=== PATIENT | male | born 1945 | race Caucasian/White ===

== ENCOUNTER 2016-10-04 06:44 | Inpatient (IN) | payer OTHER ==
[2016-10-04] VITALS (29 sets, daily range): BP systolic 68–180; BP diastolic 43–86; PULSE 50–75; TEMP 36.5–36.8; O2SAT 90–96; Ht 165.1 cm; Wt 63.2 kg
[~2016-10-04] VITALS: Ht 165.1 cm; Wt 63.2 kg
[~2016-10-04 06:44] MED LIST: ASPI-232 PO; CMD5 PO; FSM70 PO; ISOS120T5 PO; LSN20 PO; LVNIS80 SQ; METO1TAB69 PO; MULT-506 PO; NITR0.4S UT; NRV/10 PO; NXM/40 PO; ROSU40TA PO; VTMD PO
[2016-10-04] MEDS ORDERED: WARF5TAB7 PO ×2 (07:08)
[2016-10-04] MEDS ORDERED: PRED10TA PO (07:08)
[2016-10-04] MEDS ORDERED: TIZA4CAP PO (07:08)
[2016-10-04] MEDS ORDERED: ONDANSETRON INJ 2 MG/ML 2 ML VIAL IV STA (07:13)
[2016-10-04] MEDS ORDERED: MoRPHine SULFATE 4 MG/ML 1 ML CARP\\VIAL IV STA ×2 (07:13→07:58)
[2016-10-04] MEDS ORDERED: SODIUM CHLORIDE 0.9% 1000ML 1,000 ML IV STA (07:13)
[2016-10-04 07:26] LABS: COMPLETE YES; HEMATOCRIT 44.9 % (42-52); IG% 0.8 %; LYMPH ABS # 0.66 K/uL (1.2-3.4); MEAN CELL VOLUME 89.3 fL (80-100); MEAN CORPUSCULAR HEMOGLOBIN 32.2 pg (25-34); MEAN CORPUSCULAR HGB CONC 36.1 g/dl (32-36); MEAN PLATELET VOLUME 10.6 fL (7.4-10.4); MONO % 7.3 %; NEUT % 78.9 %; PLATELET COUNT 200 K/uL (130-400); RED BLOOD COUNT 5.03 M/uL (4.7-6.1); WHITE BLOOD COUNT 5.07 K/uL (4.8-10.8)
[2016-10-04 07:34] LABS: ALT/SGPT 23 U/L (12-78); AST/SGOT 12 U/L (15-37); BLOOD UREA NITROGEN 12 mg/dl (7-18); BUN/CREATININE RATIO 11.1 (10-20); CALCIUM 9.5 mg/dl (8.5-10.1); CARBON DIOXIDE 26 mmol/L (21-32); CHLORIDE 104 mmol/L (98-107); GLUCOSE 121 mg/dl (70-99); MAGNESIUM 2.4 mg/dl (1.8-2.4); SODIUM 140 mmol/L (136-145)
[2016-10-04 07:36] LABS: URINE APPEARANCE CLEAR (CLEAR); URINE BILIRUBIN NEG (NEG); URINE COLOR YELLOW; URINE NITRITE NEG (NEG); URINE PH 7.5 (4.5-7.5); URINE SPECIFIC GRAVITY 1.004 (1.000-1.030); UROBILINOGEN NEG (NEG); ZZUR CULT IF INDIC CLEAN CATCH NO
[2016-10-04 07:37] LABS: ALB/GLOB RATIO 1.3 (0.9-2); ALKALINE PHOSPHATASE 61 U/L (45-117); C-REACTIVE PROTEIN < 0.29 mg/dl (0-0.29); CKMB/CK RATIO 1.5 (0-3.0)
[2016-10-04 07:38] LABS: MANUAL MICROSCOPIC REQUIRED? NO; REVIEW REQ? NO
--- NOTE | 2016-10-04 07:38 | DIAGNOSTIC IMAGING REPORT ---
CHEST ONE VIEW PORTABLE CLINICAL HISTORY: Headache. COMPARISON STUDY: Chest radiograph December 23, [address] December 25, 2015. FINDINGS: Lung volumes are normal. Linear left basilar opacity is suggestive of atelectasis. Cardiomediastinal silhouette is stable. There is no evidence of pulmonary edema. No consolidation is identified. The appearance of the chest is unchanged. Note is made of old right-sided rib fractures. IMPRESSION: No acute cardiopulmonary findings. Electronically signed by: Trip Mckeon M.D. 10/04/2016 7:36 AM Dictated Date/Time: 10/04/2016 7:35 AM
[2016-10-04 07:41] LABS: PARTIAL THROMBOPLASTIN RATIO 1.7; PROTHROMBIN TIME (PATIENT) 62.2 SECONDS (9.0-12.0)
--- NOTE | 2016-10-04 07:48 | DIAGNOSTIC IMAGING REPORT ---
CT OF THE HEAD WITHOUT CONTRAST CLINICAL HISTORY: Headache. Anticoagulation. COMPARISON STUDY: Head CT February 28, 2012. CT DOSE: 537.48 mGy.cm TECHNIQUE: Helical axial images of the head were obtained without IV contrast. Automated exposure control was utilized for the study. FINDINGS: No acute intracranial hemorrhage, midline shift or mass effect is present. Ventricular system is unremarkable. Basilar cisterns are patent. There are no extra-axial collections. Garcia-white differentiation is maintained. There are no findings to suggest acute dural sinus thrombosis or acute territorial infarct. Extensive calcification of the left supraclinoid ICA is again noted. There is no calvarial fracture. Visualized portions of the sinuses and the mastoid air cells are clear. IMPRESSION: No acute intracranial findings. Electronically signed by: Trip Mckeon M.D. 10/04/2016 7:47 AM Dictated Date/Time: 10/04/2016 7:44 AM
[2016-10-04 07:53] LABS: INR 5.4 (0.9-1.1)
[2016-10-04] MEDS ORDERED: MECLIZINE HCL 25 MG TAB PO STA (08:07)
[2016-10-04 08:19] LABS: LYME DISEASE AB IGG NEG (NEG)
[2016-10-04 08:20] LABS: LYME DISEASE AB IGM NEG (NEG)
--- NOTE | 2016-10-04 09:39 | DIAGNOSTIC IMAGING REPORT ---
MRI OF THE BRAIN WITHOUT CONTRAST CLINICAL HISTORY: Headache. Dizziness. COMPARISON STUDY: Head CT February 28, 2012 and October 04, 2016. TECHNIQUE: Utilizing a 1.5 Farnaz magnet and dedicated coil, multiplanar, multiecho imaging of the brain was performed without IV contrast. FINDINGS: There are no areas of restricted diffusion. No acute intracranial hemorrhage, midline shift or mass effect is present. Ventricular system is unremarkable. Basilar cisterns are patent. There are no extra-axial collections. There is a small old infarct within the right occipital lobe. There is an old infarct within the inferior aspect of the left cerebellar hemisphere. No intracranial masses identified on this unenhanced exam. There is a suspected small old infarct within the left frontoparietal region. Calvarial signal is maintained. Orbits and sinuses are unremarkable. There is no fluid within the mastoid air cells. IMPRESSION: 1. No acute intracranial findings. 2. 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 Electronically signed by: Trip Mckeon M.D. 10/04/2016 9:38 AM Dictated Date/Time: 10/04/2016 9:35 AM
--- NOTE | 2016-10-04 09:56 | DIAGNOSTIC IMAGING REPORT ---
MRA OF THE NECK WITH AND WITHOUT CONTRAST CLINICAL HISTORY: Neck pain. Headache. COMPARISON STUDY: None. TECHNIQUE: Unenhanced and contrast-enhanced MRA of the neck was performed. Injection of 20 mL of Magnevist IV was uneventful. NASCET criteria were utilized to estimate the degree of carotid stenosis. FINDINGS: There is no significant stenosis within the bilateral common carotid and internal carotid arteries. There is mild irregularity within the proximal bilateral internal carotid arteries due to atherosclerosis. There is severe stenosis at the origin of the left external carotid artery and moderate stenosis at the origin the right external carotid artery. There is a diminutive right vertebral artery with dominant left vertebral artery. There is suspected moderate stenosis at the origin of the left vertebral artery. IMPRESSION: 1. No significant stenosis within the bilateral common carotid and internal carotid arteries. 2. Stenosis of the bilateral extracranial carotid artery origins, left greater than right. 3. Suspected mild to moderate stenosis at the origin the right subclavian artery. 4. Diminutive right vertebral artery with dominant left vertebral artery. Mild to moderate stenosis at the origin of the left vertebral artery. Electronically signed by: Trip Mckeon M.D. 10/04/2016 9:55 AM Dictated Date/Time: 10/04/2016 9:51 AM
[2016-10-04] MEDS ORDERED: HYDROmorphone INJ 0.5 MG/0.5 ML SYR IV STA (10:07)
[2016-10-04] MEDS ORDERED: NITROGLYCERIN 0.4 MG SL PER TAB CHARGE UT PRN (11:30)
[2016-10-04] MEDS ORDERED: ONDANSETRON INJ 2 MG/ML 2 ML VIAL IV PRN (11:30)
[2016-10-04] MEDS ORDERED: ACETAMINOPHEN 325 MG TAB PO PRN (11:30)
[2016-10-04] MEDS ORDERED: DIAZEPAM 5MG TAB PO ONE (12:00)
[2016-10-04] MEDS ORDERED: DIAZEPAM 5MG TAB PO SCH (12:00)
[2016-10-04] MEDS ORDERED: METOPROLOL SUCC 50MG EXT REL TAB PO ONE (13:30)
[2016-10-04] MEDS ORDERED: AMLODIPINE BESYLATE 5 MG TAB PO ONE (13:30)
[2016-10-04] MEDS ORDERED: METHYLPREDNISOLONE IV 125 MG in SYRINGE 0 ML IV ONE (13:30)
[2016-10-04] MEDS ORDERED: ISOSORBIDE MONONITRATE 60 MG TABCR PO ONE (13:30)
[2016-10-04] MEDS ORDERED: LISINOPRIL 20 MG TAB PO ONE (13:30)
--- NOTE | 2016-10-04 14:09 | Neurology Consultation ---
Neurology Consultation Date of Consultation: Oct 04, 2016. 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 He states several days ago he was [place] was getting out of the car to open the gate and had some head pressure and felt his muscles were weak. He was started on muscle relaxant and steroids taper for neck pain which he thinks is his neck. Then he had an episode of head pressure and dizziness at home. The pressure felt so bad that he thought his head was going to explode and felt off balance. EMS was called and was brought to the ED for further evaluation. He states he no longer smokes but had a history of 1/2 ppd for many years and no further EtOH use after his last episode in July. He was a 3-4 beer per day history. Past Medical/Surgical History Medical Problems: (1) Precordial chest pain Status: Acute (2) Sigmoid diverticulitis Status: Acute Social History Smoking Status: Former smoker Housing Status: lives with family Allergies Coded Allergies: No Known Allergies (Verified , 07/25/16) Current Inpatient Medications Current Inpatient Medications Medications (Trade) Dose Ordered Sig/Eliud Route Start Time Stop Time Status Last Admin Dose Admin Acetaminophen (Tylenol Tab) 650 mg Q4H PRN PO 10/04/16 11:30 11/03/16 11:29 Ondansetron HCl (Zofran Inj) 4 mg Q6H PRN IV 10/04/16 11:30 11/03/16 11:29 Miscellaneous Information (Order Awaiting Action) 1 ea QS N/A 10/04/16 16:00 11/03/16 15:59 Aspirin (Ecotrin Tab) 81 mg DAILY PO 10/05/16 09:00 11/04/16 08:59 Miscellaneous Information (Order Awaiting Action) 1 ea QS N/A 10/04/16 16:00 11/03/16 15:59 Isosorbide Mononitrate (Imdur Ext Rel Tab) 120 mg QAM PO 10/05/16 09:00 11/04/16 08:59 Lisinopril (Zestril Tab) 20 mg BID PO 10/04/16 21:00 11/03/16 20:59 Metoprolol Succinate (Toprol Xl Tab) 100 mg DAILY PO 10/05/16 09:00 11/04/16 08:59 Multivitamins (Multivitamin Tab) 1 tab DAILY PO 10/05/16 09:00 11/04/16 08:59 Nitroglycerin (Nitrostat Tab) 0.4 mg PRN PRN UT 10/04/16 11:30 11/03/16 11:29 Rosuvastatin Calcium (Crestor Tab) 20 mg DAILY PO 10/05/16 09:00 11/04/16 08:59 Amlodipine Besylate (Norvasc Tab) 10 mg QAM PO 10/05/16 09:00 11/04/16 08:59 Pantoprazole Sodium (Protonix Tab) 40 mg QAM PO 10/05/16 09:00 11/04/16 08:59 Tizanidine HCl (Zanaflex Tab) 2 mg Q6H PRN PO 10/04/16 11:30 11/03/16 11:29 Physical Exam Vital Signs (Past 24 Hrs): Date Time Temp Pulse Resp B/P Pulse Ox O2 Delivery O2 Flow Rate FiO2 10/04/16 12:46 36.5 63 20 180/86 10/04/16 12:17 63 20 162/83 98 Room Air 10/04/16 10:27 69 20 148/79 98 Room Air 10/04/16 09:20 64 18 151/86 98 Room Air 10/04/16 08:20 66 16 173/82 96 Room Air 10/04/16 07:30 59 18 163/93 97 Room Air 10/04/16 06:52 97 Room Air 10/04/16 06:47 36.4 64 18 190/87 96 Room Air Physical Exam: Constitutional: appearance nourished, healthy and normal Ears, Nose, Mouth and Throat: mucous membranes somewhat dry Cardiovascular: normal S-1 and S-2 and regular rate and rhythm Respiratory: clear to auscultation (CTA) and no rales, rhonchi or wheeze Musculoskeletal: no peripheral edema and good distal pulses Skin: no stigmata of neurocutaneous disease noted and normal and intact Eyes: extraocular muscles intact (EOMI) and pupils equal, round and reactive to light (PERRL) NEUROLOGIC EXAMINATION: Mental status: Alert and interactive Oriented to full date and location Oriented to person Speech fluent with no evidence of aphasia Cranial Nerves smile eye brow raise symmetric, tongue midline Reflexes: Deep tendon reflexes were symmetrical and graded 2/5. Plantar responses were flexor. Sensory: vibration and GT proprioception in tact, cool touch bilaterally decreased to quintero Coordination: finger to no without bi pass or tremor Gait/Stance: sitting up in bed. nursing walk with slight lean to left Motor: Negative for pronator drift of out stretched arms with eyes closed. 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 Laboratory Results Past 24 Hours: 10/04/16 06:26 Red Blood Count 5.03, Mean Corpuscular Volume 89.3, Mean Corpuscular Hemoglobin 32.2, Mean Corpuscular Hemoglobin Concent 36.1, Mean Platelet Volume 10.6, Neutrophils (%) (Auto) 78.9, Lymphocytes (%) (Auto) 13.0, Monocytes (%) (Auto) 7.3, Eosinophils (%) (Auto) 0.0, Basophils (%) (Auto) 0.0, Neutrophils # (Auto) 4.00, Lymphocytes # (Auto) 0.66, Monocytes # (Auto) 0.37, Eosinophils # (Auto) 0.00, Basophils # (Auto) 0.00 10/04/16 06:26 Test 10/04/16 06:26 10/04/16 06:50 10/04/16 07:29 White Blood Count 5.07 K/uL (4.8-10.8) Red Blood Count 5.03 M/uL (4.7-6.1) Hemoglobin 16.2 g/dL (14.0-18.0) Hematocrit 44.9 % (42-52) Mean Corpuscular Volume 89.3 fL (80-100) Mean Corpuscular Hemoglobin 32.2 pg (25-34) Mean Corpuscular Hemoglobin Concent 36.1 g/dl (32-36) Platelet Count 200 K/uL (130-400) Mean Platelet Volume 10.6 fL (7.4-10.4) Neutrophils (%) (Auto) 78.9 % Lymphocytes (%) (Auto) 13.0 % Monocytes (%) (Auto) 7.3 % Eosinophils (%) (Auto) 0.0 % Basophils (%) (Auto) 0.0 % Neutrophils # (Auto) 4.00 K/uL (1.4-6.5) Lymphocytes # (Auto) 0.66 K/uL (1.2-3.4) Monocytes # (Auto) 0.37 K/uL (0.11-0.59) Eosinophils # (Auto) 0.00 K/uL (0-0.5) Basophils # (Auto) 0.00 K/uL (0-0.2) RDW Standard Deviation 39.1 fL (36.4-46.3) RDW Coefficient of Variation 12.2 % (11.5-14.5) Immature Granulocyte % (Auto) 0.8 % Immature Granulocyte # (Auto) 0.04 K/uL (0.00-0.02) Erythrocyte Sedimentation Rate 12 mm/hr (0-14) Prothrombin Time 62.2 SECONDS (9.0-12.0) Prothromb Time International Ratio 5.4 (0.9-1.1) Activated Partial Thromboplast Time 43.7 SECONDS (21.0-31.0) Partial Thromboplastin Ratio 1.7 Anion Gap 10.0 mmol/L (3-11) Est Creatinine Clear Calc Drug Dose 52.8 ml/min Estimated GFR () 77.3 Estimated GFR (Non- 66.7 BUN/Creatinine Ratio 11.1 (10-20) Calcium Level 9.5 mg/dl (8.5-10.1) Magnesium Level 2.4 mg/dl (1.8-2.4) Total Bilirubin 0.6 mg/dl (0.2-1) Aspartate Amino Transf (AST/SGOT) 12 U/L (15-37) Alanine Aminotransferase (ALT/SGPT) 23 U/L (12-78) Alkaline Phosphatase 61 U/L (45-117) Total Creatine Kinase 55 U/L (39-308) Creatine Kinase MB 0.8 ng/ml (0.5-3.6) Creatine Kinase MB Ratio 1.5 (0-3.0) C-Reactive Protein < 0.29 mg/dl (0-0.29) Total Protein 8.7 gm/dl (6.4-8.2) Albumin 4.9 gm/dl (3.4-5.0) Globulin 3.8 gm/dl (2.5-4.0) Albumin/Globulin Ratio 1.3 (0.9-2) Lipase 152 U/L (73-393) Lyme Disease IgG Antibody NEG (NEG) Lyme Disease IgM Antibody NEG (NEG) Urine Color YELLOW Urine Appearance CLEAR (CLEAR) Urine pH 7.5 (4.5-7.5) Urine Specific [place] 1.004 (1.000-1.030) Urine Protein NEG (NEG) Urine Glucose (UA) NEG (NEG) Urine Ketones NEG (NEG) Urine Occult Blood NEG (NEG) Urine Nitrite NEG (NEG) Urine Bilirubin NEG (NEG) Urine Urobilinogen NEG (NEG) Urine Leukocyte Esterase NEG (NEG) Bedside Troponin I 0.010 ng/ml (0-0.045) Imaging MRI brain- No acute intracranial findings. 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 MRA neck with and without- . No significant stenosis within the bilateral common carotid and internal carotid arteries. Stenosis of the bilateral extracranial carotid artery origins, left greater than right. Impression 71 year old male s/p dizziness and head pressure Plan 1. MRI with no evidence of new stroke 2. light head may be medication related. would stop any non essential narcotics , muscle relaxants 3. blood pressure control 4. INR -hold coumadin 5. MRA no evidence of occlusion 6. PT/OT for further assessment of dizziness with [place] to r/o vertigo 7. MRV to r/o venous thrombus but doubt due to hyper therapeutic INR I have seen and discussed above patient with Dr Miguel Ángel Han, neurology I have seen this man examined him discussed hishistory with his and with Jailene YI andhave reviewed his labs an imaging. New onset headache in a man without a prior history and some accompanying pulsatile tinnitus type sensations with exposure to new medications of zanaflex and steroids pror to onset of symptoms Imaging negative for new issues and do not show a hindbrain malformation MRV unlkely to show mcuh with high inr but history suggests need to exclude venous sinus clot and would recommend stopping steroids and zanaflex to see what transpires in terms of symptoms will follow with you tomorrow Miguel Ángel Han MD
--- NOTE | 2016-10-04 14:10 | History and Physical ---
History & Physical Date & Time of Service: Oct 04, 2016 at 11:36 Chief Complaint: Headache Primary Care Physician: Mario Mosquera MD History of Present Illness Source: patient, clinic records, hospital records This is a 71 year old male with PMH of left renal and splenic infarcts, severe arthrosclerotic plaque in aortic arch and descending aorta, on Coumadin, CAD, diastolic CHF, chart history of PAF, HTN, dyslipidemia, carotid artery disease, who presents to the ED with headache. Patient was hospitalized in 07/2016 and discovered to have left renal and splenic infarcts with URSULA showing severe atherosclerotic plaque in aortic arch and descending aorta. At that time he was continued on aspirin, Plavix was stopped, and Coumadin was initiated. He underwent Zio monitoring in August 2016 which showed 15 runs of SVT. Patient states he was recently feeling at baseline and hunting every day. Then 4 days ago he developed neck pain L >R, with radiation to both shoulders, then developed diffuse "pressure" headache. He initially thought he pulled a muscle. He lifts a 100 lb bag of corn every day but that is usual for him. He was seen by Dr. Fischer in clinic on 10/01, had x-ray of c-spine showing mild degenerative changes, L shoulder x-ray- unremarkable, and was started on prednisone taper and tizanidine for cervical sprain/ muscle spasm. Patient states pain improved around his shoulders but continued with constant MADRIGAL for past 4 days and neck pain which is worse with movement. He also reports feeling his heart beating in his ears x 4 days. Then this morning while sitting watching TV, he developed worsening head and neck pain rated 8/10 which felt like his "head was going to blow up". Then upon standing he felt dizzy and was staggering. 911 was called and he was brought to ER by ambulance. He was given Dilaudid and morphine in ER with improvement of pain to 5/10. He reports generalized weakness. Denies syncope, fall or head trauma,vertigo, vision change, photophobia, focal weakness or numbness, speech difficulty, fever, chills, sweats, URI symptoms, cough, chest pain, SOB, abdominal pain, N/V, change in bowel or bladder movements, calf pain, edema, abnormal bleeding. Denies prior hx of TIA or CVA. As per RN, when ambulating in ER patient was leaning to the right and stumbling. Past Medical/Surgical History Medical Problems: (1) CAD (coronary artery disease) Permanent Comment: 2009 - NSTEMI 2012 - anterolateral STEMI, s/p POBA to LAD diagonal artery occlusion Status: Chronic (2) Carotid stenosis Status: Chronic (3) Diastolic CHF Permanent Comment: echo 12/2015 - EF 60-65%, grade II diastolic dysfunction Status: Chronic (4) Dyslipidemia Status: Chronic (5) GERD (gastroesophageal reflux disease) Status: Chronic (6) HTN (hypertension) Status: Chronic (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 Status: Chronic (8) Osteoporosis Status: Chronic (9) 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 Status: Chronic Surgical Problems: (1) History of total right hip replacement Status: Chronic Family History Diabetes mellitus FATHER Hypertension MOTHER Stroke MOTHER Social History Smoking Status: Former Smoker (quit in 2005, prior 1/2 ppd for approximately 55 years) Alcohol Use: none (none since July 2016) Drug Use: none Marital Status: Housing status: lives with significant other Immunizations History of Influenza Vaccine: Yes Influenza Vaccine Date: Jun 18, 2016 History of Tetanus Vaccine?: Yes Tetanus Immunization Date: Nov 16, 2013 History of Pneumococcal: Yes Pneumococcal Date: Nov 08, 2015 Multi-Drug Resistant Organisms History of MDRO: No Allergies Coded Allergies: No Known Allergies (Verified , 07/25/16) Home Medications Scheduled Alendronate Sodium (Alendronate Sodium), 70 MG PO 1XWK Amlodipine Besylate (Amlodipine Besylate), 10 MG PO DAILY Aspirin (Aspir-81), 81 MG PO DAILY Ergocalciferol (Vitamin D), 50,000 UNITS PO 1XWK Esomeprazole Magnesium (Nexium), 40 MG PO DAILY Isosorbide Mononitrate Ext Rel (Imdur Ext Rel), 120 MG PO QAM Lisinopril (Lisinopril), 20 MG PO BID Metoprolol Succ (Toprol Xl) (Toprol-Xl ), 100 MG PO DAILY Multivitamin (Multivitamin), 1 TABLET PO DAILY Nitroglycerin (Nitrostat), 0.4 MG UT PRN Prednisone Tab (Prednisone), 10 MG PO UD Rosuvastatin Calcium (Crestor), 20 MG PO DAILY Warfarin Sod (Jantoven), 5 MG PO WK Warfarin Sod (Jantoven), 2.5 MG PO 6XWK Scheduled PRN Tizanidine (Zanaflex), 2 MG PO Q6 PRN for Muscle Spasms Review of Systems Ten point review of systems performed with pertinent positives and negatives noted in HPI. Physical Exam Vital Signs Date Time Temp Pulse Resp B/P Pulse Ox O2 Delivery O2 Flow Rate FiO2 10/04/16 10:27 69 20 148/79 98 Room Air 10/04/16 09:20 64 18 151/86 98 Room Air 10/04/16 08:20 66 16 173/82 96 Room Air 10/04/16 07:30 59 18 163/93 97 Room Air 10/04/16 06:52 97 Room Air 10/04/16 06:47 36.4 64 18 190/87 96 Room Air General Appearance: WD/WN, no apparent distress Head: normocephalic, atraumatic Eyes: normal inspection, PERRL, EOMI ENT: hearing grossly normal, pharynx normal Neck: supple, trachea midline Respiratory/Chest: lungs clear, normal breath sounds, no respiratory distress, no accessory muscle use Cardiovascular: regular rate, rhythm, no murmur Abdomen/GI: normal bowel sounds, non tender, soft Extremities/Musculoskelatal: normal inspection, no calf tenderness, normal capillary refill, no pedal edema, + pertinent finding (L>R cervical paraspinal muscle tenderness. 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, no motor/sensory deficits, alert, normal mood/affect, oriented x 3, + pertinent finding (finger to nose intact bilaterally) Skin: normal color, warm/dry Diagnostics Laboratory Results Results Past 24 Hours Test 10/04/16 06:26 10/04/16 06:50 10/04/16 07:29 Range/Units White Blood Count 5.07 4.8-10.8 K/uL Red Blood Count 5.03 4.7-6.1 M/uL Hemoglobin 16.2 14.0-18.0 g/dL Hematocrit 44.9 42-52 % Mean Corpuscular Volume 89.3 80-100 fL Mean Corpuscular Hemoglobin 32.2 25-34 pg Mean Corpuscular Hemoglobin Concent 36.1 32-36 g/dl Platelet Count 200 130-400 K/uL Mean Platelet Volume 10.6 7.4-10.4 fL Neutrophils (%) (Auto) 78.9 % Lymphocytes (%) (Auto) 13.0 % Monocytes (%) (Auto) 7.3 % Eosinophils (%) (Auto) 0.0 % Basophils (%) (Auto) 0.0 % Neutrophils # (Auto) 4.00 1.4-6.5 K/uL Lymphocytes # (Auto) 0.66 1.2-3.4 K/uL Monocytes # (Auto) 0.37 0.11-0.59 K/uL Eosinophils # (Auto) 0.00 0-0.5 K/uL Basophils # (Auto) 0.00 0-0.2 K/uL RDW Standard Deviation 39.1 36.4-46.3 fL RDW Coefficient of Variation 12.2 11.5-14.5 % Immature Granulocyte % (Auto) 0.8 % Immature Granulocyte # (Auto) 0.04 0.00-0.02 K/uL Erythrocyte Sedimentation Rate 12 0-14 mm/hr Prothrombin Time 62.2 9.0-12.0 SECONDS Prothromb Time International Ratio 5.4 0.9-1.1 Activated Partial Thromboplast Time 43.7 21.0-31.0 SECONDS Partial Thromboplastin Ratio 1.7 Sodium Level 140 136-145 mmol/L Potassium Level 4.0 3.5-5.1 mmol/L Chloride Level 104 98-107 mmol/L Carbon Dioxide Level 26 21-32 mmol/L Anion Gap 10.0 3-11 mmol/L Blood Urea Nitrogen 12 7-18 mg/dl Creatinine 1.10 0.60-1.40 mg/dl Est Creatinine Clear Calc Drug Dose 52.8 ml/min Estimated GFR () 77.3 Estimated GFR (Non- 66.7 BUN/Creatinine Ratio 11.1 10-20 Random Glucose 121 70-99 mg/dl Calcium Level 9.5 8.5-10.1 mg/dl Magnesium Level 2.4 1.8-2.4 mg/dl Total Bilirubin 0.6 0.2-1 mg/dl Aspartate Amino Transf (AST/SGOT) 12 15-37 U/L Alanine Aminotransferase (ALT/SGPT) 23 12-78 U/L Alkaline Phosphatase 61 45-117 U/L Total Creatine Kinase 55 39-308 U/L Creatine Kinase MB 0.8 0.5-3.6 ng/ml Creatine Kinase MB Ratio 1.5 0-3.0 C-Reactive Protein < 0.29 0-0.29 mg/dl Total Protein 8.7 6.4-8.2 gm/dl Albumin 4.9 3.4-5.0 gm/dl Globulin 3.8 2.5-4.0 gm/dl Albumin/Globulin Ratio 1.3 0.9-2 Lipase 152 73-393 U/L Lyme Disease IgG Antibody NEG NEG Lyme Disease IgM Antibody NEG NEG Urine Color YELLOW Urine Appearance CLEAR CLEAR Urine pH 7.5 4.5-7.5 Urine Specific [place] 1.004 1.000-1.030 Urine Protein NEG NEG Urine Glucose (UA) NEG NEG Urine Ketones NEG NEG Urine Occult Blood NEG NEG Urine Nitrite NEG NEG Urine Bilirubin NEG NEG Urine Urobilinogen NEG NEG Urine Leukocyte Esterase NEG NEG Bedside Troponin I 0.010 0-0.045 ng/ml Diagnostic Radiology CT OF THE HEAD WITHOUT CONTRAST CLINICAL HISTORY: Headache. Anticoagulation. COMPARISON STUDY: Head CT February 28, 2012. CT DOSE: 537.48 mGy.cm TECHNIQUE: Helical axial images of the head were obtained without IV contrast. Automated exposure control was utilized for the study. FINDINGS: No acute intracranial hemorrhage, midline shift or mass effect is present. Ventricular system is unremarkable. Basilar cisterns are patent. There are no extra-axial collections. Garcia-white differentiation is maintained. There are no findings to suggest acute dural sinus thrombosis or acute territorial infarct. Extensive calcification of the left supraclinoid ICA is again noted. There is no calvarial fracture. Visualized portions of the sinuses and the mastoid air cells are clear. IMPRESSION: No acute intracranial findings. CHEST ONE VIEW PORTABLE CLINICAL HISTORY: Headache. COMPARISON STUDY: Chest radiograph December 23, [address] December 25, 2015. FINDINGS: Lung volumes are normal. Linear left basilar opacity is suggestive of atelectasis. Cardiomediastinal silhouette is stable. There is no evidence of pulmonary edema. No consolidation is identified. The appearance of the chest is unchanged. Note is made of old right-sided rib fractures. IMPRESSION: No acute cardiopulmonary findings. MRA OF THE NECK WITH AND WITHOUT CONTRAST CLINICAL HISTORY: Neck pain. Headache. COMPARISON STUDY: None. TECHNIQUE: Unenhanced and contrast-enhanced MRA of the neck was performed. Injection of 20 mL of Magnevist IV was uneventful. NASCET criteria were utilized to estimate the degree of carotid stenosis. FINDINGS: There is no significant stenosis within the bilateral common carotid and internal carotid arteries. There is mild irregularity within the proximal bilateral internal carotid arteries due to atherosclerosis. There is severe stenosis at the origin of the left external carotid artery and moderate stenosis at the origin the right external carotid artery. There is a diminutive right vertebral artery with dominant left vertebral artery. There is suspected moderate stenosis at the origin of the left vertebral artery. IMPRESSION: 1. No significant stenosis within the bilateral common carotid and internal carotid arteries. 2. Stenosis of the bilateral extracranial carotid artery origins, left greater than right. 3. Suspected mild to moderate stenosis at the origin the right subclavian artery. 4. Diminutive right vertebral artery with dominant left vertebral artery. Mild to moderate stenosis at the origin of the left vertebral artery. MRI OF THE BRAIN WITHOUT CONTRAST CLINICAL HISTORY: Headache. Dizziness. COMPARISON STUDY: Head CT February 28, 2012 and October 04, 2016. TECHNIQUE: Utilizing a 1.5 Farnaz magnet and dedicated coil, multiplanar, multiecho imaging of the brain was performed without IV contrast. FINDINGS: There are no areas of restricted diffusion. No acute intracranial hemorrhage, midline shift or mass effect is present. Ventricular system is unremarkable. Basilar cisterns are patent. There are no extra-axial collections. There is a small old infarct within the right occipital lobe. There is an old infarct within the inferior aspect of the left cerebellar hemisphere. No intracranial masses identified on this unenhanced exam. There is a suspected small old infarct within the left frontoparietal region. Calvarial signal is maintained. Orbits and sinuses are unremarkable. There is no fluid within the mastoid air cells. IMPRESSION: 1. No acute intracranial findings. 2. 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 EKG NSR, 60 bpm, no ST or T wave abnormalities Impression Assessment and Plan HEADACHE Likely tension headache related to cervical paraspinal muscle spasms Treated with Dilaudid 0.5 mg IV and morphine total of 8 mg IV in ER Outpatient C-spine x-ray showed mild degenerative change; outpatient L shoulder x-ray unremarkable CT head- no acute findings MRI brain- no acute findings; + 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 Will try Valium and methylprednisolone x 1 dose Consult neurology; appreciate recommendations Will hold tizanidine as per neurology- may contribute to dizziness DIZZINESS/ BALANCE DIFFICULTY MRI brain- no acute findings, + 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 MRA neck- "1. No significant stenosis within the bilateral common carotid and internal carotid arteries. 2. Stenosis of the bilateral extracranial carotid artery origins, left greater than right. 3. Suspected mild to moderate stenosis at the origin the right subclavian artery. 4. Diminutive right vertebral artery with dominant left vertebral artery. Mild to moderate stenosis at the origin of the left vertebral artery." Has chart history of PAF; currently in sinus rhythm; Zio monitor Aug 2016 showed mostly sinus with 1st degree AV block with runs of SVT, possibly atrial tachycardia with variable block Continue aspirin and statin (not able to tolerate higher dose due to myalgias as per prior cardiology note) Hold Coumadin for supratherapeutic INR PT/ OT evaluations Consult neurology; appreciate recommendations Will hold tizanidine as per neurology- may be contributing to dizziness HISTORY OF LEFT RENAL AND SPLENIC INFARCT Noted in CT July 2016 URSULA in Jul 2016 showed severe atherosclerotic plaque Saw hematology and rheumatology as outpatient - per rheum note 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 Ejection Fraction = 60-65%. There is mild concentric left ventricular hypertrophy. Grade I diastolic dysfunction, (abnormal relaxation pattern). No significant valvular disease. DVT PROPHYLAXIS SCD's Hold Coumadin due to supratherapeutic INR CODE STATUS Full code per my discussion with the patient DISPOSITION Admitted to telemetry Patient seen in collaboration with Dr. Chaney. Please see her addendum. I have seen, examined and discussed this patient with Ami Delcid and I agree with the above note. 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 Vitals notable for elevated BP on presentation. PE: General- awake; alert; NAD Eyes- EOMI; no scleral icterus Neck- no stridor; trachea midline; no rigidity Lungs- CTA bilaterally anteriorly Heart- RRR; no m/r/g Abdomen- soft; NTND; nBS Extremities- no c/c/e; no deformity Neuro- no gross focal deficits; strength 5/5 bilateral UE and LE Skin- no appreciable rash or bruising Labs, imaging, EKG reviewed. Headache- Neurology consulted. MRI negative for acute stroke. MRV pending. Improved. Avoid narcotics and muscle relaxants as may be contributing to dizziness. HTN- Now hypotensive after receiving home medications plus narcotics. Responds to fluid boluses. Hold home medications for now. Supra-therapeutic INR- Hold warfarin. Agree with remainder of plan as outlined above. . VTE Prophylaxis VTE Risk Assessment Done? Y/N: Yes Risk Level: Moderate
[2016-10-04] MEDS ORDERED: NURSING VERBAL MED ORDER ONE ×2 (17:30→19:00)
[2016-10-04] MEDS ORDERED: SODIUM CHLORIDE 0.9% 1000ML 250 ML IV SCH ×2 (17:45→19:00)
[2016-10-05] VITALS (7 sets, daily range): BP systolic 115–155; BP diastolic 56–73; PULSE 56–81; TEMP 36.4–36.9; O2SAT 93–96
[2016-10-05 05:27] LABS: MEAN CELL VOLUME 90.5 fL (80-100); MEAN CORPUSCULAR HEMOGLOBIN 31.8 pg (25-34); MEAN CORPUSCULAR HGB CONC 35.1 g/dl (32-36); MEAN PLATELET VOLUME 10.2 fL (7.4-10.4); PLATELET COUNT 207 K/uL (130-400); RED BLOOD COUNT 4.53 M/uL (4.7-6.1); WHITE BLOOD COUNT 6.22 K/uL (4.8-10.8)
[2016-10-05 05:33] LABS: INR 3.5 (0.9-1.1); PROTHROMBIN TIME (PATIENT) 38.9 SECONDS (9.0-12.0)
[2016-10-05 06:01] LABS: BUN/CREATININE RATIO 22.7 (10-20); CALCIUM 8.3 mg/dl (8.5-10.1); CREATININE 1.2 mg/dl (0.60-1.40); MAGNESIUM 2.4 mg/dl (1.8-2.4); POTASSIUM 4.3 mmol/L (3.5-5.1)
[2016-10-05] MEDS ORDERED: ALENDRONATE SODIUM 70 MG TAB PO SCH (07:00)
[2016-10-05] MEDS ORDERED: METOPROLOL SUCC 50MG EXT REL TAB PO SCH (09:00)
[2016-10-05] MEDS ORDERED: AMLODIPINE BESYLATE 5 MG TAB PO SCH (09:00)
[2016-10-05] MEDS ORDERED: ERGOCALCIFEROL 50,000 INTER.UNIT CAP PO SCH (09:00)
[2016-10-05] MEDS ORDERED: ISOSORBIDE MONONITRATE 60 MG TABCR PO SCH (09:00)
[2016-10-05] MEDS: ROSUVASTATIN CALCIUM 20 MG TAB PO SCH (09:57)
[2016-10-05] MEDS: ASPIRIN 81 MG ECTAB PO SCH (09:57)
[2016-10-05] MEDS: PANTOprazole SOD 40 MG TAB PO SCH (09:58)
[2016-10-05] MEDS: MULTIVITAMIN TAB PO SCH (09:58)
--- NOTE | 2016-10-05 12:09 | DIAGNOSTIC IMAGING REPORT ---
MRV HEAD WITHOUT CONTRAST CLINICAL HISTORY: Headaches. Evaluate for dural sinus thrombosis. COMPARISON STUDY: Head CT and MRI the brain October 04, 2016. TECHNIQUE: Utilizing a 1.5 Farnaz magnet and [id number] technique, unenhanced MRV of the intracranial circulation was obtained. FINDINGS: The superior sagittal sinus, straight sinus, transverse sinuses and sigmoid sinuses are patent. The left transverse sinus is somewhat diminutive, likely on a congenital basis. A few small apparent filling defects within the sinuses likely reflect arachnoid granulations. No dural sinus thrombus is identified on this examination. IMPRESSION: No evidence of dural sinus thrombosis. Electronically signed by: Trip Mckeon M.D. 10/05/2016 12:08 PM Dictated Date/Time: 10/05/2016 12:04 PM
--- NOTE | 2016-10-05 12:59 | Neurology Progress Notes ---
Neurology Progress Note Date of Service Oct 05, 2016. Quentin Morales is a 71 year old with a PMH of left renal and splenic infarcts, severe arthrosclerotic plaque in aortic arch and descending aorta, on Coumadin, CAD, diastolic CHF, chart history of PAF, HTN, dyslipidemia, carotid artery disease. He states several days ago he was [place] his [place] was getting out of the car to open the gate and had some head pressure and felt his muscles were weak. He was started on muscle relaxant and steroids taper for neck pain which he thinks is his neck. Then he had an episode of head pressure and dizziness at home. The pressure felt so bad that he thought his head was going to explode and felt off balance. EMS was called and was brought to the ED for further evaluation. He states he no longer smokes but had a history of 1/2 ppd for many years and no further EtOH use after his last episode in July. He was a 3-4 beer per day history. He and his are in the room this am. He states his headache is bad again. denies one side weakness numbness tingling, SOB, CP, abdominal pain, N, V. Objective Date Time Temp Pulse Resp B/P Pulse Ox O2 Delivery O2 Flow Rate FiO2 10/05/16 10:00 81 20 124/70 95 Room Air 10/05/16 08:00 Room Air 10/05/16 08:00 36.6 70 20 134/70 94 Room Air 10/05/16 04:00 36.5 57 18 115/65 93 Room Air 10/05/16 04:00 Room Air 10/04/16 23:59 Room Air 10/04/16 23:59 36.6 50 12 97/49 94 Room Air 10/04/16 20:00 36.5 53 14 80/48 93 Room Air 10/04/16 20:00 Room Air 10/04/16 18:46 55 16 82/43 94 10/04/16 18:30 53 16 92/48 94 10/04/16 17:59 55 19 85/45 91 10/04/16 17:48 54 19 91/47 91 10/04/16 17:30 56 20 89/50 92 10/04/16 17:30 55 15 93 10/04/16 17:28 56 14 89/50 92 10/04/16 17:15 57 15 93 10/04/16 17:13 53 14 77/45 94 10/04/16 17:01 56 17 87/50 10/04/16 17:00 53 14 93 10/04/16 16:59 55 16 68/49 10/04/16 16:45 56 16 90 10/04/16 16:30 60 15 90 10/04/16 16:15 57 16 93 10/04/16 16:00 55 17 94 10/04/16 15:58 56 18 135/77 94 10/04/16 15:53 93 Room Air 10/04/16 15:45 56 13 91 10/04/16 15:30 63 20 109/74 94 10/04/16 15:30 55 12 94 10/04/16 15:28 55 22 109/74 91 10/04/16 15:15 54 14 92 10/04/16 15:00 56 11 92 10/04/16 14:30 61 13 92 10/04/16 14:28 63 20 132/80 94 10/04/16 14:00 96 10/04/16 14:00 72 20 93 10/04/16 13:59 36.8 75 15 131/70 91 Room Air 10/04/16 12:46 36.5 63 20 180/86 Last 24 Hours Test 10/05/16 05:10 White Blood Count 6.22 K/uL Red Blood Count 4.53 M/uL Hemoglobin 14.4 g/dL Hematocrit 41.0 % Mean Corpuscular Volume 90.5 fL Mean Corpuscular Hemoglobin 31.8 pg Mean Corpuscular Hemoglobin Concent 35.1 g/dl RDW Standard Deviation 40.8 fL RDW Coefficient of Variation 12.3 % Platelet Count 207 K/uL Mean Platelet Volume 10.2 fL Prothrombin Time 38.9 SECONDS Prothromb Time International Ratio 3.5 Sodium Level 140 mmol/L Potassium Level 4.3 mmol/L Chloride Level 104 mmol/L Carbon Dioxide Level 27 mmol/L Anion Gap 9.0 mmol/L Blood Urea Nitrogen 27 mg/dl Creatinine 1.20 mg/dl Est Creatinine Clear Calc Drug Dose 48.4 ml/min Estimated GFR () 69.6 Estimated GFR (Non- 60.1 BUN/Creatinine Ratio 22.7 Random Glucose 168 mg/dl Calcium Level 8.3 mg/dl Magnesium Level 2.4 mg/dl Imaging: MRV head- FINDINGS: The superior sagittal sinus, straight sinus, transverse sinuses and sigmoid sinuses are patent. The left transverse sinus is somewhat diminutive, likely on a congenital basis. A few small apparent filling defects within the sinuses likely reflect arachnoid granulations. No dural sinus thrombus is identified on this examination. Exam: Physical Exam: Constitutional: , appearance nourished, healthy and normal Ears, Nose, Mouth and Throat: mucous membranes moist, no injection and skin normal, eyes normal Cardiovascular: normal S-1 and S-2 and regular rate and rhythm Respiratory: clear to auscultation (CTA) and no rales, rhonchi or wheeze Musculoskeletal: no peripheral edema and good distal pulses Skin: no stigmata of neurocutaneous disease noted and normal and intact Eyes: extraocular muscles intact (EOMI) and pupils equal, round and reactive to light (PERRL) NEUROLOGIC EXAMINATION: Mental status: Alert and interactive Oriented to full date and location Oriented to person Speech fluent with no evidence of aphasia Cranial Nerves smile, eye brow raise symmetric, tongue midline Reflexes: Deep tendon reflexes were brisk Plantar responses were flexor. Sensory: decreased sensation mid quintero to toes to cool, vibration intact, GT proprioception intact Coordination: Romberg positive for eye closed Gait/Stance: Posture normal. Gait steady small steps, squaring of turn Motor: Negative for pronator drift of out stretched arms with eyes closed. 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 triceps, deltoids bilaterally 5/5, hip flex plantar flex ext 5 /5 bilaterally Current Inpatient Medications Medications (Trade) Dose Ordered Sig/Eliud Route Start Time Stop Time Status Last Admin Dose Admin Acetaminophen (Tylenol Tab) 650 mg Q4H PRN PO 10/04/16 11:30 11/03/16 11:29 Ondansetron HCl (Zofran Inj) 4 mg Q6H PRN IV 10/04/16 11:30 11/03/16 11:29 Aspirin (Ecotrin Tab) 81 mg DAILY PO 10/05/16 09:00 11/04/16 08:59 10/05/16 09:57 81 MG Isosorbide Mononitrate (Imdur Ext Rel Tab) 120 mg QAM PO 10/05/16 09:00 11/04/16 08:59 Future hold Lisinopril (Zestril Tab) 20 mg BID PO 10/04/16 21:00 11/03/16 20:59 Future hold Metoprolol Succinate (Toprol Xl Tab) 100 mg DAILY PO 10/05/16 09:00 11/04/16 08:59 Future Hold Multivitamins (Multivitamin Tab) 1 tab DAILY PO 10/05/16 09:00 11/04/16 08:59 10/05/16 09:58 1 TAB Nitroglycerin (Nitrostat Tab) 0.4 mg PRN PRN UT 10/04/16 11:30 11/03/16 11:29 Rosuvastatin Calcium (Crestor Tab) 20 mg DAILY PO 10/05/16 09:00 11/04/16 08:59 10/05/16 09:57 20 MG Amlodipine Besylate (Norvasc Tab) 10 mg QAM PO 10/05/16 09:00 11/04/16 08:59 Future Hold Pantoprazole Sodium (Protonix Tab) 40 mg QAM PO 10/05/16 09:00 11/04/16 08:59 10/05/16 09:58 40 MG Alendronate Sodium (Fosamax Tab) 70 mg Fr@0700 PO 10/05/16 07:00 11/04/16 06:59 Ergocalciferol (Vitamin D Cap) 50,000 interunit Fr@0900 PO 10/05/16 09:00 11/04/16 08:59 10/05/16 09:59 50,000 INTERUNIT Impression 71 year old male s/p dizziness and head pressure Plan 1. MRI with no evidence of new stroke 2. light headedness may be medication related. would stop any non essential narcotics, muscle relaxants 3. blood pressure control yesterday meds held for low BP, this am restarted 4. INR -hold Coumadin restart when appropriate 5. MRA no evidence of occlusion 6. PT/OT for discharge needs 7. MRV to r/o venous thrombus but doubt due to hyper therapeutic INR, some congenital abnormalities but no thrombus 8. if blood pressure remain labile would order TTE and order cardiology consult I have seen and discussed above patient with Dr Miguel Ángel Han, neurology Better headache much less rare pulsatile sensations and mrv is normal ( not surprised ) cause of syndrome not clear but suspect steroids and perhaps zanaflex ( even though both agents are often used to treat headaches ) BP fluctuating and inr is still falling I will check him tomorrow but for now neurology has no further recommendations Above reviewd with Jailene Han MD
--- NOTE | 2016-10-05 18:15 | Progress Note ---
Medicine Progress Note Date & Time of Visit: Oct 05, 2016 at 18:05. Subjective Patient seen and examined. Head pressure significantly better today. Denies any dizziness or lightheadedness. Objective Last 8 Hrs Date Time Temp Pulse Resp B/P Pulse Ox O2 Delivery O2 Flow Rate FiO2 10/05/16 16:00 Room Air 10/05/16 16:00 36.9 56 15 119/68 96 Room Air 10/05/16 12:00 66 16 155/73 94 Room Air Physical Exam: General-awake; alert; NAD Eyes-EOMI; no scleral icterus Neck-no stridor; trachea midline Lungs-CTA bilaterally; no wheezes/crackles Heart-RRR Abdomen-soft; NTND; nBS Extremities-no c/c/e; no deformity Neuro-no gross focal deficits Laboratory Results: Last 24 Hours Test 10/05/16 05:10 White Blood Count 6.22 K/uL Red Blood Count 4.53 M/uL Hemoglobin 14.4 g/dL Hematocrit 41.0 % Mean Corpuscular Volume 90.5 fL Mean Corpuscular Hemoglobin 31.8 pg Mean Corpuscular Hemoglobin Concent 35.1 g/dl RDW Standard Deviation 40.8 fL RDW Coefficient of Variation 12.3 % Platelet Count 207 K/uL Mean Platelet Volume 10.2 fL Prothrombin Time 38.9 SECONDS Prothromb Time International Ratio 3.5 Sodium Level 140 mmol/L Potassium Level 4.3 mmol/L Chloride Level 104 mmol/L Carbon Dioxide Level 27 mmol/L Anion Gap 9.0 mmol/L Blood Urea Nitrogen 27 mg/dl Creatinine 1.20 mg/dl Est Creatinine Clear Calc Drug Dose 48.4 ml/min Estimated GFR () 69.6 Estimated GFR (Non- 60.1 BUN/Creatinine Ratio 22.7 Random Glucose 168 mg/dl Calcium Level 8.3 mg/dl Magnesium Level 2.4 mg/dl Assessment & Plan HEADACHE Possible tension headache related to cervical paraspinal muscle spasms Received Dilaudid and morphine in ER Outpatient C-spine x-ray showed mild degenerative change; outpatient L shoulder x-ray unremarkable CT head- no acute findings MRI brain- no acute findings; + 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 MRV negative for thrombus Consulted neurology Will hold tizanidine as per neurology- may contribute to dizziness 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 Noted in CT July 2016 URSULA in Jul 2016 showed severe atherosclerotic plaque Saw hematology and rheumatology as outpatient - per rheum note 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 Ejection Fraction = 60-65%. There is mild concentric left ventricular hypertrophy. Grade I diastolic dysfunction, (abnormal relaxation pattern). No significant valvular disease. DVT PROPHYLAXIS SCD's Hold Coumadin due to supratherapeutic INR CODE STATUS Full code Consultants: Neurology Procedures: CT head No acute intracranial findings. MRA neck 1. No significant stenosis within the bilateral common carotid and internal carotid arteries. 2. Stenosis of the bilateral extracranial carotid artery origins, left greater than right. 3. Suspected mild to moderate stenosis at the origin the right subclavian artery. 4. Diminutive right vertebral artery with dominant left vertebral artery. Mild to moderate stenosis at the origin of the left vertebral artery. MRI brain 1. No acute intracranial findings. 2. 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 MRV head No evidence of dural sinus thrombosis. Current Inpatient Medications: Current Inpatient Medications Medications (Trade) Dose Ordered Sig/Eliud Route Start Time Stop Time Status Last Admin Dose Admin Acetaminophen (Tylenol Tab) 650 mg Q4H PRN PO 10/04/16 11:30 11/03/16 11:29 Ondansetron HCl (Zofran Inj) 4 mg Q6H PRN IV 10/04/16 11:30 11/03/16 11:29 Aspirin (Ecotrin Tab) 81 mg DAILY PO 10/05/16 09:00 11/04/16 08:59 10/05/16 09:57 81 MG Isosorbide Mononitrate (Imdur Ext Rel Tab) 120 mg QAM PO 10/05/16 09:00 11/04/16 08:59 Future hold Lisinopril (Zestril Tab) 20 mg BID PO 10/04/16 21:00 11/03/16 20:59 Future hold Metoprolol Succinate (Toprol Xl Tab) 100 mg DAILY PO 10/05/16 09:00 11/04/16 08:59 Future Hold Multivitamins (Multivitamin Tab) 1 tab DAILY PO 10/05/16 09:00 11/04/16 08:59 10/05/16 09:58 1 TAB Nitroglycerin (Nitrostat Tab) 0.4 mg PRN PRN UT 10/04/16 11:30 11/03/16 11:29 Rosuvastatin Calcium (Crestor Tab) 20 mg DAILY PO 10/05/16 09:00 11/04/16 08:59 10/05/16 09:57 20 MG Amlodipine Besylate (Norvasc Tab) 10 mg QAM PO 10/05/16 09:00 11/04/16 08:59 Future Hold Pantoprazole Sodium (Protonix Tab) 40 mg QAM PO 10/05/16 09:00 11/04/16 08:59 10/05/16 09:58 40 MG Alendronate Sodium (Fosamax Tab) 70 mg Fr@0700 PO 10/05/16 07:00 11/04/16 06:59 Ergocalciferol (Vitamin D Cap) 50,000 interunit Fr@0900 PO 10/05/16 09:00 11/04/16 08:59 10/05/16 09:59 50,000 INTERUNIT
[2016-10-05] MEDS: LISINOPRIL 20 MG TAB PO SCH (20:35)
[2016-10-06 00:01] VITALS: O2SAT 95
[2016-10-06 03:09] VITALS: BP 136/69; PULSE 58; TEMP 36.5; O2SAT 94
[2016-10-06 04:00] VITALS: O2SAT 94
[2016-10-06 06:58] LABS: HEMATOCRIT 40.2 % (42-52); MEAN CELL VOLUME 89.9 fL (80-100); MEAN CORPUSCULAR HEMOGLOBIN 32.2 pg (25-34); MEAN CORPUSCULAR HGB CONC 35.8 g/dl (32-36); MEAN PLATELET VOLUME 10.3 fL (7.4-10.4); PLATELET COUNT 169 K/uL (130-400); RED BLOOD COUNT 4.47 M/uL (4.7-6.1); WHITE BLOOD COUNT 5.01 K/uL (4.8-10.8)
[2016-10-06 07:13] LABS: INR 2.4 (0.9-1.1); PROTHROMBIN TIME (PATIENT) 27.1 SECONDS (9.0-12.0)
[2016-10-06 07:37] LABS: BUN/CREATININE RATIO 23.5 (10-20); CALCIUM 8.3 mg/dl (8.5-10.1); CREATININE 1.1 mg/dl (0.60-1.40); POTASSIUM 3.6 mmol/L (3.5-5.1)
[2016-10-06] MEDS: PANTOprazole SOD 40 MG TAB PO SCH (08:01)
[2016-10-06] MEDS: MULTIVITAMIN TAB PO SCH (08:01)
[2016-10-06] MEDS: ASPIRIN 81 MG ECTAB PO SCH (08:02)
[2016-10-06] MEDS: ROSUVASTATIN CALCIUM 20 MG TAB PO SCH (08:02)
[2016-10-06] MEDS: LISINOPRIL 20 MG TAB PO SCH (08:02)
[2016-10-06 08:03] VITALS: BP 132/69; PULSE 54; TEMP 36.7; O2SAT 95
--- NOTE | 2016-10-06 12:12 | Discharge Instructions ---
Discharge Instructions Admission Reason for Admission: Headache Discharge Discharge Diagnosis / Problem: Headache Discharge Goals Goal(s): Decrease discomfort Activity Recommendations Activity Limitations: resume your previous activity . Instructions / Follow-Up Instructions / Follow-Up Please follow up with Family Medicine Dr. Mosquera on October 10 at 12: 50pm. Please follow up with Cardiology Noel Knapp on October 17 at 1:15pm. You will be contacted regarding anticoagulation clinic follow up. Please take your medications as previously prescribed. Current Hospital Diet Patient's current hospital diet: AHA Diet (Heart Healthy) Discharge Diet Recommended Diet: AHA Diet (Heart Healthy) Pending Studies Studies pending at discharge: no Medical Emergencies . Who to Call and When: Medical Emergencies: If at any time you feel your situation is an emergency, please call 911 immediately. . Non-Emergent Contact Non-Emergency issues call your: Primary Care Provider, Set Up / Operator . . "Provider Documentation" section prepared by Maria Elena Choi. VTE Core Measure Inpt VTE Proph given/why not?: Warfarin (Coumadin)
[2016-10-06 12:27] VITALS: BP 110/62; PULSE 77; TEMP 36.4; O2SAT 93
--- NOTE | 2016-10-06 12:28 | PROGRESS NOTE ---
DATE: 10/06/2016 Andrew has been moved out of the unit. He is now in room 239 and probably will be discharged as he is completely free of headaches. He is walking without assistance. He feels he is back to his baseline and his INR is now finally in the therapeutic range. At this point, we do not have an explanation for his headache syndrome other than the fact that he was put on medications which he had not seen before, i.e. prednisone and Zanaflex. Of the 2 I would more suspect the prednisone for being responsible, but again we are not even sure if medications were involved. He has not had any evidence for a subarachnoid hemorrhage despite his elevated INR. There is no venous sinus thrombosis. There is no evidence for new CVA or significant arterial lesions. At this point, then I think he can be discharged to follow up with his primary care physician and if headaches return then neurology can get re-involved in this case, but for now I do not think we need to see him on a regular basis. MTDSena
[2016-10-06 12:29] VITALS: BP 110/62; PULSE 77; TEMP 36.4; O2SAT 93
--- NOTE | 2016-10-06 15:52 | Discharge Summary ---
Discharge Summary Admission Date: Oct 04, 2016 at 11:23 Discharge Date: Oct 06, 2016 Discharge Disposition: Home Principal Diagnosis: Headache Procedures: CT head No acute intracranial findings. MRA neck 1. No significant stenosis within the bilateral common carotid and internal carotid arteries. 2. Stenosis of the bilateral extracranial carotid artery origins, left greater than right. 3. Suspected mild to moderate stenosis at the origin the right subclavian artery. 4. Diminutive right vertebral artery with dominant left vertebral artery. Mild to moderate stenosis at the origin of the left vertebral artery. MRI brain 1. No acute intracranial findings. 2. 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 MRV head No evidence of dural sinus thrombosis. Consultations: Neurology Medication Reconciliation Continued Medications: Alendronate Sodium (Alendronate Sodium) 70 Mg Tab 70 MG PO 1XWK, #4 TAKE 70 MG ONCE A WEEK Amlodipine Besylate (Amlodipine Besylate) 10 Mg Tab 10 MG PO DAILY Aspirin (Aspir-81) 81 Mg Tab 81 MG PO DAILY, TAB 3 Refills Ergocalciferol (Vitamin D) 50,000 Interunit Cap 05636 UNITS PO 1XWK, #12 TAKE 35927 UNITS OF VITAMIN D ONCE A WEEK FOR 12 WEEKS Esomeprazole Magnesium (Nexium) 40 Mg Capcr 40 MG PO DAILY, 0 Refills Isosorbide Mononitrate Ext Rel (Imdur Ext Rel) 120 Mg Ertab 120 MG PO QAM, 0 Refills Lisinopril (Lisinopril) 20 Mg Tab 20 MG PO BID, #90 Metoprolol Succ (Toprol Xl) (Toprol-Xl ) 100 Mg Tabcr 100 MG PO DAILY, 0 Refills Multivitamin (Multivitamin) Tab 1 TABLET PO DAILY, 0 Refills Nitroglycerin (Nitrostat) 0.4 Mg Sub 0.4 MG UT PRN, SUB NEEDED FOR CHEST PAIN : ONE TABLET UNDER THE TONGUE EVERY 5 MINUTES UP TO 3 DOSES. Rosuvastatin Calcium (Crestor) 40 Mg Tab 20 MG PO DAILY Warfarin Sod (Jantoven) 5 Mg Tab 5 MG PO WK, TAB TUESDAYS Warfarin Sod (Jantoven) 5 Mg Tab 2.5 MG PO 6XWK, TAB SATURDAY,SATURDAY,SATURDAY,SATURDAY,SATURDAY,SATURDAY Discontinued Medications: Prednisone Tab (Prednisone) 10 Mg Tab 10 MG PO UD, TAB TAPERED DOSE. 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 Patient was hospitalized in 07/2016 and discovered to have left renal and splenic infarcts with URSULA showing severe atherosclerotic plaque in aortic arch and descending aorta. At that time he was continued on aspirin, Plavix was stopped, and Coumadin was initiated. He underwent Zio monitoring in August 2016 which showed 15 runs of SVT. Patient states he was recently feeling at baseline and hunting every day. Then 4 days ago he developed neck pain L >R, with radiation to both shoulders, then developed diffuse "pressure" headache. He initially thought he pulled a muscle. He lifts a 100 lb bag of corn every day but that is usual for him. He was seen by Dr. Fischer in clinic on 10/01, had x-ray of c-spine showing mild degenerative changes, L shoulder x-ray- unremarkable, and was started on prednisone taper and tizanidine for cervical sprain/ muscle spasm. Patient states pain improved around his shoulders but continued with constant MADRIGAL for past 4 days and neck pain which is worse with movement. He also reports feeling his heart beating in his ears x 4 days. Then this morning while sitting watching TV, he developed worsening head and neck pain rated 8/10 which felt like his "head was going to blow up". Then upon standing he felt dizzy and was staggering. 911 was called and he was brought to ER by ambulance. He was given Dilaudid and morphine in ER with improvement of pain to 5/10. He reports generalized weakness. Denies syncope, fall or head trauma,vertigo, vision change, photophobia, focal weakness or numbness, speech difficulty, fever, chills, sweats, URI symptoms, cough, chest pain, SOB, abdominal pain, N/V, change in bowel or bladder movements, calf pain, edema, abnormal bleeding. Denies prior hx of TIA or CVA. As per RN, when ambulating in ER patient was leaning to the right and stumbling. Physical Exam (per Admitting): General Appearance: WD/WN, no apparent distress Head: normocephalic, atraumatic Eyes: normal inspection, PERRL, EOMI ENT: hearing grossly normal, pharynx normal Neck: supple, trachea midline Respiratory/Chest: lungs clear, normal breath sounds, no respiratory distress, no accessory muscle use Cardiovascular: regular rate, rhythm, no murmur Abdomen/GI: normal bowel sounds, non tender, soft Extremities/Musculoskelatal: normal inspection, no calf tenderness, normal capillary refill, no pedal edema, + pertinent finding (L>R cervical paraspinal muscle tenderness. 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 This may have been related to proceeding neck pain, or perhaps related to new medications (ie- tizanidine and/or prednisone); it remains unclear. Patient received Dilaudid and morphine in the ED without improvement. CT head was negative. MRI brain showed 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. MRV was negative for thrombus. Neurology was consulted. Tizanidine and prednisone were discontinued. Patient's headache resolved. PT evaluated patient and felt that he was at his baseline and could safely return home from their perspective. Patient's hospital course was notable for labile blood pressures. This was felt to be likely 2/2 IV pain medications that patient had received in the ED in combination with patient's home antihypertensives. Blood pressures normalized. Hospital course was also notable for elevated INR (5.4 on admission). Coumadin was held and INR normalized at the time of discharge (2.4). Patient was instructed to resume his home medication regimen upon discharge. Patient deemed stable for discharge with Family Medicine follow up. PE on discharge: General- awake; alert; NAD Eyes- EOMI; no scleral icterus Neck- no stridor; trachea midline Lungs- CTA bilaterally; no wheezes/crackles Heart- RRR; no m/r/g Abdomen- soft; NTND; nBS Back- no gross abnormalities Extremities- no c/c/e; no deformity Neuro- no gross focal deficits Skin- no appreciable rash or bruise . Total time spent on discharge = This includes examination of the patient, discharge planning, medication reconciliation, and communication with other providers. Discharge Instructions Discharge Instructions Admission Reason for Admission: Headache Discharge Discharge Diagnosis / Problem: Headache Discharge Goals Goal(s): Decrease discomfort Activity Recommendations Activity Limitations: resume your previous activity . Instructions / Follow-Up Instructions / Follow-Up Please follow up with Family Medicine Dr. Mosquera on October 10 at 12: 50pm. Please follow up with Cardiology Noel Knapp on October 17 at 1:15pm. You will be contacted regarding anticoagulation clinic follow up. Please take your medications as previously prescribed. Current Hospital Diet Patient's current hospital diet: AHA Diet (Heart Healthy) Discharge Diet Recommended Diet: AHA Diet (Heart Healthy) Pending Studies Studies pending at discharge: no Medical Emergencies . Who to Call and When: Medical Emergencies: If at any time you feel your situation is an emergency, please call 911 immediately. . Non-Emergent Contact Non-Emergency issues call your: Primary Care Provider, Knife Glazer . . "Provider Documentation" section prepared by Maria Elena Choi. VTE Core Measure Inpt VTE Proph given/why not?: Warfarin (Coumadin) Additional Copies To Mario Mosquera MD
[2016-10-06] MEDS ORDERED: FRCT/ PO (18:10)
--- NOTE | 2016-10-10 17:20 | EMERGENCY ROOM VISIT NOTE ---
History First contact with patient: 06:52 Chief Complaint: HEADACHE Stated Complaint: HEADACHE History of Present Illness The patient is a 71 year old male who presents to the Emergency Department via EMS for evaluation of a headache. He reports that he has had a waxing and waning headache for the past 2-3 days. He reports intensification of the headache with pulsating to the bilateral moravian area today. He is tried over- the-counter medications without relief of symptoms. The patient is currently taking Coumadin secondary to kidney and splenic infarcts in the past. The patient denies any blurry or double vision. He reports no slurred speech, facial droop, unilateral weakness/numbness, chest pain, palpitations, shortness of breath. The patient does report some mild dizziness and unsteadiness on his feet. He rates his current discomfort as an 8/10. Patient denies any recent illness, fevers, chills, nausea, vomiting, abdominal pain, or extremity weakness. Review of Systems A complete 10-point Review of Systems was discussed with the patient, with pertinent positives and negatives listed in the History of Present Illness. All remaining Review of Systems questions can be considered negative unless otherwise specified. 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 Surgical Problems: (1) History of total right hip replacement Family History Diabetes mellitus FATHER Hypertension MOTHER Stroke MOTHER Social History Smoking Status: Former Smoker (quit in 2005, prior 1/2 ppd for approximately 55 years) Alcohol Use: occasionally Drug Use: none Marital Status: Housing Status: lives with family Current/Historical Medications Scheduled Acetamin/Butalbital/Caffeine (Fioricet), 1 TAB PO Q4 Alendronate Sodium (Alendronate Sodium), 70 MG PO 1XWK Amlodipine Besylate (Amlodipine Besylate), 10 MG PO DAILY Aspirin (Aspir-81), 81 MG PO DAILY Ergocalciferol (Vitamin D), 50,000 UNITS PO 1XWK Esomeprazole Magnesium (Nexium), 40 MG PO DAILY Isosorbide Mononitrate Ext Rel (Imdur Ext Rel), 120 MG PO QAM Lisinopril (Lisinopril), 20 MG PO BID Metoprolol Succ (Toprol Xl) (Toprol-Xl ), 100 MG PO DAILY Multivitamin (Multivitamin), 1 TABLET PO DAILY Nitroglycerin (Nitrostat), 0.4 MG UT PRN Rosuvastatin Calcium (Crestor), 20 MG PO DAILY Warfarin Sod (Jantoven), 5 MG PO WK Warfarin Sod (Jantoven), 2.5 MG PO 6XWK Allergies Coded Allergies: No Known Allergies (Verified , 10/06/16) Physical Exam Vital Signs Date Time Temp Pulse Resp B/P Pulse Ox O2 Delivery O2 Flow Rate FiO2 10/04/16 10:27 69 20 148/79 98 Room Air 10/04/16 09:20 64 18 151/86 98 Room Air 10/04/16 08:20 66 16 173/82 96 Room Air 10/04/16 07:30 59 18 163/93 97 Room Air 10/04/16 06:52 97 Room Air 10/04/16 06:47 36.4 64 18 190/87 96 Room Air Pain Rating (0-10): 8 Physical Exam VITAL SIGNS - Vital signs and nursing notes were reviewed. GENERAL - 71-year-old male appearing his stated age who is in no acute distress. Communicates well with provider and answers questions appropriately. HEAD - Normocephalic, Atraumatic. No Izquierdo's Sign or Raccoon's Eyes. No depressed skull fractures palpable. EYES - PERRL with EOMI bilaterally. Sclera anicteric. Palpebral conjunctiva pink and moist with no injection noted. EARS - No deformities of external structures noted on gross examination bilaterally. No pain elicited with palpation of the tragus bilaterally. External auditory canals without discharge or otorrhea. Tympanic membranes pearly garcia without retraction or bulging. NOSE - Midline and without cyanosis. No epistaxis or purulent drainage noted. Septum midline without deviation or septal hematoma noted. MOUTH/OROPHARYNX - Without perioral cyanosis. Buccal mucosa pink and moist and without leukoplakia. Tongue midline with equal elevation of palate bilaterally. No tonsillar hypertrophy, erythema, or exudates noted. NECK - Neck with FROM. Supple to palpation. No lymphadenopathy noted. No nuchal rigidity. LUNGS - Chest wall symmetric without accessory muscle use, intercostals retractions, or central cyanosis. Normal vesicular breath sounds CTA B/L. No wheezes, rales, or rhonchi appreciated. CARDIAC - RRR with S1/S2. No murmur, rubs, or gallops appreciated. ABDOMEN - Abdominal contour flat and without pulsations or visible masses. BS normoactive all four quadrants. No tenderness, palpable masses, hepatosplenomegaly, or ascites noted. EXTREMITIES - No pretibial edema present. +3/5 radial and dorsalis pedis pulses palpated throughout. FROM with no tremors, fasciculations, or clonus noted on PROM throughout. +5/5 strength noted in UE/LE bilaterally. NEUROLOGIC - Cranial nerves II through XII grossly intact. Sensory intact to light touch throughout. Patellar reflexes +2/4. Patient able to perform rapid alternating movements appropriately. Negative Pronator Drift. PSYCH - A&Ox3 and cooperates fully with examiner. Pt is very pleasant and interacts well with examiner. Medical Decision & Procedures ER Provider Diagnostic Interpretation: Radiological imaging and reports were reviewed by myself. Radiologist's Interpretation as follows: CT OF THE HEAD WITHOUT CONTRAST CLINICAL HISTORY: Headache. Anticoagulation. COMPARISON STUDY: Head CT February 28, 2012. CT DOSE: 537.48 mGy.cm TECHNIQUE: Helical axial images of the head were obtained without IV contrast. Automated exposure control was utilized for the study. FINDINGS: No acute intracranial hemorrhage, midline shift or mass effect is present. Ventricular system is unremarkable. Basilar cisterns are patent. There are no extra-axial collections. Garcia-white differentiation is maintained. There are no findings to suggest acute dural sinus thrombosis or acute territorial infarct. Extensive calcification of the left supraclinoid ICA is again noted. There is no calvarial fracture. Visualized portions of the sinuses and the mastoid air cells are clear. IMPRESSION: No acute intracranial findings. CHEST ONE VIEW PORTABLE CLINICAL HISTORY: Headache. COMPARISON STUDY: Chest radiograph December 23, [address] December 25, 2015. FINDINGS: Lung volumes are normal. Linear left basilar opacity is suggestive of atelectasis. Cardiomediastinal silhouette is stable. There is no evidence of pulmonary edema. No consolidation is identified. The appearance of the chest is unchanged. Note is made of old right-sided rib fractures. IMPRESSION: No acute cardiopulmonary findings. MRA OF THE NECK WITH AND WITHOUT CONTRAST CLINICAL HISTORY: Neck pain. Headache. COMPARISON STUDY: None. TECHNIQUE: Unenhanced and contrast-enhanced MRA of the neck was performed. Injection of 20 mL of Magnevist IV was uneventful. NASCET criteria were utilized to estimate the degree of carotid stenosis. FINDINGS: There is no significant stenosis within the bilateral common carotid and internal carotid arteries. There is mild irregularity within the proximal bilateral internal carotid arteries due to atherosclerosis. There is severe stenosis at the origin of the left external carotid artery and moderate stenosis at the origin the right external carotid artery. There is a diminutive right vertebral artery with dominant left vertebral artery. There is suspected moderate stenosis at the origin of the left vertebral artery. IMPRESSION: 1. No significant stenosis within the bilateral common carotid and internal carotid arteries. 2. Stenosis of the bilateral extracranial carotid artery origins, left greater than right. 3. Suspected mild to moderate stenosis at the origin the right subclavian artery. 4. Diminutive right vertebral artery with dominant left vertebral artery. Mild to moderate stenosis at the origin of the left vertebral artery. MRI OF THE BRAIN WITHOUT CONTRAST CLINICAL HISTORY: Headache. Dizziness. COMPARISON STUDY: Head CT February 28, 2012 and October 04, 2016. TECHNIQUE: Utilizing a 1.5 Farnaz magnet and dedicated coil, multiplanar, multiecho imaging of the brain was performed without IV contrast. FINDINGS: There are no areas of restricted diffusion. No acute intracranial hemorrhage, midline shift or mass effect is present. Ventricular system is unremarkable. Basilar cisterns are patent. There are no extra-axial collections. There is a small old infarct within the right occipital lobe. There is an old infarct within the inferior aspect of the left cerebellar hemisphere. No intracranial masses identified on this unenhanced exam. There is a suspected small old infarct within the left frontoparietal region. Calvarial signal is maintained. Orbits and sinuses are unremarkable. There is no fluid within the mastoid air cells. IMPRESSION: 1. No acute intracranial findings. 2. 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 Laboratory Results Test 10/04/16 06:26 10/04/16 06:50 10/04/16 07:29 Immature Granulocyte % (Auto) 0.8 % White Blood Count 5.07 K/uL (4.8-10.8) Red Blood Count 5.03 M/uL (4.7-6.1) Hemoglobin 16.2 g/dL (14.0-18.0) Hematocrit 44.9 % (42-52) Mean Corpuscular Volume 89.3 fL (80-100) Mean Corpuscular Hemoglobin 32.2 pg (25-34) Mean Corpuscular Hemoglobin Concent 36.1 g/dl (32-36) Platelet Count 200 K/uL (130-400) Mean Platelet Volume 10.6 fL (7.4-10.4) Neutrophils (%) (Auto) 78.9 % Lymphocytes (%) (Auto) 13.0 % Monocytes (%) (Auto) 7.3 % Eosinophils (%) (Auto) 0.0 % Basophils (%) (Auto) 0.0 % Neutrophils # (Auto) 4.00 K/uL (1.4-6.5) Lymphocytes # (Auto) 0.66 K/uL (1.2-3.4) Monocytes # (Auto) 0.37 K/uL (0.11-0.59) Eosinophils # (Auto) 0.00 K/uL (0-0.5) Basophils # (Auto) 0.00 K/uL (0-0.2) Immature Granulocyte # (Auto) 0.04 K/uL (0.00-0.02) Erythrocyte Sedimentation Rate 12 mm/hr (0-14) Activated Partial Thromboplast Time 43.7 SECONDS (21.0-31.0) Partial Thromboplastin Ratio 1.7 Total Bilirubin 0.6 mg/dl (0.2-1) Aspartate Amino Transf (AST/SGOT) 12 U/L (15-37) Alanine Aminotransferase (ALT/SGPT) 23 U/L (12-78) Alkaline Phosphatase 61 U/L (45-117) Total Creatine Kinase 55 U/L (39-308) Creatine Kinase MB 0.8 ng/ml (0.5-3.6) Creatine Kinase MB Ratio 1.5 (0-3.0) C-Reactive Protein < 0.29 mg/dl (0-0.29) Total Protein 8.7 gm/dl (6.4-8.2) Albumin 4.9 gm/dl (3.4-5.0) Globulin 3.8 gm/dl (2.5-4.0) Albumin/Globulin Ratio 1.3 (0.9-2) Lipase 152 U/L (73-393) Lyme Disease IgG Antibody NEG (NEG) Lyme Disease IgM Antibody NEG (NEG) Urine Color YELLOW Urine Appearance CLEAR (CLEAR) Urine pH 7.5 (4.5-7.5) Urine Specific [place] 1.004 (1.000-1.030) Urine Protein NEG (NEG) Urine Glucose (UA) NEG (NEG) Urine Ketones NEG (NEG) Urine Occult Blood NEG (NEG) Urine Nitrite NEG (NEG) Urine Bilirubin NEG (NEG) Urine Urobilinogen NEG (NEG) Urine Leukocyte Esterase NEG (NEG) Bedside Troponin I 0.010 ng/ml (0-0.045) Medications Administered Medications (Trade) Dose Ordered Sig/Eliud Route Start Time Stop Time Status Last Admin Dose Admin Sodium Chloride (Nss 1000ml) 1,000 ml @ 100 mls/hr Q10H STAT IV 10/04/16 07:13 10/04/16 13:14 DC 10/04/16 07:54 100 MLS/HR Ondansetron HCl (Zofran Inj) 4 mg NOW STAT IV 10/04/16 07:13 10/04/16 07:17 DC 10/04/16 07:27 4 MG Morphine Sulfate (MoRPHine SULFATE INJ) 4 mg NOW STAT IV 10/04/16 07:13 10/04/16 07:17 DC 10/04/16 07:27 4 MG Morphine Sulfate (MoRPHine SULFATE INJ) 4 mg NOW STAT IV 10/04/16 07:58 10/04/16 07:59 DC 10/04/16 08:05 4 MG Meclizine HCl (Antivert Tab) 25 mg NOW STAT PO 10/04/16 08:07 10/04/16 08:08 DC 10/04/16 08:20 25 MG Hydromorphone HCl (Dilaudid Inj) 0.5 mg NOW STAT IV 10/04/16 10:07 10/04/16 10:08 DC 10/04/16 10:29 0.5 MG Procedure Patient was placed on the biology teacher and monitored throughout the entire extent of their stay. In addition, the patient's pulse oximetry was monitored throughout the entire stay. Any abnormalities or aberrancies were addressed appropriately. ECG Indication: weakness Rate (beats per minute): 60 Rhythm: normal sinus Findings: nonspecific-ST abn, no acute ischemic change, no ectopy Change: no significant change (from 07/27/2016.) ED Course Patient was seen and evaluated by myself. Labs were drawn, saline lock in place. CT the head and chest x-ray were obtained. EKG was obtained. Patient was hydrated with normal saline at a rate of 100 mL per hour. The patient was treated with 4 mg Zofran and [address] the head and chest are unremarkable. EKG chemistries no acute findings. Patient was treated with an additional 4 mg morphine for pain. Case was reviewed with my attending physician who agrees the diagnostic approach and treatment plan. The patient was treated with 25 mg meclizine orally. MRI and MRA were obtained of the head and neck. Laboratory results demonstrate no acute leukocytosis, worrisome anemia, or bandemia. The patient denies any significant electrolyte abnormalities. ESR and CRP are not elevated. INR was significantly elevated at 5.4. Troponin is negative. Lyme titer was negative. Imaging studies above. Laboratory results and imaging studies were reviewed with the patient who acknowledges understanding. The patient was treated with an additional 0.5 mg Dilaudid for pain. Patient was admitted to the [facility] service for continued management. Patient admitted in stable condition. Medical Decision Given the patient's presentation and stated complaints, I did elect to perform the above-mentioned workup. The patient presents today with an intense headache with associated nausea and dizziness. Patient's pain was adequately controlled the emergency department. Initial CT was negative. Regardless, the patient's symptoms have been ongoing despite management and emergency setting. I did perform MRI and MRA as he does have pain in his neck and head. MRI concerning for old RIGHT occipital and LEFT cerebellar infarcts. Given the patient's balance issues, I question of this certainly could be new findings. Regardless, the patient warrants admission for further evaluation and management. The patient was admitted in stable condition. In the evaluation and treatment of this patient, the following differential diagnoses were considered: Migraine Headache, Intracranial Hemorrhage, Subdural Hematoma, Subarachnoid Hemorrhage, Cerebral Aneurysm, Temporal/Giant Cell Arteritis, Tension Headache, Meningitis, Encephalitis, or Hydrocephalus. Impression Primary Impression: Headache Additional Impression: Dizziness Departure Information Dispostion Admitted as an inpatient Condition FAIR Referrals Mario Mosquera MD (PCP) Forms HOME CARE DOCUMENTATION FORM, IMPORTANT VISIT INFORMATION Patient Instructions My [facility] Problem Qualifiers Primary Impression: Headache Headache type: unspecified Headache chronicity pattern: acute headache Intractability: intractable Qualified Codes: R51 - Headache
[2016-10-12] MEDS ORDERED: ULT50X PO (18:40)
[2016-10-12] MEDS ORDERED: FLX5 PO (18:40)
== END 2016-10-06 20:15 | disposition home or self-care (01) | DRG 103 ==
LOC: ENRESERVTM → ENRESERVDT → EDBD 06:44 → C.EDB 06:45 → C.MSICU 11:23 → C.2T 10-05 17:53
PROVIDERS: ADMIT Internal Medicine; ATTEND Internal Medicine
DX: G44.209 Tension-type headache, unspecified, not intractable (principal); I50.32 Chronic diastolic (congestive) heart failure; M79.1 Myalgia; I65.23 Occlusion and stenosis of bilateral carotid arteries; I48.0 Paroxysmal atrial fibrillation; I25.10 Atherosclerotic heart disease of native coronary artery without angina pectoris; E78.5 Hyperlipidemia, unspecified; M19.90 Unspecified osteoarthritis, unspecified site; K21.9 Gastro-esophageal reflux disease without esophagitis; I70.0 Atherosclerosis of aorta; M81.0 Age-related osteoporosis without current pathological fracture; I11.0 Hypertensive heart disease with heart failure; Z79.01 Long term (current) use of anticoagulants; Z79.82 Long term (current) use of aspirin; Z87.891 Personal history of nicotine dependence; Z79.52 Long term (current) use of systemic steroids; Z79.899 Other long term (current) drug therapy; Z87.448 Personal history of other diseases of urinary system; Z86.718 Personal history of other venous thrombosis and embolism

== ENCOUNTER 2016-10-06 15:31 | Emergency (ER) | payer OTHER ==
[~2016-10-06] VITALS: Ht 165.1 cm; Wt 62.0 kg
[~2016-10-06 15:31] MED LIST changes: -CMD5 PO; -LVNIS80 SQ; +PRED10TA PO; +TIZA4CAP PO; +WARF5TAB7 PO
[2016-10-06 15:35] VITALS: TEMP 36.3; Ht 165.1 cm; Wt 62.0 kg
[2016-10-06] MEDS ORDERED: BUTALBITAL/ACETAMIN/CAFFEINE TAB PO STA (16:23)
--- NOTE | 2016-10-06 16:47 | DIAGNOSTIC IMAGING REPORT ---
CHEST ONE VIEW PORTABLE CLINICAL HISTORY: Altered mental status and weakness COMPARISON STUDY: 10/04/2016 FINDINGS: The cardiac and mediastinal contours are normal. There is no evidence of focal pulmonary consolidation. There is no evidence of failure. No pleural effusions are visualized.[ There are stable old right-sided rib fractures. There is stable linear atelectasis/scarring at the left lung base. IMPRESSION: No active disease in the chest. Electronically signed by: Nacho Sandoval M.D. 10/06/2016 4:45 PM Dictated Date/Time: 10/06/2016 4:45 PM
[2016-10-06 16:58] LABS: BASO % 0.1 %; BASO ABS # 0.01 K/uL (0-0.2); COMPLETE YES; EOS % 2.8 %; HEMATOCRIT 42.9 % (42-52); IG% 0.4 %; LYMPH ABS # 1.23 K/uL (1.2-3.4); MEAN CELL VOLUME 89.7 fL (80-100); MEAN CORPUSCULAR HEMOGLOBIN 31.6 pg (25-34); MEAN CORPUSCULAR HGB CONC 35.2 g/dl (32-36); MONO % 8.1 %; NEUT % 70.6 %; PLATELET COUNT 204 K/uL (130-400); RED BLOOD COUNT 4.78 M/uL (4.7-6.1); WHITE BLOOD COUNT 6.82 K/uL (4.8-10.8)
[2016-10-06 16:59] VITALS: O2SAT 98
[2016-10-06] MEDS ORDERED: OPTIRAY 320 IV PRN (17:00)
[2016-10-06 17:15] LABS: BLOOD UREA NITROGEN 27 mg/dl (7-18); BUN/CREATININE RATIO 20.5 (10-20); CALCIUM 8.4 mg/dl (8.5-10.1); CARBON DIOXIDE 26 mmol/L (21-32); CHLORIDE 105 mmol/L (98-107); GLUCOSE 166 mg/dl (70-99); MAGNESIUM 2.4 mg/dl (1.8-2.4); POTASSIUM 3.5 mmol/L (3.5-5.1); SODIUM 142 mmol/L (136-145)
[2016-10-06 17:20] LABS: CKMB/CK RATIO 1.1 (0-3.0)
--- NOTE | 2016-10-06 17:51 | DIAGNOSTIC IMAGING REPORT ---
CT HEAD WITHOUT CONTRAST (CT) CLINICAL HISTORY: Altered mental status, weakness. COMPARISON STUDY: CT scan dated 10/04/2016 TECHNIQUE: Axial CT of the brain is performed from the vertex to the skull base. IV contrast was not administered for this examination. CT DOSE: 537.48 mGy.cm FINDINGS: No intra or extra-axial mass lesions are visualized. There is no CT evidence of acute cortical infarction. There is no evidence of midline shift. There is no acute hemorrhage. No calvarial fractures are visualized. There are minimal white matter hypodensities likely on a small vessel basis. There is old right occipital lobe infarct. There is no evidence of pathologic ventricular dilatation. There is no evidence of acute sinusitis IMPRESSION: No acute intracranial findings Electronically signed by: Nacho Sandoval M.D. 10/06/2016 5:50 PM Dictated Date/Time: 10/06/2016 5:48 PM
--- NOTE | 2016-10-06 17:59 | DIAGNOSTIC IMAGING REPORT ---
CT ABD/PELVIS IV CONTRAST ONLY CLINICAL HISTORY: Adrenal mass COMPARISON STUDY: 07/25/2016 TECHNIQUE: Following the IV administration of 90 mL of Optiray-320, CT scan of the abdomen and pelvis was performed from the lung bases to the proximal femurs. Images are reviewed in the axial, sagittal, and coronal planes. IV contrast was administered without complication. CT DOSE: 276.62 mGy.cm FINDINGS: Lower chest: There are bibasal atelectatic changes. Liver: There is hepatic steatosis. No focal masses are visualized. Gallbladder: Unremarkable. Spleen: There is a tiny lower pole splenic infarct Pancreas: Unremarkable. Adrenal glands: Unremarkable. Kidneys: There is interval decrease in the size of a wedge-shaped mid to upper pole left renal hypodensity. This is most consistent with an evolving renal infarct. There is a lower pole left renal cortical scar. There is a stable 3.5 cm right renal cyst. Bowel: There are no transition zones indicate bowel obstruction. There is diverticulosis. There are no acute peridiverticular inflammatory changes. There are no findings to indicate acute appendicitis. Peritoneum: There is no intraperitoneal free air or abdominal ascites. Vasculature: The abdominal aorta is normal in course and caliber. Adenopathy: None. Pelvic viscera: There is mild bladder distention. No bladder calculi are visualized. There is mild prostamegaly. Skeletal structures: There are postsurgical changes involving the right hip. IMPRESSION: 1. Normal evolutionary changes of left renal and splenic infarcts 2. Stable right renal cyst 3. No evidence of bowel obstruction. No evidence of free air 4. No evidence of acute appendicitis. No evidence of acute diverticulitis. 5. No evidence of and adrenal mass as was clinically queried Electronically signed by: Nacho Sandoval M.D. 10/06/2016 5:57 PM Dictated Date/Time: 10/06/2016 5:50 PM
[2016-10-06 18:02] VITALS: BP 117/66; PULSE 72
[2016-10-06] MEDS ORDERED: FRCT/ PO (18:10)
--- NOTE | 2016-10-06 18:11 | EMERGENCY ROOM VISIT NOTE ---
History Report prepared by Isaias: Chelly Sexton Under the Supervision of: Dr. Jordan Varela D.O. First contact with patient: 16:11 Chief Complaint: HEAD PAIN Stated Complaint: EARS BANGING, HEAD PRESSURE History of Present Illness The patient is a 71 year old male who presents to the Emergency Room with complaints of a persistent headache that started 2 hours ago. He describes the headache as pressure and states that it is gradually worsening like it did 2 days ago. However, the pain is not as severe as it was two days ago. The patient was just discharged from the hospital about 3 hours ago. He was admitted to the hospital for the same symptoms. He received a CT head, MRA neck , MRI brain, and MRV head while he was in the hospital. They also consulted Neurology. The patient's states that the patient felt well when he was discharged. When he got home, he took a shower then ate some ice cream. After eating the ice cream, he sat down in his recliner. While he was sitting in his recliner, he started to experience pain in his back, between his shoulder blades , that radiated up into his head. The patient's states that his face got erythematous. He states that he can feel his heartbeat in his head and he can hear it in his ears. The patient's adds that when he got out of the car to come into the ED he had trouble ambulating because he didn't have any balance. However, the patient was still able to ambulate with help. He denies diaphoresis and nausea. His states that he was also shaking and that his blood pressure tends to increase with the symptoms. The patient states that the highest his blood pressure got while he was in the hospital was 107 and the lowest was in the 40s. His states that they attributed the low blood pressure to giving the patient all of his medications at one time. The patient denies experiencing any similar problems in the past with the exception of his most recent admission. The patient is on Coumadin. Source of History: patient, spouse/significant other () Onset: two hours ago Position: head Quality: pressure Timing: other (persistent) Associated Symptoms: + back pain, + neck pain, No diaphoresis, No nausea Note: erythematous face, can feel his heartbeat in his head, can hear heartbeat in his ears, trouble ambulating due to lack of balance Review of Systems See HPI for pertinent positives & negatives. A total of 10 systems reviewed and were otherwise negative. 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 Surgical Problems: (1) History of total right hip replacement Family History Diabetes mellitus FATHER Hypertension MOTHER Stroke MOTHER Social History Smoking Status: Former Smoker Alcohol Use: occasionally Drug Use: none Marital Status: Housing Status: lives with family Current/Historical Medications Scheduled Acetamin/Butalbital/Caffeine (Fioricet), 1 TAB PO Q4 Alendronate Sodium (Alendronate Sodium), 70 MG PO 1XWK Amlodipine Besylate (Amlodipine Besylate), 10 MG PO DAILY Aspirin (Aspir-81), 81 MG PO DAILY Ergocalciferol (Vitamin D), 50,000 UNITS PO 1XWK Esomeprazole Magnesium (Nexium), 40 MG PO DAILY Isosorbide Mononitrate Ext Rel (Imdur Ext Rel), 120 MG PO QAM Lisinopril (Lisinopril), 20 MG PO BID Metoprolol Succ (Toprol Xl) (Toprol-Xl ), 100 MG PO DAILY Multivitamin (Multivitamin), 1 TABLET PO DAILY Nitroglycerin (Nitrostat), 0.4 MG UT PRN Rosuvastatin Calcium (Crestor), 20 MG PO DAILY Warfarin Sod (Jantoven), 5 MG PO WK Warfarin Sod (Jantoven), 2.5 MG PO 6XWK Allergies Coded Allergies: No Known Allergies (Verified , 10/06/16) Physical Exam Vital Signs Date Time Temp Pulse Resp B/P Pulse Ox O2 Delivery O2 Flow Rate FiO2 10/06/16 18:02 72 117/66 Room Air 10/06/16 16:59 83 18 107/68 98 Room Air 10/06/16 16:08 82 10/06/16 15:35 36.3 103 20 184/82 95 Room Air Physical Exam VITAL SIGNS: were reviewed as above. GENERAL:Non-toxic in appearance. SKIN: Warm dry and pink. HEAD: Normocephalic and atraumatic. OROPHARYNX: Is clear and moist NECK: Supple without lymphadenopathy or meningismus. LUNGS: clear. HEART: Regular rate and rhythm. ABDOMEN: Soft and nontender. EXTREMITIES: Warm and well perfused. NEUROLOGICALLY: Awake alert and oriented without focal deficit. Cranial nerves 2 -12 are intact. There is no pronator drift. Cerebellar testing is within normal limits. There is no nystagmus. There is no facial droop. Speech is clear. Vision is grossly normal. MUSCULOSKELETAL: Good muscle tone. No evidence of trauma. Medical Decision & Procedures ER Provider Diagnostic Interpretation: X ray results and stated below per my interpretation and radiologist interpretation. Other radiology results and stated below per my review and radiologist interpretation: CHEST ONE VIEW PORTABLE CLINICAL HISTORY: Altered mental status and weakness COMPARISON STUDY: 10/04/2016 FINDINGS: The cardiac and mediastinal contours are normal. There is no evidence of focal pulmonary consolidation. There is no evidence of failure. No pleural effusions are visualized.[ There are stable old right-sided rib fractures. There is stable linear atelectasis/scarring at the left lung base. IMPRESSION: No active disease in the chest. Electronically signed by: Nacho Sandoval M.D. 10/06/2016 4:45 PM Dictated Date/Time: 10/06/2016 4:[address] HEAD WITHOUT CONTRAST (CT) CLINICAL HISTORY: Altered mental status, weakness. COMPARISON STUDY: CT scan dated 10/04/2016 TECHNIQUE: Axial CT of the brain is performed from the vertex to the skull base. IV contrast was not administered for this examination. CT DOSE: 537.48 mGy.cm FINDINGS: No intra or extra-axial mass lesions are visualized. There is no CT evidence of acute cortical infarction. There is no evidence of midline shift. There is no acute hemorrhage. No calvarial fractures are visualized. There are minimal white matter hypodensities likely on a small vessel basis. There is old right occipital lobe infarct. There is no evidence of pathologic ventricular dilatation. There is no evidence of acute sinusitis IMPRESSION: No acute intracranial findings Electronically signed by: Nacho Sandoval M.D. 10/06/2016 5:50 PM Dictated Date/Time: 10/06/2016 5:[address] ABD/PELVIS IV CONTRAST ONLY CLINICAL HISTORY: Adrenal mass COMPARISON STUDY: 07/25/2016 TECHNIQUE: Following the IV administration of 90 mL of Optiray-320, CT scan of the abdomen and pelvis was performed from the lung bases to the proximal femurs. Images are reviewed in the axial, sagittal, and coronal planes. IV contrast was administered without complication. CT DOSE: 276.62 mGy.cm FINDINGS: Lower chest: There are bibasal atelectatic changes. Liver: There is hepatic steatosis. No focal masses are visualized. Gallbladder: Unremarkable. Spleen: There is a tiny lower pole splenic infarct Pancreas: Unremarkable. Adrenal glands: Unremarkable. Kidneys: There is interval decrease in the size of a wedge-shaped mid to upper pole left renal hypodensity. This is most consistent with an evolving renal infarct. There is a lower pole left renal cortical scar. There is a stable 3.5 cm right renal cyst. Bowel: There are no transition zones indicate bowel obstruction. There is diverticulosis. There are no acute peridiverticular inflammatory changes. There are no findings to indicate acute appendicitis. Peritoneum: There is no intraperitoneal free air or abdominal ascites. Vasculature: The abdominal aorta is normal in course and caliber. Adenopathy: None. Pelvic viscera: There is mild bladder distention. No bladder calculi are visualized. There is mild prostamegaly. Skeletal structures: There are postsurgical changes involving the right hip. IMPRESSION: 1. Normal evolutionary changes of left renal and splenic infarcts 2. Stable right renal cyst 3. No evidence of bowel obstruction. No evidence of free air 4. No evidence of acute appendicitis. No evidence of acute diverticulitis. 5. No evidence of and adrenal mass as was clinically queried Electronically signed by: Nacho Sandoval M.D. 10/06/2016 5:57 PM Dictated Date/Time: 10/06/2016 5:50 PM Laboratory Results 10/06/16 16:50 Red Blood Count 4.78, Mean Corpuscular Volume 89.7, Mean Corpuscular Hemoglobin 31.6, Mean Corpuscular Hemoglobin Concent 35.2, Mean Platelet Volume 10.0, Neutrophils (%) (Auto) 70.6, Lymphocytes (%) (Auto) 18.0, Monocytes (%) (Auto) 8.1, Eosinophils (%) (Auto) 2.8, Basophils (%) (Auto) 0.1, Neutrophils # (Auto) 4.81, Lymphocytes # (Auto) 1.23, Monocytes # (Auto) 0.55, Eosinophils # (Auto) 0.19, Basophils # (Auto) 0.01 10/06/16 16:50 Test 10/06/16 16:50 White Blood Count 6.82 K/uL (4.8-10.8) Red Blood Count 4.78 M/uL (4.7-6.1) Hemoglobin 15.1 g/dL (14.0-18.0) Hematocrit 42.9 % (42-52) Mean Corpuscular Volume 89.7 fL (80-100) Mean Corpuscular Hemoglobin 31.6 pg (25-34) Mean Corpuscular Hemoglobin Concent 35.2 g/dl (32-36) Platelet Count 204 K/uL (130-400) Mean Platelet Volume 10.0 fL (7.4-10.4) Neutrophils (%) (Auto) 70.6 % Lymphocytes (%) (Auto) 18.0 % Monocytes (%) (Auto) 8.1 % Eosinophils (%) (Auto) 2.8 % Basophils (%) (Auto) 0.1 % Neutrophils # (Auto) 4.81 K/uL (1.4-6.5) Lymphocytes # (Auto) 1.23 K/uL (1.2-3.4) Monocytes # (Auto) 0.55 K/uL (0.11-0.59) Eosinophils # (Auto) 0.19 K/uL (0-0.5) Basophils # (Auto) 0.01 K/uL (0-0.2) RDW Standard Deviation 39.8 fL (36.4-46.3) RDW Coefficient of Variation 12.3 % (11.5-14.5) Immature Granulocyte % (Auto) 0.4 % Immature Granulocyte # (Auto) 0.03 K/uL (0.00-0.02) Anion Gap 11.0 mmol/L (3-11) Est Creatinine Clear Calc Drug Dose 44.7 ml/min Estimated GFR () 63.2 Estimated GFR (Non- 54.5 BUN/Creatinine Ratio 20.5 (10-20) Calcium Level 8.4 mg/dl (8.5-10.1) Magnesium Level 2.4 mg/dl (1.8-2.4) Total Creatine Kinase 45 U/L (39-308) Creatine Kinase MB 0.5 ng/ml (0.5-3.6) Creatine Kinase MB Ratio 1.1 (0-3.0) Troponin I < 0.015 ng/ml (0-0.045) Laboratory results as stated above per my review. Medications Administered Medications (Trade) Dose Ordered Sig/Eliud Route Start Time Stop Time Status Last Admin Dose Admin Acetaminophen/ Butalbital/ Caffeine (Fioricet Tab) 1 tab NOW STAT PO 10/06/16 16:23 10/06/16 16:27 DC 10/06/16 16:55 1 TAB ECG Indication: back/shoulder pain Rate (beats per minute): 83 Rhythm: normal sinus Findings: no acute ischemic change, no ectopy ED Course 1618: Previous medical records were reviewed. The patient was evaluated in room B3. A complete history and physical examination was performed. 162: Ordered Fioricet Tab 1 tab PO 1805: On reevaluation, the patient is doing well. I discussed the results and findings with the patient. He verbalized agreement of the treatment plan. He was discharged home. Medical Decision Differential includes: Acute intracranial bleed, trauma, meningitis, encephalitis, increased intracranial pressure, mass or mass effect, facial or dental infection, temporal arteritis, CVA, TIA, acute hypertensive emergency, sinusitis, carbon monoxide exposure, pheochromocytoma. This is a 71-year-old male who presents to the ED with a chief complaint of a headache. The patient initially states that his complaint is that he hears his heart beating in his ears. He also reports some pain in the back of his head that radiates up into the head. The patient also at times, according to the , turns red. The patient's symptoms have been evaluated over the past couple of days in the hospital. He has had multiple studies including MRIs, CAT scan, blood work as well as neurological evaluation. The exact cause was not determined. The patient's initial blood pressure was 184/82. When I saw him, it was 124/71. He has a normal neurological exam. He does not appear to be in any distress. He states that his symptoms are milder than when he came into the hospital last . A twelve-lead EKG shows a normal sinus rhythm at a rate of 83. CBC is normal. Chemistry panel reveals a BUN of 27 and glucose 166. Troponin was negative. CT scan of head did not show acute process. A chest x-ray was negative for acute disease. CT scan of the pelvis did not show adrenal mass or other acute abnormality. The patient's blood pressure prior to disposition was 107/68. He was treated with Fioricet. He states this helped more than the morphine did when he was admitted. He is felt to be stable for discharge. He was given a prescription for Fioricet. Impression Primary Impression: Headache Additional Impression: HTN (hypertension) Scribe Attestation The scribe's documentation has been prepared under my direction and personally reviewed by me in its entirety. I confirm that the note above accurately reflects all work, treatment, procedures, and medical decision making performed by me. Departure Information Dispostion Home / Self-Care Prescriptions Acetamin/Butalbital/Caffeine (FIORICET) 1 Ea Tab 1 TAB PO Q4 for Headache, #30 TAB Prov: Jordan Varela D.O. 10/06/16 Referrals Mario Mosquera MD (PCP) Forms HOME CARE DOCUMENTATION FORM, IMPORTANT VISIT INFORMATION, WORK / SCHOOL INSTRUCTIONS Patient Instructions My [facility] [employer] Additional Instructions Fioricet as prescribed/as needed. Sent to [facility] on [address] Follow-up with your doctors next week as scheduled. Return for significant worsening or new concerns. Problem Qualifiers
[2016-10-12] MEDS ORDERED: FLX5 PO (18:40)
[2016-10-12] MEDS ORDERED: ULT50X PO (18:40)
== END 2016-10-06 18:28 | disposition home or self-care (01) ==
LOC: C.EDB 15:32
DX: R51 Headache (principal); I11.0 Hypertensive heart disease with heart failure; I50.32 Chronic diastolic (congestive) heart failure; I25.10 Atherosclerotic heart disease of native coronary artery without angina pectoris; E78.5 Hyperlipidemia, unspecified; K21.9 Gastro-esophageal reflux disease without esophagitis; I70.0 Atherosclerosis of aorta; M81.0 Age-related osteoporosis without current pathological fracture; Z79.899 Other long term (current) drug therapy; Z79.01 Long term (current) use of anticoagulants; Z79.82 Long term (current) use of aspirin; Z87.891 Personal history of nicotine dependence; Z82.49 Family history of ischemic heart disease and other diseases of the circulatory system; Z83.3 Family history of diabetes mellitus; Z82.3 Family history of stroke

== ENCOUNTER 2016-10-10 08:46 | Observation (INO) | payer OTHER ==
[~2016-10-10] VITALS: Ht 177.8 cm; Wt 64.1 kg
[~2016-10-10 08:46] MED LIST changes: +FRCT/ PO; -PRED10TA PO; -TIZA4CAP PO
[2016-10-10 09:29] LABS: BASO % 0.2 %; BASO ABS # 0.01 K/uL (0-0.2); COMPLETE YES; EOS % 4.4 %; IG% 0.4 %; LYMPH ABS # 1.04 K/uL (1.2-3.4); MEAN CELL VOLUME 88.4 fL (80-100); MEAN CORPUSCULAR HEMOGLOBIN 31.5 pg (25-34); MEAN CORPUSCULAR HGB CONC 35.7 g/dl (32-36); MEAN PLATELET VOLUME 10.5 fL (7.4-10.4); MONO % 8.4 %; NEUT % 66.6 %; PLATELET COUNT 191 K/uL (130-400); RED BLOOD COUNT 4.98 M/uL (4.7-6.1); WHITE BLOOD COUNT 5.21 K/uL (4.8-10.8)
[2016-10-10 09:36] LABS: BUN/CREATININE RATIO 9.3 (10-20); CALCIUM 9.5 mg/dl (8.5-10.1); POTASSIUM 3.8 mmol/L (3.5-5.1)
[2016-10-10 09:39] LABS: ALB/GLOB RATIO 1.2 (0.9-2)
[2016-10-10 10:36] LABS: PROTHROMBIN TIME (PATIENT) 53.5 SECONDS (9.0-12.0)
[2016-10-10 10:37] LABS: INR 4.7 (0.9-1.1)
--- NOTE | 2016-10-10 11:08 | DIAGNOSTIC IMAGING REPORT ---
HEAD CT NONCONTRAST CT DOSE: 537.48 mGy.cm HISTORY: Mental status change headache TECHNIQUE: Multiaxial CT images of the head were performed without the use of intravenous contrast. Comparison: 10/06/2016 Findings: The paranasal sinuses and mastoid air cells are clear. Chronic small vessel change with mild age-related change. No acute intracranial abnormality. No midline shift. No interval change from the prior exam. Impression: Chronic and age-related change. No acute process. Electronically signed by: Noel Youngblood M.D. 10/10/2016 11:07 AM Dictated Date/Time: 10/10/2016 11:05 AM
[2016-10-10 12:11] VITALS: O2SAT 95; Ht 177.8 cm; Wt 64.1 kg
[2016-10-10] MEDS ORDERED: NITROGLYCERIN 0.4 MG SL PER TAB CHARGE SL PRN (13:00)
[2016-10-10] MEDS ORDERED: KETOROLAC TROMETHAMINE 15 MG/ML VIAL IV. PRN ×3 (13:00→19:00)
[2016-10-10] MEDS ORDERED: BUTALBITAL/ACETAMIN/CAFFEINE TAB PO PRN (13:00)
[2016-10-10] MEDS ORDERED: ACETAMINOPHEN 325 MG TAB PO PRN (13:00)
[2016-10-10] MEDS ORDERED: ONDANSETRON INJ 2 MG/ML 2 ML VIAL IV PRN (13:00)
[2016-10-10] MEDS ORDERED: KETOROLAC TROMETHAMINE 30 MG/ML VIAL IV STA (13:19)
[2016-10-10] MEDS ORDERED: LIDODERM (LIDOCAINE) PATCH 5% TD ONE (13:19)
[2016-10-10] MEDS ORDERED: TRAMADOL HCL 50 MG TAB PO PRN (13:30)
[2016-10-10] MEDS ORDERED: IV FLUIDS COMPLETED PRN (13:30)
--- NOTE | 2016-10-10 13:30 | History and Physical ---
History & Physical Date & Time of Service: Oct 10, 2016 at 13:06 Chief Complaint: Unable To Ambulate Primary Care Physician: Mario Mosquera MD History of Present Illness Source: patient, family, clinic records, hospital records Patient seen and examined. 71 year old male with PMHx CAD, PAF, HTN, HLD, h/o left renal/splenic infarcts and severe arthrosclerotic plaque to aortic arch and descending aorta on coumadin presents to the ED complaining of headache and ambulatory dysfunction prior to arrival. Patient reports that when he woke up this morning he felt in his usual health, he reports he was sitting in his recliner when he developed BL shoulder pain with radiation to the neck and into the head. The pain in his shoulder feels like he pulled a muscle. His head pain feels like pressure "like my head is going to explode." He has associated pounding in the BL ears. He reports the headache is 6-7/10 in intensity. His family was going to bring him to the ED but he was having generalized weakness and difficulty ambulating. He fell to his knees and was unable to get up without help. He was also tremulous. Patient was admitted to this hospital from 10/04-10/06 with similar symptoms. He had a MRA neck, CT MRI and MRV head/brain which were negative for acute causes. He had been on prednisone and Zanaflex for the shoulder pain which were thought to be the cause and these were discontinued. The patient went home on 10/06 and returned to the ER within hours with the same symptoms. CT head was again negative at this time and he was given Fioricet and discharged home. He reports that Fioricet is helping some. Today the only symptom different than previous is the generalized tremor. Before last week patient reports he has never had headaches like this before. He denies history of seizures and migraines. He denies fevers, chills, photophobia, phonophobia, tinnitus, vision changes, syncope, head trauma, unilateral weakness, facial droop, slurred speech, chest pain, SOB, palpitations , nausea, vomiting, diarrhea, dysuria, calf pain and edema. Patient reports the headache is starting to get a little better without medical intervention. In the ED VS are stable, CT head is again negative for acute processes, CBC, PRP are unremarkable, INR is 4.7. He will be observed for further workup and treatment. Past Medical/Surgical History Medical Problems: (1) CAD (coronary artery disease) Permanent Comment: 2010 - NSTEMI 2012 - anterolateral STEMI, s/p POBA to LAD diagonal artery occlusion Status: Chronic (2) Carotid stenosis Status: Chronic (3) Diastolic CHF Permanent Comment: echo 12/2015 - EF 60-65%, grade II diastolic dysfunction Status: Chronic (4) Dyslipidemia Status: Chronic (5) GERD (gastroesophageal reflux disease) Status: Chronic (6) HTN (hypertension) Status: Chronic (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 Status: Chronic (8) Osteoporosis Status: Chronic (9) 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 Status: Chronic Surgical Problems: (1) History of total right hip replacement Status: Chronic Family History Diabetes mellitus FATHER Hypertension MOTHER Stroke MOTHER Social History Smoking Status: Former Smoker Alcohol Use: none Drug Use: none Marital Status: Housing status: lives with significant other Immunizations History of Influenza Vaccine: Yes Influenza Vaccine Date: Jun 18, 2016 History of Tetanus Vaccine?: Yes Tetanus Immunization Date: Nov 16, 2013 History of Pneumococcal: Yes Pneumococcal Date: Nov 08, 2015 Multi-Drug Resistant Organisms History of MDRO: No Allergies Coded Allergies: No Known Allergies (Verified , 10/06/16) Home Medications Scheduled Alendronate Sodium (Alendronate Sodium), 70 MG PO 1XWK Amlodipine Besylate (Amlodipine Besylate), 10 MG PO DAILY Aspirin (Aspir-81), 81 MG PO DAILY Cyclobenzaprine HCl (Cyclobenzaprine HCl), 5 MG PO BID Ergocalciferol (Vitamin D), 50,000 UNITS PO 1XWK Esomeprazole Magnesium (Nexium), 40 MG PO DAILY Isosorbide Mononitrate Ext Rel (Imdur Ext Rel), 120 MG PO QAM Lisinopril (Lisinopril), 20 MG PO BID Metoprolol Succ (Toprol Xl) (Toprol-Xl ), 100 MG PO DAILY Multivitamin (Multivitamin), 1 TABLET PO DAILY Nitroglycerin (Nitrostat), 0.4 MG UT PRN Rosuvastatin Calcium (Crestor), 20 MG PO DAILY Warfarin Sod (Jantoven), 5 MG PO WK Warfarin Sod (Jantoven), 2.5 MG PO 6XWK Scheduled PRN Tramadol HCl (Tramadol HCl), 50 MG PO Q6H PRN for Pain Review of Systems See above for pertinent positives & negatives. A total of 10 systems reviewed and were otherwise negative. Physical Exam Vital Signs Date Time Temp Pulse Resp B/P Pulse Ox O2 Delivery O2 Flow Rate FiO2 10/10/16 13:04 64 10/10/16 12:11 95 Room Air 10/10/16 12:07 64 18 134/82 95 10/10/16 10:22 68 18 138/83 96 Room Air 10/10/16 09:07 71 10/10/16 08:58 96 Room Air 10/10/16 08:54 36.6 67 20 169/96 94 Room Air General Appearance: + pertinent finding (WD/WN 71 year old male lying in bed in NAD with at bedside ) Head: normocephalic, atraumatic Eyes: PERRL, EOMI, sclerae normal ENT: hearing grossly normal, pharynx normal Neck: supple, no JVD, trachea midline Respiratory/Chest: chest non-tender, lungs clear, normal breath sounds, no respiratory distress, no accessory muscle use Cardiovascular: regular rate, rhythm, no edema, no gallop, no JVD, no murmur, normal peripheral pulses Abdomen/GI: normal bowel sounds, non tender, soft Back: normal inspection, no muscle spasm Extremities/Musculoskelatal: no calf tenderness, normal capillary refill, no pedal edema, + pertinent finding (Shoulders/neck nontender to palpation, no muscule spasms, no bruising/rashes/edema ) Neurologic/Psych: grease man II-XII nml as tested, no motor/sensory deficits, alert, normal mood/affect, oriented x 3, + pertinent finding (Finger to nose intact, pronator drift negative, no focal deficits noted ) Skin: normal color, warm/dry, no rash Lymphatic: no adenopathy Diagnostics Laboratory Results Results Past 24 Hours Test 10/10/16 09:00 10/10/16 09:01 10/10/16 12:59 Range/Units White Blood Count 5.21 4.8-10.8 K/uL Red Blood Count 4.98 4.7-6.1 M/uL Hemoglobin 15.7 14.0-18.0 g/dL Hematocrit 44.0 42-52 % Mean Corpuscular Volume 88.4 80-100 fL Mean Corpuscular Hemoglobin 31.5 25-34 pg Mean Corpuscular Hemoglobin Concent 35.7 32-36 g/dl Platelet Count 191 130-400 K/uL Mean Platelet Volume 10.5 7.4-10.4 fL Neutrophils (%) (Auto) 66.6 % Lymphocytes (%) (Auto) 20.0 % Monocytes (%) (Auto) 8.4 % Eosinophils (%) (Auto) 4.4 % Basophils (%) (Auto) 0.2 % Neutrophils # (Auto) 3.47 1.4-6.5 K/uL Lymphocytes # (Auto) 1.04 1.2-3.4 K/uL Monocytes # (Auto) 0.44 0.11-0.59 K/uL Eosinophils # (Auto) 0.23 0-0.5 K/uL Basophils # (Auto) 0.01 0-0.2 K/uL RDW Standard Deviation 39.2 36.4-46.3 fL RDW Coefficient of Variation 12.3 11.5-14.5 % Immature Granulocyte % (Auto) 0.4 % Immature Granulocyte # (Auto) 0.02 0.00-0.02 K/uL Prothrombin Time 53.5 9.0-12.0 SECONDS Prothromb Time International Ratio 4.7 0.9-1.1 Sodium Level 144 136-145 mmol/L Potassium Level 3.8 3.5-5.1 mmol/L Chloride Level 111 98-107 mmol/L Carbon Dioxide Level 20 21-32 mmol/L Anion Gap 13.0 3-11 mmol/L Blood Urea Nitrogen 9 7-18 mg/dl Creatinine 1.00 0.60-1.40 mg/dl Est Creatinine Clear Calc Drug Dose 63.5 ml/min Estimated GFR () 86.8 Estimated GFR (Non- 74.9 BUN/Creatinine Ratio 9.3 10-20 Random Glucose 107 70-99 mg/dl Calcium Level 9.5 8.5-10.1 mg/dl Total Bilirubin 0.6 0.2-1 mg/dl Aspartate Amino Transf (AST/SGOT) 16 15-37 U/L Alanine Aminotransferase (ALT/SGPT) 21 12-78 U/L Alkaline Phosphatase 55 45-117 U/L Total Protein 7.7 6.4-8.2 gm/dl Albumin 4.2 3.4-5.0 gm/dl Globulin 3.5 2.5-4.0 gm/dl Albumin/Globulin Ratio 1.2 0.9-2 Bedside Glucose 101 70-99 mg/dl Diagnostic Radiology CT HEAD Per radiologist read: Impression: Chronic and age-related change. No acute process. EKG NSR 65 BPM, QTc 401 Impression Assessment and Plan 71 year old male presents to the ED complaining of severe headache starting in shoulders. Was admitted last week and seen by neurology. MRA neck, MRI, MRV and CT head negative for acute processes INTRACTABLE HEADACHE -Observation in tele -? causes consider pheochromocytoma, rotator cuff pathology, musculoskeletal issues and other causes -CT head negative today -Check MRI left shouldered -24 hour Metanephrine urine -check TSH, CRP, ESR -Stop Fioricet - ? if this is causing tremor -Toradol prn pain -Lidoderm patch -warm compress -neurology and pain management consults pending for further input. LEFT SHOULDER PAIN -? rotator cuff injury -? source of patients symptoms -MRI shoulder pending -may need ortho consult depending on findings GENERALIZED WEAKNESS/TREMOR/AMBULATORY DYSFUNCTION -stop Fioricet -? possible side effect -PT/OT eval HISTORY OF LEFT RENAL AND SPLENIC INFARCT -INR 4.7 -hold Coumadin for now -follow INR CAD -Stable, denies chest pain -EKG nonischemic -Continue ASA, statin, BB, Imdur, ACEI -monitor in tele HTN -stable -continue Norvasc, BB, Lisinopril Imdur -monitor in tele CHRONIC DIASTOLIC CHF -appears euvolemic -history of preserved EF, grade 1 diastolic dysfunction H/O PAROXYSMAL AFIB -in NSR -continue BB -Coumadin on hold - INR 4.7 DVT PROPHYLAXIS: INR 4.7 resume Coumadin when INR therapeutic CODE STATUS:FULL CODE DISPO: observation pending further workup Patient seen in collaboration with Dr. Foss Advanced Directives Existing Living Will: Yes Existing Power of Entry Specialist: Yes VTE Prophylaxis VTE Risk Assessment Done? Y/N: Yes Risk Level: Moderate
--- NOTE | 2016-10-10 13:31 | Progress Note ---
Progress Note ATTENDING ADDENDUM care coordinated with NORAH Jordan please refer to her notes for full details, I agree with her notes patient seen and examined, records reviewed by myself as well on exam, patient seen resting in bed, somewhat weak, but alert states pain starts from the left shoulder moves to the neck and right shoulder, associated with generalized headache no blurred vision, dizziness, other focal neuro deficits no other symptoms VS noted and reviewed oriented x 3, not in distress, speaks in sentences with no effort nor accessory muscle use normal rate, regular rhythm, no murmurs clear breath sounds bilaterally non distended, soft, nontender Left shoulder: no swelling, has mild warmth and mild tenderness on the scapular region, poor ROM due to pain Posterior Neck: no swelling, good ROM Right Shoulder: essentially normal no bipedal edema, erythema, warmth no gross neuro deficits INR 4.7 CT head: no acute process ASSESSMENT/PLAN> LEFT SHOULDER PAIN RADIATING TO NECK AND HEAD R/O ROTATOR CUFF TEAR symptoms preceded with lifting heavy sack of corn check MRI left shoulder d/c Fioricet, start Toradol and Tramadol, Lidoderm patch, Warm compress will re-consult neurology get Pain Management opinion PT, OT CHRONIC COUMADIN USE FOR AORTIC PLAQUES - INR 4.7 hold coumadin check INR daily other diagnoses and plan of care as per NORAH Jordan's notes Bakari Foss MD
[2016-10-10] MEDS ORDERED: KETOROLAC TROMETHAMINE 15 MG/ML VIAL IV. STA (13:32)
[2016-10-10] MEDS: SODIUM CHLORIDE 0.9% 1000ML 1,000 ML IV SCH (14:16)
[2016-10-10 14:24] VITALS: BP 154/80; PULSE 61; TEMP 36.5; O2SAT 95
[2016-10-10 15:00] VITALS: BP 121/64; PULSE 61; TEMP 36.7; O2SAT 94
--- NOTE | 2016-10-10 15:02 | EMERGENCY ROOM VISIT NOTE ---
History Report prepared by Isaias: Leon Lozano Under the Supervision of: Dr. Jordan Varela D.O. First contact with patient: 10:03 Chief Complaint: OTHER COMPLAINT Stated Complaint: UNABLE TO AMBULATE History of Present Illness The patient is a 71 year old male who presents to the Emergency Room with complaints of persistent bilateral shoulder pain since 44 this morning. The pain is also felt in his neck. The pain is described as a pounding sensation, and is rated 7/10 in severity. The patient experiences the same pain intermittently, which became uncontrollable this morning. He also intermittently experiences pounding ear pain. The patient was sitting down this morning when the pain came on suddenly. The patient could not ambulate earlier secondary to pain. He also experienced tremors of his arms, which is not typical for him. The patient hasn't had the pain like this since the last time he was in the ED. The patient had all of his medications this morning prior to the onset of his pain. He is no longer on Prednisone or muscle relaxers. Source of History: patient Onset: 644 this morning Position: shoulder (bilateral) Symptom Intensity: 7/10 Quality: other (pounding) Timing: other (persistent) Associated Symptoms: + neck pain Review of Systems See HPI for pertinent positives & negatives. A total of 10 systems reviewed and were otherwise negative. 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 Surgical Problems: (1) History of total right hip replacement Family History Diabetes mellitus FATHER Hypertension MOTHER Stroke MOTHER Social History Smoking Status: Former Smoker Alcohol Use: occasionally Drug Use: none Marital Status: Housing Status: lives with family Current/Historical Medications Scheduled Acetamin/Butalbital/Caffeine (Fioricet), 1 TAB PO Q4 Alendronate Sodium (Alendronate Sodium), 70 MG PO 1XWK Amlodipine Besylate (Amlodipine Besylate), 10 MG PO DAILY Aspirin (Aspir-81), 81 MG PO DAILY Ergocalciferol (Vitamin D), 50,000 UNITS PO 1XWK Esomeprazole Magnesium (Nexium), 40 MG PO DAILY Isosorbide Mononitrate Ext Rel (Imdur Ext Rel), 120 MG PO QAM Lisinopril (Lisinopril), 20 MG PO BID Metoprolol Succ (Toprol Xl) (Toprol-Xl ), 100 MG PO DAILY Multivitamin (Multivitamin), 1 TABLET PO DAILY Nitroglycerin (Nitrostat), 0.4 MG UT PRN Rosuvastatin Calcium (Crestor), 20 MG PO DAILY Warfarin Sod (Jantoven), 5 MG PO WK Warfarin Sod (Jantoven), 2.5 MG PO 6XWK Allergies Coded Allergies: No Known Allergies (Verified , 10/06/16) Physical Exam Vital Signs Date Time Temp Pulse Resp B/P Pulse Ox O2 Delivery O2 Flow Rate FiO2 10/10/16 12:11 95 Room Air 10/10/16 12:07 64 18 134/82 95 10/10/16 10:22 68 18 138/83 96 Room Air 10/10/16 09:07 71 10/10/16 08:58 96 Room Air 10/10/16 08:54 36.6 67 20 169/96 94 Room Air Physical Exam VITAL SIGNS: were reviewed as above. GENERAL:Non-toxic in appearance. SKIN: Warm dry and pink. HEAD: Normocephalic and atraumatic. OROPHARYNX: Is clear and moist NECK: Supple without lymphadenopathy or meningismus. LUNGS: clear. HEART: Regular rate and rhythm. ABDOMEN: Soft and nontender. EXTREMITIES: Warm and well perfused. NEUROLOGICALLY: Awake alert and oriented without focal deficit. Cranial nerves 2 -12 are intact. There is no pronator drift. Cerebellar testing is within normal limits. There is no nystagmus. There is no facial droop. Speech is clear. Vision is grossly normal. MUSCULOSKELETAL: Good muscle tone. No evidence of trauma. Medical Decision & Procedures ER Provider Diagnostic Interpretation: CT results as stated below per my review and radiologist interpretation: HEAD CT NONCONTRAST CT DOSE: 537.48 mGy.cm HISTORY: Mental status change headache TECHNIQUE: Multiaxial CT images of the head were performed without the use of intravenous contrast. Comparison: 10/06/2016 Findings: The paranasal sinuses and mastoid air cells are clear. Chronic small vessel change with mild age-related change. No acute intracranial abnormality. No midline shift. No interval change from the prior exam. Impression: Chronic and age-related change. No acute process. Electronically signed by: Noel Youngblood M.D. 10/10/2016 11:07 AM Dictated Date/Time: 10/10/2016 11:05 AM Laboratory Results 10/10/16 09:00 Red Blood Count 4.98, Mean Corpuscular Volume 88.4, Mean Corpuscular Hemoglobin 31.5, Mean Corpuscular Hemoglobin Concent 35.7, Mean Platelet Volume 10.5, Neutrophils (%) (Auto) 66.6, Lymphocytes (%) (Auto) 20.0, Monocytes (%) (Auto) 8.4, Eosinophils (%) (Auto) 4.4, Basophils (%) (Auto) 0.2, Neutrophils # (Auto) 3.47, Lymphocytes # (Auto) 1.04, Monocytes # (Auto) 0.44, Eosinophils # (Auto) 0.23, Basophils # (Auto) 0.01 10/10/16 09:00 Test 10/10/16 09:00 10/10/16 09:01 White Blood Count 5.21 K/uL (4.8-10.8) Red Blood Count 4.98 M/uL (4.7-6.1) Hemoglobin 15.7 g/dL (14.0-18.0) Hematocrit 44.0 % (42-52) Mean Corpuscular Volume 88.4 fL (80-100) Mean Corpuscular Hemoglobin 31.5 pg (25-34) Mean Corpuscular Hemoglobin Concent 35.7 g/dl (32-36) Platelet Count 191 K/uL (130-400) Mean Platelet Volume 10.5 fL (7.4-10.4) Neutrophils (%) (Auto) 66.6 % Lymphocytes (%) (Auto) 20.0 % Monocytes (%) (Auto) 8.4 % Eosinophils (%) (Auto) 4.4 % Basophils (%) (Auto) 0.2 % Neutrophils # (Auto) 3.47 K/uL (1.4-6.5) Lymphocytes # (Auto) 1.04 K/uL (1.2-3.4) Monocytes # (Auto) 0.44 K/uL (0.11-0.59) Eosinophils # (Auto) 0.23 K/uL (0-0.5) Basophils # (Auto) 0.01 K/uL (0-0.2) RDW Standard Deviation 39.2 fL (36.4-46.3) RDW Coefficient of Variation 12.3 % (11.5-14.5) Immature Granulocyte % (Auto) 0.4 % Immature Granulocyte # (Auto) 0.02 K/uL (0.00-0.02) Erythrocyte Sedimentation Rate 7 mm/hr (0-14) Prothrombin Time 53.5 SECONDS (9.0-12.0) Prothromb Time International Ratio 4.7 (0.9-1.1) Anion Gap 13.0 mmol/L (3-11) Est Creatinine Clear Calc Drug Dose 63.5 ml/min Estimated GFR () 86.8 Estimated GFR (Non- 74.9 BUN/Creatinine Ratio 9.3 (10-20) Calcium Level 9.5 mg/dl (8.5-10.1) Total Bilirubin 0.6 mg/dl (0.2-1) Aspartate Amino Transf (AST/SGOT) 16 U/L (15-37) Alanine Aminotransferase (ALT/SGPT) 21 U/L (12-78) Alkaline Phosphatase 55 U/L (45-117) C-Reactive Protein < 0.29 mg/dl (0-0.29) Total Protein 7.7 gm/dl (6.4-8.2) Albumin 4.2 gm/dl (3.4-5.0) Globulin 3.5 gm/dl (2.5-4.0) Albumin/Globulin Ratio 1.2 (0.9-2) Thyroid Stimulating Hormone (TSH) 2.110 uIu/ml (0.300-4.500) Bedside Glucose 101 mg/dl (70-99) Laboratory results as stated above per my review. ECG Indication: back/shoulder pain Rate (beats per minute): 65 Rhythm: normal sinus Findings: no acute ischemic change, no ectopy ED Course 1000: Previous medical records were reviewed. The patient was evaluated in room A10. A complete history and physical examination was performed. 1155: Reassessed the patient. Discussed everything with him and the . He verbalized understanding and agreement. 1159: Discussed the case with Dr. Foss, [facility]. The patient will be evaluated. Medical Decision Differential includes: Acute intracranial bleed, trauma, meningitis, encephalitis, increased intracranial pressure, mass or mass effect, facial or dental infection, temporal arteritis, CVA, TIA, acute hypertensive emergency, sinusitis, carbon monoxide exposure. This is a 71-year-old male who presents to the ED with a chief complaint of generalized weakness, headache as well as pulsatile your pain. The patient was admitted to the hospital in October 04 and evaluated by neurology. He had multiple studies at that time. He was seen by myself on October 06 and returned again today October 10 for the same symptoms. He has had multiple testing including MRIs of the brain and neck and CAT scans of the head as well as CAT scan of the abdomen. Multiple blood work did not show a cause for the patient's symptoms. The patient's physical exam and vital signs were unremarkable. Neuro exam was normal. EKG showed normal sinus rhythm. CT scan of his brain today was negative for acute disease. CBC is normal. INR is 4.7. Complete metabolic panel was unremarkable. Because the patient's ongoing symptoms and no clear cause, he will be evaluated by the hospitalist for observation. Consults Time Called: 1150 [facility]ing [facility] Return[facility] Call: [phone]: [facility] the [facility] The patient will be evaluated. Impression Primary Impression: Persistent headaches Additional Impression: Weakness Scribe Attestation The scribe's documentation has been prepared under my direction and personally reviewed by me in its entirety. I confirm that the note above accurately reflects all work, treatment, procedures, and medical decision making performed by me. Departure Information Dispostion Being Evaluated By Hospitalist Referrals Mario Mosquera MD (PCP) Patient Instructions My [facility] Problem Qualifiers
--- NOTE | 2016-10-10 15:48 | Neurology Consultation ---
Neurology Consultation Date of Consultation: Oct 10, 2016. Attending Physician: Antwon Wang MD Primary Care Physician: Mario Mosquera MD Reason for Consultation: gait dysfunction and headache History of Present Illness Source: patient, spouse Andrew is a 71 year old with a PMH of left renal and splenic infarcts, severe arthrosclerotic plaque in aortic arch and descending aorta, on Coumadin, CAD, diastolic CHF, chart history of PAF, HTN, dyslipidemia, carotid artery disease. Was seen at [facility] after he had an episode of severe [place] getting out of the car to open the gate and had some head pressure and felt his muscles were weak. He was taken to [facility] and evaluated on October 06 discharged on the and then has returned twice for head pain. He was discharged on Fioricet. He went home and took a shower feed the dogs and sat down in his recliner and the pain started in his neck and then went up to his head and he could hear his heart beat in his ears and then he felt like his head was going to explode. His is beside and states his arms and legs were shaking but there was no LOC, biting tongue or loss of bowel or bladder. He was brought back to the ED by EMS because he couldn't ambulate because of the pain. denies CP, SOB, abdominal pain, weakness, numbness tingling, +neck and headache with grinding in his neck with movement. Past Medical/Surgical History Medical Problems: (1) Persistent headaches Status: Acute (2) Precordial chest pain Status: Acute (3) Sigmoid diverticulitis Status: Acute (4) Weakness Status: Acute Social History Smoking Status: Former smoker Alcohol Use: none Drug Use: none Marital Status: Housing Status: lives with family Allergies Coded Allergies: No Known Allergies (Verified , 10/06/16) Current Inpatient Medications Current Inpatient Medications Medications (Trade) Dose Ordered Sig/Eliud Route Start Time Stop Time Status Last Admin Dose Admin Acetaminophen (Tylenol Tab) 650 mg Q4H PRN PO 10/10/16 13:00 11/09/16 12:59 Ondansetron HCl (Zofran Inj) 4 mg Q6H PRN IV 10/10/16 13:00 11/09/16 12:59 Nitroglycerin 0.4 mg 0.4 mg UD PRN SL 10/10/16 13:00 11/09/16 12:59 Sodium Chloride (Nss 1000ml) 1,000 ml @ 80 mls/hr [id number] IV 10/10/16 13:00 11/09/16 12:59 10/10/16 14:16 80 MLS/HR Aspirin (Ecotrin Tab) 81 mg DAILY PO 10/11/16 09:00 11/10/16 08:59 Isosorbide Mononitrate (Imdur Ext Rel Tab) 120 mg QAM PO 10/11/16 09:00 11/10/16 08:59 Lisinopril (Zestril Tab) 20 mg BID PO 10/10/16 21:00 11/09/16 20:59 Metoprolol Succinate (Toprol Xl Tab) 100 mg DAILY PO 10/11/16 09:00 11/10/16 08:59 Multivitamins (Multivitamin Tab) 1 tab DAILY PO 10/11/16 09:00 11/10/16 08:59 Rosuvastatin Calcium (Crestor Tab) 20 mg DAILY PO 10/11/16 09:00 11/10/16 08:59 Amlodipine Besylate (Norvasc Tab) 10 mg DAILY PO 10/11/16 09:00 11/10/16 08:59 Pantoprazole Sodium (Protonix Tab) 40 mg DAILY PO 10/11/16 09:00 11/10/16 08:59 Miscellaneous (Iv Fluids Completed) 1 ea PRN PRN N/A 10/10/16 13:30 10/10/17 13:29 Lidocaine (Lidoderm Patch 5%) 1 patch QAM TD 10/11/16 09:00 11/10/16 08:59 Miscellaneous (Remove Lidoderm Patch) 1 ea DAILY@21 N/A 10/10/16 21:00 11/09/16 20:59 Tramadol HCl (Ultram Tab) 50 mg Q6H PRN PO 10/10/16 13:30 11/09/16 13:29 Ketorolac Tromethamine (Toradol Inj) 15 mg Q6H PRN IV. 10/10/16 19:00 10/15/16 18:59 Physical Exam Vital Signs (Past 24 Hrs): Date Time Temp Pulse Resp B/P Pulse Ox O2 Delivery O2 Flow Rate FiO2 10/10/16 15:00 36.7 61 17 121/64 94 Room Air 10/10/16 14:24 36.5 61 17 154/80 95 Room Air 10/10/16 13:07 64 18 158/89 95 10/10/16 13:04 64 10/10/16 12:11 95 Room Air 10/10/16 12:07 64 18 134/82 95 10/10/16 10:22 68 18 138/83 96 Room Air 10/10/16 09:07 71 10/10/16 08:58 96 Room Air 10/10/16 08:54 36.6 67 20 169/96 94 Room Air Physical Exam: Constitutional: appearance nourished, healthy and normal Ears, Nose, Mouth and Throat: mucous membranes moist, no injection and skin normal, eyes normal Cardiovascular: normal S-1 and S-2 and regular rate and rhythm Respiratory: clear to auscultation (CTA) and no rales, rhonchi or wheeze Musculoskeletal: no peripheral edema Skin: no stigmata of neurocutaneous disease noted and normal and intact Eyes: extraocular muscles intact (EOMI) and pupils equal, round and reactive to light (PERRL), miotic NEUROLOGIC EXAMINATION: Mental status: Alert and interactive Oriented to full date and location Oriented to person Speech fluent with no evidence of aphasia Cranial Nerves smile symmetric, eye brow raise symmetric, tongue midline Reflexes: Deep tendon reflexes were symmetrical and graded 2/5. Plantar responses were flexor. Sensory: no sensory deficits with light touch Coordination: finger to nose with no bi pass or tremor Gait/Stance: sitting in bed. Motor: Negative for pronator drift of out stretched arms with eyes closed. Strength: Normal - biceps triceps hand patient services assistant bilaterally 5/5, hip flex plantar flex ext 5/ 5 bilaterally Laboratory Results Past 24 Hours: 10/10/16 09:00 Red Blood Count 4.98, Mean Corpuscular Volume 88.4, Mean Corpuscular Hemoglobin 31.5, Mean Corpuscular Hemoglobin Concent 35.7, Mean Platelet Volume 10.5, Neutrophils (%) (Auto) 66.6, Lymphocytes (%) (Auto) 20.0, Monocytes (%) (Auto) 8.4, Eosinophils (%) (Auto) 4.4, Basophils (%) (Auto) 0.2, Neutrophils # (Auto) 3.47, Lymphocytes # (Auto) 1.04, Monocytes # (Auto) 0.44, Eosinophils # (Auto) 0.23, Basophils # (Auto) 0.01 10/10/16 09:00 Test 10/10/16 09:00 10/10/16 09:01 White Blood Count 5.21 K/uL (4.8-10.8) Red Blood Count 4.98 M/uL (4.7-6.1) Hemoglobin 15.7 g/dL (14.0-18.0) Hematocrit 44.0 % (42-52) Mean Corpuscular Volume 88.4 fL (80-100) Mean Corpuscular Hemoglobin 31.5 pg (25-34) Mean Corpuscular Hemoglobin Concent 35.7 g/dl (32-36) Platelet Count 191 K/uL (130-400) Mean Platelet Volume 10.5 fL (7.4-10.4) Neutrophils (%) (Auto) 66.6 % Lymphocytes (%) (Auto) 20.0 % Monocytes (%) (Auto) 8.4 % Eosinophils (%) (Auto) 4.4 % Basophils (%) (Auto) 0.2 % Neutrophils # (Auto) 3.47 K/uL (1.4-6.5) Lymphocytes # (Auto) 1.04 K/uL (1.2-3.4) Monocytes # (Auto) 0.44 K/uL (0.11-0.59) Eosinophils # (Auto) 0.23 K/uL (0-0.5) Basophils # (Auto) 0.01 K/uL (0-0.2) RDW Standard Deviation 39.2 fL (36.4-46.3) RDW Coefficient of Variation 12.3 % (11.5-14.5) Immature Granulocyte % (Auto) 0.4 % Immature Granulocyte # (Auto) 0.02 K/uL (0.00-0.02) Erythrocyte Sedimentation Rate 7 mm/hr (0-14) Prothrombin Time 53.5 SECONDS (9.0-12.0) Prothromb Time International Ratio 4.7 (0.9-1.1) Anion Gap 13.0 mmol/L (3-11) Est Creatinine Clear Calc Drug Dose 63.5 ml/min Estimated GFR () 86.8 Estimated GFR (Non- 74.9 BUN/Creatinine Ratio 9.3 (10-20) Calcium Level 9.5 mg/dl (8.5-10.1) Total Bilirubin 0.6 mg/dl (0.2-1) Aspartate Amino Transf (AST/SGOT) 16 U/L (15-37) Alanine Aminotransferase (ALT/SGPT) 21 U/L (12-78) Alkaline Phosphatase 55 U/L (45-117) C-Reactive Protein < 0.29 mg/dl (0-0.29) Total Protein 7.7 gm/dl (6.4-8.2) Albumin 4.2 gm/dl (3.4-5.0) Globulin 3.5 gm/dl (2.5-4.0) Albumin/Globulin Ratio 1.2 (0.9-2) Thyroid Stimulating Hormone (TSH) 2.110 uIu/ml (0.300-4.500) Bedside Glucose 101 mg/dl (70-99) Imaging CT head-Findings: The paranasal sinuses and mastoid air cells are clear. Chronic small vessel change with mild age-related change. No acute intracranial abnormality. No midline shift. No interval change from the prior exam. Impression 71 year old with neck pain, headache Plan 1. currently MRI of left shoulder pending 2. PT/OT for discharge needs 3. coumadin on hold - 4.7 supra therapeutic as previous admission 4. blood pressure control 5. TTE- from admission in July- * Left ventricular systolic function is normal. * Ejection Fraction = 60-65%. * No thrombus is detected in the left atrial appendage. * The interatrial septum is intact with no evidence for an atrial septal defect. * Severe atherosclerotic plaque(s) in the aortic arch. * Severe atherosclerotic plaque(s) in the descending aorta. 6. would not use fiorcet for headaches 7. further recommendations to follow I have seen and discussed above patient with Dr Jailene Jaramillo, neurology Pt seen briefly as he was going to MRI. He is awake alert and in no distress .hx reviewed. REc check esr, will see pt tomorr, RAMONA Jaramillo MD
--- NOTE | 2016-10-10 18:38 | DIAGNOSTIC IMAGING REPORT ---
MRI LEFT SHOULDER NO CONTRAST CLINICAL HISTORY: Severe left shoulder pain. Possible rotator cuff tear. COMPARISON STUDY: No previous studies for comparison. FINDINGS: The patient was imaged in the sagittal coronal and axial planes. The bicipital tendon appears intact. There is no subluxation. There is an area of marrow edema involving the subchondral portion of the humeral head measuring 18 mm. While nonspecific, a bone infarct is favored. There is minor supraspinatus tendinopathy. There is no evidence of a full-thickness rotator cuff tear. There is a tiny partial thickness articular surface tear. There is no tendinous retraction. IMPRESSION: 1. Tiny articular surface partial thickness rotator cuff tear. No evidence of tendinous retraction 2. 18 mm focus of subchondral marrow edema involving the humeral head. Although the appearance is nonspecific, a bone infarct is favored. Electronically signed by: Nacho Sandoval M.D. 10/10/2016 6:36 PM Dictated Date/Time: 10/10/2016 6:30 PM
[2016-10-10 20:00] VITALS: BP 124/80; PULSE 60; TEMP 37; O2SAT 94
[2016-10-10] MEDS: LISINOPRIL 20 MG TAB PO SCH (20:54)
[2016-10-10 23:16] VITALS: BP 132/66; PULSE 54; TEMP 36.9; O2SAT 95
[2016-10-11] VITALS (12 sets, daily range): BP systolic 113–145; BP diastolic 50–74; PULSE 51–57; TEMP 36.4–36.9; O2SAT 93–97
[2016-10-11 06:05] LABS: HEMATOCRIT 39.5 % (42-52); MEAN CELL VOLUME 91.2 fL (80-100); MEAN CORPUSCULAR HEMOGLOBIN 31.2 pg (25-34); MEAN CORPUSCULAR HGB CONC 34.2 g/dl (32-36); MEAN PLATELET VOLUME 10.3 fL (7.4-10.4); PLATELET COUNT 151 K/uL (130-400); RED BLOOD COUNT 4.33 M/uL (4.7-6.1); WHITE BLOOD COUNT 3.78 K/uL (4.8-10.8)
[2016-10-11 06:11] LABS: INR 3.1 (0.9-1.1); PROTHROMBIN TIME (PATIENT) 34.7 SECONDS (9.0-12.0)
[2016-10-11 06:40] LABS: CALCIUM 8.4 mg/dl (8.5-10.1); CREATININE 0.99 mg/dl (0.60-1.40); MAGNESIUM 2.2 mg/dl (1.8-2.4)
[2016-10-11] MEDS: SODIUM CHLORIDE 0.9% 1000ML 1,000 ML IV SCH ×2 (08:20→20:35)
[2016-10-11] MEDS: MULTIVITAMIN TAB PO SCH (08:21)
[2016-10-11] MEDS: LISINOPRIL 20 MG TAB PO SCH ×2 (08:21→21:03)
[2016-10-11] MEDS: ROSUVASTATIN CALCIUM 20 MG TAB PO SCH (08:21)
[2016-10-11] MEDS: AMLODIPINE BESYLATE 5 MG TAB PO SCH (08:22)
[2016-10-11] MEDS: ASPIRIN 81 MG ECTAB PO SCH (08:22)
[2016-10-11] MEDS: ISOSORBIDE MONONITRATE 60 MG TABCR PO SCH (08:22)
[2016-10-11] MEDS: PANTOprazole SOD 40 MG TAB PO SCH (08:23)
[2016-10-11] MEDS: METOPROLOL SUCC 50MG EXT REL TAB PO SCH (08:24)
[2016-10-11] MEDS: CYCLOBENZAPRINE HCL 5 MG TAB PO SCH ×2 (10:03→21:03)
[2016-10-11] MEDS: LIDODERM (LIDOCAINE) PATCH 5% TD SCH (10:03)
--- NOTE | 2016-10-11 10:07 | Pain Management Consultation ---
Pain Management Consultation Date of Consultation Oct 11, 2016. Reason for Consultation Intractable headaches History Mr. Reardon is a 71 year old white male that has been admitted to the Emergency Department for headaches. Patient states that the headaches are located in the bilateral occipital region and radiate frontally. Patient does report left shoulder/trapezius pain that will cause pain and worsening headache. He has previously been taking Fioricet for headaches which was previously effective. It is no longer effective and potentially causing a fine tremor so it was discontinued. Patient states that his pain may have been caused by lifting a heavy sac of corn or from hiking up mountains one day. He does report left shoulder pain. He does not have any migraine features such at photophobia, phonophobia, aura, nausea, or vomiting. He describes his head being blown up such as a grenade. Patient states that his pain is resolving and his current pain is 0.5/10. Patient denies any axial cervical pain, cervical radiculopathy , arm weakness, dizziness, constitutional complaints. Case discussed with Dr. 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 (9) Carotid stenosis (10) Dyslipidemia (11) History of total right hip replacement Social / Work History Smoking Status: Former smoker Smokeless Tobacco Use: No Alcohol Use: none Drug Use: none Marital Status: Housing Status: lives with significant other Occupation: retired Allergies Coded Allergies: No Known Allergies (Verified , 10/06/16) Medications Current Inpatient Medications Medications (Trade) Dose Ordered Sig/Eliud Route Start Time Stop Time Status Last Admin Dose Admin Acetaminophen (Tylenol Tab) 650 mg Q4H PRN PO 10/10/16 13:00 11/09/16 12:59 Ondansetron HCl (Zofran Inj) 4 mg Q6H PRN IV 10/10/16 13:00 11/09/16 12:59 Nitroglycerin 0.4 mg 0.4 mg UD PRN SL 10/10/16 13:00 11/09/16 12:59 Sodium Chloride (Nss 1000ml) 1,000 ml @ 80 mls/hr [id number] IV 10/10/16 13:00 11/09/16 12:59 10/11/16 08:20 80 MLS/HR Aspirin (Ecotrin Tab) 81 mg DAILY PO 10/11/16 09:00 11/10/16 08:59 10/11/16 08:22 81 MG Isosorbide Mononitrate (Imdur Ext Rel Tab) 120 mg QAM PO 10/11/16 09:00 11/10/16 08:59 10/11/16 08:22 120 MG Lisinopril (Zestril Tab) 20 mg BID PO 10/10/16 21:00 11/09/16 20:59 10/11/16 08:21 20 MG Metoprolol Succinate (Toprol Xl Tab) 100 mg DAILY PO 10/11/16 09:00 11/10/16 08:59 10/11/16 08:24 100 MG Multivitamins (Multivitamin Tab) 1 tab DAILY PO 10/11/16 09:00 11/10/16 08:59 10/11/16 08:21 1 TAB Rosuvastatin Calcium (Crestor Tab) 20 mg DAILY PO 10/11/16 09:00 11/10/16 08:59 10/11/16 08:21 20 MG Amlodipine Besylate (Norvasc Tab) 10 mg DAILY PO 10/11/16 09:00 11/10/16 08:59 10/11/16 08:22 10 MG Pantoprazole Sodium (Protonix Tab) 40 mg DAILY PO 10/11/16 09:00 11/10/16 08:59 10/11/16 08:23 40 MG Miscellaneous (Iv Fluids Completed) 1 ea PRN PRN N/A 10/10/16 13:30 10/10/17 13:29 Lidocaine (Lidoderm Patch 5%) 1 patch QAM TD 10/11/16 09:00 11/10/16 08:59 Miscellaneous (Remove Lidoderm Patch) 1 ea DAILY@21 N/A 10/10/16 21:00 11/09/16 20:59 10/10/16 21:00 1 EA Tramadol HCl (Ultram Tab) 50 mg Q6H PRN PO 10/10/16 13:30 11/09/16 13:29 Ketorolac Tromethamine (Toradol Inj) 15 mg Q6H PRN IV. 10/10/16 19:00 10/15/16 18:59 Cyclobenzaprine HCl (Flexeril Tab) 5 mg BID PO 10/11/16 09:45 11/10/16 09:44 Review of Systems Denies any constitutional, cardiac, pulmonary, neurological, GI, , extremity, endocrine, neuro, ENT, dermatological, or musculoskeletal complaints other than stated in HPI Physical Exam Height & Weight: Height 5 feet, 10.00 inches. Weight 63.500 (Kilograms) 139 (Pounds) Last Vital Signs Documentation Date Time Temp Pulse Resp B/P Pulse Ox O2 Delivery O2 Flow Rate FiO2 10/11/16 08:02 36.9 54 16 138/74 95 Room Air Exam: GENERAL: Mr. Reardon is a 71 y/o white male that appears his stated age. Speech and cognition is intact. Mood and affect is appropriate. Sitting quietly in the hospital bed, in no acute distress. HEAD: Normocephalic; atraumatic. There is no tenderness of the bilateral greater occipital, lesser occipital, auriculotemporal, supraorbital, supratrochlear nerves. EYES: Pupils are round, equal, and reactive to light; EOM intact. ENT: No external ear discharge or lesions. No rhinorrhea or epistaxis. No mucosal lesions. NECK: Full ROM; there is no midline or facet joint tenderness. There is a moderate muscle spasm of the left trapezius musculature without myoneural trigger points noted. CHEST: Regular chest respiration and excursion. EXTREMITIES: Using all extremities appropriately. NEURO: CN II-XII grossly intact with no focal deficits noted. AAO x 3. SKIN: No lesions, erythema, or rashes noted. Laboratory / Imaging Results Laboratory Results (Last CBC): 10/11/16 05:35 Imaging: Head CT 10/10/16: Chronic and age-related change. No acute process. Left Shoulder MRI 10/10/16: 1. Tiny articular surface partial thickness rotator cuff tear. No evidence of tendinous retraction 2. 18 mm focus of subchondral marrow edema involving the humeral head. Although the appearance is nonspecific, a bone infarct is favored. Assessment 1. Intractable headache 2. Likely left humeral head infarct 3. Myofascial pain Recommendations 1. Patient is not tender along the nerve along the scalp so he is not a candidate for nerve block injections. 2. Patient's headaches are likely caused by myofascial spasm of the left trapezius musculature. According to left shoulder MRI, a humeral head infarct is favored as the underlying cause of the left shoulder pain. 3. Will initiate the patient on Flexeril 5mg PO BID and I have urged the patient to apply heating pads, limit heavy lifting, and message. Patient is understanding. 4. Patient's pain has seemed to have resolved and he is anxious to be discharged to home. [employer] Voice Recognition This chart was completed in part utilizing [employer] Voice Recognition Software. Random word insertions, pronoun errors, and incomplete sentences are an occasional consequence of this system due to software limitations and ambient noise. Any questions or concerns about the content, text or information contained within the body of this dictation should be directly addressed to the provider for clarification.
[2016-10-11] MEDS ORDERED: ETHYL CHLORIDE AER SPR 100 ML CAN EXT SCH (10:15)
[2016-10-11] MEDS ORDERED: METHYLPREDNISOLONE ACETATE 80 MG/ML VIAL IA SCH (10:15)
[2016-10-11] MEDS ORDERED: BUPIVACAINE/EPINEPHRINE 0.5% MPF 1:200,000 30 ML VIAL INFIL SCH (10:15)
--- NOTE | 2016-10-11 12:38 | DIAGNOSTIC IMAGING REPORT ---
LEFT SHOULDER MIN 2 VIEWS ROUTINE CLINICAL HISTORY: Shoulder Pain pain COMPARISON: None. DISCUSSION: The bones and joint spaces appear intact. There is no evidence of fracture, dislocation or bony disease. There is no evidence for soft tissue swelling. IMPRESSION: Negative study. Electronically signed by: Noel Youngblood M.D. 10/11/2016 12:37 PM Dictated Date/Time: 10/11/2016 12:36 PM
--- NOTE | 2016-10-11 15:39 | ORTHOPEDIC CONSULTATION ---
DATE OF CONSULTATION: 10/11/2016 DATE OF CONSULTATION: 10/11/2016. CHIEF COMPLAINT: Headaches and left shoulder pain. HISTORY OF PRESENT ILLNESS: The patient is well known to me. 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 In any case he has had 3 admissions in last few days for recurrent and severe headaches. This is accompanied by pain in neck, trapezium and left shoulder. He has had an extensive workup including an MRI of the shoulder showed evidence of bony infarct or avascular necrosis similar to what he had with his hip. His rotator cuff appears benign. The patient complains of neck pain. He complains that he can hear grinding when he turns his head. PHYSICAL EXAMINATION: Reveals decreased range of motion of the left shoulder. Obvious irritability on extremes of range of motion. Neuro circulatory examination appears to be intact. X-RAYS: X-rays of the shoulder show evidence of avascular necrosis. MRI as above. IMPRESSION: I believe there may be a multifactorial source for this discomfort. At a minimum orthopedically he is developing some adhesive capsulitis of his left shoulder. I am not sure whether the avascular lesion really has anything to do with his current pain. He also may have a component of cervical degenerative disc disease and this could be contributing to his severe headaches. IMPRESSION: Left neck and shoulder pain of possible multifactorial etiology. PLAN: Will order a C-spine x-ray as a screen. If significantly involved consider an MRI. In addition, we will give him a subacromial injection in his left shoulder and institute physical therapy for adhesive capsulitis. If significance cervical pathology exists we will obtain spine consultation. Thank you for the consult.
--- NOTE | 2016-10-11 16:38 | DIAGNOSTIC IMAGING REPORT ---
CERVICAL SPINE 5 VIEWS CLINICAL HISTORY: Neck pain radiating to the shoulder. FINDINGS: AP, lateral, bilateral oblique, and odontoid views of the cervical spine are obtained. No prior studies are available for comparison at the time of dictation. The skeletal structures are osteopenic. There is no radiographic evidence of fracture or subluxation. Vertebral body height and alignment are maintained throughout the cervical spine. The spinolaminar line is preserved. The odontoid process and lateral masses appear intact on the open-mouth view. Small anterior osteophytes are seen from C4 through C7. The intervertebral disc spaces appear well-maintained. Bilateral neural foraminal stenosis is suggested on the oblique views at C4-C5 through C6-C7. The prevertebral soft tissues are normal as visualized. Imaged apical lung parenchyma appears clear. There is atherosclerotic calcification of the thoracic aorta and carotid bulbs. IMPRESSION: 1. No acute bony abnormalities seen involving the cervical spine. 2. Osteopenia and mild cervical spondylosis as detailed above. Dictated: 10/11/2016 3:53 PM Transcribed: 10/11/2016 4:37 PM [email or web address] Electronically signed by: Rebel Gonzales M.D. 10/12/2016 7:27 AM Dictated Date/Time: 10/11/2016 3:53 PM
--- NOTE | 2016-10-11 18:41 | Progress Note ---
Internal Med Progress Note Date of Service: Oct 11, 2016. Provider Documentation: SUBJECTIVE: has pain in the left shoulder. has neck pain and headache on and off afebrile no chest pain or sob OBJECTIVE: Vital Signs-as noted below Exam: General-alert and oriented ENT-normal hearing Neck-no neck masses Lungs-cta b/l no wheezing no crackles Heart-s1 and s2 heard regular rate and rhythm no murmurs Abdomen-soft bowel sounds present non tender no distension Extremities-no erythema no edema Neuro-alert and awake moves extremities Lab data as noted below. ASSESSMENT & PLAN: 71 year old male presents to the ED complaining of severe headache starting in shoulders. Was admitted last week and seen by neurology. MRA neck, MRI, MRV and CT head negative for acute processes INTRACTABLE HEADACHE Ct head negative appreciate neurology and pain management inputs seems better today LEFT SHOULDER PAIN MRI shows possible left humerus infarct appreciate ortho inputs. GENERALIZED WEAKNESS/TREMOR/AMBULATORY DYSFUNCTION stable now PT/OT eval HISTORY OF LEFT RENAL AND SPLENIC INFARCT INR on presentation 4.7 Holding Coumadin now INR 3.1 today CAD stable on ASA, statin, BB, Imdur, ACEI monitor in tele HTN stable on Norvasc, BB, Lisinopril Imdur monitor in tele CHRONIC DIASTOLIC CHF appears euvolemic stable H/O PAROXYSMAL AFIB in NSR on bb inr 3.1 DVT PROPHYLAXIS: INR therapeutic CODE STATUS:FULL CODE DISPO: to be determined Vital Signs: Date Time Temp Pulse Resp B/P Pulse Ox O2 Delivery O2 Flow Rate FiO2 10/11/16 16:00 97 Room Air 10/11/16 15:29 36.9 53 16 118/63 94 Room Air 10/11/16 11:47 95 Room Air 10/11/16 11:43 36.7 51 20 113/52 95 10/11/16 10:40 54 94 10/11/16 08:02 36.9 54 16 138/74 95 Room Air 10/11/16 08:00 96 Room Air 10/11/16 04:00 94 Room Air 10/11/16 03:51 36.4 55 16 145/67 94 Room Air 10/11/16 00:00 95 Room Air 10/10/16 23:16 36.9 54 18 132/66 95 Room Air 10/10/16 20:00 37.0 60 20 94 Room Air 10/10/16 20:00 94 Room Air 10/10/16 20:00 37.0 60 20 124/80 94 Room Air Lab Results: Results Past 24 Hours Test 10/11/16 05:25 10/11/16 05:35 Range/Units Sodium Level 145 136-145 mmol/L Potassium Level 4.0 3.5-5.1 mmol/L Chloride Level 110 98-107 mmol/L Carbon Dioxide Level 25 21-32 mmol/L Anion Gap 10.0 3-11 mmol/L Blood Urea Nitrogen 15 7-18 mg/dl Creatinine 0.99 0.60-1.40 mg/dl Est Creatinine Clear Calc Drug Dose 60.6 ml/min Estimated GFR () 87.8 Estimated GFR (Non- 75.8 BUN/Creatinine Ratio 15.0 10-20 Random Glucose 109 70-99 mg/dl Calcium Level 8.4 8.5-10.1 mg/dl Magnesium Level 2.2 1.8-2.4 mg/dl White Blood Count 3.78 4.8-10.8 K/uL Red Blood Count 4.33 4.7-6.1 M/uL Hemoglobin 13.5 14.0-18.0 g/dL Hematocrit 39.5 42-52 % Mean Corpuscular Volume 91.2 80-100 fL Mean Corpuscular Hemoglobin 31.2 25-34 pg Mean Corpuscular Hemoglobin Concent 34.2 32-36 g/dl RDW Standard Deviation 41.9 36.4-46.3 fL RDW Coefficient of Variation 12.5 11.5-14.5 % Platelet Count 151 130-400 K/uL Mean Platelet Volume 10.3 7.4-10.4 fL Prothrombin Time 34.7 9.0-12.0 SECONDS Prothromb Time International Ratio 3.1 0.9-1.1
--- NOTE | 2016-10-11 19:29 | Neurology Progress Notes ---
Neurology Progress Note Date of Service Oct 11, 2016. Quentin Morales is a 71 year old with a PMH of left renal and splenic infarcts, severe arthrosclerotic plaque in aortic arch and descending aorta, on Coumadin, CAD, diastolic CHF, chart history of PAF, HTN, dyslipidemia, carotid artery disease. Was seen at [facility] after he had an episode of severe headache and [place] getting out of the car to open the gate and had some head pressure and felt his muscles were weak. He was taken to [facility] and evaluated on October 06 discharged on the and then has returned twice for head pain. He was discharged on Fioricet. He went home and took a shower feed the dogs and sat down in his recliner and the pain started in his neck and then went up to his head and he could hear his heart beat in his ears and then he felt like his head was going to explode. His is beside and states his arms and legs were shaking but there was no LOC, biting tongue or loss of bowel or bladder. He was brought back to the ED by EMS because he couldn't ambulate because of the pain. Today he is being seen in the radiology department. He is currently waiting to have a xray of his shoulder. He states he does not currently have a headache and he is feeling much better today. denies CP, SOB, abdominal pain, N, V, one sided weakness, vision changes, Objective Date Time Temp Pulse Resp B/P Pulse Ox O2 Delivery O2 Flow Rate FiO2 10/11/16 19:08 36.6 57 16 114/50 93 Room Air 10/11/16 16:00 97 Room Air 10/11/16 15:29 36.9 53 16 118/63 94 Room Air 10/11/16 11:47 95 Room Air 10/11/16 11:43 36.7 51 20 113/52 95 10/11/16 10:40 54 94 10/11/16 08:02 36.9 54 16 138/74 95 Room Air 10/11/16 08:00 96 Room Air 10/11/16 04:00 94 Room Air 10/11/16 03:51 36.4 55 16 145/67 94 Room Air 10/11/16 00:00 95 Room Air 10/10/16 23:16 36.9 54 18 132/66 95 Room Air 10/10/16 20:00 37.0 60 20 94 Room Air 10/10/16 20:00 94 Room Air 10/10/16 20:00 37.0 60 20 124/80 94 Room Air Last 24 Hours Test 10/11/16 05:25 10/11/16 05:35 Sodium Level 145 mmol/L Potassium Level 4.0 mmol/L Chloride Level 110 mmol/L Carbon Dioxide Level 25 mmol/L Anion Gap 10.0 mmol/L Blood Urea Nitrogen 15 mg/dl Creatinine 0.99 mg/dl Est Creatinine Clear Calc Drug Dose 60.6 ml/min Estimated GFR () 87.8 Estimated GFR (Non- 75.8 BUN/Creatinine Ratio 15.0 Random Glucose 109 mg/dl Calcium Level 8.4 mg/dl Magnesium Level 2.2 mg/dl White Blood Count 3.78 K/uL Red Blood Count 4.33 M/uL Hemoglobin 13.5 g/dL Hematocrit 39.5 % Mean Corpuscular Volume 91.2 fL Mean Corpuscular Hemoglobin 31.2 pg Mean Corpuscular Hemoglobin Concent 34.2 g/dl RDW Standard Deviation 41.9 fL RDW Coefficient of Variation 12.5 % Platelet Count 151 K/uL Mean Platelet Volume 10.3 fL Prothrombin Time 34.7 SECONDS Prothromb Time International Ratio 3.1 Imaging: MRI shoulder- Tiny articular surface partial thickness rotator cuff tear. No evidence of tendinous retraction2. 18 mm focus of subchondral marrow edema involving the humeral head. Although the appearance is nonspecific, a bone infarct is favored. x ray right shoulderDISCUSSION: The bones and joint spaces appear intact. There is no evidence of fracture, dislocation or bony disease. There is no evidence for soft tissue swelling. xray c spine- No acute bony abnormalities seen involving the cervical spine. Osteopenia and mild cervical spondylosis as detailed above. Exam: Physical Exam: Constitutional appearance nourished, healthy and normal Ears, Nose, Mouth and Throat: mucous membranes moist, no injection and skin normal, eyes normal Cardiovascular: normal S-1 and S-2 and regular rate and rhythm Respiratory: clear to auscultation (CTA) and no rales, rhonchi or wheeze Musculoskeletal: no peripheral edema Skin: no stigmata of neurocutaneous disease noted and normal and intact Eyes: extraocular muscles intact (EOMI) and pupils equal, round and reactive to light (PERRL) NEUROLOGIC EXAMINATION: Mental status: Alert and interactive Oriented to full date and location Oriented to person Speech fluent with no evidence of aphasia Cranial Nerves smile eye brow raise symmetric, tongue midline Coordination: finger to nose without bipass or tremor Gait/Stance: sitting in wheelchair Strength: bicep triceps hand project management director 5/5 bilaterally hip flex 5/5 bilaterally Current Inpatient Medications Medications (Trade) Dose Ordered Sig/Eliud Route Start Time Stop Time Status Last Admin Dose Admin Acetaminophen (Tylenol Tab) 650 mg Q4H PRN PO 10/10/16 13:00 11/09/16 12:59 Ondansetron HCl (Zofran Inj) 4 mg Q6H PRN IV 10/10/16 13:00 11/09/16 12:59 Nitroglycerin 0.4 mg 0.4 mg UD PRN SL 10/10/16 13:00 11/09/16 12:59 Sodium Chloride (Nss 1000ml) 1,000 ml @ 80 mls/hr [id number] IV 10/10/16 13:00 11/09/16 12:59 10/11/16 08:20 80 MLS/HR Aspirin (Ecotrin Tab) 81 mg DAILY PO 10/11/16 09:00 11/10/16 08:59 10/11/16 08:22 81 MG Isosorbide Mononitrate (Imdur Ext Rel Tab) 120 mg QAM PO 10/11/16 09:00 11/10/16 08:59 10/11/16 08:22 120 MG Lisinopril (Zestril Tab) 20 mg BID PO 10/10/16 21:00 11/09/16 20:59 10/11/16 08:21 20 MG Metoprolol Succinate (Toprol Xl Tab) 100 mg DAILY PO 10/11/16 09:00 11/10/16 08:59 10/11/16 08:24 100 MG Multivitamins (Multivitamin Tab) 1 tab DAILY PO 10/11/16 09:00 11/10/16 08:59 10/11/16 08:21 1 TAB Rosuvastatin Calcium (Crestor Tab) 20 mg DAILY PO 10/11/16 09:00 11/10/16 08:59 10/11/16 08:21 20 MG Amlodipine Besylate (Norvasc Tab) 10 mg DAILY PO 10/11/16 09:00 11/10/16 08:59 10/11/16 08:22 10 MG Pantoprazole Sodium (Protonix Tab) 40 mg DAILY PO 10/11/16 09:00 11/10/16 08:59 10/11/16 08:23 40 MG Miscellaneous (Iv Fluids Completed) 1 ea PRN PRN N/A 10/10/16 13:30 10/10/17 13:29 Lidocaine (Lidoderm Patch 5%) 1 patch QAM TD 10/11/16 09:00 11/10/16 08:59 10/11/16 10:03 1 PATCH Miscellaneous (Remove Lidoderm Patch) 1 ea DAILY@21 N/A 10/10/16 21:00 11/09/16 20:59 10/10/16 21:00 1 EA Tramadol HCl (Ultram Tab) 50 mg Q6H PRN PO 10/10/16 13:30 11/09/16 13:29 Ketorolac Tromethamine (Toradol Inj) 15 mg Q6H PRN IV. 10/10/16 19:00 10/15/16 18:59 Cyclobenzaprine HCl (Flexeril Tab) 5 mg BID PO 10/11/16 09:45 11/10/16 09:44 10/11/16 10:03 5 MG Methylprednisolone Acetate (Depo-Medrol IM) 80 mg TODAY@1015 IA 10/11/16 10:15 10/11/16 23:59 Bupivacaine HCl/ Epinephrine Bitart (Sensorcaine/ Epinephrine 0.5% Mpf 1:200,000) 50 ml TODAY@1015 INFIL 10/11/16 10:15 10/11/16 23:59 Ethyl Chloride (Ethyl Chloride Aerosol) 1 ml TODAY@1015 EXT 10/11/16 10:15 10/11/16 23:59 Impression 71 year old with neck pain, headache Plan 1. currently MRI of left shoulder with possible a vascular necrosis 2. PT/OT for discharge needs 3. coumadin on hold - 4.7 supra therapeutic as previous admission 4. blood pressure control 5. TTE- from admission in July- * Left ventricular systolic function is normal. * Ejection Fraction = 60-65%. * No thrombus is detected in the left atrial appendage. * The interatrial septum is intact with no evidence for an atrial septal defect. * Severe atherosclerotic plaque(s) in the aortic arch. * Severe atherosclerotic plaque(s) in the descending aorta. 6. would not use fiorcet for headaches 7. orthopedics - subacromial injection in his left shoulder and institute physical therapy for adhesive capsulitis. planned 8. pain mgt -flexeril and heat recommended I have seen and discussed above patient with Dr Jailene Jaramillo, neurology Pt seen and examined. Headaches have been nonexertional but explosive. pt needs MRA heads, will follow with you, RAMONA Jaramillo MD
--- NOTE | 2016-10-11 23:02 | DIAGNOSTIC IMAGING REPORT ---
Brain MRA HISTORY: hx explosive headaches evaluate [place] TECHNIQUE: 3-D [id number] MRA of the brain was performed without contrast. COMPARISON STUDY: Head CT 10/10/2016. FINDINGS: Markedly hypoplastic distal right vertebral artery. The distal left vertebral artery and basilar artery are widely patent. There is also a markedly hypoplastic right P1 segment. The right MICA PATCHER is fed primarily through the right posterior communicating artery. No significant stenosis or occlusion within the bilateral keeper helper. The right intracranial internal carotid artery is patent. There is mild narrowing within the supraclinoid segment of the distal left ICA. No significant stenosis within the bilateral ACAs or MCAs. IMPRESSION: 1. Mild narrowing within the supraclinoid segment of the distal left ICA. 2. Hypoplastic distal right vertebral artery and a hypoplastic right P1 segment. 3. No evidence for occlusion within the [place]. Electronically signed by: Kenrick Ponce M.D. 10/11/2016 11:00 PM Dictated Date/Time: 10/11/2016 10:54 PM
--- NOTE | 2016-10-11 23:09 | DIAGNOSTIC IMAGING REPORT ---
CERVICAL SPINE MRI HISTORY: severe neck pain TECHNIQUE: Multiplanar multisequence MRI of the cervical spine was performed without the use of contrast. COMPARISON STUDY: Cervical spine radiograph 10/11/2016. FINDINGS: Mild exaggeration of the normal lordotic curvature. Alignment is intact. No fractures. Disc spaces are relatively preserved for age. Prevertebral soft tissues and the C1-C2 interval are intact. The cervical spinal cord demonstrates a normal signal intensity. C2-C3: No significant central canal or neural foraminal narrowing. C3-C4: Small broad-based posterior disc bulge without significant central canal or neural foraminal narrowing. C4-C5: Tiny broad-based posterior disc bulge without significant central canal or neural foraminal narrowing. C5-C6: Small broad-based posterior disc osteophyte complex without significant central canal narrowing. There is mild bilateral neural foraminal narrowing. C6-C7: Tiny broad-based posterior disc bulge without significant central canal narrowing. There is mild bilateral neural foraminal narrowing. C7-T1: No significant central canal or neural foraminal narrowing. IMPRESSION: 1. Mild degenerative changes within the cervical spine as described above. 2. No fracture or subluxation. Electronically signed by: Kenrick Ponce M.D. 10/11/2016 11:08 PM Dictated Date/Time: 10/11/2016 11:01 PM
[2016-10-12] VITALS: BP 133/65; PULSE 51; TEMP 36.5; O2SAT 98
[2016-10-12 04:00] VITALS: BP 149/72; PULSE 57; TEMP 36.6; O2SAT 97
[2016-10-12 07:25] VITALS: BP 152/74; PULSE 54; TEMP 36.5; O2SAT 92
[2016-10-12 09:13] LABS: INR 1.8 (0.9-1.1); PROTHROMBIN TIME (PATIENT) 20.1 SECONDS (9.0-12.0)
[2016-10-12] MEDS: LIDODERM (LIDOCAINE) PATCH 5% TD SCH (09:18)
[2016-10-12] MEDS: ROSUVASTATIN CALCIUM 20 MG TAB PO SCH (09:18)
[2016-10-12] MEDS: PANTOprazole SOD 40 MG TAB PO SCH (09:18)
[2016-10-12] MEDS: MULTIVITAMIN TAB PO SCH (09:18)
[2016-10-12] MEDS: ASPIRIN 81 MG ECTAB PO SCH (09:19)
[2016-10-12] MEDS: ISOSORBIDE MONONITRATE 60 MG TABCR PO SCH (09:19)
[2016-10-12] MEDS: AMLODIPINE BESYLATE 5 MG TAB PO SCH (09:19)
[2016-10-12] MEDS: METOPROLOL SUCC 50MG EXT REL TAB PO SCH (09:20)
[2016-10-12] MEDS: LISINOPRIL 20 MG TAB PO SCH (09:20)
[2016-10-12] MEDS: CYCLOBENZAPRINE HCL 5 MG TAB PO SCH (09:20)
[2016-10-12 12:08] VITALS: BP 125/65; PULSE 56; TEMP 36.6; O2SAT 94
[2016-10-12 14:56] VITALS: BP 116/63; PULSE 58; TEMP 36.6; O2SAT 94
[2016-10-12] MEDS: SODIUM CHLORIDE 0.9% 1000ML 1,000 ML IV SCH (15:00)
--- NOTE | 2016-10-12 15:14 | Neurology Progress Notes ---
Neurology Progress Note Date of Service Oct 12, 2016. Quentin Morales is a 71 year old with a PMH of left renal and splenic infarcts, severe arthrosclerotic plaque in aortic arch and descending aorta, on Coumadin, CAD, diastolic CHF, chart history of PAF, HTN, dyslipidemia, carotid artery disease. Was seen at [facility] after he had an episode of severe headache and [place] pain [place] was getting out of the car to open the gate and had some head pressure and felt his muscles were weak. He was taken to [facility] and evaluated on October 06 discharged on the and then has returned twice for head pain. He was discharged on Fioricet. He went home and took a shower feed the dogs and sat down in his recliner and the pain started in his neck and then went up to his head and he could hear his heart beat in his ears and then he felt like his head was going to explode. His is beside and states his arms and legs were shaking but there was no LOC, biting tongue or loss of bowel or bladder. He was brought back to the ED by EMS because he couldn't ambulate because of the pain. Today he states he is waiting for the injection from orthopedics and then he was told he could go home. denies CP, SOB, abdominal pain, weakness, numbness tingling, N, V, headache, neck pain Objective Date Time Temp Pulse Resp B/P Pulse Ox O2 Delivery O2 Flow Rate FiO2 10/12/16 14:56 36.6 58 18 116/63 94 Room Air 10/12/16 12:08 36.6 56 18 125/65 94 Room Air 10/12/16 12:00 Room Air 10/12/16 08:00 Room Air 10/12/16 07:25 36.5 54 16 152/74 92 Room Air 10/12/16 04:00 36.6 57 20 149/72 97 Room Air 10/12/16 04:00 97 Room Air 10/12/16 00:00 36.5 51 20 133/65 98 Room Air 10/12/16 00:00 98 Room Air 10/11/16 20:00 93 Room Air 10/11/16 19:08 36.6 57 16 114/50 93 Room Air 10/11/16 16:00 97 Room Air 10/11/16 15:29 36.9 53 16 118/63 94 Room Air Last 24 Hours Test 10/12/16 02:30 10/12/16 08:22 Prothrombin Time 20.1 SECONDS Prothromb Time International Ratio 1.8 Imaging: MRA brain- Mild narrowing within the supraclinoid segment of the distal left ICA. Hypoplastic distal right vertebral artery and a hypoplastic right P1 segment. No evidence for occlusion within the [place]. Exam: Physical Exam: Constitutional: appearance nourished, healthy and normal Ears, Nose, Mouth and Throat: mucous membranes moist, no injection and skin normal, eyes normal Cardiovascular: normal S-1 and S-2 and regular rate and rhythm Respiratory: clear to auscultation (CTA) and no rales, rhonchi or wheeze Musculoskeletal: no peripheral edema and good distal pulses Skin: no stigmata of neurocutaneous disease noted and normal and intact Eyes: extraocular muscles intact (EOMI) and pupils equal, round and reactive to light (PERRL) NEUROLOGIC EXAMINATION: Mental status: Alert and interactive Oriented to full date and location Oriented to person Speech fluent with no evidence of aphasia Cranial Nerves smile eye brow raise symmetric, tongue midline Reflexes: Deep tendon reflexes were symmetrical and graded 2/5. Plantar responses were flexor. Sensory: no sensory deficits Coordination: finger to nose with no bi pass no tremor Gait/Stance: sitting in bed Strength: biceps triceps hand marketing executive, hip flex plantar flex ext Current Inpatient Medications Medications (Trade) Dose Ordered Sig/Eilud Route Start Time Stop Time Status Last Admin Dose Admin Acetaminophen (Tylenol Tab) 650 mg Q4H PRN PO 10/10/16 13:00 11/09/16 12:59 Ondansetron HCl (Zofran Inj) 4 mg Q6H PRN IV 10/10/16 13:00 11/09/16 12:59 Nitroglycerin 0.4 mg 0.4 mg UD PRN SL 10/10/16 13:00 11/09/16 12:59 Sodium Chloride (Nss 1000ml) 1,000 ml @ 80 mls/hr [id number] IV 10/10/16 13:00 11/09/16 12:59 10/11/16 20:35 80 MLS/HR Aspirin (Ecotrin Tab) 81 mg DAILY PO 10/11/16 09:00 11/10/16 08:59 10/12/16 09:19 81 MG Isosorbide Mononitrate (Imdur Ext Rel Tab) 120 mg QAM PO 10/11/16 09:00 11/10/16 08:59 10/12/16 09:19 120 MG Lisinopril (Zestril Tab) 20 mg BID PO 10/10/16 21:00 11/09/16 20:59 10/12/16 09:20 20 MG Metoprolol Succinate (Toprol Xl Tab) 100 mg DAILY PO 10/11/16 09:00 11/10/16 08:59 10/12/16 09:20 100 MG Multivitamins (Multivitamin Tab) 1 tab DAILY PO 10/11/16 09:00 11/10/16 08:59 10/12/16 09:18 1 TAB Rosuvastatin Calcium (Crestor Tab) 20 mg DAILY PO 10/11/16 09:00 11/10/16 08:59 10/12/16 09:18 20 MG Amlodipine Besylate (Norvasc Tab) 10 mg DAILY PO 10/11/16 09:00 11/10/16 08:59 10/12/16 09:19 10 MG Pantoprazole Sodium (Protonix Tab) 40 mg DAILY PO 10/11/16 09:00 11/10/16 08:59 10/12/16 09:18 40 MG Miscellaneous (Iv Fluids Completed) 1 ea PRN PRN N/A 10/10/16 13:30 10/10/17 13:29 Lidocaine (Lidoderm Patch 5%) 1 patch QAM TD 10/11/16 09:00 11/10/16 08:59 10/12/16 09:18 1 PATCH Miscellaneous (Remove Lidoderm Patch) 1 ea DAILY@21 N/A 10/10/16 21:00 11/09/16 20:59 10/11/16 21:03 1 EA Tramadol HCl (Ultram Tab) 50 mg Q6H PRN PO 10/10/16 13:30 11/09/16 13:29 Ketorolac Tromethamine (Toradol Inj) 15 mg Q6H PRN IV. 10/10/16 19:00 10/15/16 18:59 Cyclobenzaprine HCl (Flexeril Tab) 5 mg BID PO 10/11/16 09:45 11/10/16 09:44 10/12/16 09:20 5 MG Impression 71 year old with neck pain, headache Plan 1. currently MRI of left shoulder with possible a vascular necrosis 2. PT/OT for discharge needs 3. coumadin on hold - 4.7 supra therapeutic as previous admission 4. blood pressure control 5. TTE- from admission in July- * Left ventricular systolic function is normal. * Ejection Fraction = 60-65%. * No thrombus is detected in the left atrial appendage. * The interatrial septum is intact with no evidence for an atrial septal defect. * Severe atherosclerotic plaque(s) in the aortic arch. * Severe atherosclerotic plaque(s) in the descending aorta. 6. would not use fiorcet for headaches 7. orthopedics - subacromial injection in his left shoulder and institute physical therapy for adhesive capsulitis. planned 8. pain mgt -flexeril and heat recommended 9. ok from neurology perspective to discharge 10. MRA with no abnormalities I have seen and discussed above patient with Dr Miguel Ángel Han, neurology Pateint known to me from prior hospitalization but the headache story now is different and he state that the pian begins in the left shoulder and radiates up into his bioccipital region and then into his head mra of intracranial vessels normal, mrv last time normal and mri normal without chiari malformation bleed etc and exam is nonfocal :Patient to be discharged today after injection and Neurology can see xochitl Han MD
[2016-10-12] MEDS ORDERED: FLX5 PO (18:40)
[2016-10-12] MEDS ORDERED: ULT50X PO (18:40)
--- NOTE | 2016-10-12 18:42 | Discharge Instructions ---
Discharge Instructions Admission Reason for Admission: Headache Discharge Discharge Diagnosis / Problem: headache. left shoulder pain Discharge Goals Goal(s): Decrease discomfort, Improve function Activity Recommendations Activity Limitations: resume your previous activity . Instructions / Follow-Up Instructions / Follow-Up FOLLOWUP WITH FAMILY DOCTOR Mario Bolton ON oct 17 at 11:30am followup with orthopedics or pain management for left shoulder steroid shot FOLLOWUP WITH COUMADIN CLINIC IN 2-3 DAYS FOR COUMADIN DOSING Current Hospital Diet Patient's current hospital diet: AHA Diet (Heart Healthy) Discharge Diet Recommended Diet: AHA Diet (Heart Healthy) Pending Studies Studies pending at discharge: no Medical Emergencies . Who to Call and When: Medical Emergencies: If at any time you feel your situation is an emergency, please call 911 immediately. . Non-Emergent Contact Non-Emergency issues call your: Primary Care Provider . . "Provider Documentation" section prepared by Antwon Wang. VTE Core Measure Inpt VTE Proph given/why not?: SCD's
[2016-10-12 18:56] VITALS: BP 116/63; PULSE 58; TEMP 36.6; O2SAT 94
--- NOTE | 2016-10-12 19:37 | Progress Note ---
Internal Med Progress Note Date of Service: Oct 12, 2016. Provider Documentation: SUBJECTIVE: pain is better afebrile want to go home OBJECTIVE: Vital Signs-as noted below Exam: General-alert and oriented ENT-normal hearing Neck-no neck masses Lungs-cta b/l no wheezing no crackles Heart-s1 and s2 heard regular rate and rhythm no murmurs Abdomen-soft bowel sounds present non tender no distension Extremities-no erythema no edema Neuro-alert and awake moves extremities Lab data as noted below. ASSESSMENT & PLAN: 71 year old male presents to the ED complaining of severe headache starting in shoulders. Was admitted last week and seen by neurology. MRA neck, MRI, MRV and CT head negative for acute processes INTRACTABLE HEADACHE Ct head negative MRA head negative appreciate neurology and pain management inputs better today want to go home LEFT SHOULDER PAIN MRI shows possible left humerus infarct adhesive capsulitis as per ortho and plan for steroid shot but patient went home and will f/u as out patient may need out patient PT GENERALIZED WEAKNESS/TREMOR/AMBULATORY DYSFUNCTION stable now PT/OT eval HISTORY OF LEFT RENAL AND SPLENIC INFARCT INR on presentation 4.7 Holding Coumadin now INR 1.8 today discharged on home Coumadin close f/u with Coumadin clinic CAD stable on ASA, statin, BB, Imdur, ACEI monitor in tele HTN stable on Norvasc, BB, Lisinopril Imdur monitor in tele CHRONIC DIASTOLIC CHF appears euvolemic stable H/O PAROXYSMAL AFIB in NSR on bb on Coumadin Discharged home Vital Signs: Date Time Temp Pulse Resp B/P Pulse Ox O2 Delivery O2 Flow Rate FiO2 10/12/16 18:56 36.6 58 18 94 Room Air 10/12/16 16:00 Room Air 10/12/16 14:56 36.6 58 18 116/63 94 Room Air 10/12/16 12:08 36.6 56 18 125/65 94 Room Air 10/12/16 12:00 Room Air 10/12/16 08:00 Room Air 10/12/16 07:25 36.5 54 16 152/74 92 Room Air 10/12/16 04:00 36.6 57 20 149/72 97 Room Air 10/12/16 04:00 97 Room Air 10/12/16 00:00 36.5 51 20 133/65 98 Room Air 10/12/16 00:00 98 Room Air 10/11/16 20:00 93 Room Air Lab Results: Results Past 24 Hours Test 10/12/16 02:30 10/12/16 08:22 Range/Units Prothrombin Time 20.1 9.0-12.0 SECONDS Prothromb Time International Ratio 1.8 0.9-1.1
--- NOTE | 2016-10-12 20:24 | Discharge Summary ---
Discharge Summary Admission Date: Oct 10, 2016 at 12:52 Discharge Date: Oct 12, 2016 Discharge Disposition: Home Principal Diagnosis: HEADACHE LEFT SHOULDER PAIN Secondary Diagnoses/Problems: 1) CAD (coronary artery disease) Permanent Comment: 2009 - NSTEMI 2011 - anterolateral STEMI, s/p POBA to LAD diagonal artery occlusion Status: Chronic (2) Carotid stenosis Status: Chronic (3) Diastolic CHF Permanent Comment: echo 12/2015 - EF 60-65%, grade II diastolic dysfunction Status: Chronic (4) Dyslipidemia Status: Chronic (5) GERD (gastroesophageal reflux disease) Status: Chronic (6) HTN (hypertension) Status: Chronic (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 Status: Chronic (8) Osteoporosis Status: Chronic (9) 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 No acute process. UPPER EXTREMITY MRI: 1. Tiny articular surface partial thickness rotator cuff tear. No evidence of tendinous retraction 2. 18 mm focus of subchondral marrow edema involving the humeral head. Although the appearance is nonspecific, a bone infarct is favored. LEFT SHOULDER XRAY: Negative study CERVICAL SPINE MRI: 1. Mild degenerative changes within the cervical spine as described above. 2. No fracture or subluxation. HEAD MRA: 1. Mild narrowing within the supraclinoid segment of the distal left ICA. 2. Hypoplastic distal right vertebral artery and a hypoplastic right P1 segment. 3. No evidence for occlusion within the [place]. Consultations: NEUROLOGY PAIN MANAGEMENT ORTHOPEDICS Medication Reconciliation New Medications: Cyclobenzaprine HCl (Cyclobenzaprine HCl) 5 Mg Tab 5 MG PO BID, #60 TAB Tramadol HCl (Tramadol HCl) 50 Mg Tab 50 MG PO Q6H PRN for Pain, #30 TAB Continued Medications: Alendronate Sodium (Alendronate Sodium) 70 Mg Tab 70 MG PO 1XWK, #4 TAKE 70 MG ONCE A WEEK Amlodipine Besylate (Amlodipine Besylate) 10 Mg Tab 10 MG PO DAILY Aspirin (Aspir-81) 81 Mg Tab 81 MG PO DAILY, TAB 3 Refills Ergocalciferol (Vitamin D) 50,000 Interunit Cap 15743 UNITS PO 1XWK, #12 TAKE 62557 UNITS OF VITAMIN D ONCE A WEEK FOR 12 WEEKS Esomeprazole Magnesium (Nexium) 40 Mg Capcr 40 MG PO DAILY, 0 Refills Isosorbide Mononitrate Ext Rel (Imdur Ext Rel) 120 Mg Ertab 120 MG PO QAM, 0 Refills Lisinopril (Lisinopril) 20 Mg Tab 20 MG PO BID, #90 Metoprolol Succ (Toprol Xl) (Toprol-Xl ) 100 Mg Tabcr 100 MG PO DAILY, 0 Refills Multivitamin (Multivitamin) Tab 1 TABLET PO DAILY, 0 Refills Nitroglycerin (Nitrostat) 0.4 Mg Sub 0.4 MG UT PRN, SUB NEEDED FOR CHEST PAIN : ONE TABLET UNDER THE TONGUE EVERY 5 MINUTES UP TO 3 DOSES. Rosuvastatin Calcium (Crestor) 40 Mg Tab 20 MG PO DAILY Warfarin Sod (Jantoven) 5 Mg Tab 5 MG PO WK, TAB TUESDAYS Warfarin Sod (Jantoven) 5 Mg Tab 2.5 MG PO 6XWK, TAB SATURDAY,SATURDAY,SATURDAY,SATURDAY,SATURDAY,SATURDAY Discontinued Medications: Acetamin/Butalbital/Caffeine (Fioricet) 1 Ea Tab 1 TAB PO Q4 for Headache, #30 TAB Admission Information HPI (per Admitting provider): Patient seen and examined. 71 year old male with PMHx CAD, PAF, HTN, HLD, h/o left renal/splenic infarcts and severe arthrosclerotic plaque to aortic arch and descending aorta on coumadin presents to the ED complaining of headache and ambulatory dysfunction prior to arrival. Patient reports that when he woke up this morning he felt in his usual health, he reports he was sitting in his recliner when he developed BL shoulder pain with radiation to the neck and into the head. The pain in his shoulder feels like he pulled a muscle. His head pain feels like pressure "like my head is going to explode." He has associated pounding in the BL ears. He reports the headache is 6-7/10 in intensity. His family was going to bring him to the ED but he was having generalized weakness and difficulty ambulating. He fell to his knees and was unable to get up without help. He was also tremulous. Patient was admitted to this hospital from 10/04-10/06 with similar symptoms. He had a MRA neck, CT MRI and MRV head/brain which were negative for acute causes. He had been on prednisone and Zanaflex for the shoulder pain which were thought to be the cause and these were discontinued. The patient went home on 10/06 and returned to the ER within hours with the same symptoms. CT head was again negative at this time and he was given Fioricet and discharged home. He reports that Fioricet is helping some. Today the only symptom different than previous is the generalized tremor. Before last week patient reports he has never had headaches like this before. He denies history of seizures and migraines. He denies fevers, chills, photophobia, phonophobia, tinnitus, vision changes, syncope, head trauma, unilateral weakness, facial droop, slurred speech, chest pain, SOB, palpitations , nausea, vomiting, diarrhea, dysuria, calf pain and edema. Patient reports the headache is starting to get a little better without medical intervention. In the ED VS are stable, CT head is again negative for acute processes, CBC, PRP are unremarkable, INR is 4.7. He will be observed for further workup and treatment. Physical Exam (per Admitting): General Appearance: + pertinent finding (WD/WN 71 year old male lying in bed in NAD with at bedside ) Head: normocephalic, atraumatic Eyes: PERRL, EOMI, sclerae normal ENT: hearing grossly normal, pharynx normal Neck: supple, no JVD, trachea midline Respiratory/Chest: chest non-tender, lungs clear, normal breath sounds, no respiratory distress, no accessory muscle use Cardiovascular: regular rate, rhythm, no edema, no gallop, no JVD, no murmur , normal peripheral pulses Abdomen/GI: normal bowel sounds, non tender, soft Back: normal inspection, no muscle spasm Extremities/Musculoskelatal: no calf tenderness, normal capillary refill, no pedal edema, + pertinent finding (Shoulders/neck nontender to palpation, no muscule spasms, no bruising/rashes/edema ) Neurologic/Psych: mlt II-XII nml as tested, no motor/sensory deficits, alert , normal mood/affect, oriented x 3, + pertinent finding (Finger to nose intact, pronator drift negative, no focal deficits noted ) Skin: normal color, warm/dry, no rash Lymphatic: no adenopathy Physical Exam (per Admitting): General Appearance: + pertinent finding (WD/WN 71 year old male lying in bed in NAD with at bedside ) Head: normocephalic, atraumatic Eyes: PERRL, EOMI, sclerae normal ENT: hearing grossly normal, pharynx normal Neck: supple, no JVD, trachea midline Respiratory/Chest: chest non-tender, lungs clear, normal breath sounds, no respiratory distress, no accessory muscle use Cardiovascular: regular rate, rhythm, no edema, no gallop, no JVD, no murmur, normal peripheral pulses Abdomen/GI: normal bowel sounds, non tender, soft Back: normal inspection, no muscle spasm Extremities/Musculoskelatal: no calf tenderness, normal capillary refill, no pedal edema, + pertinent finding (Shoulders/neck nontender to palpation, no muscule spasms, no bruising/rashes/edema ) Neurologic/Psych: mlt II-XII nml as tested, no motor/sensory deficits, alert, normal mood/affect, oriented x 3, + pertinent finding (Finger to nose intact, pronator drift negative, no focal deficits noted ) Skin: normal color, warm/dry, no rash Lymphatic: no adenopathy Hospital Course 71 year old male presents to the ED complaining of severe headache starting in shoulders. Was admitted last week and seen by neurology. MRA neck, MRI, MRV and CT head negative for acute processes INTRACTABLE HEADACHE Ct head negative MRA head negative appreciate neurology and pain management inputs better today want to go home LEFT SHOULDER PAIN MRI shows possible left humerus infarct adhesive capsulitis as per ortho and plan for steroid shot but patient went home and will f/u as out patient may need out patient PT GENERALIZED WEAKNESS/TREMOR/AMBULATORY DYSFUNCTION stable now PT/OT eval HISTORY OF LEFT RENAL AND SPLENIC INFARCT INR on presentation 4.7 Holding Coumadin now INR 1.8 today discharged on home Coumadin close f/u with Coumadin clinic CAD stable on ASA, statin, BB, Imdur, ACEI monitor in tele HTN stable on Norvasc, BB, Lisinopril Imdur monitor in tele CHRONIC DIASTOLIC CHF appears euvolemic stable H/O PAROXYSMAL AFIB in NSR on bb on Coumadin Discharged home Total time spent on discharge = 35MINUTES This includes examination of the patient, discharge planning, medication reconciliation, and communication with other providers. Discharge Instructions Discharge Instructions Admission Reason for Admission: Headache Discharge Discharge Diagnosis / Problem: headache. left shoulder pain Discharge Goals Goal(s): Decrease discomfort, Improve function Activity Recommendations Activity Limitations: resume your previous activity . Instructions / Follow-Up Instructions / Follow-Up FOLLOWUP WITH FAMILY DOCTOR Mario Bolton ON oct 17 at 11:30am followup with orthopedics or pain management for left shoulder steroid shot FOLLOWUP WITH COUMADIN CLINIC IN 2-3 DAYS FOR COUMADIN DOSING Current Hospital Diet Patient's current hospital diet: AHA Diet (Heart Healthy) Discharge Diet Recommended Diet: AHA Diet (Heart Healthy) Pending Studies Studies pending at discharge: no Medical Emergencies . Who to Call and When: Medical Emergencies: If at any time you feel your situation is an emergency, please call 911 immediately. . Non-Emergent Contact Non-Emergency issues call your: Primary Care Provider . . "Provider Documentation" section prepared by Antwon Wang. VTE Core Measure Inpt VTE Proph given/why not?: SCD's
[2016-10-17 09:29] LABS: METANEPHRINE 278 mcg/24 h (90-315); NORMETANEPHRINE UR 425 mcg/24 h (122-676); TOTAL METANEPHRINE 703 mcg/24 h (224-832)
--- NOTE | 2016-10-17 11:50 | EDITING REQUIRED CODING QUERY ---
SUPPORTING DIAGNOSIS NEEDED A supporting diagnosis is required for the test/procedure performed on this patient in order for us to be reimbursed by the patient's insurance. Please provide a supporting diagnosis for the following test/procedure listed below next to the test name along with your signature. *If there is no additional diagnosis for this patient that would support the following test/procedure please document that below next to the test/procedure. Test(s)/Procedure(s) that require a supporting diagnosis: * MRA HEAD, NECK DIAGNOSIS: sudden onset severe headache * DOS: 10/11/16 Provider Signature: Date: Thank you Heike Hou Health Information Management For questions please call [phone]
== END 2016-10-12 19:22 | disposition home or self-care (01) ==
LOC: ENRESERVTM → ENRESERVDT → EDBD 08:46 → C.EDA 08:49 → C.2T 12:52
PROVIDERS: ADMIT Internal Medicine; ATTEND Internal Medicine
DX: R51 Headache (principal); E78.5 Hyperlipidemia, unspecified; I25.10 Atherosclerotic heart disease of native coronary artery without angina pectoris; I48.0 Paroxysmal atrial fibrillation; I10 Essential (primary) hypertension; Z79.01 Long term (current) use of anticoagulants; R26.9 Unspecified abnormalities of gait and mobility; M25.511 Pain in right shoulder; M25.512 Pain in left shoulder; I50.30 Unspecified diastolic (congestive) heart failure; K21.9 Gastro-esophageal reflux disease without esophagitis; M81.0 Age-related osteoporosis without current pathological fracture; R25.1 Tremor, unspecified; Z87.891 Personal history of nicotine dependence; I25.2 Old myocardial infarction; I65.29 Occlusion and stenosis of unspecified carotid artery

== ENCOUNTER 2016-12-10 19:00 | Emergency (ER) | payer OTHER ==
[~2016-12-10] VITALS: Ht 165.1 cm; Wt 67.0 kg
[~2016-12-10 19:00] MED LIST changes: +FLX5 PO; -FRCT/ PO; +METO100T44 PO; -METO1TAB69 PO; +ULT50X PO
[2016-12-10 19:47] VITALS: TEMP 36.5; Ht 165.1 cm; Wt 67.0 kg
--- NOTE | 2016-12-10 20:37 | EMERGENCY ROOM VISIT NOTE ---
ED Visit Note First contact with patient: 20:36 I have seen and examined this patient with Jeramie Roca and generally agree with the treatment plan as discussed. 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 Status: Chronic Surgical Problems: (1) History of total right hip replacement Status: Chronic Current/Historical Medications Scheduled Alendronate Sodium (Alendronate Sodium), 70 MG PO 1XWK Amlodipine Besylate (Amlodipine Besylate), 10 MG PO DAILY Aspirin (Aspir-81), 81 MG PO DAILY Cyclobenzaprine HCl (Cyclobenzaprine HCl), 5 MG PO BID Ergocalciferol (Vitamin D), 50,000 UNITS PO 1XWK Esomeprazole Magnesium (Nexium), 40 MG PO DAILY Isosorbide Mononitrate Ext Rel (Imdur Ext Rel), 120 MG PO QAM Lisinopril (Lisinopril), 20 MG PO BID Metoprolol Succ (Toprol Xl) (Toprol-Xl ), 100 MG PO DAILY Multivitamin (Multivitamin), 1 TABLET PO DAILY Nitroglycerin (Nitrostat), 0.4 MG UT PRN Rosuvastatin Calcium (Crestor), 20 MG PO DAILY Warfarin Sod (Jantoven), 5 MG PO WK Warfarin Sod (Jantoven), 2.5 MG PO 6XWK Scheduled PRN Tramadol HCl (Tramadol HCl), 50 MG PO Q6H PRN for Pain Allergies Coded Allergies: No Known Allergies (Verified , 10/06/16) Vital Signs Date Time Temp Pulse Resp B/P Pulse Ox O2 Delivery O2 Flow Rate FiO2 12/10/16 19:47 36.5 63 20 105/74 96 Room Air Departure Information Referrals Mario Mosquera MD (PCP) Patient Instructions My [facility]
[2016-12-10] MEDS ORDERED: FLAVONOID PO (21:11)
--- NOTE | 2016-12-10 21:20 | EMERGENCY ROOM VISIT NOTE ---
History First contact with patient: 19:57 Chief Complaint: FINGER PAIN Stated Complaint: RING SWOLLEN ON RING FINGER, R HAND History of Present Illness The patient is a 71 year old male who presents to the Emergency Room via private vehicle with complaints of "Ring swollen ring finger, right hand". The patient states that on he was operating a wrench, and he struck the battery terminal nearby causing an electrical current to travel through the ring on his right finger and into the wrench. He states that the wrench and the ring on his right fourth digit began to super heat. He states that he is developed swelling in the area and cannot remove his ring. He notes minimal pain that he rates as a 4/10. He notes now the distal finger is becoming swollen and he has pain radiating into the hand. He denies any fevers, chills, numbness or tinging when. His tetanus is up-to-date. Review of Systems A complete 6-point Review of Systems was discussed with the patient, with pertinent positives and negatives listed in the History of Present Illness. All remaining Review of Systems questions can be considered negative unless otherwise specified. 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 Surgical Problems: (1) History of total right hip replacement Family History Diabetes mellitus FATHER Hypertension MOTHER Stroke MOTHER Social History Smoking Status: Former Smoker Alcohol Use: occasionally Drug Use: none Marital Status: Housing Status: lives with family Occupation Status: retired Current/Historical Medications Scheduled Alendronate Sodium (Alendronate Sodium), 70 MG PO 1XWK Amlodipine Besylate (Amlodipine Besylate), 10 MG PO DAILY Aspirin (Aspir-81), 81 MG PO DAILY Cyclobenzaprine HCl (Cyclobenzaprine HCl), 5 MG PO BID Ergocalciferol (Vitamin D), 50,000 UNITS PO 1XWK Esomeprazole Magnesium (Nexium), 40 MG PO DAILY Isosorbide Mononitrate Ext Rel (Imdur Ext Rel), 120 MG PO QAM Lisinopril (Lisinopril), 20 MG PO BID Metoprolol Succ (Toprol Xl) (Toprol-Xl ), 100 MG PO DAILY Multivitamin (Multivitamin), 1 TABLET PO DAILY Nitroglycerin (Nitrostat), 0.4 MG UT PRN Rosuvastatin Calcium (Crestor), 20 MG PO DAILY Warfarin Sod (Jantoven), 2.5 MG PO DAILY [Flavonoid], 3 TABS PO DAILY Allergies Coded Allergies: No Known Allergies (Verified , 12/10/16) Physical Exam Vital Signs Date Time Temp Pulse Resp B/P Pulse Ox O2 Delivery O2 Flow Rate FiO2 12/10/16 21:26 62 18 117/64 94 12/10/16 19:47 36.5 63 20 105/74 96 Room Air Physical Exam VITAL SIGNS - Vital signs and nursing notes were reviewed. Patient is afebrile , blood pressure 105/74, non-tachycardic and is saturating well on room air 96%. GENERAL -71-year-old male appearing his stated age who is in no acute distress. Communicates well with provider and answers questions appropriately. SKIN - there is evidence of edematous finger, distal to the ring on the right fourth digit. There is also a crusted brown/yellow area where the skin meets the ring. There is no lymphangitic streaking or evidence of proximal involvement. No tenderness in the hand. Good capillary refill. HEAD - NC/AT. EXTREMITIES - there is full range of motion of the right hand and digits. He is neurovascularly intact in the right upper extremity. Medical Decision & Procedures Medical Decision Patient was seen and evaluated as above. After obtaining a thorough history and physical examination it was discussed with the patient that the ring would have to be removed from his finger. The only way to remove the ring appears to be through cutting the ring. Patient acknowledged this and provided consent. A ring cutter was then used to remove the ring. Patient tolerated this well. The ring was then retracted using hemostats. He tolerated this well. The underlying region does reveal a second degree burn of the finger. The area was thoroughly cleansed, and dressed with a bacitracin and Telfa dressing. It was secured in place with Coban. My attending recommended that I have the patient follow-up with the wound care center. I do believe this is reasonable secondary to the patient's injury. I do not believe that a burn center consult is necessary at this time. There is no evidence of infection or need for oral antibiotics. Patient's pain diminished after removing the ring. He was given the ring after it was removed. He was educated upon management of today's findings, the assistant case manager are setting up an appointment for him at the wound care center and I filled out the appropriate paperwork, he had questions prior to discharge, and was discharged home in good condition. There was no bony tenderness or evidence of need for x-ray. In the evaluation treatment of this patient the following differential diagnoses were entertained: Burn, sialitis, among others. Impression Primary Impression: Burn of finger Departure Information Dispostion Home / Self-Care Condition GOOD Referrals Mario Mosquera MD (PCP) Patient Instructions My [facility] Additional Instructions You have been treated in the Emergency Department today for a burn on your finger. You should use an antibiotic Ointment. This is an antibiotic ointment that will help to prevent the development of an infection at the site of your burn. After you have cleaned the burn site with soap and water and dried the area thoroughly, you should apply a layer of the ointment to the site of the burn with clean gauze or a clean tongue depressor. You should apply a dressing over the site of the burn to keep it clean from contamination. Look for signs of infection of the wound including: increased pain, swelling, foul discharge, streaking, or increased temperature. If any of these are noticed you should return to the Emergency Department for further assessment and treatment. For pain control, you can use the following lica-pcr-sbinknx medicines (if >12 yo): - Regular strength (325mg/tab) Tylenol (acetaminophen) 2 tabs every 4-6 hours as needed. Do not exceed 12 tablets in a 24 hour period. Avoid taking more than 4 grams (4000 mg) of Tylenol per day. This includes any other sources of acetaminophen you may take on a regular basis. - Regular strength (200 mg/tab) Advil (ibuprofen) 1-2 tabs every 4-6 hours as needed. Do not exceed a dose of 3200 mg per day. Please follow-up with the wound care center. You are to receive a call near future regarding scheduling. If not, please return in 48 hours emergency Department for recheck of your wound. Please call [phone] which is the emergency Department number if you experience any difficulties. Return to the emergency department if your symptoms worsen despite treatment course outlined above. Please return to emergency department with any new/concerning symptoms.
[2016-12-10 21:26] VITALS: BP 117/64; PULSE 62; O2SAT 94
== END 2016-12-10 21:28 | disposition home or self-care (01) ==
LOC: C.EDB 19:02 → C.EDD 21:28
DX: T23.221A Burn of second degree of single right finger (nail) except thumb, initial encounter (principal); W86.8XXA Exposure to other electric current, initial encounter; I25.10 Atherosclerotic heart disease of native coronary artery without angina pectoris; I65.29 Occlusion and stenosis of unspecified carotid artery; I50.32 Chronic diastolic (congestive) heart failure; E78.5 Hyperlipidemia, unspecified; K21.9 Gastro-esophageal reflux disease without esophagitis; I10 Essential (primary) hypertension; N28.0 Ischemia and infarction of kidney; D73.5 Infarction of spleen; M81.0 Age-related osteoporosis without current pathological fracture; I70.0 Atherosclerosis of aorta; Z96.641 Presence of right artificial hip joint; Z79.82 Long term (current) use of aspirin; Z79.01 Long term (current) use of anticoagulants; Z87.891 Personal history of nicotine dependence; Z83.3 Family history of diabetes mellitus; Z82.49 Family history of ischemic heart disease and other diseases of the circulatory system; Z82.3 Family history of stroke

== ENCOUNTER 2016-12-15 17:56 | Inpatient (IN) | payer OTHER ==
[~2016-12-15] VITALS: Ht 177.8 cm; Wt 64.5 kg
[~2016-12-15 17:56] MED LIST changes: +FLAVONOID PO; -ULT50X PO
[2016-12-15] MEDS ORDERED: SODIUM CHLORIDE 0.9% 1000ML 1,000 ML IV STA ×2 (18:07→19:12)
--- NOTE | 2016-12-15 18:12 | EMERGENCY ROOM VISIT NOTE ---
History Report prepared by Isaias: Ty Larsen Under the Supervision of: Dr. Harsh Dennis M.D. First contact with patient: 18:00 Chief Complaint: ALTERED MENTAL STATUS Stated Complaint: AMS History of Present Illness The patient is a 71 year old male who presents to the Emergency Room with complaints of altered mental status that began [employer]. This HPI is given per the patient's secondary to the patient's altered mental status. Per the , the patient was running errands today after he drank two beers at the [employer]. He stated that he had a very mild head injury when he was stepping out of his car. After this, he sat down on his recliner for a couple of minutes. He then walked into the living room and seemed very perplexed and confused. He does not have a history of liver problems. He also denies any fevers. His blood sugar [employer] was 173. He is having a tremble in his right hand. He is currently on Coumadin. Source of History: family Onset: [employer] Position: other (global) Symptom Intensity: moderate Quality: other (AMS) Timing: constant Associated Symptoms: No fevers Note: He is experiencing a tremble in his right hand. Review of Systems See HPI for pertinent positives & negatives. A total of 10 systems reviewed and were otherwise negative. 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 Surgical Problems: (1) History of total right hip replacement Family History Diabetes mellitus FATHER Hypertension MOTHER Stroke MOTHER Social History Smoking Status: Former Smoker Alcohol Use: occasionally Drug Use: none Marital Status: Housing Status: lives with family Occupation Status: retired Current/Historical Medications Scheduled Alendronate Sodium (Alendronate Sodium), 70 MG PO 1XWK Amlodipine Besylate (Amlodipine Besylate), 10 MG PO DAILY Aspirin (Aspir-81), 81 MG PO DAILY Cyclobenzaprine Hcl (Flexeril), 5 MG PO BID Ergocalciferol (Vitamin D), 50,000 UNITS PO 1XWK Esomeprazole Magnesium (Nexium), 40 MG PO DAILY Isosorbide Mononitrate Ext Rel (Imdur Ext Rel), 120 MG PO QAM Lisinopril (Lisinopril), 20 MG PO BID Metoprolol Succ (Toprol Xl) (Toprol-Xl ), 100 MG PO DAILY Multivitamin (Multivitamin), 1 TABLET PO DAILY Nitroglycerin (Nitrostat), 0.4 MG UT PRN Rosuvastatin Calcium (Crestor), 20 MG PO DAILY Warfarin Sod (Jantoven), 2.5 MG PO DAILY [Flavonoid], 3 TABS PO DAILY Allergies Coded Allergies: No Known Allergies (Verified , 12/10/16) Physical Exam Vital Signs Date Time Temp Pulse Resp B/P Pulse Ox O2 Delivery O2 Flow Rate FiO2 12/15/16 19:04 72 18 144/79 93 Room Air 12/15/16 18:23 81 12/15/16 18:11 36.7 73 18 151/76 95 Room Air Physical Exam GENERAL: Patient is well appearing and in no acute distress. HEENT: No acute trauma, normocephalic atraumatic, mucous membranes moist, no nasal congestion, no scleral icterus. NECK: No stridor, no adenopathy, no meningismus, trachea is midline. LUNGS: No dyspnea. Clear to auscultation and equal bilaterally. No wheeze, no rhonchi. HEART: Regular rate and rhythm. No murmurs, rubs, gallops appreciated. ABDOMEN: Soft, nontender, bowel sounds positive, no masses appreciated, no peritonitis. BACK: No midline tenderness, no CVA tenderness EXTREMITIES: Normal motion all extremities, no cyanosis, no edema. NEUROLOGIC: Confused, nonverbal, moves to commands, no acute motor or sensory deficits, no focal weakness, cranial nerves grossly intact. SKIN: No rash, no jaundice, no diaphoresis. Medical Decision & Procedures ER Provider Diagnostic Interpretation: Radiology results are stated below per my review and radiologist interpretation: CT HEAD WITHOUT CONTRAST (CT) CLINICAL HISTORY: Acute change in mental status COMPARISON STUDY: 10/10/2016 TECHNIQUE: Axial CT of the brain is performed from the vertex to the skull base. IV contrast was not administered for this examination. CT DOSE: 601.98 mGy.cm FINDINGS: No intra or extra-axial mass lesions are visualized. There is no CT evidence of acute cortical infarction. There is no evidence of midline shift. There is no acute hemorrhage. No calvarial fractures are visualized. There are minimal white matter hypodensities likely on a small vessel basis. 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 There is no evidence of acute sinusitis. There are left supraclinoid carotid calcifications. IMPRESSION: No acute intracranial findings Electronically signed by: Nacho Sandoval M.D. 12/15/2016 6:47 PM Dictated Date/Time: 12/15/2016 6:45 PM CHEST ONE VIEW PORTABLE CLINICAL HISTORY: Acute change in mental status COMPARISON STUDY: 09/28/2016 FINDINGS: The heart is borderline enlarged. There is no failure. There is no focal pulmonary consolidation. There are no pleural effusions. There is a stable area of linear atelectasis/scarring at the left lung base[ IMPRESSION: No active disease in the chest. Electronically signed by: Nacho Sandoval M.D. 12/15/2016 6:56 PM Dictated Date/Time: 12/15/2016 6:55 PM Laboratory Results 12/15/16 18:30 Red Blood Count 4.88, Mean Corpuscular Volume 89.1, Mean Corpuscular Hemoglobin 32.2, Mean Corpuscular Hemoglobin Concent 36.1, Mean Platelet Volume 9.8, Neutrophils (%) (Auto) 62.9, Lymphocytes (%) (Auto) 24.5, Monocytes (%) (Auto) 8.6, Eosinophils (%) (Auto) 3.6, Basophils (%) (Auto) 0.2, Neutrophils # (Auto) 2.62, Lymphocytes # (Auto) 1.02, Monocytes # (Auto) 0.36, Eosinophils # (Auto) 0.15, Basophils # (Auto) 0.01 12/15/16 18:30 Test 12/15/16 00:00 12/15/16 18:30 12/15/16 19:03 12/15/16 19:10 Urine Color YELLOW Urine Appearance CLEAR (CLEAR) Urine pH 5.5 (4.5-7.5) Urine Specific [place] 1.003 (1.000-1.030) Urine Protein NEG (NEG) Urine Glucose (UA) NEG (NEG) Urine Ketones NEG (NEG) Urine Occult Blood NEG (NEG) Urine Nitrite NEG (NEG) Urine Bilirubin NEG (NEG) Urine Urobilinogen NEG (NEG) Urine Leukocyte Esterase NEG (NEG) Urine WBC (Auto) 0 /hpf (0-5) Urine RBC (Auto) 0-4 /hpf (0-4) Urine Hyaline Casts (Auto) 0 /lpf (0-5) Urine Epithelial Cells (Auto) 0-5 /lpf (0-5) Urine Bacteria (Auto) NEG (NEG) Urine Opiates Screen NEG (NEG) Urine Methadone, Qualitative NEG (NEG) Urine Barbiturates NEG (NEG) Urine Phencyclidine (PCP) Level NEG (NEG) Ur Amphetamine/Methamphetamine NEG (NEG) MDMA (Ecstasy) Screen NEG (NEG) Urine Benzodiazepines Screen NEG (NEG) Urine Cocaine Metabolite NEG (NEG) Urine Marijuana (THC) NEG (NEG) White Blood Count 4.17 K/uL (4.8-10.8) Red Blood Count 4.88 M/uL (4.7-6.1) Hemoglobin 15.7 g/dL (14.0-18.0) Hematocrit 43.5 % (42-52) Mean Corpuscular Volume 89.1 fL (80-100) Mean Corpuscular Hemoglobin 32.2 pg (25-34) Mean Corpuscular Hemoglobin Concent 36.1 g/dl (32-36) Platelet Count 218 K/uL (130-400) Mean Platelet Volume 9.8 fL (7.4-10.4) Neutrophils (%) (Auto) 62.9 % Lymphocytes (%) (Auto) 24.5 % Monocytes (%) (Auto) 8.6 % Eosinophils (%) (Auto) 3.6 % Basophils (%) (Auto) 0.2 % Neutrophils # (Auto) 2.62 K/uL (1.4-6.5) Lymphocytes # (Auto) 1.02 K/uL (1.2-3.4) Monocytes # (Auto) 0.36 K/uL (0.11-0.59) Eosinophils # (Auto) 0.15 K/uL (0-0.5) Basophils # (Auto) 0.01 K/uL (0-0.2) RDW Standard Deviation 43.6 fL (36.4-46.3) RDW Coefficient of Variation 13.4 % (11.5-14.5) Immature Granulocyte % (Auto) 0.2 % Immature Granulocyte # (Auto) 0.01 K/uL (0.00-0.02) Prothrombin Time 44.4 SECONDS (9.0-12.0) Prothromb Time International Ratio 3.9 (0.9-1.1) Activated Partial Thromboplast Time 48.3 SECONDS (21.0-31.0) Partial Thromboplastin Ratio 1.9 D-Dimer < 190 ug/L FEU (0-500) Anion Gap 11.0 mmol/L (3-11) Est Creatinine Clear Calc Drug Dose 73.5 ml/min Estimated GFR () 98.5 Estimated GFR (Non- 85.0 BUN/Creatinine Ratio 7.2 (10-20) Calcium Level 9.2 mg/dl (8.5-10.1) Total Bilirubin 0.4 mg/dl (0.2-1) Direct Bilirubin 0.2 mg/dl (0-0.2) Aspartate Amino Transf (AST/SGOT) 23 U/L (15-37) Alanine Aminotransferase (ALT/SGPT) 27 U/L (12-78) Alkaline Phosphatase 78 U/L (45-117) Ammonia 29.0 umol/L (11-32) Troponin I < 0.015 ng/ml (0-0.045) Total Protein 8.1 gm/dl (6.4-8.2) Albumin 4.4 gm/dl (3.4-5.0) Ethyl Alcohol mg/dL 114.0 mg/dl (0-3) Bedside Lactic Acid Venous 2.18 mmol/L (0.90-1.70) Laboratory results as reviewed by me. Medications Administered Medications (Trade) Dose Ordered Sig/Eliud Route Start Time Stop Time Status Last Admin Dose Admin Sodium Chloride 1,000 ml @ 75 mls/hr [id number] STAT IV 12/15/16 18:07 12/15/16 21:31 DC 12/15/16 18:07 75 MLS/HR Sodium Chloride (Nss 1000ml) 1,000 ml @ 999 mls/hr Q1H1M STAT IV 12/15/16 19:12 12/15/16 20:12 DC 12/15/16 19:20 999 MLS/HR Fentanyl Citrate (Fentanyl Inj) 25 mcg NOW STAT IV 12/15/16 19:27 12/15/16 19:28 DC 12/15/16 19:35 25 MCG ECG Indication: altered mental status Rate (beats per minute): 72 Rhythm: normal sinus Findings: no acute ischemic change, no ectopy ED Course 1800: The patient was evaluated in room C7. A complete history and physical exam was performed. 1806: Ordered Sodium Chloride 1000 ml @ 75 mls/hr IV 1852: I reassessed the patient at this time. His condition has not changed. 1911: Ordered Sodium Chloride 1000 ml @ 999 mls/hr IV 1925: The patient began to respond at this time. He is complaining of a left sided headache. Per his , the patient has been experiencing this pain since September. No one can figure out why this is occurring. 1926: Ordered Fentanyl Citrate 25 mcg IV 1944: Upon reevaluation, the patient is resting. Discussed results and treatment plan with the patient. He verbalized understanding and agreement with the treatment plan. The patient will be evaluated by Dr. Isai Antoine Hospitalist, for further management. Medical Decision Differential: Toxicological, Infectious, Stroke, SAH, Trauma, Electrolyte Abnormality, Hypoglycemia, Alcohol Intoxication, Drug Intoxication, Cardiac Abnormality, Sepsis, Meningitis/Encephalitis, Trauma, Excited Delirium, Serotonin Syndrome, Psychiatric, amongst other pathologies entertained. 71 yr old male arrives via EMS for AMS. Drinking etoh and returned home normal though after some time was altered, confused and not acting self. On initial exam he is clearly confused though protecting airway and without infectious findings. CT head negative. WBC normal. Ammonia negative. UA and CXR clear. Labs unremarkable otherwise. He after some time awoke and returning to normal. Complaining of left headache which apparently was quite severe last few months resulting in several ED evaluations with unknown etiology. Stable though given this episode will need to come in for further evaluation and treatment. Consults Time Called: 1939 Consulting Physician: Dr. Isai Antoine Hospitalist Returned Call: 1944 They will be evaluating the patient for further management. Impression Primary Impression: Altered mental status Additional Impressions: Confusion Headache Scribe Attestation The scribe's documentation has been prepared under my direction and personally reviewed by me in its entirety. I confirm that the note above accurately reflects all work, treatment, procedures, and medical decision making performed by me. Departure Information Dispostion Being Evaluated By Hospitalist Mario Balbuena MD (PCP) Patient Instructions My [facility] Problem Qualifiers Primary Impression: Altered mental status Altered mental status type: transient alteration of awareness Qualified Codes : R40.4 - Transient alteration of awareness Additional Impressions: Headache Headache type: unspecified Headache chronicity pattern: chronic headache Intractability: not intractable Qualified Codes: R51 - Headache
--- NOTE | 2016-12-15 18:49 | DIAGNOSTIC IMAGING REPORT ---
CT HEAD WITHOUT CONTRAST (CT) CLINICAL HISTORY: Acute change in mental status COMPARISON STUDY: 10/10/2016 TECHNIQUE: Axial CT of the brain is performed from the vertex to the skull base. IV contrast was not administered for this examination. CT DOSE: 601.98 mGy.cm FINDINGS: No intra or extra-axial mass lesions are visualized. There is no CT evidence of acute cortical infarction. There is no evidence of midline shift. There is no acute hemorrhage. No calvarial fractures are visualized. There are minimal white matter hypodensities likely on a small vessel basis. 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 There is no evidence of acute sinusitis. There are left supraclinoid carotid calcifications. IMPRESSION: No acute intracranial findings Electronically signed by: Nacho Sandoval M.D. 12/15/2016 6:47 PM Dictated Date/Time: 12/15/2016 6:45 PM
[2016-12-15 18:52] LABS: BASO % 0.2 %; BASO ABS # 0.01 K/uL (0-0.2); COMPLETE YES; EOS % 3.6 %; HEMATOCRIT 43.5 % (42-52); IG% 0.2 %; LYMPH % 24.5 %; LYMPH ABS # 1.02 K/uL (1.2-3.4); MEAN CELL VOLUME 89.1 fL (80-100); MEAN CORPUSCULAR HEMOGLOBIN 32.2 pg (25-34); MEAN CORPUSCULAR HGB CONC 36.1 g/dl (32-36); MEAN PLATELET VOLUME 9.8 fL (7.4-10.4); MONO % 8.6 %; NEUT % 62.9 %; PLATELET COUNT 218 K/uL (130-400); RED BLOOD COUNT 4.88 M/uL (4.7-6.1); WHITE BLOOD COUNT 4.17 K/uL (4.8-10.8)
--- NOTE | 2016-12-15 18:58 | DIAGNOSTIC IMAGING REPORT ---
CHEST ONE VIEW PORTABLE CLINICAL HISTORY: Acute change in mental status COMPARISON STUDY: 09/28/2016 FINDINGS: The heart is borderline enlarged. There is no failure. There is no focal pulmonary consolidation. There are no pleural effusions. There is a stable area of linear atelectasis/scarring at the left lung base[ IMPRESSION: No active disease in the chest. Electronically signed by: Nacho Sandoval M.D. 12/15/2016 6:56 PM Dictated Date/Time: 12/15/2016 6:55 PM
[2016-12-15 19:02] LABS: URINE APPEARANCE CLEAR (CLEAR); URINE BILIRUBIN NEG (NEG); URINE COLOR YELLOW; URINE EPITHELIAL CELL AUTO 0-5 /lpf (0-5); URINE NITRITE NEG (NEG); URINE PH 5.5 (4.5-7.5); URINE SPECIFIC GRAVITY 1.003 (1.000-1.030); UROBILINOGEN NEG (NEG); ZZURINE CULT IF INDIC CATH NO
[2016-12-15 19:06] LABS: ALT/SGPT 27 U/L (12-78); AST/SGOT 23 U/L (15-37); BLOOD UREA NITROGEN 6 mg/dl (7-18); BUN/CREATININE RATIO 7.2 (10-20); CALCIUM 9.2 mg/dl (8.5-10.1); CARBON DIOXIDE 24 mmol/L (21-32); CHLORIDE 107 mmol/L (98-107); GLUCOSE 158 mg/dl (70-99); POTASSIUM 3.8 mmol/L (3.5-5.1); SODIUM 142 mmol/L (136-145)
[2016-12-15 19:10] LABS: MANUAL MICROSCOPIC REQUIRED? NO; REVIEW REQ? NO
[2016-12-15 19:11] LABS: ALKALINE PHOSPHATASE 78 U/L (45-117)
[2016-12-15 19:14] LABS: PARTIAL THROMBOPLASTIN RATIO 1.9
[2016-12-15] MEDS ORDERED: FENTANYL CITRATE INJ 50 MCG/1 ML 2 ML VIAL IV STA (19:27)
--- NOTE | 2016-12-15 19:56 | History and Physical ---
History & Physical Date & Time of Service: Dec 15, 2016 at 19:55 Chief Complaint: AMS Primary Care Physician: Mario Mosquera MD History of Present Illness Source: patient, spouse 114 This is 71 yo M with PMHx of CAD , PAF, HTN , Hyperlipidemia , hx of Left renal and splenic infract on chronic anticoagulation with Coumadin brought the ED by as pt was found to be confused , disoriented earlier today . As per pt was fine this morning , did his regular chores , when to the [place] around 2 pm had some beer with friends , came home approx 4 pm , was found to be confused , pt mentions of bumping his head on the car door as he attempt to get out . on arrival his activity was normal , sat down , turned on the TV , few minutes later he was standing dazed in the kitchen . was making supper -called his name several times but pt did not seem to hear , he took paint brush and went out to porch , appears to be he did not know what to do, came back to kitchen , dropped the tools not able to respond to name calling, complains that he is having severe headache as if ( his head will burst ) , felt dizzy and lightheaded on arrival to ED his symptom of confusion was resolved, still having headache mostly localized to left side of head , no blurred vision , no weakness or paresthesia CT head w/out contrast negative for acute change INR 3.7 ammonia , LFT level wnl Blood alcohol level 114 pt denies of any chest pain , SOB ,palpitation , Past Medical/Surgical History Medical Problems: (1) CAD (coronary artery disease) Permanent Comment: 2009 - NSTEMI 2011 - anterolateral STEMI, s/p POBA to LAD diagonal artery occlusion Status: Chronic (2) Carotid stenosis Status: Chronic (3) Diastolic CHF Permanent Comment: echo 12/2015 - EF 60-65%, grade II diastolic dysfunction Status: Chronic (4) Dyslipidemia Status: Chronic (5) GERD (gastroesophageal reflux disease) Status: Chronic (6) HTN (hypertension) Status: Chronic (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 Status: Chronic (8) Osteoporosis Status: Chronic (9) 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 Status: Chronic Surgical Problems: (1) History of total right hip replacement Status: Chronic Family History Diabetes mellitus FATHER Hypertension MOTHER Stroke MOTHER Social History Smoking Status: Unknown if Ever Smoked Drug Use: none Marital Status: Housing status: lives with significant other Occupational Status: retired Immunizations History of Influenza Vaccine: Yes Influenza Vaccine Date: Jun 18, 2016 History of Tetanus Vaccine?: Yes Tetanus Immunization Date: Nov 16, 2013 History of Pneumococcal: Yes Pneumococcal Date: Nov 08, 2015 Multi-Drug Resistant Organisms History of MDRO: No Allergies Coded Allergies: No Known Allergies (Verified , 12/10/16) Home Medications Scheduled Alendronate Sodium (Alendronate Sodium), 70 MG PO 1XWK Amlodipine Besylate (Amlodipine Besylate), 10 MG PO DAILY Aspirin (Aspir-81), 81 MG PO DAILY Cyclobenzaprine Hcl (Flexeril), 5 MG PO BID Ergocalciferol (Vitamin D), 50,000 UNITS PO 1XWK Esomeprazole Magnesium (Nexium), 40 MG PO DAILY Isosorbide Mononitrate Ext Rel (Imdur Ext Rel), 120 MG PO QAM Lisinopril (Lisinopril), 20 MG PO BID Metoprolol Succ (Toprol Xl) (Toprol-Xl ), 100 MG PO DAILY Multivitamin (Multivitamin), 1 TABLET PO DAILY Nitroglycerin (Nitrostat), 0.4 MG UT PRN Rosuvastatin Calcium (Crestor), 20 MG PO DAILY Warfarin Sod (Jantoven), 2.5 MG PO DAILY [Flavonoid], 3 TABS PO DAILY Review of Systems Constitutional: + fatigue, + weakness Respiratory: No cough, No dyspnea at rest, No dyspnea on exertion, No hemoptysis, No problem reported, No shortness of breath, No sputum, No wheezing Cardiovascular: No PND, No chest pain, No claudication, No edema, No orthopnea , No palpitations, No problem reported Neurologic: + balance problems, + memory loss, + problem reported (confusion ) , + vertigo, + weakness Physical Exam Vital Signs Date Time Temp Pulse Resp B/P Pulse Ox O2 Delivery O2 Flow Rate FiO2 12/15/16 19:04 72 18 144/79 93 Room Air 12/15/16 18:23 81 12/15/16 18:11 36.7 73 18 151/76 95 Room Air General Appearance: no apparent distress Head: normocephalic, atraumatic Eyes: normal inspection, PERRL, EOMI, sclerae normal Neck: no JVD Respiratory/Chest: chest non-tender, lungs clear, normal breath sounds, no respiratory distress Cardiovascular: regular rate, rhythm Abdomen/GI: normal bowel sounds, non tender, soft Neurologic/Psych: no motor/sensory deficits, alert, oriented x 3 Skin: normal color, warm/dry, no rash Diagnostics Laboratory Results Results Past 24 Hours Test 12/15/16 00:00 12/15/16 18:30 12/15/16 19:03 12/15/16 19:10 Range/Units Urine Color YELLOW Urine Appearance CLEAR CLEAR Urine pH 5.5 4.5-7.5 Urine Specific [place] 1.003 1.000-1.030 Urine Protein NEG NEG Urine Glucose (UA) NEG NEG Urine Ketones NEG NEG Urine Occult Blood NEG NEG Urine Nitrite NEG NEG Urine Bilirubin NEG NEG Urine Urobilinogen NEG NEG Urine Leukocyte Esterase NEG NEG Urine WBC (Auto) 0 0-5 /hpf Urine RBC (Auto) 0-4 0-4 /hpf Urine Hyaline Casts (Auto) 0 0-5 /lpf Urine Epithelial Cells (Auto) 0-5 0-5 /lpf Urine Bacteria (Auto) NEG NEG White Blood Count 4.17 4.8-10.8 K/uL Red Blood Count 4.88 4.7-6.1 M/uL Hemoglobin 15.7 14.0-18.0 g/dL Hematocrit 43.5 42-52 % Mean Corpuscular Volume 89.1 80-100 fL Mean Corpuscular Hemoglobin 32.2 25-34 pg Mean Corpuscular Hemoglobin Concent 36.1 32-36 g/dl Platelet Count 218 130-400 K/uL Mean Platelet Volume 9.8 7.4-10.4 fL Neutrophils (%) (Auto) 62.9 % Lymphocytes (%) (Auto) 24.5 % Monocytes (%) (Auto) 8.6 % Eosinophils (%) (Auto) 3.6 % Basophils (%) (Auto) 0.2 % Neutrophils # (Auto) 2.62 1.4-6.5 K/uL Lymphocytes # (Auto) 1.02 1.2-3.4 K/uL Monocytes # (Auto) 0.36 0.11-0.59 K/uL Eosinophils # (Auto) 0.15 0-0.5 K/uL Basophils # (Auto) 0.01 0-0.2 K/uL RDW Standard Deviation 43.6 36.4-46.3 fL RDW Coefficient of Variation 13.4 11.5-14.5 % Immature Granulocyte % (Auto) 0.2 % Immature Granulocyte # (Auto) 0.01 0.00-0.02 K/uL Sodium Level 142 136-145 mmol/L Potassium Level 3.8 3.5-5.1 mmol/L Chloride Level 107 98-107 mmol/L Carbon Dioxide Level 24 21-32 mmol/L Anion Gap 11.0 3-11 mmol/L Blood Urea Nitrogen 6 7-18 mg/dl Creatinine 0.90 0.60-1.40 mg/dl Est Creatinine Clear Calc Drug Dose 73.5 ml/min Estimated GFR () 98.5 Estimated GFR (Non- 85.0 BUN/Creatinine Ratio 7.2 10-20 Random Glucose 158 70-99 mg/dl Calcium Level 9.2 8.5-10.1 mg/dl Total Bilirubin 0.4 0.2-1 mg/dl Direct Bilirubin 0.2 0-0.2 mg/dl Aspartate Amino Transf (AST/SGOT) 23 15-37 U/L Alanine Aminotransferase (ALT/SGPT) 27 12-78 U/L Alkaline Phosphatase 78 45-117 U/L Ammonia 29.0 11-32 umol/L Troponin I < 0.015 0-0.045 ng/ml Total Protein 8.1 6.4-8.2 gm/dl Albumin 4.4 3.4-5.0 gm/dl Ethyl Alcohol mg/dL 114.0 0-3 mg/dl Bedside Lactic Acid Venous 2.18 0.90-1.70 mmol/L Microbiology Results 12/15/16 Blood Culture, Received Pending 12/15/16 Blood Culture, Received Pending Diagnostic Radiology CT HEAD WITHOUT CONTRAST (CT) CLINICAL HISTORY: Acute change in mental status COMPARISON STUDY: 10/10/2016 TECHNIQUE: Axial CT of the brain is performed from the vertex to the skull base. IV contrast was not administered for this examination. CT DOSE: 601.98 mGy.cm FINDINGS: No intra or extra-axial mass lesions are visualized. There is no CT evidence of acute cortical infarction. There is no evidence of midline shift. There is no acute hemorrhage. No calvarial fractures are visualized. There are minimal white matter hypodensities likely on a small vessel basis. 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 There is no evidence of acute sinusitis. There are left supraclinoid carotid calcifications. IMPRESSION: No acute intracranial findings CHEST ONE VIEW PORTABLE CLINICAL HISTORY: Acute change in mental status COMPARISON STUDY: 09/28/2016 FINDINGS: The heart is borderline enlarged. There is no failure. There is no focal pulmonary consolidation. There are no pleural effusions. There is a stable area of linear atelectasis/scarring at the left lung base[ IMPRESSION: No active disease in the chest. CXR normal EKG Normal sinus rhythm , septal infract ( cited before jul 27 2016 ) Impression Assessment and Plan CONFUSION /HEADACHE : not sure of the etiology similar presentation on last admission 10/10/16 -to 10/12/16 CT head negative for Acute CVA pt was evaluated by Neurology Dr Villeda MRA of brain done last admission : 1. Mild narrowing with in the supraclinoid segment of the distal left ICA 2. 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 EEG ordered to R/O possible seizure Neurology eval requested ETOH INTAKE /DEPENDENCY ? pt mentions of drinking 2 beers a day presented with blood alcohol level of > 100 pt is counselled to quit drinking -high risk for fall and injury intoxicated status Ativan PRN for possible withdrawal ordered for Banana bag Gabapentin dose avoided for potential for sedation HX OF PAF /LEF RENAL AND SPLENIC INFRACT: remains in normal sinus on beta harley Chronic anticoagulation with Coumadin INR > 3 CAD : hx of NSTEMI on 2009 no complain of chest pain or SOB no ischemic change in EKG cont ASA/statin /beta harley /Imdur /lisinopril HTN : BP stable cont out pt meds HX OF CHRONIC CHF WITH DIASTOLIC DYSFUNCTION ECHO 12/2015 : EF 60-65 % , grade II diastolic dysfunction no evidence of vol over load cont ACEI FULL CODE DVT PROPHYLAXIS : INR elevated > 3 resume Coumadin when INR therapeutic DISPOSITION : lives at home with independent in daily activities PT/OT eval requested possible return home when medically stable Family physician Dr Jaswant Mosquera Level of Care Telemetry Resuscitation Status FULL RESUSCITATION VTE Prophylaxis Given or contraindicated: Warfarin (Coumadin) Additional Copies To Mario Mosquera MD
[2016-12-15] MEDS ORDERED: CYCL5TAB PO (20:13)
[2016-12-15 20:21] LABS: INR 3.9 (0.9-1.1); PROTHROMBIN TIME (PATIENT) 44.4 SECONDS (9.0-12.0)
[2016-12-15] MEDS ORDERED: ONDANSETRON INJ 2 MG/ML 2 ML VIAL IV PRN (20:30)
[2016-12-15] MEDS ORDERED: MULTI-VITAMIN INFUSION INJ 10 ML, THIAMINE HCL INJ 100 MG, FoLIC ACID INJ 1 MG in SODIU... IV ONE (20:30)
[2016-12-15] MEDS ORDERED: LORAZEPAM 2 MG/ML 1 ML VIAL IV PRN (20:30)
[2016-12-15] MEDS ORDERED: NITROGLYCERIN 0.4 MG SL PER TAB CHARGE SL PRN (20:30)
[2016-12-15] MEDS ORDERED: THIAMINE HCL INJ 100 MG in SYRINGE 9 ML IV ONE (20:45)
[2016-12-15 20:54] LABS: BENZODIAZEPINE, URINE NEG (NEG); COCAINE,URINE NEG (NEG); PHENCYCLIDINE, URINE NEG (NEG)
[2016-12-15 21:19] VITALS: BP 150/78; PULSE 67; TEMP 36.5; O2SAT 95
[2016-12-15 21:56] VITALS: BP 150/78; PULSE 67; TEMP 36.5; Ht 177.8 cm; Wt 64.5 kg
[2016-12-15] MEDS: D5W AND 1/2NSS 1,000 ML IV SCH (23:23)
[2016-12-15] MEDS: LISINOPRIL 20 MG TAB PO SCH (23:24)
[2016-12-16] VITALS (9 sets, daily range): BP systolic 120–163; BP diastolic 62–89; PULSE 58–95; TEMP 36.3–36.8; O2SAT 92–96
[2016-12-16 03:09] LABS: CKMB/CK RATIO 1.1 (0-3.0)
[2016-12-16 07:40] LABS: HEMATOCRIT 39.4 % (42-52); MEAN CELL VOLUME 87.6 fL (80-100); MEAN CORPUSCULAR HEMOGLOBIN 31.3 pg (25-34); MEAN CORPUSCULAR HGB CONC 35.8 g/dl (32-36); MEAN PLATELET VOLUME 9.6 fL (7.4-10.4); PLATELET COUNT 180 K/uL (130-400); WHITE BLOOD COUNT 3.56 K/uL (4.8-10.8)
[2016-12-16 07:56] LABS: PROTHROMBIN TIME (PATIENT) 43.8 SECONDS (9.0-12.0)
[2016-12-16 07:57] LABS: INR 3.9 (0.9-1.1)
[2016-12-16 08:11] LABS: BUN/CREATININE RATIO 7.2 (10-20); CALCIUM 8.4 mg/dl (8.5-10.1); CREATININE 0.81 mg/dl (0.60-1.40); MAGNESIUM 2.1 mg/dl (1.8-2.4); POTASSIUM 3.7 mmol/L (3.5-5.1)
[2016-12-16 08:14] LABS: CHOLESTEROL/HDL RATIO 2.9
[2016-12-16] MEDS ORDERED: FLAVONOID PO SCH (09:00)
[2016-12-16] MEDS ORDERED: POTASSIUM PHOS 3 MMOL/1 ML INFUSION IV STA (09:00)
[2016-12-16] MEDS: D5W AND 1/2NSS 1,000 ML IV SCH ×2 (09:01→16:40)
[2016-12-16] MEDS: MULTIVITAMIN TAB PO SCH (09:01)
[2016-12-16] MEDS: LISINOPRIL 20 MG TAB PO SCH ×2 (09:01→20:45)
[2016-12-16] MEDS: AMLODIPINE BESYLATE 5 MG TAB PO SCH (09:02)
[2016-12-16] MEDS: PANTOprazole SOD 40 MG TAB PO SCH (09:02)
[2016-12-16] MEDS: METOPROLOL SUCC 50MG EXT REL TAB PO SCH (09:02)
[2016-12-16] MEDS: ISOSORBIDE MONONITRATE 60 MG TABCR PO SCH (09:03)
--- NOTE | 2016-12-16 09:46 | DIAGNOSTIC IMAGING REPORT ---
CAROTID ARTERY ULTRASOUND CLINICAL HISTORY: Altered mental status. Evaluate for carotid stenosis. COMPARISON STUDY: MRA of the neck October 04, 2016. TECHNIQUE: Real-time, grayscale, and color Doppler sonography of the carotid and vertebral arteries was performed. Images were viewed in the transverse and longitudinal planes. FINDINGS: There is moderate atherosclerotic plaque. Velocity measurements are listed below. COMMON CAROTID PEAK SYSTOLIC VELOCITY (CM/S): RIGHT 88 LEFT 83 ICA PEAK SYSTOLIC VELOCITY (CM/S): RIGHT 83 LEFT 85 The systolic ratios between the internal to common carotid arteries are normal. Antegrade flow is seen in the vertebral arteries. The external carotid arteries are patent. Elevated velocities are noted within the bilateral external carotid arteries, left greater than right. The peak systolic velocity within the left external carotid artery is 282 cm/s. Blood pressure in the right arm measured 160/82. Blood pressure in the left arm measured 160/79. IMPRESSION: 1. Moderate atherosclerotic plaque without evidence of a hemodynamically significant stenosis within the cervical portions of the bilateral internal carotid arteries. 2. Findings suggestive of hemodynamically significant stenoses of the bilateral external carotid arteries, as shown on MRA of October 04, 2016. Electronically signed by: Trip Mckeon M.D. 12/16/2016 9:44 AM Dictated Date/Time: 12/16/2016 9:42 AM
[2016-12-16] MEDS ORDERED: POTASSIUM PHOSPHATE INJ 24 MMOL in SODIUM CHLORIDE 0.9% 500ML 500 ML IV SCH (10:00)
--- NOTE | 2016-12-16 12:28 | Progress Note ---
Internal Med Progress Note Date of Service: Dec 16, 2016. Provider Documentation: SUBJECTIVE: The patient was seen and examined Admitted with Severe headache and confusion No Neurological symptoms associated with it Happened after intake of Alcohol Has had prior episodes with unremarkable W/U including MRIs OBJECTIVE: Vital Signs-as noted below Exam: General-No distress at rest Eyes-normal ENT-normal Neck-supple Lungs-Clear to auscultate bilaterally Heart-Regular,no murmur Abdomen-Benign,no msses,bowel sound present Extremities-No edema Neuro-AAOx3 No focal neuro deficit Lab data as noted below. ASSESSMENT & PLAN: Severe Headache with Confusion No neurological symptoms associated with it Happened to be after taking Beer with high Alcohol level in blood Similar presentation on last admission 10/10/16 -to 10/12/16 CT head negative for Acute CVA Carotid US-External Carotid stenosis EEG-pending MRA of brain done last admission : 1. Mild narrowing with in the supraclinoid segment of the distal left ICA 2. 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 No evidence for occlusion within the [place] Neurology consulted Doubt any Stroke and or Seizures May have Atypical Migraine Clinically better ETOH Abuse /DEPENDENCY ? pt mentions of drinking 2 beers a day presented with blood alcohol level of > 100 pt is counselled to quit drinking -high risk for fall and injury intoxicated status Ativan PRN for possible withdrawal Gabapentin dose avoided for potential for sedation HX OF PAF /LEF RENAL AND SPLENIC INFRACT: Is in normal sinus Continue Beta harley Chronic anticoagulation with Coumadin INR > 3 CAD : H/O of NSTEMI on 2009 no complain of chest pain or SOB no ischemic change in EKG cont ASA/statin /beta harley /Imdur /lisinopril HTN : BP stable cont out pt meds HX OF CHRONIC CHF WITH DIASTOLIC DYSFUNCTION ECHO 12/2015 : EF 60-65 % , grade II diastolic dysfunction No evidence of vol over load Cont ACEI FULL CODE DVT PROPHYLAXIS : INR elevated > 3 resume Coumadin when INR therapeutic DISPOSITION : lives at home with independent in daily activities PT/OT eval requested possible return home when medically stable Family physician Dr Jaswant Mosquera Vital Signs: Date Time Temp Pulse Resp B/P Pulse Ox O2 Delivery O2 Flow Rate FiO2 12/16/16 11:52 36.6 68 18 143/75 94 Room Air 12/16/16 08:00 96 Room Air 12/16/16 07:35 36.6 69 18 163/84 96 Room Air 12/16/16 04:05 Room Air 12/16/16 03:45 36.8 71 20 163/89 95 Room Air 12/16/16 00:05 36.5 95 18 161/75 95 12/16/16 00:05 92 Room Air 12/15/16 21:56 36.5 67 18 150/78 Room Air 12/15/16 21:19 36.5 67 18 150/78 95 Room Air 12/15/16 20:32 72 18 147/86 92 Room Air 12/15/16 19:04 72 18 144/79 93 Room Air 12/15/16 18:23 81 12/15/16 18:11 36.7 73 18 151/76 95 Room Air Lab Results: Results Past 24 Hours Test 12/15/16 18:30 12/15/16 19:03 12/15/16 19:10 12/15/16 20:45 Range/Units White Blood Count 4.17 4.8-10.8 K/uL Red Blood Count 4.88 4.7-6.1 M/uL Hemoglobin 15.7 14.0-18.0 g/dL Hematocrit 43.5 42-52 % Mean Corpuscular Volume 89.1 80-100 fL Mean Corpuscular Hemoglobin 32.2 25-34 pg Mean Corpuscular Hemoglobin Concent 36.1 32-36 g/dl Platelet Count 218 130-400 K/uL Mean Platelet Volume 9.8 7.4-10.4 fL Neutrophils (%) (Auto) 62.9 % Lymphocytes (%) (Auto) 24.5 % Monocytes (%) (Auto) 8.6 % Eosinophils (%) (Auto) 3.6 % Basophils (%) (Auto) 0.2 % Neutrophils # (Auto) 2.62 1.4-6.5 K/uL Lymphocytes # (Auto) 1.02 1.2-3.4 K/uL Monocytes # (Auto) 0.36 0.11-0.59 K/uL Eosinophils # (Auto) 0.15 0-0.5 K/uL Basophils # (Auto) 0.01 0-0.2 K/uL RDW Standard Deviation 43.6 36.4-46.3 fL RDW Coefficient of Variation 13.4 11.5-14.5 % Immature Granulocyte % (Auto) 0.2 % Immature Granulocyte # (Auto) 0.01 0.00-0.02 K/uL Prothrombin Time 44.4 9.0-12.0 SECONDS Prothromb Time International Ratio 3.9 0.9-1.1 Activated Partial Thromboplast Time 48.3 21.0-31.0 SECONDS Partial Thromboplastin Ratio 1.9 D-Dimer < 190 0-500 ug/L FEU Sodium Level 142 136-145 mmol/L Potassium Level 3.8 3.5-5.1 mmol/L Chloride Level 107 98-107 mmol/L Carbon Dioxide Level 24 21-32 mmol/L Anion Gap 11.0 3-11 mmol/L Blood Urea Nitrogen 6 7-18 mg/dl Creatinine 0.90 0.60-1.40 mg/dl Est Creatinine Clear Calc Drug Dose 73.5 ml/min Estimated GFR () 98.5 Estimated GFR (Non- 85.0 BUN/Creatinine Ratio 7.2 10-20 Random Glucose 158 70-99 mg/dl Calcium Level 9.2 8.5-10.1 mg/dl Total Bilirubin 0.4 0.2-1 mg/dl Direct Bilirubin 0.2 0-0.2 mg/dl Aspartate Amino Transf (AST/SGOT) 23 15-37 U/L Alanine Aminotransferase (ALT/SGPT) 27 12-78 U/L Alkaline Phosphatase 78 45-117 U/L Ammonia 29.0 11-32 umol/L Troponin I < 0.015 0-0.045 ng/ml Total Protein 8.1 6.4-8.2 gm/dl Albumin 4.4 3.4-5.0 gm/dl Ethyl Alcohol mg/dL 114.0 0-3 mg/dl Bedside Lactic Acid Venous 2.18 0.90-1.70 mmol/L Vitamin B12 Level 269 211-911 pg/mL Folate 10.03 >5.38 ng/mL Test 12/16/16 00:30 12/16/16 02:31 12/16/16 07:17 12/16/16 10:35 Range/Units Lactic Acid Level 1.3 1.4 0.4-2.0 mmol/L Total Creatine Kinase 92 81 39-308 U/L Creatine Kinase MB 1.0 0.8 0.5-3.6 ng/ml Creatine Kinase MB Ratio 1.1 1.0 0-3.0 Troponin I < 0.015 < 0.015 0-0.045 ng/ml White Blood Count 3.56 4.8-10.8 K/uL Red Blood Count 4.50 4.7-6.1 M/uL Hemoglobin 14.1 14.0-18.0 g/dL Hematocrit 39.4 42-52 % Mean Corpuscular Volume 87.6 80-100 fL Mean Corpuscular Hemoglobin 31.3 25-34 pg Mean Corpuscular Hemoglobin Concent 35.8 32-36 g/dl RDW Standard Deviation 42.5 36.4-46.3 fL RDW Coefficient of Variation 13.2 11.5-14.5 % Platelet Count 180 130-400 K/uL Mean Platelet Volume 9.6 7.4-10.4 fL Erythrocyte Sedimentation Rate 7 0-14 mm/hr Prothrombin Time 43.8 9.0-12.0 SECONDS Prothromb Time International Ratio 3.9 0.9-1.1 Sodium Level 144 136-145 mmol/L Potassium Level 3.7 3.5-5.1 mmol/L Chloride Level 109 98-107 mmol/L Carbon Dioxide Level 25 21-32 mmol/L Anion Gap 10.0 3-11 mmol/L Blood Urea Nitrogen 6 7-18 mg/dl Creatinine 0.81 0.60-1.40 mg/dl Est Creatinine Clear Calc Drug Dose 75.6 ml/min Estimated GFR () 102.9 Estimated GFR (Non- 88.8 BUN/Creatinine Ratio 7.2 10-20 Random Glucose 119 70-99 mg/dl Calcium Level 8.4 8.5-10.1 mg/dl Phosphorus Level 2.0 2.5-4.9 mg/dl Magnesium Level 2.1 1.8-2.4 mg/dl Triglycerides Level 111 0-150 mg/dl Cholesterol Level 170 0-200 mg/dl HDL Cholesterol 59 mg/dl LDL Cholesterol, Calculated 89 mg/dl VLDL Cholesterol, Calculated 22 mg/dl Cholesterol/HDL Ratio 2.9 Test 12/16/16 11:35 Range/Units Microbiology Results 12/15/16 Blood Culture, Received Pending 12/15/16 Blood Culture, Received Pending
[2016-12-16] MEDS ORDERED: GADAVIST IV PRN (16:00)
--- NOTE | 2016-12-16 17:36 | NEUROLOGY CONSULTATION ---
DATE OF CONSULTATION: 12/16/2016 REASON FOR CONSULTATION: Confusional episode. HISTORY OF PRESENT ILLNESS: This 71-year-old with coronary artery disease, splenic and renal infarct, hypertension, hyperlipidemia, on Coumadin, brought to the ER because of confusional episode. The patient had been in the hospital on several occasions about 2 months ago for fairly severe headache and his workup was essentially noncontributory. The patient generally does not eat well and had a cup of coffee in the morning, had 2 cans of beer in the morning then went out to a club and had may be 2 more beers, came home, did not appear overtly confused or intoxicated. He came into the kitchen, appeared not to know what to do. He took the ashes out of a stove and went out on to the porch, again did not seem to know what he wanted to do, came back in the kitchen, dropped the tools, was awake, but essentially there was very little spontaneous speech. He sat down and appeared confused for several hours thereafter which gradually improved, perhaps over 2 hours. When he was in the Emergency Room, he was doing some pointing at items, pointed to his head and his chin and was asked if he had a headache and at that time he said he had had a headache, although was somewhat eventually admitting that it was somewhat different than the bursting headache pain that he had had previously and was in the left temporal region. His did not observe any focal neurologic deficits. He did not appear sweaty, shaky or pale. Upon arrival to the Emergency Room, per the admitting physician his confusion had resolved and his headache had persisted. A CT of the head showed no acute infarct changes. There is an old right occipital infarction. His lab data was notable for an alcohol level of 114, otherwise negative tox screen. His white count was 4.17, H\T\H 15/43, platelet 218, sed rate 7. INR 3.9. Chemistry profile notable for a glucose of 158, normal transaminases. Urinalysis negative and toxicology positive as noted above. His electrocardiogram was a sinus rhythm with a septal infarct. On admission temperature 36.7, 73, 18, 151/76, 95%. PAST MEDICAL HISTORY: Notable for coronary artery disease, anterolateral STEMI status post POBA to LAD diagonal artery occlusion, carotid stenosis by report, although our study showed no evidence of hemodynamically significant stenosis, although there was stenosis of the bilateral external carotid arteries. Diastolic congestive heart failure, dyslipidemia, reflux, hypertension, renal and splenic infarct, osteoporosis, severe atherosclerotic plaques of the aortic arch and descending aorta. He has had a total hip replacement. FAMILY HISTORY: Mother had stroke. SOCIAL HISTORY: Remote smoker. Drinks alcohol, no recent major decline in alcohol intake, although at that time he was placed on Coumadin in July he did decline in intake. He is retired. ALLERGIES: No allergies. HOME MEDICATIONS: Alendronate, amlodipine, aspirin, cyclobenzaprine, ergocalciferol, Nexium, Imdur, lisinopril, metoprolol, multiple vitamin, Nitrostat, Crestor, warfarin, and flavonoid for tinnitus. None of which were new or changed in dose. His weight has been stable. He has not had any jaw claudication. He has had some nonradiating neck pain. He has not had any rashes. He did strike his head on the car getting out of the car on the way home from the [employer] club. He has no chest pain, claudication, orthopnea, palpitations. His indicates his memory is reasonably good. PHYSICAL EXAMINATION: He is awake and alert. He is a somewhat inconsistent historian. There is no aphasia, no right/left confusion. His head is normocephalic, atraumatic. There is no temporal artery tenderness, good temporal artery pulsations are noted. There are no carotid bruits. Radial pulses are intact. There is no calf swelling or tenderness. Abdomen is mildly distended but soft. Pupils are myotic, but reactive. I could not visualize the optic nerve secondary to noncooperation. There were normal coyne, motility, facial sensation, facial symmetry. Speech and language were normal. There is no resting tremor, cogwheel rigidity. Bulk and tone are normal. Strength is full. There is no drift. Normal rapid alternating movements. Reflexes are symmetric. Toes are downgoing. Gutjxt-sy-jifp and becw-rn-ruym are normal. There is intact light touch, temperature and vibration bilaterally. IMPRESSION: The patient with a confusional episode of sudden onset without lateralizing signs and symptoms, query partial complex seizure; query confusional migraine which would be very unusual at this patient's age; query transient ischemic attack; query alcohol intoxication, I doubt that that is the case given that this came on suddenly and the patient had already been home for several hours and did not appear to be intoxicated nor confused. The recommendation is an MRI of the brain with and without contrast and an EEG. I have reviewed his prior MRI, MRA, report of his MRV, report of his cervical MRI. We will follow with you. RICKY
--- NOTE | 2016-12-16 17:45 | DIAGNOSTIC IMAGING REPORT ---
Brain MRI WITH AND WITHOUT CONTRAST HISTORY: confusional episode poss seizure, headache TECHNIQUE: Multiplanar multisequence MRI of the brain was performed both before and after the intravenous administration of contrast. COMPARISON STUDY: Head CT 12/15/2016. Brain MRI 10/04/2016. FINDINGS: There is no mass, hematoma, midline shift, or acute infarct. The paranasal sinuses are clear. The mastoid or cells are clear. The ventricles and sulci demonstrate mild age-related involutional changes. The major vascular flow voids at the skull base are well-maintained. No change in the 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. Small focal increased T2 signal within the left parietal subcortical white matter remains unchanged. This also likely represents an old infarct. The temporal lobes remain stable. No abnormal enhancement. IMPRESSION: No significant change compared to the prior study. No acute intracranial abnormality. Old infarcts as described above. Electronically signed by: Kenrick Ponce M.D. 12/16/2016 5:43 PM Dictated Date/Time: 12/16/2016 5:35 PM
[2016-12-16] MEDS: THIAMINE HCL INJ 100 MG in SYRINGE 9 ML IV SCH (20:44)
[2016-12-17] VITALS (8 sets, daily range): BP systolic 121–163; BP diastolic 73–84; PULSE 57–63; TEMP 36.4–36.7; O2SAT 94–97
[2016-12-17] MEDS: D5W AND 1/2NSS 1,000 ML IV SCH ×2 (04:00→14:13)
[2016-12-17 06:52] LABS: INR 2.4 (0.9-1.1); PROTHROMBIN TIME (PATIENT) 26.9 SECONDS (9.0-12.0)
[2016-12-17 07:14] LABS: MAGNESIUM 2.3 mg/dl (1.8-2.4); PHOSPHORUS 2.3 mg/dl (2.5-4.9)
[2016-12-17] MEDS ORDERED: CEPH500C2 PO (07:59)
[2016-12-17] MEDS: LISINOPRIL 20 MG TAB PO SCH ×2 (08:45→20:58)
[2016-12-17] MEDS: METOPROLOL SUCC 50MG EXT REL TAB PO SCH (08:45)
[2016-12-17] MEDS: MULTIVITAMIN TAB PO SCH (08:46)
[2016-12-17] MEDS: ISOSORBIDE MONONITRATE 60 MG TABCR PO SCH (08:46)
[2016-12-17] MEDS: AMLODIPINE BESYLATE 5 MG TAB PO SCH (08:46)
[2016-12-17] MEDS: PANTOprazole SOD 40 MG TAB PO SCH (09:18)
--- NOTE | 2016-12-17 13:51 | ELECTROENCEPHALOGRAPH REPORT ---
REQUESTING: Dr. Jaramillo. CLINICAL DIAGNOSIS: Possible seizures. EEG DIAGNOSIS: Essentially normal during wakefulness. DESCRIPTION OF TRACING: This EEG was done as a bedside recording and has a number of muscle movement artifacts which are nicely captured by simultaneous video analysis of patient movement and behavior. These disappear as the tracing goes on and most of the recording is quite interpretable. Photic stimulation was performed. Hyperventilation was not. Drowsiness and light sleep were not obtained. During wakefulness, there is evidence for what appears to be a normal background rhythm in the alpha range of up to 10 Hz of maximum frequency and 30 microvolts of maximum amplitude. This is maximum posterior head regions and bilaterally symmetrical. Polymorphic mid frequency theta activity is seen over all head regions without clear focal or regional predominance. Anterior head region maximum bilaterally symmetrical low voltage fast activity in the beta range is present. Photic stimulation provokes a minimal driving response without a photoparoxysmal or photomyogenic component. At no time during the waking tracing is there evidence for potentially epileptogenic activity in the form of polyspike or spike wave bursts, focal sharp waves or focal spikes. INTERPRETATION: This EEG is essentially normal during wakefulness without evidence for focal or generalized encephalopathy and without evidence for potentially epileptogenic activity.
--- NOTE | 2016-12-17 17:37 | Progress Note ---
Internal Med Progress Note Date of Service: Dec 17, 2016. Provider Documentation: SUBJECTIVE: The patient was seen and examined Admitted with Severe headache and confusion No Neurological symptoms associated with it Happened after intake of Alcohol Has had prior episodes with unremarkable W/U including MRIs Clinically stable -denies any symptoms OBJECTIVE: Vital Signs-as noted below Exam: General-No distress at rest Eyes-normal ENT-normal Neck-supple Lungs-Clear to auscultate bilaterally Heart-Regular,no murmur Abdomen-Benign,no masses,bowel sound present Extremities-No edema Neuro-AAOx3 No focal neuro deficit NO tremors Lab data as noted below. ASSESSMENT & PLAN: Severe Headache with Confusion No neurological symptoms associated with it Happened to be after taking Beer with high Alcohol level in blood Similar presentation on last admission 10/10/16 -to 10/12/16 CT head negative for Acute CVA Carotid US-External Carotid stenosis EEG-negative for any seizure activity MRA of brain done last admission : 1. Mild narrowing with in the supraclinoid segment of the distal left ICA 2. 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 No evidence for occlusion within the [place] Neurology consulted Doubt any Stroke and or Seizures May have Atypical Migraine Repeat MRI -negative for any lesion ETOH Abuse /DEPENDENCY ? pt mentions of drinking 2 beers a day presented with blood alcohol level of > 100 pt is counselled to quit drinking -high risk for fall and injury intoxicated status Ativan PRN for possible withdrawal Gabapentin dose avoided for potential for sedation No signs or symptoms of withdrawal HX OF PAF /LEF RENAL AND SPLENIC INFRACT: Is in normal sinus Continue Beta harley Chronic anticoagulation with Coumadin INR > 3 Restart Coumadin CAD : H/O of NSTEMI on 2009 no complain of chest pain or SOB no ischemic change in EKG cont ASA/statin /beta harley /Imdur /lisinopril HTN : BP stable cont out pt meds HX OF CHRONIC CHF WITH DIASTOLIC DYSFUNCTION ECHO 12/2015 : EF 60-65 % , grade II diastolic dysfunction No evidence of vol over load Cont ACEI FULL CODE DVT PROPHYLAXIS : INR elevated > 3 resume Coumadin when INR therapeutic DISPOSITION : lives at home with independent in daily activities PT/OT eval requested possible return home when medically stable Family physician Dr Jaswant Mosquera Likely home in a day or two Vital Signs: Date Time Temp Pulse Resp B/P Pulse Ox O2 Delivery O2 Flow Rate FiO2 12/17/16 16:14 36.6 59 16 149/77 97 Room Air 12/17/16 16:00 97 Room Air 12/17/16 12:00 Room Air 12/17/16 11:30 36.7 57 16 127/73 94 Room Air 12/17/16 08:00 Room Air 12/17/16 07:45 36.6 59 16 163/84 97 Room Air 12/17/16 04:05 36.4 57 18 145/80 94 12/17/16 04:05 Room Air 12/17/16 00:11 36.5 59 18 129/77 96 Room Air 12/17/16 00:05 Room Air 12/16/16 20:05 Room Air 12/16/16 19:35 36.3 58 20 124/68 94 Room Air Lab Results: Results Past 24 Hours Test 12/17/16 06:20 Range/Units Prothrombin Time 26.9 9.0-12.0 SECONDS Prothromb Time International Ratio 2.4 0.9-1.1 Phosphorus Level 2.3 2.5-4.9 mg/dl Magnesium Level 2.3 1.8-2.4 mg/dl
--- NOTE | 2016-12-17 17:58 | Neurology Progress Notes ---
Neurology Progress Note Date of Service Dec 17, 2016. Quentin Morales is a 71 year old male with a PMH CAD, splenic and renal infarct, HTN, DL, on coumadin. he was brought to ED due to confusion. He has been seen by our service on 2 occasions in the past few months. He was seen at that time for severe headache with sudden onset. He had 2 cans of beer in the morning and went to his camp and had 2 more beers came home not appear overtly confused. Today he is complaining that he was brought in for sudden onset headache. today he states he is feeling well with no headache symptoms. denies CP, SOB, abdominal pain, weakness, numbness tingling. Objective Date Time Temp Pulse Resp B/P Pulse Ox O2 Delivery O2 Flow Rate FiO2 12/17/16 16:14 36.6 59 16 149/77 97 Room Air 12/17/16 16:00 97 Room Air 12/17/16 12:00 Room Air 12/17/16 11:30 36.7 57 16 127/73 94 Room Air 12/17/16 08:00 Room Air 12/17/16 07:45 36.6 59 16 163/84 97 Room Air 12/17/16 04:05 36.4 57 18 145/80 94 12/17/16 04:05 Room Air 12/17/16 00:11 36.5 59 18 129/77 96 Room Air 12/17/16 00:05 Room Air 12/16/16 20:05 Room Air 12/16/16 19:35 36.3 58 20 124/68 94 Room Air Last 24 Hours Test 12/17/16 06:20 Prothrombin Time 26.9 SECONDS Prothromb Time International Ratio 2.4 Phosphorus Level 2.3 mg/dl Magnesium Level 2.3 mg/dl Imaging: no new imaging Exam: Physical Exam: Constitutional: appearance nourished, healthy and normal Ears, Nose, Mouth and Throat: mucous membranes moist, no injection and skin normal, eyes normal Cardiovascular: normal S-1 and S-2 and regular rate and rhythm Respiratory: clear to auscultation (CTA) and no rales, rhonchi or wheeze Musculoskeletal: no peripheral edema and good distal pulses Skin: no stigmata of neurocutaneous disease noted and normal and intact Eyes: extraocular muscles intact (EOMI) and pupils equal, round and reactive to light (PERRL) NEUROLOGIC EXAMINATION: Mental status: Alert and interactive Oriented to full date and location Oriented to person Speech fluent with no evidence of aphasia Cranial Nerves smile and eye brow raise symmetric, tongue midline Reflexes: Deep tendon reflexes were symmetrical and graded 2/5. Plantar responses were flexor. Sensory: cool and light touch intact Coordination: finger to nose without bi pass Gait/Stance: sitting in bed Motor: Negative for pronator drift of out stretched arms with eyes closed. 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 5/5 bilaterally, hip flex plantar flex ext 5/5 bilaterally Current Inpatient Medications Medications (Trade) Dose Ordered Sig/Eliud Route Start Time Stop Time Status Last Admin Dose Admin Dextrose/Sodium Chloride 1,000 ml @ 100 mls/hr Q10H IV 12/15/16 21:30 01/14/17 21:29 12/17/16 14:13 100 MLS/HR Thiamine HCl/ Syringe (Vitamin B-1 Inj/ Syringe) 10 ml @ 2 mls/min Q24H IV 12/16/16 20:00 01/15/17 19:59 12/16/16 20:44 2 MLS/MIN Lorazepam (Ativan Inj) 1 mg Q1H PRN IV 12/15/16 20:30 01/14/17 20:29 Ondansetron HCl (Zofran Inj) 4 mg Q6H PRN IV 12/15/16 20:30 01/14/17 20:29 Nitroglycerin (Nitrostat Tab) 0.4 mg UD PRN SL 12/15/16 20:30 01/14/17 20:29 Isosorbide Mononitrate (Imdur Ext Rel Tab) 120 mg QAM PO 12/16/16 09:00 01/15/17 08:59 12/17/16 08:46 120 MG Lisinopril (Zestril Tab) 20 mg BID PO 12/15/16 21:00 01/14/17 20:59 12/17/16 08:45 20 MG Metoprolol Succinate (Toprol Xl Tab) 100 mg DAILY PO 12/16/16 09:00 01/15/17 08:59 12/17/16 08:45 100 MG Multivitamins (Multivitamin Tab) 1 tab DAILY PO 12/16/16 09:00 01/15/17 08:59 12/17/16 08:46 1 TAB Amlodipine Besylate (Norvasc Tab) 10 mg DAILY PO 12/16/16 09:00 01/15/17 08:59 12/17/16 08:46 10 MG Pantoprazole Sodium (Protonix Tab) 40 mg DAILY PO 12/16/16 09:00 01/15/17 08:59 12/17/16 09:18 40 MG Folic Acid (Folvite Tab) 1 mg QAM PO 12/16/16 09:00 01/15/17 08:59 12/17/16 08:45 1 MG Gadobutrol (Gadavist) 7 mmol UD PRN IV 12/16/16 16:00 12/20/16 15:59 Gabapentin (Neurontin Cap) 100 mg HS PO 12/17/16 21:00 01/16/17 20:59 Impression 71 year old with confusion -resolved and severe headache- resolved Plan 1. PT/OT for discharge needs 2. start Neurontin 100 mg hs x 1 week then increase to BID 3. restart coumadin per cardiology recommendations 4. ok to discharge once medically stable 5. will see in our office in 3-4 weeks Jailene Almazan PAC schedule I have seen and discussed above patient care and management with Jailene Jaramillo, neurology
[2016-12-17] MEDS: THIAMINE HCL INJ 100 MG in SYRINGE 9 ML IV SCH (19:46)
[2016-12-17] MEDS ORDERED: GABAPENTIN 100 MG CAP PO SCH (21:00)
[2016-12-18 00:07] VITALS: BP 146/78; PULSE 62; TEMP 36.5; O2SAT 96
[2016-12-18] MEDS: D5W AND 1/2NSS 1,000 ML IV SCH (00:13)
[2016-12-18 04:09] VITALS: BP 153/85; PULSE 62; TEMP 36.5; O2SAT 96
[2016-12-18 06:40] LABS: HEMATOCRIT 41.5 % (42-52); MEAN CELL VOLUME 88.7 fL (80-100); MEAN CORPUSCULAR HEMOGLOBIN 32.5 pg (25-34); MEAN CORPUSCULAR HGB CONC 36.6 g/dl (32-36); MEAN PLATELET VOLUME 9.5 fL (7.4-10.4); PLATELET COUNT 167 K/uL (130-400); RED BLOOD COUNT 4.68 M/uL (4.7-6.1); WHITE BLOOD COUNT 3.87 K/uL (4.8-10.8)
[2016-12-18 06:58] LABS: BUN/CREATININE RATIO 10.5 (10-20); CALCIUM 8.6 mg/dl (8.5-10.1); CREATININE 0.94 mg/dl (0.60-1.40); MAGNESIUM 2.2 mg/dl (1.8-2.4); POTASSIUM 3.9 mmol/L (3.5-5.1)
[2016-12-18 06:59] LABS: PHOSPHORUS 2.5 mg/dl (2.5-4.9)
[2016-12-18 07:20] LABS: INR 1.6 (0.9-1.1); PROTHROMBIN TIME (PATIENT) 17.3 SECONDS (9.0-12.0)
[2016-12-18] MEDS: LISINOPRIL 20 MG TAB PO SCH (07:54)
[2016-12-18] MEDS: METOPROLOL SUCC 50MG EXT REL TAB PO SCH (07:55)
[2016-12-18] MEDS: PANTOprazole SOD 40 MG TAB PO SCH (07:55)
[2016-12-18] MEDS: ISOSORBIDE MONONITRATE 60 MG TABCR PO SCH (07:55)
[2016-12-18] MEDS: AMLODIPINE BESYLATE 5 MG TAB PO SCH (07:55)
[2016-12-18] MEDS: MULTIVITAMIN TAB PO SCH (07:55)
[2016-12-18 08:10] VITALS: BP 153/78; PULSE 56; TEMP 36.7; O2SAT 95
--- NOTE | 2016-12-18 09:55 | Progress Note ---
Internal Med Progress Note Date of Service: Dec 18, 2016. Provider Documentation: SUBJECTIVE: The patient was seen and examined Admitted with Severe headache and confusion No more episode and denies any symptoms Remains stable since admission Discharge today OBJECTIVE: Vital Signs-as noted below Exam: General-No distress at rest Eyes-normal ENT-normal Neck-supple Lungs-Clear to auscultate bilaterally Heart-Regular,no murmur Abdomen-Benign,no masses,bowel sound present Extremities-No edema Neuro-AAOx3 No focal neuro deficit NO tremors Lab data as noted below. ASSESSMENT & PLAN: Severe Headache with Confusion-Resolved No neurological symptoms associated with it Happened to be after taking Beer with high Alcohol level in blood Similar presentation on last admission 10/10/16 -to 10/12/16 CT head negative for Acute CVA Carotid US-External Carotid stenosis EEG-negative for any seizure activity MRA of brain done last admission : 1. Mild narrowing with in the supraclinoid segment of the distal left ICA 2. 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 No evidence for occlusion within the [place] Neurology consulted -appreciate input and recommendation Doubt any Stroke and or Seizures May have Atypical Migraine Repeat MRI -negative for any lesion Neurontin started OP appointment ETOH Abuse /DEPENDENCY ? pt mentions of drinking 2 beers a day presented with blood alcohol level of > 100 pt is counselled to quit drinking -high risk for fall and injury intoxicated status Ativan PRN for possible withdrawal Gabapentin dose avoided for potential for sedation No signs or symptoms of withdrawal Doubt any significant issue with Alcohol HX OF PAF /LEF RENAL AND SPLENIC INFRACT: Is in normal sinus Continue Beta harley Chronic anticoagulation with Coumadin INR > 3 Restart Coumadin Coumadin clinic as an OP CAD : H/O of NSTEMI on 2009 no complain of chest pain or SOB no ischemic change in EKG cont ASA/statin /beta harley /Imdur /lisinopril HTN : BP stable cont out pt meds HX OF CHRONIC CHF WITH DIASTOLIC DYSFUNCTION ECHO 12/2015 : EF 60-65 % , grade II diastolic dysfunction No evidence of vol over load Cont ACEI FULL CODE DVT PROPHYLAXIS : INR elevated > 3 resume Coumadin when INR therapeutic DISPOSITION : lives at home with independent in daily activities PT/OT eval requested possible return home when medically stable Family physician Dr Jaswant Mosquera Discharge home today Vital Signs: Date Time Temp Pulse Resp B/P Pulse Ox O2 Delivery O2 Flow Rate FiO2 12/18/16 10:23 36.7 56 20 95 Room Air 12/18/16 08:10 36.7 56 20 153/78 95 12/18/16 08:00 Room Air 12/18/16 04:09 36.5 62 16 153/85 96 Room Air 12/18/16 04:05 Room Air 12/18/16 00:07 36.5 62 18 146/78 96 Room Air 12/18/16 00:05 Room Air 12/17/16 20:01 36.6 63 16 121/75 94 Room Air 12/17/16 20:00 94 Room Air 12/17/16 16:14 36.6 59 16 149/77 97 Room Air 12/17/16 16:00 97 Room Air Lab Results: Results Past 24 Hours Test 12/18/16 06:30 Range/Units White Blood Count 3.87 4.8-10.8 K/uL Red Blood Count 4.68 4.7-6.1 M/uL Hemoglobin 15.2 14.0-18.0 g/dL Hematocrit 41.5 42-52 % Mean Corpuscular Volume 88.7 80-100 fL Mean Corpuscular Hemoglobin 32.5 25-34 pg Mean Corpuscular Hemoglobin Concent 36.6 32-36 g/dl RDW Standard Deviation 43.0 36.4-46.3 fL RDW Coefficient of Variation 13.4 11.5-14.5 % Platelet Count 167 130-400 K/uL Mean Platelet Volume 9.5 7.4-10.4 fL Prothrombin Time 17.3 9.0-12.0 SECONDS Prothromb Time International Ratio 1.6 0.9-1.1 Sodium Level 141 136-145 mmol/L Potassium Level 3.9 3.5-5.1 mmol/L Chloride Level 108 98-107 mmol/L Carbon Dioxide Level 27 21-32 mmol/L Anion Gap 6.0 3-11 mmol/L Blood Urea Nitrogen 10 7-18 mg/dl Creatinine 0.94 0.60-1.40 mg/dl Est Creatinine Clear Calc Drug Dose 64.8 ml/min Estimated GFR () 93.5 Estimated GFR (Non- 80.7 BUN/Creatinine Ratio 10.5 10-20 Random Glucose 121 70-99 mg/dl Calcium Level 8.6 8.5-10.1 mg/dl Phosphorus Level 2.5 2.5-4.9 mg/dl Magnesium Level 2.2 1.8-2.4 mg/dl
[2016-12-18] MEDS ORDERED: NRN100 PO (10:06)
--- NOTE | 2016-12-18 10:08 | Discharge Instructions ---
Discharge Instructions Date of Service Dec 18, 2016. Admission Reason for Admission: Change In Mental Status Discharge Discharge Diagnosis / Problem: Acute Confusion-resolved,Severe Headache- resolved Discharge Goals Goal(s): Prevent Disease Progression Activity Recommendations Activity Limitations: resume your previous activity . Instructions / Follow-Up Instructions / Follow-Up Dr Mosquera on 12/21/16 at 11:10AM.Please keep follow up with Coagulation clinic Current Hospital Diet Patient's current hospital diet: AHA Diet (Heart Healthy) Discharge Diet Recommended Diet: AHA Diet (Heart Healthy) Pending Studies Studies pending at discharge: no Laboratory Results Lipid Panel Test 12/16/16 07:17 Range/Units Triglycerides Level 111 0-150 mg/dl Cholesterol Level 170 0-200 mg/dl HDL Cholesterol 59 mg/dl Cholesterol/HDL Ratio 2.9 LDL Cholesterol, Calculated 89 mg/dl Medical Emergencies . Who to Call and When: Medical Emergencies: If at any time you feel your situation is an emergency, please call 911 immediately. . Non-Emergent Contact Non-Emergency issues call your: Primary Care Provider . Past History Medical & Surgical History: (1) Dizziness (2) Confusion (3) CAD (coronary artery disease) (4) HTN (hypertension) (5) GERD (gastroesophageal reflux disease) (6) Diastolic CHF (7) Headache (8) Carotid stenosis (9) Dyslipidemia . "Provider Documentation" section prepared by Roxi Chaves. VTE Core Measure Inpt VTE Proph given/why not?: Warfarin (Coumadin)
[2016-12-18 10:23] VITALS: BP 153/78; PULSE 56; TEMP 36.7; O2SAT 95
--- NOTE | 2016-12-18 12:22 | Discharge Summary ---
Discharge Summary Date of Service Dec 18, 2016. Discharge Summary Admission Date: Dec 15, 2016 at 20:18 Discharge Date: Dec 18, 2016 Discharge Disposition: Home Principal Diagnosis: Acute Confusion-resolved,Severe Headache-resolved Secondary Diagnoses/Problems: Please see H&P and Hospital Progress note Consultations: Neurology Medication Reconciliation New Medications: Gabapentin (Gabapentin) 100 Mg Cap 100 MG PO HS for 30 Days, #50 CAP 100 mg PO HS for 1 week and then 100 BID Continued Medications: Alendronate Sodium (Alendronate Sodium) 70 Mg Tab 70 MG PO 1XWK, #4 TAKE 70 MG ONCE A WEEK Amlodipine Besylate (Amlodipine Besylate) 10 Mg Tab 10 MG PO DAILY Aspirin (Aspir-81) 81 Mg Tab 81 MG PO DAILY, TAB 3 Refills Cephalexin Monohydrate (Keflex) 500 Mg Cap 500 MG PO TID, #30 CAP Cyclobenzaprine Hcl (Flexeril) 5 Mg Tab 5 MG PO BID, TAB PRN Ergocalciferol (Vitamin D) 50,000 Interunit Cap 93496 UNITS PO 1XWK, #12 TAKE 38904 UNITS OF VITAMIN D ONCE A WEEK FOR 12 WEEKS Esomeprazole Magnesium (Nexium) 40 Mg Capcr 40 MG PO DAILY, 0 Refills Isosorbide Mononitrate Ext Rel (Imdur Ext Rel) 120 Mg Ertab 120 MG PO QAM, 0 Refills Lisinopril (Lisinopril) 20 Mg Tab 20 MG PO BID, #90 Metoprolol Succ (Toprol Xl) (Toprol-Xl ) 100 Mg Tabcr 100 MG PO DAILY, 0 Refills Multivitamin (Multivitamin) Tab 1 TABLET PO DAILY, 0 Refills Nitroglycerin (Nitrostat) 0.4 Mg Sub 0.4 MG UT PRN, SUB NEEDED FOR CHEST PAIN : ONE TABLET UNDER THE TONGUE EVERY 5 MINUTES UP TO 3 DOSES. Rosuvastatin Calcium (Crestor) 40 Mg Tab 20 MG PO DAILY Warfarin Sod (Jantoven) 5 Mg Tab 2.5 MG PO DAILY, TAB [Flavonoid] () 3 TABS PO DAILY Admission Information HPI (per Admitting provider): 114 This is 71 yo M with PMHx of CAD , PAF, HTN , Hyperlipidemia , hx of Left renal and splenic infract on chronic anticoagulation with Coumadin brought the ED by as pt was found to be confused , disoriented earlier today . As per pt was fine this morning , did his regular chores , when to the [place] around 2 pm had some beer with friends , came home approx 4 pm , was found to be confused , pt mentions of bumping his head on the car door as he attempt to get out . on arrival his activity was normal , sat down , turned on the TV , few minutes later he was standing dazed in the kitchen . was making supper -called his name several times but pt did not seem to hear , he took paint brush and went out to [place] , appears to be he did not know what to do, came back to kitchen , dropped the tools not able to respond to name calling, complains that he is having severe headache as if ( his head will burst ) , felt dizzy and lightheaded on arrival to ED his symptom of confusion was resolved, still having headache mostly localized to left side of head , no blurred vision , no weakness or paresthesia CT head w/out contrast negative for acute change INR 3.7 ammonia , LFT level wnl Blood alcohol level 114 pt denies of any chest pain , SOB ,palpitation Past Medical/Surgical History Medical Problems: (1) CAD (coronary artery disease) Permanent Comment: 2009 - NSTEMI 2012 - anterolateral STEMI, s/p POBA to LAD diagonal artery occlusion Status: Chronic (2) Carotid stenosis Status: Chronic (3) Diastolic CHF Permanent Comment: echo 12/2015 - EF 60-65%, grade II diastolic dysfunction Status: Chronic (4) Dyslipidemia Status: Chronic (5) GERD (gastroesophageal reflux disease) Status: Chronic (6) HTN (hypertension) Status: Chronic (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 Status: Chronic (8) Osteoporosis Status: Chronic (9) 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 Status: Chronic Surgical Problems: (1) History of total right hip replacement Status: Chronic Family History Diabetes mellitus FATHER Hypertension MOTHER Stroke MOTHER Social History Smoking Status: Unknown if Ever Smoked Drug Use: none Marital Status: Housing status: lives with significant other Occupational Status: retired Immunizations History of Influenza Vaccine: Yes Influenza Vaccine Date: Jun 18, 2016 History of Tetanus Vaccine?: Yes Tetanus Immunization Date: Nov 16, 2013 History of Pneumococcal: Yes Pneumococcal Date: Nov 08, 2015 Multi-Drug Resistant Organisms History of MDRO: No Allergies Coded Allergies: No Known Allergies (Verified , 12/10/16) Home Medications Scheduled Alendronate Sodium (Alendronate Sodium), 70 MG PO 1XWK Amlodipine Besylate (Amlodipine Besylate), 10 MG PO DAILY Aspirin (Aspir-81), 81 MG PO DAILY Cyclobenzaprine Hcl (Flexeril), 5 MG PO BID Ergocalciferol (Vitamin D), 50,000 UNITS PO 1XWK Esomeprazole Magnesium (Nexium), 40 MG PO DAILY Isosorbide Mononitrate Ext Rel (Imdur Ext Rel), 120 MG PO QAM Lisinopril (Lisinopril), 20 MG PO BID Metoprolol Succ (Toprol Xl) (Toprol-Xl ), 100 MG PO DAILY Multivitamin (Multivitamin), 1 TABLET PO DAILY Nitroglycerin (Nitrostat), 0.4 MG UT PRN Rosuvastatin Calcium (Crestor), 20 MG PO DAILY Warfarin Sod (Jantoven), 2.5 MG PO DAILY [Flavonoid], 3 TABS PO DAILY Review of Systems Constitutional: + fatigue, + weakness Respiratory: No cough, No dyspnea at rest, No dyspnea on exertion, No hemoptysis, No problem reported, No shortness of breath, No sputum, No wheezing Cardiovascular: No PND, No chest pain, No claudication, No edema, No orthopnea , No palpitations, No problem reported Neurologic: + balance problems, + memory loss, + problem reported (confusion ) , + vertigo, + weakness Physical Ex - H&P Physical Exam Vital Signs Date Time Temp Pulse Resp B/P Pulse Ox O2 Delivery O2 Flow Rate FiO2 12/15/16 19:04 72 18 144/79 93 Room Air 12/15/16 18:23 81 12/15/16 18:11 36.7 73 18 151/76 95 Room Air General Appearance: no apparent distress Head: normocephalic, atraumatic Eyes: normal inspection, PERRL, EOMI, sclerae normal Neck: no JVD Respiratory/Chest: chest non-tender, lungs clear, normal breath sounds, no respiratory distress Cardiovascular: regular rate, rhythm Abdomen/GI: normal bowel sounds, non tender, soft Neurologic/Psych: no motor/sensory deficits, alert, oriented x 3 Skin: normal color, warm/dry, no rash Diagnostics - H&P Diagnostics Laboratory Results Results Past 24 Hours Test 12/15/16 00:00 12/15/16 18:30 12/15/16 19:03 12/15/16 19:10 Range/Units Urine Color YELLOW Urine Appearance CLEAR CLEAR Urine pH 5.5 4.5-7.5 Urine Specific [place] 1.003 1.000-1.030 Urine Protein NEG NEG Urine Glucose (UA) NEG NEG Urine Ketones NEG NEG Urine Occult Blood NEG NEG Urine Nitrite NEG NEG Urine Bilirubin NEG NEG Urine Urobilinogen NEG NEG Urine Leukocyte Esterase NEG NEG Urine WBC (Auto) 0 0-5 /hpf Urine RBC (Auto) 0-4 0-4 /hpf Urine Hyaline Casts (Auto) 0 0-5 /lpf Urine Epithelial Cells (Auto) 0-5 0-5 /lpf Urine Bacteria (Auto) NEG NEG White Blood Count 4.17 4.8-10.8 K/uL Red Blood Count 4.88 4.7-6.1 M/uL Hemoglobin 15.7 14.0-18.0 g/dL Hematocrit 43.5 42-52 % Mean Corpuscular Volume 89.1 80-100 fL Mean Corpuscular Hemoglobin 32.2 25-34 pg Mean Corpuscular Hemoglobin Concent 36.1 32-36 g/dl Platelet Count 218 130-400 K/uL Mean Platelet Volume 9.8 7.4-10.4 fL Neutrophils (%) (Auto) 62.9 % Lymphocytes (%) (Auto) 24.5 % Monocytes (%) (Auto) 8.6 % Eosinophils (%) (Auto) 3.6 % Basophils (%) (Auto) 0.2 % Neutrophils # (Auto) 2.62 1.4-6.5 K/uL Lymphocytes # (Auto) 1.02 1.2-3.4 K/uL Monocytes # (Auto) 0.36 0.11-0.59 K/uL Eosinophils # (Auto) 0.15 0-0.5 K/uL Basophils # (Auto) 0.01 0-0.2 K/uL RDW Standard Deviation 43.6 36.4-46.3 fL RDW Coefficient of Variation 13.4 11.5-14.5 % Immature Granulocyte % (Auto) 0.2 % Immature Granulocyte # (Auto) 0.01 0.00-0.02 K/uL Sodium Level 142 136-145 mmol/L Potassium Level 3.8 3.5-5.1 mmol/L Chloride Level 107 98-107 mmol/L Carbon Dioxide Level 24 21-32 mmol/L Anion Gap 11.0 3-11 mmol/L Blood Urea Nitrogen 6 7-18 mg/dl Creatinine 0.90 0.60-1.40 mg/dl Est Creatinine Clear Calc Drug Dose 73.5 ml/min Estimated GFR () 98.5 Estimated GFR (Non- 85.0 BUN/Creatinine Ratio 7.2 10-20 Random Glucose 158 70-99 mg/dl Calcium Level 9.2 8.5-10.1 mg/dl Total Bilirubin 0.4 0.2-1 mg/dl Direct Bilirubin 0.2 0-0.2 mg/dl Aspartate Amino Transf (AST/SGOT) 23 15-37 U/L Alanine Aminotransferase (ALT/SGPT) 27 12-78 U/L Alkaline Phosphatase 78 45-117 U/L Ammonia 29.0 11-32 umol/L Troponin I < 0.015 0-0.045 ng/ml Total Protein 8.1 6.4-8.2 gm/dl Albumin 4.4 3.4-5.0 gm/dl Ethyl Alcohol mg/dL 114.0 0-3 mg/dl Bedside Lactic Acid Venous 2.18 0.90-1.70 mmol/L Microbiology Results 12/15/16 Blood Culture, Received Pending 12/15/16 Blood Culture, Received Pending Diagnostic Radiology CT HEAD WITHOUT CONTRAST (CT) CLINICAL HISTORY: Acute change in mental status COMPARISON STUDY: 10/10/2016 TECHNIQUE: Axial CT of the brain is performed from the vertex to the skull base. IV contrast was not administered for this examination. CT DOSE: 601.98 mGy.cm FINDINGS: No intra or extra-axial mass lesions are visualized. There is no CT evidence of acute cortical infarction. There is no evidence of midline shift. There is no acute hemorrhage. No calvarial fractures are visualized. There are minimal white matter hypodensities likely on a small vessel basis. 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 There is no evidence of acute sinusitis. There are left supraclinoid carotid calcifications. IMPRESSION: No acute intracranial findings CHEST ONE VIEW PORTABLE CLINICAL HISTORY: Acute change in mental status COMPARISON STUDY: 09/28/2016 FINDINGS: The heart is borderline enlarged. There is no failure. There is no focal pulmonary consolidation. There are no pleural effusions. There is a stable area of linear atelectasis/scarring at the left lung base[ IMPRESSION: No active disease in the chest. CXR normal EKG Normal sinus rhythm , septal infract ( cited before jul 27 2016 ) Impression - H&P Impression Assessment and Plan CONFUSION /HEADACHE : not sure of the etiology similar presentation on last admission 10/10/16 -to 10/12/16 CT head negative for Acute CVA pt was evaluated by Neurology Dr Villeda MRA of brain done last admission : 1. Mild narrowing with in the supraclinoid segment of the distal left ICA 2. 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 No evidence for occlusion within the [place] no focal deficit noted on clinical exam except for persistent headache transient episode of confusion -possible due to Atypical migraine ? EEG ordered to R/O possible seizure Neurology eval requested ETOH INTAKE /DEPENDENCY ? pt mentions of drinking 2 beers a day presented with blood alcohol level of > 100 pt is counselled to quit drinking -high risk for fall and injury intoxicated status Ativan PRN for possible withdrawal ordered for Banana bag Gabapentin dose avoided for potential for sedation HX OF PAF /LEF RENAL AND SPLENIC INFRACT: remains in normal sinus on beta harley Chronic anticoagulation with Coumadin INR > 3 CAD : hx of NSTEMI on 2009 no complain of chest pain or SOB no ischemic change in EKG cont ASA/statin /beta harley /Imdur /lisinopril HTN : BP stable cont out pt meds HX OF CHRONIC CHF WITH DIASTOLIC DYSFUNCTION ECHO 12/2015 : EF 60-65 % , grade II diastolic dysfunction no evidence of vol over load cont ACEI FULL CODE DVT PROPHYLAXIS : INR elevated > 3 resume Coumadin when INR therapeutic DISPOSITION : lives at home with independent in daily activities PT/OT eval requested possible return home when medically stable Family physician Dr Jaswant Mosquera Level of Care Telemetry Resuscitation Status FULL RESUSCITATION VTE Prophylaxis Given or contraindicated: Warfarin (Coumadin) Additional Copies To Mario Mosquera MD , Physical Exam (per Admitting): General Appearance: no apparent distress Head: normocephalic, atraumatic Eyes: normal inspection, PERRL, EOMI, sclerae normal Neck: no JVD Respiratory/Chest: chest non-tender, lungs clear, normal breath sounds, no respiratory distress Cardiovascular: regular rate, rhythm Abdomen/GI: normal bowel sounds, non tender, soft Neurologic/Psych: no motor/sensory deficits, alert, oriented x 3 Skin: normal color, warm/dry, no rash Hospital Course Severe Headache with Confusion-Resolved No neurological symptoms associated with it Happened to be after taking Beer with high Alcohol level in blood Similar presentation on last admission 10/10/16 -to 10/12/16 CT head negative for Acute CVA Carotid US-External Carotid stenosis EEG-negative for any seizure activity MRA of brain done last admission : 1. Mild narrowing with in the supraclinoid segment of the distal left ICA 2. 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 No evidence for occlusion within the [place] Neurology consulted -appreciate input and recommendation Doubt any Stroke and or Seizures May have Atypical Migraine Repeat MRI -negative for any lesion Neurontin started OP appointment ETOH Abuse /DEPENDENCY ? pt mentions of drinking 2 beers a day presented with blood alcohol level of > 100 pt is counselled to quit drinking -high risk for fall and injury intoxicated status Ativan PRN for possible withdrawal Gabapentin dose avoided for potential for sedation No signs or symptoms of withdrawal Doubt any significant issue with Alcohol HX OF PAF /LEF RENAL AND SPLENIC INFRACT: Is in normal sinus Continue Beta harley Chronic anticoagulation with Coumadin INR > 3 Restart Coumadin Coumadin clinic as an OP CAD : H/O of NSTEMI on 2009 no complain of chest pain or SOB no ischemic change in EKG cont ASA/statin /beta harley /Imdur /lisinopril HTN : BP stable cont out pt meds HX OF CHRONIC CHF WITH DIASTOLIC DYSFUNCTION ECHO 12/2015 : EF 60-65 % , grade II diastolic dysfunction No evidence of vol over load Cont ACEI FULL CODE DVT PROPHYLAXIS : INR elevated > 3 resume Coumadin when INR therapeutic DISPOSITION : lives at home with independent in daily activities PT/OT eval requested possible return home when medically stable Family physician Dr Jaswant Mosquera Discharge home today Total time spent on discharge = 35 minutes This includes examination of the patient, discharge planning, medication reconciliation, and communication with other providers. Discharge Instructions Date of Service Dec 18, 2016. Admission Reason for Admission: Change In Mental Status Discharge Discharge Diagnosis / Problem: Acute Confusion-resolved,Severe Headache- resolved Discharge Goals Goal(s): Prevent Disease Progression Activity Recommendations Activity Limitations: resume your previous activity . Instructions / Follow-Up Instructions / Follow-Up Dr Mosquera on 12/21/16 at 11:10AM.Please keep follow up with Coagulation clinic Current Hospital Diet Patient's current hospital diet: AHA Diet (Heart Healthy) Discharge Diet Recommended Diet: AHA Diet (Heart Healthy) Pending Studies Studies pending at discharge: no Laboratory Results Lipid Panel Test 12/16/16 07:17 Range/Units Triglycerides Level 111 0-150 mg/dl Cholesterol Level 170 0-200 mg/dl HDL Cholesterol 59 mg/dl Cholesterol/HDL Ratio 2.9 LDL Cholesterol, Calculated 89 mg/dl Medical Emergencies . Who to Call and When: Medical Emergencies: If at any time you feel your situation is an emergency, please call 911 immediately. . Non-Emergent Contact Non-Emergency issues call your: Primary Care Provider . Past History Medical & Surgical History: (1) Dizziness (2) Confusion (3) CAD (coronary artery disease) (4) HTN (hypertension) (5) GERD (gastroesophageal reflux disease) (6) Diastolic CHF (7) Headache (8) Carotid stenosis (9) Dyslipidemia . "Provider Documentation" section prepared by Roxi Chaves. VTE Core Measure Inpt VTE Proph given/why not?: Warfarin (Coumadin) <Electronically signed by Roxi Chaves M.D.> Signed: 12/18/16 1008 Additional Copies To Mario Mosquera MD
== END 2016-12-18 11:30 | disposition home or self-care (01) | DRG 940 ==
LOC: ENRESERVDT → ENRESERVTM → EDBD 17:56 → C.EDC 17:57 → C.MED 20:18
PROVIDERS: ADMIT Hospitalist; ATTEND Internal Medicine
PROC: 0HBFXZZ Excision of Right Hand Skin, External Approach (ICD-10-PCS; principal; 2016-12-13)
DX: R41.0 Disorientation, unspecified (principal); I50.32 Chronic diastolic (congestive) heart failure; R51 Headache; I25.10 Atherosclerotic heart disease of native coronary artery without angina pectoris; I48.0 Paroxysmal atrial fibrillation; E78.5 Hyperlipidemia, unspecified; I25.2 Old myocardial infarction; I65.29 Occlusion and stenosis of unspecified carotid artery; K21.9 Gastro-esophageal reflux disease without esophagitis; M81.0 Age-related osteoporosis without current pathological fracture; Z96.641 Presence of right artificial hip joint; Z83.3 Family history of diabetes mellitus; Z82.3 Family history of stroke; Z82.49 Family history of ischemic heart disease and other diseases of the circulatory system; Z79.01 Long term (current) use of anticoagulants; Z79.82 Long term (current) use of aspirin; F10.10 Alcohol abuse, uncomplicated; Z87.891 Personal history of nicotine dependence; I11.0 Hypertensive heart disease with heart failure; Z95.5 Presence of coronary angioplasty implant and graft; T23.121A Burn of first degree of single right finger (nail) except thumb, initial encounter; X19.XXXA Contact with other heat and hot substances, initial encounter; I10 Essential (primary) hypertension; I50.9 Heart failure, unspecified; Z86.73 Personal history of transient ischemic attack (TIA), and cerebral infarction without residual deficits; Z96.649 Presence of unspecified artificial hip joint

== ENCOUNTER 2017-05-30 19:44 | Emergency (ER) | payer OTHER ==
[~2017-05-30] VITALS: Ht 165.1 cm; Wt 64.9 kg
[~2017-05-30 19:44] MED LIST changes: +CEPH500C2 PO; +CYCL5TAB PO; -FLX5 PO; -METO100T44 PO; +METO1TAB69 PO; +NRN100 PO
--- NOTE | 2017-05-30 20:08 | EMERGENCY ROOM VISIT NOTE ---
History Report prepared by Isaias: Ty Larsen Under the Supervision of: Dr. Shira Vivas M.D. 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 This history is limited secondary to the patient's nonverbal state. This history is given by the patient's secondary to the patient being currently nonverbal. This happened to his in October of this year and lasted 2 hours. It happened suddenly, and he had an extensive workup to try to figure out why these nonverbal episodes occur. Today , the patient was drinking alcohol and had about 4 beers. He ate dinner and seemed normal. He got up and his knees buckled, but his caught him. After this, he stopped responding verbally. He had a similar episode to the one earlier this year and spontaneously began to speak. He will make eye contact, follow limited commands but will not answer questions. He does squeeze hands when asked. The notes that when he "drinks a lot" he doesn't take his Coumadin. 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 Surgical Problems: (1) History of total right hip replacement Family History Diabetes mellitus FATHER Hypertension MOTHER Stroke MOTHER Social History Smoking Status: Unknown if Ever Smoked Alcohol Use: occasionally Drug Use: none Marital Status: Housing Status: lives with family Occupation Status: retired Current/Historical Medications Scheduled Alendronate Sodium (Alendronate Sodium), 70 MG PO WK Amlodipine Besylate (Amlodipine Besylate), 10 MG PO DAILY Aspirin (Aspir-81), 81 MG PO DAILY Cholecalciferol (Vitamin D3), 2,000 UNITS PO DAILY Esomeprazole Magnesium (Nexium), 40 MG PO DAILY Isosorbide Mononitrate Ext Rel (Imdur Ext Rel), 120 MG PO QAM Lisinopril (Lisinopril), 20 MG PO BID Metoprolol Succ (Toprol Xl) (Toprol-Xl ), 100 MG PO DAILY Multivitamin (Multivitamin), 1 TABLET PO DAILY Nitroglycerin (Nitrostat), 0.4 MG UT PRN Rosuvastatin Calcium (Crestor), 20 MG PO DAILY Warfarin Sod (Jantoven), 2.5 MG PO DAILY Allergies Coded Allergies: No Known Allergies (Verified , 05/30/17) Physical Exam Vital Signs Date Time Temp Pulse Resp B/P (MAP) Pulse Ox O2 Delivery O2 Flow Rate FiO2 05/30/17 23:51 57 17 93 05/30/17 23:36 58 20 93 05/30/17 23:31 103/59 05/30/17 23:21 60 18 92 05/30/17 23:06 62 20 93 05/30/17 23:01 104/62 05/30/17 23:00 63 20 94 05/30/17 22:45 62 18 94 05/30/17 22:44 62 05/30/17 22:23 63 18 110/65 94 Nasal Cannula 2.0 05/30/17 21:11 61 18 107/67 97 Room Air 2.0 05/30/17 21:08 98 2.0 05/30/17 20:22 63 18 140/73 98 Nasal Cannula 2.0 05/30/17 20:15 36.7 62 18 147/75 90 Room Air 05/30/17 20:10 90 Room Air 05/30/17 20:09 95 Nasal Cannula 4.0 Physical Exam Vital signs reviewed. General: Disheveled, generally well-appearing elderly male, nasal cannula in place, in no significant distress. HEENT: No scleral icterus, PERRLA, neck supple. Atraumatic. Cardiovascular: Regular rate and rhythm, no extra sounds. Pulmonary: Clear to auscultation bilaterally, normal work of breathing. Abdomen: Soft, nontender, nondistended, positive bowel sounds. Musculoskeletal: Atraumatic, no peripheral edema. Neurologic: Patient is awake and alert. Follows commands. Turns head to look at examiner when speaking, stares and look away. Nonverbal with no attempt at speaking. Does moan occasionally and responds to questioning. Skin: Warm, dry, no rash Medical Decision & Procedures ER Provider Diagnostic Interpretation: Radiology results as stated below per my review and radiologist interpretation: HEAD WITHOUT CONTRAST (CT) CLINICAL HISTORY: 71 years-old Male presenting with Stroke. TECHNIQUE: Multidetector CT imaging of the head was performed without the use of intravenous contrast. IV contrast: None. A dose lowering technique was used consistent with the principles of ALARA (as low as reasonably achievable). COMPARISON: 12/15/2016. CT DOSE (mGy.cm): The estimated cumulative dose is 537.48 mGy.cm. FINDINGS: Photograph Inspector topogram: Unremarkable. Ventricles and sulci normal in size. Brain parenchyma normal in appearance with preserved frye-white differentiation. No mass effect or midline shift. No hemorrhage or acute territorial infarct. No extra-axial fluid collection. Paranasal sinuses and mastoid air cells clear. Calvarium intact. IMPRESSION: 1. No acute intracranial pathology. Electronically signed by: Benjamín Mckeon M.D. 05/30/2017 10:13 PM Dictated Date/Time: 05/30/2017 10:11 PM Laboratory Results 05/30/17 21:05 Red Blood Count 4.73, Mean Corpuscular Volume 90.1, Mean Corpuscular Hemoglobin 29.8, Mean Corpuscular Hemoglobin Concent 33.1, Mean Platelet Volume 10.1, Neutrophils (%) (Auto) 53.5, Lymphocytes (%) (Auto) 28.6, Monocytes (%) (Auto) 12.8, Eosinophils (%) (Auto) 5.1, Basophils (%) (Auto) 0.0, Neutrophils # (Auto ) 1.59, Lymphocytes # (Auto) 0.85, Monocytes # (Auto) 0.38, Eosinophils # (Auto ) 0.15, Basophils # (Auto) 0.00 05/30/17 21:05 Test 05/30/17 20:26 05/30/17 21:05 05/30/17 21:24 Urine Color YELLOW Urine Appearance CLEAR (CLEAR) Urine pH 6.0 (4.5-7.5) Urine Specific [place] 1.011 (1.000-1.030) Urine Protein NEG (NEG) Urine Glucose (UA) NEG (NEG) Urine Ketones NEG (NEG) Urine Occult Blood NEG (NEG) Urine Nitrite NEG (NEG) Urine Bilirubin NEG (NEG) Urine Urobilinogen NEG (NEG) Urine Leukocyte Esterase NEG (NEG) Urine Opiates Screen NEG (NEG) Urine Methadone, Qualitative NEG (NEG) Urine Barbiturates NEG (NEG) Urine Phencyclidine (PCP) Level NEG (NEG) Ur Amphetamine/Methamphetamine NEG (NEG) MDMA (Ecstasy) Screen NEG (NEG) Urine Benzodiazepines Screen NEG (NEG) Urine Cocaine Metabolite NEG (NEG) Urine Marijuana (THC) NEG (NEG) White Blood Count 2.97 K/uL (4.8-10.8) Red Blood Count 4.73 M/uL (4.7-6.1) Hemoglobin 14.1 g/dL (14.0-18.0) Hematocrit 42.6 % (42-52) Mean Corpuscular Volume 90.1 fL (80-100) Mean Corpuscular Hemoglobin 29.8 pg (25-34) Mean Corpuscular Hemoglobin Concent 33.1 g/dl (32-36) Platelet Count 187 K/uL (130-400) Mean Platelet Volume 10.1 fL (7.4-10.4) Neutrophils (%) (Auto) 53.5 % Lymphocytes (%) (Auto) 28.6 % Monocytes (%) (Auto) 12.8 % Eosinophils (%) (Auto) 5.1 % Basophils (%) (Auto) 0.0 % Neutrophils # (Auto) 1.59 K/uL (1.4-6.5) Lymphocytes # (Auto) 0.85 K/uL (1.2-3.4) Monocytes # (Auto) 0.38 K/uL (0.11-0.59) Eosinophils # (Auto) 0.15 K/uL (0-0.5) Basophils # (Auto) 0.00 K/uL (0-0.2) RDW Standard Deviation 42.1 fL (36.4-46.3) RDW Coefficient of Variation 12.8 % (11.5-14.5) Immature Granulocyte % (Auto) 0.0 % Immature Granulocyte # (Auto) 0.00 K/uL (0.00-0.02) Prothrombin Time 31.1 SECONDS (9.0-12.0) Prothromb Time International Ratio 2.8 (0.9-1.1) Activated Partial Thromboplast Time 41.9 SECONDS (21.0-31.0) Partial Thromboplastin Ratio 1.6 Anion Gap 9.0 mmol/L (3-11) Est Creatinine Clear Calc Drug Dose 65.3 ml/min Estimated GFR () 99.0 Estimated GFR (Non- 85.4 BUN/Creatinine Ratio 9.7 (10-20) Calcium Level 9.0 mg/dl (8.5-10.1) Total Creatine Kinase 79 U/L (39-308) Creatine Kinase MB 1.1 ng/ml (0.5-3.6) Creatine Kinase MB Ratio 1.4 (0-3.0) Troponin I < 0.015 ng/ml (0-0.045) Bedside Prothrombin Time INR 3.3 (0.9-1.1) Bedside Glucose 114 mg/dl (70-99) Laboratory results per my review. Medications Administered Medications (Trade) Dose Ordered Sig/Eliud Route Start Time Stop Time Status Last Admin Dose Admin Sodium Chloride 1,000 ml @ 50 mls/hr Q20H IV 05/30/17 20:40 05/31/17 01:29 DC 05/30/17 21:11 50 MLS/HR ECG Indication: other (Stroke Symptoms) Rate (beats per minute): 62 Rhythm: sinus bradycardia Findings: 1st degree AV block, nonspecific-ST abn (Lateral), no acute ischemic change Comparison ECG Date: 17 Dec 2016 Change: no significant change ED Course 2002: Past medical records reviewed. The patient was evaluated in room B11B. A complete history and physical examination was performed. 0: Ordered Sodium Chloride 1000 ml @ 50 mls/hr IV 2245: Upon reevaluation, the patient is now verbal. He remembers eating dinner this evening, but nothing after that. We discussed his test results. 2300: Upon reevaluation, the patient appeared to have improvement of his symptoms. I discussed findings with him. He will follow up with his PCP. He verbalized agreement of the treatment plan. He was discharged home. Medical Decision Differential diagnosis: Etiologies such as metabolic, infection, hypoglycemia, electrolyte abnormalities , cardiac sources, intracerebral event, toxicologic, neurologic, as well as others were entertained. This pt was evaluated and appeared to be in no distress. IV access was obtained and lab work was drawn. 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 Pt was hydrated with NSS, head CT was performed. Lab work is fairly unrevealing. CT is negative for acute abnl. EKG is sinus rhonda with first degree AV block. Pt was observed in the ED for several hours. He spontaneously began to speak and respond. His presentation is c/w psychiatric causes. He has had extensive w/u in the past and limited eval is negative today. He was d/c to his family and will f/u with PCP and neurology. He was advised to limit or avoid ETOH in the future. Medication Reconcilliation Current Medication List: was personally reviewed by me Blood Pressure Screening Patient's blood pressure: Normal blood pressure Blood pressure disposition: Did not require urgent referral Impression Primary Impression: Altered mental status Additional Impression: Alcohol use Scribe Attestation The scribe's documentation has been prepared under my direction and personally reviewed by me in its entirety. I confirm that the note above accurately reflects all work, treatment, procedures, and medical decision making performed by me. Departure Information Dispostion Home / Self-Care Referrals Mario Mosquera MD (PCP) Forms Call Back Authorization, HOME CARE DOCUMENTATION FORM, IMPORTANT VISIT INFORMATION Patient Instructions My [facility] Additional Instructions Diagnosis: Altered mental status, alcohol use Please drink plenty of clear fluids. Avoid alcohol, particularly in excess. Follow-up with your physician this week for reevaluation. Contact neurology for further care. Return to the ER for worsening of symptoms or any medical concerns. Problem Qualifiers
[2017-05-30 20:15] VITALS: TEMP 36.7
[2017-05-30] MEDS ORDERED: SODIUM CHLORIDE 0.9% 1000ML 1,000 ML IV SCH (20:40)
[2017-05-30] MEDS ORDERED: CHOL2000 PO (21:04)
[2017-05-30 21:07] VITALS: Ht 165.1 cm; Wt 64.9 kg
[2017-05-30 21:08] VITALS: O2SAT 98
[2017-05-30 21:24] LABS: COMPLETE YES; EOS % 5.1 %; HEMATOCRIT 42.6 % (42-52); LYMPH % 28.6 %; LYMPH ABS # 0.85 K/uL (1.2-3.4); MEAN CELL VOLUME 90.1 fL (80-100); MEAN CORPUSCULAR HEMOGLOBIN 29.8 pg (25-34); MEAN CORPUSCULAR HGB CONC 33.1 g/dl (32-36); MEAN PLATELET VOLUME 10.1 fL (7.4-10.4); MONO % 12.8 %; NEUT % 53.5 %; PLATELET COUNT 187 K/uL (130-400); RED BLOOD COUNT 4.73 M/uL (4.7-6.1); WHITE BLOOD COUNT 2.97 K/uL (4.8-10.8)
[2017-05-30 21:24] LABS: URINE APPEARANCE CLEAR (CLEAR); URINE BILIRUBIN NEG (NEG); URINE COLOR YELLOW; URINE NITRITE NEG (NEG); URINE SPECIFIC GRAVITY 1.011 (1.000-1.030); UROBILINOGEN NEG (NEG); ZZUR CULT IF INDIC CLEAN CATCH NO
[2017-05-30 21:28] LABS: MANUAL MICROSCOPIC REQUIRED? NO; REVIEW REQ? NO
[2017-05-30 21:43] LABS: BLOOD UREA NITROGEN 9 mg/dl (7-18); BUN/CREATININE RATIO 9.7 (10-20); CARBON DIOXIDE 24 mmol/L (21-32); CHLORIDE 109 mmol/L (98-107); CREATININE 0.89 mg/dl (0.60-1.40); GLUCOSE 120 mg/dl (70-99); POTASSIUM 3.2 mmol/L (3.5-5.1); SODIUM 142 mmol/L (136-145)
[2017-05-30 21:44] LABS: INR 2.8 (0.9-1.1); PARTIAL THROMBOPLASTIN RATIO 1.6; PROTHROMBIN TIME (PATIENT) 31.1 SECONDS (9.0-12.0)
[2017-05-30 21:48] LABS: CKMB/CK RATIO 1.4 (0-3.0)
[2017-05-30 21:49] LABS: BENZODIAZEPINE, URINE NEG (NEG); COCAINE,URINE NEG (NEG); PHENCYCLIDINE, URINE NEG (NEG)
--- NOTE | 2017-05-30 22:14 | DIAGNOSTIC IMAGING REPORT ---
HEAD WITHOUT CONTRAST (CT) CLINICAL HISTORY: 71 years-old Male presenting with Stroke. TECHNIQUE: Multidetector CT imaging of the head was performed without the use of intravenous contrast. IV contrast: None. A dose lowering technique was used consistent with the principles of ALARA (as low as reasonably achievable). COMPARISON: 12/15/2016. CT DOSE (mGy.cm): The estimated cumulative dose is 537.48 mGy.cm. FINDINGS: Delinquency Counselor topogram: Unremarkable. Ventricles and sulci normal in size. Brain parenchyma normal in appearance with preserved frye-white differentiation. No mass effect or midline shift. No hemorrhage or acute territorial infarct. No extra-axial fluid collection. Paranasal sinuses and mastoid air cells clear. Calvarium intact. IMPRESSION: 1. No acute intracranial pathology. Electronically signed by: Benjamín Mckeon M.D. 05/30/2017 10:13 PM Dictated Date/Time: 05/30/2017 10:11 PM
[2017-05-30 23:31] VITALS: BP 103/59
[2017-05-30 23:51] VITALS: PULSE 57; O2SAT 93
== END 2017-05-30 23:56 | disposition home or self-care (01) ==
LOC: EDBD 19:44 → C.EDB 19:45
DX: R41.82 Altered mental status, unspecified (principal); F10.10 Alcohol abuse, uncomplicated; I25.10 Atherosclerotic heart disease of native coronary artery without angina pectoris; I50.9 Heart failure, unspecified; E78.5 Hyperlipidemia, unspecified; K21.9 Gastro-esophageal reflux disease without esophagitis; I10 Essential (primary) hypertension; M19.90 Unspecified osteoarthritis, unspecified site; Z83.3 Family history of diabetes mellitus; Z82.49 Family history of ischemic heart disease and other diseases of the circulatory system; Z82.3 Family history of stroke; Z79.82 Long term (current) use of aspirin; Z79.01 Long term (current) use of anticoagulants

== ENCOUNTER 2020-02-22 05:45 | Inpatient (IN) ==
[2020-02-22] MEDS ORDERED: ONDANSETRON INJ 2 MG/ML 2 ML VIAL IV STA (06:10)
--- NOTE | 2020-02-22 06:14 | Emergency Department Note ---
Impression & Plan Acute kidney injury, Hypokalemia, Acute hyponatremia, Acute hypotension, Acute dehydration ED Provider Note NAME: JOE BLACK AGE: 74 SEX: M ARRIVES VIA: Walk-In INFORMANT: Patient and the patient's ED PROVIDER(S): Brianna Myers DO CHIEF COMPLAINT: Diarrhea and weakness PLAN: Dis[facility]: [facility] Condition: Stable MEDICAL DECISION MAKING: This is a 74-year-old male patient who has developed significant diarrhea, lower abdominal pain, nausea and dry heaving over the past 48 hours after receiving a shingles vaccine. The patient presented to the emergency department and was found to be significantly hypotensive. He received IV normal saline solution. The patient appears to be in acute renal failure with a creatinine greater than 5. The patient's normal baseline creatinine is near 1. He was hyponatremic and hypokalemic. He was started on a potassium replacement drip. The patient is noted to have some EKG changes as well. Troponin is stable. [facility] and [facility] will evaluate for further management. The patient has not yet had a bowel movement while here in the emergency department. This will require stool culture and Gram stain as well as testing for ova and parasites. At the time of admission, the patient was more hemodynamically stable with a blood pressure of 103/55. Triage Nursing notes reviewed and agree them. Additional history obtained from patient's Prior medical records reviewed including [facility] Vital Signs: reviewed and remarkable for hypotension Differential diagnosis: Dehydration, hyponatremia, hypokalemia, hyperglycemia, and STEMI, acute renal failure, viral illness, side effect of vaccine ER treatment provided: IV normal saline hydration; IV potassium replacement, IV Zofran Diagnostics interpreted by me: ECG: Normal sinus rhythm at [address] segment depression in the inferior and lateral leads. This was new in comparison to an EKG from 2018. There was no ectopy. Cardiac Monitoring: Normal sinus rhythm at a rate of 89 Laboratory studies: See below HPI: 74/M arrives for evaluation of diarrhea, lower abdominal pain and cramping in his legs and hands. The patient had a shingles vaccine on Saturday. Following that injection, the patient developed some diarrhea that has persisted throughout the weekend and now has associated dry heaves, lower abdominal pain and generalized weakness. The patient denies ever having diarrhea like this in the past. He describes it as explosive. They do have well water but have a bluelight and filters in place. The patient denies any COVID-19 risk factors. He has not been out of the house for quite some time. He has not been exposed to anybody with coronavirus. His does work at [employer] but they have not had any active cases there and she does not routinely have exposure to residents as she works in administration in the basement. The patient describes going to [employer] more than 1 week ago. He denies any significant fevers or respiratory complaints. He denies any loss of taste, smell, or cough. ROS: See above HPI for pertinent positives & negatives. A total of 10 systems reviewed and were otherwise negative. PAST MEDICAL HISTORY:See Below PAST SURGICAL HISTORY:See Below FAMILY HISTORY:See Below SOCIAL HISTORY:See Below HOME MEDICATIONS:See list ALLERGIES:See list VITALS:Hypotension PHYSICAL EXAMINATION: HEENT: Head - normocephalic and atraumatic Pupils are equal, round, and reactive to light. Extraocular eye muscles are intact, and sclera are anicteric. Nose - moist nasal mucosa without discharge. Mouth - moist buccal mucosa. Oropharynx is nonerythematous and there is no tonsillar exudate or edema noted. Neck: Supple; no cervical lymphadenopathy or thyromegaly Heart: Regular rate and rhythm. There is a normal S1 and S2 with no murmurs, clicks, or gallops appreciated. Lungs: Clear to auscultation bilaterally with no wheezes, rales, or rhonchi. Abdomen: Soft, completely nontender, slightly distended, with good bowel sounds. There are no palpable pulsatile masses or hepatosplenomegaly. There is no guarding, rigidity, or rebound noted. Extremities: No evidence of cyanosis, clubbing, or edema. There are easily palpable peripheral pulses. Skin: warm and dry with poor turgor and no rashes. ED COURSE: Times/Reassessments: 0600: The patient was evaluated in room A3. A complete history and physical was performed. An IV lock was initiated and labs were drawn as above. An order was placed for continuous cardiac monitoring. Patient remained in a normal sinus rhythm at a rate of 73. Previous electronic medical records were reviewed. A twelve-lead EKG was obtained. The patient was bolused with a liter of normal saline solution. 0635: Upon repeat examination of the patient, the patient described feeling very thirsty. He was given water to drink. It was noted that his creatinine was greater than 5. A second IV lock was initiated to administer a second liter of fluid 0705: The patient was significantly hypokalemic and 2 K riders were ordered. 0725: I discussed the case with the patient and his . [facility] will [facility] for further management.-Dr. Chaves I have personally spent greater than 70 minutes of critical care time in the direct management of this patient. This includes bedside care, interpretation of diagnostic studies, and testing, discussion with consultants, patient, and family members, and other required patient management activities. This 70 minutes is in excess of all separately billable procedures. Brianna Myers DO Past Med/Surg History Medical History (Updated 02/22/20 @ 08:02 by Brianna Myers DO) Altered mental status (Inactive) Carpal tunnel syndrome of right wrist (Inactive) Diverticulosis of colon (Inactive) Headache Hypospadias (Inactive) Low bone mass Vitamin deficiency Surgical History (Updated 12/25/19 @ 17:45 by Marco A Wynne MD) History of total right hip replacement (Inactive) Social History Preferred Language: Portuguese Communication Ability: Effective Visual Impairment: No Limitations Hearing Ability: Normal marital status: Current Living Situation: Spouse current occupational status: retired Feels Safe at Home: Yes Smoking Status: Former smoker Allergies Allergies Allergy/AdvReac Type Severity Reaction Status Date / Time Beta-Blockers Allergy Unknown Verified 02/22/20 06:41 (Beta-Adrenergic Bloc Home Meds Home Medications Medication Instructions Recorded Confirmed amlodipine 10 mg tablet 10 mg PO QAM tab 05/04/19 02/22/20 aspirin 81 mg tablet,delayed 81 mg PO QAM tab 05/04/19 02/22/20 release cholecalciferol (vitamin D3) 50 2,000 unit PO QAM cap 05/04/19 02/22/20 mcg (2,000 unit) capsule esomeprazole magnesium 40 mg 40 mg PO QAM cap 05/04/19 02/22/20 capsule,delayed release isosorbide mononitrate 120 mg 120 mg PO QAM tab 05/04/19 02/22/20 tablet,extended release 24 hr lisinopril 20 mg tablet 20 mg PO QAM tab 05/04/19 02/22/20 metoprolol succinate 100 mg 100 mg PO QAM tab 05/04/19 02/22/20 tablet,extended release 24 hr nitroglycerin 0.4 mg sublingual 0.4 mg SUBLINGUAL .COMPLEX 05/04/19 02/22/20 tablet vitamin B complex 1 tab PO QAM tab 05/04/19 02/22/20 warfarin 5 mg tablet See Rx Instructions .ROUTE 05/04/19 02/22/20 .COMPLEX tab calcitriol 0.5 mcg PO QAM 11/28/19 02/22/20 cyanocobalamin (vitamin B-12) 5,000 mcg SUBLINGUAL DAILY 02/22/20 02/22/20 enoxaparin See Rx Instructions .ROUTE .COMPLEX 02/22/20 02/22/20 rosuvastatin 20 mg PO DAILY 02/22/20 02/22/20 Results & Data (ED) Vital Signs Vital Signs - 24 hr 02/22/20 05:51 02/22/20 06:03 02/22/20 06:04 Temperature Temperature Source Pulse Rate 99 H 89 93 H Pulse Rate [Bilateral Apical] Pulse Rate from SpO2 Sensor Respiratory Rate 24 22 16 Respiratory Effort / Characteristics Respiratory Depth Blood Pressure 88/74 L 83/63 L Blood Pressure [Right Arm] Blood Pressure Mean 78 68 Blood Pressure Mean [Right Arm] Pulse Oximetry 96 96 Oxygen Delivery Method Room Air Room Air Sepsis Recent Fever Within 48 Hours No Sepsis New/Unexplained Change in Mental Status No Sepsis Action Taken by Nursing No Action Required 02/22/20 06:14 02/22/20 06:23 02/22/20 06:30 Temperature 36.3 C L 36.3 C L Temperature Source Oral Oral Pulse Rate 84 80 Pulse Rate [Bilateral Apical] 84 Pulse Rate from SpO2 Sensor 85 Respiratory Rate 17 33 H Respiratory Effort / Characteristics Non-Labored Respiratory Depth Normal Blood Pressure 92/50 L 82/47 L Blood Pressure [Right Arm] 92/50 L Blood Pressure Mean 54 51 Blood Pressure Mean [Right Arm] 64 Pulse Oximetry 96 Oxygen Delivery Method Room Air Sepsis Recent Fever Within 48 Hours Sepsis New/Unexplained Change in Mental Status Sepsis Action Taken by Nursing 02/22/20 06:31 02/22/20 07:00 02/22/20 07:01 Temperature Temperature Source Pulse Rate 83 74 71 Pulse Rate [Bilateral Apical] Pulse Rate from SpO2 Sensor 56 L 67 69 Respiratory Rate 24 18 20 Respiratory Effort / Characteristics Respiratory Depth Blood Pressure 98/58 L Blood Pressure [Right Arm] Blood Pressure Mean 68 Blood Pressure Mean [Right Arm] Pulse Oximetry 89 L 83 L 87 L Oxygen Delivery Method Sepsis Recent Fever Within 48 Hours Sepsis New/Unexplained Change in Mental Status Sepsis Action Taken by Nursing 02/22/20 07:30 02/22/20 07:31 Temperature Temperature Source Pulse Rate 77 73 Pulse Rate [Bilateral Apical] Pulse Rate from SpO2 Sensor 76 76 Respiratory Rate 15 33 H Respiratory Effort / Characteristics Respiratory Depth Blood Pressure 103/55 L Blood Pressure [Right Arm] Blood Pressure Mean 63 Blood Pressure Mean [Right Arm] Pulse Oximetry 92 84 L Oxygen Delivery Method Sepsis Recent Fever Within 48 Hours Sepsis New/Unexplained Change in Mental Status Sepsis Action Taken by Nursing Laboratory Data Result diagrams: 02/22/20 06:10 02/22/20 06:10 Lab Results 02/22/20 02/22/20 02/22/20 Range/Units 06:10 06:10 06:10 WBC 5.01 (4.8-10.8) K/uL RBC 5.63 (4.7-6.1) M/uL Hgb 17.6 (14.0-18.0) g/dL Hct 48.6 (42-52) % MCV 86.3 (80-100) fL MCH 31.3 (25-34) pg MCHC 36.2 H (32-36) g/dL RDW Std Deviation 41.0 (36.4-46.3) fL RDW Coeff of Sen[place] 12.9 (11.5-14.5) % Plt Count 174 (130-400) K/uL MPV 11.5 H (7.4-10.4) fL Immature Gran % (Auto) 0.2 % Neut % (Auto) 81.6 % Lymph % (Auto) 8.6 % Park % (Auto) 9.4 % Eos % (Auto) 0.2 % Baso % (Auto) 0.0 % Immature Gran # (Auto) 0.01 (0.00-0.02) K/uL Neut # (Auto) 4.09 (1.4-6.5) K/uL Lymph # (Auto) 0.43 L (1.2-3.4) K/uL Park # (Auto) 0.47 (0.11-0.59) K/uL Eos # (Auto) 0.01 (0-0.5) K/uL Baso # (Auto) 0.00 (0-0.2) K/uL PT 11.0 (9.0-12.0) Seconds INR 1.0 (0.9-1.1) Sodium 127 L (136-145) mmol/L Potassium 2.6 L (3.5-5.1) mmol/L Chloride 93 L (98-107) mmol/L Carbon Dioxide 16 L (21-32) mmol/L Anion Gap 18.0 H (3-11) BUN 51 H (7-18) mg/dl Creatinine 5.52 H* (0.6-1.4) mg/dl Est Cr Clr Drug Dosing 10.1 ml/min Est GFR ( Amer) 10.8 Est GFR (Non-Af Amer) 9.3 BUN/Creatinine Ratio 9.1 L (10-20) Glucose 131 H (70-99) mg/dl Calcium 8.8 (8.5-10.1) mg/dl Total Bilirubin 0.6 (0.2-1) mg/dl AST 21 (15-37) U/L ALT 22 (12-78) U/L Alkaline Phosphatase 67 (45-117) U/L Troponin I 0.036 (0-0.045) ng/ml Total Protein 8.8 H (6.4-8.2) gm/dl Albumin 4.1 (3.4-5.0) gm/dl Globulin 4.7 H (2.5-4.0) gm/dl Albumin/Globulin Ratio 0.9 (0.9-2) TSH 2.730 (0.300-4.500) uIu/ml Administered Medications Sodium Chloride (Nss 1000ml) 1,000 mls @ 999 mls/hr IV .Q1H1M ONE Stop: 02/22/20 08:16 Last Admin: 02/22/20 07:31 Dose: 999 mls/hr Documented by: [id number] Potassium Chloride (K Byron / Wtr) 10 meq in 100 mls @ 100 mls/hr IV Q1H MAGGIE Stop: 02/22/20 09:29 Last Admin: 02/22/20 07:31 Dose: 100 mls/hr Documented by: [id number] Discontinued Medications Sodium Chloride (Nss 1000ml) 1,000 mls @ 999 mls/hr IV .Q1H1M MAGGIE Stop: 02/22/20 07:15 Last Admin: 02/22/20 06:16 Dose: 999 mls/hr Documented by: [id number] Ondansetron HCl (Zofran) 4 mg IV NOW STA Stop: 02/22/20 06:11 Last Admin: 02/22/20 06:15 Dose: 4 mg Documented by: [id number] Discharge Plan Visit Data Chief Complaint: Dehydration Stated Complaint: DIARRHEA,DRY HEAVES,DEHYDRATED,SHINGLES SHOT ED Provider: Brianna Myers Discharge Problem: Acute kidney injury, Hypokalemia, Acute hyponatremia, Acute hypotension, Acute dehydration Forms Stand Alone Forms: [facility] [employer] Prescriptions Prescriptions: No Action amlodipine 10 mg tablet 10 mg PO QAM RF: 0 aspirin 81 mg tablet,delayed release (DR/EC) 81 mg PO QAM RF: 0 isosorbide mononitrate 120 mg tablet extended release 24 hr 120 mg PO QAM RF: 0 lisinopril 20 mg tablet 20 mg PO QAM RF: 0 metoprolol succinate 100 mg tablet extended release 24 hr 100 mg PO QAM RF: 0 esomeprazole magnesium 40 mg capsule,delayed release(DR/EC) 40 mg PO QAM RF: 0 nitroglycerin [Nitrostat] 0.4 mg tablet, sublingual 0.4 mg Sublingual .COMPLEX RF: 0 vitamin B complex tablet 1 tab PO QAM RF: 0 cholecalciferol (vitamin D3) [Vitamin D3] 2,000 unit capsule 2,000 unit PO QAM RF: 0 warfarin 5 mg tablet See Rx Instructions .ROUTE .COMPLEX RF: 0 calcitriol 0.5 mcg capsule 0.5 mcg PO QAM RF: 0 rosuvastatin 20 mg Tablet 20 mg PO DAILY RF: 0 cyanocobalamin (vitamin B-12) 5,000 mcg Tablet, Sublingual 5,000 mcg SUBLINGUAL DAILY RF: 0 enoxaparin 60 mg/0.6 mL syringe See Rx Instructions .ROUTE .COMPLEX RF: 0
[2020-02-22] MEDS ORDERED: SODIUM CHLORIDE 0.9% 1000ML 1,000 ML IV SCH (06:15)
[2020-02-22 06:23] LABS: Eosinophils # (auto) 0.01 K/uL (0-0.5); Eosinophils % (auto) 0.2 %; Hematocrit (blood only) 48.6 % (42-52); Hemoglobin 17.6 g/dL (14.0-18.0); Immature Granulocytes # (auto) 0.01 K/uL (0.00-0.02); Immature Granulocytes % (auto) 0.2 %; Lymphocytes # (auto) 0.43 K/uL (1.2-3.4); Lymphocytes % (auto) 8.6 %; Mean Corpuscular Hemoglobin 31.3 pg (25-34); Mean Corpuscular Hgb Conc 36.2 g/dL (32-36); Mean Corpuscular Volume 86.3 fL (80-100); Mean Platelet Volume 11.5 fL (7.4-10.4); Monocytes # (auto) 0.47 K/uL (0.11-0.59); Monocytes % (auto) 9.4 %; Neutrophils # (auto) 4.09 K/uL (1.4-6.5); Neutrophils % (auto) 81.6 %; Platelet Count 174 K/uL (130-400); RDW Coefficient of Variation 12.9 % (11.5-14.5); Red Blood Count 5.63 M/uL (4.7-6.1); White Blood Count 5.01 K/uL (4.8-10.8)
[2020-02-22 07:02] LABS: Albumin Globulin Ratio 0.9 (0.9-2); Albumin Level 4.1 gm/dl (3.4-5.0); BUN Creatinine Ratio 9.1 (10-20); Bilirubin,Total 0.6 mg/dl (0.2-1); Calcium 8.8 mg/dl (8.5-10.1); Creatinine Clr Calc Pharmacy 10.1 ml/min; Est GFR (African American) 10.8; Est GFR (Non-African American) 9.3; Globulin 4.7 gm/dl (2.5-4.0); Potassium 2.6 mmol/L (3.5-5.1); Thyroid Stimulating Hormone 2.73 uIu/ml (0.300-4.500); Total Protein 8.8 gm/dl (6.4-8.2); Troponin I 0.036 ng/ml (0-0.045)
[2020-02-22] MEDS ORDERED: SODIUM CHLORIDE 0.9% 1000ML 1,000 ML IV ONE (07:16)
[2020-02-22] MEDS: POTASSIUM CHLORIDE / WTR 10 MEQ/100 ML PLCT IV SCH ×2 (07:31→08:49)
[2020-02-22 08:30] LABS: Magnesium 1.7 mg/dl (1.8-2.4)
[2020-02-22] MEDS ORDERED: MAGNESIUM SULFATE / D5W 1 GM/100 ML BAG IV ONE (08:36)
--- NOTE | 2020-02-22 08:47 | XRay Report ---
XR chest 1V portable CLINICAL HISTORY: Shortness of breath COMPARISON STUDY: 03/01/2018 FINDINGS: The heart is top normal in size. There is no failure. There is no focal pulmonary consolida tion. There is no failure. There are minor left basilar subsegmental atelectatic changes. There are o ld right-sided rib deformities.[ IMPRESSION: No active disease in the chest. ACT 112: Negative or not required by law. Electronically signed by: Nacho Sandoval M.D. 02/22/2020 8:46 AM
--- NOTE | 2020-02-22 08:49 | XRay Report ---
XR KUB/Abdomen 1 view CLINICAL HISTORY: nausea/vomiting /eval for bowel obstruction COMPARISON STUDY: No previous studies for comparison. FINDINGS: There are small bowel loops the upper limits of normal in diameter. There are no transition zones indicate bowel obstruction. There are postsurgical changes of a total right hip arthroplasty. Multiple metallic fragments project over the right hip region. There are mild osteophytic changes of the left hip. IMPRESSION: No conventional radiographic evidence of bowel obstruction. ACT 112: Negative or not required by law. Electronically signed by: Nacho Sandoval M.D. 02/22/2020 8:47 AM
[2020-02-22 09:49] LABS: Base Excess ABG -5.6 mEq/L (-9-1.8); HCO3 ABG 18 mmol/L (19-24); PCO2 ABG 30 mmHg (35-46); PO2 ABG 105 mmHg (80-95)
--- NOTE | 2020-02-22 09:57 | History & Physical Report ---
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 -Poor PO intake, vomiting and diarrhea x 3 days -Metabolic abnormalities including hyponatremia of 127, hypochloremia of 93, hypokalemia of 2.6, hypomagnesemia of 1.7 in setting of severe dehydration. Anion gap of 18 -COVID-19 PCR negative. No leukocytosis. Lactic acid normal. Procalcitonin elevated at 8. Lipase 700 -Fluid resuscitation, replete electrolytes. Trend BMP every 6 hours -Stool culture, C. difficile to the look for infection. UA pending. CT abdomen pelvis without contrast pending (5) Acute renal failure: Cr 5.52 in setting of severe dehydration (baseline Cr ~1.1) -Fluid resuscitation. Trend BMP. Avoid nephrotoxic agents -Routine nephrology consult (6) ST segment changes on electrocardiogram: Evidence of ST depression on V4-6 on initial EKG in setting of hypovolemia, electrolyte abnormalities. Troponin wnl. No chest pain -Repeat EKG pending, trend troponin, monitor on telemetry (7) CAD (coronary artery disease): H/o acute anterolateral [place] in 2011 2/2 total occlusion of the LAD diagonal artery status post POBA by Dr. Maier. Most recent TTE November 2018 with EF: 55-59%, base posterior wall hypokinesis, grade 1 diastolic dysfunction -Giving missed AM doses of aspirin, hold statin for GI symptoms , elevated lipase level (8) Lupus anticoagulant disorder: History of anticoagulation on coumadin. Has been held since 02/15 with Lovenox bridge in preparation of epidural injection scheduled for today -Will bridge with IV heparin until coumadin therapeutic again. INR currently 1.0 -Monitor daily INR (9) HTN (hypertension): Continue amlodipine. Holding lisinopril in setting of AMY. (10) Parathyroid abnormality: Continue calcitriol DVT Ppx: IV heparin, resume coumadin Code status: FULL PCP: Eveline Dispo: Admit to PCU. Plan to return home once medically stable. Patient seen in collaboration with Dr. Alex. Please see addendum. History of Present Illness Chief Complaint: dehydration, nausea and vomiting Primary Care Provider: Mario Mosquera MD This is a 74yo M with a PMH of lupus anticoagulant disorder with history of thrombus on coumadin, CAD, HTN, paroxysmal atrial fibrillation, parathyroid abnormality and THERESA who presents with diarrhea, nausea and vomiting. Symptoms began 3 days ago. Patient had taken second dose of shingles vaccine that morning, so attributed symptoms to side effect of vaccination. Had nausea the remainder of Saturday and into the weekend. Then developed diffuse "tight" abdominal pain with associated green diarrhea the following day and endorses 25 episodes total. Denies any mucus or blood. Began dry heaving yesterday. Has not been able to keep any food down. Denies any sick contacts or eating unusual food. Has felt lightheaded upon standing when ambulating to the bathroom but denies any syncopal episodes. No fever, chills, headache, confusion, cough, chest pain, shortness of breath, dysuria, hematuria or constipation. Was due for epidural injection with Dr. Everett today so has been bridging with lovenox. Last dose of coumadin was 02/16/20. Allergies Allergy/AdvReac Type Severity Reaction Status Date / Time Beta-Blockers Allergy Unknown Verified 02/22/20 06:41 (Beta-Adrenergic Bloc Home Medications Home Medications Medication Instructions Recorded Confirmed Type amlodipine 10 mg tablet 10 mg PO QAM tab 05/04/19 02/22/20 History aspirin 81 mg tablet,delayed 81 mg PO QAM tab 05/04/19 02/22/20 History release cholecalciferol (vitamin D3) 50 4,000 unit PO QAM cap 05/04/19 02/22/20 History mcg (2,000 unit) capsule esomeprazole magnesium 40 mg 40 mg PO QAM cap 05/04/19 02/22/20 History capsule,delayed release isosorbide mononitrate 120 mg 120 mg PO QAM tab 05/04/19 02/22/20 History tablet,extended release 24 hr lisinopril 20 mg tablet 20 mg PO QAM tab 05/04/19 02/22/20 History metoprolol succinate 100 mg 100 mg PO QAM tab 05/04/19 02/22/20 History tablet,extended release 24 hr nitroglycerin 0.4 mg sublingual 0.4 mg SUBLINGUAL .COMPLEX 05/04/19 02/22/20 History tablet vitamin B complex 1 tab PO QAM tab 05/04/19 02/22/20 History warfarin 5 mg tablet See Rx Instructions .ROUTE 05/04/19 02/22/20 History .COMPLEX tab calcitriol 0.5 mcg PO QAM 11/28/19 02/22/20 History cyanocobalamin (vitamin B-12) 5,000 mcg SUBLINGUAL DAILY 02/22/20 02/22/20 History enoxaparin See Rx Instructions .ROUTE .COMPLEX 02/22/20 02/22/20 History rosuvastatin 20 mg PO DAILY 02/22/20 02/22/20 History Past Med/Surg History Medical History (Updated 02/22/20 @ 11:47 by Leida Russo PA-C) Alcohol use (Chronic) Aortic arch atherosclerosis CAD (coronary artery disease) (Chronic) "2009 - NSTEMI 2012 - anterolateral STEMI, s/p POBA to LAD diagonal artery occlusion" Carpal tunnel syndrome of right wrist (Inactive) Diastolic CHF (Chronic) Diverticulosis of colon (Inactive) HTN (hypertension) (Chronic) Hypospadias (Inactive) Low bone mass Lupus anticoagulant disorder Parathyroid abnormality Vitamin deficiency Surgical History Carpal tunnel syndrome History of total right hip replacement (Inactive) Family History Other Diabetes Heart disease Social History (Updated 02/22/20 @ 09:55 by Leida Russo PA-C) Preferred Language: Wolof Communication Ability: Effective Visual Impairment: No Limitations Hearing Ability: Normal Beliefs That Will Affect Care: None marital status: Current Living Situation: Spouse current occupational status: retired Other Information That Helps Us Care for You: No Feels Safe at Home: Yes Safety Concerns: Feels Safe At This Time Smoking Status: Former smoker Hx Alcohol Use: Yes Alcohol type: beer Hx Substance Use: No Review of Systems Review of Systems: At least ten systems reviewed and negative except as noted in the HPI. Physical Exam Physical Exam: General Appearance: WD/WN, vitals as above, appears acutely ill, pleasant, conversing easily Head: normocephalic, atraumatic Eyes: normal inspection, PERRL, conjunctivae normal, anicteric sclerae ENT: external ear and nose normal, dry mucosal membranes of oropharynx Neck: trachea midline, no thyromegaly normal visual inspection Respiratory: normal respiratory effort, lungs clear to auscultation, no wheeze, rales, rhonchi. Normal insp/exp effort, no accessory muscle use Cardiovascular: regular rate, rhythm, no murmur, normal peripheral pulses. Vessels: no JVD or carotid bruit Chest: normal inspection of chest Abdomen/GI: hyperactive bowel sounds, soft, nontender, no hepatosplenomegaly Extremities/Musculoskeletal: no cyanosis or clubbing, extremities motor strength 5/5 Neurologic: PERRL, EOMI, accommodation nl, no face palsy, no dysarthria, CN's II-XI intact bilaterally and moves all extremities Psychiatric: A+Ox3, euthymic affect Skin: no rashes, normal color, warm/dry Results & Data Results & Data ([facility]) Vital Signs (Past 12 Hours) Vital Signs Temp Pulse Pulse Resp BP BP Pulse Ox 02/22/20 09:32 86 25 H 111/62 02/22/20 07:31 73 33 H 103/55 L 84 L 02/22/20 07:30 77 15 92 02/22/20 07:01 71 20 87 L 02/22/20 07:00 74 18 98/58 L 83 L 02/22/20 06:31 83 24 89 L 02/22/20 06:30 80 33 H 82/47 L 02/22/20 06:23 36.3 C L 84 84 17 92/50 L 92/50 L 96 02/22/20 06:14 36.3 C L 02/22/20 06:04 93 H 16 02/22/20 06:03 89 22 83/63 L 96 02/22/20 05:51 99 H 24 88/74 L 96 Laboratory Results Short CBC 02/22/20 02/22/20 02/22/20 Range/Units 06:10 06:10 06:10 WBC 5.01 (4.8-10.8) K/uL RBC 5.63 (4.7-6.1) M/uL Hgb 17.6 (14.0-18.0) g/dL Hct 48.6 (42-52) % MCV 86.3 (80-100) fL MCH 31.3 (25-34) pg MCHC 36.2 H (32-36) g/dL RDW Std Deviation 41.0 (36.4-46.3) fL RDW Coeff of Sena 12.9 (11.5-14.5) % Plt Count 174 (130-400) K/uL MPV 11.5 H (7.4-10.4) fL Immature Gran % (Auto) 0.2 % Neut % (Auto) 81.6 % Lymph % (Auto) 8.6 % [place] % (Auto) 9.4 % Eos % (Auto) 0.2 % Baso % (Auto) 0.0 % Immature Gran # (Auto) 0.01 (0.00-0.02) K/uL Neut # (Auto) 4.09 (1.4-6.5) K/uL Lymph # (Auto) 0.43 L (1.2-3.4) K/uL [place] # (Auto) 0.47 (0.11-0.59) K/uL Eos # (Auto) 0.01 (0-0.5) K/uL Baso # (Auto) 0.00 (0-0.2) K/uL PT 11.0 (9.0-12.0) Seconds INR 1.0 (0.9-1.1) Sodium 127 L (136-145) mmol/L Potassium 2.6 L (3.5-5.1) mmol/L Chloride 93 L (98-107) mmol/L Carbon Dioxide 16 L (21-32) mmol/L Anion Gap 18.0 H (3-11) BUN 51 H (7-18) mg/dl Creatinine 5.52 H* (0.6-1.4) mg/dl Est Cr Clr Drug Dosing 10.1 ml/min Est GFR ( Amer) 10.8 Est GFR (Non-Af Amer) 9.3 BUN/Creatinine Ratio 9.1 L (10-20) Glucose 131 H (70-99) mg/dl Calcium 8.8 (8.5-10.1) mg/dl Magnesium (1.8-2.4) mg/dl Total Bilirubin 0.6 (0.2-1) mg/dl AST 21 (15-37) U/L ALT 22 (12-78) U/L Alkaline Phosphatase 67 (45-117) U/L Troponin I 0.036 (0-0.045) ng/ml Total Protein 8.8 H (6.4-8.2) gm/dl Albumin 4.1 (3.4-5.0) gm/dl Globulin 4.7 H (2.5-4.0) gm/dl Albumin/Globulin Ratio 0.9 (0.9-2) Lipase (73-393) U/L Procalcitonin (0-0.5) ng/ml TSH 2.730 (0.300-4.500) uIu/ml SARS-CoV-2 RNA (RT-PCR) 02/22/20 02/22/20 02/22/20 Range/Units 06:10 06:10 07:57 WBC (4.8-10.8) K/uL RBC (4.7-6.1) M/uL Hgb (14.0-18.0) g/dL Hct (42-52) % MCV (80-100) fL MCH (25-34) pg MCHC (32-36) g/dL RDW Std Deviation (36.4-46.3) fL RDW Coeff of Sena (11.5-14.5) % Plt Count (130-400) K/uL MPV (7.4-10.4) fL Immature Gran % (Auto) % Neut % (Auto) % Lymph % (Auto) % [place] % (Auto) % Eos % (Auto) % Baso % (Auto) % Immature Gran # (Auto) (0.00-0.02) K/uL Neut # (Auto) (1.4-6.5) K/uL Lymph # (Auto) (1.2-3.4) K/uL [place] # (Auto) (0.11-0.59) K/uL Eos # (Auto) (0-0.5) K/uL Baso # (Auto) (0-0.2) K/uL PT (9.0-12.0) Seconds INR (0.9-1.1) Sodium (136-145) mmol/L Potassium (3.5-5.1) mmol/L Chloride (98-107) mmol/L Carbon Dioxide (21-32) mmol/L Anion Gap (3-11) BUN (7-18) mg/dl Creatinine (0.6-1.4) mg/dl Est Cr Clr Drug Dosing ml/min Est GFR ( Amer) Est GFR (Non-Af Amer) BUN/Creatinine Ratio (10-20) Glucose (70-99) mg/dl Calcium (8.5-10.1) mg/dl Magnesium 1.7 L (1.8-2.4) mg/dl Total Bilirubin (0.2-1) mg/dl AST (15-37) U/L ALT (12-78) U/L Alkaline Phosphatase (45-117) U/L Troponin I (0-0.045) ng/ml Total Protein (6.4-8.2) gm/dl Albumin (3.4-5.0) gm/dl Globulin (2.5-4.0) gm/dl Albumin/Globulin Ratio (0.9-2) Lipase 708 H (73-393) U/L Procalcitonin 8.98 H (0-0.5) ng/ml TSH (0.300-4.500) uIu/ml SARS-CoV-2 RNA (RT-PCR) Cancelled BMP 02/22/20 06:10 Sodium 127 L Potassium 2.6 L Chloride 93 L Carbon Dioxide 16 L BUN 51 H Creatinine 5.52 H* Glucose 131 H Calcium 8.8 Cardiac Enzymes 02/22/20 Range/Units 06:10 Troponin I 0.036 (0-0.045) ng/ml Liver Function 02/22/20 Range/Units 06:10 Total Bilirubin 0.6 (0.2-1) mg/dl AST 21 (15-37) U/L ALT 22 (12-78) U/L Alkaline Phosphatase 67 (45-117) U/L Albumin 4.1 (3.4-5.0) gm/dl Diagnostic Findings CXR: IMPRESSION: No active disease in the chest. KUB XR: IMPRESSION: No conventional radiographic evidence of bowel obstruction. ECG Rhythm: normal sinus Findings: + ST depression (V4-V6) Supervising Physician Co-Signing Physician Notes ATTENDING ADDENDUM : pt seen and examined in ER room A3 , care co-ordinated with Leida COATS 74 yo M with past medical hx of CAD , HTN , diastolic CHF , Lupus anticoagulant positive on chronic anticoagulation woth coumadin presented to ER with complain of intractable Nausea /vomiting , diarrhea for past 2 days pt had 2nd /booster dose of Shingles vaccine on last Saturday started to experience GI symptoms -multiple loose greenish bowel movements, poor appetite , nausea/vomiting no complain of chest pain , no SOB or BACH no fever or chills no cough no abdominal pain no known COVID 19 contact pt felt dizzy /lightheaded , no syncope In the ER pt was found to be hypotensive /tachycardic electrolytes shows , hyponatremia , hypokalemia , hypochloremia , acute renal failure Cr > 5 ( baseline Cr 1 pn 11/2019) PHYSICAL EXAM : gen : ill appearing , no acute distress /appears to be dehydrated HEENT : dry oral mucosa lungs; clear , no wheeze or rales Abdomen ; soft , non tender , hyperactive bowel sound Ext : no lower ext edema Neuro; AAO x3 , no focal deficit NAUSEA /VOMITING /DIARRHEA : possible viral gastroenteritis COVID 19 negative no sick contact or recent travel cont supportive care with IV fluid , bowel rest -clear liquid diet advance as tolerated xray of KUB : no evidence of obstruction CT abdomen/pelvis non contrast ordered -hx of diverticulitis no abx ordered as does not have any abdominal pain , no fever , normal white count stool studies For C diff and culture ordered ACUTE RENAL FAILURE : due to severe dehydration , GI loss with vomiting diarrhea baseline CKD stage 3 , Cr was 1.1 on 11/28/19 presents with Cr > 5 ordered to hold ACEI , IV fluid bolus 2 liter given in ER will cont IVF withNSS + 20 K @ 125 ml /hr follow BMP closely avoid hypotensive episode nephrology consulted HYPONATREMIA /HYPOKALEMIA due to above : GI loss /dehydration cont IVF with NSS with K corrected low mg level nephrology following HYPOCHLOREMIC METABOLIC ACIDOSIS due to GI loss of hco3 with ATN/ac renal failure ABG normal pH 7.40 , with respiratory compensation PCo2 30 cont to correct dehydration and electrolyte deficiency follow BMP EKG CHANGE: hx of CAD no complain of chest pain or SOB EKG shows ST depression on lateral lead with T wave inversion in ant leads possible due to hypotension troponin negative , serial level ordered resting ECHO ordered repeat EKG to assess resolution of ST-T wave changes after correction of dehydration LUPUS ANTICOAGULANT POSITIVE INR ~1 ( has been off Coumadin for scheduled epidural injection for chronic back pain /was on Lovenox bridge ) D/c Lovenox for MAY ordered IV heparin Bridge , resume coumadin HYPOTENSION : due to vol loss /dehydration with N/V /Diarrhea no evidence of sepsis normal lactic acid hold all BP meds : except for beta harley with holding parameters ordered for orthostaic vitals monitor in tele ELEVATED LIPASE : possible due to intractable N/V normal LFT, no abdominal pain hold statin clear liquid diet follow report of CT abdomen /pelvis FULL CODE DVT PROPHYLAXIS : IV heparin /Coumadin DISPOSITION admit to PCU PT/OT eval prior to discharge please refer to H&P by Leida Russo PA-C for further documentation of other chronic issues Aletha Alex MD
[2020-02-22 10:01] LABS: Allen Test Pos (Pos)
[2020-02-22] MEDS ORDERED: POTASSIUM CHLORIDE 20 MEQ TABCR PO STA ×3 (11:21→19:04)
--- NOTE | 2020-02-22 11:35 | Hospitalist Progress Note ---
Date of Service February 22, 2020 Subjective ATTENDING ADDENDUM : pt seen and examined in ER room A3 , care co-ordinated with Leida COATS 74 yo M with past medical hx of CAD , HTN , diastolic CHF , Lupus anticoagulant positive on chronic anticoagulation woth coumadin presented to ER with complain of intractable Nausea /vomiting , diarrhea for past 2 days pt had 2nd /booster dose of Shingles vaccine on last Saturday started to experience GI symptoms -multiple loose greenish bowel movements, poor appetite , nausea/vomiting no complain of chest pain , no SOB or BACH no fever or chills no cough no abdominal pain no known COVID 19 contact pt felt dizzy /lightheaded , no syncope In the ER pt was found to be hypotensive /tachycardic electrolytes shows , hyponatremia , hypokalemia , hypochloremia , acute renal failure Cr > 5 ( baseline Cr 1 pn 11/2019) PHYSICAL EXAM : gen : ill appearing , no acute distress /appears to be dehydrated HEENT : dry oral mucosa lungs; clear , no wheeze or rales Abdomen ; soft , non tender , hyperactive bowel sound Ext : no lower ext edema Neuro; AAO x3 , no focal deficit NAUSEA /VOMITING /DIARRHEA : possible viral gastroenteritis COVID 19 negative no sick contact or recent travel cont supportive care with IV fluid , bowel rest -clear liquid diet advance as tolerated xray of KUB : no evidence of obstruction CT abdomen/pelvis non contrast ordered -hx of diverticulitis no abx ordered as does not have any abdominal pain , no fever , normal white count stool studies For C diff and culture ordered ACUTE RENAL FAILURE : due to severe dehydration , GI loss with vomiting diarrhea baseline CKD stage 3 , Cr was 1.1 on 11/28/19 presents with Cr > 5 ordered to hold ACEI , IV fluid bolus 2 liter given in ER will cont IVF withNSS + 20 K @ 125 ml /hr follow BMP closely avoid hypotensive episode nephrology consulted HYPONATREMIA /HYPOKALEMIA due to above : GI loss /dehydration cont IVF with NSS with K corrected low mg level nephrology following HYPOCHLOREMIC METABOLIC ACIDOSIS due to GI loss of hco3 with ATN/ac renal failure ABG normal pH 7.40 , with respiratory compensation PCo2 30 cont to correct dehydration and electrolyte deficiency follow BMP EKG CHANGE: hx of CAD no complain of chest pain or SOB EKG shows ST depression on lateral lead with T wave inversion in ant leads possible due to hypotension troponin negative , serial level ordered resting ECHO ordered repeat EKG to assess resolution of ST-T wave changes after correction of dehydration LUPUS ANTICOAGULANT POSITIVE INR ~1 ( has been off Coumadin for scheduled epidural injection for chronic back pain /was on Lovenox bridge ) D/c Lovenox for MAY ordered IV heparin Bridge , resume coumadin HYPOTENSION : due to vol loss /dehydration with N/V /Diarrhea no evidence of sepsis normal lactic acid hold all BP meds : except for beta harley with holding parameters ordered for orthostaic vitals monitor in tele ELEVATED LIPASE : possible due to intractable N/V normal LFT, no abdominal pain hold statin clear liquid diet follow report of CT abdomen /pelvis FULL CODE DVT PROPHYLAXIS : IV heparin /Coumadin DISPOSITION admit to PCU PT/OT eval prior to discharge please refer to H&P by Leida Russo PA-C for further documentation of other chronic issues Aletha Alex MD Results & Data Results & Data ([facility]) Vital Signs (Past 12 Hours) Vital Signs Temp Pulse Pulse Resp BP BP Pulse Ox 02/22/20 10:01 77 23 108/52 L 96 02/22/20 10:00 78 22 96 02/22/20 09:32 86 25 H 111/62 02/22/20 09:31 87 19 111/62 90 02/22/20 09:30 17 87 L 02/22/20 09:02 73 21 103/61 02/22/20 09:01 81 21 48/33 L 02/22/20 09:00 91 H 18 02/22/20 08:31 79 25 H 114/91 02/22/20 08:30 73 23 02/22/20 08:01 73 21 96 02/22/20 08:00 72 18 121/70 93 02/22/20 07:32 77 17 94 02/22/20 07:31 73 33 H 103/55 L 84 L 02/22/20 07:30 77 15 92 02/22/20 07:01 71 20 87 L 02/22/20 07:00 74 18 98/58 L 83 L 02/22/20 06:31 83 24 89 L 02/22/20 06:30 80 33 H 82/47 L 02/22/20 06:23 36.3 C L 84 84 17 92/50 L 92/50 L 96 06/15/20 06:14 36.3 C L 02/22/20 06:04 93 H 16 02/22/20 06:03 89 22 83/63 L 96 02/22/20 05:51 99 H 24 88/74 L 96
--- NOTE | 2020-02-22 12:35 | Electrocardiogram Report ---
Test Reason : Blood Pressure : / mmHG Vent. Rate : 094 BPM Atrial Rate : 094 BPM P-R Int : 180 ms QRS Dur : 084 ms QT Int : 376 ms P-R-T Axes : 081 040 077 degrees QTc Int : 470 ms Normal sinus rhythm St segement changes consistent with ischemia Abnormal ECG When compared with ECG of 01-MAR-2018 14:41, CT interval has decreased ST now depressed in Anterior leads Confirmed by Tommie Vee ([id number]) on 02/22/2020 12:34:41 PM Referred By: REFERRED SELF Confirmed By:Ronald Vee
[2020-02-22] MEDS ORDERED: ACETAMINOPHEN 325 MG TAB PO PRN (12:36)
[2020-02-22] MEDS ORDERED: NITROGLYCERIN SL 0.4 MG/TAB TAB SL PRN (12:36)
[2020-02-22] MEDS ORDERED: ONDANSETRON INJ 2 MG/ML 2 ML VIAL IV PRN (12:36)
--- NOTE | 2020-02-22 12:36 | CT Scan Report ---
CT SCAN OF THE ABDOMEN AND PELVIS WITHOUT CONTRAST CLINICAL HISTORY: Abdominal pain, nausea, vomiting. COMPARISON STUDY: July 2019 TECHNIQUE: CT scan of the abdomen and pelvis was performed from the lung bases to the proximal femurs . Images are reviewed in the axial, sagittal, and coronal planes. IV contrast was not administered fo r this examination. A dose lowering technique was utilized adhering to the principles of ALARA. CT DOSE: 420.88 mGycm FINDINGS: Lower chest: There are minor dependent atelectatic changes. A small hiatal hernia Liver: The unenhanced liver is normal in size, contour, and attenuation. There is no intrahepatic elyse iary ductal dilatation. Gallbladder: Unremarkable. Spleen: Normal in size and attenuation. Pancreas: Unremarkable. Adrenal glands: Unremarkable. Kidneys: There is a 3.5 cm right renal cyst. There is no hydronephrosis. There are equivocal punctate renal calculi... Bowel: There are no transition zones indicate bowel obstruction. There is no evidence of acute divert iculitis. The appendix appears normal. There are several small diverticula particular of the distal i leum. Peritoneum: There is no intraperitoneal free air or abdominal ascites. Vasculature: The abdominal aorta is normal in course and caliber. Adenopathy: None. Pelvic viscera: There is mild prostatomegaly. There are postsurgical changes of a total right hip art hroplasty with secondary artifact. Skeletal structures: No destructive osseous lesions are seen. IMPRESSION: 1. No evidence of bowel obstruction. No evidence of free air 2. Small hiatal hernia 3. Equivocal punctate renal calculi. No hydronephrosis. No ureteral or bladder calculi identified 4. Distal ileal diverticulosis. 5. No evidence of acute appendicitis. No evidence of acute diverticulitis. ACT 112: Negative or not required by law. Electronically signed by: Nacho Sandoval M.D. 02/22/2020 12:35 PM
[2020-02-22] MEDS: Heparin IV Low Dose *NO* Bolus IV SCH ×5 (12:45→13:07)
[2020-02-22] MEDS: NSS + 20MEQ KCL 20 MEQ/1,000 ML BAG IV SCH ×2 (12:59→20:21)
[2020-02-22] MEDS: HEPARIN SODIUM/DEXTROSE 25,000 UNITS/500 ML BAG IV SCH (12:59)
[2020-02-22] MEDS ORDERED: POTASSIUM CHLORIDE 20 MEQ in SODIUM CHLORIDE 0.9% 1000ML 1,000 ML IV SCH (13:00)
[2020-02-22 13:31] LABS: Partial Thromboplastin Ratio 1.4; Partial Thromboplastin Time 39.6 Seconds (21.0-31.0)
[2020-02-22 13:37] LABS: BUN Creatinine Ratio 12.6 (10-20); Blood Urea Nitrogen 52 mg/dl (7-18); Carbon Dioxide 19 mmol/L (21-32); Chloride 97 mmol/L (98-107); Creatinine Clr Calc Pharmacy 13.5 ml/min; Est GFR (African American) 15.4; Est GFR (Non-African American) 13.3; Glucose 98 mg/dl (70-99); Potassium 2.7 mmol/L (3.5-5.1); Sodium 131 mmol/L (136-145)
[2020-02-22 13:42] LABS: Troponin I < 0.015 ng/ml (0-0.045)
--- NOTE | 2020-02-22 16:33 | Hospitalist Progress Note ---
Date of Service February 22, 2020 Assessment & Plan Admission and Anticipated Discharge Date Admission Date: February 22, 2020 Subjective ATTENDING ADDENDUM : 1 pm labs reviewed : Na 131 ( was 127 on admission ) goal is 4-6 mmol Na correction in 24 hrs ordered to reduce IVF NSS + 20 K to 80 ml/hr repeat Lab ordered for 6 pm pt still profoundly hypokalemia : K 2.7 received 20 meq K IV in ER ordered for 60 meq PO K now given 1 gm Mg IV follow lab at 6 pm may need additional K rider CT abdomen/pelvis non contrast shows no pathology : no obstruction , no diverticulosis Aletha Alex MD Results & Data Results & Data ([facility]) Vital Signs (Past 12 Hours) Vital Signs Temp Pulse Pulse Pulse Resp BP BP 02/22/20 15:31 36.5 C 78 20 131/72 02/22/20 14:30 79 02/22/20 12:38 36.5 C 77 17 02/22/20 12:13 74 18 110/72 02/22/20 10:31 100 H 20 02/22/20 10:30 77 19 101/61 02/22/20 10:02 79 20 02/22/20 10:01 77 23 108/52 L 02/22/20 10:00 78 22 02/22/20 09:32 86 25 H 02/22/20 09:31 87 19 111/62 02/22/20 09:30 17 02/22/20 09:02 73 21 103/61 02/22/20 09:01 81 21 48/33 L 02/22/20 09:00 91 H 18 02/22/20 08:31 79 25 H 114/91 02/22/20 08:30 73 23 02/22/20 08:01 73 21 02/22/20 08:00 72 18 121/70 02/22/20 07:32 77 17 02/22/20 07:31 73 33 H 103/55 L 02/22/20 07:30 77 15 02/22/20 07:01 71 20 02/22/20 07:00 74 18 98/58 L 02/22/20 06:31 83 24 02/22/20 06:30 80 33 H 82/47 L 02/22/20 06:23 36.3 C L 84 84 17 92/50 L 06/15/20 06:14 36.3 C L 06/15/20 06:04 93 H 16 02/22/20 06:03 89 22 83/63 L 02/22/20 05:51 99 H 24 88/74 L BP Pulse Ox 02/22/20 15:31 95 02/22/20 14:30 02/22/20 12:38 127/71 97 02/22/20 12:13 95 02/22/20 10:31 92 02/22/20 10:30 93 02/22/20 10:02 96 02/22/20 10:01 96 02/22/20 10:00 96 02/22/20 09:32 111/62 02/22/20 09:31 90 02/22/20 09:30 87 L 02/22/20 09:02 02/22/20 09:01 02/22/20 09:00 02/22/20 08:31 02/22/20 08:30 02/22/20 08:01 96 02/22/20 08:00 93 02/22/20 07:32 94 02/22/20 07:31 84 L 02/22/20 07:30 92 02/22/20 07:01 87 L 02/22/20 07:00 83 L 02/22/20 06:31 89 L 02/22/20 06:30 02/22/20 06:23 92/50 L 96 02/22/20 06:14 02/22/20 06:04 02/22/20 06:03 96 02/22/20 05:51 96
[2020-02-22] MEDS: WARFARIN SOD 5 MG TAB PO SCH (16:45)
--- NOTE | 2020-02-22 17:30 | Hospitalist Progress Note ---
Date of Service February 22, 2020 Assessment & Plan Admission and Anticipated Discharge Date Admission Date: February 22, 2020 Results & Data Results & Data ([facility]) Vital Signs (Past 12 Hours) Vital Signs Temp Pulse Pulse Pulse Resp BP BP 02/22/20 15:31 36.5 C 78 20 131/72 02/22/20 14:30 79 02/22/20 12:38 36.5 C 77 17 02/22/20 12:13 74 18 110/72 02/22/20 10:31 100 H 20 02/22/20 10:30 77 19 101/61 02/22/20 10:02 79 20 02/22/20 10:01 77 23 108/52 L 02/22/20 10:00 78 22 02/22/20 09:32 86 25 H 02/22/20 09:31 87 19 111/62 02/22/20 09:30 17 02/22/20 09:02 73 21 103/61 02/22/20 09:01 81 21 48/33 L 02/22/20 09:00 91 H 18 02/22/20 08:31 79 25 H 114/91 02/22/20 08:30 73 23 02/22/20 08:01 73 21 02/22/20 08:00 72 18 121/70 02/22/20 07:32 77 17 02/22/20 07:31 73 33 H 103/55 L 02/22/20 07:30 77 15 02/22/20 07:01 71 20 02/22/20 07:00 74 18 98/58 L 02/22/20 06:31 83 24 02/22/20 06:30 80 33 H 82/47 L 02/22/20 06:23 36.3 C L 84 84 17 92/50 L 02/22/20 06:14 36.3 C L 02/22/20 06:04 93 H 16 02/22/20 06:03 89 22 83/63 L 02/22/20 05:51 99 H 24 88/74 L BP Pulse Ox 02/22/20 15:31 95 02/22/20 14:30 02/22/20 12:38 127/71 97 02/22/20 12:13 95 02/22/20 10:31 92 02/22/20 10:30 93 02/22/20 10:02 96 02/22/20 10:01 96 02/22/20 10:00 96 02/22/20 09:32 111/62 02/22/20 09:31 90 02/22/20 09:30 87 L 02/22/20 09:02 02/22/20 09:01 02/22/20 09:00 02/22/20 08:31 02/22/20 08:30 02/22/20 08:01 96 02/22/20 08:00 93 02/22/20 07:32 94 02/22/20 07:31 84 L 02/22/20 07:30 92 02/22/20 07:01 87 L 02/22/20 07:00 83 L 02/22/20 06:31 89 L 02/22/20 06:30 02/22/20 06:23 92/50 L 96 02/22/20 06:14 02/22/20 06:04 02/22/20 06:03 96 02/22/20 05:51 96
[2020-02-22 18:46] LABS: BUN Creatinine Ratio 16.1 (10-20); Calcium 7.6 mg/dl (8.5-10.1); Creatinine Clr Calc Pharmacy 18.4 ml/min; Est GFR (African American) 22.4; Est GFR (Non-African American) 19.3; Magnesium 2.1 mg/dl (1.8-2.4); Potassium 2.8 mmol/L (3.5-5.1)
[2020-02-22 18:51] LABS: Troponin I 0.017 ng/ml (0-0.045)
--- NOTE | 2020-02-22 19:08 | Hospitalist Progress Note ---
Date of Service February 22, 2020 Assessment & Plan Admission and Anticipated Discharge Date Admission Date: February 22, 2020 Subjective ATTENDING NOTE: 6 PM LAB REVIEWED : Na stable 131 : keep the same IVF nss + 20 k @ 80 ml/hr now ( rate can be reduced if next lab at midnight shows Na > 132 ) Cr improved ~3 remains Hypokalemic K 2.8 ordered for 40 mg PO K Mg 2.1 Aletha Alex MD Results & Data Results & Data ([facility]) Vital Signs (Past 12 Hours) Vital Signs Temp Pulse Pulse Pulse Resp BP BP 02/22/20 15:31 36.5 C 78 20 131/72 02/22/20 14:30 79 02/22/20 12:38 36.5 C 77 17 02/22/20 12:13 74 18 110/72 02/22/20 10:31 100 H 20 02/22/20 10:30 77 19 101/61 02/22/20 10:02 79 20 02/22/20 10:01 77 23 108/52 L 02/22/20 10:00 78 22 02/22/20 09:32 86 25 H 02/22/20 09:31 87 19 111/62 02/22/20 09:30 17 02/22/20 09:02 73 21 103/61 02/22/20 09:01 81 21 48/33 L 02/22/20 09:00 91 H 18 02/22/20 08:31 79 25 H 114/91 02/22/20 08:30 73 23 02/22/20 08:01 73 21 02/22/20 08:00 72 18 121/70 02/22/20 07:32 77 17 02/22/20 07:31 73 33 H 103/55 L 02/22/20 07:30 77 15 BP Pulse Ox 02/22/20 15:31 95 02/22/20 14:30 02/22/20 12:38 127/71 97 02/22/20 12:13 95 02/22/20 10:31 92 02/22/20 10:30 93 02/22/20 10:02 96 02/22/20 10:01 96 02/22/20 10:00 96 02/22/20 09:32 111/62 02/22/20 09:31 90 02/22/20 09:30 87 L 02/22/20 09:02 02/22/20 09:01 02/22/20 09:00 02/22/20 08:31 02/22/20 08:30 02/22/20 08:01 96 02/22/20 08:00 93 02/22/20 07:32 94 02/22/20 07:31 84 L 02/22/20 07:30 92
--- NOTE | 2020-02-22 19:19 | Nephrology Consultation ---
Date of Consultation February 22, 2020 Assessment & Plan (1) Acute renal failure: improving prerenal AMY from presenting creatinine 5.5 > 3.0 12 hrs later; has baseline creatinine 1.1. on presentation he had sbp in 80-90s; has rebounded nicely now to 110-120s. not anemic. C diff and covid negative. ->?oliguria; but difficult to say w/ large /frequent loose bm -on NS w/ 20 mEq K currently > see below -no urgent indication for dialysis; continue to monitor -no need for special dialysis/renal diet at this time Present on Admission?: Yes (2) Electrolyte abnormality: severe hypokalemia w/ presenting K 2.6, minimal improvement to 2.8 at 12 hrs later despite aggressive repletion; he has massive K requirement clearly, despite renal failure. Has improving bicarb which was moderately low w/ emesis and improving mild hyponatremia. electrolyte disorders from dehydration. hospitalist plan was for same K - supplemented IVF same rate + 40 mEq po K x 1; pt had also had 60 mEq po K at 1600 today -will change NS w/ K to LR w/ 20 mEQ/L K same rate -recheck bmp already ordered for 1230 AM > if K>4.5 or if sNa > 133, nursing ordered to stop IVF until am and to call [employer] internship if sbp < 100 Present on Admission?: Yes History of Present Illness Reason for Consultation: acute renal failure Requesting Physician: Dr Alex Attending Physician: Aletha Alex MD History of Present Illness 74 y/o M whom I'm asked to see for AMY was admitted here this morning dehydration after 3 days of n/poor po/d. 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 His baseline creatinine is 1.1, as recently as late December 2019. Was to have spinal injection today and therefore at admission was on lovenox bridging. Instead he came to ER d/t worsening dry heaves, ongoing diarrhea, weaknessHe reported > 25 episodes green diarrhea past 3 days. still w/ 5 bm today. C diff negative. no actual emesis just dry heaves. he thinks UOP is down. No f/c, no sick contacts or new foods/food sources; + presyncopal sx; no voiding concerns. His presenting creatinine was 5.5 at 0600 today; improved to 3.0 by 1800 this evening. Presenting sNa 127; currently 131 this evening. Presenting K 2.6, 2.8 this evening. Presenting C02 16; 20 this evening. he is getting NS at 80 down from 125 mL/hr w/ 20 mEq/L K in it. tolerating clears currently. Allergies Allergy/AdvReac Type Severity Reaction Status Date / Time Beta-Blockers Allergy Unknown Verified 02/22/20 06:41 (Beta-Adrenergic Bloc Home Medications Home Medications Medication Instructions Recorded Confirmed Type amlodipine 10 mg tablet 10 mg PO QAM tab 05/04/19 02/22/20 History aspirin 81 mg tablet,delayed 81 mg PO QAM tab 05/04/19 02/22/20 History release cholecalciferol (vitamin D3) 50 4,000 unit PO QAM cap 05/04/19 02/22/20 History mcg (2,000 unit) capsule esomeprazole magnesium 40 mg 40 mg PO QAM cap 05/04/19 02/22/20 History capsule,delayed release isosorbide mononitrate 120 mg 120 mg PO QAM tab 05/04/19 02/22/20 History tablet,extended release 24 hr lisinopril 20 mg tablet 20 mg PO QAM tab 05/04/19 02/22/20 History metoprolol succinate 100 mg 100 mg PO QAM tab 05/04/19 02/22/20 History tablet,extended release 24 hr nitroglycerin 0.4 mg sublingual 0.4 mg SUBLINGUAL .COMPLEX 05/04/19 02/22/20 History tablet vitamin B complex 1 tab PO QAM tab 05/04/19 02/22/20 History warfarin 5 mg tablet See Rx Instructions .ROUTE 05/04/19 02/22/20 History .COMPLEX tab calcitriol 0.5 mcg PO QAM 11/28/19 02/22/20 History cyanocobalamin (vitamin B-12) 5,000 mcg SUBLINGUAL DAILY 02/22/20 02/22/20 History enoxaparin See Rx Instructions .ROUTE .COMPLEX 02/22/20 02/22/20 History rosuvastatin 20 mg PO DAILY 02/22/20 02/22/20 History Patient History Medical History (Updated 02/22/20 @ 19:28 by Karen Heart MD, PhD) Alcohol use (Chronic) Aortic arch atherosclerosis CAD (coronary artery disease) (Chronic) "2009 - NSTEMI 2012 - anterolateral STEMI, s/p POBA to LAD diagonal artery occlusion" Carpal tunnel syndrome of right wrist (Inactive) Diastolic CHF (Chronic) Diverticulosis of colon (Inactive) HTN (hypertension) (Chronic) Hypospadias (Inactive) Low bone mass Lupus anticoagulant disorder Parathyroid abnormality Vitamin deficiency Surgical History Carpal tunnel syndrome History of total right hip replacement (Inactive) Family History Other Diabetes Heart disease Social History (Updated 02/22/20 @ 09:55 by Leida Russo PA-C) Preferred Language: Romansh Communication Ability: Effective Visual Impairment: No Limitations Hearing Ability: Normal Beliefs That Will Affect Care: None marital status: Current Living Situation: Spouse current occupational status: retired Other Information That Helps Us Care for You: No Feels Safe at Home: Yes Safety Concerns: Feels Safe At This Time Smoking Status: Former smoker Hx Alcohol Use: Yes Alcohol type: beer Hx Substance Use: No Review of Systems Review of Systems: All systems reviewed & are unremarkable except as noted in HPI & below Gastrointestinal: + abdominal pain (reports mild TTP periumbilical) Physical Exam Constitutional: well developed and well nourished; no acute distress on RA, maneuvers readily for exam Eyes: EOM intact bilaterally ENMT: Ears: no external ear abnormality Nose: no external nose abnormality Mouth: + dry oral mucous membranes Neck: no nuchal rigidity Respiratory: normal respiratory effort Auscultation: + diminished lung kely nds and + crackles (bibasilar) Cardiovascular: RRR, no murmur, no edema Gastrointestinal (Abdomen): Inspection/Auscultation: + abdomen distended and normal bowel sounds Percussion/Palpation: abdomen soft; abdomen nontender Musculoskeletal: Extremities: strength 5/5 throughout Skin: no rashes, warm and dry Neurologic: daniels, fluent speech, no tremor Psychiatric: A+Ox3, euthymic affect Genitourinary: no breen Results & Data Vital Signs (Past 12 Hours) Vital Signs Temp Pulse Pulse Pulse Resp BP BP 02/22/20 15:31 36.5 C 78 20 131/72 02/22/20 14:30 79 02/22/20 12:38 36.5 C 77 17 02/22/20 12:13 74 18 110/72 02/22/20 10:31 100 H 20 02/22/20 10:30 77 19 101/61 02/22/20 10:02 79 20 02/22/20 10:01 77 23 108/52 L 02/22/20 10:00 78 22 02/22/20 09:32 86 25 H 02/22/20 09:31 87 19 111/62 02/22/20 09:30 17 02/22/20 09:02 73 21 103/61 02/22/20 09:01 81 21 48/33 L 02/22/20 09:00 91 H 18 02/22/20 08:31 79 25 H 114/91 02/22/20 08:30 73 23 02/22/20 08:01 73 21 02/22/20 08:00 72 18 121/70 02/22/20 07:32 77 17 02/22/20 07:31 73 33 H 103/55 L 02/22/20 07:30 77 15 BP Pulse Ox 02/22/20 15:31 95 02/22/20 14:30 02/22/20 12:38 127/71 97 02/22/20 12:13 95 02/22/20 10:31 92 02/22/20 10:30 93 02/22/20 10:02 96 02/22/20 10:01 96 02/22/20 10:00 96 02/22/20 09:32 111/62 02/22/20 09:31 90 02/22/20 09:30 87 L 02/22/20 09:02 02/22/20 09:01 02/22/20 09:00 02/22/20 08:31 02/22/20 08:30 02/22/20 08:01 96 02/22/20 08:00 93 02/22/20 07:32 94 02/22/20 07:31 84 L 02/22/20 07:30 92 Laboratory Results 06/15/20 06:10 02/22/20 18:11 (1) Acute renal failure Acute renal failure type: unspecified Qualified Code(s): N17.9 - Acute kidney failure, unspecified
[2020-02-22 19:45] LABS: Partial Thromboplastin Ratio 2.4
[2020-02-22 19:53] LABS: Partial Thromboplastin Time 66.5 Seconds (21.0-31.0)
[2020-02-22] MEDS ORDERED: POTASSIUM CHLORIDE 20 MEQ in LACTATED RINGER'S 1,000 ML IV SCH (21:00)
[2020-02-23 02:09] LABS: INR 1.2 (0.9-1.1); Partial Thromboplastin Ratio 2.3; Prothrombin Time 12.1 Seconds (9.0-12.0)
[2020-02-23 02:19] LABS: Partial Thromboplastin Time 63.8 Seconds (21.0-31.0)
[2020-02-23 02:52] LABS: Calcium 7.7 mg/dl (8.5-10.1); Creatinine Clr Calc Pharmacy 27.8 ml/min; Est GFR (African American) 36.7; Est GFR (Non-African American) 31.7; Potassium 3.2 mmol/L (3.5-5.1)
[2020-02-23] MEDS ORDERED: POTASSIUM CHLORIDE 20 MEQ/15 ML UDC PO STA (03:07)
[2020-02-23 04:03] LABS: Appearance Urine Clear (Clear); Bilirubin Urine Negative (Negative); Blood Urine 2+ (Negative); Color Urine Yellow; Glucose Urine UA Negative (Negative); Ketones Urine Trace (Negative); Leukocyte Esterase Urine Negative (Negative); Nitrite Urine Negative (Negative); Protein Urine 1+ (Negative); Specific Gravity Urine 1.015 (1.000-1.030); Urobilinogen Urine Negative (Negative)
[2020-02-23 04:37] LABS: Amphetamines+Metham, Urine Neg (Neg); Barbiturates, Urine Neg (Neg); Benzodiazepine, Urine Neg (Neg); Cocaine, Urine Neg (Neg); MDMA (Ecstacy), Urine Neg (Neg); Methadone, Urine Neg (Neg); Opiate, Urine Neg (Neg); Phencyclidine, Urine Neg (Neg)
[2020-02-23 04:41] LABS: Bacteria Urine Automated 1+ (Negative); RBC Urine Automated 0-4 /hpf (0-4)
[2020-02-23 06:41] LABS: Hematocrit (blood only) 43.8 % (42-52); Hemoglobin 15.1 g/dL (14.0-18.0); Mean Corpuscular Hemoglobin 30.3 pg (25-34); Mean Corpuscular Hgb Conc 34.5 g/dL (32-36); Mean Platelet Volume 11.1 fL (7.4-10.4); Platelet Count 140 K/uL (130-400); RDW Coefficient of Variation 12.9 % (11.5-14.5); RDW Standard Deviation 41.1 fL (36.4-46.3); Red Blood Count 4.98 M/uL (4.7-6.1)
[2020-02-23 07:15] LABS: BUN Creatinine Ratio 21.3 (10-20); Calcium 8.3 mg/dl (8.5-10.1); Creatinine Clr Calc Pharmacy 35.4 ml/min; Est GFR (African American) 49.2; Est GFR (Non-African American) 42.5; Magnesium 2.2 mg/dl (1.8-2.4); Potassium 3.6 mmol/L (3.5-5.1)
[2020-02-23] MEDS: PANTOprazole 40 MG TAB PO SCH (08:19)
[2020-02-23] MEDS: CHOLECALCIFEROL 1,000 UNITS 25 MCG TAB PO SCH (08:19)
[2020-02-23] MEDS: CALCITRIOL 0.25 MCG CAPSULE PO SCH (08:20)
[2020-02-23] MEDS: ASPIRIN 81 MG ECTAB PO SCH (08:20)
[2020-02-23] MEDS: METOPROLOL SUCC 50MG EXT REL TAB PO SCH (08:20)
[2020-02-23] MEDS: VITAMIN B COMPLEX TAB PO SCH (08:20)
--- NOTE | 2020-02-23 09:34 | Nephrology Progress Note ---
Date of Service February 23, 2020 Assessment & Plan (1) Acute renal failure: improving prerenal AMY from presenting creatinine 5.5 > 3.0 just 12 hrs later; this am improved to 1.6; has baseline creatinine 1.1. on presentation he had sbp in 80-90s; has rebounded nicely now to 110-120s. not anemic. C diff and covid negative. not oliguric -changed to LR w/ 20 mEq K but this was stopped ON per order due to to rapid serum sodium changes -labs as below -no urgent indication for dialysis; continue to monitor; doubt at this point he will need dialysis -no need for special dialysis/renal diet at this time (2) Electrolyte abnormality: severe hypokalemia w/ presenting K 2.6, minimal improvement to 2.8 at 12 hrs later despite aggressive repletion; he has massive K requirement clearly, despite renal failure. Has improving bicarb which was moderately low w/ emesis and improving mild hyponatremia. electrolyte disorders from dehydration. hospitalist plan was for same K - supplemented IVF same rate + 40 mEq po K x 1; pt had also had 60 mEq po K at 1600 today -will resume LR w/ 20 mEQ/L K same rate to complete the bag, approximately 600 mL; then continue lactated Ringer's without potassium supplementation same rate; orders in for these -recheck bmp 1600 today ordered Admission and Anticipated Discharge Date Admission Date: February 22, 2020 Subjective Diarrhea continues unchecked, with 3 loose bowel movement so far today. N.p.o. currently after liver ultrasound report for which is pending. Feeling stronger and better; no dyspnea including on exertion; no edema; no further dry heaves; denies orthopnea Review of Systems Review of Systems: All systems reviewed & are unremarkable except as noted in HPI & below Physical Exam Constitutional: well developed and well nourished; no acute distress On room air, maneuvers without difficulty and independently for exam Eyes: EOM intact bilaterally ENMT: Ears: no external ear abnormality Nose: no external nose abnormality Mouth: + dry oral mucous membranes Neck: no nuchal rigidity Respiratory: normal respiratory effort Auscultation: + diminished lung sounds Cardiovascular: RRR, no murmur, no edema Gastrointestinal (Abdomen): Inspection/Auscultation: + abdomen distended and normal bowel sounds Percussion/Palpation: abdomen soft; abdomen nontender Musculoskeletal: Extremities: strength 5/5 throughout Skin: no rashes, warm and dry Psychiatric: A+Ox3, euthymic affect Results & Data ([facility]) Vital Signs (Past 12 Hours) Vital Signs Temp Pulse Pulse Pulse Resp BP Pulse Ox 02/23/20 07:54 36.5 C 75 17 119/66 96 02/23/20 03:50 37.0 C 92 H 17 117/65 95 02/23/20 00:00 36.6 C 90 18 117/69 97 02/22/20 23:00 80 Laboratory Results 02/23/20 06:14 02/23/20 06:14 (1) Acute renal failure Acute renal failure type: unspecified Qualified Code(s): N17.9 - Acute kidney failure, unspecified
--- NOTE | 2020-02-23 10:28 | Ultrasound Report ---
US liver HISTORY: 74 years-old Male pancreatitis acute pancreatitis COMPARISON: CT abdomen and pelvis 02/22/2020 TECHNIQUE: Multiple real-time sonographic images of the abdominal right upper quadrant were obtained assessing grayscale appearance and color flow FINDINGS: Pancreas is partially obscured by bowel gas. Mild pancreatic atrophy. The liver is unremarkable. No h epatic mass lesion. Common bile duct is normal, 4 mm. The visualized gallbladder is unremarkable. No cholelithiasis, wall thickening or pericholecystic fluid. No hydronephrosis. Mild cortical thinning of the right kidney. Cyst of the mid to lower pole right ki dney, 3.9 x 2.8 x 3.7 cm. IMPRESSION: 1. No cholelithiasis or sonographic evidence of acute cholecystitis. 2. No biliary ductal dilation. ACT 112: Negative or not required by law. The above report was generated using voice recognition software. It may contain grammatical, syntax o r spelling errors. Electronically signed by: Lui Randhawa M.D. 02/23/2020 10:26 AM
--- NOTE | 2020-02-23 12:16 | Electrocardiogram Report ---
Test Reason : Blood Pressure : / mmHG Vent. Rate : 077 BPM Atrial Rate : 077 BPM P-R Int : 196 ms QRS Dur : 080 ms QT Int : 376 ms P-R-T Axes : 056 -11 019 degrees QTc Int : 425 ms Normal sinus rhythm Poor R wave progression, consider anterior ND vs. lead placement vs. LVH When compared with ECG of 22-FEB-2020 06:03, ST no longer depressed in Anterior leads QT has shortened Confirmed by Tommie Vee ([id number]) on 02/23/2020 12:16:22 PM Referred By: REFERRED SELF Confirmed By:Ronald Vee
[2020-02-23] MEDS: HEPARIN SODIUM/DEXTROSE 25,000 UNITS/500 ML BAG IV SCH (13:40)
--- NOTE | 2020-02-23 16:30 | Hospitalist Progress Note ---
Date of Service February 23, 2020 Assessment & Plan (1) Acute dehydration: due to nausea /vomiting /GI loss possible caused by viral gastroeneritis CT abdomen /pelvis no pathology dehydration improved with IV fluids clinically improved diet will be advanced to solid (2) Electrolyte abnormality: Hyponatremia , hypokalemia, low mg , due to above : corrected follow labs (3) Nausea & vomiting: (4) Diarrhea: possible viral illness COVID 19 negative ordered for PRN imodium (5) Acute renal failure: on admission Cr 5.52 in setting of severe dehydration (baseline Cr ~1.1) pre -renal /vol depletion , dehydration due to GI loss responded well with IV fluid resuscitation Cr 1.2 in afternoon lab apprecaite input form Nephrology (6) ST segment changes on electrocardiogram: Evidence of ST depression on V4-6 on initial EKG in setting of hypovolemia, electrolyte abnormalities. Troponin wnl. No chest pain -no evidence of coronary event troponin negative stable to be tx out of PCU (7) CAD (coronary artery disease): H/o acute anterolateral IA in 2011 2/2 total occlusion of the LAD diagonal artery status post POBA by Dr. Maier. Most recent TTE November 2018 with EF: 55-59%, base posterior wall hypokinesis, grade 1 diastolic dysfunction cont aspirin , cardiac meds (8) Lupus anticoagulant disorder: History of anticoagulation on coumadin. Has been held since 02/15 with Lovenox bridge in preparation of epidural injection y -cont bridge with IV heparin with coumadin till INR therapeutic . -Monitor daily INR (9) HTN (hypertension): Continue amlodipine. Holding lisinopril in setting of AMY. (10) Parathyroid abnormality: Continue calcitriol DVT Ppx: IV heparin, resume coumadin Code status: FULL PCP: Eveline Dispo: expected to be discharged home with medically stable ordered for PT/OT Admission and Anticipated Discharge Date Admission Date: February 22, 2020 Subjective feels much better today no nausea/vomiting still having loose bowel movement no fever or chills no abdominal pain improvement of energy no dizzy spell or lightheadedness Review of Systems Review of Systems: All systems reviewed & are unremarkable except as noted in HPI & below Gastrointestinal: + diarrhea/loose stools; no abdominal pain, no nausea and no vomiting Physical Exam Constitutional: WD/WN, vitals as above + ill appearing and + thin; no acute distress Eyes: PERRL, conjunctivae normal, anicteric sclerae ENMT: external ear and nose normal, oropharynx normal Neck: trachea midline, no thyromegaly Respiratory: normal respiratory effort, lungs clear to auscultation Cardiovascular: RRR, no murmur, no edema Gastrointestinal (Abdomen): Percussion/Palpation: abdomen soft; abdomen nontender Musculoskeletal: no cyanosis or clubbing, extremities motor strength 5/5 Skin: no rashes, warm and dry Neurologic: PERRL, EOMI, accommodation nl, no face palsy, no dysarthria Psychiatric: A+Ox3, euthymic affect Results & Data Results & Data ([facility]) Vital Signs (Past 12 Hours) Vital Signs Temp Pulse Pulse Resp BP Pulse Ox 02/23/20 15:35 36.7 C 58 L 20 134/71 95 02/23/20 12:04 36.4 C L 67 17 128/61 96 02/23/20 07:54 36.5 C 75 17 119/66 96 02/23/20 07:45 86 (1) Acute renal failure Acute renal failure type: unspecified Qualified Code(s): N17.9 - Acute kidney failure, unspecified
[2020-02-23 16:54] LABS: BUN Creatinine Ratio 22.6 (10-20); Calcium 8.8 mg/dl (8.5-10.1); Creatinine Clr Calc Pharmacy 45.9 ml/min; Est GFR (African American) 67.5; Est GFR (Non-African American) 58.2; Potassium 3.4 mmol/L (3.5-5.1)
[2020-02-23] MEDS: WARFARIN SOD 5 MG TAB PO SCH ×2 (17:24→20:48)
[2020-02-23] MEDS: LACTATED RINGER'S 1,000 ML IV SCH (17:27)
[2020-02-23] MEDS ORDERED: WARFARIN SOD 2.5 MG TAB PO STA (19:08)
[2020-02-23] MEDS: POTASSIUM CHLORIDE 20 MEQ TABCR PO SCH (20:48)
[2020-02-24] MEDS: LACTATED RINGER'S 1,000 ML IV SCH ×2 (05:57→07:47)
[2020-02-24 06:12] LABS: Hematocrit (blood only) 42.5 % (42-52); Hemoglobin 15.1 g/dL (14.0-18.0); Mean Corpuscular Hemoglobin 30.8 pg (25-34); Mean Corpuscular Hgb Conc 35.5 g/dL (32-36); Mean Corpuscular Volume 86.6 fL (80-100); Mean Platelet Volume 11.1 fL (7.4-10.4); Platelet Count 123 K/uL (130-400); RDW Coefficient of Variation 12.9 % (11.5-14.5); RDW Standard Deviation 41.1 fL (36.4-46.3); Red Blood Count 4.91 M/uL (4.7-6.1); White Blood Count 2.57 K/uL (4.8-10.8)
[2020-02-24 06:39] LABS: INR 3.7 (0.9-1.1); Partial Thromboplastin Ratio 2.9; Prothrombin Time 36.5 Seconds (9.0-12.0)
[2020-02-24 06:43] LABS: Partial Thromboplastin Time 81.4 Seconds (21.0-31.0)
[2020-02-24 06:53] LABS: BUN Creatinine Ratio 19.3 (10-20); Calcium 8.9 mg/dl (8.5-10.1); Creatinine Clr Calc Pharmacy 59.2 ml/min; Est GFR (African American) 96.9; Est GFR (Non-African American) 83.6; Magnesium 1.9 mg/dl (1.8-2.4); Potassium 3.2 mmol/L (3.5-5.1)
[2020-02-24] MEDS: PANTOprazole 40 MG TAB PO SCH (07:47)
[2020-02-24] MEDS: ASPIRIN 81 MG ECTAB PO SCH (07:47)
[2020-02-24] MEDS: AMLODIPINE BESYLATE 5 MG TAB PO SCH (07:47)
[2020-02-24] MEDS: POTASSIUM CHLORIDE 20 MEQ TABCR PO SCH ×2 (07:47→20:34)
[2020-02-24] MEDS: CALCITRIOL 0.25 MCG CAPSULE PO SCH (07:48)
[2020-02-24] MEDS: METOPROLOL SUCC 50MG EXT REL TAB PO SCH (07:48)
[2020-02-24] MEDS: VITAMIN B COMPLEX TAB PO SCH (07:48)
[2020-02-24] MEDS: CHOLECALCIFEROL 1,000 UNITS 25 MCG TAB PO SCH (07:49)
[2020-02-24] MEDS: CIPROFLOXACIN 500 MG TAB PO SCH ×2 (10:19→20:34)
--- NOTE | 2020-02-24 13:16 | Nephrology Progress Note ---
Date of Service February 24, 2020 Assessment & Plan (1) Acute renal failure: resolved prerenal AMY from presenting creatinine 5.5 > 3.0 just 12 hrs later; this am improved to 1.6; has baseline creatinine 1.1. on presentation he had sbp in 80-90s; has rebounded nicely now to 110-120s. not anemic. C diff and covid negative. not oliguric. salmonella + in stool -changed to LR w/ 40 mEq K/L at 80 ml/hr -labs daily (2) Electrolyte abnormality: severe hypokalemia w/ presenting K 2.6, minimal improvement to 2.8 at 12 hrs later despite aggressive repletion; he has massive K requirement clearly, despite renal failure. Has improving bicarb which was moderately low w/ emesis and improving mild hyponatremia. electrolyte disorders from dehydration. -will change to LR w/ 40 mEQ/L K at 80 mL hourly; so ordered -cont 40 mEq bid po K ; also had another 40 mEq po as in addition -recheck bmp 1600 today ordered Admission and Anticipated Discharge Date Admission Date: February 22, 2020 Subjective cont to feel improved; ongoing diarrhea however and tested + for salmonella; less po b/c food not salty enough for him he says Review of Systems Review of Systems: All systems reviewed & are unremarkable except as noted in HPI & below Physical Exam Constitutional: well developed and well nourished; no acute distress on RA manevuers readily for exam Eyes: EOM intact bilaterally ENMT: Ears: no external ear abnormality Nose: no external nose abnormality Mouth: + dry oral mucous membranes Neck: no nuchal rigidity Respiratory: normal respiratory effort Auscultation: + diminished lung sounds Cardiovascular: RRR, no murmur, no edema Gastrointestinal (Abdomen): Inspection/Auscultation: + abdomen distended and normal bowel sounds Percussion/Palpation: abdomen soft; abdomen nontender Musculoskeletal: Extremities: strength 5/5 throughout Skin: no rashes, warm and dry Psychiatric: A+Ox3, euthymic affect Results & Data ([facility]) Vital Signs (Past 12 Hours) Vital Signs Temp Pulse Pulse Resp BP BP Pulse Ox 02/24/20 11:41 36.5 C 76 16 139/65 94 02/24/20 07:31 76 02/24/20 07:23 36.8 C 68 16 138/67 96 02/24/20 03:12 36.7 C 79 16 150/72 H 97 Laboratory Results 02/24/20 05:46 02/24/20 05:46 (1) Acute renal failure Acute renal failure type: unspecified Qualified Code(s): N17.9 - Acute kidney failure, unspecified
[2020-02-24] MEDS: POTASSIUM CHLORIDE 40 MEQ in LACTATED RINGER'S 1,000 ML IV SCH (14:15)
[2020-02-24 14:30] LABS: Partial Thromboplastin Ratio 2.1
[2020-02-24 14:42] LABS: Partial Thromboplastin Time 57.2 Seconds (21.0-31.0)
--- NOTE | 2020-02-24 15:27 | Electrocardiogram Report ---
Test Reason : Blood Pressure : / mmHG Vent. Rate : 074 BPM Atrial Rate : 074 BPM P-R Int : 196 ms QRS Dur : 082 ms QT Int : 384 ms P-R-T Axes : 052 -18 044 degrees QTc Int : 426 ms Normal sinus rhythm Confirmed by Tommie Vee ([id number]) on 02/24/2020 3:26:54 PM Referred By: REFERRED SELF Confirmed By:Ronald Vee
[2020-02-24] MEDS ORDERED: WARFARIN SOD 2.5 MG TAB PO ONE (16:00)
[2020-02-24] MEDS: WARFARIN SOD 5 MG TAB PO SCH (16:03)
[2020-02-24 17:04] LABS: BUN Creatinine Ratio 14.7 (10-20); Calcium 9.5 mg/dl (8.5-10.1); Creatinine Clr Calc Pharmacy 56.1 ml/min; Est GFR (African American) 91.6; Potassium 3.6 mmol/L (3.5-5.1)
--- NOTE | 2020-02-24 17:40 | Hospitalist Progress Note ---
Date of Service February 24, 2020 Assessment & Plan (1) Diarrhea: (2) Nausea & vomiting: Present on admission with recurrent diarrhea associated with nausea and vomiting CT abd/pelvis showed no evidence of bowel obstruction. No evidence of free air Stool cx Positive for Salmonella species Continue IVF Since his diarrhea is not getting better will treat the Salmonella Starting on cipro 500mg BID Continue monitor electrolytes (3) Acute renal failure: (4) Acute dehydration: Due to recurrent diarrhea Creatinine on admission 5.5 with baseline creatinine 1.1 CT abdomen /pelvis showed equivocal punctate renal calculi. No hydronephrosis. No ureteral or bladder calculi identified Continue IVF Nephrology on board Creatinine normalized at 0.8 today Continue to avoid nephrotoxic agents Resolved (5) Electrolyte abnormality: Due to recurrent diarrhea Continue Potassium supplement Case discussed with nephrology Monitor BMP (6) ST segment changes on electrocardiogram: Evidence of ST depression on V4-6 on initial EKG in setting of hypovolemia, electrolyte abnormalities. Denies any chest pain No evidence of coronary event Troponin negative Stable (7) CAD (coronary artery disease): H/o acute anterolateral NH in 2011 2/2 total occlusion of the LAD diagonal artery status post POBA by Dr. Maier. Most recent TTE November 2018 with EF: 55-59%, base posterior wall hypokinesis, grade 1 diastolic dysfunction contiinue aspirin and metoprolol Will resume statin (8) Lupus anticoagulant disorder: History of anticoagulation on coumadin . Coumadin was on hold since 02/15 with Lovenox bridge in preparation of epidural injection Was starting on heparin drip with coumadin since procedure was cancelled INR 3.7 today, so heparin drip discontinued Will hold today dose coumadin (9) HTN (hypertension): BP stable Continue amlodipine. 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 DVT Ppx: IV heparin drip d/c INR 3.7 today ( Will hold today dose heparin Code status: FULL PCP: Eveline Dispo: Will discharge once medically stable Admission and Anticipated Discharge Date Admission Date: February 22, 2020 Subjective Pt was seen and examined Lying in bed with no distress Pt said that he continued to have recurrent watery diarrhea He said that he had more than 7 BM today He tolerated his diet Denies any chest pain, palpitation, dizziness and SOB Physical Exam Physical Exam: General- No acute distress Head- atraumatic Eyes- PERRL, EOMI, ENT- oropharynx clear Neck- supple, no JVD Lungs- clear to auscultation Heart- regular rhythm; no murmur Abdomen- normal bowel sounds, soft, nontender Extremities- no calf tenderness Neuro- alert, oriented x 3; PERRL, EOMI; no facial palsy; no dysarthria Skin- warm & dry Results & Data Results & Data ([facility]) Vital Signs (Past 12 Hours) Vital Signs Temp Pulse Pulse Resp BP BP Pulse Ox 02/24/20 16:00 36.6 C 64 18 120/64 92 02/24/20 15:08 69 02/24/20 11:41 36.5 C 76 16 139/65 94 02/24/20 07:31 76 02/24/20 07:23 36.8 C 68 16 138/67 96 (1) Acute renal failure Acute renal failure type: unspecified Qualified Code(s): N17.9 - Acute kidney failure, unspecified
[2020-02-25] MEDS: POTASSIUM CHLORIDE 40 MEQ in LACTATED RINGER'S 1,000 ML IV SCH ×2 (03:00→16:15)
[2020-02-25 07:04] LABS: BUN Creatinine Ratio 11.9 (10-20); Creatinine Clr Calc Pharmacy 62.2 ml/min; Est GFR (African American) 98.8; Est GFR (Non-African American) 85.2; Potassium 4.1 mmol/L (3.5-5.1)
[2020-02-25] MEDS: CIPROFLOXACIN 500 MG TAB PO SCH ×2 (08:27→20:34)
[2020-02-25] MEDS: CHOLECALCIFEROL 1,000 UNITS 25 MCG TAB PO SCH (08:27)
[2020-02-25] MEDS: POTASSIUM CHLORIDE 20 MEQ TABCR PO SCH ×2 (08:27→20:35)
[2020-02-25] MEDS: AMLODIPINE BESYLATE 5 MG TAB PO SCH (08:27)
[2020-02-25] MEDS: ASPIRIN 81 MG ECTAB PO SCH (08:28)
[2020-02-25] MEDS: VITAMIN B COMPLEX TAB PO SCH (08:28)
[2020-02-25] MEDS: METOPROLOL SUCC 50MG EXT REL TAB PO SCH (08:28)
[2020-02-25] MEDS: PANTOprazole 40 MG TAB PO SCH (08:28)
[2020-02-25] MEDS: CALCITRIOL 0.25 MCG CAPSULE PO SCH (08:28)
[2020-02-25 10:20] LABS: INR 8.2 (0.9-1.1)
--- NOTE | 2020-02-25 12:02 | Nephrology Progress Note ---
Date of Service February 25, 2020 Assessment & Plan (1) Acute renal failure: resolved prerenal AMY from presenting creatinine 5.5 > 3.0 just 12 hrs later; this am improved further to 0.9; has baseline creatinine 1.1. on presentation he had sbp in 80-90s; has rebounded nicely now to 110-120s. not anemic. C diff and covid negative. not oliguric. salmonella + in stool -changed to LR w/ 40 mEq K/L at 80 ml/hr which should continue until he has less than 2 bowel movements per 24 hours -labs daily (2) Electrolyte abnormality: severe hypokalemia w/ presenting K 2.6, minimal improvement to 2.8 at 12 hrs later despite aggressive repletion; he has massive K requirement clearly, despite renal failure. Has improving bicarb which was moderately low w/ emesis and improving mild hyponatremia. electrolyte disorders from dehydration. -Continue LR w/ 40 mEQ/L K at 80 mL hourly -cont 40 mEq bid po K -Needs daily basic metabolic panel Will sign off; pls call if ? Care coordinated w/ Dr Henderson Discharge recommendations (discharge summary updated; d/c discharge planner alerted): -Discharge on 40 mEq twice daily potassium Hold lisinopril at hospital discharge Needs PCP appointment within 7 days of discharge -Recommend weekly basic metabolic panel to be ordered by nephrology x4 weeks after hospital discharge and follow-up with Dr. Heart or nephrology PA at [facility] 4 to 6 weeks after hospital discharge Admission and Anticipated Discharge Date Admission Date: February 22, 2020 Subjective Continues to feel improved. So far by late morning 2 bowel movements today. Ate a full meal tolerated. No shortness of breath. No edema. Review of Systems Review of Systems: All systems reviewed & are unremarkable except as noted in HPI & below Physical Exam Constitutional: well developed and well nourished; no acute distress On room air, maneuvers readily for exam Eyes: EOM intact bilaterally ENMT: Ears: no external ear abnormality Nose: no external nose abnormality Mouth: + dry oral mucous membranes Neck: no nuchal rigidity Respiratory: normal respiratory effort Auscultation: + diminished lung sounds Cardiovascular: RRR, no murmur, no edema Gastrointestinal (Abdomen): Inspection/Auscultation: + abdomen distended and normal bowel sounds Percussion/Palpation: abdomen soft; abdomen nontender Musculoskeletal: Extremities: strength 5/5 throughout Skin: no rashes, warm and dry Neurologic: Moves all extremities, fluent speech, no tremor Psychiatric: A+Ox3, euthymic affect Results & Data ([facility]) Vital Signs (Past 12 Hours) Vital Signs Temp Pulse Pulse Resp BP BP Pulse Ox 02/25/20 11:27 67 02/25/20 11:20 36.8 C 67 16 117/63 96 02/25/20 07:13 36.6 C 68 16 134/66 94 02/25/20 03:51 36.8 C 83 18 126/77 96 02/25/20 02:06 68 Laboratory Results 02/24/20 05:46 02/25/20 06:04 (1) Acute renal failure Acute renal failure type: unspecified Qualified Code(s): N17.9 - Acute kidney failure, unspecified
[2020-02-25] MEDS ORDERED: WARFARIN SOD 2.5 MG TAB PO SCH (16:00)
--- NOTE | 2020-02-25 19:37 | Hospitalist Progress Note ---
Date of Service February 25, 2020 Assessment & Plan (1) Diarrhea: (2) Nausea & vomiting: Salmonella gastroenteritis Present on admission with recurrent diarrhea associated with nausea and vomiting CT abd/pelvis showed no evidence of bowel obstruction. No evidence of free air Stool cx Positive for Salmonella species Continue IVF Since his diarrhea is not getting better will treat the Salmonella Starting on cipro 500mg BID Continue monitor electrolytes Clinically improves (3) Acute renal failure: (4) Acute dehydration: Due to recurrent diarrhea Creatinine on admission 5.5 with baseline creatinine 1.1 CT abdomen /pelvis showed equivocal punctate renal calculi. No hydronephrosis. No ureteral or bladder calculi identified Continue IVF Nephrology on board Creatinine normalized at 0.8 today Continue to avoid nephrotoxic agents Resolved (5) Electrolyte abnormality: Due to recurrent diarrhea Continue Potassium supplement Case discussed with nephrology Continue IVF for now Check BMP weekly on discharge Follow up with Nephrology (6) ST segment changes on electrocardiogram: Evidence of ST depression on V4-6 on initial EKG in setting of hypovolemia, electrolyte abnormalities. Denies any chest pain No evidence of coronary event Troponin negative Stable (7) CAD (coronary artery disease): H/o acute anterolateral DC in 2011 2/2 total occlusion of the LAD diagonal artery status post POBA by Dr. Maier. Most recent TTE November 2018 with EF: 55-59%, base posterior wall hypokinesis, grade 1 diastolic dysfunction contiinue aspirin and metoprolol Will resume statin (8) Lupus anticoagulant disorder: History of anticoagulation on coumadin . Coumadin was on hold since 02/15 with Lovenox bridge in preparation of epidural injection Was starting on heparin drip with coumadin since procedure was cancelled INR above 8 today, so heparin drip discontinued Continue to hold coumadin (9) Supratherapeutic INR: Possible related to gastroenteritis INR increased to 8 Continue to hold coumadin Will monitor for bleeding and if develop will give vit K (10) HTN (hypertension): BP stable Continue amlodipine. lisinopril has been on hold due to AMY Will continue to hold lisinopril on discharge Follow BP (11) Parathyroid abnormality: Continue calcitriol DVT Ppx: IV heparin drip d/c INR above 8 today ( Will hold today dose heparin Code status: FULL PCP: Eveline Dispo: Will discharge once medically stable Admission and Anticipated Discharge Date Admission Date: February 22, 2020 Subjective Pt was seen and examined Lying in bed with no distress Pt said that the diarrhea improves today He said that he only has 1 episode so far today He tolerated his diet Denies any chest pain, palpitation, dizziness and SOB Physical Exam Physical Exam: General- No acute distress Head- atraumatic Eyes- PERRL, EOMI, ENT- oropharynx clear Neck- supple, no JVD Lungs- clear to auscultation Heart- regular rhythm; no murmur Abdomen- normal bowel sounds, soft, nontender Extremities- no calf tenderness Neuro- alert, oriented x 3; PERRL, EOMI; no facial palsy; no dysarthria Skin- warm & dry Results & Data Results & Data ([facility]) Vital Signs (Past 12 Hours) Vital Signs Temp Pulse Pulse Resp BP BP Pulse Ox 02/25/20 16:00 36.6 C 61 18 122/55 L 95 02/25/20 15:36 65 02/25/20 11:27 67 02/25/20 11:20 36.8 C 67 16 117/63 96 (1) Acute renal failure Acute renal failure type: unspecified Qualified Code(s): N17.9 - Acute kidney failure, unspecified
[2020-02-26] MEDS: POTASSIUM CHLORIDE 40 MEQ in LACTATED RINGER'S 1,000 ML IV SCH (03:44)
[2020-02-26] MEDS: POTASSIUM CHLORIDE 20 MEQ TABCR PO SCH (08:08)
[2020-02-26] MEDS: CIPROFLOXACIN 500 MG TAB PO SCH (08:09)
[2020-02-26 08:19] LABS: INR 5.5 (0.9-1.1); Prothrombin Time 53.1 Seconds (9.0-12.0)
[2020-02-26] MEDS: METOPROLOL SUCC 50MG EXT REL TAB PO SCH (08:42)
[2020-02-26] MEDS: CALCITRIOL 0.25 MCG CAPSULE PO SCH (08:42)
[2020-02-26] MEDS: CHOLECALCIFEROL 1,000 UNITS 25 MCG TAB PO SCH (08:42)
[2020-02-26] MEDS: VITAMIN B COMPLEX TAB PO SCH (08:42)
[2020-02-26] MEDS: PANTOprazole 40 MG TAB PO SCH (08:42)
[2020-02-26] MEDS: ASPIRIN 81 MG ECTAB PO SCH (08:42)
[2020-02-26 08:43] LABS: BUN Creatinine Ratio 7.7 (10-20); Calcium 9.4 mg/dl (8.5-10.1); Creatinine Clr Calc Pharmacy 69.1 ml/min; Est GFR (African American) 101.8; Est GFR (Non-African American) 87.8; Potassium 5.5 mmol/L (3.5-5.1)
[2020-02-26] MEDS: AMLODIPINE BESYLATE 5 MG TAB PO SCH (08:43)
[2020-02-26] MEDS ORDERED: SODIUM BICARBONATE 8.4% 150 MEQ in DEXTROSE 5% 1,000 ML IV STA (08:47)
--- NOTE | 2020-02-26 08:55 | Nephrology Progress Note ---
Date of Service February 26, 2020 Assessment & Plan (1) Hyperkalemia: had signed off yesterday but noted k today 5.5 on massive K supplements: 40 meq bid po and LR w/ 40 mEq K / L -stopped K supplements po and K rich fluid; ensured he did not receive AM K dose -ordered stat sodium bicarb gtt @ 125 mL/hr x 1L -recheck bmp ordered for 1500 -he will need further fluids thereafter most likely and will determine type/rate based on 1500 labs and clinical status -would at this time continue to recommend he be d/c on bid K supplements 40 meQ but will need to monitor -Dr Henderson alerted to above -will continue to follow Note from yesterday my Discharge recommendations (discharge summary updated; d/c business continuity planner alerted) >> at this time I would not change these discharge recommendations but changes may follow depending on the course today: -Discharge on 40 mEq twice daily potassium Hold lisinopril at hospital discharge Needs PCP appointment within 7 days of discharge -Recommend weekly basic metabolic panel to be ordered by nephrology x4 weeks after hospital discharge and follow-up with Dr. Heart or nephrology PA at [facility] 4 to 6 weeks after hospital discharge Admission and Anticipated Discharge Date Admission Date: February 22, 2020 Subjective Continues to feel improved as he ambulates about the room and up to the bathroom. Remains on room air. Tolerating p.o. Bowel movements are firming up and somewhat less frequent to my: 1 so far today this morning. Denies voiding concerns or exertional dyspnea Review of Systems Review of Systems: All systems reviewed & are unremarkable except as noted in HPI & below Physical Exam Constitutional: well developed and well nourished; no acute distress Ambulatory without blood donor unit assistant on room air Eyes: EOM intact bilaterally ENMT: Ears: no external ear abnormality Nose: no external nose abnormality Mouth: + dry oral mucous membranes Neck: no nuchal rigidity Respiratory: normal respiratory effort Auscultation: + diminished lung sounds Cardiovascular: RRR, no murmur, no edema Gastrointestinal (Abdomen): Inspection/Auscultation: + abdomen distended and normal bowel sounds Percussion/Palpation: abdomen soft; abdomen nontender Musculoskeletal: Extremities: strength 5/5 throughout Skin: no rashes, warm and dry Neurologic: Moves all extremities, fluent speech, no tremor Psychiatric: A+Ox3, euthymic affect Results & Data ([facility]) Vital Signs (Past 12 Hours) Vital Signs Temp Pulse Pulse Resp BP BP Pulse Ox 02/26/20 08:16 65 02/26/20 07:21 36.5 C 63 18 151/79 H 96 02/26/20 04:00 36.6 C 64 16 133/80 96 02/25/20 23:34 72 02/25/20 23:00 36.6 C 67 16 123/69 95 Laboratory Results 02/24/20 05:46 02/26/20 07:48
[2020-02-26 15:26] LABS: BUN Creatinine Ratio 9.6 (10-20); Calcium 9.1 mg/dl (8.5-10.1); Est GFR (African American) 95.2; Est GFR (Non-African American) 82.2; Potassium 4.7 mmol/L (3.5-5.1)
--- NOTE | 2020-02-26 17:17 | Hospitalist Progress Note ---
Date of Service February 26, 2020 Assessment & Plan (1) Diarrhea: (2) Nausea & vomiting: Salmonella gastroenteritis Present on admission with recurrent diarrhea associated with nausea and vomiting CT abd/pelvis showed no evidence of bowel obstruction. No evidence of free air Stool cx Positive for Salmonella species received IVF Since his diarrhea is not getting better, we decided to treat the Salmonella Cipro 500mg BID was started Continue monitor electrolytes Clinically improves significantly Will complete the course of the antibiotic (3) Acute renal failure: (4) Acute dehydration: Due to recurrent diarrhea Creatinine on admission 5.5 with baseline creatinine 1.1 CT abdomen /pelvis showed equivocal punctate renal calculi. No hydronephrosis. No ureteral or bladder calculi identified Received IVF Nephrology on board Creatinine normalized at 0.9 Continue to avoid nephrotoxic agents Continue to hold Lisinopril on discharge as per nephrology Resolved (5) Electrolyte abnormality: Due to recurrent diarrhea Potassium increased to 5.5 this morning IVF with lactate + potassium was discontinued Repeat BMP later was 4.7 Nephrology on board case discussed with personal lines sales executive that recommended to discharge on potassium supplement 40meq daily Check BMP on Saturday Recommend weekly basic metabolic panel to be ordered by nephrology x4 weeks after hospital discharge and follow-up with Dr. Heart or nephrology PA at [facility] 4 to 6 weeks after hospital discharge (6) ST segment changes on electrocardiogram: Evidence of ST depression on V4-6 on initial EKG in setting of hypovolemia, electrolyte abnormalities. Denies any chest pain No evidence of coronary event Troponin negative Stable (7) CAD (coronary artery disease): H/o acute anterolateral DC in 2011 2/2 total occlusion of the LAD diagonal artery status post POBA by Dr. Maier. Most recent TTE November 2018 with EF: 55-59%, base posterior wall hypokinesis, grade 1 diastolic dysfunction continue aspirin and metoprolol Will resume statin on discharge (8) Lupus anticoagulant disorder: History of anticoagulation on coumadin . Coumadin was on hold since 02/15 with Lovenox bridge in preparation of epidural injection Was starting on heparin drip with coumadin since procedure was cancelled INR above 5 today, so heparin drip discontinued Continue to hold coumadin (9) Supratherapeutic INR: Possible related to recurrent diarrhea INR increased to 8.3, then trending down to 5.5 today Case discussed with Mireille Hugo at the [facility] that agreed to continue to hold coumadin for today and tomorrow Coumadin 2.5 to be resumed on Saturday, then check INR on Saturday Follow up with the [facility] on Saturday at 8:40 AM (10) HTN (hypertension): BP stable Continue amlodipine. lisinopril has been on hold due to AMY Will continue to hold lisinopril on discharge Follow BP (11) Parathyroid abnormality: Continue calcitriol Elevate Lipase Denies any abdominal discomfort, Nausea and Vomiting No sign of acute pancreatitis Follow up outpatient DVT Ppx: IV heparin drip d/c INR above 8 today ( Will hold today dose heparin Code status: FULL PCP: Eveline Dispo: Discharge home today Follow up with the [facility] Follow up with nephrology in 4 to 6 weeks Admission and Anticipated Discharge Date Admission Date: February 22, 2020 Subjective Pt was seen and examined Sitting in bed with no distress Pt said that his stools his form now He said that he did not have a BM yet today He said that he feels better Denies any chest pain, palpitation, dizziness and SOB Physical Exam Physical Exam: General- No acute distress Head- atraumatic Eyes- PERRL, EOMI, ENT- oropharynx clear Neck- supple, no JVD Lungs- clear to auscultation Heart- regular rhythm; no murmur Abdomen- normal bowel sounds, soft, nontender Extremities- no calf tenderness Neuro- alert, oriented x 3; PERRL, EOMI; no facial palsy; no dysarthria Skin- warm & dry Results & Data Results & Data ([facility]) Vital Signs (Past 12 Hours) Vital Signs Temp Pulse Pulse Resp BP Pulse Ox 02/26/20 15:10 65 02/26/20 11:42 36.5 C 66 16 122/76 97 02/26/20 08:16 65 02/26/20 07:21 36.5 C 63 18 151/79 H 96 (1) Acute renal failure Acute renal failure type: unspecified Qualified Code(s): N17.9 - Acute kidney failure, unspecified
--- NOTE | 2020-02-27 08:38 | Discharge Summary ---
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 Symptoms began 3 days ago. Patient had taken second dose of shingles vaccine that morning, so attributed symptoms to side effect of vaccination. Had nausea the remainder of Saturday and into the weekend. Then developed diffuse "tight" abdominal pain with associated green diarrhea the following day and endorses 25 episodes total. Denies any mucus or blood. Began dry heaving yesterday. Has not been able to keep any food down. Denies any sick contacts or eating unusual food. Has felt lightheaded upon standing when ambulating to the bathroom but denies any syncopal episodes. No fever, chills, headache, confusion, cough, chest pain, shortness of breath, dysuria, hematuria or constipation. Was due for epidural injection with Dr. Everett today so has been bridging with lovenox. Last dose of coumadin was 02/16/20. Admission Exam Per Admitting Provider General Appearance: WD/WN, vitals as above, appears acutely ill, pleasant, conversing easily Head: normocephalic, atraumatic Eyes: normal inspection, PERRL, conjunctivae normal, anicteric sclerae ENT: external ear and nose normal, dry mucosal membranes of oropharynx Neck: trachea midline, no thyromegaly normal visual inspection Respiratory: normal respiratory effort, lungs clear to auscultation, no wheeze, rales, rhonchi. Normal insp/exp effort, no accessory muscle use Cardiovascular: regular rate, rhythm, no murmur, normal peripheral pulses. Vessels: no JVD or carotid bruit Chest: normal inspection of chest Abdomen/GI: hyperactive bowel sounds, soft, nontender, no hepatosplenomegaly Extremities/Musculoskeletal: no cyanosis or clubbing, extremities motor strength 5/5 Neurologic: PERRL, EOMI, accommodation nl, no face palsy, no dysarthria, CN's II-XI intact bilaterally and moves all extremities Psychiatric: A+Ox3, euthymic affect Skin: no rashes, normal color, warm/dry Principal Diagnosis Diarrhea Salmonella gastroenteritis Acute renal failure Acute dehydration Electrolyte abnormality CAD (coronary artery disease) Lupus anticoagulant disorder Supratherapeutic INR HTN (hypertension) Discharge Exam General- No acute distress Head- atraumatic Eyes- PERRL, EOMI, ENT- oropharynx clear Neck- supple, no JVD Lungs- clear to auscultation Heart- regular rhythm; no murmur Abdomen- normal bowel sounds, soft, nontender Extremities- no calf tenderness Neuro- alert, oriented x 3; PERRL, EOMI; no facial palsy; no dysarthria Skin- warm & dry Discharge Data Allergies Allergy/AdvReac Type Severity Reaction Status Date / Time Beta-Blockers Allergy Unknown Verified 02/22/20 06:41 (Beta-Adrenergic Bloc Consultations 02/22/20 07:23 ED Decision to Admit Stat 02/22/20 12:36 Consult Case Management - Discharge Planning Routine Consult Nephrology Routine Ordered Studies 02/22/20 11:02 CT abd pelvis wo con Stat 02/23/20 09:00 US liver Routine XR chest 1V portable CLINICAL HISTORY: Shortness of breath COMPARISON STUDY: 03/01/2018 FINDINGS: The heart is top normal in size. There is no failure. There is no focal pulmonary consolidation. There is no failure. There are minor left basilar subsegmental atelectatic changes. There are old right-sided rib deformities.[ IMPRESSION: No active disease in the chest. ACT 112: Negative or not required by law. Electronically signed by: Nacho Sandoval M.D. 02/22/2020 8:46 AM Dictated: 02/22/20 0845 Transcribed: 02/22/20 0845 XR KUB/Abdomen 1 view CLINICAL HISTORY: nausea/vomiting /eval for bowel obstruction COMPARISON STUDY: No previous studies for comparison. FINDINGS: There are small bowel loops the upper limits of normal in diameter. There are no transition zones indicate bowel obstruction. There are postsurgical changes of a total right hip arthroplasty. Multiple metallic fragments project over the right hip region. There are mild osteophytic changes of the left hip. IMPRESSION: No conventional radiographic evidence of bowel obstruction. ACT 112: Negative or not required by law. Electronically signed by: Nacho Sandoval M.D. 02/22/2020 8:47 AM Dictated: 02/22/20 0846 Transcribed: 02/22/[address] SCAN OF THE ABDOMEN AND PELVIS WITHOUT CONTRAST CLINICAL HISTORY: Abdominal pain, nausea, vomiting. COMPARISON STUDY: July 2019 TECHNIQUE: CT scan of the abdomen and pelvis was performed from the lung bases to the proximal femurs. Images are reviewed in the axial, sagittal, and coronal planes. IV contrast was not administered for this examination. A dose lowering technique was utilized adhering to the principles of ALARA. CT DOSE: 420.88 mGycm FINDINGS: Lower chest: There are minor dependent atelectatic changes. A small hiatal hernia Liver: The unenhanced liver is normal in size, contour, and attenuation. There is no intrahepatic biliary ductal dilatation. Gallbladder: Unremarkable. Spleen: Normal in size and attenuation. Pancreas: Unremarkable. Adrenal glands: Unremarkable. Kidneys: There is a 3.5 cm right renal cyst. There is no hydronephrosis. There are equivocal punctate renal calculi... Bowel: There are no transition zones indicate bowel obstruction. There is no evidence of acute diverticulitis. The appendix appears normal. There are several small diverticula particular of the distal ileum. Peritoneum: There is no intraperitoneal free air or abdominal ascites. Vasculature: The abdominal aorta is normal in course and caliber. Adenopathy: None. Pelvic viscera: There is mild prostatomegaly. There are postsurgical changes of a total right hip arthroplasty with secondary artifact. Skeletal structures: No destructive osseous lesions are seen. IMPRESSION: 1. No evidence of bowel obstruction. No evidence of free air 2. Small hiatal hernia 3. Equivocal punctate renal calculi. No hydronephrosis. No ureteral or bladder calculi identified 4. Distal ileal diverticulosis. 5. No evidence of acute appendicitis. No evidence of acute diverticulitis. ACT 112: Negative or not required by law. Electronically signed by: Nacho Sandoval M.D. 02/22/2020 12:35 PM Dictated: 02/22/20 1225 Transcribed: 02/22/20 1225 US liver HISTORY: 74 years-old Male pancreatitis acute pancreatitis COMPARISON: CT abdomen and pelvis 02/22/2020 TECHNIQUE: Multiple real-time sonographic images of the abdominal right upper quadrant were obtained assessing grayscale appearance and color flow FINDINGS: Pancreas is partially obscured by bowel gas. Mild pancreatic atrophy. The liver is unremarkable. No hepatic mass lesion. Common bile duct is normal, 4 mm. The visualized gallbladder is unremarkable. No cholelithiasis, wall thickening or pericholecystic fluid. No hydronephrosis. Mild cortical thinning of the right kidney. Cyst of the mid to lower pole right kidney, 3.9 x 2.8 x 3.7 cm. IMPRESSION: 1. No cholelithiasis or sonographic evidence of acute cholecystitis. 2. No biliary ductal dilation. ACT 112: Negative or not required by law. The above report was generated using voice recognition software. It may contain grammatical, syntax or spelling errors. Electronically signed by: Lui Randhawa M.D. 02/23/2020 10:26 AM Dictated: 02/23/20 1023 Transcribed: 02/23/20 1023 Hospital Course (1) Diarrhea: (2) Nausea & vomiting: Salmonella gastroenteritis Present on admission with recurrent diarrhea associated with nausea and vomiting CT abd/pelvis showed no evidence of bowel obstruction. No evidence of free air Stool cx Positive for Salmonella species Covid 19 test negative received IVF Since his diarrhea is not getting better, we decided to treat the Salmonella Cipro 500mg BID was started Continue monitor electrolytes Clinically improves significantly Will complete the course of the antibiotic (3) Acute renal failure: (4) Acute dehydration: Due to recurrent diarrhea Creatinine on admission 5.5 with baseline creatinine 1.1 CT abdomen /pelvis showed equivocal punctate renal calculi. No hydronephrosis. No ureteral or bladder calculi identified Received IVF Nephrology on board Creatinine normalized at 0.9 Continue to avoid nephrotoxic agents Continue to hold Lisinopril on discharge as per nephrology Resolved (5) Electrolyte abnormality: Due to recurrent diarrhea Potassium increased to 5.5 this morning IVF with lactate + potassium was discontinued Repeat BMP later was 4.7 Nephrology on board case discussed with deputy chief magistrate that recommended to discharge on potassium supplement 40meq daily Check BMP on Saturday Recommend weekly basic metabolic panel to be ordered by nephrology x4 weeks after hospital discharge and follow-up with Dr. Heart or nephrology PA at [facility] 4 to 6 weeks after hospital discharge (6) ST segment changes on electrocardiogram: Evidence of ST depression on V4-6 on initial EKG in setting of hypovolemia, electrolyte abnormalities. Denies any chest pain No evidence of coronary event Troponin negative Stable (7) CAD (coronary artery disease): H/o acute anterolateral TX in 2011 2/2 total occlusion of the LAD diagonal artery status post POBA by Dr. Maier. Most recent TTE November 2018 with EF: 55-59%, base posterior wall hypokinesis, grade 1 diastolic dysfunction continue aspirin and metoprolol Will resume statin on discharge (8) Lupus anticoagulant disorder: History of anticoagulation on coumadin . Coumadin was on hold since 02/15 with Lovenox bridge in preparation of epidural injection Was starting on heparin drip with coumadin since procedure was cancelled INR above 5 today, so heparin drip discontinued Continue to hold coumadin (9) Supratherapeutic INR: Possible related to recurrent diarrhea INR increased to 8.3, then trending down to 5.5 today Case discussed with Mireille Hugo at the [facility] [facility] that agreed to continue to hold coumadin for today and tomorrow Coumadin 2.5 to be resumed on Saturday, then check INR on Saturday Follow up with the [facility] on Saturday at 8:40 AM (10) HTN (hypertension): BP stable Continue amlodipine. lisinopril has been on hold due to AMY Will continue to hold lisinopril on discharge Follow BP (11) Parathyroid abnormality: Continue calcitriol Elevate Lipase Denies any abdominal discomfort, Nausea and Vomiting No sign of acute pancreatitis Follow up outpatient DVT Ppx: IV heparin drip d/c INR above 8 today ( Will hold today dose heparin Code status: FULL PCP: Eveline Dispo: Discharge home today Follow up with the [facility] Follow up with nephrology in 4 to 6 weeks Total Time Total Time Spent Total Time Spent (In Minutes): 40 minutes Total Time Includes: Examination of the Patient, Discharge Planning, Medication Reconciliation, Communication With Other Providers and Other Discharge Plan Discharge Items Patient Disposition: Home - Self-Care Reason For Visit: DEHYDRATION, ARF Discharge Diagnosis: Diarrhea Salmonella gastroenteritis Acute renal failure Acute dehydration Electrolyte abnormality CAD (coronary artery disease) Lupus anticoagulant disorder Supratherapeutic INR HTN (hypertension) Activity: Resume your previous activity Non-emergency contact: Primary Care Provider and Machine Tool Dresser Call non-emergency contact if: you have any medication questions Follow-up/Referrals: Karen Heart MD, PhD [Physician] - 05/09/20 1:10 pm (05/09/2020 1:10 PM Provider Karen Heart MD Department Nephrology, [facility] ) Mario Mosquera MD [Primary Care Provider] - 03/01/20 10:00 am (03/01/2020 10:00 AM Provider Nicholas Villafuerte PA-C Department General Internal Medicine [facility] ) Diet: Heart Healthy Addtl Attending Provider Instructions: Follow up with your primary care provider Dr. Mosquera on 03/01/20 @ 10:00 AM Follow up with deputy chief magistrate Dr. Heart on 05/09/20 @ 1:10 PM Follow up with the coumadin clinic on Saturday (02/29/20) at 8:40 AM at the [facility] to check your PT/INR Check BMP on Saturday to monitor your electrolytes and renal function Please hold coumadin for today and tomorrow. Please resume the coumadin at 2.5 mg on Saturday Monitor your blood pressure Continue to hold Lisinopril on discharge Complete the course of the antibiotic with cipro Fall precaution Addtl Credit Review Officer Provider Instructions: -Discharge on 40 mEq twice daily potassium Hold lisinopril at hospital discharge Needs PCP appointment within 7 days of discharge -Recommend weekly basic metabolic panel to be ordered by nephrology x4 weeks after hospital discharge and follow-up with Dr. Heart or nephrology PA at [facility] 4 to 6 weeks after hospital discharge Pending Studies at Discharge: No Stand-Alone Forms: My [employer], Smoking Cessation Medications and DC Order Prescriptions: New ciprofloxacin HCl 500 mg Tablet 500 mg PO BID 5 Days Qty: 10 RF: 0 potassium chloride 20 mEq tablet extended release 40 meq PO DAILY Qty: 60 RF: 0 Continued amlodipine 10 mg tablet 10 mg PO QAM RF: 0 aspirin 81 mg tablet,delayed release (DR/EC) 81 mg PO QAM RF: 0 isosorbide mononitrate 120 mg tablet extended release 24 hr 120 mg PO QAM RF: 0 metoprolol succinate 100 mg tablet extended release 24 hr 100 mg PO QAM RF: 0 esomeprazole magnesium 40 mg capsule,delayed release(DR/EC) 40 mg PO QAM RF: 0 nitroglycerin [Nitrostat] 0.4 mg tablet, sublingual 0.4 mg Sublingual .COMPLEX RF: 0 vitamin B complex tablet 1 tab PO QAM RF: 0 cholecalciferol (vitamin D3) [Vitamin D3] 2,000 unit capsule 4,000 unit PO QAM RF: 0 warfarin 5 mg tablet See Rx Instructions .ROUTE .COMPLEX RF: 0 calcitriol 0.5 mcg capsule 0.5 mcg PO QAM RF: 0 rosuvastatin 20 mg Tablet 20 mg PO DAILY RF: 0 cyanocobalamin (vitamin B-12) 5,000 mcg Tablet, Sublingual 5,000 mcg SUBLINGUAL DAILY RF: 0 Discontinued lisinopril 20 mg tablet 20 mg PO QAM RF: 0 enoxaparin 60 mg/0.6 mL syringe See Rx Instructions .ROUTE .COMPLEX RF: 0 Discharge Orders: Discharge Order (Routine); Ordered 02/26/20 Ordered By: Kale Henderson Admission Data Admit Date/Time: 02/22/20 10:33 Attending Provider: Kale Henderson Admit Provider: Aletha Alex Primary Care Provider: Mario Mosquera Other Providers: Roxi Chaves ; Karen Heart ; Greyson Farnsworth ; Dory Aparicio ; Iram Hansen ; Russ Alba Other Interventions: Discharge Summary Assessment (RN) Last Done: 02/26/20 18:08 DC Date/Time DO NOT enter until pt leaves facility: 02/26/20 18:19
== END 2020-02-26 18:19 | disposition home or self-care (01) | DRG 372 ==
LOC: ED 05:45 → 2S 10:33 → SUATTDRO 10:33 → 2S 12:13 → 2N 02-23 19:09

== ENCOUNTER 2021-05-21 19:12 | Observation (INO) ==
[2021-05-21] MEDS ORDERED: MoRPHine SULFATE 4 MG/ML 1 ML CARP\\VIAL IV STA (19:38)
[2021-05-21] MEDS ORDERED: SODIUM CHLORIDE 0.9% 1000ML 500 ML IV ONE (19:38)
[2021-05-21] MEDS ORDERED: ASPIRIN 81 MG CHEW PO STA (19:38)
[2021-05-21] MEDS ORDERED: ONDANSETRON INJ 2 MG/ML 2 ML VIAL IV STA (19:38)
--- NOTE | 2021-05-21 19:45 | Emergency Department Note ---
Impression & Plan Chest pain, Abnormal EKG ED Provider Note NAME: JOE BLACK AGE: 75 SEX: M : 1945 ARRIVES VIA: Walk-In INFORMANT: Patient, ED PROVIDER(S): Ryan Fernandez DO CHIEF COMPLAINT: Chest pain HPI: The patient is a 75-year-old male who presented to the emergency department with his significant other for an evaluation of chest pain. The patient describes anterior chest pain which began prior to arrival. The patient states that he has had similar symptoms in the past. He has a history of acute coronary syndrome as well as heart attacks. He does take Coumadin. He states he has been compliant with all of his outpatient medications. He states the pain is constant. He states the pain is associated with nausea and dry heaving. He denies having any abdominal pain. He denies having any back pain. He has had no lower extremity swelling or pain. He said no recent trauma. He denies having any fever. He is immunized against COVID-19. ROS: See above HPI for pertinent positives & negatives. A total of 10 systems reviewed and were otherwise negative. PAST MEDICAL HISTORY: See Below PAST SURGICAL HISTORY: See Below FAMILY HISTORY: See Below SOCIAL HISTORY: See Below HOME MEDICATIONS: See Below ALLERGIES: See Below VITALS: See Below PHYSICAL EXAMINATION: GENERAL: The patient is awake and alert. The patient is somewhat anxious appearing. EYES: The conjunctivae are clear. The pupils are round and reactive. EARS, NOSE, MOUTH AND THROAT: The nose is without any evidence of any deformity. NECK: The neck is nontender and supple. RESPIRATORY: Normal respiratory effort is noted there is no evidence of wheezing rhonchi or rales CARDIOVASCULAR: Regular rate and rhythm noted there no murmurs rubs or gallops normal S1 normal S2. GASTROINTESTINAL: The abdomen is mildly distended. There is no tenderness guarding rigidity. MUSCULOSKELETAL/EXTREMITIES: There is no evidence of gross deformity full range of motion is noted in the hips and shoulders. SKIN: There is no obvious evidence of any rash. There are no petechiae, pallor or cyanosis noted. NEUROLOGIC: Patient is awake alert and oriented x3. MEDICAL DECISION MAKING: The patient is a 75-year-old male who presented to the emergency department for an evaluation of chest pain. The patient had anterior chest pain. The patient's had a history of acute coronary syndrome in the past. The patient took nitroglycerin prior to arrival with some improvement of his symptoms. He was treated with aspirin and pain medication in the emergency department. He was reevaluated multiple times. I discussed the patient's laboratory and radiographic studies with him. I also discussed the limitations of the emergency department work-up for chest pain. Ultimately given the patient's com orbidities and risk factors I discussed his case with the on-call [facility] hospitalist. They have agreed to evaluate the patient in the emergency department for further management and disposition. Triage Nursing notes reviewed. Prior medical records reviewed Vital Signs: reviewed and remarkable for no significant abnormalities Differential diagnosis: Cardiac ischemia, aortic dissection, pulmonary embolism, pneumothorax, pneumonia, pericarditis, myocarditis, esophageal rupture, GERD, cholecystitis, pancreatitis, musculoskeletal, as well as other pathologies. ER treatment provided: See below Diagnostics interpreted by me: ECG: EKG was obtained in the emergency department. My interpretation is sinus rhythm at 77 bpm. First-degree AV block was noted. There is no ectopy. Inferior and lateral ST depressions were noted. This was compared to a tracing from May 062019. No significant changes were noted. Cardiac Monitoring: An order was placed for continuous cardiac monitoring. The monitor shows a rate of 56 bpm with sinus bradycardia rhythm. Laboratory studies: As stated above and show below. Imaging studies: See below Consultation(s): I discussed this case with Dr. Trejo. He is agreed to evaluate the patient in the emergency department for further management and disposition. Past Med/Surg History Medical History Alcohol use Aortic arch atherosclerosis CAD (coronary artery disease) "2009 - NSTEMI 2012 - anterolateral STEMI, s/p POBA to LAD diagonal artery occlusion" Carpal tunnel syndrome of right wrist Diastolic CHF Diverticulosis of colon HTN (hypertension) Hypospadias Low bone mass Lupus anticoagulant disorder Parathyroid abnormality Vitamin deficiency Surgical History Carpal tunnel syndrome History of total right hip replacement Family History Other Diabetes Heart disease Social History Smoking Status: Former smoker Tobacco Type: Cigarettes packs per day: 0.5; Years Smoked: 55; Number of Years Since Quit: 15; Hx Alcohol Use: Yes Alcohol type: beer Alcohol Intake Frequency: 4 or More x per/Week Hx Substance Use: No Preferred Language: Palestinian Communication Ability: Effective Visual Impairment: No Limitations Hearing Ability: Normal Beliefs That Will Affect Care: None marital status: Current Living Situation: Spouse current occupational status: retired Feels Safe at Home: Yes Assistive Devices: Glasses Allergies Allergies Allergy/AdvReac Type Severity Reaction Status Date / Time Beta-Blockers Allergy Unknown Verified 05/21/21 19:32 (Beta-Adrenergic Bloc Home Meds Home Medications Medication Instructions Recorded Confirmed amlodipine 10 mg tablet 10 mg PO QAM tab 05/04/19 05/21/21 aspirin 81 mg tablet,delayed 81 mg PO QAM tab 05/04/19 05/21/21 release cholecalciferol (vitamin D3) 50 4,000 unit PO QAM cap 05/04/19 05/21/21 mcg (2,000 unit) capsule (Vitamin D3) esomeprazole magnesium 40 mg 40 mg PO QAM cap 05/04/19 05/21/21 capsule,delayed release isosorbide mononitrate 120 mg 120 mg PO QAM tab 05/04/19 05/21/21 tablet,extended release 24 hr nitroglycerin 0.4 mg sublingual 0.4 mg SUBLINGUAL .COMPLEX 05/04/19 05/21/21 tablet (Nitrostat) vitamin B complex 1 tab PO QAM tab 05/04/19 05/21/21 calcitriol 0.5 mcg capsule 0.5 mcg PO QAM 11/28/19 05/21/21 cyanocobalamin (vitamin B-12) 5,000 mcg SUBLINGUAL DAILY 02/22/20 05/21/21 5,000 mcg sublingual tablet lisinopril 20 mg tablet 20 mg PO QAM 05/06/20 05/21/21 ezetimibe 10 mg tablet 10 mg PO DAILY 02/10/21 05/21/21 rosuvastatin 40 mg tablet 40 mg PO DAILY 02/10/21 05/21/21 metoprolol succinate 50 mg 75 mg PO DAILY 05/21/21 05/21/21 tablet,extended release 24 hr warfarin 1 mg tablet 1 mg PO DAILY 05/21/21 05/21/21 Results & Data (ED) Vital Signs Vital Signs - 24 hr 05/21/21 19:22 05/21/21 20:01 05/21/21 20:30 Temperature 36.8 C Temperature Source Temporal Artery Scan Pulse Rate 92 H 92 H 74 Pulse Rate from SpO2 Sensor 98 H 75 Respiratory Rate 18 16 20 Respiratory Effort / Characteristics Non-Labored Spontaneous Respiratory Depth Normal Respiratory Pattern Regular Blood Pressure 183/75 H 160/94 H 137/75 Blood Pressure Mean 111 116 95 Pulse Oximetry 99 97 97 Oxygen Delivery Method Room Air Sepsis Recent Fever Within 48 Hours No Sepsis New/Unexplained Change in Mental Status No Sepsis Action Taken by Nursing No Action Required 05/21/21 21:30 05/21/21 22:00 05/21/21 22:30 Temperature Temperature Source Pulse Rate 61 57 L 58 L Pulse Rate from SpO2 Sensor 61 58 L 57 L Respiratory Rate 17 14 14 Respiratory Effort / Characteristics Respiratory Depth Respiratory Pattern Blood Pressure 119/63 121/62 117/64 Blood Pressure Mean 81 81 81 Pulse Oximetry 96 94 94 Oxygen Delivery Method Sepsis Recent Fever Within 48 Hours Sepsis New/Unexplained Change in Mental Status Sepsis Action Taken by Nursing 05/21/21 23:00 05/21/21 23:30 Temperature Temperature Source Pulse Rate 58 L 56 L Pulse Rate from SpO2 Sensor 58 L Respiratory Rate 15 15 Respiratory Effort / Characteristics Respiratory Depth Respiratory Pattern Blood Pressure 118/66 126/70 Blood Pressure Mean 83 88 Pulse Oximetry 95 Oxygen Delivery Method Sepsis Recent Fever Within 48 Hours Sepsis New/Unexplained Change in Mental Status Sepsis Action Taken by [facility] Medications Current Medication List: was personally reviewed by me Laboratory Data Attestation: I reviewed the patient's lab results. Result diagrams: 05/21/21 19:30 05/21/21 20:17 Lab Results 05/21/21 05/21/21 05/21/21 Range/Units 16:05 16:05 19:30 WBC 3.92 L (4.8-10.8) K/uL RBC 4.82 (4.7-6.1) M/uL Hgb 15.5 (14.0-18.0) g/dL Hct 45.5 (42-52) % MCV 94.4 (80-100) fL MCH 32.2 (25-34) pg MCHC 34.1 (32-36) g/dL RDW Std Deviation 46.2 (36.4-46.3) fL RDW Coeff of Sena 13.3 (11.5-14.5) % Plt Count 167 (130-400) K/uL MPV 10.8 H (7.4-10.4) fL Immature Gran % (Auto) 0.0 % Neut % (Auto) 61.2 % Lymph % (Auto) 25.8 % Jerauld % (Auto) 8.9 % Eos % (Auto) 3.8 % Baso % (Auto) 0.3 % Neut # (Auto) 2.40 (1.4-6.5) K/uL Lymph # (Auto) 1.01 L (1.2-3.4) K/uL J[place]uld # (Auto) 0.35 (0.11-0.59) K/uL Eos # (Auto) 0.15 (0-0.5) K/uL Baso # (Auto) 0.01 (0-0.2) K/uL Immature Gran # (Auto) 0.00 (0.00-0.02) K/uL PT INR APTT PTT Ratio Sodium (136-145) mmol/L Potassium (3.5-5.1) mmol/L Chloride (98-107) mmol/L Carbon Dioxide (21-32) mmol/L Anion Gap (3-11) BUN (7-18) mg/dl Creatinine (0.6-1.4) mg/dl Est Cr Clr Drug Dosing ml/min Est GFR ( Amer) ml/min Est GFR (Non-Af Amer) ml/min BUN/Creatinine Ratio (10-20) Glucose (70-99) mg/dl Calcium (8.5-10.1) mg/dl Magnesium (1.8-2.4) mg/dl Total Bilirubin (0.2-1) mg/dl AST (15-37) U/L ALT (12-78) U/L Alkaline Phosphatase (45-117) U/L Troponin I (0-0.045) ng/ml Total Protein (6.4-8.2) gm/dl Albumin (3.4-5.0) gm/dl Globulin (2.5-4.0) gm/dl Albumin/Globulin Ratio (0.9-2) Lipase (73-393) U/L TSH (0.300-4.500) uIu/ml COVID-19 Eval Order Covid19 at [facility] SARS-CoV-2 (PCR) NEGATIVE (Negative) 05/21/21 05/21/21 05/21/21 Range/Units 19:30 19:30 20:17 WBC (4.8-10.8) K/uL RBC (4.7-6.1) M/uL Hgb (14.0-18.0) g/dL Hct (42-52) % MCV (80-100) fL MCH (25-34) pg MCHC (32-36) g/dL RDW Std Deviation (36.4-46.3) fL RDW Coeff of Sena (11.5-14.5) % Plt Count (130-400) K/uL MPV (7.4-10.4) fL Immature Gran % (Auto) % Neut % (Auto) % Lymph % (Auto) % Jerauld % (Auto) % Eos % (Auto) % Baso % (Auto) % Neut # (Auto) (1.4-6.5) K/uL Lymph # (Auto) (1.2-3.4) K/uL J[place]uld # (Auto) (0.11-0.59) K/uL Eos # (Auto) (0-0.5) K/uL Baso # (Auto) (0-0.2) K/uL Immature Gran # (Auto) (0.00-0.02) K/uL PT Cancelled 17.4 H INR Cancelled 1.8 H APTT Cancelled 36.5 H PTT Ratio Cancelled 1.4 Sodium 142 (136-145) mmol/L Potassium (3.5-5.1) mmol/L Chloride 110 H (98-107) mmol/L Carbon Dioxide 25 (21-32) mmol/L Anion Gap 7.0 (3-11) BUN 11 (7-18) mg/dl Creatinine 1.07 (0.6-1.4) mg/dl Est Cr Clr Drug Dosing 51.1 ml/min Est GFR ( Amer) 77.7 ml/min Est GFR (Non-Af Amer) 67.1 ml/min BUN/Creatinine Ratio 10.0 (10-20) Glucose 126 H (70-99) mg/dl Calcium 9.2 (8.5-10.1) mg/dl Magnesium (1.8-2.4) mg/dl Total Bilirubin 0.5 (0.2-1) mg/dl AST (15-37) U/L ALT 26 (12-78) U/L Alkaline Phosphatase 69 (45-117) U/L Troponin I < 0.015 (0-0.045) ng/ml Total Protein 8.1 (6.4-8.2) gm/dl Albumin 4.0 (3.4-5.0) gm/dl Globulin 4.1 H (2.5-4.0) gm/dl Albumin/Globulin Ratio 1.0 (0.9-2) Lipase 205 (73-393) U/L TSH 3.600 (0.300-4.500) uIu/ml COVID-19 Eval Order SARS-CoV-2 (PCR) (Negative) 05/21/21 Range/Units 20:17 WBC (4.8-10.8) K/uL RBC (4.7-6.1) M/uL Hgb (14.0-18.0) g/dL Hct (42-52) % MCV (80-100) fL MCH (25-34) pg MCHC (32-36) g/dL RDW Std Deviation (36.4-46.3) fL RDW Coeff of Sena (11.5-14.5) % Plt Count (130-400) K/uL MPV (7.4-10.4) fL Immature Gran % (Auto) % Neut % (Auto) % Lymph % (Auto) % J[place]uld % (Auto) % Eos % (Auto) % Baso % (Auto) % Neut # (Auto) (1.4-6.5) K/uL Lymph # (Auto) (1.2-3.4) K/uL J[place] # (Auto) (0.11-0.59) K/uL Eos # (Auto) (0-0.5) K/uL Baso # (Auto) (0-0.2) K/uL Immature Gran # (Auto) (0.00-0.02) K/uL PT INR APTT PTT Ratio Sodium (136-145) mmol/L Potassium 3.2 L (3.5-5.1) mmol/L Chloride (98-107) mmol/L Carbon Dioxide (21-32) mmol/L Anion Gap (3-11) BUN (7-18) mg/dl Creatinine (0.6-1.4) mg/dl Est Cr Clr Drug Dosing ml/min Est GFR ( Amer) ml/min Est GFR (Non-Af Amer) ml/min BUN/Creatinine Ratio (10-20) Glucose (70-99) mg/dl Calcium (8.5-10.1) mg/dl Magnesium 1.9 (1.8-2.4) mg/dl Total Bilirubin (0.2-1) mg/dl AST 22 (15-37) U/L ALT (12-78) U/L Alkaline Phosphatase (45-117) U/L Troponin I < 0.015 (0-0.045) ng/ml Total Protein (6.4-8.2) gm/dl Albumin (3.4-5.0) gm/dl Globulin (2.5-4.0) gm/dl Albumin/Globulin Ratio (0.9-2) Lipase (73-393) U/L TSH (0.300-4.500) uIu/ml COVID-19 Eval Order SARS-CoV-2 (PCR) (Negative) Administered Medications Heparin Sodium/Dextrose (Heparin Sodium/Dextrose) 25,000 units in 500 mls @ 23 mls/hr IV .[id number] [facility]; Protocol Stop: 06/20/21 23:14 Last Admin: 05/21/21 23:33 Dose: 1,150 units/hr, 23 mls/hr Documented by: [id number] Cosigned by: [id number] Discontinued Medications Aspirin (Aspirin 81 Mg Chew) 324 mg PO NOW STA Stop: 05/21/21 19:39 Last Admin: 05/21/21 19:45 Dose: 324 mg Documented by: [id number] Heparin Sodium/Dextrose (Heparin Iv Adult Wt-Based Standard *No* Bolus Protocol) 1 ea IV Q15M [facility]; Protocol Stop: 05/22/21 02:00 Last Admin: 05/21/21 23:34 Dose: 1 ea Documented by: [id number] Heparin Sodium/Dextrose (Heparin 84548 Unit/500 Ml D5w) Confirm Administered Dose 25,000 units IV .STK-MED ONE Stop: 05/21/21 23:32 Last Admin: 05/21/21 23:34 Dose: Not Given Documented by: [id number] Sodium Chloride (Nss 1000ml) 500 mls @ 999 mls/hr IV .Q31M ONE Stop: 05/21/21 20:08 Last Infusion: 05/21/21 20:18 Dose: 0 mls/hr Documented by: [id number] Admin: 05/21/21 19:45 Dose: 999 mls/hr Documented by: [id number] Morphine Sulfate (Morphine Sulfate 4 Mg/Ml 1 Ml Carp\\Vial) 4 mg IV NOW STA Stop: 05/21/21 19:39 Last Admin: 05/21/21 19:44 Dose: 4 mg Documented by: [id number] Ondansetron HCl (Ondansetron Inj 2 Mg/Ml 2 Ml Vial) 4 mg IV NOW STA Stop: 05/21/21 19:39 Last Admin: 05/21/21 19:44 Dose: 4 mg Documented by: [id number] Potassium Chloride (Potassium Chloride Crtab 20 Meq Tabcr) 40 meq PO NOW STA Stop: 05/21/21 20:49 Last Admin: 05/21/21 21:08 Dose: 40 meq Documented by: [id number] Imaging Data Radiologist's Impression: Chest X-Ray 05/21/21 19:26 XR chest 1V portable HISTORY: Atypical Chest Pain COMPARISON: Chest 05/06/2020. FINDINGS: No pneumothorax. No pleural effusions. The heart is normal in size. Left basilar linear densities favor subsegmental atelectasis. Otherwise, lungs are clear. No focal lung consolidations to suggest pneumonia. No evidence for pulmonary edema. Mildly tortuous thoracic aorta, unchanged. IMPRESSION: A few left basilar linear densities suggesting subsegmental atelectasis. Otherwise, no acute process within the chest. ACT 112: Negative or not required by law. Electronically signed by: Kenrick Ponce M.D. 05/21/2021 8:00 PM Discharge Plan Visit Data Chief Complaint: Chest Pain Stated Complaint: CHEST PAIN- 3 NITRO ED Provider: Ryan Fernandez Prescriptions Prescriptions: No Action ezetimibe 10 mg tablet 10 mg PO DAILY RF: 0 rosuvastatin 40 mg tablet 40 mg PO DAILY RF: 0 amlodipine 10 mg tablet 10 mg PO QAM RF: 0 aspirin 81 mg tablet,delayed release (DR/EC) 81 mg PO QAM RF: 0 isosorbide mononitrate 120 mg tablet extended release 24 hr 120 mg PO QAM RF: 0 esomeprazole magnesium 40 mg capsule,delayed release(DR/EC) 40 mg PO QAM RF: 0 nitroglycerin [Nitrostat] 0.4 mg tablet, sublingual 0.4 mg Sublingual .COMPLEX RF: 0 vitamin B complex tablet 1 tab PO QAM RF: 0 cholecalciferol (vitamin D3) [Vitamin D3] 2,000 unit capsule 4,000 unit PO QAM RF: 0 calcitriol 0.5 mcg capsule 0.5 mcg PO QAM RF: 0 cyanocobalamin (vitamin B-12) 5,000 mcg Tablet, Sublingual 5,000 mcg SUBLINGUAL DAILY RF: 0 lisinopril 20 mg tablet 20 mg PO QAM RF: 0 metoprolol succinate 50 mg tablet extended release 24 hr 75 mg PO DAILY RF: 0 warfarin 1 mg tablet 1 mg PO DAILY RF: 0
[2021-05-21 19:53] LABS: Basophils # (auto) 0.01 K/uL (0-0.2); Basophils % (auto) 0.3 %; Eosinophils # (auto) 0.15 K/uL (0-0.5); Eosinophils % (auto) 3.8 %; Hematocrit (blood only) 45.5 % (42-52); Hemoglobin 15.5 g/dL (14.0-18.0); Lymphocytes # (auto) 1.01 K/uL (1.2-3.4); Lymphocytes % (auto) 25.8 %; Mean Corpuscular Hemoglobin 32.2 pg (25-34); Mean Corpuscular Hgb Conc 34.1 g/dL (32-36); Mean Corpuscular Volume 94.4 fL (80-100); Mean Platelet Volume 10.8 fL (7.4-10.4); Monocytes # (auto) 0.35 K/uL (0.11-0.59); Monocytes % (auto) 8.9 %; Neutrophils % (auto) 61.2 %; Platelet Count 167 K/uL (130-400); RDW Coefficient of Variation 13.3 % (11.5-14.5); RDW Standard Deviation 46.2 fL (36.4-46.3); Red Blood Count 4.82 M/uL (4.7-6.1); White Blood Count 3.92 K/uL (4.8-10.8)
--- NOTE | 2021-05-21 20:02 | XRay Report ---
XR chest 1V portable HISTORY: Atypical Chest Pain COMPARISON: Chest 05/06/2020. FINDINGS: No pneumothorax. No pleural effusions. The heart is normal in size. Left basilar linear den sities favor subsegmental atelectasis. Otherwise, lungs are clear. No focal lung consolidations to andrew ggest pneumonia. No evidence for pulmonary edema. Mildly tortuous thoracic aorta, unchanged. IMPRESSION: A few left basilar linear densities suggesting subsegmental atelectasis. Otherwise, no acute process within the chest. ACT 112: Negative or not required by law. Electronically signed by: Kenrick Ponce M.D. 05/21/2021 8:00 PM
[2021-05-21 20:09] LABS: Troponin I < 0.015 ng/ml (0-0.045)
[2021-05-21 20:10] LABS: Alanine Aminotransferase 26 U/L (12-78); Alkaline Phosphatase 69 U/L (45-117); Bilirubin,Total 0.5 mg/dl (0.2-1); Blood Urea Nitrogen 11 mg/dl (7-18); Calcium 9.2 mg/dl (8.5-10.1); Carbon Dioxide 25 mmol/L (21-32); Chloride 110 mmol/L (98-107); Creatinine Clr Calc Pharmacy 51.1 ml/min; Est GFR (African American) 77.7 ml/min; Est GFR (Non-African American) 67.1 ml/min; Globulin 4.1 gm/dl (2.5-4.0); Glucose 126 mg/dl (70-99); Lipase 205 U/L (73-393); Sodium 142 mmol/L (136-145); Total Protein 8.1 gm/dl (6.4-8.2)
[2021-05-21 20:44] LABS: Potassium 3.2 mmol/L (3.5-5.1)
[2021-05-21 20:47] LABS: INR 1.8 (0.9-1.1); Partial Thromboplastin Ratio 1.4; Partial Thromboplastin Time 36.5 Seconds (21.0-31.0); Prothrombin Time 17.4 Seconds (9.0-12.0)
[2021-05-21] MEDS ORDERED: POTASSIUM CHLORIDE CRTAB 20 MEQ TABCR PO STA (20:48)
[2021-05-21 20:49] LABS: Aspartate Aminotransferase 22 U/L (15-37)
[2021-05-21 20:58] LABS: Magnesium 1.9 mg/dl (1.8-2.4)
[2021-05-21 21:09] LABS: Troponin I < 0.015 ng/ml (0-0.045)
[2021-05-21] MEDS ORDERED: Heparin IV Adult Wt-Based Standard *NO* Bolus Protocol IV SCH (22:47)
--- NOTE | 2021-05-21 22:48 | History & Physical Report ---
Date of Service May 21, 2021 Assessment & Plan (1) Chest pain: Plan: Possibly from uncontrolled BP Rule out ACS given nitro relief hx CAD status post angioplasty/CVA/PVD chronic diastolic heart failure (EF 50 to 55% TTE 2019), patient euvolemic to dry PAF/hypercoagulable state (hx lupus anticoagulant disorder/left renal and splenic infarctions) on Coumadin, INR slightly subtherapeutic hyperlipidemia on statin Rx prediabetes, hemoglobin A1c of 14 April 2021 Alcohol abuse as per records past tobacco abuse OBS PCU Titrate home BP meds Trend troponin Cardiology consult Re: Chest pain, history CAD N.p.o. until patient seen by Cardiology in a.m. Hold Coumadin in anticipation of any procedure. IV heparin interim while Coumadin on hold if INR less than 2 Replace potassium AWSS, DT precautions DVT prophylaxis with IV heparin Full code Patient requesting updates from providers. Ms. Yun Reardon, contact #[phone]. Text document was generated using [employer] voice recognition software. It may contain grammatical or spelling errors. Kindly contact undersigned for clarification of any documentation item in question. History of Present Illness Chief Complaint: Chest pain Primary Care Provider: Mario Mosquera MD History obtained from patient and records. Medical history significant for chronic diastolic heart failure (EF 50 to 55% TTE 2019), CAD status post angioplasty/CVA/PVD, PAF/hypercoagulable state (hx lupus anticoagulant disorder/left renal and splenic infarctions) on Coumadin, hypertension, hyperlipidemia, prediabetes, alcohol abuse as per records, past tobacco abuse. Last confinement February 2020 for Salmonella gastroenteritis. Patient had achy sharp substernal pain with shortness of breath today somewhat similar to episodes in the past. Nausea, dry heaving without abdominal pain. Patient compliant with home medications. Does not check blood pressure at home. No unusual stress at home. Chest discomfort subsequently relieved by nitroglycerin intake at home. SBP 180s upon arrival at the ER. 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 Allergies Allergy/AdvReac Type Severity Reaction Status Date / Time Beta-Blockers Allergy Unknown Verified 05/21/21 19:32 (Beta-Adrenergic Bloc Home Medications Medication Instructions Recorded Confirmed Type amlodipine 10 mg tablet 10 mg PO QAM tab 05/04/19 05/21/21 History aspirin 81 mg tablet,delayed 81 mg PO QAM tab 05/04/19 05/21/21 History release cholecalciferol (vitamin D3) 50 4,000 unit PO QAM cap 05/04/19 05/21/21 History mcg (2,000 unit) capsule (Vitamin D3) esomeprazole magnesium 40 mg 40 mg PO QAM cap 05/04/19 05/21/21 History capsule,delayed release isosorbide mononitrate 120 mg 120 mg PO QAM tab 05/04/19 05/21/21 History tablet,extended release 24 hr nitroglycerin 0.4 mg sublingual 0.4 mg SUBLINGUAL .COMPLEX 05/04/19 05/21/21 History tablet (Nitrostat) vitamin B complex 1 tab PO QAM tab 05/04/19 05/21/21 History calcitriol 0.5 mcg capsule 0.5 mcg PO QAM 11/28/19 05/21/21 History cyanocobalamin (vitamin B-12) 5,000 mcg SUBLINGUAL DAILY 02/22/20 05/21/21 History 5,000 mcg sublingual tablet lisinopril 20 mg tablet 20 mg PO QAM 05/06/20 05/21/21 History ezetimibe 10 mg tablet 10 mg PO DAILY 02/10/21 05/21/21 History rosuvastatin 40 mg tablet 40 mg PO DAILY 02/10/21 05/21/21 History metoprolol succinate 50 mg 75 mg PO DAILY 05/21/21 05/21/21 History tablet,extended release 24 hr warfarin 1 mg tablet 1 mg PO DAILY 05/21/21 05/21/21 History Past Med/Surg History Medical History (Updated 05/22/21 @ 09:58 by Noel Knapp) Alcohol use Aortic arch atherosclerosis CAD (coronary artery disease) "2009 - NSTEMI 2012 - anterolateral STEMI, s/p POBA to LAD diagonal artery occlusion" Carpal tunnel syndrome of right wrist Diastolic CHF Diverticulosis of colon HTN (hypertension) Hypospadias Low bone mass Lupus anticoagulant disorder Parathyroid abnormality Vitamin deficiency Surgical History Carpal tunnel syndrome History of total right hip replacement Family History Other Diabetes Heart disease Social History Smoking Status: Former smoker Tobacco Type: Cigarettes packs per day: 0.5; Years Smoked: 55; Smoking End Date: 15 years ago; Number of Years Since Quit: 15; Do You Dip or Chew Tobacco: No; Hx Alcohol Use: Yes Alcohol type: beer Alcohol Intake Frequency: 4 or More x per/Week Hx Substance Use: No Preferred Language: Estonian Communication Ability: Effective Visual Impairment: No Limitations Hearing Ability: Normal Formal Service Waiter Required: No Beliefs That Will Affect Care: None marital status: Current Living Situation: Spouse current occupational status: retired Other Information That Helps Us Care for You: No Feels Safe at Home: Yes Safety Concerns: Feels Safe At This Time Assistive Devices: None Assistive Devices Comment: not with patient Review of Systems Review of Systems: As per HPI, all 10 systems reviewed, all other ROS negative Physical Exam Physical Exam: GENERAL: Comfortable, pleasant, no respiratory distress SKIN: Normal color, warm HEENT: [place] palpebral conjunctivae, no ptosis, moist buccal mucosa NECK : Supple, no tenderness CHEST : CTA, no tenderness HEART : RRR, no obvious murmurs ABDOMEN: Some distention, nontender EXTREMITIES : No LE swelling/tenderness, no other conspicuous deformities noted NEUROLOGIC : Coherent, no facial asymmetry, no other gross focality Results & Data Results & Data ([facility]) Vital Signs (Past 12 Hours) Vital Signs Temp Pulse Resp BP Pulse Ox 05/21/21 22:30 58 L 14 117/64 94 05/21/21 22:00 57 L 14 121/62 94 05/21/21 21:30 61 17 119/63 96 05/21/21 20:30 74 20 137/75 97 05/21/21 20:01 92 H 16 160/94 H 97 05/21/21 19:22 36.8 C 92 H 18 183/75 H 99 Laboratory Results Laboratory Results WBC 3.92 K/uL (4.8-10.8) L 05/21/21 19:30 RBC 4.82 M/uL (4.7-6.1) 05/21/21 19:30 Hgb 15.5 g/dL (14.0-18.0) 05/21/21 19: Hct 45.5 % (42-52) 05/21/21: MCV 94.4 fL (80-100) 05/21/21 19: MCH 32.2 pg (25-34) 05/21/21: MCHC 34.1 g/dL (32-36) 05/21/21: RDW Std Deviation 46.2 fL (36.4-46.3) 05/21/21: RDW Coeff of [place] 13.3 % (11.5-14.5) 05/21/21: Plt Count 167 K/uL (130-400) 05/21/21: MPV 10.8 fL (7.4-10.4) H 05/21/21: Immature Gran % (Auto) 0.0 % 05/21/21: Neut % (Auto) 61.2 % 05/21/21: Lymph % (Auto) 25.8 % 05/21/21: [place] % (Auto) 8.9 % 05/21/21: Eos % (Auto) 3.8 % 05/21/21: Baso % (Auto) 0.3 % 05/21/21: Neut # (Auto) 2.40 K/uL (1.4-6.5) 05/21/21: Lymph # (Auto) 1.01 K/uL (1.2-3.4) L 05/21/21: [place] # (Auto) 0.35 K/uL (0.11-0.59) 05/21/21: Eos # (Auto) 0.15 K/uL (0-0.5) 05/21/21: Baso # (Auto) 0.01 K/uL (0-0.2) 05/21/21: Immature Gran # (Auto) 0.00 K/uL (0.00-0.02) 05/21/21 19: PT 17.4 Seconds (9.0-12.0) H 05/21/21 20:17 INR 1.8 (0.9-1.1) H 05/21/21 20:17 APTT 36.5 Seconds (21.0-31.0) H 05/21/21 20:17 PTT Ratio 1.4 05/21/21 20:17 Sodium 142 mmol/L (136-145) 05/21/21 19:30 Potassium 3.2 mmol/L (3.5-5.1) L 05/21/21 20:17 Chloride 110 mmol/L (98-107) H 05/21/21 19:30 Carbon Dioxide 25 mmol/L (21-32) 05/21/21 19:30 Anion Gap 7.0 (3-11) 05/21/21 19:30 BUN 11 mg/dl (7-18) 05/21/21 19:30 Creatinine 1.07 mg/dl (0.6-1.4) 05/21/21 19:30 Est Cr Clr Drug Dosing 51.1 ml/min 05/21/21 19:30 Est GFR ( Amer) 77.7 ml/min 05/21/21 19:30 Est GFR (Non-Af Amer) 67.1 ml/min 05/21/21 19:30 BUN/Creatinine Ratio 10.0 (10-20) 05/21/21 19:30 Glucose 126 mg/dl (70-99) H 05/21/21 19:30 Calcium 9.2 mg/dl (8.5-10.1) 05/21/21 19:30 Magnesium 1.9 mg/dl (1.8-2.4) 05/21/21 20:17 Total Bilirubin 0.5 mg/dl (0.2-1) 05/21/21 19:30 AST 22 U/L (15-37) 05/21/21 20:17 ALT 26 U/L (12-78) 05/21/21 19:30 Alkaline Phosphatase 69 U/L (45-117) 05/21/21 19:30 Troponin I < 0.015 ng/ml (0-0.045) 05/21/21 20:17 Total Protein 8.1 gm/dl (6.4-8.2) 05/21/21 19:30 Albumin 4.0 gm/dl (3.4-5.0) 05/21/21 19:30 Globulin 4.1 gm/dl (2.5-4.0) H 05/21/21 19:30 Albumin/Globulin Ratio 1.0 (0.9-2) 05/21/21 19:30 Lipase 205 U/L (73-393) 05/21/21 19:30 COVID-19 Eval Order Covid19 at [facility] 05/21/21 16:05 SARS-CoV-2 (PCR) NEGATIVE (Negative) 05/21/21 16:05 Impressions Chest X-Ray 05/21/21 19:26 XR chest 1V portable HISTORY: Atypical Chest Pain COMPARISON: Chest 05/06/2020. FINDINGS: No pneumothorax. No pleural effusions. The heart is normal in size. Left basilar linear densities favor subsegmental atelectasis. Otherwise, lungs are clear. No focal lung consolidations to suggest pneumonia. No evidence for pulmonary edema. Mildly tortuous thoracic aorta, unchanged. IMPRESSION: A few left basilar linear densities suggesting subsegmental atelectasis. Otherwise, no acute process within the chest. ACT 112: Negative or not required by law. Electronically signed by: Kenrick Ponce M.D. 05/21/2021 8:00 PM Diagnostic Findings EKG as per my interpretation : Rate 75, NSR, 1 AVB, normal axis, septal infarct, no ischemia
[2021-05-21] MEDS ORDERED: HEPARIN SODIUM/DEXTROSE 25,000 UNITS/500 ML BAG IV SCH (23:15)
[2021-05-21] MEDS ORDERED: HEPARIN 25000 UNIT/500 ML D5W IV ONE (23:31)
[2021-05-22] MEDS ORDERED: NITROGLYCERIN SL 0.4 MG/TAB TAB SL PRN (00:39)
[2021-05-22] MEDS ORDERED: PROMETHAZINE HCL 12.5 MG in SODIUM CHLORIDE 0.9% 50 ML IV PRN (00:39)
[2021-05-22] MEDS ORDERED: ACETAMINOPHEN 325 MG TAB PO PRN (00:39)
[2021-05-22] MEDS ORDERED: MoRPHine SULFATE 2 MG/ML CARP IV PRN (00:39)
[2021-05-22] MEDS ORDERED: traMADol HCL 50 MG TABLET PO PRN (00:39)
[2021-05-22] MEDS ORDERED: POTASSIUM CHLORIDE 40 MEQ in SODIUM CHLORIDE 0.45 % 1,000 ML IV SCH (01:30)
[2021-05-22] MEDS ORDERED: ATIVAN IV ALCOHOL WITHDRAWL IV PRN (04:48)
[2021-05-22] MEDS ORDERED: LORazepam 1 MG/2 ML VIAL IV PRN (04:48)
[2021-05-22] MEDS ORDERED: LORazepam 2 MG/4 ML VIAL IV PRN (04:48)
[2021-05-22] MEDS ORDERED: LORazepam 3 MG/6 ML VIAL IV PRN (04:48)
[2021-05-22 05:02] LABS: Basophils # (auto) 0.01 K/uL (0-0.2); Basophils % (auto) 0.3 %; Eosinophils # (auto) 0.13 K/uL (0-0.5); Eosinophils % (auto) 3.8 %; Hematocrit (blood only) 42.2 % (42-52); Hemoglobin 14.4 g/dL (14.0-18.0); Lymphocytes # (auto) 0.77 K/uL (1.2-3.4); Lymphocytes % (auto) 22.5 %; Mean Corpuscular Hemoglobin 31.9 pg (25-34); Mean Corpuscular Hgb Conc 34.1 g/dL (32-36); Mean Corpuscular Volume 93.4 fL (80-100); Mean Platelet Volume 10.9 fL (7.4-10.4); Monocytes # (auto) 0.39 K/uL (0.11-0.59); Monocytes % (auto) 11.4 %; Neutrophils # (auto) 2.12 K/uL (1.4-6.5); Platelet Count 132 K/uL (130-400); RDW Coefficient of Variation 13.2 % (11.5-14.5); RDW Standard Deviation 45.2 fL (36.4-46.3); Red Blood Count 4.52 M/uL (4.7-6.1); White Blood Count 3.42 K/uL (4.8-10.8)
[2021-05-22 05:30] LABS: INR 1.9 (0.9-1.1); Partial Thromboplastin Ratio > 5.3; Prothrombin Time 18.2 Seconds (9.0-12.0)
[2021-05-22 05:33] LABS: BUN Creatinine Ratio 9.1 (10-20); Blood Urea Nitrogen 7 mg/dl (7-18); Calcium 8.6 mg/dl (8.5-10.1); Carbon Dioxide 25 mmol/L (21-32); Chloride 110 mmol/L (98-107); Chol HDL Ratio 2; Cholesterol 125 mg/dl (0-200); Creatinine Clr Calc Pharmacy 74.9 ml/min; Est GFR (African American) 104.4 ml/min; Est GFR (Non-African American) 90.1 ml/min; Glucose 111 mg/dl (70-99); HDL Cholesterol 56 mg/dl; LDL Cholesterol Calculated 51 mg/dl; Potassium 3.9 mmol/L (3.5-5.1); Sodium 142 mmol/L (136-145); Triglycerides 91 mg/dl (0-150); Troponin I < 0.015 ng/ml (0-0.045); VLDL Cholesterol 18 mg/dl
[2021-05-22 05:38] LABS: Partial Thromboplastin Time > 139.0 Seconds (21.0-31.0)
[2021-05-22 07:21] LABS: Partial Thromboplastin Ratio 2.7
[2021-05-22 07:38] LABS: Partial Thromboplastin Time 70.8 Seconds (21.0-31.0)
[2021-05-22] MEDS ORDERED: ROSUVASTATIN CALCIUM 20 MG TAB PO SCH (09:00)
[2021-05-22] MEDS ORDERED: METOPROLOL SUCC 25MG EXT REL TAB PO SCH (09:00)
[2021-05-22] MEDS ORDERED: ASPIRIN 81 MG ECTAB PO SCH (09:00)
[2021-05-22] MEDS ORDERED: lisinopril 20 MG TAB PO SCH (09:00)
[2021-05-22] MEDS ORDERED: CYANOCOBALAMIN (VITAMIN B-12) 2,500 MCG TAB.SUBL SL SCH (09:00)
[2021-05-22] MEDS ORDERED: amLODIPine BESYLATE 5 MG TAB PO SCH (09:00)
[2021-05-22] MEDS ORDERED: THIAMINE HCL 100 MG TAB PO SCH (09:00)
[2021-05-22] MEDS ORDERED: PANTOprazole 40 MG TAB PO SCH (09:00)
[2021-05-22] MEDS ORDERED: FOLIC ACID 1 MG TAB PO SCH (09:00)
[2021-05-22] MEDS ORDERED: MULTIVITAMIN TAB PO SCH (09:00)
[2021-05-22] MEDS ORDERED: ISOSORBIDE MONO EXTENDED REL 60 MG TABCR PO SCH (09:00)
[2021-05-22] MEDS ORDERED: EZETIMIBE 10 MG TABLET PO SCH (09:00)
--- NOTE | 2021-05-22 09:38 | Cardiology Consultation ---
Date of Consultation May 22, 2021 Assessment & Plan (1) Chest pain: (2) Abnormal EKG: (3) Aortic arch atherosclerosis: (4) Lupus anticoagulant disorder: (5) Carotid stenosis: (6) ASCVD (arteriosclerotic cardiovascular disease): Complex 75-year-old male admitted with resting chest pain, unlike prior angina. EKGs without acute change, ST-T wave abnormality similar to prior tracings. Troponin negative x3. Resting echocardiography requested. Pending echocardiogram results, consideration will be made for Lexiscan nuclear stress testing though patient is notably high risk for cardiac catheterization as discussed. Further recommendations pending the above, evaluation by Dr. Elias, and the patient's ongoing hospitalization. Patient seen and examined with Noel Knapp PA-C. Agree with findings and assessment as above. Atypical chest discomfort after lifting heavy bucket of apples. Ischemic work-up unremarkable including echocardiogram with no new wall motion abnormalities. Okay to DC to home from a cardiac standpoint and will arrange outpatient Lexiscan nuclear stress test in the future. History of Present Illness Reason for Consultation: Chest pain Requesting Physician: Shanita Attending Physician: Naz History of Present Illness Mr. Andrew Reardon is a very pleasant 75-year-old male who is being seen today (/05/22/2021) at the request of Dr. Trejo, evaluation of chest discomfort. The patient states that he was in his usual state until last evening around 6 PM. He notes picking eleven 5 gallon buckets of apples yesterday morning and then taking it easy throughout the day. Last evening he went to put the apples away then came back inside and felt a little funny. He subsequently developed significant stabbing nonradiating substernal chest pain with associated nausea. On questioning, he states that the pain was unlike his prior angina which he describes as a crushing in type of pain that radiated into the jaw. He notes that he took 3 nitroglycerin in total, one when his Yun loaded him up and two on the way to the Emergency Room. He notes no improvement after taking three sublingual nitroglycerin. He notes improvement eventually following administration of morphine in the ER. EKG on presentation revealed sinus rhythm at 77 bpm with a first-degree AV block, possible old septal infarct, and inferior and lateral ST-T wave abnormality. No acute changes observed on EKG. Troponin was negative on presentation, subsequently x3. EKG this morning revealed sinus bradycardia at 56 bpm with a first-degree AV block, possible old septal infarct, stable inferior and lateral STT wave abnormality. 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 He has not had any additional chest pain since admission. Past Medical/Surgical History: ASCVD December 13, 2009 NSTEMI. December 2009 coronary angiography with branch vessel coronary disease, 80% narrowing of a sub branch of the LAD with moderate irregularities of other vessels. May 2012 acute anterolateral myocardial infarction secondary to a total occlusion of the LAD diagonal artery status post POBA by Dr. Maier. Residual total occlusion of a posterior branch of the diagonal noted with prior catheterization showing that this vessel was very small in caliber. Additional angiography showed mild, nonobstructive coronary disease with no lesion over 30%. There was moderate LV systolic dysfunction with an LVEF of 40-45% noted with follow-up [facility] in August 2013 demonstrating an LVEF of 57%. Severe atherosclerotic plaque(s) in the aortic arch and descending aorta. Left renal and splenic infarctions, July 2016. Right occipital and left cerebellar infarcts. Lupus anticoagulant disorder Hypertension Dyslipidemia with an optimal LDL goal of < 70 mg/dL. Mild nonobstructive internal carotid disease without infarction COPD with past tobacco abuse Reflux esophagitis Parathyroid abnormality, followed by [facility] Endocrinology Osteoarthritis Avascular necrosis of the hips. Left rotator cuff tear and possible avascular necrosis, adhesive capsulitis. Idiopathic peripheral neuropathy Chronic alcohol use/abuse Cervicogenic headaches Diverticulosis/diverticulitis Family History: Mother at 83 with an HI. Father at 79 after multiple HI's, CABG surgery, and BiV pacer implantation. Social History: Prior smoker having smoked from the age of 15 to 61. Previously chewed a can/day until the age of 61. with two grown boys, both without cardiac problems. Enjoys hunting, including rattle snakes, fishing, etc. ROS: No recent changes in his health. No recent colds or illness. No recent changes in his medications. No recent travel. He denies recent injury however I, as requested by the patient, talked with his Yun via telephone who noted that he fell on the stairs the other night, about 5 days ago, while helping her got a box down for [employer], landing on his right hip. He notes no recent exertional chest pain, change in breathing, or palpitations. No headaches or unilateral complaints to suggest TIA/CVA. No dizziness with positional change. No near syncope or syncope. No fevers or chills. No rash. No tick bites. Allergies Allergy/AdvReac Type Severity Reaction Status Date / Time Beta-Blockers Allergy Unknown Verified 05/21/21 19:32 (Beta-Adrenergic Bloc Home Medications Medication Instructions Recorded Confirmed Type amlodipine 10 mg tablet 10 mg PO QAM tab 05/04/19 05/21/21 History aspirin 81 mg tablet,delayed 81 mg PO QAM tab 05/04/19 05/21/21 History release cholecalciferol (vitamin D3) 50 4,000 unit PO QAM cap 05/04/19 05/21/21 History mcg (2,000 unit) capsule (Vitamin D3) esomeprazole magnesium 40 mg 40 mg PO QAM cap 05/04/19 05/21/21 History capsule,delayed release isosorbide mononitrate 120 mg 120 mg PO QAM tab 05/04/19 05/21/21 History tablet,extended release 24 hr nitroglycerin 0.4 mg sublingual 0.4 mg SUBLINGUAL .COMPLEX 05/04/19 05/21/21 History tablet (Nitrostat) vitamin B complex 1 tab PO QAM tab 05/04/19 05/21/21 History calcitriol 0.5 mcg capsule 0.5 mcg PO QAM 11/28/19 05/21/21 History cyanocobalamin (vitamin B-12) 5,000 mcg SUBLINGUAL DAILY 02/22/20 05/21/21 History 5,000 mcg sublingual tablet lisinopril 20 mg tablet 20 mg PO QAM 05/06/20 05/21/21 History ezetimibe 10 mg tablet 10 mg PO DAILY 02/10/21 05/21/21 History rosuvastatin 40 mg tablet 40 mg PO DAILY 02/10/21 05/21/21 History metoprolol succinate 50 mg 75 mg PO DAILY 05/21/21 05/21/21 History tablet,extended release 24 hr warfarin 1 mg tablet 1 mg PO SUTUTHSA 05/21/21 05/22/21 History warfarin 2.5 mg tablet 2.5 mg PO MOWEFR 05/22/21 05/22/21 History Patient History Medical History (Updated 05/22/21 @ 13:42 by Gertrude Smith PA-C) Alcohol use Aortic arch atherosclerosis CAD (coronary artery disease) "2009 - NSTEMI 2012 - anterolateral STEMI, s/p POBA to LAD diagonal artery occlusion" Carpal tunnel syndrome of right wrist Diastolic CHF Diverticulosis of colon HTN (hypertension) Hypospadias Low bone mass Lupus anticoagulant disorder Parathyroid abnormality Vitamin deficiency Surgical History Carpal tunnel syndrome History of total right hip replacement Family History Other Diabetes Heart disease Social History Smoking Status: Former smoker Tobacco Type: Cigarettes packs per day: 0.5; Years Smoked: 55; Smoking End Date: 15 years ago; Number of Years Since Quit: 15; Do You Dip or Chew Tobacco: No; Hx Alcohol Use: Yes Alcohol type: beer Alcohol Intake Frequency: 4 or More x per/Week Hx Substance Use: No Preferred Language: Sammarinese Communication Ability: Effective Visual Impairment: No Limitations Hearing Ability: Normal Grease Buffer Required: No Beliefs That Will Affect Care: None marital status: Current Living Situation: Spouse current occupational status: retired Other Information That Helps Us Care for You: No Feels Safe at Home: Yes Safety Concerns: Feels Safe At This Time Assistive Devices: None Assistive Devices Comment: not with patient Review of Systems Review of Systems: Complete Review of Systems is as stated above, negative, or noncontributory. Physical Exam Physical Exam: General: NAD. HENT: Normocephalic. Eyes: PER. Conjunctiva pink, sclera clear. Neck: Bilateral carotid bruits. No JVD. Heart: RRR, 60 bpm. Grade II/ systolic ejection murmur. Lungs: Decreased breath sounds throughout all lung coyne. No abnormal breath sounds appreciated. Abdomen: +BS. Soft. Nontender. No masses or organomegaly. Extremities: No edema. No clubbing. No cyanosis. Skin: Multiple small excoriations. No cellulitis/infection. No rash. Limited neurological examination is without focal deficit. Normal affect. Pulses: radial=3/4, posterior tibial=3/4. Results & Data ([facility]) Vital Signs (Past 12 Hours) Vital Signs Temp Pulse Pulse Resp BP BP Pulse Ox 05/22/21 07:56 36.5 C 60 12 122/67 96 05/22/21 04:21 37 C 55 L 19 131/64 96 05/22/21 02:26 63 05/22/21 00:40 36.6 C 58 L 18 140/74 96 05/22/21 00:39 05/22/21 00:00 36.8 C 57 L 13 136/66 05/21/21 23:30 56 L 15 126/70 05/21/21 23:00 58 L 15 118/66 95 05/21/21 22:30 58 L 14 117/64 94 05/21/21 22:00 57 L 14 121/62 94 Pulse Ox 05/22/21 07:56 05/22/21 04:21 05/22/21 02:26 05/22/21 00:40 05/22/21 00:39 94 05/22/21 00:00 05/21/21 23:30 05/21/21 23:00 05/21/21 22:30 05/21/21 22:00
--- NOTE | 2021-05-22 11:26 | Hospitalist Progress Note ---
Date of Service May 22, 2021 Assessment & Plan (1) Chest pain: (2) CAD (coronary artery disease): (3) HTN (hypertension): (4) Alcohol use: Plan: This is a medically complex 75-year-old male who has significant past medical history of CAD, HTN, HLD, Lupus anticoagulant, hx of CVA, hx of L renal and splenic infarctions, mild carotid artery disease, COPD, THERESA on cpap, hx of tobacco abuse, current alcohol use who presented to ED after having chest pain while carrying gallons of apples that persisted at rest. He was seen and evaluated by cardiology. Troponins were cycled and negative x 3. He was started on IV heparin. Echocardiogram revealed normal EF, 55 to 60%, moderate hypokinesis of the basal inferior lateral wall, grade 1 diastolic dysfunction, mild aortic valve sclerosis. It is recommend patient undergo stress test as outpatient. His chest pain has resolved. Etiology of chest pain yesterday is unknown. Possible differentials include Angina, MSK, esophageal spasm, GERD. It did not resolve with ntg x 3, but with morphine prior to admission. He has not had a recurrence of chest pain. Per cardiology he is to continue all of his home medications prior to arrival. His heparin will be discontinued and we will resume his warfarin. At discharge patient is hemodynamically stable and in good condition. Admission and Anticipated Discharge Date Admission Date: May 21, 2021 Supervising Physician Co-Signing Physician Notes Patient is seen and examined at bedside. Chest pain resolved. Denies nausea, vomiting, abdominal pain, dizziness, dyspnea Troponin x3 Negative. Echo showed moderate hypokinesis of basal inferolateral wall Discussed with cardiology today On exam patient is moderately built and nourished, no apparent distress, normocephalic atraumatic, EOMI, lungs are clear to auscultation, normal breath sounds, S1 2,+ murmur, no pedal edema, abdomen soft, nontender, normal bowel sounds, alert, awake, oriented, grossly no focal deficits. Patient is admitted for chest pain rule out ACS Troponin is negative EKG showed no acute ST-T wave changes Patient was suggested to have stress test as outpatient. Patient agrees with current management Appreciate cardiology input Continue aspirin, statin, metoprolol, lisinopril NTG PRN I personally reviewed the record. Patient is interviewed and examined at bedside. Patient's care is coordinated with Gertrude Herrera PA-C. Please refer to the documentation above for details of patient's presentation and for discussion of other issues. Subjective Patient was seen and examined in room 104-1. Follow up Chest pain. He states he was picking up apples yesterday morning. He was then walking his bucket of apples in the garage yesterday afternoon when he developed gradual onset of substernal chest pain. Pain was non radiating and associated with dry heave when he got to ER. HE denies diaphoresis, sob, palpitations and nausea. He went to sit down after chest pain started and with rest it got worse. He tried 1 NTG prior to hospital and had additional 2 en route w/o improvement. Sx are not similar to prior presentation. When he had AK in past presented as a, "crushing chest pain sensation." He describes this pain as sharp. He denies any recent trauma. He has hx of GERD and does not feel this is similar. Currently he is chest pain free. His trops were negative x 3. Echo revealed normal EF, mod hypokinesis of basal inferorlateral wall, grade 1 diastolic dysfunction, av sclerosis. Review of Systems Review of Systems: All systems reviewed & are unremarkable except as noted in HPI & below Physical Exam Physical Exam: Gen: WD/WN, unkempt facial hair, M, NAD, A&O x3 HEENT: Normocephalic, atraumatic, conjunctivae moist, sclerae anicteric, mucous membranes moist. Lung: Clear to Auscultation bilaterally, no wheezes/rales/rhonchi Heart: Regular rate, regular rhythm, 2/6 REAGAN noted RUSB, rubs, or gallops Abdomen: Soft, NT, ND +BS x 4 Extremities: No edema Skin: Warm, no rash, negative turgor. Results & Data Results & Data ([facility]) Vital Signs (Past 12 Hours) Vital Signs Temp Pulse Pulse Resp BP BP Pulse Ox 05/22/21 07:56 36.5 C 60 12 122/67 96 05/22/21 04:21 37 C 55 L 19 131/64 96 05/22/21 02:26 63 05/22/21 00:40 36.6 C 58 L 18 140/74 96 05/22/21 00:39 05/22/21 00:00 36.8 C 57 L 13 136/66 05/21/21 23:30 56 L 15 126/70 Pulse Ox 05/22/21 07:56 05/22/21 04:21 05/22/21 02:26 05/22/21 00:40 05/22/21 00:39 94 05/22/21 00:00 05/21/21 23:30 Laboratory Results Short CBC 05/21/21 05/21/21 05/21/21 Range/Units 19:30 19:30 20:17 WBC 3.92 L (4.8-10.8) K/uL Hgb 15.5 (14.0-18.0) g/dL Hct 45.5 (42-52) % Plt Count 167 (130-400) K/uL Potassium 3.2 L (3.5-5.1) mmol/L Troponin I < 0.015 < 0.015 (0-0.045) ng/ml 05/22/21 05/22/21 Range/Units 04:46 04:46 WBC 3.42 L (4.8-10.8) K/uL Hgb 14.4 (14.0-18.0) g/dL Hct 42.2 (42-52) % Plt Count 132 (130-400) K/uL Potassium 3.9 D (3.5-5.1) mmol/L Troponin I < 0.015 (0-0.045) ng/ml BMP 05/21/21 05/21/21 05/22/21 19:30 20:17 04:46 Sodium 142 142 Potassium 3.2 L 3.9 D Chloride 110 H 110 H Carbon Dioxide 25 25 BUN 11 7 Creatinine 1.07 0.73 D Glucose 126 H 111 H Calcium 9.2 8.6 Cardiac Enzymes 05/21/21 05/21/21 05/22/21 Range/Units 19:30 20:17 04:46 Troponin I < 0.015 < 0.015 < 0.015 (0-0.045) ng/ml Liver Function 05/21/21 05/21/21 Range/Units 19:30 20:17 Total Bilirubin 0.5 (0.2-1) mg/dl AST 22 (15-37) U/L ALT 26 (12-78) U/L Alkaline Phosphatase 69 (45-117) U/L Albumin 4.0 (3.4-5.0) gm/dl Diagnostic Findings Chest X-Ray 05/21/21 19:26 XR chest 1V portable HISTORY: Atypical Chest Pain COMPARISON: Chest 05/06/2020. FINDINGS: No pneumothorax. No pleural effusions. The heart is normal in size. Left basilar linear densities favor subsegmental atelectasis. Otherwise, lungs are clear. No focal lung consolidations to suggest pneumonia. No evidence for pulmonary edema. Mildly tortuous thoracic aorta, unchanged. IMPRESSION: A few left basilar linear densities suggesting subsegmental atelectasis. Otherwise, no acute process within the chest. ACT 112: Negative or not required by law. Electronically signed by: Kenrick Ponce M.D. 05/21/2021 8:00 PM Medications Administered Medication List Amlodipine Besylate (Amlodipine Besylate 5 Mg Tab) [facility] Stop: 06/21/21 08:59 Last Admin: 05/22/21 08:00 Dose: 10 mg Documented by: [id number] Aspirin (Aspirin 81 Mg Ectab) 81 mg PO QAM [facility] Stop: 06/21/21 08:59 Last Admin: 05/22/21 08:00 Dose: 81 mg Documented by: [id number] Cyanocobalamin (Cyanocobalamin (Vitamin B-12) 2,500 Mcg Tab.Subl) 5,000 mcg SL DAILY [facility] Stop: 06/21/21 08:59 Last Admin: 05/22/21 08:00 Dose: 5,000 mcg Documented by: [id number] Ezetimibe (Ezetimibe 10 Mg Tablet) 10 mg PO DAILY [facility] Stop: 06/21/21 08:59 Last Admin: 05/22/21 08:00 Dose: 10 mg Documented by: [id number] Folic Acid (Folic Acid 1 Mg Tab) 1 mg PO QAM [facility] Stop: 06/21/21 08:59 Last Admin: 05/22/21 08:00 Dose: 1 mg Documented by: [id number] Heparin Sodium/Dextrose (Heparin Sodium/Dextrose) 25,000 units in 500 mls @ 17 mls/hr IV .Q24H MAGGIE; Protocol Stop: 06/20/21 23:14 Last Titration: 05/22/21 07:47 Dose: 850 units/hr, 17 mls/hr Documented by: [id number] Cosigned by: [id number] Titration: 05/22/21 05:40 Dose: 0 units/hr, 0 mls/hr Documented by: [id number] Cosigned by: [id number] Admin: 05/21/21 23:33 Dose: 1,150 units/hr, 23 mls/hr Documented by: [id number] Cosigned by: [id number] Isosorbide Mononitrate (Isosorbide [place] Extended Rel 60 Mg Tabcr) 120 mg PO [facility] Stop: 06/21/21 08:59 Last Admin: 05/22/21 08:00 Dose: 120 mg Documented by: [id number] Lisinopril (Lisinopril 20 Mg Tab) [facility] Stop: 06/21/21 08:59 Last Admin: 05/22/21 08:00 Dose: 20 mg Documented by: [id number] Metoprolol Succinate (Metoprolol Succ 25mg Ext Rel Tab) 75 mg PO DAILY [facility] Stop: 06/21/21 08:59 Last Admin: 05/22/21 08:00 Dose: 75 mg Documented by: [id number] Multivitamins (Multivitamin Tab) 1 tab PO [facility] Stop: 06/21/21 08:59 Last Admin: 05/22/21 08:01 Dose: 1 tab Documented by: [id number] Pantoprazole Sodium (Pantoprazole 40 Mg Tab) 40 mg PO [facility] Stop: 06/21/21 08:59 Last Admin: 05/22/21 08:01 Dose: 40 mg Documented by: [id number] Rosuvastatin Calcium (Rosuvastatin Calcium 20 Mg Tab) 40 mg PO DAILY [facility] Stop: 06/21/21 08:59 Last Admin: 05/22/21 08:01 Dose: 40 mg Documented by: [id number] Thiamine HCl (Thiamine Hcl 100 Mg Tab) [facility] Stop: 06/21/21 08:59 Last Admin: 05/22/21 08:01 Dose: 100 mg Documented by: [id number] Discontinued Medications Aspirin (Aspirin 81 Mg Chew) 324 mg PO NOW STA Stop: 05/21/21 19:39 Last Admin: 05/21/21 19:45 Dose: 324 mg Documented by: [id number] Heparin Sodium/Dextrose (Heparin Iv Adult Wt-Based Standard *No* Bolus Protocol) 1 ea IV Q15M [facility]; Protocol Stop: 05/22/21 02:00 Last Admin: 05/21/21 23:34 Dose: 1 ea Documented by: [id number] Heparin Sodium/Dextrose (Heparin 19692 Unit/500 Ml D5w) Confirm Administered Dose 25,000 units IV .STK-MED ONE Stop: 05/21/21 23:32 Last Admin: 05/21/21 23:34 Dose: Not Given Documented by: [id number] Sodium Chloride (Nss 1000ml) 500 mls @ 999 mls/hr IV .Q31M ONE Stop: 05/21/21 20:08 Last Infusion: 05/21/21 20:18 Dose: 0 mls/hr Documented by: [id number] Admin: 05/21/21 19:45 Dose: 999 mls/hr Documented by: [id number] Potassium Chloride 40 meq/ (Sodium Chloride) 1,020 mls @ 50 mls/hr IV .[id number] MAGGIE Stop: 06/21/21 01:29 Last Admin: 05/22/21 01:40 Dose: 50 mls/hr Documented by: [id number] Morphine Sulfate (Morphine Sulfate 4 Mg/Ml 1 Ml Carp\\Vial) 4 mg IV NOW STA Stop: 05/21/21 19:39 Last Admin: 05/21/21 19:44 Dose: 4 mg Documented by: [id number] Ondansetron HCl (Ondansetron Inj 2 Mg/Ml 2 Ml Vial) 4 mg IV NOW STA Stop: 05/21/21 19:39 Last Admin: 05/21/21 19:44 Dose: 4 mg Documented by: [id number] Potassium Chloride (Potassium Chloride Crtab 20 Meq Tabcr) 40 meq PO NOW STA Stop: 05/21/21 20:49 Last Admin: 05/21/21 21:08 Dose: 40 meq Documented by: [id number]
--- NOTE | 2021-05-22 13:46 | Discharge Summary ---
Date of Service May 22, 2021 Admission HPI Per Admitting Provider History obtained from patient and records. Medical history significant for chronic diastolic heart failure (EF 50 to 55% TTE 2019), CAD status post angioplasty/CVA/PVD, PAF/hypercoagulable state (hx lupus anticoagulant disorder/left renal and splenic infarctions) on Coumadin, hypertension, hyperlipidemia, prediabetes, alcohol abuse as per records, past tobacco abuse. Last confinement February 2020 for Salmonella gastroenteritis. Patient had achy sharp substernal pain with shortness of breath today somewhat similar to episodes in the past. Nausea, dry heaving without abdominal pain. Patient compliant with home medications. Does not check blood pressure at home. No unusual stress at home. Chest discomfort subsequently relieved by nitroglycerin intake at home. SBP 180s upon arrival at the ER. 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 Admission Exam Per Admitting Provider GENERAL: Comfortable, pleasant, no respiratory distress SKIN: Normal color, warm HEENT: Angostura palpebral conjunctivae, no ptosis, moist buccal mucosa NECK : Supple, no tenderness CHEST : CTA, no tenderness HEART : RRR, no obvious murmurs ABDOMEN: Some distention, nontender EXTREMITIES : No LE swelling/tenderness, no other conspicuous deformities noted NEUROLOGIC : Coherent, no facial asymmetry, no other gross focality Principal Diagnosis Chest Pain Known CAD HTN Hypokalemia Discharge Data Allergies Allergy/AdvReac Type Severity Reaction Status Date / Time Beta-Blockers Allergy Unknown Verified 05/21/21 19:32 (Beta-Adrenergic Bloc Consultations 05/21/21 20:41 ED Decision to Admit Stat 05/22/21 00:39 Consult Cardiology Routine Ordered Studies Chest X-Ray 05/21/21 19:26 XR chest 1V portable HISTORY: Atypical Chest Pain COMPARISON: Chest 05/06/2020. FINDINGS: No pneumothorax. No pleural effusions. The heart is normal in size. Left basilar linear densities favor subsegmental atelectasis. Otherwise, lungs are clear. No focal lung consolidations to suggest pneumonia. No evidence for pulmonary edema. Mildly tortuous thoracic aorta, unchanged. IMPRESSION: A few left basilar linear densities suggesting subsegmental atelectasis. Otherwise, no acute process within the chest. ACT 112: Negative or not required by law. Electronically signed by: Kenrick Ponce M.D. 05/21/2021 8:00 PM Echo: EF 55-60%, grade 1 diastolic dysfunction, moderate basal hypokinesis inferolateral black Hospital Course (1) Chest pain: (2) Hypokalemia: (3) CAD (coronary artery disease): (4) HTN (hypertension): (5) Alcohol use: This is a medically complex 75-year-old male who has significant past medical history of CAD, HTN, HLD, Lupus anticoagulant, hx of CVA, hx of L renal and splenic infarctions, mild carotid artery disease, COPD, THERESA on cpap, hx of tobacco abuse, current alcohol use who presented to ED after having chest pain while carrying gallons of apples that persisted at rest. He received 3 NTG SL w/o improvement of symptoms. He also received 325mg ASA and IV morphine. Pain was resolved with IV morphine. Initial ecg revealed NSR, HR 77bpm with first- degree AV block, possible septal infarct old, and inferior and lateral ST-T wave abnormality. He was seen and evaluated by cardiology. Troponins were cycled and negative x 3. He was started on IV heparin. Echocardiogram revealed normal EF, 55 to 60%, moderate hypokinesis of the basal inferior lateral wall, grade 1 diastolic dysfunction, mild aortic valve sclerosis. It is recommend patient undergo stress test as outpatient. His chest pain has resolved. Etiology of chest pain yesterday is unknown. Possible differentials include Angina, MSK, esophageal spasm, GERD. He has not had a recurrence of chest pain. Per card iology he is to continue all of his home medications prior to arrival. His heparin will be discontinued and we will resume his warfarin. At discharge patient is hemodynamically stable and in good condition. Total Time Total Time Spent Total Time Spent (In Minutes): 60 minutes Discharge Plan Discharge Items Patient Disposition: Home - Self-Care Reason For Visit: CHEST PAIN Discharge Diagnosis: Atypical Chest Pain Condition on Discharge: Good Activity: As commented below Activity Comment: Do not resume physical activity until cleared by cardiology Bathing: No limitations Non-emergency contact: Primary Care Provider Call non-emergency contact if: you have any medication questions, your symptoms worsen, your pain is not controlled, your pain is worsening, your pain is unusual for you and your pain is concerning for you Follow-up/Referrals: Mario Mosquera MD [Primary Care Provider] - 05/25/21 2:20 pm (Date & Time 05/25/2021 2:20 PM Provider Nyla Farnsworth MD Department General Internal Medicine [facility] ) Diet: Heart Healthy Addtl Attending Provider Instructions: You were admitted to our hospital for evaluation of chest pain. Your blood work and echocardiogram were negative for heart attack. Your chest pain has resolved. Cardiology felt you were stable to be discharged home. They will schedule an outpatient stress test for you. I have scheduled a follow up with your PCP office, Dr. Mosquera. You will be seen by his colleague, Dr. Farnsworth. I encourage you to keep this appointment. Continue your current medication regimen as prescribed. Please resume your Coumadin this evening and follow up with coumadin clinic, on 05/24/2021. It was a pleasure taking care of you. Please take care of yourself. If you have any questions regarding your recent hospitalization please contact [facility], , and request [facility] Service. Gertrude Herrera PA-C Pending Studies at Discharge: No Stand-Alone Forms: My [facility], Smoking Cessation Medications and DC Order Prescriptions: Continued ezetimibe 10 mg tablet 10 mg PO DAILY RF: 0 rosuvastatin 40 mg tablet 40 mg PO DAILY RF: 0 amlodipine 10 mg tablet 10 mg PO QAM RF: 0 aspirin 81 mg tablet,delayed release (DR/EC) 81 mg PO QAM RF: 0 isosorbide mononitrate 120 mg tablet extended release 24 hr 120 mg PO QAM RF: 0 esomeprazole magnesium 40 mg capsule,delayed release(DR/EC) 40 mg PO QAM RF: 0 nitroglycerin [Nitrostat] 0.4 mg tablet, sublingual 0.4 mg Sublingual .COMPLEX RF: 0 vitamin B complex tablet 1 tab PO QAM RF: 0 cholecalciferol (vitamin D3) [Vitamin D3] 2,000 unit capsule 4,000 unit PO QAM RF: 0 calcitriol 0.5 mcg capsule 0.5 mcg PO QAM RF: 0 cyanocobalamin (vitamin B-12) 5,000 mcg Tablet, Sublingual 5,000 mcg SUBLINGUAL DAILY RF: 0 lisinopril 20 mg tablet 20 mg PO QAM RF: 0 metoprolol succinate 50 mg tablet extended release 24 hr 75 mg PO DAILY RF: 0 warfarin 1 mg tablet 1 mg PO SUTUTHSA RF: 0 warfarin 2.5 mg Tablet 2.5 mg PO MOWEFR RF: 0 Discharge Orders: Discharge Order (Routine); Ordered 05/22/21 Ordered By: Gertrude Smith Admission Data Admit Date/Time: 05/21/21 22:50 Attending Provider: Eber Childs Admit Provider: Jay Jay Diehl Primary Care Provider: Mario Mosquera Other Providers: Jay Jay Diehl ; Randal Elias ; Willem Cedeno ; Timo Brown ; Goyo Temple ; Virgilio Wen ; Noel Knapp ; Taylor Andrew ; Jailene Lopez ; Lea Kwong ; Adelfo Cooper ; Gertrude Smith Other Interventions: Discharge Summary Assessment (RN) Last Done: 05/22/21 13:42 Supervising Physician Co-Signing Physician Notes Patient is seen and examined at bedside. Chest pain resolved. Denies nausea, vomiting, abdominal pain, dizziness, dyspnea Troponin x3 Negative. Echo showed moderate hypokinesis of basal inferolateral wall Discussed with cardiology today On exam patient is moderately built and nourished, no apparent distress, normocephalic atraumatic, EOMI, lungs are clear to auscultation, normal breath sounds, S1 2,+ murmur, no pedal edema, abdomen soft, nontender, normal bowel sounds, alert, awake, oriented, grossly no focal deficits. Patient is admitted for chest pain rule out ACS Troponin is negative EKG showed no acute ST-T wave changes Patient was suggested to have stress test as outpatient. Patient agrees with current management Appreciate cardiology input Continue aspirin, statin, metoprolol, lisinopril NTG PRN I personally reviewed the record. Patient is interviewed and examined at bedside. Patient's care is coordinated with Gertrude Herrera PA-C. Please refer to the documentation above for details of patient's presentation and for discussion of other issues.
--- NOTE | 2021-05-22 15:27 | Electrocardiogram Report ---
Test Reason : Blood Pressure : / mmHG Vent. Rate : 077 BPM Atrial Rate : 077 BPM P-R Int : 250 ms QRS Dur : 082 ms QT Int : 370 ms P-R-T Axes : 090 031 082 degrees QTc Int : 418 ms Poor data quality, interpretation may be adversely affected Sinus rhythm with 1st degree A-V block Septal infarct (cited on or before 06-MAY-2020) Abnormal ECG When compared with ECG of 06-MAY-2020 17:18, IL interval has increased Questionable change in initial forces of Septal leads Confirmed by Ryan Butler ([id number]) on 05/22/2021 3:27:29 PM Referred By: REFERRED SELF Confirmed By:Ryan Butler
--- NOTE | 2021-05-22 15:42 | Electrocardiogram Report ---
Test Reason : Blood Pressure : / mmHG Vent. Rate : 056 BPM Atrial Rate : 056 BPM P-R Int : 270 ms QRS Dur : 080 ms QT Int : 408 ms P-R-T Axes : 068 007 094 degrees QTc Int : 393 ms Sinus bradycardia with 1st degree A-V block Septal infarct (cited on or before 06-MAY-2020) Abnormal ECG When compared with ECG of 21-MAY-2021 19:22, (unconfirmed) Premature ventricular complexes are no longer Present Confirmed by Ryan Butler ([id number]) on 05/22/2021 3:42:32 PM Referred By: REFERRED SELF Confirmed By:Ryan Butler
== END 2021-05-22 13:56 | disposition home or self-care (01) ==
LOC: ED 19:12 → 1E 19:12

== ENCOUNTER 2023-10-03 23:50 | Observation (INO) ==
[2023-10-04] MEDS ORDERED: NITROGLYCERIN 2% OINTMENT 30GM TUBE EXT STA (00:45)
[2023-10-04 00:59] LABS: Albumin Globulin Ratio 1.8 (0.9-2); Albumin Level 4.4 gm/dl (3.4-5.0); Bilirubin,Total 0.7 mg/dl (0.2-1.0); Calcium 9.4 mg/dl (8.6-10.3); Creatinine Clr Calc Pharmacy 55.8 ml/min; Est GFR (African American) 82.6 ml/min; Est GFR (Non-African American) 71.3 ml/min; Globulin 2.4 gm/dl (2.5-4.0); Potassium 3.7 mmol/L (3.5-5.1); Total Protein 6.8 gm/dl (6.0-8.3)
[2023-10-04 01:01] LABS: Basophils # (auto) 0.01 K/uL (0.00-0.20); Basophils % (auto) 0.3 %; Eosinophils # (auto) 0.14 K/uL (0.00-0.50); Eosinophils % (auto) 3.9 %; Hematocrit (blood only) 44.3 % (42.0-52.0); Immature Granulocytes # (auto) 0.01 K/uL (0.01-0.20); Immature Granulocytes % (auto) 0.3 %; Lymphocytes # (auto) 0.98 K/uL (1.20-3.40); Lymphocytes % (auto) 27.5 %; Mean Corpuscular Hemoglobin 30.5 pg (25.0-34.0); Mean Corpuscular Hgb Conc 33.9 g/dL (32.0-36.0); Mean Corpuscular Volume 90.2 fL (80.0-100.0); Mean Platelet Volume 10.9 fL (9.4-12.4); Monocytes # (auto) 0.38 K/uL (0.11-0.59); Monocytes % (auto) 10.6 %; Neutrophils # (auto) 2.05 K/uL (1.40-6.50); Neutrophils % (auto) 57.4 %; Platelet Count 155 K/uL (130-400); RDW Coefficient of Variation 12.9 % (11.5-14.5); RDW Standard Deviation 41.9 fL (36.4-46.3); Red Blood Count 4.91 M/uL (4.70-6.10); White Blood Count 3.57 K/ul (4.8-10.8)
[2023-10-04 01:05] LABS: Troponin I High Sensitivity 8.4 pg/ml (0-20)
[2023-10-04 01:28] LABS: Partial Thromboplastin Ratio 1.5; Partial Thromboplastin Time 43 Seconds (21-31)
[2023-10-04 01:54] LABS: INR 2.6 (0.9-1.1); Prothrombin Time 26.7 Seconds (9.0-12.0)
[2023-10-04] MEDS ORDERED: LACTATED RINGER'S 1,000 ML IV ONE (03:47)
[2023-10-04 04:08] LABS: Magnesium 1.9 mg/dl (1.7-2.4)
[2023-10-04] MEDS ORDERED: POTASSIUM CHLORIDE CRTAB 20 MEQ TABCR PO STA (05:12)
--- NOTE | 2023-10-04 05:14 | History & Physical Report ---
Date of Service October 04, 2023 Assessment & Plan (1) Chest pain: Plan: Chest pain: Rule out ACS given nitro relief hx CAD status post angioplasty/CVA/PVD chronic diastolic heart failure, patient euvolemic PAF/hypercoagulable state (hx lupus anticoagulant disorder/left renal and splenic infarctions) on Coumadin, INR therapeutic hyperlipidemia on statin Rx COPD, lung status at baseline prediabetes, hemoglobin A1c of 5.6 in 2021 alcohol abuse as per records past tobacco abuse OBS PCU Trend troponin Cardiology consult Re: Chest pain, history CAD N.p.o. until patient seen by Cardiology in a.m. in anticipation of ischemic workup Hold Coumadin in anticipation of any procedure. AWSS at risk protocol, DT precautions Update hemoglobin A1c, lipid profile DVT prophylaxis Coumadin INR goal between 2 and 3 contingent on cardiology eval Full code Text document was generated using [employer] recognition software. It may contain grammatical or spelling errors. Kindly contact undersigned for clarification of any documentation item in question. History of Present Illness Chief Complaint: Chest pain Primary Care Provider: Mario Mosquera MD History obtained from patient and records. Medical history significant for chronic diastolic heart failure (EF 55 to 60% TTE 2020), CAD status post angioplasty/CVA/PVD, PAF/hypercoagulable state (hx lupus anticoagulant disorder/left renal and splenic infarctions) on Coumadin, hypertension, hyperlipidemia, COPD, prediabetes, alcohol abuse as per records, past tobacco abuse. Last confinement 2020 for chest pain. Outpatient stress test showed bruce-infarct ischemia. Medical management recommended. Patient experienced achy substernal pain across his chest last night different from other episodes in the past. No radiation to the neck. Some shortness of breath. No unusual cough symptoms. Some relief with night nitroglycerin taken at home and later administered by EMS. Patient compliant with home medications. Denies unusual stress. 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 Allergies Allergy/AdvReac Type Severity Reaction Status Date / Time No Known Allergies Allergy Verified 10/04/23 00:37 Home Medications Medication Instructions Recorded Confirmed Type aspirin 81 mg tablet,delayed 81 mg PO QAM 05/04/19 10/04/23 History release esomeprazole magnesium 40 mg 40 mg PO QAM 05/04/19 10/04/23 History capsule,delayed release isosorbide mononitrate 120 mg 120 mg PO QAM 05/04/19 10/04/23 History tablet,extended release 24 hr nitroglycerin 0.4 mg sublingual 0.4 mg sublingual .COMPLEX 05/04/19 10/04/23 History tablet (Nitrostat) vitamin B complex 1 tab PO QAM 05/04/19 10/04/23 History cyanocobalamin (vitamin B-12) 5,000 mcg sublingual DAILY 02/22/20 10/04/23 History 5,000 mcg sublingual tablet lisinopril 20 mg tablet 20 mg PO QAM 05/06/20 10/04/23 History ezetimibe 10 mg tablet 10 mg PO DAILY 02/10/21 10/04/23 History rosuvastatin 40 mg tablet 40 mg PO DAILY 02/10/21 10/04/23 History metoprolol succinate 50 mg 75 mg PO DAILY 05/21/21 10/04/23 History tablet,extended release 24 hr amlodipine 5 mg tablet 5 mg PO DAILY 10/04/23 10/04/23 History multivitamin with minerals-folic 1 tab PO DAILY 10/04/23 10/04/23 History acid 400 mcg-lycopene 370 mcg tablet (One-A-Day Men's 50 Plus) warfarin 1 mg tablet 1 mg PO UD 10/04/23 10/04/23 History warfarin 5 mg tablet 0 mg PO UD 10/04/23 10/04/23 History Past Med/Surg History Medical History (Updated 10/04/23 @ 06:27 by Miguel Ángel Maldonado MD) Aortic 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 Carpal tunnel syndrome of right wrist Diverticulosis of colon Hypospadias Vitamin deficiency Low bone mass Alcohol use Diastolic CHF HTN (hypertension) CAD (coronary artery disease) "2009 - NSTEMI 2012 - anterolateral STEMI, s/p POBA to LAD diagonal artery occlusion" Surgical History Carpal tunnel syndrome History of total right hip replacement Family History Other Diabetes Heart disease Social History Smoking Status: Former smoker Tobacco Type: Cigarettes packs per day: 0.5; Do You Dip or Chew Tobacco: No; Hx Alcohol Use: Yes Alcohol type: beer Alcohol Intake Frequency: 4 or More x per/Week Hx Substance Use: No Preferred Language: Wolof Communication Ability: Effective Visual Impairment: No Limitations Hearing Ability: Normal Base Manager Required: No Beliefs That Will Affect Care: None marital status: Current Living Situation: Spouse current occupational status: retired Feels Safe at Home: Yes Assistive Devices: None Review of Systems Review of Systems: As per HPI, all other systems reviewed and negative Physical Exam Physical Exam: GENERAL: Comfortable, pleasant, no respiratory distress SKIN: Normal color, warm HEENT: [place] palpebral conjunctivae, no ptosis, moist buccal mucosa NECK : Supple, no tenderness CHEST : Decreased breath sounds, no tenderness HEART : Bradycardic, systolic murmur ABDOMEN: Some distention, nontender EXTREMITIES : No LE swelling/tenderness, no other conspicuous deformities noted NEUROLOGIC : Coherent, no facial asymmetry, no other gross focality Results & Data Results & Data Vital Signs (Past 12 Hours) Vital Signs Temp Pulse Pulse Resp BP BP Pulse Ox 10/04/23 04:21 58 L 24 150/64 H 95 10/04/23 04:01 58 L 10/04/23 02:00 54 L 18 135/78 96 10/04/23 00:34 65 17 96 10/04/23 00:00 36.6 C 18 133/83 96 10/04/23 00:00 10/04/23 00:00 36.6 C 65 18 133/83 99 10/03/23 23:59 68 O2 Del Method 10/04/23 04:21 10/04/23 04:01 10/04/23 02:00 Room Air 10/04/23 00:34 10/04/23 00:00 10/04/23 00:00 Room Air 10/04/23 00:00 Room Air 10/03/23 23:59 Laboratory Results Laboratory Results WBC 3.57 K/ul (4.8-10.8) L 10/04/23 00:00 RBC 4.91 M/uL (4.70-6.10) 10/04/23 00:00 Hgb 15.0 g/dl (14.0-18.0) 10/04/23 00:00 Hct 44.3 % (42.0-52.0) 10/04/23 00:00 MCV 90.2 fL (80.0-100.0) 10/04/23 00:00 MCH 30.5 pg (25.0-34.0) 10/04/23 00:00 MCHC 33.9 g/dL (32.0-36.0) 10/04/23 00:00 RDW Std Deviation 41.9 fL (36.4-46.3) 10/04/23 00:00 RDW Coeff of Sena 12.9 % (11.5-14.5) 10/04/23 00:00 Plt Count 155 K/uL (130-400) 10/04/23 00:00 MPV 10.9 fL (9.4-12.4) 10/04/23 00:00 Immature Gran % (Auto) 0.3 % 10/04/23 00:00 Neut % (Auto) 57.4 % 10/04/23 00:00 Lymph % (Auto) 27.5 % 10/04/23 00:00 [place] % (Auto) 10.6 % 10/04/23 00:00 Eos % (Auto) 3.9 % 10/04/23 00:00 Baso % (Auto) 0.3 % 10/04/23 00:00 Neut # (Auto) 2.05 K/uL (1.40-6.50) 10/04/23 00:00 Lymph # (Auto) 0.98 K/uL (1.20-3.40) L 10/04/23 00:00 [place] # (Auto) 0.38 K/uL (0.11-0.59) 10/04/23 00:00 Eos # (Auto) 0.14 K/uL (0.00-0.50) 10/04/23 00:00 Baso # (Auto) 0.01 K/uL (0.00-0.20) 10/04/23 00:00 Immature Gran # (Auto) 0.01 K/uL (0.01-0.20) 10/04/23 00:00 PT 26.7 Seconds (9.0-12.0) H 10/04/23 00:00 INR 2.6 (0.9-1.1) H 10/04/23 00:00 APTT 43 Seconds (21-31) H 10/04/23 00:00 PTT Ratio 1.5 10/04/23 00:00 Sodium 140 mmol/L (136-145) 10/04/23 00:00 Potassium 3.7 mmol/L (3.5-5.1) 10/04/23 00:00 Chloride 107 mmol/L (98-107) 10/04/23 00:00 Carbon Dioxide 25 mmol/L (21-32) 10/04/23 00:00 Anion Gap 8 (3-11) 10/04/23 00:00 BUN 11 mg/dl (6-23) 10/04/23 00:00 Creatinine 1.00 mg/dl (0.6-1.4) 10/04/23 00:00 Est Cr Clr Drug Dosing 55.8 ml/min 10/04/23 00:00 Est GFR ( Amer) 82.6 ml/min 10/04/23 00:00 Est GFR (Non-Af Amer) 71.3 ml/min 10/04/23 00:00 BUN/Creatinine Ratio 11.0 (10-20) 10/04/23 00:00 Glucose 120 mg/dl (70-99(Fasting)) H 10/04/23 00:00 Calcium 9.4 mg/dl (8.6-10.3) 10/04/23 00:00 Magnesium 1.9 mg/dl (1.7-2.4) 10/04/23 00:00 Total Bilirubin 0.7 mg/dl (0.2-1.0) 10/04/23 00:00 AST 28 U/L (13-39) 10/04/23 00:00 ALT 20 U/L (7-52) 10/04/23 00:00 Alkaline Phosphatase 63 U/L (34-104) 10/04/23 00:00 Troponin I High Sens 8.4 pg/ml (0-20) 10/04/23 00:00 Total Protein 6.8 gm/dl (6.0-8.3) 10/04/23 00:00 Albumin 4.4 gm/dl (3.4-5.0) 10/04/23 00:00 Globulin 2.4 gm/dl (2.5-4.0) L 10/04/23 00:00 Albumin/Globulin Ratio 1.8 (0.9-2) 10/04/23 00:00 Lipase 39 U/L (11-82) 10/04/23 00:00 Diagnostic Findings Chest x-ray as per my interpretation cardiomegaly, atelectasis EKG as per my interpretation : Rate 65, NSR, LAD, LAFB, 1 AVB, T wave inversion lateral and septal leads, PVCs
[2023-10-04] MEDS ORDERED: THIAMINE HCL 100 MG in SYRINGE 9 ML IV ONE (05:15)
[2023-10-04] MEDS ORDERED: MAGNESIUM SULFATE / D5W 1 GM/100 ML BAG IV ONE (05:15)
[2023-10-04] MEDS ORDERED: PROMETHAZINE HCL 6.25 MG in SODIUM CHLORIDE 0.9% 50 ML IV PRN (05:18)
[2023-10-04] MEDS ORDERED: LORazepam 1 MG in SYRINGE 0.5 ML IV PRN (05:18)
[2023-10-04] MEDS ORDERED: MoRPHine SULFATE 2 MG/ML CARP IV PRN (05:18)
[2023-10-04] MEDS ORDERED: oxyCODONE HCL IR 5 MG TAB (IMMEDIATE RELEASE) PO PRN (05:18)
[2023-10-04] MEDS ORDERED: ACETAMINOPHEN 325 MG TAB PO PRN (05:19)
--- OUTSIDE RECORDS SUMMARY | 2023-10-04 05:21 | External Medical Summary | Summary of Care ---
Author Name Unknown Organization [facility] Address [address] [place] [address] Phone [phone] Care Team Providers Care Kiss Mixer Name Role Phone Mario Mosquera MD Primary Care Provider + Reason for Visit * Reason Onset Date Comments Precert In Process 07/02/2023 Synvics One A etna Medicare Adv Ana Rosa M Encounter Details Date Type Department Care Team (Late st Contact Info) Description 07/02/2023 Telephone Orthopaedics [facility] [address] [place] [address] Rafael Sanford MD [address] [place] [id number] Precert In Process (Synvics One Aetna Medi... Allergies No known active allergiesdocumented as of this encounter (statuses as of 10/01/2023) Medications Medication Sig Dispensed Refills Start Date End Date Status ASPIRIN 81 MG PO TABS one daily 0 Active B Complex Vitamins (B COMPLEX 50) TBCR Take by mouth. 0 7 Active Cyanocobalamin (B-12) 5000 MCG CAPS Take by mouth. 0 Active One-A-Day Mens 50+ Oral Tablet Take 1 Tab by mouth daily. 0 Active Famotidine 20 MG Oral Tablet (Pepcid) Take 1 Tablet by mouth in the morning and 1 Tablet before bedtime. 0 1 Active Nitroglycerin 0.4 MG Sublingual Tablet Sublingual (Nitrostat)Indicat ions:Chronic ischemic heart disease PLACE 1 TAB UNDER THE TONGUE EVERY 5 MINUTES NEEDED FOR PAIN, CHEST. 25 Tablet 11 2 Active Acetaminophen ER 650 MG Oral Tablet Extended Release Take 1 Tablet by mouth every 8 hours as needed. 0 Active Isosorbide Mononitrate ER 120 MG Oral Tablet Extended Release 24 Hour (Imdur)Indications :Chronic ischemic heart disease TAKE 1 TABLET BY MOUTH EVERY DAY 90 Tablet 3 3 Active Ezetimibe 10 MG Oral Tablet (Zetia)Indications :Dyslipidemia, goal LDL below 70 TAKE 1 TABLET BY MOUTH EVERY DAY 90 Tablet 3 3 Active Esomeprazole Magnesium 40 MG Oral Capsule Delayed ReleaseIndications :GERD (gastroesophageal reflux disease) TAKE 1 CAPSULE BY MOUTH EVERY DAY 90 Capsule 3 3 Active Metoprolol Succinate ER 50 MG Oral Tablet Extended Release 24 Hour (toPROL XL)Indications:Stephanie r syncope TAKE 1 AND 1/2 TABLETS DAILY BY MOUTH 135 Tablet 3 3 Active amLODIPine Besylate 5 MG Oral Tablet (Norvasc) Take 1 Tablet by mouth daily. 90 Tablet 3 3 Active Rosuvastatin Calcium 40 MG Oral Tablet (Crestor)Indicatio ns:Dyslipidemia, goal LDL below 70 TAKE 1 TABLET BY MOUTH EVERY DAY 90 Tablet 3 3 Active Warfarin Sodium 5 MG Oral Tablet (Coumadin)Indicati ons:PAF (paroxysmal atrial fibrillation) (HCC) TAKE 5MG (1 TABLET) TUES & SAT 2.5MG (1/2 TABLET) ALL OTHER DAYS BY MOUTH OR DIRECTED. 45 Tablet 3 2 09/03/20 23 Discontinued(Ref ill) Lisinopril 20 MG Oral Tablet (Prinivil) Take 1 Tablet (20 mg) by mouth in the morning. 90 Tablet 3 2 07/12/20 23 Discontinued Warfarin Sodium 1 MG Oral Tablet (Coumadin)Indicati ons:Lupus anticoagulant disorder (HCC),PAF (paroxysmal atrial fibrillation) (HCC) Take 1 tablet Mon, Wed, Fri & Sat or as directed by coag clinic 55 Tablet 3 3 08/27/20 23 Discontinued(Ref ill) documented as of this encounter (statuses as of 10/01/2023) Active Problems Problem Noted Date Diagnosed Date Stenosis of right subclavian artery 11/17/2021 Senile osteoporosis 08/30/2021 Chronic kidney disease, stage 3 unspecified 10/10 Diastolic dysfunction 11/03/2018 THERESA (obstructive sleep apnea) 11/20/2017 Parathyroid abnormality 08/19/2017 Lupus anticoagulant disorder 10/17/2016 MCC current use of anticoagulant therapy 0 10/01/2016 Overview: ICD-10 update of inactive term 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 Severe atherosclerotic plaque(s) in the descending aorta PAF (paroxysmal atrial fibrillation) 07/27/2016 High risk for fracture due to osteoporosis by DE XA scan 06/18/2016 Old OK (myocardial infarction) 06/06/2012 Mixed hyperlipidemia 08/16/2009 Overview: Per Lipid Taxonomy. HTN, goal below 140/90 01/17/2007 Reflux esophagitis 01/17/2007 CAD (coronary artery disease) Overview: December 2009 coronary angiography with branch vessel coronary disease, 80% narrowing of a sub branch of the LAD with moderate irregularities of other vessels. May 2012 acute anterolateral myocardial infarction secondary to a total occlusion of the LAD diagonal artery status post POBA by Dr. Maier. Residual total occlusion of a posterior branch of the diagonal noted with prior catheterization showing that his vessel was very small in caliber. There was moderate LV systolic dysfunction with an LVEF of 40-45% noted. Additional angiography showed mild, nonobstructive coronary disease with no lesion over 30%. Splenic infarct documented as of this encounter (statuses as of 10/01/2023) Resolved Problems Problem Noted Date Diagnosed Date Resolved Date Chronic kidney disease, stage 3 unspecified 10/24/2020 01/19/2021 Adverse reaction to DAYSI inhibitor drug 03/17/2020 06/14/2023 Overview: AMY with salmonella posioning as well Pre-diabetes 01/07/2020 07/26/2022 Other atherosclerosis of bere tj arteries of extremities, bilateral legs 03/09/2019 10/31/2021 Chronic diastolic congestive heart failure 12/25/2018 12/25/2018 Infarction of kidney 12/18/2017 019 Altered mental status 09/12/20172017 Other neutropenia 08/19/2017 12/31/2019 Altered mental status 06/11/20172016 Cervicogenic headache 01/28/20172022 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 Severe atherosclerotic plaque(s) in the descending aorta Osteoporosis 06/18/2016 08/19/2017 Diastolic CHF 12/28/2015 11/03/2018 Acute OK 05/30/2012 06/06/2012 Chronic ischemic heart disease 01/17/2007 12/25/2018 Pneumonia due to organism Overview: ICD-10 update of inactive term IDIO PERIPH NEURPTHY NOS 07/2018 PURE HYPERCHOLESTEROLEM 04/2009 Overview: Per Lipid Taxonomy. documented as of this encounter (statuses as of 10/01/2023) Immunizations Name Administration Dates Next Due COVID-19 mRNA, LNP-s, No Pre serve, 2-Dose Series ([facility]) 06/17/2021,11/18/2020,10/28/2020 COVID-19, LNP-s, No Preserve , Brennan-sucrose, Ages 12+ (Pfizer) 12/22/2021 Covid-19, Mrna, Lnp-s, Pf, B ivalent, 30 Mcg, IM, 12 yrs and above ([facility]) 06/29/2023,06/11/2022 H1N1 2009 Influenza, IM 10/01/2009 Pneumococcal Conjugate Vacc, 13 Valent (Prevnar) 11/08/2015 Pneumococcal Conjugate Vaccine, 7 Valent 010 Pneumococcal Polysaccharide PPV23 (Pneumovax) 12/23/2013 RSV Vac., Bivalent, Perfusio n F, Pf,0.5 Ml (Abrysvo) 06/29/2023 Seasonal Influenza, PF, 6 M & above, IM , (FluLaval or Fluzone) 06/03/2020,06/19/2018 Seasonal Influenza, Quadriva lent Hd (Fluzone Hd) 06/14/2023,05/22/2022,05/24/2021 Seasonal Influenza, Quadriva lent, No Preserve, IM 05/29/2017,06/18/2016 Seasonal Influenza, Split, I IV3, With Preserve, Inj 05/10/2015,05/12/2014,06/18/2013 Seasonal Influenza, Trivalen t, Adjuvanted, 65+ yrs 07/01/2019 TDAP (age 10 and older)(Boostrix) 11/16/2013 TDAP (age 11 and older)(Adacel) 01/07/1994 Varicella Zoster Vaccine (Adult) 05/22/2012 Zoster Vaccine Recombinant (Shingrix) 02/19/2020 ,10/17/2019 documented as of this encounter Social History Tobacco Use Types Packs/Day Years Used Date Smoking Tobacco: Former Cigarettes 0.5 55 Q uit: 09/24/2005 Smokeless Tobacco: Never Chew Quit: 02/14/2006 Alcohol Use Standard Drinks/Week Comments Yes 8.3 (1 standard drink = 0.6 oz p ure alcohol) about 2 drinks daily PHQ-2 Answer Date Recorded PHQ Adult Total Score 0 06/14/2023 Hunger Vital Sign Answer Date Recorded Within the past 12 months, y ou worried that your food would run out before you got the money to buy more. Never true 11/29/19 23 Within the past 12 months, t he food you bought just didn't last and you didn't have money to get more. Never true 11/28/2022 Sex and Gender Information Value Date Recorded Sex Assigned at Male 12/25/2018 11:44 AM EDT Gender Identity Male 12/25/2018 11:44 AM EDT Sexual Orientation Straight 12/25/2018 11 :44 AM EDT Job Start Date Occupation Industry Not on file Not on file Not on file documented as of this encounter Miscellaneous Notes * Telephone Encounter - Cierra Byrd LPN - 07/10/2023 4:21 PM EDT Message left for patient to call office needs to be advised that injection have not been approved d/t not doing PT * Telephone Encounter - Ana Rosa Hull OSA - 07/09/2023 2:34 PM EDT Denial recvd due to patient has not tried non-medication treatments ie. PT, home exercise programs,bracing, insoles. Updated referral. Phone # to discuss with a clinical reviewer * Telephone Encounter - Ana Rosa Hull OSA - 07/05/2023 10:17 AM EDT Recvd questionnaire to be completed, faxed back. * Telephone Encounter - Ana Rosa Hull OSA - 07/04/2023 12:43 PM EDT Auth submitted-pending ref#[id number] * Telephone Encounter - Arcelia Baum LPN - 07/03/2023 3:29 PM EDT Please request Synvisc One for patient. Thank you * Telephone Encounter - Eliza Ryan OSA - 07/02/2023 10:59 AM EDT Preferred medications with Aetna Medicare Adv are: Orthovisc, Synvisc, and Synvisc One [place] [phone] * Telephone Encounter - Arcelia Baum LPN - 07/02/2023 9:40 AM EDT Orthopaedics Pre-Cert Request Medication/Disease State Information: Medication: Hyaluronate- Durolane Is there radiological proof(x-ray, cat scan, mri of osteoarthritis? 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 Pt is requesting Durolane Office Information: Prescriber: Dr Rafael Sanford documented in this encounter Plan of Treatment Upcoming Encounters Date Type Department Care Team (Late st Contact Info) Description 10/21/2023 8:00 AM EST Anticoagulation Pharmacy, [facility] [address] [facility] [place] [address] Pharmacist1, [facility] [address] [facility] [place] [address] 12/23/2023 1:40 PM EDT Office Visit Endocrinology, [address] [address] Hetal Cali MD [address] [place] [id number] 12/27/2023 8:40 AM EDT Office Visit General Internal Medicine [facility] [place] [address] [facility] [place] [address] Mario Mosquera MD [address] [facility] [place] [address] 06/30/2024 9:40 AM EDT Office Visit Rheumatology [place] [address] [address] [place] [address] Damion Mulligan MD [address] [facility] [place] [address] Health Maintenance Due Date Last Done Comments *BISPHONATE OR OTHER ACCEPTABLE MEDICATION NEEDED FOR OSTEOPOROSIS (REFER TO SMARTSET #1146) 10/07/2022 Albumin/Creatinine Ratio 05/23/2023 05/23/2022 COVID-19 Vaccine (7 2022- season) 2023 06/29/2023, 06/29/2023, 06/11/2022, Additional history exists DTaP,Tdap,and Td Vaccines (3 - Td or Tdap) 11/17/2023 11/16/2013, 01/07/1994 GFR 12/26/2023 06/26/2023, 01/07, 07/13/2022, Additional history exists Depression Screening 06/14/2024 06/14/2023, 05/10/20 15 DXA Scan 06/26/2025 06/26/2023, 12/2020, 03/26/2019, Additional history exists Pneumococcal Vaccine: 65+ Years Completed 11/08/2015, 12/23/2013 Zoster Vaccines Completed 02/19/2020, 04/2020, 05/22/2012 COLONOSCOPY-EVERY 5 YRS AGES 18-100 Discontinued 11/07/2021, 11/07/2021, 09/07/2015, Additional history exists Influenza Vaccine (FLU shot) Completed 06/14/2023, 05/22/2022, 05/24/2021, Additional history exists VITAMIN D LEVEL ONCE IN A LIFETIME-USE SMARTSET# [id number] Completed 06/26/2023, 01/16/2023, 06/20/2022, Additional history exists GARDASIL-HPV IMMUNIZATION SERIES Aged Out No longer eligible based on patient's age to complete this topic Hepatitis B Aged Out No longer eligi ble based on patient's age to complete this topic MENINGOCOCCAL (MENACTRA/MENVEO) Aged Out No longer eligible based on patient's age to complete this topic documented as of this encounter Medical Devices Implanted Type Area Injection Molding Machine Setter Device Identifier Shelf Expiration Date Model / Serial / Lot Lens 24.0 Mx60 - [id number] - [id number] Implanted:Qty: 1 on 01/30/2018 by Russell Alaniz MD at OR [facility] Left: Eye [employer] : SURGICAL 07/09/2020 MX60-24.0 / [id number] / [id number] Envista Hydrophobic Acrylic Intraoular Lens Implanted:Qty: 1 on 02/11/2018 by Russell Alaniz MD at [facility] Right: Eye [employer] 08/08/2020 [id number] / [id number] / [id number] documented as of this encounter Advance Directives Latest Code Status on File Code Status Date Activated Date Inactivated Comments Full Code 02/11/2018 11:07 AM 02/11/2018 6:17 PM This o rder reflects the patients wishes and were consensually agreed upon. Code Status History Code Status Date Activated Date Inactivated Comments Full Code 01/30/2018 1:12 PM 01/30/2018 8:23 PM This order reflects the patients wishes and were consensually agreed upon. Care Teams Kiss Mixer Relationship Specialty Start Date End Date Mario Mosquera MD [address] [place] [address] PCP - General Internal Medicine 11/09/13 documented as of this encounter
--- OUTSIDE RECORDS SUMMARY | 2023-10-04 05:22 | External Medical Summary | Summary of Care ---
Author Name Unknown Organization [facility] Address [address] [place] [address] Phone [phone] Care Team Providers Care Shop Welder Name Role Phone Mario Mosquera MD Primary Care Provider + Reason for Visit * Reason Comments Dosage Adjustment In Person (Anticoag Cl inic) Encounter Details Date Type Department Care Team (Latest Contact Info) Description 09/05/2023 8:00 AM EST Anticoagulation Pharmacy, [facility] [address] [place] [address] Pharmacist1, [facility] 200 [place] [address] PAF (paroxysmal atrial fibrillation) (HCC)*; Lupus anticoagulant disorder (HCC); Anticoagulation management encounter; [facility] current use of anticoagulant therapy Allergies No known active allergiesdocumented as of this encounter (statuses as of 09/05/2023) Medications Medication Sig Dispensed Refills Start Date End Date Status ASPIRIN 81 MG PO TABS one daily 0 Act tj B Complex Vitamins (B COMPLEX 50) TBCR Take by mouth. 0 05/29/2017 Acti ve Cyanocobalamin (B-12) 5000 MCG CAPS Take by mouth. 0 Active One-A-Day Mens 50+ Oral Tablet Take 1 Tab by mouth daily. 0 Active Famotidine 20 MG Oral Tablet (Pepcid) Take 1 Tablet by mouth in the morning and 1 Tablet before bedtime. 0 06/06/2021 Active Nitroglycerin 0.4 MG Sublingual Tablet Sublingual (Nitrostat)Indication s:Chronic ischemic heart disease PLACE 1 TAB UNDER THE TONGUE EVERY 5 MINUTES NEEDED FOR PAIN, CHEST. 25 Tablet 11 02/27/2022 Active Acetaminophen ER 650 MG Oral Tablet Extended Release Take 1 Tablet by mouth every 8 hours as needed. 0 Active Isosorbide Mononitrate ER 120 MG Oral Tablet Extended Release 24 Hour (Imdur)Indications:Ch ronic ischemic heart disease TAKE 1 TABLET BY MOUTH EVERY DAY 90 Tablet 3 10/18/2022 Active Ezetimibe 10 MG Oral Tablet (Zetia)Indications:Dy slipidemia, goal LDL below 70 TAKE 1 TABLET BY MOUTH EVERY DAY 90 Tablet 3 10/18/2022 Active Esomeprazole Magnesium 40 MG Oral Capsule Delayed ReleaseIndications:GE RD (gastroesophageal reflux disease) TAKE 1 CAPSULE BY MOUTH EVERY DAY 90 Capsule 3 11/02/2022 Active Metoprolol Succinate ER 50 MG Oral Tablet Extended Release 24 Hour (toPROL XL)Indications:Near syncope TAKE 1 AND 1/2 TABLETS DAILY BY MOUTH 135 Tablet 3 12/10/2022 Active amLODIPine Besylate 5 MG Oral Tablet (Norvasc) Take 1 Tablet by mouth daily. 90 Tablet 3 01/02/2023 Active Rosuvastatin Calcium 40 MG Oral Tablet (Crestor)Indications: Dyslipidemia, goal LDL below 70 TAKE 1 TABLET BY MOUTH EVERY DAY 90 Tablet 3 04/18/2023 Active Lisinopril 20 MG Oral Tablet (Prinivil) TAKE 1 TABLET BY MOUTH EVERY DAY IN THE MORNING 90 Tablet 1 07/12/2023 Active Warfarin Sodium 1 MG Oral Tablet (Coumadin)Indications :Lupus anticoagulant disorder (HCC),PAF (paroxysmal atrial fibrillation) (HCC) Take 1 tablet Mon, Wed, , Sat & Sat or as directed by coag clinic 75 Tablet 3 08/27/2023 Active Warfarin Sodium 5 MG Oral Tablet (Coumadin)Indications :PAF (paroxysmal atrial fibrillation) (HCC) TAKE 5MG (1 TABLET) TUES & SAT 2.5MG (1/2 TABLET) ALL OTHER DAYS BY MOUTH OR DIRECTED. 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 Severe atherosclerotic plaque(s) in the descending aorta PAF (paroxysmal atrial fibrillation) 07/27/2016 High risk for fracture due to osteoporosis by DE XA scan 06/18/2016 Old [place] (myocardial infarction) 06/06/2012 Mixed hyperlipidemia 08/16/2009 Overview: [...] as of this encounter (statuses as of 09/05/2023) Resolved Problems Problem Noted Date Diagnosed Date [...] 06/18/2016 08/19/2017 Diastolic CHF 12/28/2015 11/03/2018 Acute GA 05/30/2012 06/06/2012 Chronic ischemic heart disease 01/17/2007 12/25/2018 Pneumonia due to organism Overview: ICD-10 update of inactive term IDIO PERIPH NEURPTHY NOS 07/2018 PURE HYPERCHOLESTEROLEM 04/2009 Overview: Per Lipid Taxonomy. documented as of this encounter (statuses as of 09/05/2023) Immunizations Name Administration Dates Next Due COVID-19 mRNA, LNP-s, No Pre serve, 2-Dose Series (Mopio) 06/17/2021,11/18/2020,10/28/2020 COVID-19, LNP-s, No Preserve , Brennan-sucrose, Ages 12+ (Pfizer) 12/22/2021 Covid-19, Mrna, Lnp-s, Pf, B ivalent, 30 Mcg, IM, 12 yrs and above (Mopio) 06/29/2023,06/11/2022 H1N1 2009 Influenza, IM 10/01/2009 Pneumococcal [...] on file documented as of this encounter Progress Notes * China Guerin, [facility] - 09/05/2023 7:52 AM EST Medication Therapy Disease Management - Anticoagulation Patient: Andrew Reardon | : 1945 Subjective Patient-Reported Symptoms: Patient Findings Negatives: Signs/symptoms of thrombosis, Signs/symptoms of bleeding, Change in health, Change in alcohol use, Change in activity, Upcoming invasive procedure, Missed doses, Extra doses, Change in medications, Change in diet/appetite, Bruising Objective Current Warfarin Dose As of 09/05/2023 Warfarin maintenance plan: 2.5 mg (5 mg x 0.5) every Sun, Tue, Katherine; 1 mg (1 mg x 1) all other days INR Result As of 09/05/2023 INR goal: 2.0-3.0 INR used for dosin.9 (09/05/2023) Assessment & Plan Warfarin Plan As of 09/05/2023 Full warfarin instructions: 2.5 mg every Sun, Tue, Katherine; 1 mg all other days Next INR check: 10/21/2023 Repeat PT/INR in 6 week(s) Weekly dose: not changed Additional Dosing Information: Description Needs reduced dose on doxycyline China Guerin RPh Clinical Pharmacist 09/05/2023, 7:52 AM documented in this encounter Plan of Treatment Upcoming Encounters Date Type Department Care Team (Late st Contact Info) Description 10/21/2023 8:00 AM EST Anticoagulation Pharmacy, [facility] 200 [facility] [place] [address] Pharmacist1, [facility] [address] HUIZAR [facility] [place] [address] 12/23/2023 1:40 PM EDT Office Visit Endocrinology, [address] [address] Hetal Cali MD [address] [place] [address] [place] [address] 12/27/2023 8:40 AM EDT Office Visit General Internal Medicine [facility] [place] 200 [facility] [place] [address] Mario Mosquera MD 200 [facility] [place] [address] 02/27/2024 9:00 AM EDT Office Visit Cardiology, [facility] [place] 132 [facility] [place] [address] AriaNoel funes PA-C [address] [place] [address] 06/30/2024 9:40 AM EDT Office Visit Rheumatology [facility] [address] [place] [address] Damion Mulligan MD [address] [place] [address] Health Maintenance Due Date Last Done Comments *BISPHONATE OR OTHER ACCEPTABLE MEDICATION NEEDED FOR OSTEOPOROSIS (REFER TO SMARTSET #1146) 10/07/2022 Albumin/Creatinine Ratio 05/23/2023 05/23/2022 COVID-19 Vaccine ( season) 2023 06/29/2023, 06/29/2023, 06/11/2022, Additional history [...] D LEVEL ONCE IN A LIFETIME-USE SMARTSET# 73783 Completed 06/26/2023, 01/16/2023, 06/20/2022, Additional history exists [...] this encounter Medical Devices Implanted Type Area Operation Agent Device Identifier Shelf Expiration Date Model / Serial / Lot Lens 24.0 Mx60 - [id number] - [id number] Implanted:Qty: 1 on 01/30/2018 by Russell Alaniz MD at OR [facility] Left: Eye BAUSCH & LOMB : SURGICAL 07/09/2020 MX60-24.0 / [id number] / [id number] Envista Hydrophobic Acrylic Intraoular Lens Implanted:Qty: 1 on 02/11/2018 by Russell Alaniz MD at OR [facility] Right: Eye BAUSCH & LOMB 08/08/2020 [id number] / [id number] / [id number] documented as of this encounter Procedures Procedure Name Priority Date/Time Associated Diagnosis Comments INR FINGERSTICK, POINT OF CARE STAT 09/05/2023 7:57 AM EST PAF (paroxysmal atrial fibrillation) (HCC) Lupus anticoagulant disorder (HCC) Anticoagulation management encounter 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 documented in this encounter Results * INR FINGERSTICK, POINT OF CARE (09/05/2023 7:57 AM EST) Fingerstick INR 2.9 INR 8:01 AM EST [facility] [place] 56-02 Blood 09/05/2023 7:57 AM EST 09/05/2023 8:01 AM EST Narrative [facility] [place] 56-02 - 09/05/2023 8:01 AM EST Therapeutic ranges for non-operative patients: Prophylaxsis/treatment of DVT: (Range:2.0-3.0) Treatment of pulmonary embolism:(Range:2.0-3.0) Prevention of systemic embolism from: -tissue heart valves -acute myocardial infarction -valvular heart disease -atrial fibrillation (Range: 2.0-3.0) Mechanical prosthetic valves: (Range: 2.5-3.5) Anthony Cruz RPh LAB POINT OF CARE TE ST DOCKED DEVICE UNSOLICITED RESULTS [facility] 56-02 200 [facility] [place] [address] documented in this encounter Visit Diagnoses Diagnosis PAF (paroxysmal atrial fibrillation) (HCC)- Primary Atrial fibrillation Lupus anticoagulant disorder (HCC) Primary hypercoagulable state Anticoagulation management encounter Encounter for therapeutic drug monitoring [facility] current use of anticoagulant therapy documented in this encounter Advance Directives Latest Code Status [...] and were consensually agreed upon. Care Teams Shop Welder Relationship Specialty Start Date End Date Mario Mosquera MD [address] [facility] [address] PCP - General Internal Medicine 11/09/13 documented as of this encounter"
--- OUTSIDE RECORDS SUMMARY | 2023-10-04 05:22 | External Medical Summary | Summary of Care ---
Author Name Unknown Organization [facility] Address [address] [place] [address] Phone [phone] Care Team Providers Care Cold Storage Worker Name Role Phone Mario Mosquera MD Primary Care Provider + Reason for Visit * Reason Onset Date Comments Medication Refill 09/03/2023 Encounter Details Date Type Department Care Team (Late st Contact Info) Description 09/03/2023 Refill Cardiology, [facility] [address] [place] [address] Mario Mosquera MD [address] [place] [address] PAF (paroxysmal atrial fibrillation) (HCC) Allergies No known active allergiesdocumented as of this encounter (statuses as of 09/03/2023) Medications Medication Sig Dispensed Refills Start Date End Date Status ASPIRIN 81 MG PO TABS one daily 0 Active B Complex Vitamins (B COMPLEX 50) TBCR Take by mouth. 0 05/29/2017 A ctive Cyanocobalamin (B-12) 5000 MCG CAPS Take by mouth. 0 Active One-A-Day Mens 50+ Oral Tablet Take 1 Tab by mouth daily. 0 Active Famotidine 20 MG Oral Tablet (Pepcid) Take 1 Tablet by mouth in the morning and 1 Tablet before bedtime. 0 06/06/2021 Active Nitroglycerin 0.4 MG Sublingual Tablet Sublingual (Nitrostat)Indicati ons:Chronic ischemic heart disease PLACE 1 TAB UNDER THE TONGUE EVERY 5 MINUTES NEEDED FOR PAIN, CHEST. 25 Tablet 11 02/27/2022 Active Acetaminophen ER 650 MG Oral Tablet Extended Release Take 1 Tablet by mouth every 8 hours as needed. 0 Active Isosorbide Mononitrate ER 120 MG Oral Tablet Extended Release 24 Hour (Imdur)Indications: Chronic ischemic heart disease TAKE 1 TABLET BY MOUTH EVERY DAY 90 Tablet 3 10/18/2022 Active Ezetimibe 10 MG Oral Tablet (Zetia)Indications: Dyslipidemia, goal LDL below 70 TAKE 1 TABLET BY MOUTH EVERY DAY 90 Tablet 3 10/18/2022 Active Esomeprazole Magnesium 40 MG Oral Capsule Delayed ReleaseIndications: GERD (gastroesophageal reflux disease) TAKE 1 CAPSULE BY [...] Active Rosuvastatin Calcium 40 MG Oral Tablet (Crestor)Indication s:Dyslipidemia, goal LDL below 70 TAKE 1 TABLET BY MOUTH EVERY DAY 90 Tablet 3 04/18/2023 Active Lisinopril 20 MG Oral Tablet (Prinivil) TAKE 1 TABLET BY MOUTH EVERY DAY IN THE MORNING 90 Tablet 1 07/12/2023 Active Warfarin Sodium 1 MG Oral Tablet (Coumadin)Indicatio ns:Lupus anticoagulant disorder (HCC),PAF (paroxysmal atrial fibrillation) (HCC) Take 1 tablet Mon, Wed, Th, Sat & Sat or as directed by coag clinic 75 Tablet 3 08/27/2023 Active Warfarin Sodium 5 MG Oral Tablet (Coumadin)Indicatio ns:PAF (paroxysmal atrial fibrillation) (HCC) TAKE 5MG (1 TABLET) TUES & SAT 2.5MG (1/2 TABLET) ALL OTHER DAYS BY MOUTH OR DIRECTED. 45 Tablet 3 09/03/2023 Active Warfarin Sodium 5 MG Oral Tablet (Coumadin)Indicatio ns:PAF (paroxysmal atrial fibrillation) (HCC) TAKE 5MG (1 TABLET) TUES & SAT 2.5MG (1/2 TABLET) ALL OTHER DAYS BY MOUTH OR DIRECTED. 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 Severe atherosclerotic plaque(s) in the descending aorta PAF (paroxysmal atrial fibrillation) 07/27/2016 High risk for fracture due to osteoporosis by DE XA scan 06/18/2016 Old [place] (myocardial infarction) 06/06/2012 Mixed hyperlipidemia 08/16/2009 Overview: [...] as of this encounter (statuses as of 09/03/2023) Resolved Problems Problem Noted Date Diagnosed Date [...] 06/18/2016 08/19/2017 Diastolic CHF 12/28/2015 11/03/2018 Acute [place] 05/30/2012 06/06/2012 Chronic ischemic heart disease 01/17/2007 12/25/2018 Pneumonia due to organism Overview: ICD-10 update of inactive term IDIO PERIPH NEURPTHY NOS 07/2018 PURE HYPERCHOLESTEROLEM 04/2009 Overview: Per Lipid Taxonomy. documented as of this encounter (statuses as of 09/03/2023) Immunizations Name Administration Dates Next Due COVID-19 mRNA, LNP-s, No Pre serve, 2-Dose Series ([email or web address]) 06/17/2021,11/18/2020,10/28/2020 COVID-19, LNP-s, No Preserve , Brennan-sucrose, Ages 12+ (emploi.us) 12/22/2021 Covid-19, Mrna, Lnp-s, Pf, B ivalent, 30 Mcg, IM, 12 yrs and above (emploi.us) 06/29/2023,06/11/2022 H1N1 2009 Influenza, IM 10/01/2009 Pneumococcal [...] encounter Miscellaneous Notes * Telephone Encounter - Judith Weber PA-C - 09/03/2023 1:11 PM ESTSigned Prescriptions: Disp Refills Warfarin Sodium 5 MG Oral Tablet (Coumadin)45 Tab*3 Sig: TAKE 5MG (1 TABLET) TUES & SAT 2.5MG (1/2 TABLET) ALL OTHER DAYS BY MOUTH OR DIRECTED. Authorizing Provider: JUDITH WEBER * Telephone Encounter - Nikolai Abraham RN - 09/03/2023 1:02 PM ESTPending Prescriptions: Disp Refills Warfarin Sodium 5 MG Oral Tablet (Coumadin)45 Tab*3 Sig: TAKE 5MG (1 TABLET) TUES & SAT 2.5MG (1/2 TABLET) ALL OTHER DAYS BY MOUTH OR DIRECTED. * Telephone Encounter - Nikolai Abraham RN - 09/03/2023 1:02 PM EST Pending Prescriptions: Disp Refills Warfarin Sodium 5 MG Oral Tablet (Coumadi*45 Tab*3 Sig: TAKE 5MG (1 TABLET) TUES & SAT 2.5MG (1/2 TABLET) ALL OTHER DAYS BY MOUTH OR DIRECTED. Last Visit: 08/22/2023 (in office), 01/08/2020 (telemedicine) Next Visit: 02/27/2024 Last medication order date: 04/16/2022 Have you choosen a preferred pharm?? 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 [facility] current use of anticoagulant therapy Z79.01 Lupus anticoagulant disorder ([facility]) D68.62 Parathyroid abnormality ([facility]) E21.5 THERESA (obstructive sleep apnea) G47.33 Diastolic dysfunction I51.89 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 Chronic kidney disease, stage 3 unspecified ([facility]) N18.30 Senile osteoporosis M81.0 Stenosis of right subclavian artery ([facility]) I77.1 Labs: Lab Results Component Value Date/Time CREATININE 1.0 08/05/1996 09:00 AM CREATININE - [facility] 0.9 06/26/2023 07:40 AM CREATININE - [facility] 1.1 05/09/2020 01:47 PM CREATININE, 24 HOUR URINE - [facility] 0.994 (L) 06/26/2022 07:48 AM CREATININE, 24 HR UR 159 06/26/2022 07:48 AM CREATININE, RANDOM URINE - [facility] 59 05/23/2022 11:16 AM CREATININE, RANDOM URINE - [facility] 55 04/29/2020 09:57 AM CREATININE-OUTSIDE LAB 1.11 06/06/2021 12:00 AM Lab Results Component Value Date/Time POTASSIUM 4.0 08/05/1996 09:00 AM POTASSIUM - [facility] 4.3 06/26/2023 07:40 AM POTASSIUM - [facility] 3.7 05/09/2020 01:47 PM POTASSIUM-OUTSIDE LAB 3.8 06/06/2021 12:00 AM Lab Results Component Value Date/Time TSH - [facility] 1.97 05/23/2022 11:16 AM TSH - [facility] 2.04 01/06/2020 09:22 AM Lab Results Component Value Date/Time LDL CHOLESTEROL (CALCULATED) - [facility] 64 06/26/2023 07:40 AM LDL CHOLESTEROL (CALCULATED) - [facility] 61 05/23/2022 11:16 AM LDL CHOLESTEROL (CALCULATED) - [facility] 76 12/31/2019 08:28 AM LDL CHOLESTEROL (CALCULATED) - [facility] UNINTERPRETABLE RESULT 10/20/2018 08:37 AM LDL CHOLESTEROL (DIRECT MEASURE) - [facility] 81 08/19/2020 09:04 AM LDL CHOLESTEROL (DIRECT MEASURE) - [facility] NOT APPLICABLE 12/31/2019 08:28 AM LDL CHOLESTEROL (DIRECT MEASURE) - [facility] 89 03/31/2010 08:45 AM LDL CHOLESTEROL (DIRECT MEASURE) - [facility] 114 02/22/2006 08:15 PM Lab Results Component Value Date/Time ALT 31 08/05/1996 09:00 AM ALT - [facility] 27 06/26/2023 07:40 AM ALT - [facility] 19 08/19/2020 09:04 AM ALT-OUTSIDE LAB 21 10/10/2016 12:00 AM Hemoglobin AIC Results: Lab Results Component Value Date/Time HEMOGLOBIN A1C - [facility] 5.6 05/23/2022 11:16 AM HEMOGLOBIN A1C - [facility] 6.0 (H) 04/26/2021 10:18 AM HEMOGLOBIN A1C - [facility] 6.0 (H) 10/24/2020 08:39 AM HEMOGLOBIN A1C - [facility] 6.2 (H) 01/06/2020 09:22 AM documented in this encounter Plan of Treatment Upcoming Encounters Date Type Department Care Team (Late st Contact Info) Description 09/05/2023 8:00 AM EST [facility] [place] [address] [facility] [place] [address] Pharmacist1, [facility] [address] [place] [address] 12/23/2023 1:40 PM EDT Office Visit Endocrinology, [place] [address] [place] [address] Hetal Cali MD [address] [place] [address] 12/27/2023 8:40 AM EDT Office Visit General Internal [facility] [place] [address] [place] [address] Mario Mosquera MD 200 [facility] [place] [address] 02/27/2024 9:00 AM EDT Office Visit Cardiology, [facility] [address] [place] [address] Noel Knapp PA-C [address] [place] [address] 06/30/2024 9:40 AM EDT Office Visit Rheumatology [facility] [address] [place] [address] Damion Mulligan MD [address] [place] [address] Health Maintenance Due Date Last Done Comments [...] D LEVEL ONCE IN A LIFETIME-USE SMARTSET# [id number] Completed 06/26/2023, 01/16/2023, 06/20/2022, Additional history exists [...] this encounter Medical Devices Implanted Type Area Radiologic Technology Teacher Device Identifier Shelf Expiration Date Model / Serial / Lot Lens 24.0 Mx60 - [id number] - [id number] Implanted:Qty: 1 on 01/30/2018 by Russell Alaniz MD at OR [facility] Left: Eye BAUSCH & LOMB : SURGICAL 07/09/2020 MX60-24.0 / [id number] / [id number] Envista Hydrophobic Acrylic Intraoular Lens Implanted:Qty: 1 on 02/11/2018 by Russell Alaniz MD at OR [facility] Right: Eye BAUSCH [employer] LOMB 08/08/2020 [id number] / [id number] / [id number] documented as of this encounter Visit Diagnoses Diagnosis PAF (paroxysmal atrial fibrillation) (HCC) Atrial fibrillation documented in this encounter Advance Directives Latest [...] and were consensually agreed upon. Care Teams Cold Storage Worker Relationship Specialty Start Date End Date Mario Mosquera MD 200 [place] [address] PCP - General Internal Medicine 11/09/13 documented as of this encounter
--- OUTSIDE RECORDS SUMMARY | 2023-10-04 05:22 | External Medical Summary | Summary of Care ---
Author Name Unknown Organization [facility] Address [address] [place] [address] Phone [phone] Care Team Providers Care Recreation Worker Name Role Phone Mario Mosquera MD Primary Care Provider + Reason for Visit * Reason Comments Rheum Follow Up [facility] Encounter Details Date Type Department Care Team Description 06/26/2023 Office Visit Rheumatology [address] [place] [address] Damion Mulligan MD [facility] [place] [address] Senile osteoporosis* Allergies No known active allergiesdocumented as of this encounter (statuses as of 06/26/2023) Medications Medication Sig Dispensed Refills Start Date [...] PAIN, CHEST. 25 Tablet 11 02/27/2022 Active Warfarin Sodium 5 MG Oral Tablet (Coumadin)Indications :PAF (paroxysmal atrial fibrillation) (HCC) TAKE 5MG (1 TABLET) TUES & SAT 2.5MG (1/2 TABLET) ALL OTHER DAYS BY MOUTH OR DIRECTED. 45 Tablet 3 04/16/2022 Active Lisinopril 20 MG Oral Tablet (Prinivil) Take 1 Tablet (20 mg) by mouth in the morning. 90 Tablet 3 07/15/2022 Active Acetaminophen ER 650 MG Oral Tablet [...] mouth daily. 90 Tablet 3 01/02/2023 Active Warfarin Sodium 1 MG Oral Tablet (Coumadin)Indications :Lupus anticoagulant disorder (HCC),PAF (paroxysmal atrial fibrillation) (HCC) Take 1 tablet Mon, Wed, Fri & Sat or as directed by [facility] clinic 55 Tablet 3 02/11/2023 Active Rosuvastatin Calcium 40 MG Oral Tablet (Crestor)Indications: Dyslipidemia, goal LDL below 70 TAKE 1 TABLET BY MOUTH EVERY DAY 90 Tablet 3 04/18/2023 Active documented as of this encounter (statuses as of 06/26/2023) Active Problems Problem Noted Date Stenosis of right subclavian artery 11/07 Senile osteoporosis 08/30/2021 Chronic kidney disease, stage 3 unspecif ied 10/24/2020 Diastolic dysfunction 11/03/2018 THERESA (obstructive sleep apnea) 11/20/2017 Parathyroid abnormality 08/19/2017 Lupus anticoagulant disorder 10/17/2016 group home current use of anticoagulant t herapy 10/01/2016 Overview: ICD-10 update of inactive term 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 Severe atherosclerotic plaque(s) in the descending aorta PAF (paroxysmal atrial fibrillation) High risk for fracture due to osteoporos is by DEXA scan 06/18/2016 Old NM (myocardial infarction) 2 Mixed hyperlipidemia 08/16/2009 Overview: Per Lipid Taxonomy. [...] as of this encounter (statuses as of 06/26/2023) Resolved Problems Problem Noted Date Resolved Date Chronic kidney disease, stage 3 unspecified 10/1001/19/2021 Adverse reaction to DAYSI inhibitor drug 0 06/14/2023 Overview: AMY with salmonella posioning as well Pre-diabetes 01/07/2020 07/26/2022 Other atherosclerosis of bere tj arteries of extremities, bilateral legs 03/09/2019 10/31/2021 Chronic diastolic congestive heart failure 12/2512/25/2018 Infarction of kidney 12/18/2017 12/25/2018 Altered mental status 09/12/2017 10/08/2017 Other neutropenia 08/19/2017 12/31/2019 Altered mental status 06/11/2017 08/19/2017 Cervicogenic headache 01/28/2017 11/28/2022 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 Severe atherosclerotic plaque(s) in the descending aorta Osteoporosis 06/18/2016 08/19/2017 Diastolic CHF 12/28/2015 11/03/2018 Acute NM 05/30/2012 06/06/2012 Chronic ischemic heart disease 01/17/2007 0 12/25/2018 Pneumonia due to organism 2013 Overview: ICD-10 update of inactive term IDIO PERIPH NEURPTHY NOS 018 PURE HYPERCHOLESTEROLEM 08/16/20 09 Overview: Per Lipid Taxonomy. documented as of this encounter (statuses as of 06/26/2023) Immunizations Name Administration Dates Next Due COVID-19 mRNA, LNP-s, No Pre serve, 2-Dose Series (LurnQ) 06/17/2021,11/18/2020,10/28/2020 COVID-19, LNP-s, No Preserve , Brennan-sucrose, Ages 12+ (LurnQ) 12/22/2021 Covid-19, Mrna, Lnp-s, Pf, B ivalent, 30 Mcg, IM, 12 yrs and above (LurnQ) 06/11/2022 H1N1 2009 Influenza, IM 10/01/2009 Pneumococcal Conjugate Vacc, 13 Valent (Prevnar) 11/08/2015 Pneumococcal Conjugate Vaccine, 7 Valent 010 Pneumococcal Polysaccharide PPV23 (Pneumovax) 12/23/2013 SEASONAL INFLUENZA, PF, 6 M & Above, IM , (FLULAVAL or FLUZONE) 06/03/2020,06/19/2018 Seasonal Influenza, Quadriva lent Hd (Fluzone [...] 09/24/2005 Smokeless Tobacco: Never Chew Quit: 02/14/2006 Tobacco Cessation:Counseling Given: Not Answered Alcohol Use Standard Drinks/Week Comments Yes 8.3 (1 standard drink = 0.6 oz p ure alcohol) about 2 drinks daily Food Insecurity Answer Date Recorded Within the past 12 months, y ou worried that your food would run out before you got money to buy more. Never true 11/28/2022 Within the past 12 months, t he food you bought just didn't last and you didn't have money to get more. Never true 11/28/2022 Sex Assigned at Date Recorded Male 12/25/2018 11:44 AM EDT Job Start Date Occupation Industry Not on file Not on file Not on file documented as of this encounter Last Filed Vital Signs Vital Sign Reading Time Taken Comments Blood Pressure 128/62 06/26/2023 10:05 AM EDT Pulse - - Temperature 36.3 C (97.3 F) 06/26/2023 10:05 AM E DT Respiratory Rate - - Oxygen Saturation - - Inhaled Oxygen Concentration - - Weight 64 kg (141 lb) 06/26/2023 10:05 AM EDT Height - - Body Mass Index 23.46 12/19/2022 12:30 PM EDT documented in this encounter Progress Notes * Damion Mulligan MD - 06/26/2023 10:08 AM EDT [facility] ([facility]): follow up Previous Visit Plan from 08/2022 reviewed. Reason for visit: Patient seen today for further follow-up/evaluation of osteoporosis. He had one dose of IV reclast. Had dexa today. Can not compared to previous study as the DEXA machine was recently upgraded. No falls no fractures. Uses a cane at times. Does eat a calcium rich foods. Is on vitamin-D supplements. Had blood work today that is pending. Bone Health Summary: Risks: Falls since last [facility] visit: no Personal History of Fx since last [facility] Visit: no Prevention: Exercise : 3 or more times weekly: Yes Nutrition: eats calcium rich foods, Yes Gait: unsteady with walking, No, use of cane/walker, yes cane at times Calcium and Vitamin D supplements in adequate doses: Yes ROS: . Constitutional: normal . Ears, nose, throat, mouth: normal . Cardiovascular: normal . Respiratory: normal . Gastrointestinal: normal . Musculoskeletal: normal . Genitourinary: normal Medications: Current Outpatient Medications Medication Sig Dispense Refill ASPIRIN 81 MG PO TABS one daily B Complex Vitamins (B COMPLEX 50) TBCR Take by mouth. Cyanocobalamin (B-12) 5000 MCG CAPS Take by mouth. One-A-Day Mens 50+ Oral Tablet Take 1 Tab by mouth daily. Famotidine 20 MG Oral Tablet (Pepcid) Take 1 Tablet by mouth in the morning and 1 Tablet before bedtime. Nitroglycerin 0.4 MG Sublingual Tablet Sublingual (Nitrostat) PLACE 1 TAB UNDER THE TONGUE EVERY 5 MINUTES NEEDED FOR PAIN, CHEST. 25 Tablet 11 Warfarin Sodium 5 MG Oral Tablet (Coumadin) TAKE 5MG (1 TABLET) TUES & SAT 2.5MG (1/2 TABLET) ALL OTHER DAYS BY MOUTH OR DIRECTED. 45 Tablet 3 Lisinopril 20 MG Oral Tablet (Prinivil) Take 1 Tablet (20 mg) by mouth in the morning. 90 Tablet 3 Acetaminophen ER 650 MG Oral Tablet Extended Release Take 1 Tablet by mouth every 8 hours as needed. Isosorbide Mononitrate ER 120 MG Oral Tablet Extended Release 24 Hour (Imdur) TAKE 1 TABLET BY MOUTH EVERY DAY 90 Tablet 3 Ezetimibe 10 MG Oral Tablet (Zetia) TAKE 1 TABLET BY MOUTH EVERY DAY 90 Tablet 3 Esomeprazole Magnesium 40 MG Oral Capsule Delayed Release TAKE 1 CAPSULE BY MOUTH EVERY DAY 90 Capsule 3 Metoprolol Succinate ER 50 MG Oral Tablet Extended Release 24 Hour (toPROL XL) TAKE 1 AND 1/2 TABLETS DAILY BY MOUTH 135 Tablet 3 amLODIPine Besylate 5 MG Oral Tablet (Norvasc) Take 1 Tablet by mouth daily. 90 Tablet 3 Warfarin Sodium 1 MG Oral Tablet (Coumadin) Take 1 tablet Mon, Wed, Fri & Sat [facility] Tablet 3 Rosuvastatin Calcium 40 MG Oral Tablet (Crestor) TAKE 1 TABLET BY MOUTH EVERY DAY 90 Tablet 3 No current facility-administered medications for this visit. Social History: Social History Tobacco Use Smoking status: Former Packs/day: 0.50 Years: 55.00 Pack years: 27.50 Types: Cigarettes Quit date: 09/24/2005 Years since quittin.7 Smokeless tobacco: Never Vaping Use Vaping Use: Never used Substance Use Topics Alcohol use: Yes Alcohol/week: 8.3 standard drinks Types: 10 12 oz of beer per week Comment: about 2 drinks daily Drug use: No Physical Exam: BP 128/62 | Temp 36.3 C (97.3 F) | Wt 64 kg (141 lb) | BMI 23.46 kg/m | BSA 1.71 m General: alert, healthy, no distress, and well nourished Heart: regular rate & rhythm and no gallops Lungs: clear to auscultation no rales, wheezes or rhonchi Abdomen: Soft, nontender, nondistended Musculoskeletal Exam: Normal muscle strength Thoracic kyphosis noted Assessment: M81.0 Senile osteoporosis (primary encounter diagnosis) 77 year old male with osteoporosis who is due for IV Reclast. Once labs are back will get set up. Plan: The following items are ordered or are in progress: 1. Education: Osteoporosis education was provided by the [facility] team (topics included disease process, DXA, calcium/vitamin D, osteoporosis medications - including administration instructions and risks/benefits, weight bearing exercise, fall prevention/safety). 2. Prevention: . Fall Prevention/Safety Education recommended and discussed . Continue calcium rich foods (goal of 3 servings daily) 3. Osteoporosis Medications : Continue 5mg Reclast IV once yearly 4. Bone Density Testing: due 2 year(s) from previous 5. Laboratory: None needed 6. Followup: Return to [facility] clinic in 1 year Damion Mulligan MD [facility] Team documented in this encounter Nursing Notes * Lary Hayes LPN - 06/26/2023 10:07 AM EDT Chief Complaint Patient presents with Rheum Follow Up [facility] documented in this encounter Plan of Treatment Upcoming Encounters Date Type Specialty Care Team Description 07/26/2023 Anticoagulation Pharmacy Pharmacist1, [facility] [address] [place] [address] 08/22/2023 Office Visit Cardiology Noel Knapp PA-C [address] [place] [address] 12/23/2023 Office Visit Endocrinology Hetal Cali MD [address] [place] [address] 12/27/2023 Office Visit Internal Medicine Mario Mosquera MD [address] [place] [address] 06/30/2024 Office Visit Rheumatology Damion Mulligan MD [address] [place] [address] [place] [address] Health Maintenance Due Date Last Done Comments *BISPHONATE OR OTHER ACCEPTABLE MEDICATION NEEDED FOR OSTEOPOROSIS (REFER TO SMARTSET #1146) 10/07/2022 COVID-19 Vaccine ( season) 2023 06/11/2022, 12/22/2021, 06/17/2021, Additional history exists DXA Scan 06/12/2023 06/12/2021, 03/09, 06/18/2016 DTaP,Tdap,and Td Vaccines (3 - Td or Tdap) 11/17/2023 11/16/2013, 01/07/1994 Depression Screening 06/14/2024 06/14/2023, 05/10/20 15 GFR 06/26/2024 06/26/2023, 01/07, 07/13/2022, Additional history exists Albumin/Creatinine Ratio 05/23/2025 05/23/2022 Pneumococcal Vaccine: 65+ Years Completed 11/08/2015, 12/23/2013 Zoster Vaccines Completed 02/19/2020, 04/2020, 05/22/2012 COLONOSCOPY-EVERY 5 YRS AGES 18-100 Discontinued 11/07/2021, 11/07/2021, 09/07/2015, Additional history exists VITAMIN D LEVEL ONCE IN A LIFETIME-USE SMARTSET# 87614 Completed 01/16/2023, 06/20/2022, 05/23/2022, Additional history exists Influenza Vaccine (FLU shot) Completed 06/14/2023, 05/22/2022, 05/24/2021, Additional history exists GARDASIL-HPV IMMUNIZATION SERIES Aged Out No longer eligible based on patient's age to complete this topic Hepatitis B Aged Out No longer eligi ble based on patient's age to complete this topic MENINGOCOCCAL (MENACTRA/MENVEO) Aged Out No longer eligible based on patient's age to complete this topic documented as of this encounter Medical Devices Implanted Type Area [employer] Service Technician Device Identifier Shelf Expiration Date Model / Serial / Lot Lens 24.0 Mx60 - [id number] - [id number] Implanted:Qty: 1 on 01/30/2018 by Russell Alaniz MD at [facility] Left: Eye [employer] : SURGICAL 07/09/2020 MX60-24.0 / [id number] / [id number] Envista Hydrophobic Acrylic Intraoular Lens Implanted:Qty: 1 on 02/11/2018 by Russell Alaniz MD at OR [facility] Right: Eye [employer] 08/08/2020 [id number] / [id number] / [id number] documented as of this encounter Visit Diagnoses Diagnosis Senile osteoporosis- Primary documented in this encounter Advance Directives Latest [...] and were consensually agreed upon. Care Teams Recreation Worker Relationship Specialty Start Date End Date Mario Mosquera MD [address] [place] [address], [place] [address] PCP - General Internal Medicine 11/09/13 documented as of this encounter"
--- OUTSIDE RECORDS SUMMARY | 2023-10-04 05:22 | External Medical Summary | Summary of Care ---
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 Severe atherosclerotic plaque(s) in the descending aorta PAF (paroxysmal atrial fibrillation) 07/27/2016 High risk for fracture due to osteoporosis by DE XA scan 06/18/2016 Old AL (myocardial infarction) 06/06/2012 Mixed hyperlipidemia 08/16/2009 Overview: [...] as of this encounter (statuses as of 08/23/2023) Resolved Problems Problem Noted Date Diagnosed Date [...] 06/18/2016 08/19/2017 Diastolic CHF 12/28/2015 11/03/2018 Acute AL 05/30/2012 06/06/2012 Chronic ischemic heart disease 01/17/2007 12/25/2018 Pneumonia due to organism Overview: ICD-10 update of inactive term IDIO PERIPH NEURPTHY NOS 07/2018 PURE HYPERCHOLESTEROLEM 04/2009 Overview: Per Lipid Taxonomy. documented as of this encounter (statuses as of 08/23/2023) Immunizations Name Administration Dates Next Due COVID-19 mRNA, LNP-s, No Pre serve, 2-Dose Series ([employer]) 06/17/2021,11/18/2020,10/28/2020 COVID-19, LNP-s, No Preserve , Brennan-sucrose, Ages 12+ ([employer]) 12/22/2021 Covid-19, Mrna, Lnp-s, Pf, B ivalent, 30 Mcg, IM, 12 yrs and above ([employer]) 06/29/2023,06/11/2022 H1N1 2009 Influenza, IM 10/01/2009 Pneumococcal [...] Sign Reading Time Taken Comments Blood Pressure 130/62 08/22/2023 8:21 AM EST Pulse 56 08/22/2023 8:21 AM EST Temperature - - Respiratory Rate 14 08/22/2023 8:21 AM EST Oxygen Saturation - - Inhaled Oxygen Concentration - - Weight 65.3 kg (144 lb) 08/22/2023 8:21 AM EST Height - - Body Mass Index 23.96 12/19/2022 12:30 PM EDT documented in this encounter Progress Notes * Noel Knapp PA-C - 08/22/2023 8:30 AM EST History of Present Illness: Andrew Reardon is a very pleasant 78 year old male who returns today for routine cardiology follow-up evaluation. Accompanied by his . Feeling pretty good. notesthat he complains about being tired in the evenings. He notes waking up at 3:00 a.m. in the morningusually and is not particularly interested in further evaluation of the fatigue. No chest pain. No sublingual nitroglycerin use. No palpitations. Stable exertional dyspnea. No resting dyspnea. No orthopnea or PND. No peripheral edema. No abrupt weight change. No headaches. No dizziness or syncope.No unilateral complaints to suggest TIA/CVA. No significant epistaxis, hemoptysis, melena, hematochezia, or hematuria. Nocturia times 1 to 2. Leg cramps have been quiescent. Past Medical/Surgical History: ASCVD December 13, 2009 NSTEMI. December 2009 coronary angiography with branch vessel coronary disease, 80% narrowing of a sub branch of the LAD with moderate irregularities of other vessels. May 2012 acute anterolateral myocardial infarction secondary to a total occlusion of the LAD diagonal artery status post POBA by Dr. Maier. Residual total occlusion of a posterior branch of the diagonal noted with prior catheterization showing that this vessel was very small in caliber. Additional angiography showed mild, nonobstructive coronary disease with no lesion over 30%. There was moderate LV systolic dysfunction with an LVEF of 40-45% at that time. Severe atherosclerotic plaque(s) in the aortic arch and descending aorta. Left renal and splenic infarctions, July 2016. Right occipital and left cerebellar infarcts. Lupus anticoagulant disorder Hypertension Dyslipidemia with an optimal LDL goal of < 70 mg/dL. Bilateral internal carotid disease without infarction Right subclavian artery stenosis COPD with past tobacco abuse Reflux esophagitis Parathyroid abnormality, followed by [facility] Endocrinology Osteoarthritis Avascular necrosis of the hips. Left rotator cuff tear and possible avascular necrosis, adhesive capsulitis. Idiopathic peripheral neuropathy Chronic alcohol use/abuse Cervicogenic headaches Diverticulosis/diverticulitis Family History: Mother at 83 with an AL. Father at 79 after multiple AL's, CABG surgery, and BiV pacer implantation. Social History: Prior smoker having smoked from the age of 15 to 61. Previously chewed a can/day until the age of 61. with two grown boys, both without cardiac problems. Enjoys hunting, including rattle snakes, fishing, etc. Complete Review of Systems is as stated above, negative, or noncontributory. Review of patient's allergies indicates: No Known Allergies Current Outpatient Medications Medication Sig Dispense Refill [...] BY MOUTH OR DIRECTED. 45 Tablet 3 Acetaminophen ER 650 MG Oral [...] Wed, Fri & Sat [facility] Tablet 3 Rosuvastatin Calcium 40 MG Oral Tablet (Crestor) TAKE 1 TABLET BY MOUTH EVERY DAY 90 Tablet 3 Lisinopril 20 MG Oral Tablet (Prinivil) TAKE 1 TABLET BY MOUTH EVERY DAY IN THE MORNING 90 Tablet 1 No current facility-administered medications for this visit. OBJECTIVE/PHYSICAL EXAMINATION: BP 130/62 | Pulse 56 | Resp 14 | Wt 65.3 kg (144 lb) | BMI 23.96 kg/m | BSA 1.73 m General: NAD. HENT: Normocephalic. Eyes: PER. Conjunctiva pink, sclera clear. Neck: Bilateral carotid bruits. No JVD. Heart: RRR, 60 bpm. Grade II/ systolic ejection murmur. Lungs: Decreased breath sounds throughout all lung coyne. No abnormal breath sounds appreciated. Abdomen: +BS. Soft. Nontender. No masses or organomegaly. Extremities: No edema. No clubbing. No cyanosis. Limited neurological examination is without focal deficit. Normal affect. Pulses: radial=2/4, posterior tibial=2/4. Data: May 17, 2016 Exercise TEJAL: TEJAL at rest is 1.1 on the right and 1.2 on the left. TEJAL following exercise is 1.2 on the right and 1.2 on the left. Waveform analysis and treadmill data are normal for the bilateral lower extremity with no evidence of significant peripheral arterial occlusive disease. January 2021 Zio Monitor (while on metoprolol 75 mg/day): Patient had a min HR of 43 bpm, max HR of 138bpm, and avg HR of 58 bpm. Predominant underlying rhythm was Sinus Rhythm. First Degree AV Block was present. 1 run of Ventricular Tachycardia occurred lasting 4 beats with a max rate of 125 bpm (sbw622 bpm). 11 Supraventricular Tachycardia runs occurred, the run with the fastest interval lasting 11 beats with a max rate of 138 bpm, the longest lasting 17.6 secs with an avg rate of 93 bpm. Isolated SVEs were rare (<1.0%), SVE Couplets were rare (<1.0%), and SVE Triplets were rare (<1.0%). Isolated VEs were occasional (1.2%, 612[address]), VE Couplets were rare (<1.0%, 144), and no VE Triplets were present. Ventricular Bigeminy and Trigeminy were present. The patient used to event marke rs and 2 diary entries which correlated with sensed ventricular ectopy. August 01, 2021 Lexiscan Interpretation Summary (as per Dr. Temple): Lexiscan nuclear stress test demonstrates myocardial scar involving the mid and apical anterior wall, apical lateral wall, andbase lateral wall. There is moderate bruce-infarct ischemia involving the apical lateral wall and apex. Ischemic burden involves 10% of the myocardium per quantitative analysis. Abnormal gated SPECT imaging demonstrating apical hypokinesis to akinesis. The calculated stress ejection fraction is 66%.Normal TID index. Compared to prior stress test dated November 28, 2018, bruce-infarct ischemia now present EKG on 08/22/2023 personally reviewed, revealed sinus bradycardia at 59 bpm with a first-degree AV block and premature atrial complexes. Possible old septal infarct. QTc 415 ms. When compared to the most recent available EKG, PACs are now present, otherwise, no significant change. ASSESSMENT AND RECOMMENDATIONS/PLAN: ASCVD. Stress testing in July 2021 revealed moderate bruce-infarct ischemia, ischemic burden 10%. Stable symptoms, asymptomatic. Recommend conservative medical management noting the severe atherosclerotic plaques in the aorta. Continue current therapies as presently prescribed. Severe atherosclerotic plaque(s) in the aortic arch and descending aorta. Continue aspirin, statin,and anticoagulation. Hypertension. Well controlled following titration of amlodipine at last visit. Continue the currentantihypertensive regimen as presently prescribed. Dyslipidemia with an optimal LDL goal of < 70 mg/dL. LDL cholesterol 64 mg/dL on 06/26/2023. Continue rosuvastatin 40 mg/day and ezetimibe 10 mg/day. Internal carotid artery disease. Duplex in November 2022 revealed stable mild bilateral internal carotid artery disease. + Right subclavian artery stenosis. All blood pressures to be obtained via the left arm for accuracy. Continue appropriate medical management. Palpitations. Documented to occur in association with sensed ventricular ectopy. General measures discussed. Continue beta-harley therapy as prescribed. Chronic intermittent nocturnal leg cramps. Quiescent. Hydration encouraged. Fatigue. Mentioned by . Patient not concerned. Thyroid testing and nocturnal pulse oximetry deferred by the patient today. Cardiology follow-up 6 months or as needed. ER with emergencies. Noel Knapp PA-C Department of Cardiology documented in this encounter Nursing Notes * Alice Hoang LPN - 08/22/2023 8:20 AM EST Examination Room: 3 Name: Andrew Reardon Date of : 1945 Reason for Visit: Follow up Problems/Concerns: denies Interim Hosp(s): denies Chest Pain/SOB: denies MyChart Discussed: ALREADY ACTIVE Patient was instructed to not get up on the exam table until directed and assisted by their provider; patient is to remain seated in the chair/ wheelchair/ exam table for fall prevention and safety reasons. Patient is aware staff will assist stepping down off exam table with personnel. documented in this encounter Plan of Treatment Upcoming Encounters Date Type Department Care Team (Late st Contact Info) Description 09/05/2023 8:00 AM EST Anticoagulation Pharmacy, [facility] [place] [address] [facility] [place] [address] Pharmacist1, [facility] [address] [place] [address] 12/23/2023 1:40 PM EDT Office Visit Endocrinology, [place] [address] [place], [place] [id number] Hetal Cali MD [address] [place] [address] [place] [id number] 12/27/2023 8:40 AM EDT Office Visit General Internal Medicine [facility] [address] [facility] [place] [address] Mario Mosquera MD [address] [facility] [place] [address] 02/27/2024 9:00 AM EDT Office Visit Cardiology, [facility] [address] [facility] [place] [address] Noel Knapp PA-C [address] [place] [address] 06/30/2024 9:40 AM EDT Office Visit Rheumatology [facility] [address] [place] [address] Damion Mluligan MD [address] [facility] [place] [address] Health Maintenance Due Date Last Done Comments *BISPHONATE OR OTHER ACCEPTABLE MEDICATION NEEDED FOR OSTEOPOROSIS (REFER TO SMARTSET #1146) 10/07/2022 Albumin/Creatinine Ratio 05/23/2023 05/23/2022 COVID-19 Vaccine (2022- season) 2023 06/29/2023, 06/29/2023, 06/11/2022, Additional history [...] D LEVEL ONCE IN A LIFETIME-USE SMARTSET# 79753 Completed 06/26/2023, 01/16/2023, 06/20/2022, Additional history exists [...] this encounter Medical Devices Implanted Type Area Ring Cutter Lathe Operator Device Identifier Shelf Expiration Date Model / Serial / Lot Lens 24.0 Mx60 - [id number] - [id number] Implanted:Qty: 1 on 01/30/2018 by Russell Alaniz MD at OR [facility] Left: Eye [employer] : SURGICAL 07/09/2020 MX60-24.0 / [id number] / [id number] [employer] Hydrophobic Acrylic Intraoular Lens Implanted:Qty: 1 on 02/11/2018 by Russell Alaniz MD at OR [facility] Right: Eye [employer] 08/08/2020 [id number] / [id number] / [id number] documented as of this encounter Results * EKG (08/22/2023 8:28 AM EST) 08/22/2023 8:28 AM EST Narrative Procedure Note Virgilio Wen, DO - 08/22/2023 8:28 AM EST REASON FOR STUDY: annual CONCLUSIONS: Sinus bradycardia with 1st degree AV block with Premature atrialcomplexes Septal infarct (cited on or before 02-JUL-2022) Abnormal ECG When compared with ECG of 02-JUL-2022 07:51, Premature atrial complexes are now Present Ventricular Rate: 59 Atrial Rate: 59 CA Interval: 226 QRS Duration: 86 QT/QTc: 420/415 ms P-R-T [place]: 88 : 38 : 96 degrees Noel Knapp PA-C EKG Performing Organization Address City/State/ZIP Co sd Phone Number [facility] documented in this encounter Visit Diagnoses Diagnosis Coronary artery disease involving [place] heart with angina pectoris, unspecified vessel or lesion type (HCC)- Primary Dyslipidemia, goal LDL below 70 Other and unspecified hyperlipidemia HTN, goal below 140/90 Unspecified essential hypertension PAF (paroxysmal atrial fibrillation) (HCC) Atrial fibrillation Old AL (myocardial infarction) Old myocardial infarction 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 Care Teams Commercial Banker Relationship Specialty Start Date End Date Mario Mosquera MD [address] [place] [address], [place] [address] PCP - General Internal Medicine 11/09/13 documented as of this encounter"
--- OUTSIDE RECORDS SUMMARY | 2023-10-04 05:22 | External Medical Summary | Summary of Care ---
Author Name Unknown Organization [facility] Address [address] [place] [address] Phone [phone] Care Team Providers Care Flat Bed Knitter Name Role Phone Mario Perez MD Primary Care Provider + Reason for Visit * Reason Onset Date Comments Medication Refill 08/27/2023 Encounter Details Date Type Department Care Team (Late st Contact Info) Description 08/27/2023 Refill Pharmacy, [facility] [address] [facility] [place] [address] Mario Perez MD [address] [place] [address] Lupus anticoagulant disorder ([facility]); PAF (paroxysmal atrial fibrillation) ([facility]) Allergies No known active allergiesdocumented as of this encounter (statuses as of 08/27/2023) Medications Medication Sig Dispensed Refills Start Date [...] Active Warfarin Sodium 5 MG Oral Tablet (Coumadin)Juan Josetio ns:PAF (paroxysmal atrial fibrillation) (HCC) TAKE 5MG [...] Active Warfarin Sodium 1 MG Oral Tablet (Coumadin)Juan Josetio ns:Lupus anticoagulant disorder (HCC),PAF (paroxysmal atrial fibrillation) (HCC) Take 1 tablet Mon, Wed, Thur, Fri & Sat or as directed by coag clinic 75 Tablet 3 08/27/2023 Active Warfarin Sodium 1 MG Oral Tablet (Coumadin)Indicatio ns:Lupus anticoagulant disorder (HCC),PAF (paroxysmal atrial fibrillation) (HCC) Take 1 tablet Mon, Wed, Fri & Sat or as directed by coag clinic 55 Tablet 3 02/11/2023 3 Discontinue d(Refill) documented as of this encounter (statuses as of 08/27/2023) Active Problems Problem Noted Date Diagnosed Date Stenosis of right subclavian artery 11/17/2021 Senile osteoporosis 08/30/2021 Chronic kidney disease, stage 3 unspecified 10/10 Diastolic dysfunction 11/03/2018 THERESA (obstructive sleep apnea) 11/20/2017 Parathyroid abnormality 08/19/2017 Lupus anticoagulant disorder 10/17/2016 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 Severe atherosclerotic plaque(s) in the descending aorta PAF (paroxysmal atrial fibrillation) 07/27/2016 High risk for fracture due to osteoporosis by DE XA scan 06/18/2016 Old DE (myocardial infarction) 06/06/2012 Mixed hyperlipidemia 08/16/2009 Overview: [...] as of this encounter (statuses as of 08/27/2023) Resolved Problems Problem Noted Date Diagnosed Date [...] 06/18/2016 08/19/2017 Diastolic CHF 12/28/2015 11/03/2018 Acute DE 05/30/2012 06/06/2012 Chronic ischemic heart disease 01/17/2007 12/25/2018 Pneumonia due to organism Overview: ICD-10 update of inactive term IDIO PERIPH NEURPTHY NOS 07/2018 PURE HYPERCHOLESTEROLEM 04/2009 Overview: Per Lipid Taxonomy. documented as of this encounter (statuses as of 08/27/2023) Immunizations Name Administration Dates Next Due COVID-19 mRNA, LNP-s, No Pre serve, 2-Dose Series ([employer]) 06/17/2021,11/18/2020,10/28/2020 COVID-19, LNP-s, No Preserve , Brennan-sucrose, Ages 12+ ([employer]) 12/22/2021 Covid-19, Mrna, Lnp-s, Pf, B ivalent, 30 Mcg, IM, 12 yrs and above ([employer]) 06/29/2023,06/11/2022 H1N1 2009 Influenza, IM 10/01/2009 Pneumococcal [...] encounter Miscellaneous Notes * Telephone Encounter - Ekta Raymond RP - 08/27/2023 9:38 AM ESTSigned Prescriptions: Disp Refills Warfarin Sodium 1 MG Oral Tablet (Coumadin)75 Tab*3 Sig: Take 1 tablet Sat, Sat, , Fri & Sat or as directed by coag clinicAuthorizing Provider: MARIO PEREZ User: EKTA GOINS V * Telephone Encounter - Ekta Raymond RPh - 08/27/2023 9:36 AM EST Did you pend patient's preferred pharmacy and medication before forwarding?no Pharmacy: [id number] [facility] Pending Prescriptions: Disp Refills Warfarin Sodium 1 MG Oral Tablet (Coumadi*55 Tab*3 Sig: Take 1 tablet Sat, Sat, Sat & Sat or as directed by coag clinic Last Visit: Visit date not found (in office), Visit date not found (telemedicine) Next Visit: 09/05/2023 If no future appointments scheduled, and last appointment is greater than a year ago, please schedule patient for a follow-up appointment Last date the medication was ordered: 02/11/23 Is this request for a controlled substance?No Urine Drug Screen:No results found. However, due to the size of the patient record, not all encounters were searched. Please check Results Review for a complete set of results. Patient Phone Numbers Labs: Lab Results Component Value Date/Time CREAT 0.9 06/26/2023 07:40 AM CREAT 1.11 06/06/2021 12:00 AM CREAT 1.1 05/09/2020 01:47 PM CREAT 1.0 08/05/1996 09:00 AM POTASSIUM 4.3 06/26/2023 07:40 AM POTASSIUM 3.8 06/06/2021 12:00 AM POTASSIUM 3.7 05/09/2020 01:47 PM POTASSIUM 4.0 08/05/1996 09:00 AM TSH 1.97 05/23/2022 11:16 AM TSH 2.04 01/06/2020 09:22 AM LDLCALC 64 06/26/2023 07:40 AM LDLCALC 76 12/31/2019 08:28 AM LDLDIRECT 81 08/19/2020 09:04 AM LDLDIRECT 89 03/31/2010 08:45 AM ALT 27 06/26/2023 07:40 AM ALT 19 08/19/2020 09:04 AM ALT 31 08/05/1996 09:00 AM HGBA1C 5.6 05/23/2022 11:16 AM HGBA1C 6.2 (H) 01/06/2020 09:22 AM Ekta Goins RPh, CACP, CDE Clinical Pharmacist Medication Therapy Management [facility] 08/27/2023, 9:36 AM documented in this encounter Plan of Treatment Upcoming Encounters Date Type Department Care Team (Late st Contact Info) Description 09/05/2023 8:00 AM EST Anticoagulation Pharmacy, [facility] [place] [address] [facility] [place] [address] Pharmacist1, [facility] [address] [place] [address] 12/23/2023 1:40 PM EDT Office Visit Endocrinology, [address] [address] Hetal Cali MD [address] [place] [id number] 12/27/2023 8:40 AM EDT Office Visit General Internal Medicine [facility] [place] [address] [facility] [place] [address] Mario Perez MD [address] [facility] [place] [address] 02/27/2024 9:00 AM EDT Office Visit Cardiology, [facility] [address] [place] [address] Noel Knapp PA-C [address] [place] [address] 06/30/2024 9:40 AM EDT Office Visit Rheumatology [place] [id number] [facility] [place] [address] Damion Mulligan MD [address] [place] [address] Health Maintenance Due Date Last Done Comments [...] D LEVEL ONCE IN A LIFETIME-USE SMARTSET# 48876 Completed 06/26/2023, 01/16/2023, 06/20/2022, Additional history exists [...] this encounter Medical Devices Implanted Type Area Repeat Photocomposing Machine Operator Device Identifier Shelf Expiration Date Model / Serial / Lot Lens 24.0 Mx60 - [id number] - [id number] Implanted:Qty: 1 on 01/30/2018 by Russell Alaniz MD at OR [facility] Left: Eye [employer] : SURGICAL 07/09/2020 MX60-24.0 / [id number] / [id number] [employer] Hydrophobic Acrylic Intraoular Lens Implanted:Qty: 1 on 02/11/2018 by Russell Alaniz MD at OR [facility] Right: Eye [employer] 08/08/2020 [id number] / [id number] / [id number] documented as of this encounter Visit Diagnoses Diagnosis Lupus anticoagulant disorder (HCC) Primary hypercoagulable state PAF (paroxysmal atrial fibrillation) (HCC) Atrial fibrillation [...] and were consensually agreed upon. Care Teams Flat Bed Knitter Relationship Specialty Start Date End Date Mario Perez MD [address] [place] [address] [place] [address] PCP - General Internal Medicine 11/09/13 documented as of this encounter
--- OUTSIDE RECORDS SUMMARY | 2023-10-04 05:22 | External Medical Summary | Summary of Care ---
Author Name Unknown Organization [facility] Address [address] [place] [address] Phone [phone] Care Team Providers Care Right Of Way Clearer Name Role Phone Mario Mosquera MD Primary Care Provider + Reason for Visit * Reason Comments Dosage Adjustment In Person (Anticoag Cl inic) Encounter Details Date Type Department Care Team (Latest Contact Info) Description 07/26/2023 8:20 AM EST Anticoagulation Pharmacy, [facility] [address] [place] [address] Pharmacist1, [facility] [address] [facility] [place] [address] PAF (paroxysmal atrial fibrillation) (HCC)*; Lupus anticoagulant disorder (HCC); Anticoagulation management encounter; jail current use of anticoagulant therapy Allergies No known active allergiesdocumented as of this encounter (statuses as of 07/26/2023) Medications Medication Sig Dispensed Refills Start Date [...] as of this encounter (statuses as of 07/26/2023) Active Problems Problem Noted Date Diagnosed Date Stenosis of right subclavian artery 11/17/2021 Senile osteoporosis 08/30/2021 Chronic kidney disease, stage 3 unspecified 10/10 Diastolic dysfunction 11/03/2018 THERESA (obstructive sleep apnea) 11/20/2017 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 Severe atherosclerotic plaque(s) in the descending aorta PAF (paroxysmal atrial fibrillation) 07/27/2016 High risk for fracture due to osteoporosis by DE XA scan 06/18/2016 Old [place] (myocardial infarction) 06/06/2012 Mixed hyperlipidemia 08/16/2009 Overview: [...] as of this encounter (statuses as of 07/26/2023) Resolved Problems Problem Noted Date Diagnosed Date [...] 06/18/2016 08/19/2017 Diastolic CHF 12/28/2015 11/03/2018 Acute [place] 05/30/2012 06/06/2012 Chronic ischemic heart disease 01/17/2007 12/25/2018 Pneumonia due to organism Overview: ICD-10 update of inactive term IDIO PERIPH NEURPTHY NOS 07/2018 PURE HYPERCHOLESTEROLEM 04/2009 Overview: Per Lipid Taxonomy. documented as of this encounter (statuses as of 07/26/2023) Immunizations Name Administration Dates Next Due COVID-19 mRNA, LNP-s, No Pre serve, 2-Dose Series ([email or web address]) 06/17/2021,11/18/2020,10/28/2020 COVID-19, LNP-s, No Preserve , Brennan-sucrose, Ages 12+ (Pfizer) 12/22/2021 Covid-19, Mrna, Lnp-s, Pf, B ivalent, 30 Mcg, IM, 12 yrs and above ([employer]) 06/29/2023,06/11/2022 H1N1 2009 Influenza, IM 10/01/2009 Pneumococcal Conjugate Vacc, 13 Valent (Prevnar) 11/08/2015 Pneumococcal Conjugate Vaccine, 7 Valent 010 Pneumococcal Polysaccharide PPV23 (Pneumovax) 12/23/2013 RSV Vac., Bivalent, Perfusio n F, Pf,0.5 Ml (Abrysvo) 06/29/2023 SEASONAL INFLUENZA, PF, 6 M & Above, [...] as of this encounter Progress Notes * Anthony Raymond RPh - 07/26/2023 8:16 AM EST Images from the original note were not included. Medication Therapy Disease Management - Anticoagulation Andrew Reardon 1945 Description Needs reduced dose on doxycyline Patient Findings Negatives: Signs/symptoms of thrombosis, Signs/symptoms of bleeding, Change in health, Change in alcohol use, Change in activity, Upcoming invasive procedure, Missed doses, Extra doses, Change in medications, Change in diet/appetite, Bruising INR Result As of 07/26/2023 INR goal: 2.0-3.0 INR used for dosin.7 (07/26/2023) Warfarin Plan As of 07/26/2023 Full warfarin instructions: 07/26: Hold; Otherwise 2.5 mg every Sun, e, Katherine; 1 mg all other days Next INR check: 09/05/2023 Repeat PT/INR in 6 week(s) Weekly dose: not changed Anthony Goins RPh, CACP, CDE Clinical Pharmacist Medication Therapy Management Clinic 07/26/2023 8:23 AM documented in this encounter Plan of Treatment Upcoming Encounters Date Type Department Care Team (Late st Contact Info) Description 07/30/2023 3:00 PM EST Office Visit Orthopaedics [facility] [address] [place] [address] Rafael Sanford MD [address] [place] [address] 08/22/2023 8:30 AM EST Office Visit Cardiology, [facility] [address] [place] [address] Noel Knapp PA-C [address] [place] [address] 09/05/2023 8:00 AM EST Anticoagulation Pharmacy, [facility] [address] [facility] [place] [address] Pharmacist1, [facility] [address] [facility] [place] [address] 12/23/2023 1:40 PM EDT Office Visit Endocrinology, [place] [address], [place] [id number] Hetal Cali MD [address], [place] [id number] 12/27/2023 8:40 AM EDT Office Visit General Internal Medicine [facility] [address] [facility] [place], [place] [address] Mario Mosquera MD [address] [facility] [place], [place] [address] 06/30/2024 9:40 AM EDT Office Visit Rheumatology [facility] [address] [place], [place] [address] Damion Mulligan MD [address] [place], [place] [address] Health Maintenance Due Date Last Done Comments *BISPHONATE OR OTHER ACCEPTABLE MEDICATION NEEDED FOR OSTEOPOROSIS (REFER TO SMARTSET #1146) 10/07/2022 COVID-19 Vaccine ( season) 2023 06/29/2023, 06/29/2023, 06/11/2022, Additional history exists DTaP,Tdap,and Td Vaccines (3 - Td or Tdap) 11/17/2023 11/16/2013, 01/07/1994 Depression Screening 06/14/2024 06/14/2023, 05/10/20 15 GFR 06/26/2024 06/26/2023, 01/07, 07/13/2022, Additional history exists Albumin/Creatinine Ratio 05/23/2025 05/23/2022 DXA Scan 06/26/2025 06/26/2023, 12/2020, 03/26/2019, Additional history exists Pneumococcal Vaccine: 65+ Years Completed 11/08/2015, 12/23/2013 Zoster Vaccines Completed 02/19/2020, 04/2020, 05/22/2012 COLONOSCOPY-EVERY 5 YRS AGES 18-100 Discontinued 11/07/2021, 11/07/2021, 09/07/2015, Additional history exists Influenza Vaccine (FLU shot) Completed 06/14/2023, 05/22/2022, 05/24/2021, Additional history exists VITAMIN D LEVEL ONCE IN A LIFETIME-USE SMARTSET# [id number] Completed 06/26/2023, 01/16/2023, 06/20/2022, Additional history exists [...] this encounter Medical Devices Implanted Type Area Derrick Boat Runner Device Identifier Shelf Expiration Date Model / Serial / Lot Lens 24.0 Mx60 - [id number] - [id number] Implanted:Qty: 1 on 01/30/2018 by Russell Alaniz MD at OR [facility] Left: Eye [employer] LOMB : SURGICAL 07/09/2020 MX60-24.0 / [id number] / [id number] Envista Hydrophobic Acrylic Intraoular Lens Implanted:Qty: 1 on 02/11/2018 by Russell Alaniz MD at OR [facility] Right: Eye BAUSCH [employer] LOMB 08/08/2020 [id number] / [id number] / [id number] documented as of this encounter Procedures Procedure Name Priority Date/Time Associated Diagnosis Comments INR FINGERSTICK, POINT OF CARE STAT 07/26/2023 8:19 AM EST PAF (paroxysmal atrial fibrillation) (HCC) Lupus anticoagulant disorder (HCC) Anticoagulation management encounter 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 documented in this encounter Results * INR FINGERSTICK, POINT OF CARE (07/26/2023 8:19 AM EST) Fingerstick INR 3.7 INR 8:21 AM EST Predictify [facility] Anokion SA 56-02 Blood 07/26/2023 8:19 AM EST 07/26/2023 8:20 AM EST [facility] 56-02 - 07/26/2023 8:21 AM EST Therapeutic ranges for non-operative patients: Prophylaxsis/treatment of DVT: (Range:2.0-3.0) Treatment of pulmonary embolism:(Range:2.0-3.0) Prevention of systemic embolism from: -tissue heart valves -acute myocardial infarction -valvular heart disease -atrial fibrillation (Range: 2.0-3.0) Mechanical prosthetic valves: (Range: 2.5-3.5) Anthony Cruz RPh LAB POINT OF CARE TE ST DOCKED DEVICE UNSOLICITED RESULTS [facility] 56-02 [address] [facility] [address] documented in this encounter Visit Diagnoses Diagnosis PAF (paroxysmal atrial fibrillation) (HCC)- Primary Atrial fibrillation Lupus anticoagulant disorder (HCC) Primary hypercoagulable state Anticoagulation management encounter Encounter for therapeutic drug monitoring 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 Care Teams Right Of Way Clearer Relationship Specialty Start Date End Date Mario [facility]quera MD [address] [facility] [address] PCP - General Internal Medicine 11/09/13 documented as of this encounter
--- OUTSIDE RECORDS SUMMARY | 2023-10-04 05:22 | External Medical Summary | Summary of Care ---
Author Name Unknown Organization [facility] Address [address] [place] [address] Phone [phone] Care Team Providers Care Solid State Tester Name Role Phone Mario Perez MD Primary Care Provider + Reason for Visit * Reason Comments eRx-Medication Refill Encounter Details Date Type Department Care Team (Late st Contact Info) Description 07/12/2023 Refill General Internal Medicine [facility] [address] [facility] [address] Mario Perez MD 200 [place] [address] Allergies No known active allergiesdocumented as of this encounter (statuses as of 07/12/2023) Medications Medication Sig Dispensed Refills Start Date End Date Status ASPIRIN 81 MG PO TABS one daily 0 Active B Complex Vitamins (B COMPLEX 50) TBCR Take by mouth. 0 05/29/2017 Active Cyanocobalamin (B-12) 5000 MCG CAPS Take [...] THE MORNING 90 Tablet 1 07/12/2023 Active Lisinopril 20 MG Oral Tablet (Prinivil) Take 1 Tablet (20 mg) by mouth in the morning. 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 Severe atherosclerotic plaque(s) in the descending aorta PAF (paroxysmal atrial fibrillation) 07/27/2016 High risk for fracture due to osteoporosis by DE XA scan 06/18/2016 Old [place] (myocardial infarction) 06/06/2012 Mixed hyperlipidemia 08/16/2009 Overview: [...] as of this encounter (statuses as of 07/12/2023) Resolved Problems Problem Noted Date Diagnosed Date [...] 06/18/2016 08/19/2017 Diastolic CHF 12/28/2015 11/03/2018 Acute [place] 05/30/2012 06/06/2012 Chronic ischemic heart disease 01/17/2007 12/25/2018 Pneumonia due to organism Overview: ICD-10 update of inactive term IDIO PERIPH NEURPTHY NOS 07/2018 PURE HYPERCHOLESTEROLEM 04/2009 Overview: Per Lipid Taxonomy. documented as of this encounter (statuses as of 07/12/2023) Immunizations Name Administration Dates Next Due COVID-19 mRNA, LNP-s, No Pre serve, 2-Dose Series ([employer]) 06/17/2021,11/18/2020,10/28/2020 COVID-19, LNP-s, No Preserve , Brennan-sucrose, Ages 12+ (Pfizer) 12/22/2021 Covid-19, Mrna, Lnp-s, Pf, B ivalent, 30 Mcg, IM, 12 yrs and above (Pfizer) 06/29/2023,06/11/2022 H1N1 2009 Influenza, IM 10/01/2009 Pneumococcal [...] encounter Miscellaneous Notes * Telephone Encounter - Roger Pollock [facility] - 07/12/2023 2:22 PM EDT Signed Prescriptions: Disp Refills Lisinopril 20 MG Oral Tablet (Prinivil) 90 Tab*1 Sig: TAKE 1 TABLET BY MOUTH EVERY DAY IN THE MORNINGAuthorizing Provider: MARIO PEREZ User: ROGER POLLOCK documented in this encounter Plan of Treatment Upcoming Encounters Date Type Department Care Team (Late st Contact Info) Description 07/26/2023 8:20 AM EST Anticoagulation Pharmacy, [facility] [address] [place] [address] Pharmacist1, [facility] [address] [place], [place] [address] 07/30/2023 3:00 PM EST Office Visit Orthopaedics [facility] [address] [facility] [place] [address] Rafael Sanford MD [address] [facility] [address] 08/22/2023 8:30 AM EST Office Visit Cardiology, [facility] [address] [facility] [place] [address] Noel Knapp PA-C [address] [place] [address] 12/23/2023 1:40 PM EDT Office Visit Endocrinology, [place] [address] [place], [place] [phone] Hetal Cali MD [address] [place], [place] [phone] 12/27/2023 8:40 AM EDT Office Visit General Internal Medicine [facility] [address] [place] [address] Mario Perez MD [address] [place], [place] [address] 06/30/2024 9:40 AM EDT Office Visit Rheumatology [facility] [address] [facility] [place] [address] Damion Mulligan MD [address] [place] [address] Health Maintenance Due Date Last Done Comments [...] D LEVEL ONCE IN A LIFETIME-USE SMARTSET# [id number] Completed 06/26/2023, 01/16/2023, 06/20/2022, Additional history exists [...] this encounter Medical Devices Implanted Type Area Foundation Engineer Device Identifier Shelf Expiration Date Model / Serial / Lot Lens 24.0 Mx60 - [id number] - [id number] Implanted:Qty: 1 on 01/30/2018 by Russell Alaniz MD at OR [facility] Left: Eye BA[employer]CH [employer] LOMB : SURGICAL 07/09/2020 MX60-24.0 / [id number] / [id number] [employer]ista Hydrophobic Acrylic Intraoular Lens Implanted:Qty: 1 on 02/11/2018 by Russell Alaniz MD at OR [facility] Right: Eye BA[employer]CH [employer] LOMB 08/08/2020 [id number] / [id number] / [id number] documented as of this encounter Advance Directives [...] and were consensually agreed upon. Care Teams Solid State Tester Relationship Specialty Start Date End Date Mario Perez MD [address] [place] [address] PCP - General Internal Medicine 11/09/13 documented as of this encounter
--- OUTSIDE RECORDS SUMMARY | 2023-10-04 05:22 | External Medical Summary | Summary of Care ---
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 Severe atherosclerotic plaque(s) in the descending aorta PAF (paroxysmal atrial fibrillation) High risk for fracture due to osteoporos is by DEXA scan 06/18/2016 Old [place] (myocardial infarction) 2 Mixed hyperlipidemia 08/16/2009 Overview: [...] 06/18/2016 08/19/2017 Diastolic CHF 12/28/2015 11/03/2018 Acute [place] 05/30/2012 06/06/2012 Chronic ischemic heart disease 01/17/2007 0 12/25/2018 Pneumonia due to organism 2013 Overview: ICD-10 update of inactive term IDIO PERIPH NEURPTHY NOS 018 PURE HYPERCHOLESTEROLEM 08/16/20 09 Overview: Per Lipid Taxonomy. documented as of this encounter (statuses as of 06/26/2023) Immunizations Name Administration Dates Next Due COVID-19 mRNA, LNP-s, No Pre serve, 2-Dose Series ([employer]) 06/17/2021,11/18/2020,10/28/2020 COVID-19, LNP-s, No Preserve , Brennan-sucrose, Ages 12+ ([employer]) 12/22/2021 Covid-19, Mrna, Lnp-s, Pf, B ivalent, 30 Mcg, IM, 12 yrs and above ([employer]) 06/11/2022 H1N1 2009 Influenza, IM 10/01/2009 Pneumococcal [...] Wed, Fri & Sat or [facility] Tablet 3 Rosuvastatin Calcium 40 [...] Care Team Description 07/26/2023 Anticoagulation Pharmacy Pharmacist1, [facility] [address] [place] [address] 08/22/2023 Office Visit Cardiology Noel Knapp PA-C [address] [place] [address] 12/23/2023 Office Visit Endocrinology Hetal Cali MD [address] [place] [address] 12/27/2023 Office Visit Internal Medicine Mario Mosquera MD [address] [place] [address] 06/30/2024 Office Visit Rheumatology Damion Mulligan MD [address] [place] [address] [place] [address] Health Maintenance Due Date Last Done Comments [...] D LEVEL ONCE IN A LIFETIME-USE SMARTSET# [id number] Completed 01/16/2023, 06/20/2022, 05/23/2022, Additional history exists [...] this encounter Medical Devices Implanted Type Area Administrative Assistant Coordinator Device Identifier Shelf Expiration Date Model / Serial / Lot Lens 24.0 Mx60 - [id number] - [id number] Implanted:Qty: 1 on 01/30/2018 by Russell Alaniz MD at OR [facility] Left: Eye BAUSCH [employer] LOMB : SURGICAL 07/09/2020 MX60-24.0 / [id number] / [id number] [employer] Hydrophobic Acrylic Intraoular Lens Implanted:Qty: 1 on 02/11/2018 by Russell Alaniz MD at OR [facility] Right: Eye [employer]CH [employer] LOMB 08/08/2020 [id number] / [id number] / [id number] documented as of this encounter Visit Diagnoses [...] and were consensually agreed upon. Care Teams Advertising Internship Relationship Specialty Start Date End Date Mario Mosquera MD [address] [place] [address], [place] [address] PCP - General Internal Medicine 11/09/13 documented as of this encounter"
--- OUTSIDE RECORDS SUMMARY | 2023-10-04 05:22 | External Medical Summary ---
Author Name Unknown Address Unknown Organization K09:[facility] [place] [address] Laboratory Report Ordering Provider Test Date Status EKTADEV V 07/26/2023 08:19:38 Final Therapeutic ranges for non-o perative patients:
Prophylaxsis/treatment of DVT: (Range:2.0-3.0)
Treatment of pulmonary embolism:(Range:2.0-3.0)
Prevention of systemic embolism from:
-tissue heart valves
-acute myocardial infarction
-valvular heart disease
-atrial fibrillation
(Range: 2.0-3.0)
Mechanical prosthetic valves: (Range: 2.5-3.5) Observation Date Value Abnormality Reference (Units ) Status INR in Capillary blood by Coagulation assay 07/26/2023 08:19:38 3.7 (INR) Final Performing Location [facility] [place] [address]
--- OUTSIDE RECORDS SUMMARY | 2023-10-04 05:22 | External Medical Summary ---
Author Name Unknown Address Unknown Organization K09:[facility] [place] [address] Laboratory Report Ordering Provider Test Date Status EKTADEV V 09/05/2023 07:57:38 Final Therapeutic ranges for non-o perative patients:
Prophylaxsis/treatment of DVT: (Range:2.0-3.0)
Treatment of pulmonary embolism:(Range:2.0-3.0)
Prevention of systemic embolism from:
-tissue heart valves
-acute myocardial infarction
-valvular heart disease
-atrial fibrillation
(Range: 2.0-3.0)
Mechanical prosthetic valves: (Range: 2.5-3.5) Observation Date Value Abnormality Reference (Units ) Status INR in Capillary blood by Coagulation assay 09/05/2023 07:57:38 2.9 (INR) Final Performing Location [facility] [place] [id number]
--- OUTSIDE RECORDS SUMMARY | 2023-10-04 05:22 | External Medical Summary | Summary of Care ---
Author Name Unknown Organization [facility] Address [address] [place] [address] Phone [phone] Care Team Providers Care Analog Ic Design Engineer Name Role Phone Mario Mosquera MD Primary Care Provider + Reason for Visit * Reason Comments Follow Up Bilateral knee * Precert (Within 10 days (routine)) - Authorized Specialty Diagnoses / Procedures Referred By Contac t Referred To Contact Diagnoses Bilateral primary osteoarthritis of knee Procedures IN SYNVISC OR SYNVISC-ONE Rafael Sanford MD [address] [place] [address] Rafael Sanford MD [address] [place] [address] Referral ID Status Reason Start Date Expiration Date V isits Requested Visits Authorized [id number] Authorized Precert 07/04/2023 07/03/[id number] Encounter Details Date Type Department Care Team (Latest Contact Info) Description 07/30/2023 3:00 PM EST Office Visit Orthopaedics [facility] [address] [place] [address] Rafael Sanford MD [address] [place] [address] Primary osteoarthritis of both knees* Allergies No known active allergiesdocumented as of this encounter (statuses as of 07/30/2023) Medications Medication Sig Dispensed Refills Start Date [...] THE MORNING 90 Tablet 1 07/12/2023 Active Hospital, Clinic, or Other Facility Administered Medication Ordered Dose Route Frequency Start Date End Date Status lidocaine 1% 1 mL - triamcinolone acetonide 40 mg/mL 1 mL inj 2 mLIndications:Primary osteoarthritis of both knees 2 mL IJ ONCE 07/30/2023 07/30/2023 Ended lidocaine 1% 1 mL - triamcinolone acetonide 40 mg/mL 1 mL inj 2 mLIndications:Primary osteoarthritis of both knees 2 mL IJ ONCE 07/30/2023 07/30/2023 Ended documented as of this encounter (statuses as of 07/30/2023) Active Problems Problem Noted Date Diagnosed Date Stenosis of right subclavian artery 11/17/2021 Senile osteoporosis 08/30/2021 Chronic kidney disease, stage 3 unspecified 10/10 Diastolic dysfunction 11/03/2018 THERESA (obstructive sleep apnea) 11/20/2017 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 Severe atherosclerotic plaque(s) in the descending aorta PAF (paroxysmal atrial fibrillation) 07/27/2016 High risk for fracture due to osteoporosis by DE XA scan 06/18/2016 Old NH (myocardial infarction) 06/06/2012 Mixed hyperlipidemia 08/16/2009 Overview: [...] as of this encounter (statuses as of 07/30/2023) Resolved Problems Problem Noted Date Diagnosed Date [...] 06/18/2016 08/19/2017 Diastolic CHF 12/28/2015 11/03/2018 Acute NH 05/30/2012 06/06/2012 Chronic ischemic heart disease 01/17/2007 12/25/2018 Pneumonia due to organism Overview: ICD-10 update of inactive term IDIO PERIPH NEURPTHY NOS 07/2018 PURE HYPERCHOLESTEROLEM /04/2009 Overview: Per Lipid Taxonomy. documented as of this encounter (statuses as of 07/30/2023) Immunizations Name Administration Dates Next Due COVID-19 mRNA, LNP-s, No Pre serve, 2-Dose Series (LIQUITY) 06/17/2021,11/18/2020,10/28/2020 COVID-19, LNP-s, No Preserve , Brennan-sucrose, [...] as of this encounter Progress Notes * Rafael Sanford MD - 07/30/2023 3:10 PM EST Andrew Reardon [id number] Andrew Reardon is a 75 year old male who presents for f/u to [facility] for left greater than right knee injury/pain. I saw him originally for this on 03/10/2021 Most recent visit for these issues was on 04/17/2023 Andrew Orourke Caron is here with his Quality: reviewed and agree with Nursing Notes for HPI elements History: History on 03/10/2021 - New patient left knee pain, patient is on Warfarin last INR 3.3 Patient notes 11/2019 had B/L injection in knees by [facility]. Gel injection of some sort, not sure what kind. Pain is diffusely located across both knees. No current treatment Additional history 08/23/2021 He had substantial long-term benefit from the steroid injections was very pleased. Would like repeat injection Additional history on 01/31/2022: f/u b/l knee pain 910 x 2 weeks Ppatient is on Warfarin last INR 2.1 01/09/22 Patients last injection was 08/23/2021 any had substantial long-term benefit from those bilateral steroid injections. Additional history 12/18/2022: Patient presents today for bilateral knee pain with the hope to have repeat steroid injection injection. Patients states he can barely walk. Pt states his knees are sore. Reports that pain came back about 1 month ago and therefore he got approximately 9-10 months benefit Additional history on 04/17/2023: Pt presents for bilateral knee pain. Bilateral knee stiffness and Pain 7/10 x 2 weeks. Last bilateral knee steroid injection on 12/18/22. Since that visit: presents for bilateral knee pain. Pain 6/10 x 1 month. Last bilateral knee steroid injection on 04/17/23 helped. ROS: ROS per HPI otherwise non-contributory Past Medical History: Diagnosis Date Adverse reaction to DAYSI inhibitor drug 03/17/2020 CAD (coronary artery disease) Diastolic CHF ([facility]) 12/28/2015 Diastolic dysfunction 11/03/2018 Dyslipidemia, goal LDL below 100 08/16/2009 Per Lipid Taxonomy. Hereditary and idiopathic peripheral neuropathy High risk for fracture due to osteoporosis by DEXA scan 06/18/2016 HTN, goal below 140/90 01/17/2007 Infarction of kidney ([facility]) 12/18/2017 Old NH (myocardial infarction) 06/06/2012 Osteoporosis 06/18/2016 Pre-diabetes 01/07/2020 Reflux esophagitis 01/17/2007 Renal infarct ([facility]) 01/09/2017 Splenic infarct 2017 Stenosis of right subclavian artery ([facility]) 11/17/2021 Family History Problem Relation Age of Onset Heart Disorder Mother Hypertension Mother Stroke Mother Musculo-skeletal Disorder Mother osteoporosis - hip fracture Osteoporosis Mother hip fracture Heart Disorder Father Hypertension Father Diabetes Father Diabetes Grandmother (Paternal) Cancer Son mouth Social History Socioeconomic History Marital status: Spouse name: Not on file Number of children: 2 Years of education: Not on file Highest education level: Not on file Occupational History 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 Comment: [employer] Social Needs Financial resource strain: Not on file Food insecurity Worry: Never true Inability: Never true Transportation needs Medical: Not on file Non-medical: Not on file Tobacco Use Smoking status: Former Smoker Packs/day: 0.50 Years: 55.00 Pack years: 27.50 Types: Cigarettes Quit date: 09/24/2005 Years since quittin.4 Smokeless tobacco: Never Used Substance and Sexual Activity Alcohol use: Yes Alcohol/week: 8.3 standard drinks Types: 10 12 oz of beer per week Comment: social Drug use: No Sexual activity: Yes Lifestyle Physical activity Days per week: Not on file Minutes per session: Not on file Stress: Not on file Relationships Social connections Talks on phone: Not on file Gets together: Not on file Attends congregational service: Not on file Active member of club or organization: Not on file Attends meetings of clubs or organizations: Not on file Relationship status: Not on file Intimate partner violence Fear of current or ex partner: Not on file Emotionally abused: Not on file Physically abused: Not on file Forced sexual activity: Not on file Other Topics Concern Not on file Social History Narrative Not on file Vaping/E-Cigarette Use Vaping/E-Cigarette Use Never User Vaping/E-Cigarette Substances Vaping/E-Cigarette Devices Physical Exam Constitutional: Generally well-nourished and in no acute distress Psychiatric: Mood and Affect normal Eyes: EOMI Respiratory: Normal respiratory effort with regular rate and rhythm Cardiovascular: No edema in the affected extremity(s) Knee Exam, Bilateral Inspection: No abnormality Alignment: Normal Bilateral Effusion: Negative Bilateral Radiology (I have personally reviewed the following films): 01/31/2022: Three-view x-ray right knee FINDINGS: Bones/joints: Sclerotic medullary region in the distal femoral metadiaphyseal area measures 37 x 19 mm in size and is similar in size and appearance to the previous exam. Linear calcific deposits are present in the joint spaces and consistent with calcium pyrophosphate deposition disease. Loss of joint space with sclerosis and osteophytosis is present in the patellofemoral joint. Loss of joint space with sclerosis and osteophytosis is present in the medial knee compartment. Soft tissues: Vascular calcifications are noted. IMPRESSION IMPRESSION: 1. Mild arthritis changes. 2. Stable appearance of distal femoral sclerotic lesion. 03/10/2021: Three-view x-ray each knee IMPRESSION 1. Mild osteoarthritis of both knees. 2. Nonaggressive sclerotic bone lesion in the right distal femur appears most consistent with either a bone infarct or enchondroma. Follow-up radiographs of the right knee could be considered in approximately 6-12 months to ensure stability. Assessment and Plan: 1) Chronic BL knee pain Secondary to DJD, which is tricompartmental and mild Options discussed Bilateral intra-articular steroid injections performed 03/10/2021, 08/23/2021, and 01/31/2022 gave him substantial long-term benefit. the most t injections on 12/18/22 he got approximately 3.5 months. Previously he had gotten approximately 9 months benefit. Most recent injections were performed on 04/17/2023 gave him about 3 months benefit. Repeat intra-articular steroid injections performed today 07/30/2023. Important note we also attempt to do obtain prior authorization for viscosupplementation. This was denied by his insurance as he is not done therapy. Not willing to do therapy at this time. 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 Cordon ([facility] radiology [facility]) Repeat radiograph 01/31/2022 showed: . Stable appearance of distal femoral sclerotic lesion. With prior radiograph from 03/10/2021 this shows nearly 11 months of stability Recommend repeat radiographs in 2 years. Discussed with patient the importance of having this done again in 2 years from Radiography dated 01/31/2022. Previous recommendations: Tylenol (Acetaminophen) Regular Strength 325 mg (1-2 tablets up to 3 times per day) Use the lowest amount of medication as infrequently as possible to control your pain at a tolerablelevel Do not take Tylenol if drinking more than 3 alcohol drinks daily You can also try topical Voltaren gel (Diclofenac Sodium Topical Gel) which is over the counter up to 4 times per day Procedure note (knee injection), bilateral : Time out: Prior to injection, a time out was called to confirm the administration of appropriate medicine, patient name, procedure and confirm to the best of our ability and knowledge the presence of any necessary risks and benefits. Patient verbalizes understanding. Sterile techinique applied. Skin sterilized with alcohol swab. Knee injected using 1.5 inch, 22 gauge needle. Injected with Injected with 1 ml lidocaine 1%, triamcinolone acetonide 40mg/ml 1 ml. Patient tolerated procedure with no significant bleeding or adverse reaction. Patient instructed to call or return to clinic for fever or warmth and redness at injection site for potential infection. Patient also advised as to potential for steroid flare reaction including increased pain and redness at injection site which should be treated with ice and resolve within 24 hours. Rafael Sanford MD Primary Care Sports Medicine [address] [address] documented in this encounter Nursing Notes * Nelda Nogueira, RN - 07/30/2023 2:51 PM EST Pt presents for bilateral knee pain. Pain 6/10 x 1 month. Last bilateral knee steroid injection on 04/17/23 Nelda Nogueira RN documented in this encounter Plan of Treatment Upcoming Encounters Date Type Department Care Team (Late st Contact Info) Description 08/22/2023 8:30 AM EST Office Visit Cardiology, [facility] [address] [place] [address] Noel Knapp PA-C [address] [place] [address] 09/05/2023 8:00 AM EST Anticoagulation Pharmacy, [facility] [address] [place] [address] Pharmacist1, [facility] [address] [facility] [place] [address] 12/23/2023 1:40 PM EDT Office Visit Endocrinology, [place] [address] [place] [address] Hetal Cali MD [address] [place] [address] 12/27/2023 8:40 AM EDT Office Visit General Internal Medicine [facility] [address] [place] [address] Mario Mosquera MD [address] [facility] [address] [facility] [place] [address] 06/30/2024 9:40 AM EDT Office Visit Rheumatology [place] [id number] [place] [address] Damion Mulligan MD [address] [place] [address] Health Maintenance Due Date Last Done Comments *BISPHONATE OR OTHER ACCEPTABLE MEDICATION NEEDED FOR OSTEOPOROSIS (REFER TO SMARTSET #1146) 10/07/2022 COVID-19 Vaccine (7 - 2022- season) 2023 06/29/2023, 06/29/2023, 06/11/2022, Additional [...] D LEVEL ONCE IN A LIFETIME-USE SMARTSET# 86572 Completed 06/26/2023, 01/16/2023, 06/20/2022, Additional history exists [...] this encounter Medical Devices Implanted Type Area Pci Security Consultant Device Identifier Shelf Expiration Date Model / Serial / Lot Lens 24.0 Mx60 - [id number] - [id number] Implanted:Qty: 1 on 01/30/2018 by Russell Alaniz MD at [facility] Left: Eye [employer] : SURGICAL 07/09/2020 MX60-24.0 / [id number] / [id number] Envista Hydrophobic Acrylic Intraoular Lens Implanted:Qty: 1 on 02/11/2018 by Russell Alaniz MD at [facility] Right: Eye [employer] 08/08/2020 [id number] / [id number] / [id number] documented as of this encounter Visit Diagnoses Diagnosis Primary osteoarthritis of both knees- Primary Primary localized osteoarthrosis, lower leg documented in this encounter Administered Medications Inactive Administered Medications - up to 3 most recent administrations Medication Order MAR Action Action Date Dose Rate Site lidocaine 1% 1 mL - triamcinolone acetonide 40 mg/mL 1 mL inj 2 mL 2 mL, Injection, ONCE, On Sat07/30/23 at 1615, For 1 dose, Lidocaine 1% 1mL Triamcinolone Acetonide 40 mg/mL 1 mL (Final concentration = 20 mg/mL) REFRIGERATE and SHAKE WELL Given 07/30/2023 3:34 PM EST 2 mL Knee Right lidocaine 1% 1 mL - triamcinolone acetonide 40 mg/mL 1 mL inj 2 mL 2 mL, Injection, ONCE, On Sat07/30/23 at 1615, For 1 dose, Lidocaine 1% 1mL Triamcinolone Acetonide 40 mg/mL 1 mL (Final concentration = 20 mg/mL) REFRIGERATE and SHAKE WELL Given 07/30/2023 3:34 PM EST 2 mL Knee Left documented in this encounter Advance Directives Latest [...] and were consensually agreed upon. Care Teams Analog Ic Design Engineer Relationship Specialty Start Date End Date Mario Mosquera MD [address] [place] [address] PCP - General Internal Medicine 11/09/13 documented as of this encounter
--- OUTSIDE RECORDS SUMMARY | 2023-10-04 05:23 | External Medical Summary ---
Author Name Unknown Address Unknown Organization [id number]:[facility] - [address] [facility] [address] Laboratory Report Ordering Provider Test Date Status DO BHAKTIGIRISHTEIN 06/26/2023 07:40:03 Final Observation Date Value Abnormality Reference (Units ) Status Triglyceride 06/26/2023 07:40:03 120 <=174 ( mg/dL) Final Triglyceride Reference Range s (mg/dL):
<150 Acceptable
150-174 Borderline high
175-499 High
>=500 Very high Cholesterol 06/26/2023 07:40:03 143 <200 (mg /dL) Final Total Cholesterol Reference Ranges (mg/dL):
<200 Desirable
200-239 Borderline high
>=240 High HDL 06/26/2023 07:40:03 55 >39 (mg/dL ) Final HDL Cholesterol Reference Ra nges (mg/dL):
>=60 High (Desirable)
<50 Low (Undesirable) For Females
<40 Low (Undesirable) For Males NON-HDL CHOLESTEROL 06/26/2023 07:40:03 88 <=159 (mg/dL) Final Non-HDL Cholesterol Referenc e Range (mg/dL):
<100 Target level for high risk ASCVD patient
<130 Optimal for general population
130-159 Near optimal for general population
160-189 Borderline High
190-219 High
>=220 Very High LDL, (calculated) 06/26/2023 07:40:03 64 <= 129 (mg/dL) Final LDL Cholesterol Reference Ra nges (mg/dL):
<70 Target level for high risk ASCVD patient
<100 Optimal for general population
100-129 Near optimal for general population
130-159 Borderline high
160-189 High
>=190 Very high Performing Location [facility] - [address] [facility] [address]
--- OUTSIDE RECORDS SUMMARY | 2023-10-04 05:23 | External Medical Summary ---
Author Name Unknown Address Unknown Organization [id number]:[facility] [place] [address] [place] [address] Laboratory Report Ordering Provider Test Date Status CHRIS YA 06/26/2023 07:40:03 Final Observation Date Value Abnormality Reference (Units ) Status Vitamin B12 06/26/2023 07:40:03 1328 Above high normal 232-1245 (pg/mL) Final Performing Location LAB[facility]ATORY [facility] - [address] [place] [address]
--- OUTSIDE RECORDS SUMMARY | 2023-10-04 05:23 | External Medical Summary ---
Author Name Unknown Address Unknown Organization K09:[facility] [place] [address] Laboratory Report Ordering Provider Test Date Status CHRIS YA 06/26/2023 07:40:03 Final Observation Date Value Abnormality Reference (Units ) Status SYNC LEUKOCYTES IN BLOOD BY AUTOMATED COUNT 06/26/2023 07:40:03 4.46 4.00-10.80 (K/uL) Final Segs 06/26/2023 07:40:03 65.5 40.0-75.0 (%) Final Lymphs % 06/26/2023 07:40:03 22.2 18.0-42.0 (%) Final Monos 06/26/2023 07:40:03 9.0 1.0-11.0 (%) Final Eosinophils 06/26/2023 07:40:03 3.1 0.0-6.0 (%) Final Basos 06/26/2023 07:40:03 0.2 0.0-2.0 (%) Final Absolute Segs 06/26/2023 07:40:03 2.92 1.80-7.70 (K/uL) Final Lymphs, absolute 06/26/2023 07:40:03 0.99 Below low normal 1.00-4.80 (K/ul) Final Monos, Abs 06/26/2023 07:40:03 0.40 0.00-1.10 (K/uL) Final Eos, Abs 06/26/2023 07:40:03 0.14 0.00-0.70 (K/uL) Final Basos, Abs 06/26/2023 07:40:03 0.01 0.00-0.20 (K/uL) Final Performing Location [facility] [address] [place] [address]
--- OUTSIDE RECORDS SUMMARY | 2023-10-04 05:23 | External Medical Summary | Summary of Care ---
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 Role Phone Mario Mosquera MD Primary Care Provider + Reason for Visit * Reason Comments Outpatient Testing Encounter Details Date Type Department Care Team Description 06/26/2023 Laboratory Laboratory [facility] [address] [place] [address] [facility] [address] [place] [address] HTN, goal below 140/90; Mixed hyperlipidemia; Encounter for long-term (current) use of medications Allergies No known active allergiesdocumented as of this encounter (statuses as of 06/26/2023) Medications Medication Sig Dispensed Refills Start Date End Date Status ASPIRIN 81 MG PO TABS one daily 0 Act tj B Complex Vitamins (B COMPLEX 50) TBCR Take by mouth. 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 Severe atherosclerotic plaque(s) in the descending aorta PAF (paroxysmal atrial fibrillation) High risk for fracture due to osteoporos is by DEXA scan 06/18/2016 Old AL (myocardial infarction) 2 Mixed hyperlipidemia 08/16/2009 Overview: [...] mRNA, LNP-s, No Pre serve, 2-Dose Series ([employer]berSettle) 06/17/2021,11/18/2020,10/28/2020 COVID-19, LNP-s, No Preserve , Brennan-sucrose, Ages 12+ (Pfizer) 12/22/2021 Covid-19, Mrna, Lnp-s, Pf, B ivalent, 30 Mcg, IM, 12 yrs and above (CyberSettle) 06/11/2022 H1N1 2009 Influenza, IM 10/01/2009 Pneumococcal [...] on file documented as of this encounter Plan of Treatment Upcoming Encounters Date Type Specialty Care Team Description 06/26/2023 Imaging Radiology 06/26/2023 Office Visit Rheumatology Damion Mulligan MD [address] [facility] [place] [address] 07/26/2023 Anticoagulation Pharmacy Pharmacist, [facility] [address] [place] [address] 08/22/2023 Office Visit Cardiology Noel Knapp PA-C [address] [place] [address] 12/23/2023 Office Visit Endocrinology [facility]etal Cali [facility] [address] [facility] [id number] 12/27/2023 Office Visit Internal Medicine [facility], Mario Bowman MD [address] [facility] [place] [address] Pending Results Name Type Priority Associated Diagnoses Date /Time COMPREHENSIVE METABOLIC PANEL Lab Routine HTN, goal below 140/90 Mixed hyperlipidemia 06/26/2023 7:40 AM EDT LIPID PANEL WITH DIRECT LDL IF TG IS HIGH Lab Routine HTN, goal below 140/90 Mixed hyperlipidemia 06/26/2023 7:40 AM EDT VITAMIN B12 Lab Routine Encounter for long-term (current) use of medications 06/26/2023 7:40 AM EDT MAGNESIUM Lab Routine Encounter for long-term (current) use of medications 06/26/2023 7:40 AM EDT Health Maintenance Due Date Last Done Comments *BISPHONATE OR OTHER ACCEPTABLE MEDICATION NEEDED FOR OSTEOPOROSIS (REFER TO SMARTSET #1146) 10/07/2022 COVID-19 Vaccine ( season) 2023 06/11/2022, 12/22/2021, 06/17/2021, Additional history exists DXA Scan 06/12/2023 06/12/2021, 03/09, 06/18/2016 DTaP,Tdap,and Td Vaccines (3 - Td or Tdap) 11/17/2023 11/16/2013, 01/07/1994 GFR 01/17/2024 01/16/2023, 12/2021, 07/11/2022, Additional history exists Depression Screening 06/14/2024 06/14/2023, 05/10/20 15 Albumin/Creatinine Ratio 05/23/2025 05/23/2022 Pneumococcal Vaccine: 65+ Years Completed 11/08/2015, 12/23/2013 Zoster Vaccines Completed 02/19/2020, 04/2020, 05/22/2012 COLONOSCOPY-EVERY 5 YRS AGES 18-100 Discontinued 11/07/2021, 11/07/2021, 09/07/2015, Additional history exists VITAMIN D LEVEL ONCE IN A LIFETIME-USE SMARTSET# [id number] Completed 01/16/2023, 06/20/2022, 05/23/2022, Additional history exists [...] this encounter Medical Devices Implanted Type Area Social Media Strategist Device Identifier Shelf Expiration Date Model / Serial / Lot Lens 24.0 Mx60 - [id number] - [id number] Implanted:Qty: 1 on 01/30/2018 by Russell Alaniz MD at OR [facility] Left: Eye [employer]OM[employer] : SURGICAL 07/09/2020 MX60-24.0 / [id number] / [id number] [employer]ista Hydrophobic Acrylic Intraoular Lens Implanted:Qty: 1 on 02/11/2018 by Russell Alaniz MD at OR [facility] Right: Eye [employer]OM[employer] 08/08/2020 [id number] / [id number] / [id number] documented as of this encounter Procedures Procedure Name Priority Date/Time Associated Diagnosis Comments DIFFERENTIAL, AUTOMATED Routine 06/26/2023 7:40 AM EDT HTN, goal below 140/90 CBC Routine 06/26/2023 7:40 AM EDT HTN, goal below 140/90 CBC Routine 06/26/2023 7:40 AM EDT HTN, goal below 140/90 documented in this encounter Results * (ABNORMAL) DIFFERENTIAL, AUTOMATED (06/26/2023 7:40 AM EDT) WBC 4.46 4.00 - 10.80 K/uL 06/26/2023 7:54 AM EDT [facility] [place] [facility]-02 Neutrophils % 65.5 40.0 - 75.0 % 06/26/2023 7:54 AM EDT [facility] [place] 56-02 Lymphocytes % 22.2 18.0 - 42.0 % 06/26/2023 7:54 AM EDT [facility] 56- Monocytes % 9.0 1.0 - 11.0 % 06/26/2023 7:54 AM EDT [facility] 56- Eosinophils % 3.1 0.0 - 6.0 % 06/26/2023 7:54 AM EDT [facility] 56- Basophils % 0.2 0.0 - 2.0 % 06/26/2023 7:54 AM EDT [facility] 56- Absolute Neutrophils 2.92 1.80 - 7.70 K/uL 06/26/2023 7:54 AM EDT [facility] 56- Absolute Lymphocytes 0.99(L) 1.00 - 4.80 K/ul 06/26/2023 7:54 AM EDT [facility] 56- Absolute Monocytes 0.40 0.00 - 1.10 K/uL 06/26/2023 7:54 AM EDT [facility] - Absolute Eosinophils 0.14 0.00 - 0.70 K/uL 06/26/2023 7:54 AM EDT [facility] Absolute Basophils 0.01 0.00 - 0.20 K/uL 06/26/2023 7:54 AM EDT [facility] Blood Venous blood specimen / Unknown Venipuncture / Unknown 06/26/2023 7:40 AM EDT 06/26/2023 7:40 AM EDT Mario Mosquera MD LAB BLOOD ORDERA BLES [facility] [address] [place] [address] * CBC (06/26/2023 7:40 AM EDT) WBC 4.46 4.00 - 10.80 K/uL 06/26/2023 7:54 AM EDT [facility] 56- RBC 4.68 4.50 - 5.25 M/uL 06/26/2023 7:54 AM EDT [facility] 56 HGB 14.6 14.0 - 16.8 g/dL 06/26/2023 7:54 AM EDT [facility] HCT 43.6 40.0 - 48.4 % 06/26/2023 7:54 AM EDT [facility] 56 MCV 93.2 82.0 - 99.5 fL 06/26/2023 7:54 AM EDT [facility] 56 MCH 31.2 27.0 - 34.0 pg 06/26/2023 7:54 AM EDT [facility] 56 MCHC 33.5 32.0 - 36.0 g/dL 06/26/2023 7:54 AM EDT [facility] 56 RDW 12.9 11.5 - 15.5 % 06/26/2023 7:54 AM EDT [facility] 56 PLT 165 140 - 400 K/uL 06/26/2023 7:54 AM EDT [facility] 56 MPV 10.2 6.6 - 11.1 fL 06/26/2023 7:54 AM EDT [facility] 56 Blood Venous blood specimen / Unknown Venipuncture / Unknown 06/26/2023 7:40 AM EDT 06/26/2023 7:40 AM EDT Mario Mosquera MD LAB BLOOD ORDERA BLES Performing Organization Address City/State/[facility] Co de Phone Number [facility] [address] [facility] [address] documented in this encounter Visit Diagnoses Diagnosis HTN, goal below 140/90 Unspecified essential hypertension Mixed hyperlipidemia Encounter for long-term (current) use of medications Encounter for long-term (current) use of other medications documented in this encounter Advance Directives Latest [...] and were consensually agreed upon. Care Teams Trench Pipe Layer Helper Relationship Specialty Start Date End Date [facility] [address] [facility] [address] P[facility] - General Internal Medicine 11/09/13 documented as of this encounter
--- OUTSIDE RECORDS SUMMARY | 2023-10-04 05:23 | External Medical Summary ---
Author Name Unknown Address Unknown Organization K09:[facility] [place] [address] Laboratory Report Ordering Provider Test Date Status DEV DASH V 06/14/2023 08:11:00 Final Therapeutic ranges for non-o perative patients:
Prophylaxsis/treatment of DVT: (Range:2.0-3.0)
Treatment of pulmonary embolism:(Range:2.0-3.0)
Prevention of systemic embolism from:
-tissue heart valves
-acute myocardial infarction
-valvular heart disease
-atrial fibrillation
(Range: 2.0-3.0)
Mechanical prosthetic valves: (Range: 2.5-3.5) Observation Date Value Abnormality Reference (Units ) Status INR in Capillary blood by Coagulation assay 06/14/2023 08:11:00 2.1 (INR) Final Performing Location [facility] [place] [id number]
--- OUTSIDE RECORDS SUMMARY | 2023-10-04 05:23 | External Medical Summary | Summary of Care ---
Author Name Unknown Organization [facility] Address [address] [place] [address] Phone [phone] Care Team Providers Care Associate Merchant Name Role Phone Mario Mosquera MD Primary Care Provider + Reason for Visit * Reason Onset Date Comments Follow Up The pt stated he is here for a 6 month follow up appointment Medication Administration 06/14/2023 Flu an d/or Pneumo Inj Encounter Details Date Type Department Care Team Description 06/14/2023 Office Visit General Internal Medicine [facility] [address] [place] [address] Mario Mosquera MD [address] [place] [address] HTN, goal below 140/90*; Coronary artery disease involving [place] coronary artery of [place] heart without angina pectoris; Need for prophylactic vaccination and inoculation against influenza; Mixed hyperlipidemia; Encounter for long-term (current) use of medications; High risk for fracture due to osteoporosis by DEXA scan; Stenosis of right subclavian artery (HCC); Parathyroid abnormality (HCC); Senile osteoporosis; Lupus anticoagulant disorder (HCC) Allergies No known active allergiesdocumented as of this encounter (statuses as of 06/14/2023) Medications Medication Sig Dispensed Refills Start Date [...] as of this encounter (statuses as of 06/14/2023) Active Problems Problem Noted Date Stenosis of right subclavian artery 11/07 Senile osteoporosis 08/30/2021 Chronic kidney disease, stage 3 unspecif ied 10/24/2020 Diastolic dysfunction 11/03/2018 THERESA (obstructive sleep apnea) 11/20/2017 Parathyroid abnormality 08/19/2017 Lupus anticoagulant disorder 10/17/2016 detention current use of anticoagulant t herapy 10/01/2016 Overview: ICD-10 update of inactive term 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 Severe atherosclerotic plaque(s) in the descending aorta PAF (paroxysmal atrial fibrillation) High risk for fracture due to osteoporos is by DEXA scan 06/18/2016 Old GA (myocardial infarction) 2 Mixed hyperlipidemia 08/16/2009 Overview: [...] as of this encounter (statuses as of 06/14/2023) Resolved Problems Problem Noted Date Resolved Date [...] as of this encounter (statuses as of 06/14/2023) Immunizations Name Administration Dates Next Due COVID-19 mRNA, LNP-s, No Pre serve, 2-Dose Series ([employer]) 06/17/2021,11/18/2020,10/28/2020 COVID-19, LNP-s, No Preserve , Brennan-sucrose, Ages 12+ (Pfizer) 12/22/2021 Covid-19, Mrna, Lnp-s, Pf, B ivalent, 30 Mcg, IM, 12 yrs and above ([employer]) 06/11/2022 H1N1 2009 Influenza, IM 10/01/2009 Pneumococcal [...] Sign Reading Time Taken Comments Blood Pressure 134/62 06/14/2023 8:31 AM EDT Pulse 50 06/14/2023 8:31 AM EDT Temperature 36.2 C (97.2 F) 06/14/2023 8:31 AM ED T Respiratory Rate - - Oxygen Saturation 97% 06/14/2023 8:31 AM EDT Inhaled Oxygen Concentration - - Weight 63 kg (138 lb 14.4 oz) 06/14/2023 8:31 AM EDT Height - - Body Mass Index 23.11 12/19/2022 12:30 PM EDT documented in this encounter Progress Notes * Mario Mosquera MD - 06/14/2023 9:01 AM EDT Chief Complaint Patient presents with Follow Up The pt stated he is here for a 6 month follow up appointment Medication Administration Flu and/or Pneumo Inj SUBJECTIVE: Andrew Reardon is a 77 year old male with PMH as below who presents for follow up HTN, parathyroid, osteoporosis, lipids. No cp, sob, barry. Feels good. Active on property, hikes in [place], picks apples. Sees endocrine for parathyroid issues. Mood is good. 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 detention current use of anticoagulant therapy Z79.01 Lupus anticoagulant disorder ([facility]) D68.62 Parathyroid abnormality ([facility]) E21.5 THERESA (obstructive sleep apnea) G47.33 Diastolic dysfunction I51.89 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 Review of patient's allergies indicates: No Known Allergies Health Maintenance Due Topic Date Due *BISPHONATE OR OTHER ACCEPTABLE MEDICATION NEEDED FOR OSTEOPOROSIS (REFER TO SMARTSET #1146) Never done COVID-19 Vaccine ( season) 2023 Depression Screening 05/22/2023 DXA Scan 06/12/2023 ROS: CONSTITUTIONAL: No change in weight, No weakness, and No fevers, sweats, or chills EYE: No recent significant change in vision and No eye pain, redness, discharge EARS: No ear pain, No drainage, No tinnitus or vertigo, and No recent change in hearing MOUTH: No bleeding gums, No thrush, or No sore throat PULMONARY: No cough, sputum, or hemoptysis, No wheezing, No rales, No shortness of breath, and No recent change in breathing CARDIOVASCULAR: No chest pain, No shortness of breath, No dyspnea on exertion, No orthopnea, No paroxysmal nocturnal dyspnea, No edema, No palpitations, and No syncope GASTROINTESTINAL: No abdominal pain, No change in bowel habits, No significant heartburn, No significant change in appetite, No nausea, vomiting, diarrhea, or constipation, No hematemesis, No blood in stools or black tarry stools, No abdominal bloating or early satiety, and No dysphagia ALL OTHER SYSTEMS NEGATIVE I reviewed social, PMH, PSH, and family history and updated where needed. 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 Comment: [employer] Tobacco Use Smoking status: Former Packs/day: 0.50 Years: 55.00 Pack years: 27.50 Types: Cigarettes Quit date: 09/24/2005 Years since quittin.7 Smokeless tobacco: Never Vaping Use Vaping Use: Never used Substance and Sexual Activity Alcohol use: Yes Alcohol/week: 8.3 standard drinks Types: 10 12 oz of beer per week Comment: about 2 drinks daily Drug use: No Sexual activity: Yes Other Topics Concern Not on file Social History Narrative Not on file Social Determinants of Health Financial Resource Strain: Not on file Food Insecurity: No Food Insecurity Worried About Running Out of Food in the Last Year: Never true Ran Out of Food in the Last Year: Never true Transportation Needs: Not on file Physical Activity: Not on file Stress: Not on file Social Connections: Not on file Intimate Partner Violence: Not on file Housing Stability: Not on file Past Medical History: Diagnosis Date Adverse reaction to DAYSI inhibitor drug 03/17/2020 CAD (coronary artery disease) Diastolic CHF (HCC) 12/28/2015 Diastolic dysfunction 11/03/2018 Dyslipidemia, goal LDL below 100 08/16/2009 Per Lipid Taxonomy. Hereditary and idiopathic peripheral neuropathy High risk for fracture due to osteoporosis by DEXA scan 06/18/2016 HTN, goal below 140/90 01/17/2007 Infarction of kidney (HCC) 12/18/2017 Old GA (myocardial infarction) 06/06/2012 Osteoporosis 06/18/2016 Pre-diabetes 01/07/2020 Reflux esophagitis 01/17/2007 Renal infarct (HCC) 01/09/2017 Splenic infarct 2017 Stenosis of right subclavian artery (HCC) 11/17/2021 Past Surgical History: Procedure Laterality Date CARPAL TUNNEL SURGERY Right 2018 Dr. larsen CATARACT SURGERY,COMPLEX Bilateral 2018 COLONOSCOPY, DIAGNOSTIC (RECTUM) 09/07/2015 adenomatous polyp, diverticulosis, repeat 5 yrs/COLONOSCOPY FLEXIBLE PROXIMAL DIAGNOSTIC performed by Vinicio Alarcon MD at ENDOSCOPY [facility] COLONOSCOPY, DIAGNOSTIC (RECTUM) 11/07/2021 diverticulosis / COLONOSCOPY FLEXIBLE PROXIMAL DIAGNOSTIC performed by Vinicio Alarcon MD at ENDOSCOPY [facility] REMOVE CATARACT, INSERT LENS PROSTH Left 01/30/2018 left EXTRACAPSULAR CATARACT REMOVAL WITH INTRAOCULAR LENS performed by Russell Alaniz MD at OR [facility] REMOVE CATARACT, INSERT LENS PROSTH Right 02/11/2018 right EXTRACAPSULAR CATARACT REMOVAL WITH INTRAOCULAR LENS performed by Russell Alaniz MD at OR [facility] TOTAL HIP REPLACEMENT EDU. Right 2001 [facility] Family History Problem Relation Age of Onset Heart Disorder Mother Hypertension Mother Stroke Mother Musculo-skeletal Disorder Mother osteoporosis - hip fracture Osteoporosis Mother hip fracture Heart Disorder Father Hypertension Father Diabetes Father Diabetes Grandmother (Paternal) Cancer Son mouth OBJECTIVE: PHYSICAL EXAM: BP 134/62 | Pulse 50 | Temp 36.2 C (97.2 F) | Wt 63 kg (138 lb 14.4 oz) | SpO2 97% | BMI 23.11 kg/m | BSA 1.7 m General: alert, healthy, and no distress Head: Normocephalic, No masses, lesions, or abnormalities Eye Exam: conjunctiva are pink and non-injected, sclera clear Ears: External ears normal, Canals clear, TM's Normal Heart: regular rate & rhythm, no murmur, no gallops, PMI non-displaced, S-1 normal, and S-2 normal Lungs: normal respiratory rate and rhythm, lungs clear to auscultation Psych: normal affect, no flight of ideas or tangential thought, good eye contact, no pressured speech ASSESSMENT: I10 HTN, goal below 140/90 (primary encounter diagnosis) I25.10 Coronary artery disease involving [place] coronary artery of [place] heart without angina pectoris Z23 Need for prophylactic vaccination and inoculation against influenza E78.2 Mixed hyperlipidemia Z79.899 Encounter for long-term (current) use of medications M81.0 High risk for fracture due to osteoporosis by DEXA scan I77.1 Stenosis of right subclavian artery (HCC) E21.5 Parathyroid abnormality (HCC) M81.0 Senile osteoporosis D68.62 Lupus anticoagulant disorder (HCC) PLAN: HTN, goal below 140/90 (Primary) - COMPREHENSIVE METABOLIC PANEL; Future; Expected date: 06/14/2023 - LIPID PANEL WITH DIRECT LDL IF TG IS HIGH; Future; Expected date: 06/14/2023 - CBC WITH WBC DIFFERENTIAL; Future; Expected date: 06/14/2023 Cont amlodipine, metoprolol, imdur, lisinopril Coronary artery disease involving [place] coronary artery of [place] heart without angina pectoris Sees cardiology Cont med No symptoms Need for prophylactic vaccination and inoculation against influenza - INFLUENZA VACC, QUAD, HIGH DOSE (FLUZONE HD) Mixed hyperlipidemia - COMPREHENSIVE METABOLIC PANEL; Future; Expected date: 06/14/2023 - LIPID PANEL WITH DIRECT LDL IF TG IS HIGH; Future; Expected date: 06/14/2023 Cont ezetimibe, crestor Encounter for long-term (current) use of medications - VITAMIN B12; Future; Expected date: 06/14/2023 - MAGNESIUM; Future; Expected date: 06/14/2023 High risk for fracture due to osteoporosis by DEXA scan Cont infusion per hiroc Stenosis of right subclavian artery (HCC) Follow for symptoms Parathyroid abnormality (HCC) Sees endocrine Senile osteoporosis As above Lupus anticoagulant disorder (HCC) Cont coumadin Follow Up: Return in about 6 months (around 12/14/2023), or if symptoms worsen or fail to improve, for Fasting Labs Soon. | For: Fasting Labs Soon Mario Mosquera MD * Maurizio Peters LPN - 06/14/2023 8:34 AM EDT PRE - ADMINISTRATION DOCUMENTATION Are you experiencing any cold symptoms or fever? No Have you had Guillain-Sheridan Syndrome (an illness that causes paralysis) within the last 6 weeks? No Have you had the flu shot in the past? YES Have you ever had a reaction to the flu shot? No Maurizio Peters LPN, 06/14/2023 8:34 AM Immunization Administration Documentation Time Out Procedure Performed: Yes Patient Identified (Ask Name/Date of ): Yes Does the patient have a fever greater than 101 degrees today? No Patient allergic to latex? No C Stock: No Immunization(s) verified: Yes, Immunization Name: Flu, VIS Sheet(s) given: Yes Verified Side and Site: Yes Verified Shot(s) with Parent(s)/Patient: Yes documented in this encounter Nursing Notes * Maurizio Peters LPN - 06/14/2023 8:31 AM EDT Chief Complaint Patient presents with Follow Up The pt stated he is here for a 6 month follow up appointment documented in this encounter Plan of Treatment Upcoming Encounters Date Type Specialty Care Team Description 06/26/2023 Imaging Radiology 06/26/2023 Office Visit [facility] [address] [facility] [address] 07/26/2023 Anticoagulation Pharmacy Pharmacist1, [facility] [address] [facility] [address] 08/22/2023 Office Visit Cardiology Noel Knapp PA-C [address] [place] [address] 12/23/2023 Office Visit Endocrinology Hetal Cali MD [address] [place] [address] 12/27/2023 Office Visit Internal Medicine [facility] [address] [facility] [address] Scheduled Orders Name Type Priority Associated Diagnoses Orde r Schedule COMPREHENSIVE METABOLIC PANEL Lab Routine HTN, goal below 140/90 Mixed hyperlipidemia Expected: 06/14/2023 (Approximate), Expires: 06/13/2024 LIPID PANEL WITH DIRECT LDL IF TG IS HIGH Lab Routine HTN, goal below 140/90 Mixed hyperlipidemia Expected: 06/14/2023, Expires: 06/14/2024 VITAMIN B12 Lab Routine Encounter for long-term (current) use of medications Expected: 06/14/2023 (Approximate), Expires: 06/13/2024 MAGNESIUM Lab Routine Encounter for long-term (current) use of medications Expected: 06/14/2023 (Approximate), Expires: 06/13/2024 CBC WITH WBC DIFFERENTIAL Lab Routine HTN, goal below 140/90 Expected: 06/14/2023 (Approximate), Expires: 06/14/2024 Health Maintenance Due Date Last Done Comments *BISPHONATE OR OTHER ACCEPTABLE MEDICATION NEEDED FOR OSTEOPOROSIS (REFER TO SMARTSET #1146) 10/07/2022 COVID-19 Vaccine ( season) 2023 06/11/2022, 12/22/2021, 06/17/2021, Additional history exists Depression Screening 05/22/2023 06/14/2023, 05/10/20 15 DXA Scan 06/12/2023 06/12/2021, 03/09, 06/18/2016 DTaP,Tdap,and Td Vaccines (3 - Td or Tdap) 11/17/2023 11/16/2013, 01/07/1994 GFR 01/17/2024 01/16/2023, 12/2021, 07/11/2022, Additional history exists Albumin/Creatinine Ratio 05/23/2025 05/23/2022 Pneumococcal Vaccine: 65+ Years Completed 11/08/2015, 12/23/2013 Zoster Vaccines Completed 02/19/2020, 04/2020, 05/22/2012 COLONOSCOPY-EVERY 5 YRS AGES 18-100 Discontinued 11/07/2021, 11/07/2021, 09/07/2015, Additional history exists VITAMIN D LEVEL ONCE IN A LIFETIME-USE SMARTSET# 67521 Completed 01/16/2023, 06/20/2022, 05/23/2022, Additional history exists [...] this encounter Medical Devices Implanted Type Area Mold Polisher Device Identifier Shelf Expiration Date Model / Serial / Lot Lens 24.0 Mx60 - [id number] - [id number] Implanted:Qty: 1 on 01/30/2018 by Russell Alaniz MD at OR [facility] Left: Eye [employer] : SURGICAL 07/09/2020 MX60-24.0 / [id number] / [id number] [employer]ista Hydrophobic Acrylic Intraoular Lens Implanted:Qty: 1 on 02/11/2018 by Russell Alaniz MD at OR [facility] Right: Eye [employer] 08/08/2020 [id number] / [id number] / [id number] documented as of this encounter Visit Diagnoses Diagnosis HTN, goal below 140/90- Primary Unspecified essential hypertension Coronary artery disease involving [place] coronary artery of [place] heart without angina pectoris Need for prophylactic vaccination and inoculation against influenza Mixed hyperlipidemia Encounter for long-term (current) use of medications Encounter for long-term (current) use of other medications High risk for fracture due to osteoporosis by DEXA scan Osteoporosis, unspecified Stenosis of right subclavian artery (HCC) Atherosclerosis of other specified arteries Parathyroid abnormality (HCC) Unspecified disorder of parathyroid gland Senile osteoporosis Lupus anticoagulant disorder (HCC) Primary hypercoagulable state documented in this encounter Advance Directives Latest [...] and were consensually agreed upon. Care Teams Associate Merchant Relationship Specialty Start Date End Date Mario Mosquera MD [address] [place] [address], [place] [address] PCP - General Internal Medicine 11/09/13 documented as of this encounter"
--- OUTSIDE RECORDS SUMMARY | 2023-10-04 05:23 | External Medical Summary ---
Author Name Unknown Address Unknown Organization K09:[facility] [place] [address] Laboratory Report Ordering Provider Test Date Status CHRIS YA 06/26/2023 07:40:03 Final Observation Date Value Abnormality Reference (Units ) Status Magnesium 06/26/2023 07:40:03 2.1 1.5-2.6 (m g/dL) Final Performing Location [facility] [place] [address]
--- OUTSIDE RECORDS SUMMARY | 2023-10-04 05:23 | External Medical Summary | Summary of Care ---
Author Name Unknown Organization [facility] Address [address] [place] [address] Phone [phone] Care Team Providers Care Professional Model Name Role Phone Mario Mosquera MD Primary Care Provider + Reason for Visit * Reason Comments Dosage Adjustment In Person (Anticoag Cl inic) Encounter Details Date Type Department Care Team Description 06/14/2023 Anticoagulation Pharmacy, [facility] [address] [place] [address] Pharmacist1, [facility] [address] [facility] [place] [address] PAF (paroxysmal atrial fibrillation) (HCC)*; Lupus anticoagulant disorder (HCC); Anticoagulation management encounter; longterm current use of anticoagulant therapy Allergies No [...] kidney disease, stage 3 unspecif ied 10/24/2020 Adverse reaction to DAYSI inhibitor drug 0 03/17/2020 Overview: AMY with salmonella posioning as well Diastolic dysfunction 11/03/2018 THERESA (obstructive sleep apnea) 11/20/2017 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 Severe atherosclerotic plaque(s) in the descending aorta PAF (paroxysmal atrial fibrillation) High risk for fracture due to osteoporos is by DEXA scan 06/18/2016 Old [place] (myocardial infarction) 2 Mixed hyperlipidemia 08/16/2009 Overview: [...] Chronic kidney disease, stage 3 unspecified 10/1001/19/2021 Pre-diabetes 01/07/2020 07/26/2022 Other atherosclerosis of bere [...] 06/18/2016 08/19/2017 Diastolic CHF 12/28/2015 11/03/2018 Acute [place] 05/30/2012 06/06/2012 Chronic ischemic heart disease 01/17/2007 0 12/25/2018 Pneumonia due to organism 2013 Overview: ICD-10 update of inactive term IDIO PERIPH NEURPTHY NOS 018 PURE HYPERCHOLESTEROLEM 08/16/20 09 Overview: Per Lipid Taxonomy. documented as of this encounter (statuses as of 06/14/2023) Immunizations Name Administration Dates Next Due COVID-19 mRNA, LNP-s, No Pre serve, 2-Dose Series ([employer]box) 06/17/2021,11/18/2020,10/28/2020 COVID-19, LNP-s, No Preserve , Brennan-sucrose, Ages 12+ (Pfizer) 12/22/2021 Covid-19, Mrna, Lnp-s, Pf, B ivalent, 30 Mcg, IM, 12 yrs and above (Planbox) 06/11/2022 H1N1 2009 Influenza, IM 10/01/2009 Pneumococcal Conjugate Vacc, 13 Valent (Prevnar) 11/08/2015 Pneumococcal Conjugate Vaccine, 7 Valent 010 Pneumococcal Polysaccharide PPV23 (Pneumovax) 12/23/2013 SEASONAL INFLUENZA, PF, 6 M & Above, IM , (FLULAVAL or FLUZONE) 06/03/2020,06/19/2018 Seasonal Influenza, Quadriva lent Hd (Fluzone Hd) 05/22/2022,05/24/2021 Seasonal Influenza, Quadriva lent, No Preserve, IM [...] of this encounter Progress Notes * Anthony Cruz RPh - 06/14/2023 8:13 AM EDT Medication Therapy Disease Management - Anticoagulation Andrew Reardon 1945 Description Needs reduced dose on doxycyline Patient Findings Negatives: Signs/symptoms of thrombosis, Signs/symptoms of bleeding, Change in health, Change in alcohol use, Change in activity, Upcoming invasive procedure, Missed doses, Extra doses, Change in medications, Change in diet/appetite, Bruising INR Result As of 06/14/2023 INR goal: 2.0-3.0 INR used for dosin.1 (06/14/2023) Warfarin Plan As of 06/14/2023 Full warfarin instructions: 2.5 mg every Sun, Tue, Katherine; 1 mg all other days No change documented: Anthony Cruz RPh Next INR check: 07/26/2023 Repeat PT/INR in 6 week(s) Weekly dose: not changed Anthony Goins RPh, CACP, CDE Clinical Pharmacist Medication Therapy Management [facility] 06/14/2023 8:13 AM documented in this encounter Plan of Treatment Upcoming Encounters Date Type Specialty Care Team Description 06/14/2023 Office Visit Internal Medicine Mario Mosquera MD [address] [place] [address] PRE - ADMINISTRATION DOCUMENTATION 06/26/2023 Imaging Radiology 06/26/2023 Office Visit Rheumatology Damion Mulligan MD [address] [place] [address] 07/26/2023 Anticoagulation Pharmacy Pharmacist, [facility] [address] [place] [address] 08/22/2023 Office Visit Cardiology Noel Knapp PA-C [address] [place] [address] 12/23/2023 Office Visit Endocrinology Hetal Cali MD [address] [place] [address] Scheduled Orders Name Type Priority Associated Diagnoses Orde r Schedule INR FINGERSTICK, POINT OF CARE Point of Care Testing - Unsolicited Results STAT PAF (paroxysmal atrial fibrillation) (HCC) Lupus anticoagulant disorder (HCC) Anticoagulation management encounter longterm current use of anticoagulant therapy Every 2 Weeks for 26 Occurrences starting 06/14/2023 until 06/14/2024, 1 completed Health Maintenance Due Date Last Done Comments *BISPHONATE OR OTHER ACCEPTABLE MEDICATION NEEDED FOR OSTEOPOROSIS (REFER TO SMARTSET #1146) 10/07/2022 COVID-19 Vaccine ( season) 2023 06/11/2022, 12/22/2021, 06/17/2021, Additional history exists Influenza Vaccine (FLU shot) (#1) 2023 05/22/2022, 05/24/2021, 06/03/2020, Additional history exists Depression Screening 05/22/2023 05/22/2022, 05/10/20 15 DXA Scan 06/12/2023 06/12/2021, 03/09, [...] D LEVEL ONCE IN A LIFETIME-USE SMARTSET# 75773 Completed 01/16/2023, 06/20/2022, 05/23/2022, Additional history exists GARDASIL-HPV IMMUNIZATION SERIES Aged Out No longer eligible based on patient's age to complete this topic Hepatitis B Aged Out No longer eligi ble based on patient's age to complete this topic MENINGOCOCCAL (MENACTRA/MENVEO) Aged Out No longer eligible based on patient's age to complete this topic documented as of this encounter Medical Devices Implanted Type Area Precision Agriculture Specialist Device Identifier Shelf Expiration Date Model / Serial / Lot Lens 24.0 Mx60 - [id number] - [id number] Implanted:Qty: 1 on 01/30/2018 by Russell Alaniz MD at OR [facility] Left: Eye [employer] LOMB : SURGICAL 07/09/2020 MX60-24.0 / [id number] / [id number] Envista Hydrophobic Acrylic Intraoular Lens Implanted:Qty: 1 on 02/11/2018 by Russell Alnaiz MD at OR [facility] Right: Eye [employer] LOMB 08/08/2020 [id number] / [id number] / [id number] documented as of this encounter Procedures Procedure Name Priority Date/Time Associated Diagnosis Comments INR FINGERSTICK, POINT OF CARE STAT 06/14/2023 8:11 AM EDT PAF (paroxysmal atrial fibrillation) (HCC) Lupus anticoagulant disorder (HCC) Anticoagulation management encounter 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 documented in this encounter Results * INR FINGERSTICK, POINT OF CARE (06/14/2023 8:11 AM EDT) Fingerstick INR 2.1 INR 8:17 AM EDT [facility] 56-02 Blood 06/14/2023 8:11 AM EDT 06/14/2023 8:17 AM EDT Narrative [facility] 56-02 - 06/14/2023 8:17 AM EDT Therapeutic ranges for non-operative patients: Prophylaxsis/treatment of DVT: (Range:2.0-3.0) Treatment of pulmonary embolism:(Range:2.0-3.0) Prevention of systemic embolism from: -tissue heart valves -acute myocardial infarction -valvular heart disease -atrial fibrillation (Range: 2.0-3.0) Mechanical prosthetic valves: (Range: 2.5-3.5) Anthony Goins V, [facility] LAB POINT OF CARE TE ST DOCKED DEVICE UNSOLICITED RESULTS [facility] [address] [place] [phone] documented in this encounter Visit Diagnoses Diagnosis PAF (paroxysmal atrial fibrillation) (HCC)- Primary Atrial fibrillation Lupus anticoagulant disorder (HCC) Primary hypercoagulable state Anticoagulation management encounter Encounter for therapeutic drug monitoring 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 Care Teams Professional Model Relationship Specialty Start Date End Date Mario Mosquera MD [address] [place] [address] PCP - General Internal Medicine 11/09/13 documented as of this encounter
--- OUTSIDE RECORDS SUMMARY | 2023-10-04 05:23 | External Medical Summary | Summary of Care ---
Author Name Unknown Organization [facility] Address [address] [place] [address] Phone [phone] Care Team Providers Care Home Health Clinical Liaison Name Role Phone Mario Mosquera MD Primary Care Provider + Reason for Visit * Reason Comments Dosage Adjustment In Person (Anticoag Cl inic) Encounter Details Date Type Department Care Team Description 05/22/2023 Anticoagulation Pharmacy, [facility] [address] [facility] [place] [address] Pharmacist1, [facility] [address] [facility] [place] [address] PAF (paroxysmal atrial fibrillation) (HCC)*; Lupus anticoagulant disorder (HCC); Anticoagulation management encounter; halfway current use of anticoagulant therapy Allergies No known active allergiesdocumented as of this encounter (statuses as of 05/22/2023) Medications Medication Sig Dispensed Refills Start Date [...] as of this encounter (statuses as of 05/22/2023) Active Problems Problem Noted Date Stenosis of right subclavian artery 11/07 Senile osteoporosis 08/30/2021 Chronic kidney disease, stage 3 unspecif ied 10/24/2020 Adverse reaction to DAYSI inhibitor drug 0 03/17/2020 Overview: AMY with salmonella posioning as well Diastolic dysfunction 11/03/2018 THERESA (obstructive sleep apnea) 11/20/2017 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 Severe atherosclerotic plaque(s) in the descending aorta PAF (paroxysmal atrial fibrillation) High risk for fracture due to osteoporos is by DEXA scan 06/18/2016 Old [place] (myocardial infarction) 2 Mixed hyperlipidemia 08/16/2009 Overview: [...] as of this encounter (statuses as of 05/22/2023) Resolved Problems Problem Noted Date Resolved Date [...] 06/18/2016 08/19/2017 Diastolic CHF 12/28/2015 11/03/2018 Acute ND 05/30/2012 06/06/2012 Chronic ischemic heart disease 01/17/2007 0 12/25/2018 Pneumonia due to organism 2013 Overview: ICD-10 update of inactive term IDIO PERIPH NEURPTHY NOS 018 PURE HYPERCHOLESTEROLEM 08/16/20 09 Overview: Per Lipid Taxonomy. documented as of this encounter (statuses as of 05/22/2023) Immunizations Name Administration Dates Next Due COVID-19 mRNA, LNP-s, No Pre serve, 2-Dose Series ([employer]) 06/17/2021,11/18/2020,10/28/2020 COVID-19, LNP-s, No Preserve , Brennan-sucrose, Ages 12+ (Pfizer) 12/22/2021 Covid-19, Mrna, Lnp-s, Pf, B ivalent, 30 Mcg, IM, 12 yrs and above ([employer]) 06/11/2022 H1N1 2009 Influenza, IM 10/01/2009 Pneumococcal Conjugate Vacc, 13 Valent (Prevnar) 11/08/2015 Pneumococcal Conjugate Vaccine, 7 Valent 010 Pneumococcal Polysaccharide PPV23 (Pneumovax) 12/23/2013 Seasonal Influenza, PF, 6 mo ns & Above, IM , (Flulaval) 06/03/2020,06/19/2018 Seasonal Influenza, Quadriva lent Hd (Fluzone [...] as of this encounter Progress Notes * Anhtony Goins V, [facility] - 05/22/2023 7:40 AM EDT Images from the original note were not included. Medication Therapy Disease Management - Anticoagulation Andrew Reardon 1945 Description Needs reduced dose on doxycyline Patient Findings Negatives: Signs/symptoms of thrombosis, Signs/symptoms of bleeding, Change in health, Change in alcohol use, Change in activity, Upcoming invasive procedure, Missed doses, Extra doses, Change in medications, Change in diet/appetite, Bruising INR Result As of 05/22/2023 INR goal: 2.0-3.0 INR used for dosin.5 (05/22/2023) Warfarin Plan As of 05/22/2023 Full warfarin instructions: 05/22: Hold; 05/23: 1 mg; Otherwise 2.5 mg every Sat, Sat, Katherine; 1 mg all other days Next INR check: 06/14/2023 Repeat PT/INR in 3 week(s) Weekly dose: not changed Anthony Goins RPh, CACP, CDE Clinical Pharmacist Medication Therapy Management Clinic 05/22/2023 7:47 AM documented in this encounter Plan of Treatment Upcoming Encounters Date Type Specialty Care Team Description 06/14/2023 Anticoagulation Pharmacy Pharmacist1, [facility] [address] [place] [address] 06/14/2023 Office Visit Internal Medicine Mario Mosquera MD [address] [place] [address] 06/26/2023 Imaging Radiology 06/26/2023 Office Visit Rheumatology Damion Mulligan MD [address] [place] [address] 08/22/2023 Office Visit Cardiology Noel Knapp PA-C [address] [place] [address] 12/23/2023 Office Visit Endocrinology Hetal Cali MD [address] [place] [address] Health Maintenance Due Date Last Done Comments *BISPHONATE OR OTHER ACCEPTABLE MEDICATION NEEDED FOR OSTEOPOROSIS (REFER TO SMARTSET #1146) 10/07/2022 Influenza Vaccine (FLU shot) (#1) 2023 05/22/2022, [...] Discontinued 11/07/2021, 11/07/2021, 09/07/2015, Additional history exists Hepatitis C Screening Completed 05/23/2022 , 05/23/2022, 05/23/2022 COVID-19 Vaccine Completed 06/11/2022, , 06/17/2021, Additional history exists VITAMIN D LEVEL ONCE IN A LIFETIME-USE SMARTSET# 66039 Completed 01/16/2023, 06/20/2022, 05/23/2022, Additional history exists [...] this encounter Medical Devices Implanted Type Area Elevator Technician Device Identifier Shelf Expiration Date Model / Serial / Lot Lens 24.0 Mx60 - [id number] - [id number] Implanted:Qty: 1 on 01/30/2018 by Russell Alaniz MD at OR [facility] Left: Eye [employer]CH [employer] LOMB : SURGICAL 07/09/2020 MX60-24.0 / [id number] / [id number] Envista Hydrophobic Acrylic Intraoular Lens Implanted:Qty: 1 on 02/11/2018 by Russell Alaniz MD at OR [facility] Right: Eye BA[employer]CH [employer] LOMB 08/08/2020 [id number] / [id number] / [id number] documented as of this encounter Procedures Procedure Name Priority Date/Time Associated Diagnosis Comments INR FINGERSTICK, POINT OF CARE STAT 05/22/2023 7:44 AM EDT Lupus anticoagulant disorder (HCC) PAF (paroxysmal atrial fibrillation) (HCC) Anticoagulation management encounter halfway current use of anticoagulant therapy documented in this encounter Results * INR FINGERSTICK, POINT OF CARE (05/22/2023 7:44 AM EDT) Fingerstick INR 4.5 INR 8:26 AM EDT [facility] 56-02 Blood 05/22/2023 7:44 AM EDT 05/22/2023 8:26 AM EDT Narrative [facility] 56-02 - 05/22/2023 8:26 AM EDT Therapeutic ranges for non-operative patients: Prophylaxsis/treatment of DVT: (Range:2.0-3.0) Treatment of pulmonary embolism:(Range:2.0-3.0) Prevention of systemic embolism from: -tissue heart valves -acute myocardial infarction -valvular heart disease -atrial fibrillation (Range: 2.0-3.0) Mechanical prosthetic valves: (Range: 2.5-3.5) Anthony Buster V, RPh LAB POINT OF CARE TE ST DOCKED DEVICE UNSOLICITED RESULTS [facility] 56-[address] [facility], [place] [address] documented in this encounter Visit Diagnoses Diagnosis PAF (paroxysmal atrial fibrillation) (HCC)- Primary Atrial fibrillation Lupus anticoagulant disorder (HCC) Primary hypercoagulable state Anticoagulation management encounter Encounter for therapeutic drug monitoring halfway current use of anticoagulant therapy documented in [...] and were consensually agreed upon. Care Teams Home Health Clinical Liaison Relationship Specialty Start Date End Date [facility] [address] [facility] [address] PCP - General Internal Medicine 11/09/13 documented as of this encounter
--- OUTSIDE RECORDS SUMMARY | 2023-10-04 05:23 | External Medical Summary ---
Author Name Unknown Address Unknown Organization K09:[facility] [place] [address] Laboratory Report Ordering Provider Test Date Status DO BHAKTIGIRISHHAZEL 06/26/2023 07:40:03 Final Observation Date Value Abnormality Reference (Units ) Status WBC, Total 06/26/2023 07:40:03 4.46 4.00-10.8 0 (K/uL) Final RBC 06/26/2023 07:40:03 4.68 4.50-5.25 (M/uL) Final Hemoglobin 06/26/2023 07:40:03 14.6 14.0-16.8 (g/dL) Final HCT 06/26/2023 07:40:03 43.6 40.0-48.4 (%) Final MCV 06/26/2023 07:40:03 93.2 82.0-99.5 (fL) Final MCH 06/26/2023 07:40:03 31.2 27.0-34.0 (pg) Final MCHC 06/26/2023 07:40:03 33.5 32.0-36.0 (g/dL) Final RDW 06/26/2023 07:40:03 12.9 11.5-15.5 (%) Final Platelets 06/26/2023 07:40:03 165 140-400 (K /uL) Final MPV 06/26/2023 07:40:03 10.2 6.6-11.1 ( fL) Final Performing Location [facility] [place] [address]
--- OUTSIDE RECORDS SUMMARY | 2023-10-04 05:23 | External Medical Summary ---
Author Name Unknown Address Unknown Organization K01:LABORATORY [facility] [place] - [address] [place] [address] Laboratory Report Ordering Provider Test Date Status NIKUNJ CHANDLER 06/26/2023 07:40:03 Final Deficient: <20 ng/mL
Ins ufficient: 20-29 ng/mL
Recommended/Optimum:30-50 ng/mL

Vitamin D intoxication is rare. If suspicious of Vitamin D toxicity, evaluation of serum Calcium and PTH is recommended. Observation Date Value Abnormality Reference (Units ) Status 25-OH Vitamin D total 06/26/2023 07:40:03 30 >19 (ng/mL) Final Performing Location LABORATORY [facility] [place] - [address] [place] [address]
--- OUTSIDE RECORDS SUMMARY | 2023-10-04 05:23 | External Medical Summary ---
Author Name Unknown Address Unknown Organization K09:LABORATORY [facility] - [address] [place] [address] Laboratory Report Ordering Provider Test Date Status CHRIS YA 06/26/2023 07:40:03 Final Observation Date Value Abnormality Reference (Units ) Status BUN 06/26/2023 07:40:03 7 6-20 (mg/dL) Final Creatinine 06/26/2023 07:40:03 0.9 0.6-1.2 (mg/dL) Final Glomerular filtration rate/1.73 sq M.predicted [Volume Rate/Area] in Serum, Plasma or Blood by Creatinine-based formula (CKD-EPI) 06/26/2023 07:40:03 86 >=60 (mL/min) Final eGFR is calculated based on the CKD-EPI 2020 equation SODIUM 06/26/2023 07:40:03 141 135-146 (m mol/L) Final Potassium 06/26/2023 07:40:03 4.3 3.5-5.1 (m mol/L) Final Cl 06/26/2023 07:40:03 104 98-107 (mm ol/L) Final CO2 06/26/2023 07:40:03 27 22-32 (mmo l/L) Final Anion gap 06/26/2023 07:40:03 10 7-15 (mmol /L) Final Glucose 06/26/2023 07:40:03 108 70-120 (mg /dL) Final Albumin 06/26/2023 07:40:03 4.6 3.8-5.0 (g /dL) Final AST (Aspartate aminotransferase) 06/26/2023 07:40:03 37 10-50 (U/L) Final Alk Phos 06/26/2023 07:40:03 66 35-130 (U/ L) Final Bilirubin, Total 06/26/2023 07:40:03 0.8 <=1 .2 (mg/dL) Final Calcium 06/26/2023 07:40:03 9.2 8.4-10.2 ( mg/dL) Final Protein 06/26/2023 07:40:03 6.7 6.0-8.3 (g /dL) Final ALT (Alanine aminotransferase) 06/26/2023 07:40:03 27 10-50 (U/L) Final Performing Location LABORATORY [facility] [address] [place] [address]
--- OUTSIDE RECORDS SUMMARY | 2023-10-04 05:24 | External Medical Summary ---
Author Name Unknown Address Unknown Organization K09:LABORATORY [place] [address] Laboratory Report Ordering Provider Test Date Status DEV DASH V 05/22/2023 07:44:04 Final Therapeutic ranges for non-o perative patients:
Prophylaxsis/treatment of DVT: (Range:2.0-3.0)
Treatment of pulmonary embolism:(Range:2.0-3.0)
Prevention of systemic embolism from:
-tissue heart valves
-acute myocardial infarction
-valvular heart disease
-atrial fibrillation
(Range: 2.0-3.0)
Mechanical prosthetic valves: (Range: 2.5-3.5) Observation Date Value Abnormality Reference (Units ) Status INR in Capillary blood by Coagulation assay 05/22/2023 07:44:04 4.5 (INR) Final Performing Location LABORATORY [place] [address]
--- OUTSIDE RECORDS SUMMARY | 2023-10-04 05:24 | External Medical Summary | Summary of Care ---
Author Name Unknown Organization [facility] Address [address] [place] [address] Phone [phone] Care Team Providers Care Test And Research Reactor Operator Name Role Phone Mario Mosquera MD Primary Care Provider + Reason for Visit * Reason Onset Date Comments Referral Requested by Specialist 04/30/2023 Podiatry referral request Encounter Details Date Type Department Care Team Description 04/30/2023 Telephone Podiatry, [address] [address] Brianna Dominguez [facility] [address] [place] [address] Referral Requested by Specialist (Podiatry... 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 Severe atherosclerotic plaque(s) in the descending aorta PAF (paroxysmal atrial fibrillation) High risk for fracture due to osteoporos is by DEXA scan 06/18/2016 Old DE (myocardial infarction) 2 Mixed hyperlipidemia 08/16/2009 Overview: [...] as of this encounter (statuses as of 04/30/2023) Resolved Problems Problem Noted Date Resolved Date [...] as of this encounter (statuses as of 04/30/2023) Immunizations Name Administration Dates Next Due COVID-19 mRNA, LNP-s, No Pre serve, 2-Dose Series ([employer]) 06/17/2021,11/18/2020,10/28/2020 COVID-19, LNP-s, No Preserve , Brennan-sucrose, Ages 12+ (Pfizer) 12/22/2021 Covid-19, Mrna, Lnp-s, Pf, B ivalent, 30 Mcg, IM, 12 yrs and above (Pfizer) 06/11/2022 H1N1 2009 Influenza, IM 10/01/2009 Pneumococcal [...] as of this encounter Miscellaneous Notes * Addendum Note - Donna Jim LPN - 04/30/2023 3:25 PM EDTAddended by: DONNA JIM on: 04/30/2023 03:25 PM Modules accepted: Orders * Telephone Encounter - Arcelia Galan - 04/30/2023 11:55 AM EDT Please enter a podiatry referral for this patient for today's visit. He was scheduled by an outsidescheduler and we were not aware he did not have a referral until he checked in. Thank you. documented in this encounter Plan of Treatment Upcoming Encounters Date Type Specialty Care Team Description 05/22/2023 Anticoagulation Pharmacy Pharmacist1, [facility] [address] [place] [address] 06/14/2023 Office Visit Internal Medicine Mario Mosquera MD [address] [place] [address] 06/26/2023 Imaging Radiology 06/26/2023 Office Visit Rheumatology Damion Mulligan MD [address] [facility] [place] [address] 08/22/2023 Office Visit Cardiology Noel Knapp PA-C [address] [place] [address] 12/23/2023 Office Visit Endocrinology Hetal Cali MD [address] [place] [address] Health Maintenance Due Date Last Done Comments *BISPHONATE OR OTHER ACCEPTABLE MEDICATION NEEDED FOR OSTEOPOROSIS (REFER TO SMARTSET #1146) 10/07/2022 Influenza Vaccine (FLU shot) (#1) 2023 05/22/2022, 05/24/2021, 06/03/2020, Additional history exists Depression Screening, Annual for Pts 12 and Over 05/22/2023 05/22/2022, 05/10/2015 DXA Scan 06/12/2023 06/12/2021, 03/09, 06/18/2016 DTaP,Tdap,and [...] D LEVEL ONCE IN A LIFETIME-USE SMARTSET# [id number] Completed 01/16/2023, 06/20/2022, 05/23/2022, Additional history exists [...] this encounter Medical Devices Implanted Type Area Tax Examining Technician Device Identifier Shelf Expiration Date Model / Serial / Lot Lens 24.0 Mx60 - [id number] - [id number] Implanted:Qty: 1 on 01/30/2018 by Russell Alaniz MD at OR [facility] Left: Eye BAUSCH & LOMB : SURGICAL 07/09/2020 MX60-24.0 / [id number] / [id number] Envista Hydrophobic Acrylic Intraoular Lens Implanted:Qty: 1 on 02/11/2018 by Russell Alaniz MD at OR [facility] Right: Eye BAUSCH & LOMB 08/08/2020 [id number] / [id number] / [id number] documented as of this encounter Visit Diagnoses Diagnosis Nail thickening- Primary Other specified disease of nail Nail problem Unspecified disease of nail documented in this encounter Advance Directives Latest [...] and were consensually agreed upon. Care Teams Test And Research Reactor Operator Relationship Specialty Start Date End Date Mario Mosquera MD [address] [place] [address] PCP - General Internal Medicine 11/09/13 documented as of this encounter
--- OUTSIDE RECORDS SUMMARY | 2023-10-04 05:24 | External Medical Summary | Summary of Care ---
Author Name Unknown Organization [facility] Address [address] [place] [address] Phone [phone] Care Team Providers Care Health Insurance Specialist Name Role Phone Mario Perez MD Primary Care Provider + Reason for Referral * Evaluate & Treat - Unlimited Visits (Within 30 days (routine)) - Pending Review Specialty Diagnoses / Procedures Referred By Annabelle [email or web address] Referred To Contact Podiatry Diagnoses Nail thickening Nail problem Brianna Dominguez DPM [address] [facility] [place] [address] Referral ID Status Reason Start Date Expiration Date Visits Requested Visits Authorized [id number] Pending Review Specialty Services Required 04/30/[phone] Question Answer Referral Priority Within 30 days (routine) Which condition are you referring this patient for? Routine Foot Care - Thick and discolored toenails Medicare Patient? Yes Can Patient perform routine footcare without assistance? No Does patient have a chronic condition? Yes Has patient been seen in the past 6 months? No Reason for Visit * Reason Onset Date Comments Referral Requested by Specialist 04/30/2023 Podiatry referral request Encounter Details Date Type Department Care Team Description 04/30/2023 Telephone Podiatry, [facility] [address] [facility] [place] [address] Brianna Dominguez DPM [address] [facility] [place] [address] (work) Referral Requested by Specialist (Podiatry... 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 Severe atherosclerotic plaque(s) in the descending aorta PAF (paroxysmal atrial fibrillation) High risk for fracture due to osteoporos is by DEXA scan 06/18/2016 Old NV (myocardial infarction) 2 Mixed hyperlipidemia 08/16/2009 Overview: [...] 06/18/2016 08/19/2017 Diastolic CHF 12/28/2015 11/03/2018 Acute NV 05/30/2012 06/06/2012 Chronic ischemic heart disease 01/17/2007 0 12/25/2018 Pneumonia due to organism 2013 Overview: ICD-10 update of inactive term IDIO PERIPH NEURPTHY NOS 018 PURE HYPERCHOLESTEROLEM 08/16/20 09 Overview: Per Lipid Taxonomy. documented as of this encounter (statuses as of 04/30/2023) Immunizations Name Administration Dates Next Due COVID-19 mRNA, LNP-s, No Pre serve, 2-Dose Series ([employer]) 06/17/2021,11/18/2020,10/28/2020 COVID-19, LNP-s, No Preserve , Brennan-sucrose, [...] encounter Miscellaneous Notes * Addendum Note - Mario Perez MD - 04/30/2023 3:44 PM EDTAddended by: MARIO PEREZ on: 04/30/2023 03:44 PM Modules accepted: Orders * Addendum Note - Donna Jim LPN - 04/30/2023 3:25 PM EDTAddended by: DONNA JIM on: 04/30/2023 03:25 PM Modules accepted: Orders * Telephone Encounter - Arcelia Galan - 04/30/2023 11:55 AM EDT Please enter a podiatry referral for this patient for today's visit. [facility] and we were not aware he did not have a referral until he checked in. Thank you. documented in this encounter Plan of Treatment Upcoming Encounters Date Type Specialty Care Team Description 05/22/2023 Anticoagulation Pharmacy Pharmacist1, [facility] [address] [facility] [place] [address] 06/14/2023 Office Visit Internal Medicine Mario Perez MD [address] [facility] [place] [address] 06/26/2023 Imaging Radiology 06/26/2023 Office Visit Rheumatology Damion Mulligan MD [address] [facility] [place] [address] 08/22/2023 Office Visit Cardiology Noel Knapp PA-C [address] [place] [address] 12/23/2023 Office Visit Endocrinology Hetal Cali MD [address] [place] [address] Scheduled Referrals Name Type Priority Associated Diagnoses Orde r Schedule PODIATRY REFERRAL OP Referral Within 30 days (routine) Nail thickening Nail problem Ordered: 04/30/2023 Health Maintenance Due Date Last Done Comments [...] D LEVEL ONCE IN A LIFETIME-USE SMARTSET# [id number] Completed 01/16/2023, 06/20/2022, 05/23/2022, Additional history exists [...] this encounter Medical Devices Implanted Type Area International Trade Specialist Device Identifier Shelf Expiration Date Model / Serial / Lot Lens 24.0 Mx60 - [id number] - [id number] Implanted:Qty: 1 on 01/30/2018 by Russell Alaniz MD at OR [facility] Left: Eye BAUSCH [employer] LOMB : SURGICAL 07/09/2020 MX60-24.0 / [id number] / [id number] Envista Hydrophobic Acrylic Intraoular Lens Implanted:Qty: 1 on 02/11/2018 by Russell Alaniz MD at OR [facility] Right: Eye BAUSCH [employer] LOMB 08/08/2020 [id number] / [id number] / [id number] documented as of this encounter Visit Diagnoses [...] and were consensually agreed upon. Care Teams Health Insurance Specialist Relationship Specialty Start Date End Date Mario Perez MD [address] [place] [address] PCP - General Internal Medicine 11/09/13 documented as of this encounter
--- OUTSIDE RECORDS SUMMARY | 2023-10-04 05:24 | External Medical Summary | Summary of Care ---
Author Name Unknown Organization [facility] Address [address] [place] [address] Phone [phone] Care Team Providers Care Milled Rice Broker Name Role Phone Mario Mosquera MD Primary Care Provider + Reason for Visit * Reason Onset Date Comments Advice 04/26/2023 Encounter Details Date Type Department Care Team Description 04/26/2023 Telephone General Internal Medicine [facility] [address] [facility] [place] [place] [address] Mario Mosquera MD [address] [place] [address] Advice Allergies No known active allergiesdocumented as of this encounter (statuses as of 04/27/2023) Medications Medication Sig Dispensed Refills Start Date [...] as of this encounter (statuses as of 04/27/2023) Active Problems Problem Noted Date Stenosis of right subclavian artery 11/07 Senile osteoporosis 08/30/2021 Chronic kidney disease, stage 3 unspecif ied 10/24/2020 Adverse reaction to DAYSI inhibitor drug 0 03/17/2020 Overview: AMY with salmonella posioning as well Diastolic dysfunction 11/03/2018 THERESA (obstructive sleep apnea) 11/20/2017 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 Severe atherosclerotic plaque(s) in the descending aorta PAF (paroxysmal atrial fibrillation) High risk for fracture due to osteoporos is by DEXA scan 06/18/2016 Old ID (myocardial infarction) 2 Mixed hyperlipidemia 08/16/2009 Overview: [...] as of this encounter (statuses as of 04/27/2023) Resolved Problems Problem Noted Date Resolved Date Chronic kidney disease, stage 3 unspecified 10/1001/19/2021 Pre-diabetes 01/07/2020 07/26/2022 Other atherosclerosis of bree tj arteries of extremities, bilateral legs 03/09/2019 [...] 06/18/2016 08/19/2017 Diastolic CHF 12/28/2015 11/03/2018 Acute ID 05/30/2012 06/06/2012 Chronic ischemic heart disease 01/17/2007 0 12/25/2018 Pneumonia due to organism 2013 Overview: ICD-10 update of inactive term IDIO PERIPH NEURPTHY NOS 018 PURE HYPERCHOLESTEROLEM 08/16/20 Overview: Per Lipid Taxonomy. documented as of this encounter (statuses as of 04/27/2023) Immunizations Name Administration Dates Next Due COVID-19 mRNA, LNP-s, No Pre serve, 2-Dose Series ([employer]) 06/17/2021,11/18/2020,10/28/2020 COVID-19, LNP-s, No Preserve , Brennan-sucrose, Ages 12+ ([employer]) 12/22/2021 Covid-19, Mrna, Lnp-s, Pf, B ivalent, 30 Mcg, IM, 12 yrs and above ([employer]) 06/11/2022 H1N1 2009 Influenza, IM 10/01/2009 Pneumococcal [...] encounter Miscellaneous Notes * Telephone Encounter - Moe Donis MD - 04/27/2023 8:31 AM EDT Noted and will address the issue during clinic visit * Telephone Encounter - Marguerite Loaiza LPN - 04/26/2023 4:57 PM EDT states that both of patients legs are swollen, up to his knees She just noticed it when he came in from the garage 30 min ago He has never had this happen before No redness noted No blisters or wounds noted Denies any SOB Denies any other sx's or complaints Patient has been up on his feet all day working He is currently sitting in a recliner with his feet elevated Appt scheduled for tomorrow weekend clinic Advised to have pt keep his feet elevated to see if swelling decreases will monitor and if swelling is down she may call tomorrow to cancel appt Advised that if she does cancel appt and swelling returns to call back on Saturday to set up another appt Reason for Call: Advice Contact: Telephone Call Contact Type: Other: Appt Total Time including non face to face (minutes): 15 documented in this encounter Plan of Treatment Upcoming Encounters Date Type Specialty Care Team Description 04/27/2023 Office Visit Family Medicine Moe Donis MD [address] [place] [address] [place] [id number] 04/30/2023 Office Visit Podiatry Brianna Dominguez DPM [address] [facility] [place] [address] 05/22/2023 Anticoagulation Pharmacy Pharmacist1, [facility] [address] [place] [address] 06/14/2023 Office Visit Internal Medicine Mario Mosquera MD [address] [place] [address] 06/26/2023 Imaging Radiology 06/26/2023 Office Visit Rheumatology Damion Mulligan MD [address] [place] [address] 08/22/2023 Office Visit Cardiology Noel Knapp PA-Carol [address] [place] [address] 12/23/2023 Office Visit Endocrinology Hetal Cali MD [address] [place] [address] Health Maintenance Due Date Last [...] D LEVEL ONCE IN A LIFETIME-USE SMARTSET# [id number] Completed 01/16/2023, 06/20/2022, 05/23/2022, Additional history exists [...] this encounter Medical Devices Implanted Type Area Conversion Worker Device Identifier Shelf Expiration Date Model / Serial / Lot Lens 24.0 Mx60 - [id number] - [id number] Implanted:Qty: 1 on 01/30/2018 by Russell Alaniz MD at OR [facility] Left: Eye BAUSCH & LOMB : SURGICAL 07/09/2020 MX60-24.0 / [id number] / [id number] Envista Hydrophobic Acrylic Intraoular Lens Implanted:Qty: 1 on 02/11/2018 by Russell Alaniz MD at OR [facility] Right: Eye BAUSCH & LOMB 08/08/2020 [id number] / [id number] / [id number] documented as of this encounter Advance Directives [...] and were consensually agreed upon. Care Teams Milled Rice Broker Relationship Specialty Start Date End Date Mario Mosquera MD [address] [place] [address], [place] [address] PCP - General Internal Medicine 11/09/13 documented as of this encounter
--- OUTSIDE RECORDS SUMMARY | 2023-10-04 05:24 | External Medical Summary | Summary of Care ---
Author Name Unknown Organization [facility] Address [address] [place] [address] Phone [phone] Care Team Providers Care Perinatal Instructor Name Role Phone Mario Mosquera MD Primary Care Provider + Reason for Visit * Reason Comments eRx-Medication Refill Encounter Details Date Type Department Care Team Description 04/18/2023 Refill Cardiology, [facility] [address] [facility] [place] [address] Mario Mosquera MD [address] [place] [address] Dyslipidemia, goal LDL below 70 Allergies No known active allergiesdocumented as of this encounter (statuses as of 04/18/2023) Medications Medication Sig Dispensed Refills Start Date [...] EVERY DAY 90 Tablet 3 04/18/2023 Active Rosuvastatin Calcium 40 MG Oral Tablet (Crestor)Indication s:Dyslipidemia, goal LDL below 70 TAKE 1 TABLET BY MOUTH EVERY DAY 90 Tablet 3 04/23/2022 3 Discontinued documented as of this encounter (statuses as of 04/18/2023) Active Problems Problem Noted Date Stenosis of right subclavian artery 11/07 Senile osteoporosis 08/30/2021 Chronic kidney disease, stage 3 unspecif ied 10/24/2020 Adverse reaction to DAYSI inhibitor drug 0 03/17/2020 Overview: AMY with salmonella posioning as well Diastolic dysfunction 11/03/2018 THERESA (obstructive sleep apnea) 11/20/2017 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 Severe atherosclerotic plaque(s) in the descending aorta PAF (paroxysmal atrial fibrillation) High risk for fracture due to osteoporos is by DEXA scan 06/18/2016 Old CA (myocardial infarction) 2 Mixed hyperlipidemia 08/16/2009 Overview: [...] as of this encounter (statuses as of 04/18/2023) Resolved Problems Problem Noted Date Resolved Date [...] 06/18/2016 08/19/2017 Diastolic CHF 12/28/2015 11/03/2018 Acute CA 05/30/2012 06/06/2012 Chronic ischemic heart disease 01/17/2007 0 12/25/2018 Pneumonia due to organism 2013 Overview: ICD-10 update of inactive term IDIO PERIPH NEURPTHY NOS 018 PURE HYPERCHOLESTEROLEM 08/16/20 09 Overview: Per Lipid Taxonomy. documented as of this encounter (statuses as of 04/18/2023) Immunizations Name Administration Dates Next Due COVID-19 mRNA, LNP-s, No Pre serve, 2-Dose Series ([employer])) 06/17/2021,11/18/2020,10/28/2020 COVID-19, LNP-s, No Preserve , Brennan-sucrose, Ages 12+ (Pfizer) 12/22/2021 Covid-19, Mrna, Lnp-s, Pf, B ivalent, 30 Mcg, IM, 12 yrs and above (Pfizer) 06/11/2022 H1N1 2009 Influenza, IM 10/01/2009 Pneumococcal Conjugate Vacc, 13 Valent (Prevnar) 11/08/2015 Pneumococcal Conjugate Vaccine, 7 Valent 010 Pneumococcal Polysaccharide PPV23 (Pneumovax) 12/23/2013 Seasonal Influenza, Quadriva lent Hd (Fluzone Hd) 05/22/2022,05/24/2021 Seasonal Influenza, Quadriva lent, No Preserve, 6 Mons & Above, IM 06/03/2020,06/19/2018 Seasonal Influenza, Quadriva lent, No Preserve, IM [...] encounter Miscellaneous Notes * Telephone Encounter - Orlando Zelaya PA-C - 04/18/2023 7:49 AM EDTSigned Prescriptions: Disp Refills Rosuvastatin Calcium 40 MG Oral Tablet (Cr*90 Tab*3 Sig: TAKE 1 TABLET BY MOUTH EVERY DAY Authorizing Provider: ORLANDO ZELAYA * Telephone Encounter - Nikolai Abraham RN - 04/18/2023 7:01 AM EDTPending Prescriptions: Disp Refills Rosuvastatin Calcium 40 MG Oral Tablet (Cr*90 Tab*3 Sig: TAKE 1 TABLET BY MOUTH EVERY DAY * Telephone Encounter - Nikolai Abraham RN - 04/18/2023 7:00 AM EDT Pending Prescriptions: Disp Refills Rosuvastatin Calcium 40 MG Oral Tablet (C*90 Tab*3 Sig: TAKE 1 TABLET BY MOUTH EVERY DAY Last Visit: 01/02/2023 (in office), 01/08/2020 (telemedicine) Next Visit: 08/22/2023 Last medication order date: 04/23/2022 Have you choosen a preferred pharm?? yes Patient Active Problem List Diagnosis Code HTN, goal below 140/90 I10 Reflux esophagitis K21.00 Mixed hyperlipidemia E78.2 Old CA (myocardial infarction) I25.2 CAD (coronary artery disease) I25.10 High risk for fracture due to osteoporosis by DEXA scan M81.0 PAF (paroxysmal atrial fibrillation) ([facility]) I48.0 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 senior living current use of anticoagulant therapy Z79.01 Lupus anticoagulant disorder ([facility]) D68.62 Parathyroid abnormality ([facility]) E21.5 THERESA (obstructive sleep apnea) G47.33 Diastolic dysfunction I51.89 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 Adverse reaction to DAYSI inhibitor drug T46.4X5A Chronic kidney disease, stage 3 unspecified ([facility]) N18.30 Senile osteoporosis M81.0 Stenosis of right subclavian artery ([facility]) I77.1 Labs: Lab Results Component Value Date/Time CREATININE 1.0 08/05/1996 09:00 AM CREATININE - [facility] 1.0 01/16/2023 08:14 AM CREATININE - [facility] 1.1 05/09/2020 01:47 [...] 4.0 08/05/1996 09:00 AM POTASSIUM - [facility] 4.1 01/16/2023 08:14 AM POTASSIUM - [facility] 3.7 05/09/2020 01:47 PM POTASSIUM-OUTSIDE LAB 3.8 06/06/2021 12:00 AM Lab Results Component Value Date/Time TSH - [facility] 1.97 05/23/2022 11:16 AM TSH - [facility] 2.04 01/06/2020 09:22 AM Lab Results Component Value Date/Time LDL CHOLESTEROL (CALCULATED) - [facility] 61 05/23/2022 [...] 31 08/05/1996 09:00 AM ALT - [facility] 28 05/23/2022 11:16 AM ALT - [facility] 19 08/19/2020 09:04 [...] Care Team Description 05/22/2023 Anticoagulation Pharmacy Pharmacist1, [facility] [address] [facility] [place] [address] 06/14/2023 Office Visit Internal Medicine Mario Mosquera MD [address] [facility] [place] [address] 06/26/2023 Imaging Radiology 06/26/2023 Office Visit Rheumatology Damion Mulligan MD [address] [facility] [place] [address] 08/22/2023 Office Visit Cardiology Orlando Zelaya PA-C [address] [place] [address] 12/23/2023 Office Visit Endocrinology Hetal Cali MD [address] [place] [address] Health Maintenance Due Date Last [...] Tdap) 11/17/2023 11/16/2013, 01/07/1994 GFR 01/17/2024 01/16/2023, 11/0 12/2021, 07/11/2022, Additional history exists Albumin/Creatinine Ratio 05/23/2025 05/23/2022 Pneumococcal Vaccine: 65+ Years Completed 11/08/2015, 12/23/2013 Zoster Vaccines Completed 02/19/2020, 04/2020, 05/22/2012 COLONOSCOPY-EVERY 5 YRS AGES 18-100 Discontinued 11/07/2021, 11/07/2021, 09/07/2015, Additional history exists Hepatitis C Screening Completed 05/23/2022 , 05/23/2022, 05/23/2022 COVID-19 Vaccine Completed 06/11/2022, , 06/17/2021, Additional history exists VITAMIN D LEVEL ONCE IN A LIFETIME-USE SMARTSET# [id number] Completed 01/16/2023, 06/20/2022, 05/23/2022, Additional history exists [...] this encounter Medical Devices Implanted Type Area Rolled Ham Lacer Device Identifier Shelf Expiration Date Model / Serial / Lot Lens 24.0 Mx60 - [id number] - [id number] Implanted:Qty: 1 on 01/30/2018 by Russell Alaniz MD at OR [facility] Left: Eye [employer] LOM[employer] : SURGICAL 07/09/2020 MX60-24.0 / [id number] / [id number] [employer] Hydrophobic Acrylic Intraoular Lens Implanted:Qty: 1 on 02/11/2018 by Russell Alaniz MD at OR [facility] Right: Eye BA[employer]CH [employer] LOMB 08/08/2020 [id number] / [id number] / [id number] documented as of this encounter Visit Diagnoses Diagnosis Dyslipidemia, goal LDL below 70 Other and unspecified hyperlipidemia documented in this encounter Advance Directives Latest [...] and were consensually agreed upon. Care Teams Perinatal Instructor Relationship Specialty Start Date End Date Mario Mosquera MD [address] [place] [address] PCP - General Internal Medicine 11/09/13 documented as of this encounter
--- OUTSIDE RECORDS SUMMARY | 2023-10-04 05:24 | External Medical Summary | Summary of Care ---
Author Name Unknown Organization [facility] Address [address] [place] [address] Phone [phone] Care Team Providers Care Comb Winder Name Role Phone Mario Mosquera MD Primary Care Provider + Reason for Visit * Reason Onset Date Comments Referral Requested by Specialist 04/30/2023 Podiatry referral request Encounter Details Date Type Department Care Team Description 04/30/2023 Telephone Podiatry, [address] [address] Brianna Dominguez [facility] [address] [place] [address] Referral Requested by Specialist (Podiatry... 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 [facility] and we were not aware he did not have a referral until he checked in. Thank you. documented in this encounter Plan of Treatment Upcoming Encounters Date Type Specialty Care Team Description 05/22/2023 Anticoagulation Pharmacy Pharmacist1, [facility] [address] [place] [address] 06/14/2023 Office Visit Internal Medicine Mario Mosquera MD [address] [place] [address] 06/26/2023 Imaging Radiology 06/26/2023 Office Visit Rheumatology Damion Mulligan MD [address] [place] [address] 08/22/2023 Office Visit Cardiology Noel Knapp PA-C [address] [place] [address] 12/23/2023 Office Visit Endocrinology Hetal Cali MD [address] [facility] [place] [address] Health Maintenance Due Date Last Done [...] D LEVEL ONCE IN A LIFETIME-USE SMARTSET# 00763 Completed 01/16/2023, 06/20/2022, 05/23/2022, Additional history exists [...] this encounter Medical Devices Implanted Type Area Child Development Professor Device Identifier Shelf Expiration Date Model / Serial / Lot Lens 24.0 Mx60 - [id number] - [id number] Implanted:Qty: 1 on 01/30/2018 by Russell Alaniz MD at OR [facility] Left: Eye BAUSCH & LOMB : SURGICAL 07/09/2020 MX60-24.0 / [id number] / [id number] Envista Hydrophobic Acrylic Intraoular Lens Implanted:Qty: 1 on 02/11/2018 by Russell Alaniz MD at OR [facility] Right: Eye BAUSCH & LOMB 08/08/2020 [id number] / [id number] / [id number] documented as of this encounter Advance Directives [...] and were consensually agreed upon. Care Teams Comb Winder Relationship Specialty Start Date End Date Mario Mosquera MD [address] [place] [address], [place] [address] PCP - General Internal Medicine 11/09/13 documented as of this encounter
--- OUTSIDE RECORDS SUMMARY | 2023-10-04 05:24 | External Medical Summary | Summary of Care ---
Author Name Unknown Organization [facility] Address [address] [place] [address] Phone [phone] Care Team Providers Care Solutions Developer Name Role Phone Mario Mosquera MD Primary Care Provider + Reason for Visit * Reason Comments NEW PATIENT * Evaluate & Treat - Unlimited Visits (Within 30 days (routine)) - Pending Review Specialty Diagnoses / Procedures Referred By Annabelle [email or web address] Referred To Contact Podiatry Diagnoses Nail thickening Nail problem Brianna Dominguez DPM [address] [place] [address] Referral ID Status Reason Start Date Expiration Date Visits Requested Visits Authorized [id number] Pending Review Specialty Services Required 04/30/[phone] Encounter Details Date Type Department Care Team Description 04/30/2023 Office Visit Podiatry, [facility] [address] [place] [address] Brianna Dominguez DPM [address] [place] [address] Onychomycosis* Allergies No known active allergiesdocumented as of this encounter (statuses as of 05/06/2023) Medications Medication Sig Dispensed Refills Start Date [...] as of this encounter (statuses as of 05/06/2023) Active Problems Problem Noted Date Stenosis of right subclavian artery 11/07 Senile osteoporosis 08/30/2021 Chronic kidney disease, stage 3 unspecif ied 10/24/2020 Adverse reaction to DAYSI inhibitor drug 0 03/17/2020 Overview: AMY with salmonella posioning as well Diastolic dysfunction 11/03/2018 THERESA (obstructive sleep apnea) 11/20/2017 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 Severe atherosclerotic plaque(s) in the descending aorta PAF (paroxysmal atrial fibrillation) High risk for fracture due to osteoporos is by DEXA scan 06/18/2016 Old [place] (myocardial infarction) 2 Mixed hyperlipidemia 08/16/2009 Overview: [...] as of this encounter (statuses as of 05/06/2023) Resolved Problems Problem Noted Date Resolved Date [...] 06/18/2016 08/19/2017 Diastolic CHF 12/28/2015 11/03/2018 Acute [place] 05/30/2012 06/06/2012 Chronic ischemic heart disease 01/17/2007 0 12/25/2018 Pneumonia due to organism 2013 Overview: ICD-10 update of inactive term IDIO PERIPH NEURPTHY NOS 018 PURE HYPERCHOLESTEROLEM 08/16/20 09 Overview: Per Lipid Taxonomy. documented as of this encounter (statuses as of 05/06/2023) Immunizations Name Administration Dates Next Due COVID-19 mRNA, LNP-s, No Pre serve, 2-Dose Series (InstaGIS) 06/17/2021,11/18/2020,10/28/2020 COVID-19, LNP-s, No Preserve , Brennan-sucrose, Ages 12+ (Pfizer) 12/22/2021 Covid-19, Mrna, Lnp-s, Pf, B ivalent, 30 Mcg, IM, 12 yrs and above (InstaGIS) 06/11/2022 H1N1 2009 Influenza, IM 10/01/2009 Pneumococcal [...] as of this encounter Progress Notes * Marcelina Sylvester DPM - 04/30/2023 11:39 AM EDT GENERAL HISTORY & PHYSICAL EXAMINATION - Podiatry Service Name: Andrew Reardon Date: 04/30/2023 Time: 11:40 AM Subjective PRESENTING PROBLEM: Bilateral hypertrophy and discoloration to the 2nd toenails Patient Active Problem List Diagnosis Code HTN, goal below 140/90 I10 Reflux esophagitis K21.00 Mixed hyperlipidemia E78.2 Old [place] (myocardial infarction) I25.2 CAD (coronary artery disease) I25.10 High risk for fracture due to osteoporosis by DEXA scan M81.0 PAF (paroxysmal atrial fibrillation) ([facility]) I48.0 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 Z79.01 Lupus anticoagulant disorder ([facility]) D68.62 Parathyroid abnormality ([facility]) E21.5 THERESA (obstructive sleep apnea) G47.33 Diastolic dysfunction I51.89 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 The patient reports that his toenails are beginning to thicken as he ages and is concerned as the nails appear to grow over the distal lenny of his digits. He is furthermore concerned as he feels that he is growing multiple nails to the bilateral 2nd digits. He does express considerable pain upon ambulation in shoe gear as shoes compress upon his nail plates. The patient denies past medical history of diabetes however does have a considerable cardiac history. He iscurrently on Coumadin and expresses hesitation in trimming his own toenails. He otherwise denies recent falls or injuries to the bilateral feet and furthermore denies recent constitutional signs of infection including nausea, vomiting, fever, chills, shortness of breath, chest pain, diarrhea, bilateral calf pain. PAST MEDICAL HISTORY: Past Medical History: Diagnosis Date Adverse reaction to DAYSI inhibitor drug 03/17/2020 CAD (coronary artery disease) Diastolic CHF ([facility]) 12/28/2015 Diastolic dysfunction 11/03/2018 Dyslipidemia, goal LDL below 100 08/16/2009 Per Lipid Taxonomy. Hereditary and idiopathic peripheral neuropathy High risk for fracture due to osteoporosis by DEXA scan 06/18/2016 HTN, goal below 140/90 01/17/2007 Infarction of kidney ([facility]) 12/18/2017 Old [place] (myocardial infarction) 06/06/2012 Osteoporosis 06/18/2016 Pre-diabetes 01/07/2020 Reflux esophagitis 01/17/2007 Renal infarct (HCC) 01/09/2017 Splenic infarct 2017 Stenosis of right subclavian artery (HCC) 11/17/2021 PAST SURGICAL HISTORY: Past Surgical History: Procedure Laterality Date CARPAL TUNNEL SURGERY Right 2018 Dr. larsen CATARACT SURGERY,COMPLEX Bilateral 2018 COLONOSCOPY, DIAGNOSTIC (RECTUM) 09/07/2015 adenomatous polyp, diverticulosis, repeat 5 yrs/COLONOSCOPY FLEXIBLE PROXIMAL DIAGNOSTIC performed by Vinicio Alarcon MD at END[facility]COPY [facility] COLONOSCOPY, DIAGNOSTIC (RECTUM) 11/07/2021 diverticulosis / COLONOSCOPY FLEXIBLE PROXIMAL DIAGNOSTIC performed by Vinicio Alarcon MD at [facility] REMOVE CATARACT, INSERT LENS PROSTH Left 01/30/2018 left EXTRACAPSULAR CATARACT REMOVAL WITH INTRAOCULAR LENS performed by Russell Alaniz MD at OR [facility] REMOVE CATARACT, INSERT LENS PROSTH Right 02/11/2018 right EXTRACAPSULAR CATARACT REMOVAL WITH INTRAOCULAR LENS performed by Russell Alaniz MD at OR [facility] TOTAL HIP REPLACEMENT EDU. Right 2001 [facility] FAMILY HISTORY: Family History Problem Relation Age of Onset Heart Disorder Mother Hypertension Mother Stroke Mother Musculo-skeletal Disorder Mother osteoporosis - hip fracture Osteoporosis Mother hip fracture Heart Disorder Father Hypertension Father Diabetes Father Diabetes Grandmother (Paternal) Cancer Son mouth SOCIAL HISTORY: Social History Tobacco Use Smoking status: Former Packs/day: 0.50 Years: 55.00 Pack years: 27.50 Types: Cigarettes Quit date: 09/24/2005 Years since quittin.6 Smokeless tobacco: Never Vaping Use Vaping Use: Never used Substance Use Topics Alcohol use: Yes Alcohol/week: 8.3 standard drinks Types: 10 12 oz of beer per week Comment: about 2 drinks daily Drug use: No CURRENT MEDICATIONS: Note that discontinued continue to display for 24 hours. Ordered medications to be given in the future also display. Current Outpatient Medications Medication Sig Dispense Refill [...] Wed, Fri & Sat or as directed [facility] 55 Tablet 3 Rosuvastatin Calcium 40 MG Oral Tablet (Crestor) TAKE 1 TABLET BY MOUTH EVERY DAY 90 Tablet 3 No current facility-administered medications for this visit. ALLERGIES: Patient has no known allergies. REVIEW OF SYSTEMS: Review of systems is negative unless otherwise stated in HPI Objective PHYSICAL EXAMINATION: DP and PT pulses are palpable to the bilateral lower extremities at 1/4. No pedal hair is present to the bilateral lower extremities. There are no observable signs of pallor, rubor or cyanosis to thebilateral lower extremities. Skin temperature is warm to cool from proximal tibias to distal lenny of digits to the bilateral lower extremities. Light touch and protective sensation is well intact tothe bilateral lower extremities. Gross motor function is intact. AROM and PROM of ankle joints are well intact. Digital range of motion is well intact. Patient has planus foot type with long 2nd digits bilaterally. There are no open wounds or acute signs of clinical infection to the bilateral lower extremities to include purulent exudate, proximally ascending erythema, palpable crepitus, bogginess, fluctuance. To the bilateral 2nd toenails, these nails are scalloped or lamellated in appearance.Nails times 10 are elongated and hypertrophic however the bilateral 2nd toenails exhibit darkening discoloration with lifting of the nail plates. There is mild malodor to the bilateral 2nd toenails.Crumbling is noted especially to the right 2nd toenail. Nails times 10 are positive for subungual debris. Considerable amount of darkened subungual debris is present to the inferior aspect of the right 2nd toenail. LABS: Labs reviewed as indicated below: No new labs to review at this time. IMPRESSION and PLAN: (B35.1) Onychomycosis (primary encounter diagnosis) The patient was examined, evaluated and treated by Dr. Dominguez with all questions and concerns addressed. Patient appoints to office with chief complaint of bilateral darkening and hypertrophy to the 2nd toenails. Patient is advised that he is likely dealing with a course of nail fungus as well as unique biomechanical adaptations secondary to his long 2nd toes and increased pressure in shoe gear. Patient's nails times 10 were debrided with the use of a large nail Nipper without incident. No bleeding or injury elicited. Patient is advised that he should reappoint for routine debridements as nails become elongated and hypertrophic. He is advised that we may prescribe a topical antifungal in the future if routine debridements are not adequate in controlling his pain. Would not consider the use of oral Lamisil at this time secondary to involvement of liver as well as metabolism of Coumadin within the liver. Patient may follow-up as needed for continued nail care. He was advised to contact our office with any questions or concerns prior to his next appointment. Marcelina Sylvester DPM (PGY-3) I have discussed the patient's management with the medical trainee and agree with the note. Please refer to the documented findings and plan of care. This patient's visit today consisted of an evaluation and procedure. I was present and confirmed the findings of the history and exam, and was present for the lancaster and critical portions of the procedure. Brianna Dominguez DPM documented in this encounter Nursing Notes * Sandra Charles LPN - 04/30/2023 11:31 AM EDT Pt here for nails on bilateral second toes that are thick and discolored documented in this encounter Plan of Treatment Upcoming Encounters Date Type Specialty Care Team Description 05/22/2023 Anticoagulation Pharmacy Pharmacist1, [facility] [address] [place] [address] 06/14/2023 Office Visit Internal Medicine Mario Mosquera MD [address] [facility] [place] [address] 06/26/2023 Imaging Radiology 06/26/2023 Office Visit Rheumatology Damion Mulligan MD [address] [place] [address] 08/22/2023 Office Visit Cardiology Noel Knapp PA-Carol [address] [place] [address] 12/23/2023 Office Visit Endocrinology Hetal Cali MD [address] [place] [address] Scheduled Referrals Name Type Priority Associated Diagnoses [...] D LEVEL ONCE IN A LIFETIME-USE SMARTSET# 23681 Completed 01/16/2023, 06/20/2022, 05/23/2022, Additional history exists [...] this encounter Medical Devices Implanted Type Area Limo Driver Device Identifier Shelf Expiration Date Model / Serial / Lot Lens 24.0 Mx60 - [id number] - [id number] Implanted:Qty: 1 on 01/30/2018 by Russell Alaniz MD at OR [facility] Left: Eye BAUSCH & LOMB : SURGICAL 07/09/2020 MX60-24.0 / [id number] / [id number] Envista Hydrophobic Acrylic Intraoular Lens Implanted:Qty: 1 on 02/11/2018 by Russell Alaniz MD at OR [facility] Right: Eye BAUSCH & LOMB 08/08/2020 [id number] / [id number] / [id number] documented as of this encounter Visit Diagnoses Diagnosis Onychomycosis- Primary Dermatophytosis of nail documented in this encounter Advance [...] and were consensually agreed upon. Care Teams Solutions Developer Relationship Specialty Start Date End Date Mario Mosquera MD [address] [place] [address], [place] [id number] PCP - General Internal Medicine 11/09/13 documented as of this encounter
--- OUTSIDE RECORDS SUMMARY | 2023-10-04 05:24 | External Medical Summary | Summary of Care ---
Author Name Unknown Organization [facility] Address [address] [place] [address] Phone [phone] Care Team Providers Care Nailing Machine Operator Name Role Phone Mario Mosuqera MD Primary Care Provider + Reason for Visit * Reason Onset Date Comments Advice 04/26/2023 Encounter Details Date Type Department Care Team Description 04/26/2023 Telephone General Internal Medicine 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 Severe atherosclerotic plaque(s) in the descending aorta PAF (paroxysmal atrial fibrillation) High risk for fracture due to osteoporos is by DEXA scan 06/18/2016 Old [place] (myocardial infarction) 2 Mixed hyperlipidemia 08/16/2009 Overview: [...] 06/18/2016 08/19/2017 Diastolic CHF 12/28/2015 11/03/2018 Acute [place] 05/30/2012 06/06/2012 Chronic ischemic heart disease 01/17/2007 0 12/25/2018 Pneumonia due to organism 2013 Overview: ICD-10 update of inactive term IDIO PERIPH NEURPTHY NOS 018 PURE HYPERCHOLESTEROLEM 08/16/20 Overview: Per Lipid Taxonomy. documented as of this encounter (statuses as of 04/27/2023) Immunizations Name Administration Dates Next Due COVID-19 mRNA, LNP-s, No Pre serve, 2-Dose Series (AptDeco) 06/17/2021,11/18/2020,10/28/2020 COVID-19, LNP-s, No Preserve , Brennan-sucrose, Ages 12+ (AptDeco) 12/22/2021 Covid-19, Mrna, Lnp-s, Pf, B ivalent, 30 Mcg, IM, 12 yrs and above (AptDeco) 06/11/2022 H1N1 2009 Influenza, IM 10/01/2009 Pneumococcal [...] encounter Miscellaneous Notes * Telephone Encounter - Nyla Farnsworth MD - 04/27/2023 1:04 PM EDT Noted and agreed * Telephone Encounter - Moe Donis MD [...] his feet elevated Appt scheduled for [facility] Advised to have pt keep his [...] Encounters Date Type Specialty Care Team Description 04/30/2023 Office Visit Podiatry Brianna Dominguez, LEONELA [address] [place], [place] [id number] 05/22/2023 Anticoagulation Pharmacy Pharmacist1, [facility] [address] [place] [address] 06/14/2023 Office Visit Internal Medicine Mario Mosquera MD [address] [place] [address] 06/26/2023 Imaging Radiology 06/26/2023 Office Visit Rheumatology Damion Mulligan MD [address] [place] [address] 08/22/2023 Office Visit Cardiology Noel Knapp PA-C [address] [place] [address] 12/23/2023 Office Visit Endocrinology Hetal Cali MD [address] [place] [address] Health Maintenance Due Date Last [...] D LEVEL ONCE IN A LIFETIME-USE SMARTSET# [id number] Completed 01/16/2023, 06/20/2022, 05/23/2022, Additional history exists [...] this encounter Medical Devices Implanted Type Area Tour Narrator Device Identifier Shelf Expiration Date Model / Serial / Lot Lens 24.0 Mx60 - [id number] - [id number] Implanted:Qty: 1 on 01/30/2018 by Russell Alaniz MD at OR [facility] Left: Eye BAUSCH & LOMB : SURGICAL 07/09/2020 MX60-24.0 / [id number] / [id number] Envista Hydrophobic Acrylic Intraoular Lens Implanted:Qty: 1 on 02/11/2018 by Russell Alaniz MD at OR [facility] Right: Eye BAUSCH & LOMB 08/08/2020 [id number] / [id number] / [id number] documented as of this encounter Advance Directives [...] and were consensually agreed upon. Care Teams Nailing Machine Operator Relationship Specialty Start Date End Date Mario oMsquera MD [address] [place] [address], [place] [address] PCP - General Internal Medicine 11/09/13 documented as of this encounter
--- OUTSIDE RECORDS SUMMARY | 2023-10-04 05:25 | External Medical Summary ---
Author Name Unknown Address Unknown Organization K09:[facility] [address] Laboratory Report Ordering Provider Test Date Status DEV DASH V 04/10/2023 08:19:57 Final Therapeutic ranges for non-o perative patients:
Prophylaxsis/treatment of DVT: (Range:2.0-3.0)
Treatment of pulmonary embolism:(Range:2.0-3.0)
Prevention of systemic embolism from:
-tissue heart valves
-acute myocardial infarction
-valvular heart disease
-atrial fibrillation
(Range: 2.0-3.0)
Mechanical prosthetic valves: (Range: 2.5-3.5) Observation Date Value Abnormality Reference (Units ) Status INR in Capillary blood by Coagulation assay 04/10/2023 08:19:57 1.6 (INR) Final Performing Location [facility] [id number]
--- OUTSIDE RECORDS SUMMARY | 2023-10-04 05:25 | External Medical Summary | Summary of Care ---
Author Name Unknown Organization [facility] Address [address] [place] [address] Phone [phone] Care Team Providers Care Ram Car Operator Name Role Phone Mario Mosquera MD Primary Care Provider + Reason for Visit * Reason Comments Dosage Adjustment In Person (Anticoag Cl inic) Encounter Details Date Type Department Care Team Description 04/10/2023 Anticoagulation Pharmacy, [facility] [address] [facility] [place] [address] Pharmacist1, [facility] [address] [place] [address] PAF (paroxysmal atrial fibrillation) (HCC)*; Lupus anticoagulant disorder (HCC); Anticoagulation management encounter; 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 45 Tablet 3 04/16/2022 Active Rosuvastatin Calcium 40 MG Oral Tablet (Crestor)Indications: Dyslipidemia, goal LDL below 70 TAKE 1 TABLET BY MOUTH EVERY DAY 90 Tablet 3 04/23/2022 Active Lisinopril 20 MG Oral Tablet (Prinivil) [...] coag clinic 55 Tablet 3 02/11/2023 Active documented as of this encounter (statuses as of 04/10/2023) Active Problems Problem Noted Date Stenosis of [...] osteoporos is by DEXA scan 06/18/2016 Old [place] (myocardial infarction) 2 Mixed hyperlipidemia 08/16/2009 Overview: [...] as of this encounter (statuses as of 04/10/2023) Resolved Problems Problem Noted Date Resolved Date [...] 06/18/2016 08/19/2017 Diastolic CHF 12/28/2015 11/03/2018 Acute IL 05/30/2012 06/06/2012 Chronic ischemic heart disease 01/17/2007 0 12/25/2018 Pneumonia due to organism 2013 Overview: ICD-10 update of inactive term IDIO PERIPH NEURPTHY NOS 018 PURE HYPERCHOLESTEROLEM 08/16/20 09 Overview: Per Lipid Taxonomy. documented as of this encounter (statuses as of 04/10/2023) Immunizations Name Administration Dates Next Due COVID-19 mRNA, LNP-s, No Pre serve, 2-Dose Series (Imagimod) 06/17/2021,11/18/2020,10/28/2020 COVID-19, LNP-s, No Preserve , Brennan-sucrose, Ages 12+ (Pfizer) 12/22/2021 Covid-19, Mrna, Lnp-s, Pf, B ivalent, 30 Mcg, IM, 12 yrs and above (Imagimod) 06/11/2022 H1N1 2009 Influenza, IM 10/01/2009 Pneumococcal [...] of this encounter Progress Notes * Anthony Goins V, [facility] - 04/10/2023 8:16 AM EDT Images from the original note were not included. Medication Therapy Disease Management - Anticoagulation Andrew Reardon 1945 Description Needs reduced dose on doxycyline Patient Findings Positives: Missed doses (He may have missed a dose recently) Negatives: Signs/symptoms of thrombosis, Signs/symptoms of bleeding, Change in health, Change in alcohol use, Change in activity, Upcoming invasive procedure, Extra doses, Change in medications, Change in diet/appetite, Bruising INR Result As of 04/10/2023 INR goal: 2.0-3.0 INR used for dosin.6 (04/10/2023) Warfarin Plan As of 04/10/2023 Full warfarin instructions: 04/10: 3 mg; Otherwise 2.5 mg every Sat, e, Katherine; 1 mg all other days Next INR check: 05/22/2023 Repeat PT/INR in 6 week(s) Weekly dose: not changed Anthony Goins RPh, CACP, CDE Clinical Pharmacist Medication Therapy Management [facility] 04/10/2023 8:23 AM documented in this encounter Plan of Treatment Upcoming Encounters Date Type Specialty Care Team Description 04/17/2023 Office Visit Orthopedics Rafael Sanford MD [address] [place] [address] 05/22/2023 Anticoagulation Pharmacy Pharmacist, [facility] [address] [place] [address] 06/14/2023 Office Visit Internal Medicine Mario Mosquera MD [address] [place] [address] 06/26/2023 Imaging Radiology 06/26/2023 Office Visit Rheumatology Damion Mulligan MD [address] [place] [address] 08/22/2023 Office Visit Cardiology Noel Knapp PA-C [address] [place] [address] 12/23/2023 Office Visit Endocrinology Hetal Cali MD [address] [place] [address] Health Maintenance Due Date Last [...] D LEVEL ONCE IN A LIFETIME-USE SMARTSET# [id number] Completed 01/16/2023, 06/20/2022, 05/23/2022, Additional history exists [...] this encounter Medical Devices Implanted Type Area Aviation Safety Technician Device Identifier Shelf Expiration Date Model / Serial / Lot Lens 24.0 Mx60 - [id number] - [id number] Implanted:Qty: 1 on 01/30/2018 by Russell Alaniz MD at OR [facility] Left: Eye [employer] LOMB : SURGICAL 07/09/2020 MX60-24.0 / [id number] / [id number] Envista Hydrophobic Acrylic Intraoular Lens Implanted:Qty: 1 on 02/11/2018 by Russell Alaniz MD at OR [facility] Right: Eye [employer] LOMB 08/08/2020 [id number] / [id number] / [id number] documented as of this encounter Procedures Procedure Name Priority Date/Time Associated Diagnosis Comments INR FINGERSTICK, POINT OF CARE STAT 04/10/2023 8:19 AM EDT Lupus anticoagulant disorder (HCC) PAF (paroxysmal atrial fibrillation) (HCC) Anticoagulation management encounter snf current use of anticoagulant therapy documented in this encounter Results * INR FINGERSTICK, POINT OF CARE (04/10/2023 8:19 AM EDT) Fingerstick INR 1.6 INR 8:21 AM EDT [facility] Blood 04/10/2023 8:19 AM EDT 04/10/2023 8:21 AM EDT Narrative [facility] - 04/10/2023 8:21 AM EDT Therapeutic ranges for non-operative patients: Prophylaxsis/treatment of DVT: (Range:2.0-3.0) Treatment of pulmonary embolism:(Range:2.0-3.0) Prevention of systemic embolism from: -tissue heart valves -acute myocardial infarction -valvular heart disease -atrial fibrillation (Range: 2.0-3.0) Mechanical prosthetic valves: (Range: 2.5-3.5) Anthony Goins V, [facility] LAB POINT OF CARE TE ST DOCKED DEVICE UNSOLICITED RESULTS [facility] [address]- [address] [place] [id number] documented in this encounter Visit Diagnoses Diagnosis PAF (paroxysmal atrial fibrillation) (HCC)- Primary Atrial fibrillation Lupus anticoagulant disorder (HCC) Primary hypercoagulable state Anticoagulation management encounter Encounter for therapeutic drug monitoring parts counterman current use of anticoagulant therapy documented in [...] and were consensually agreed upon. Care Teams Ram Car Operator Relationship Specialty Start Date End Date Mario Mosquera MD [address] [facility] [place] [address] PCP - General Internal Medicine 11/09/13 documented as of this encounter
--- OUTSIDE RECORDS SUMMARY | 2023-10-04 05:25 | External Medical Summary | Summary of Care ---
Author Name Unknown Organization [facility] Address [address] [place] [address] Phone [phone] Care Team Providers Care Supervisor Cleaning And Annealing Name Role Phone Mario Mosquera MD Primary Care Provider + Reason for Visit * Reason Comments Follow Up Bilateral knee Encounter Details Date Type Department Care Team Description 12/18/[address] [facility] [address] [place] [address] Rafael Sanford MD [address] [place] [address] Primary osteoarthritis of right knee*; Primary osteoarthritis of left knee; Bone lesion Allergies No known active allergiesdocumented as of this encounter (statuses as of 04/17/2023) Medications Medication Sig Dispensed Refills Start Date [...] PAIN, CHEST. 25 Tablet 11 2 Active Warfarin Sodium 5 MG Oral Tablet (Coumadin)Indicati ons:PAF (paroxysmal atrial fibrillation) (HCC) TAKE 5MG (1 TABLET) TUES & SAT 2.5MG (1/2 TABLET) ALL OTHER DAYS BY MOUTH OR DIRECTED. 45 Tablet 3 2 Active Rosuvastatin Calcium 40 MG Oral Tablet (Crestor)Indicatio ns:Dyslipidemia, goal LDL below 70 TAKE 1 TABLET BY MOUTH EVERY DAY 90 Tablet 3 2 Active Lisinopril 20 MG Oral Tablet (Prinivil) Take 1 Tablet (20 mg) by mouth in the morning. 90 Tablet 3 2 Active Acetaminophen ER 650 MG Oral [...] BY MOUTH 135 Tablet 3 3 Active Warfarin Sodium 1 MG Oral Tablet (Coumadin)Indicati ons:Lupus anticoagulant disorder (HCC),PAF (paroxysmal atrial fibrillation) (HCC) Take 1 tablet Mon, Wed, Fri & Sat or as directed by coag clinic 55 Tablet 3 2 02/11/20 23 Discontinued(Ref ill) amLODIPine Besylate 2.5 MG Oral Tablet (Norvasc) Take 1 Tablet by mouth in the morning. 90 Tablet 3 3 01/03/20 23 Discontinued Hospital, Clinic, or Other Facility Administered Medication Ordered Dose Route Frequency Start Date End Date Status lidocaine 1% 1 mL - triamcinolone acetonide 40 mg/mL 1 mL inj 2 mLIndications:Primary osteoarthritis of right knee 2 mL IJ ONCE 12/18/2022 12/18/2022 Ended lidocaine 1% 1 mL - triamcinolone acetonide 40 mg/mL 1 mL inj 2 mLIndications:Primary osteoarthritis of left knee 2 mL IJ ONCE 12/18/2022 12/19/19 23 Ended documented as of this encounter (statuses as of 04/17/2023) Active Problems Problem Noted Date Stenosis of right subclavian artery 11/07 Senile osteoporosis 08/30/2021 Chronic kidney disease, stage 3 unspecif ied 10/24/2020 Adverse reaction to DAYSI inhibitor drug 0 03/17/2020 Overview: AMY with salmonella posioning as well Diastolic dysfunction 11/03/2018 THERESA (obstructive sleep apnea) 11/20/2017 Parathyroid abnormality 08/19/2017 Lupus anticoagulant disorder 10/17/2016 residential current use of anticoagulant t herapy 10/01/2016 Overview: ICD-10 update of inactive term 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 Severe atherosclerotic plaque(s) in the descending aorta PAF (paroxysmal atrial fibrillation) High risk for fracture due to osteoporos is by DEXA scan 06/18/2016 Old [place] (myocardial infarction) 2 Mixed hyperlipidemia 08/16/2009 Overview: [...] as of this encounter (statuses as of 04/17/2023) Resolved Problems Problem Noted Date Resolved Date [...] 06/18/2016 08/19/2017 Diastolic CHF 12/28/2015 11/03/2018 Acute [place] 05/30/2012 06/06/2012 Chronic ischemic heart disease 01/17/2007 0 12/25/2018 Pneumonia due to organism 2013 Overview: ICD-10 update of inactive term IDIO PERIPH NEURPTHY NOS 018 PURE HYPERCHOLESTEROLEM 08/16/20 09 Overview: Per Lipid Taxonomy. documented as of this encounter (statuses as of 04/17/2023) Immunizations Name Administration Dates Next Due COVID-19 mRNA, LNP-s, No Pre serve, 2-Dose Series (SAVORTEX) 06/17/2021,11/18/2020,10/28/2020 COVID-19, LNP-s, No Preserve , Brennan-sucrose, Ages 12+ (Pfizer) 12/22/2021 Covid-19, Mrna, Lnp-s, Pf, B ivalent, 30 Mcg, IM, 12 yrs and above (SAVORTEX) 06/11/2022 H1N1 2009 Influenza, IM 10/01/2009 Pneumococcal [...] Progress Notes * Rafael Sanford MD - 12/18/2022 8:34 AM EDT Andrew A Caron [id number] Andrew Sunshinekman is a 75 year old male who presents for f/u to [facility] Orthopaedics and Sports Medicine for left greater than right knee injury/pain. I saw him originally for this on 03/10/2021 Most recent visit for these issues was on 01/31/2022 Andrew Haven Reardon is here with his Quality: reviewed and [...] long-term benefit from those bilateral steroid injections. Since that visit: Patient presents today for bilateral knee pain with the hope to have repeat steroid injection injection. Patients states he can barely walk. Pt states his knees are sore. Reports that pain came back about 1 month ago and therefore he got approximately 9-10 months benefit ROS: ROS per HPI otherwise non-contributory Past Medical History: Diagnosis Date Adverse reaction to DAYSI inhibitor drug 03/17/2020 CAD (coronary artery disease) Diastolic CHF ([facility]) 12/28/2015 Diastolic dysfunction 11/03/2018 Dyslipidemia, goal LDL below 100 08/16/2009 Per Lipid Taxonomy. 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 Full ROM B/L Radiology (I have personally reviewed the following [...] and 01/31/2022 gave him substantial long-term benefit. Regarding the most recent injections from 01/31/2022 he got approximately 9-10 months benefit Repeat bilateral intra-articular steroid injections performed today 12/18/2022 Patient to message me in 3 weeks how he is doing. We have discussed additional arthritis treatment options including the following: Physical therapy, knee bracing, OTC/prescription medications, topical anti- inflammatory, hyaluronicacid injections (one shot and three shot) 2) Bone lesion R knee Likely bone infarct per discussion with Dr. Cordon ([facility] radiology [facility]) Repeat radiograph 01/31/2022 showed: . Stable appearance [...] Rafael Sanford MD Primary Care Sports Medicine [facility] Orthopa[facility] [address] [address] documented in this encounter Nursing Notes * MACY Sood - 12/18/2022 8:08 AM EDT Patient presents today for bilateral knee injection. Patients states he can barely walk. Pt states his knees are sore. documented in this encounter Plan of Treatment Upcoming Encounters Date Type Specialty Care Team Description 05/22/2023 Anticoagulation Pharmacy Pharmacist1, [facility] [address] [facility] [place] [address] 06/14/2023 Office Visit Internal Medicine Mario Mosquera MD [address] [facility] [place] [address] 06/26/2023 Imaging Radiology 06/26/2023 Office Visit Rheumatology Damion Mulligan MD [address] [facility] [place] [address] 08/22/2023 Office Visit Cardiology Noel Knapp PA-C [address] [place] [address] 12/23/2023 Office Visit Endocrinology Hetal Cali MD [address] [place] [address] Health Maintenance Due Date Last [...] D LEVEL ONCE IN A LIFETIME-USE SMARTSET# [id number] Completed 01/16/2023, 06/20/2022, 05/23/2022, Additional history exists [...] this encounter Medical Devices Implanted Type Area Machine Tracer Device Identifier Shelf Expiration Date Model / Serial / Lot Lens 24.0 Mx60 - [id number] - [id number] Implanted:Qty: 1 on 01/30/2018 by Russell Alaniz MD at OR [facility] Left: Eye BA[employer]CH [employer] LOMB : SURGICAL 07/09/2020 MX60-24.0 / [id number] / [id number] Envista Hydrophobic Acrylic Intraoular Lens Implanted:Qty: 1 on 02/11/2018 by Russell Alaniz MD at OR [facility] Right: Eye BAUSCH [employer] LOMB 08/08/2020 [id number] / [id number] / [id number] documented as of this encounter Visit Diagnoses Diagnosis Primary osteoarthritis of right knee- Primary Primary localized osteoarthrosis, lower leg Primary osteoarthritis of left knee Primary localized osteoarthrosis, lower leg Bone lesion Disorder of bone and cartilage, unspecified documented in this encounter Administered Medications Inactive Administered Medications - up to 3 most recent administrations Medication Order MAR Action Action Date Dose Rate Site lidocaine 1% 1 mL - triamcinolone acetonide 40 mg/mL 1 mL inj 2 mL 2 mL, Injection, ONCE, On Sat12/18/22 at 0915, For 1 dose, Lidocaine 1% 1mL Triamcinolone Acetonide 40 mg/mL 1 mL (Final concentration = 20 mg/mL) REFRIGERATE and SHAKE WELL Given 12/18/2022 8:50 AM EDT 2 mL Knee Right lidocaine 1% 1 mL - triamcinolone acetonide 40 mg/mL 1 mL inj 2 mL 2 mL, Injection, ONCE, On Sat12/18/22 at 0915, For 1 dose, Lidocaine 1% 1mL Triamcinolone Acetonide 40 mg/mL 1 mL (Final concentration = 20 mg/mL) REFRIGERATE and SHAKE WELL Given 12/18/2022 8:51 AM EDT 2 mL Knee Left documented in this [...] and were consensually agreed upon. Care Teams Supervisor Cleaning And Annealing Relationship Specialty Start Date End Date Mario Mosquera MD [address] [place] [address], [place] [address] PCP - General Internal Medicine 11/09/13 documented as of this encounter
--- OUTSIDE RECORDS SUMMARY | 2023-10-04 05:25 | External Medical Summary | Summary of Care ---
Author Name Unknown Organization [facility] Address [address] [place] [address] Phone [phone] Care Team Providers Care Optical Mechanic Apprentice Name Role Phone Mario Mosquera MD Primary Care Provider + Reason for Visit * Reason Comments Follow Up Bilateral knee Encounter Details Date Type Department Care Team Description 04/17/2023 Office Visit Orthopaedics [facility] [address] [place] [address] Rafael Sanford MD [address] [place] [address] Primary osteoarthritis of right knee*; Primary osteoarthritis of left knee Allergies No known active allergiesdocumented as of [...] coag clinic 55 Tablet 3 02/11/2023 Active Hospital, Clinic, or Other Facility Administered Medication Ordered Dose Route Frequency Start Date End Date Status lidocaine 1% 1 mL - triamcinolone acetonide 40 mg/mL 1 mL inj 2 mLIndications:Primary osteoarthritis of right knee 2 mL IJ ONCE 04/17/2023 04/17/2023 Ended lidocaine 1% 1 mL - triamcinolone acetonide 40 mg/mL 1 mL inj 2 mLIndications:Primary osteoarthritis of left knee 2 mL IJ ONCE 04/17/2023 04/17/20 23 Ended documented as of this encounter (statuses as of 04/17/2023) Active Problems Problem Noted Date Stenosis of right subclavian artery 11/07 Senile osteoporosis 08/30/2021 Chronic kidney disease, stage 3 unspecif ied 10/24/2020 Adverse reaction to DAYSI inhibitor drug 0 03/17/2020 Overview: AMY with salmonella posioning as well Diastolic dysfunction 11/03/2018 THERESA (obstructive sleep apnea) 11/20/2017 Parathyroid abnormality 08/19/2017 Lupus anticoagulant disorder 10/17/2016 intermediate current use of anticoagulant t herapy 10/01/2016 [...] mRNA, LNP-s, No Pre serve, 2-Dose Series (NONO) 06/17/2021,11/18/2020,10/28/2020 COVID-19, LNP-s, No Preserve , Brennan-sucrose, Ages 12+ (Pfizer) 12/22/2021 Covid-19, Mrna, Lnp-s, Pf, B ivalent, 30 Mcg, IM, 12 yrs and above (NONO) 06/11/2022 H1N1 2009 Influenza, IM 10/01/2009 Pneumococcal [...] Progress Notes * Rafael Sanford MD - 04/17/2023 8:24 AM EDT Andrew Orourke Caron [id number] Andrew Reardon is a 75 year old male who presents for f/u to [facility] for left greater than right knee injury/pain. I saw him originally for this on 03/10/2021 Most recent visit for these issues was on 12/18/2022 Andrew Reardon is here with his Quality: reviewed [...] therefore he got approximately 9-10 months benefit Since that visit: Pt presents for bilateral knee pain. Bilateral knee stiffness and Pain 7/10 x 2 weeks. Last bilateral knee steroid injection on 12/18/22. ROS: ROS per HPI otherwise non-contributory Past Medical History: Diagnosis Date Adverse reaction to DAYSI inhibitor drug 03/17/2020 CAD (coronary artery disease) Diastolic CHF ([facility]) 12/28/2015 Diastolic dysfunction 11/03/2018 Dyslipidemia, goal LDL below 100 08/16/2009 Per Lipid Taxonomy. 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 Regarding the most recent injections from 12/18/22 he got approximately 3.5 months. Previously he had gotten approximately 9 months benefit. Repeat intra-articular steroid injections performed today 04/17/2023. Also recommended patient try viscosupplementation given did not have as longstanding benefit as prior. He will discuss this with his and let me know. We have discussed additional arthritis treatment options including the following: Physical therapy, knee bracing, OTC/prescription medications, topical anti- inflammatory, hyaluronicacid injections (one shot and three shot) 2) Bone lesion R knee Likely bone infarct per discussion with Dr. Cordon ([facility] [place] [facility]) Repeat radiograph 01/31/2022 showed: . Stable appearance [...] Rafael Sanford MD Primary Care Sports Medicine [facility] Orthopa[facility] [address] [facility] [id number] documented in this encounter Nursing Notes * Nelda Nogueira RN - 04/17/2023 8:17 AM EDT Pt presents for bilateral knee pain. Bilateral knee stiffness and Pain /10 x 2 weeks. Last bilateral knee steroid injection on 12/18/22. Nelda Nogueira RN documented in this encounter Plan of Treatment Upcoming Encounters Date Type Specialty Care Team Description 05/22/2023 Anticoagulation Pharmacy Pharmacist1, [facility] [address] [facility] [place] [address] 06/14/2023 Office Visit Internal Medicine Mario Mosquera MD [address] [place] [address] 06/26/2023 Imaging Radiology 06/26/2023 Office Visit Rheumatology Damion Mulligan MD [address] [facility] [place] [address] 08/22/2023 Office Visit Cardiology Noel Knapp PA-C [address] [place] [address] 12/23/2023 Office Visit Endocrinology Hetal Cali MD [address] [facility] [place] [address] Health Maintenance Due Date Last Done [...] D LEVEL ONCE IN A LIFETIME-USE SMARTSET# [id number] Completed 01/16/2023, 06/20/2022, 05/23/2022, Additional history exists [...] this encounter Medical Devices Implanted Type Area Real Estate Developer Device Identifier Shelf Expiration Date Model / Serial / Lot Lens 24.0 Mx60 - [id number] - [id number] Implanted:Qty: 1 on 01/30/2018 by Russell Alaniz MD at [facility] Left: Eye [employer]OM[employer] : SURGICAL 07/09/2020 MX60-24.0 / [id number] / [id number] Envista Hydrophobic Acrylic Intraoular Lens Implanted:Qty: 1 on 02/11/2018 by Russell Alaniz MD at [facility] Right: Eye [employer]OM[employer] 08/08/2020 [id number] / [id number] / [id number] documented as of this encounter Visit Diagnoses Diagnosis Primary osteoarthritis of right knee- Primary Primary localized osteoarthrosis, lower leg Primary osteoarthritis of left knee Primary localized osteoarthrosis, lower leg documented in this encounter Administered Medications Inactive Administered Medications - up to 3 most recent administrations Medication Order MAR Action Action Date Dose Rate Site lidocaine 1% 1 mL - triamcinolone acetonide 40 mg/mL 1 mL inj 2 mL 2 mL, Injection, ONCE, On Sat04/17/23 at 0900, For 1 dose, Lidocaine 1% 1mL Triamcinolone Acetonide 40 mg/mL 1 mL (Final concentration = 20 mg/mL) REFRIGERATE and SHAKE WELL Given 04/17/2023 8:31 AM EDT 2 mL Knee Right lidocaine 1% 1 mL - triamcinolone acetonide 40 mg/mL 1 mL inj 2 mL 2 mL, Injection, ONCE, On Sat04/17/23 at 0900, For 1 dose, Lidocaine 1% 1mL Triamcinolone Acetonide 40 mg/mL 1 mL (Final concentration = 20 mg/mL) REFRIGERATE and SHAKE WELL Given 04/17/2023 8:31 AM EDT 2 mL Knee Left documented [...] and were consensually agreed upon. Care Teams Optical Mechanic Apprentice Relationship Specialty Start Date End Date Mario Mosquera MD [address] [place] [address], [place] [address] PCP - General Internal Medicine 11/09/13 documented as of this encounter
--- NOTE | 2023-10-04 06:28 | Emergency Department Note ---
Impression & Plan Chest pain, Anticoagulated ED Provider Note NAME: JOE BLACK AGE: 78 SEX: Male INFORMANT: Patient ED PROVIDER(S): Miguel Ángel Maldonado MD CHIEF COMPLAINT: Chest pain PLAN: Disposition: Admitted Outpatient prescription management: none Referral: None MEDICAL DECISION MAKING: Patient presented with complaints of chest pain that started today. He noted relief with nitroglycerin and aspirin prehospital. Patient had Nitropaste applied. His chest x-ray was unremarkable. Patient CBC, chemistry panel, LFTs and cardiac troponin negative. Patient is therapeutic on his INR. Patient was reassessed and was doing well. No recurrent pain. Given his cardiac history further management the hospital was deemed appropriate. Consultation was made with Dr. Jay Jay Diehl, [facility] hospitalist service. Patient was evaluated in the ER admitted for further management Care/management discussed with: Discussed with retail merchandising manager Level of care consideration(s): After review of the information above and other included data, I feel the patient requires escalation of care to admission. Triage Nursing notes: reviewed and agree them. Vital Signs: reviewed and remarkable for hypertension Additional History obtained from: Patient's Chronic Medical/Social Conditions affecting care: CAD Prior/ Outside/ External records reviewed: none Differential Diagnosis: Cardiac ischemia, aortic dissection, pulmonary embolism, pneumothorax, pneumonia, pericarditis, myocarditis, esophageal rupture, GERD, cholecystitis, pancreatitis, musculoskeletal, as well as other pathologies. Diagnostics, independently interpreted by me: ECG: Twelve-lead ECG reveals a sinus rhythm with first-degree AV block and PVC with lateral T wave inversions at 67 bpm. PVCs Cardiac Monitoring: Cardiac monitoring ordered by me: The patient was placed on continuous cardiac monitoring and observed. It revealed sinus rhythm with PVCs at 61 bpm. Medical decision rules: none Imaging studies: Chest x-ray. Findings: A chest x-ray was performed and revealed no pneumothorax, effusion, infiltrate, pulmonary edema, free air under the diaphragm, or wide mediastinum. Impression: No acute disease. HPI: 78 year old Male arrives for evaluation of central chest pain. This started tonight. Patient notes he felt nauseated and had some dry heaves. Patient does have history of multiple heart attacks. EMS was summoned. Patient was given aspirin and nitroglycerin. This did resolve his pain. Transport was otherwise uneventful. Pt denies LOC, headache, fevers, chills, diaphoresis, visual changes, neck pain, breathing difficulties, abdominal pain, back pain, melena, hematochezia, urinary symptoms, numbness, weakness, lymphadenopathy, rash, or other complaints. PAST MEDICAL HISTORY: See Below, CAD PAST SURGICAL HISTORY: See Below, SOCIAL HISTORY: See Below, HOME MEDICATIONS: See Below ALLERGIES: See Below VITALS: See Below PHYSICAL EXAMINATION: GENERAL: Awake, alert, well-appearing, in no distress HENT: Normocephalic, atraumatic. Oropharynx unremarkable. EYES: Normal conjunctiva. Sclera non-icteric. NECK: Inspection normal. Non-tender. Supple. No nuchal rigidity. FROM. No masses. RESPIRATORY: Clear to auscultation. No wheezes. No rales. Normal respiratory effort. CARDIAC: Normal rate. Normal rhythm. No murmurs. No rubs. Extremities warm and well perfused. Pulses equal. No JVD. GI: Soft, non-distended. No tenderness to palpation. No rebound or guarding. No masses. RECTAL: Deferred. MUSCULOSKELETAL: Atraumatic. Chest examination reveals no tenderness. The back is symmetrical on inspection without obvious abnormality. There is no CVA tenderness to palpation. No joint edema. LOWER EXTREMITIES: Calves are equal size bilaterally and non-tender. No edema. No discoloration. NEURO: Normal sensorium. No sensory or motor deficits noted. SKIN: No rash or jaundice noted. PROCEDURES: none CRITICAL CARE: none OBSERVATION NOTE: none Past Med/Surg History Medical History (Updated 10/04/23 @ 06:27 by Miguel Ángel Maldonado MD) Aortic 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 Carpal tunnel syndrome of right wrist Diverticulosis of colon Hypospadias Vitamin deficiency Low bone mass Alcohol use Diastolic CHF HTN (hypertension) CAD (coronary artery disease) "2009 - NSTEMI 2012 - anterolateral STEMI, s/p POBA to LAD diagonal artery occlusion" Surgical History Carpal tunnel syndrome History of total right hip replacement Family History Other Diabetes Heart disease Social History Smoking Status: Former smoker Tobacco Type: Cigarettes packs per day: 0.5; Do You Dip or Chew Tobacco: No; Hx Alcohol Use: Yes Alcohol type: beer Alcohol Intake Frequency: 4 or More x per/Week Hx Substance Use: No Preferred Language: Occitan Communication Ability: Effective Visual Impairment: No Limitations Hearing Ability: Normal Stock Buyer Required: No Beliefs That Will Affect Care: None marital status: Current Living Situation: Spouse current occupational status: retired Feels Safe at Home: Yes Assistive Devices: None Allergies Allergies Allergy/AdvReac Type Severity Reaction Status Date / Time No Known Allergies Allergy Verified 10/04/23 00:37 Home Meds Home Medications Medication Instructions Recorded Confirmed aspirin 81 mg tablet,delayed 81 mg PO QAM 05/04/19 10/04/23 release esomeprazole magnesium 40 mg 40 mg PO [facility] 05/04/19 10/04/23 capsule,delayed release isosorbide mononitrate 120 mg 120 mg PO [facility] 05/04/19 10/04/23 tablet,extended release 24 hr nitroglycerin 0.4 mg sublingual 0.4 mg sublingual .COMPLEX 05/04/19 10/04/23 tablet (Nitrostat) vitamin B complex 1 tab PO [facility] 05/04/19 10/04/23 cyanocobalamin (vitamin B-12) 5,000 mcg sublingual DAILY 02/22/20 10/04/23 5,000 mcg sublingual tablet lisinopril 20 mg tablet 20 mg PO [facility] 05/06/20 10/04/23 ezetimibe 10 mg tablet 10 mg PO DAILY 02/10/21 10/04/23 rosuvastatin 40 mg tablet 40 mg PO DAILY 02/10/21 10/04/23 metoprolol succinate 50 mg 75 mg PO DAILY 05/21/21 10/04/23 tablet,extended release 24 hr amlodipine 5 mg tablet 5 mg PO DAILY 10/04/23 10/04/23 multivitamin with minerals-folic 1 tab PO DAILY 10/04/23 10/04/23 acid 400 mcg-lycopene 370 mcg tablet (One-A-Day Men's 50 Plus) warfarin 1 mg tablet 1 mg PO UD 10/04/23 10/04/23 warfarin 5 mg tablet 0 mg PO UD 10/04/23 10/04/23 Results & Data (ED) Vital Signs Vital Signs - 24 hr 10/03/23 23:59 10/04/23 00:00 10/04/23 00:00 Temperature 36.6 C Temperature Source Oral Pulse Rate 68 65 Pulse Rate [Apical] Respiratory Rate 18 Respiratory Effort / Characteristics Respiratory Depth Blood Pressure 133/83 Blood Pressure [Right Arm] Blood Pressure Mean 99 Blood Pressure Mean [Right Arm] Pulse Oximetry 99 Oxygen Delivery Method Room Air Room Air Sepsis Recent Fever Within 48 Hours No Sepsis New/Unexplained Change in Mental Status No Sepsis Action Taken by Nursing No Action Required 10/04/23 00:00 10/04/23 00:34 10/04/23 02:00 Temperature 36.6 C Temperature Source Oral Pulse Rate 65 Pulse Rate [Apical] 54 L Respiratory Rate 18 17 18 Respiratory Effort / Characteristics Non-Labored Non-Labored Respiratory Depth Normal Normal Blood Pressure Blood Pressure [Right Arm] 133/83 135/78 Blood Pressure Mean Blood Pressure Mean [Right Arm] 99 97 Pulse Oximetry 96 96 96 Oxygen Delivery Method Room Air Sepsis Recent Fever Within 48 Hours Sepsis New/Unexplained Change in Mental Status Sepsis Action Taken by Nursing 10/04/23 04:01 10/04/23 04:21 Temperature Temperature Source Pulse Rate 58 L Pulse Rate [Apical] 58 L Respiratory Rate 24 Respiratory Effort / Characteristics Respiratory Depth Blood Pressure Blood Pressure [Right Arm] 150/64 H Blood Pressure Mean Blood Pressure Mean [Right Arm] 92 Pulse Oximetry 95 Oxygen Delivery Method Sepsis Recent Fever Within 48 Hours Sepsis New/Unexplained Change in Mental Status Sepsis Action Taken by Nursing Laboratory Data 10/04/23 00:00 10/04/23 00:00 Lab Results 10/04/23 Range/Units 00:00 WBC 3.57 L (4.8-10.8) K/ul RBC 4.91 (4.70-6.10) M/uL Hgb 15.0 (14.0-18.0) g/dl Hct 44.3 (42.0-52.0) % MCV 90.2 (80.0-100.0) fL MCH 30.5 (25.0-34.0) pg MCHC 33.9 (32.0-36.0) g/dL RDW Std Deviation 41.9 (36.4-46.3) fL RDW Coeff of Sena 12.9 (11.5-14.5) % Plt Count 155 (130-400) K/uL MPV 10.9 (9.4-12.4) fL Immature Gran % (Auto) 0.3 % Neut % (Auto) 57.4 % Lymph % (Auto) 27.5 % Kimball % (Auto) 10.6 % Eos % (Auto) 3.9 % Baso % (Auto) 0.3 % Neut # (Auto) 2.05 (1.40-6.50) K/uL Lymph # (Auto) 0.98 L (1.20-3.40) K/uL Kimball # (Auto) 0.38 (0.11-0.59) K/uL Eos # (Auto) 0.14 (0.00-0.50) K/uL Baso # (Auto) 0.01 (0.00-0.20) K/uL Immature Gran # (Auto) 0.01 (0.01-0.20) K/uL PT 26.7 H (9.0-12.0) Seconds INR 2.6 H (0.9-1.1) APTT 43 H (21-31) Seconds PTT Ratio 1.5 Sodium 140 (136-145) mmol/L Potassium 3.7 (3.5-5.1) mmol/L Chloride 107 (98-107) mmol/L Carbon Dioxide 25 (21-32) mmol/L Anion Gap 8 (3-11) BUN 11 (6-23) mg/dl Creatinine 1.00 (0.6-1.4) mg/dl Est Cr Clr Drug Dosing 55.8 ml/min Est GFR ( Amer) 82.6 ml/min Est GFR (Non-Af Amer) 71.3 ml/min BUN/Creatinine Ratio 11.0 (10-20) Glucose 120 H (70-99(Fasting)) mg/dl Calcium 9.4 (8.6-10.3) mg/dl Magnesium 1.9 (1.7-2.4) mg/dl Total Bilirubin 0.7 (0.2-1.0) mg/dl AST 28 (13-39) U/L ALT 20 (7-52) U/L Alkaline Phosphatase 63 (34-104) U/L Troponin I High Sens 8.4 (0-20) pg/ml Total Protein 6.8 (6.0-8.3) gm/dl Albumin 4.4 (3.4-5.0) gm/dl Globulin 2.4 L (2.5-4.0) gm/dl Albumin/Globulin Ratio 1.8 (0.9-2) Lipase 39 (11-82) U/L Administered Medications Lactated Ringer's (Lr) 1,000 mls @ 60 mls/hr IV .[id number] ONE Stop: 10/04/23 20:26 Last Admin: 10/04/23 04:41 Dose: 60 mls/hr Documented By: MED Discontinued Medications Thiamine HCl 100 mg/ Syringe 10 mls @ 2 mls/min IV NOW ONE Stop: 10/04/23 05:19 Last Admin: 10/04/23 06:04 Dose: 2 mls/min Documented By: MED Nitroglycerin (Nitroglycerin 2% Ointment 30gm Tube) 0.5 inch EXT NOW STA Stop: 10/04/23 00:46 Last Admin: 10/04/23 00:49 Dose: 0.5 inch Documented By: AEF Potassium Chloride (Potassium Chloride Crtab 20 Meq Tabcr) 40 meq PO NOW STA Stop: 10/04/23 05:13 Last Admin: 10/04/23 06:12 Dose: 40 meq Documented By: MED Discharge Plan Visit Data Chief Complaint: Chest Pain ED Provider: Miguel Ángel Maldonado Discharge Problem: Chest pain, Anticoagulated Patient Disposition: Admitted As Inpatient Discharge Instructions Interventions: ED Discharge Assessment Last Done: 10/04/23 05:54
--- NOTE | 2023-10-04 06:59 | XRay Report ---
XR chest 1V portable CLINICAL HISTORY: Chest pain, nonspecific COMPARISON STUDY: Chest CT December 25, 2015. Chest radiograph June 06, 2021. FINDINGS: Lung volumes are normal. There is no consolidation to suggest pneumonia. Linear left basila r densities represent atelectasis or scarring. There is no pneumothorax or pleural effusion. Mild ca rdiomegaly. Mediastinal contours are normal. There is no evidence for pulmonary edema. IMPRESSION: No acute cardiopulmonary findings. ACT 112: Negative or not required by law. Electronically signed by: Trip Mckeon M.D. 10/04/2023 6:58 AM
[2023-10-04 07:03] LABS: Chol HDL Ratio 2.3 (0-5)
[2023-10-04 07:10] LABS: Troponin I High Sensitivity 9.3 pg/ml (0-20)
[2023-10-04 09:10] LABS: Estimated Average Glucose 143 mg/dl; Hemoglobin A1C 6.6 % (4.5-5.6)
--- NOTE | 2023-10-04 09:12 | Cardiology Consultation ---
Date of Consultation October 04, 2023 Assessment & Plan (1) ASCVD (arteriosclerotic cardiovascular disease): (2) Chest pain: (3) CAD (coronary artery disease): (4) HTN (hypertension): Plan IMPRESSION: Medically complex 78-year-old male with past medical history significant for coronary artery disease, Peripheral vascular disease, and hypertension. Other past medical history under problem list. Presents with chest discomfort-- somewhat atypical for angina however he does have a history of a nuclear stress 07/2021 which showed bruce-infarct ischemia Cardiac workup has been unremarkable thus far including an EKG without acute ST segment changes and 2 negative high-sensitivity troponins. Recommending medication adjustments. Echocardiogram is pending PLAN: ASCVD/Chest pain: -Start Ranexa 500 mg daily. Will need repeat EKG in 1 week after starting to reassess QTc. -PVCs/PACs noted on telemetry-- unable to increase beta harley due to slow resting heart rate-- continue metoprolol succinate 50 mg daily -Continue Imdur 120 mg daily, Norvasc 5 mg daily, and lisinopril 20 mg daily -Stop Nitro patch. -Recommend patient get up and ambulate in the snyder way-- as long as there is no recurrent chest pain and echocardiogram is stable can consider discharge later this afternoon. -Continue ASA and statin as ordered. -Resume home dose Nexium. Case discussed with Dr. Brown. I spent a total of 40 minutes on the date of service in preparation, delivery, and documentation of the care provided to the patient excluding any time spent in the performance of separately billed services. LEWIS Barajas Department of Cardiology, [facility] This chart was completed in part utilizing Speech Voice Recognition Software. Grammatical errors, random word insertions, pronoun errors, and incomplete sentences are an occasional consequence of this system due to software limitations, ambient noise, and hardware issues. Any formal questions or concerns about the content, text, or information contained within the body of t his dictation should be directly addressed to the provider for clarification. Supervising Physician Co-Signing Physician Notes Patient was seen and examined, chart, medications, telemetry reviewed Follow-up assessment and plan as outlined above. 78-year-old male with diffuse vascular disease and coronary artery disease with chronic stable class 2+ angina pectoris. Symptoms last evening of persistent pain treated with Tylenol, antacids, Nexium, sublingual nitroglycerin with slow to resolve. Symptoms of dry heaves and nausea after above No signs of myocardial injury or ischemia by EKG or cardiac enzymes on ER presentation Recommendations as noted continue prehospital medications. Add Ranexa 500 mg daily Increased risk for coronary intervention given diffuse vascular disease including aorta Increase activities this afternoon and may be discharged to home with outpatient follow-up History of Present Illness Reason for Consultation: Chest pain Requesting Physician: Elina chang Attending Physician: Eber Childs MD History of Present Illness Medically complex 78-year-old male who initially presented to [facility] emergency department due chest discomfort. Yesterday patient spent the day crushing aluminum cans. He uses a mechanical device to do so, does not do this manually. After a long day of doing this activity he went out for a beer or two and had [employer] for dinner. When he got home he developed a pressure sensation in his chest. He initially took Tylenol which did not improve his symptoms. He then took x3 sublingual nitroglycerin which slowly eased his symptoms, however, he developed dry heaving. EMS was summoned. He denies any shortness of breath. No palpitations or lightheadedness. No diaphoresis. States that this felt different than his prior heart attacks, previously felt a crushing chest discomfort that radiated to his jaw. This did not happen. Notes that this is the first time he has had chest pain over the last few years, believes his last episode was back in 2020. In the emergency department EKG revealed sinus rhythm with a first-degree AV block, frequent PVCs 67 bpm Telemetry revealing sinus rhythm with PVCs/PACs in the 60s. High-sensitivity troponin negative x 2. Renal function electrolytes stable. Chest x-ray unremarkable Echocardiogram pending He is currently chest pain-free. Blood pressures are hypertensive however he is just getting his morning medications. Describes himself as an active individual. Enjoys going to camp and spends a lot of time outdoors. Primary outpatient [employer]: Follows with Noel Knapp PA-C Past medical history 1.ASCVD 1.December 13, 2009 NSTEMI. 2.December 2009 coronary angiography with branch vessel coronary disease, 80% narrowing of a sub branch of the LAD with moderate irregularities of other vessels. 3.May 2012 acute anterolateral myocardial infarction secondary to a total occlusion of the LAD diagonal artery status post POBA by Dr. Maier. Residual total occlusion of a posterior branch of the diagonal noted with prior catheterization showing that this vessel was very small in caliber. Additional angiography showed mild, nonobstructive coronary disease with no lesion over 30%. There was moderate LV systolic dysfunction with an LVEF of 40-45% at that time. 4. Nuclear stress 07/2021, moderate bruce-infarct ischemia involving the apical lateral black and apex. Ischemic burden 10% of the myocardium. Medical management recommended. Preserved LV systolic function on prior echo. 2.Severe atherosclerotic plaque(s) in the aortic arch and descending aorta. 3.Left renal and splenic infarctions, July 2016. --On Coumadin 4.Right occipital and left cerebellar infarcts. 5.Lupus anticoagulant disorder 6.Hypertension 7.Dyslipidemia with an optimal LDL goal of < 70 mg/dL. 8.Bilateral internal carotid disease without infarction 9.Right subclavian artery stenosis 10.COPD with past tobacco abuse 11.Reflux esophagitis 12.Parathyroid abnormality, followed by [facility] 13.Osteoarthritis 14.Avascular necrosis of the hips. 15.Left rotator cuff tear and possible avascular necrosis, adhesive capsulitis. 16.Idiopathic peripheral neuropathy 17.Chronic alcohol use/abuse--currently 1-2 beers daily 18.Cervicogenic headaches 19.Diverticulosis/diverticulitis Allergies Allergy/AdvReac Type Severity Reaction Status Date / Time No Known Allergies Allergy Verified 10/04/23 00:37 Home Medications Medication Instructions Recorded Confirmed Type aspirin 81 mg tablet,delayed 81 mg PO QAM 05/04/19 10/04/23 History release esomeprazole magnesium 40 mg 40 mg PO QAM 05/04/19 10/04/23 History capsule,delayed release isosorbide mononitrate 120 mg 120 mg PO QAM 05/04/19 10/04/23 History tablet,extended release 24 hr nitroglycerin 0.4 mg sublingual 0.4 mg sublingual .COMPLEX 05/04/19 10/04/23 History tablet (Nitrostat) vitamin B complex 1 tab PO QAM 05/04/19 10/04/23 History cyanocobalamin (vitamin B-12) 5,000 mcg sublingual DAILY 02/22/20 10/04/23 History 5,000 mcg sublingual tablet lisinopril 20 mg tablet 20 mg PO QAM 05/06/20 10/04/23 History ezetimibe 10 mg tablet 10 mg PO DAILY 02/10/21 10/04/23 History rosuvastatin 40 mg tablet 40 mg PO DAILY 02/10/21 10/04/23 History metoprolol succinate 50 mg 75 mg PO DAILY 05/21/21 10/04/23 History tablet,extended release 24 hr amlodipine 5 mg tablet 5 mg PO DAILY 10/04/23 10/04/23 History multivitamin with minerals-folic 1 tab PO DAILY 10/04/23 10/04/23 History acid 400 mcg-lycopene 370 mcg tablet (One-A-Day Men's 50 Plus) warfarin 1 mg tablet 1 mg PO UD 10/04/23 10/04/23 History warfarin 5 mg tablet 0 mg PO UD 10/04/23 10/04/23 History Patient History Medical History (Updated 10/04/23 @ 06:27 by Miguel Ángel Maldonado MD) Aortic 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 Carpal tunnel syndrome of right wrist Diverticulosis of colon Hypospadias Vitamin deficiency Low bone mass Alcohol use Diastolic CHF HTN (hypertension) CAD (coronary artery disease) "2009 - NSTEMI 2012 - anterolateral STEMI, s/p POBA to LAD diagonal artery occlusion" Surgical History Carpal tunnel syndrome History of total right hip replacement Family History Other Diabetes Heart disease Social History Smoking Status: Former smoker Tobacco Type: Cigarettes packs per day: 0.5; Do You Dip or Chew Tobacco: No; Hx Alcohol Use: Yes Alcohol type: beer Alcohol Intake Frequency: 4 or More x per/Week Hx Substance Use: No Preferred Language: Fijian Communication Ability: Effective Visual Impairment: No Limitations Hearing Ability: Normal Abstract Searcher Required: No Beliefs That Will Affect Care: None marital status: Current Living Situation: Spouse current occupational status: retired Feels Safe at Home: Yes Assistive Devices: None Review of Systems Review of Systems: All systems reviewed & are unremarkable except as noted in HPI & below Physical Exam Constitutional: WD/WN, vitals as above no acute distress Neck: normal visual inspection and trachea midline Respiratory: normal respiratory effort, lungs clear to auscultation Cardiovascular: Rate/Rhythm: regular rate and regular rhythm Heart Sounds: normal S1 and normal S2; no murmur Vessels: no JVD Extremities: no edema Gastrointestinal (Abdomen): normal bowel sounds, soft, nontender, no hepatosplenomegaly Skin: no rashes, warm and dry Neurologic: PERRL, EOMI, accommodation nl, no face palsy, no dysarthria Psychiatric: A+Ox3, euthymic affect Results & Data Vital Signs (Past 12 Hours) Vital Signs Temp Pulse Pulse Resp BP BP Pulse Ox 10/04/23 07:09 56 L 10/04/23 07:00 10/04/23 06:22 36.4 C L 60 18 151/80 H 96 10/04/23 04:21 58 L 24 150/64 H 95 10/04/23 04:01 58 L 10/04/23 02:00 54 L 18 135/78 96 10/04/23 00:34 65 17 96 10/04/23 00:00 36.6 C 18 133/83 96 10/04/23 00:00 10/04/23 00:00 36.6 C 65 18 133/83 99 10/03/23 23:59 68 Pulse Ox O2 Del Method O2 Del Method 10/04/23 07:09 10/04/23 07:00 97 Room Air 10/04/23 06:22 Room Air 10/04/23 04:21 10/04/23 04:01 10/04/23 02:00 Room Air 10/04/23 00:34 10/04/23 00:00 10/04/23 00:00 Room Air 10/04/23 00:00 Room Air 10/03/23 23:59 Laboratory Results Cardiac Enzymes 10/04/23 10/04/23 Range/Units 00:00 06:31 AST 28 (13-39) U/L Troponin I High Sens 8.4 9.3 (0-20) pg/ml Coagulation 10/04/23 Range/Units 00:00 PT 26.7 H (9.0-12.0) Seconds APTT 43 H (21-31) Seconds Lipids 10/04/23 Range/Units 06:31 Triglycerides 124 (0-150) mg/dl Cholesterol 143 (0-200) mg/dl HDL Cholesterol 61 mg/dl Cholesterol/HDL Ratio 2.3 (0-5) CBC 10/04/23 Range/Units 00:00 WBC 3.57 L (4.8-10.8) K/ul RBC 4.91 (4.70-6.10) M/uL Hgb 15.0 (14.0-18.0) g/dl Hct 44.3 (42.0-52.0) % Plt Count 155 (130-400) K/uL Neut # (Auto) 2.05 (1.40-6.50) K/uL Lymph # (Auto) 0.98 L (1.20-3.40) K/uL Howard # (Auto) 0.38 (0.11-0.59) K/uL Eos # (Auto) 0.14 (0.00-0.50) K/uL Baso # (Auto) 0.01 (0.00-0.20) K/uL Comprehensive Metabolic Panel 10/04/23 Range/Units 00:00 Sodium 140 (136-145) mmol/L Potassium 3.7 (3.5-5.1) mmol/L Chloride 107 (98-107) mmol/L Carbon Dioxide 25 (21-32) mmol/L BUN 11 (6-23) mg/dl Creatinine 1.00 (0.6-1.4) mg/dl Glucose 120 H (70-99(Fasting)) mg/dl Calcium 9.4 (8.6-10.3) mg/dl AST 28 (13-39) U/L ALT 20 (7-52) U/L Alkaline Phosphatase 63 (34-104) U/L Total Protein 6.8 (6.0-8.3) gm/dl Albumin 4.4 (3.4-5.0) gm/dl Intake and Output 10/03/23 10/04/23 10/04/23 22:59 06:59 14:59 Other: Weight 65.9 kg Weight Measurement Method Built in [facility]
[2023-10-04] MEDS: MULTIVITAMIN TAB PO SCH (09:29)
[2023-10-04] MEDS: FOLIC ACID 1 MG TAB PO SCH (09:29)
[2023-10-04] MEDS: VITAMIN B COMPLEX TAB PO SCH (11:06)
[2023-10-04] MEDS: CEROVITE ADV FORMULA TAB PO SCH (11:06)
[2023-10-04] MEDS: lisinopril 20 MG TAB PO SCH (11:07)
[2023-10-04] MEDS: ROSUVASTATIN CALCIUM 20 MG TAB PO SCH (11:07)
[2023-10-04] MEDS: EZETIMIBE 10 MG TAB PO SCH (11:07)
[2023-10-04] MEDS: amLODIPine BESYLATE 5 MG TAB PO SCH (11:07)
[2023-10-04] MEDS: METOPROLOL SUCC 50MG EXT REL TAB PO SCH (11:07)
[2023-10-04] MEDS: ISOSORBIDE MONO EXTENDED REL 60 MG TABCR PO SCH (11:08)
[2023-10-04] MEDS: ASPIRIN 81 MG ECTAB PO SCH (11:09)
[2023-10-04] MEDS: PANTOprazole 40 MG TAB PO SCH (11:11)
[2023-10-04] MEDS: RANOLAZINE 500 MG ER TAB PO SCH (13:53)
--- NOTE | 2023-10-04 16:23 | Hospitalist Progress Note ---
Date of Service October 04, 2023 Assessment & Plan (1) Chest pain: Plan: Chest pain Chronic angina pectoris PACs/PVCs likely contributing to chest pain as well CAD, PVD S/P angioplasty --ECHO: Sinus bradycardia. Left ventricle is normal in size. Mild concentric LVH. Mild hypokinesis inferior, posterior base otherwise normal wall motion. EF 50 to 55%. Grade 1 diastolic dysfunction. Aortic valve sclerosis mild, without significant aortic valvular stenosis. --Wall motion abnormality also noted on prior ECHO --Negative Troponin X2 --Lipid panel normal Continue aspirin, isosorbide, metoprolol, rosuvastatin Added Ranexa Appreciate cardiology input Nitroglycerin discontinued Could not increase dose of metoprolol due to baseline bradycardia Patient is at increased risk for coronary intervention given diffuse vascular disease including aorta Likely discharge in next 24 hours if remains stable Continue pantoprazole DM II: New Diagnosis HbA1C:6.6 H/O Prediabetes On insulin sliding scale hospice educator consulted Monitor BGs Chronic diastolic heart failure No signs of volume overload currently Continue home medications Monitor volume status Paroxysmal atrial fibrillation Hypercoagulable state (H/O lupus anticoagulant disorder/left renal and splenic infarctions) Continue metoprolol Continue Coumadin for anticoagulation INR 2.6 today Hyperlipidemia on statin COPD No signs of exacerbation Prediabetes HbA1C:5.6 in 2021 Alcohol abuse as per records: Monitor for withdrawal. Continue thiamine, folic acid Past tobacco abuse DVT Px: Coumadin Code Status Full code Admission and Anticipated Discharge Date Admission Date: October 04, 2023 Subjective Patient is seen and examined at bedside Chest pain, nausea resolved Denies any dyspnea, dizziness, abdominal pain, cough No other complaints Review of Systems Review of Systems: All systems reviewed & are unremarkable except as noted in Subjective Physical Exam Physical Exam: Physical Exam: Vitals signs as noted above General Appearance:Moderately built and nourished, no apparent distress Head: normocephalic, Atraumatic Eyes: normal inspection, EOMI Neck: supple, Trachea midline Respiratory/Chest: Normal breath sounds, CTA, No accessory muscle use Cardiovascular: S1, S2, No murmur Abdomen/GI:Soft, Non tender, Bowel sounds present Extremities/Musculoskeletal:normal inspection, no edema Neurologic/Psych:AAOX3, grossly no focal neurological deficits Skin: normal color, warm Results & Data Results & Data Vital Signs (Past 12 Hours) Vital Signs Temp Pulse Pulse Resp BP BP Pulse Ox 10/04/23 15:00 58 L 10/04/23 14:57 63 20 135/109 H 93 10/04/23 08:01 60 16 97 10/04/23 08:01 137/71 10/04/23 08:00 64 20 97 10/04/23 07:30 64 18 97 10/04/23 07:30 147/101 H 10/04/23 07:09 56 L 10/04/23 07:00 58 L 19 97 10/04/23 07:00 155/71 H 10/04/23 07:00 10/04/23 06:32 71 19 97 10/04/23 06:32 145/83 H 10/04/23 06:22 36.4 C L 60 18 151/80 H 96 10/04/23 06:01 60 18 95 10/04/23 06:01 151/80 H 10/04/23 06:00 63 16 96 10/04/23 05:30 61 19 96 10/04/23 05:30 146/102 H 10/04/23 05:00 69 21 95 10/04/23 05:00 139/84 10/04/23 04:30 59 L 20 95 10/04/23 04:30 139/86 10/04/23 04:21 58 L 24 150/64 H 95 Pulse Ox O2 Del Method O2 Del Method 10/04/23 15:00 10/04/23 14:57 Room Air 10/04/23 08:01 10/04/23 08:01 10/04/23 08:00 10/04/23 07:30 10/04/23 07:30 10/04/23 07:09 10/04/23 07:00 10/04/23 07:00 10/04/23 07:00 97 Room Air 10/04/23 06:32 10/04/23 06:32 10/04/23 06:22 Room Air 10/04/23 06:01 10/04/23 06:01 10/04/23 06:00 10/04/23 05:30 10/04/23 05:30 10/04/23 05:00 10/04/23 05:00 10/04/23 04:30 10/04/23 04:30 10/04/23 04:21 Laboratory Results Short CBC 10/04/23 Range/Units 00:00 WBC 3.57 L (4.8-10.8) K/ul Hgb 15.0 (14.0-18.0) g/dl Hct 44.3 (42.0-52.0) % Plt Count 155 (130-400) K/uL BMP 10/04/23 00:00 Sodium 140 Potassium 3.7 Chloride 107 Carbon Dioxide 25 BUN 11 Creatinine 1.00 Glucose 120 H Calcium 9.4 Liver Function 10/04/23 Range/Units 00:00 Total Bilirubin 0.7 (0.2-1.0) mg/dl AST 28 (13-39) U/L ALT 20 (7-52) U/L Alkaline Phosphatase 63 (34-104) U/L Albumin 4.4 (3.4-5.0) gm/dl
[2023-10-04] MEDS ORDERED: DEXTROSE 50% 50 ML SYRINGE IV PRN (16:59)
[2023-10-04] MEDS ORDERED: GLUCOSE 10 TAB/TUBE PO PRN (16:59)
[2023-10-04] MEDS ORDERED: CARBOHYDRATES FOR HYPOGLYCEMIA PO PRN (16:59)
[2023-10-04] MEDS ORDERED: GLUCOSE 40% GEL 15 GM TUBE PO PRN (16:59)
[2023-10-04] MEDS ORDERED: GLUCAGON FOR INJ 1 MG VIAL SQ PRN (16:59)
--- NOTE | 2023-10-04 17:29 | Electrocardiogram Report ---
Test Reason : Blood Pressure : / mmHG Vent. Rate : 067 BPM Atrial Rate : 067 BPM P-R Int : 234 ms QRS Dur : 086 ms QT Int : 404 ms P-R-T Axes : 094 025 094 degrees QTc Int : 426 ms Sinus rhythm with 1st degree A-V block with frequent Premature ventricular complexes Abnormal ECG When compared with ECG of 06-JUN-2021 02:27, Premature ventricular complexes are now Present Aberrant conduction is no longer Present Confirmed by Tommie Vee ([id number]) on 10/04/2023 5:28:59 PM Referred By: REFERRED SELF Confirmed By:Ronald Vee
[2023-10-04] MEDS ORDERED: WARFARIN SOD 2.5 MG TAB PO SCH (17:45)
[2023-10-04] MEDS: INSULIN ASPART PER UNIT CHARGE SC SCH (20:51)
--- NOTE | 2023-10-05 06:39 | Cardiology Progress Note ---
Date of Service October 05, 2023 Assessment & Plan (1) ASCVD (arteriosclerotic cardiovascular disease): (2) Chest pain: (3) CAD (coronary artery disease): (4) HTN (hypertension): Plan IMPRESSION: Medically complex 78-year-old male with past medical history significant for coronary artery disease, Peripheral vascular disease, and hypertension. Other past medical history under problem list. Presents with chest discomfort-- somewhat atypical for angina however he does have a history of a nuclear stress 07/2021 which showed bruce-infarct ischemia Cardiac workup has been unremarkable thus far including an EKG without acute ST segment changes and 2 negative high-sensitivity troponins. Echocardiogram revealed a low normal LVEF of 50 to 55% with mild hypokinesis of the inferior and posterior black. Grade 1 diastolic dysfunction. Aortic sclerosis without stenosis. PLAN: ASCVD/Chest pain: -Increased risk for coronary intervention given diffuse vascular disease including aorta -No return of CP. Continue Ranexa 500 mg daily. EKG with stable QTc this a.m. Recommend repeat EKG as an outpatient in 1 month to reassess QTc interval. -PVCs/PACs noted on telemetry-- unable to increase beta harley due to slow resting heart rate-- continue metoprolol succinate 50 mg daily -Continue Imdur 120 mg daily, Norvasc 5 mg daily, and lisinopril 20 mg daily -Stop Nitro patch. -Continue ASA and statin as ordered. -Resume home dose Nexium. -Increase activities and patient may be discharged to home with outpatient follow-up Case discussed with Dr. Cedeno. No further recommendations from a cardiology standpoint. Will arrange outpatient follow up in 4-6 weeks. Okay for discharge. I spent a total of 30 minutes on the date of service in preparation, delivery, and documentation of the care provided to the patient excluding any time spent in the performance of separately billed services. LEWIS Barajas Department of Cardiology, [facility] This chart was completed in part utilizing Speech Voice Recognition Software. Grammatical errors, random word insertions, pronoun errors, and incomplete sentences are an occasional consequence of this system due to software limitations, ambient noise, and hardware issues. Any formal questions or concerns about the content, text, or information contained within the body of this dictation should be directly addressed to the provider for clarification. Admission and Anticipated Discharge Date Admission Date: October 04, 2023 Supervising Physician Co-Signing Physician Notes Attending attestation: I have reviewed the advanced practitioner's documentation, and agree with, and take responsibility for the plan of care. Subjective: Patient feels well. No additional chest pain. Ambulating well in the unit. Telemetry reveals SR in the 60s with occasional isolated PVCs. Exam: CV: regular , no murmurs, no edema Data: EKG performed 10/05/2023 at 5:13 AM reviewed independently: Sinus rhythm at 60 bpm with first-degree AV block nonspecific ST-T wave changes in inferior lateral leads QTc 436 ms, relatively unchanged compared to previous tracing dating back to 05/22/2021. INR 2.7 Impression/ Plan: -Chest pain with known underlying CAD. Troponin levels without elevation. EKG with stable findings. -Continue medical therapy with addition of Ranexa. -Stable from cardiology perspective for discharge. I spent a total of 20 minutes coordinating, documenting, and providing care for this patient excluding time spent in the performance of separately billed services or time spent by another provider. Willem Cedeno, DO Subjective Medically complex 78-year-old male with diffuse vascular disease and coronary artery disease with chronic stable class 2+ angina pectoris. Symptoms last evening of persistent pain treated with Tylenol, antacids, Nexium, sublingual nitroglycerin with slow to resolve. No signs of myocardial injury or ischemia by EKG or cardiac enzymes on ER presentation. Echocardiogram revealed a low normal LVEF of 50 to 55% with mild hypokinesis of the inferior and posterior black. Grade 1 diastolic dysfunction. Aortic sclerosis without stenosis. Patient was deemed high risk for any coronary intervention given diffuse vascular disease including the aorta and medical management was again recommended. Ranexa 500 mg daily started. EKG this morning showing sinus rhythm with a first-degree AV block and an occasional PVC, 63 bpm. QTc stable at 429 ms. Telemetry: SR with PVCs 50-60s Upon entrance into the room patient resting in bed. No return of chest pain. Denies SOB. No palpitations or lightheadedness. No orthopnea or PND. No lower extremity edema. Eager for discharge. Review of Systems Review of Systems: All systems reviewed & are unremarkable except as noted in HPI & below Physical Exam Constitutional: WD/WN, vitals as above no acute distress Neck: normal visual inspection and trachea midline Respiratory: normal respiratory effort, lungs clear to auscultation Cardiovascular: Rate/Rhythm: regular rate and regular rhythm Heart Sounds: normal S1 and normal S2; no murmur Vessels: no JVD Extremities: no edema Gastrointestinal (Abdomen): normal bowel sounds, soft, nontender, no hepatosplenomegaly Skin: no rashes, warm and dry Neurologic: PERRL, EOMI, accommodation nl, no face palsy, no dysarthria Psychiatric: A+Ox3, euthymic affect Results & Data Vital Signs (Past 12 Hours) Vital Signs Temp Pulse Pulse Resp BP BP Pulse Ox 10/05/23 03:40 36.4 C L 66 16 139/70 96 10/04/23 22:53 36.5 C 60 16 130/70 95 10/04/23 21:59 53 L 10/04/23 19:30 10/04/23 19:06 36.8 C 69 22 134/69 96 O2 Del Method 10/05/23 03:40 Room Air 10/04/23 22:53 Room Air 10/04/23 21:59 10/04/23 19:30 Room Air 10/04/23 19:06 Room Air
[2023-10-05 07:16] LABS: Basophils # (auto) 0.02 K/uL (0.00-0.20); Basophils % (auto) 0.7 %; Eosinophils % (auto) 3.3 %; Hematocrit (blood only) 44.1 % (42.0-52.0); Hemoglobin 15.5 g/dl (14.0-18.0); Lymphocytes % (auto) 23.4 %; Mean Corpuscular Hemoglobin 31.2 pg (25.0-34.0); Mean Corpuscular Hgb Conc 35.1 g/dL (32.0-36.0); Mean Corpuscular Volume 88.7 fL (80.0-100.0); Mean Platelet Volume 10.7 fL (9.4-12.4); Monocytes # (auto) 0.25 K/uL (0.11-0.59); Monocytes % (auto) 8.4 %; Neutrophils # (auto) 1.92 K/uL (1.40-6.50); Neutrophils % (auto) 64.2 %; Platelet Count 138 K/uL (130-400); RDW Coefficient of Variation 13.1 % (11.5-14.5); RDW Standard Deviation 42.7 fL (36.4-46.3); Red Blood Count 4.97 M/uL (4.70-6.10); White Blood Count 2.99 K/ul (4.8-10.8)
[2023-10-05] MEDS: INSULIN ASPART PER UNIT CHARGE SC SCH ×2 (07:46→12:09)
[2023-10-05 07:59] LABS: BUN Creatinine Ratio 9.9 (10-20); Calcium 9.6 mg/dl (8.6-10.3); Creatinine Clr Calc Pharmacy 59.3 ml/min; Est GFR (African American) 92.6 ml/min; Est GFR (Non-African American) 79.9 ml/min; Potassium 4.2 mmol/L (3.5-5.1)
[2023-10-05 08:08] LABS: INR 2.7 (0.9-1.1); Prothrombin Time 28.2 Seconds (9.0-12.0)
[2023-10-05] MEDS: ROSUVASTATIN CALCIUM 20 MG TAB PO SCH (08:10)
[2023-10-05] MEDS: FOLIC ACID 1 MG TAB PO SCH (08:10)
[2023-10-05] MEDS: VITAMIN B COMPLEX TAB PO SCH (08:10)
[2023-10-05] MEDS: MULTIVITAMIN TAB PO SCH (08:10)
[2023-10-05] MEDS: PANTOprazole 40 MG TAB PO SCH (08:10)
[2023-10-05] MEDS: CEROVITE ADV FORMULA TAB PO SCH (08:10)
[2023-10-05] MEDS: ASPIRIN 81 MG ECTAB PO SCH (08:10)
[2023-10-05] MEDS: EZETIMIBE 10 MG TAB PO SCH (08:11)
[2023-10-05] MEDS: METOPROLOL SUCC 50MG EXT REL TAB PO SCH (08:11)
[2023-10-05] MEDS: lisinopril 20 MG TAB PO SCH (08:11)
[2023-10-05] MEDS: amLODIPine BESYLATE 5 MG TAB PO SCH (08:11)
[2023-10-05] MEDS: ISOSORBIDE MONO EXTENDED REL 60 MG TABCR PO SCH (08:11)
[2023-10-05] MEDS: RANOLAZINE 500 MG ER TAB PO SCH (08:11)
[2023-10-05] MEDS ORDERED: THIAMINE HCL 100 MG TAB PO SCH (09:00)
--- OUTSIDE RECORDS SUMMARY | 2023-10-05 09:44 | External Medical Summary | Summary of Care ---
Author Name Unknown Organization [facility] Address [address] [place] [address] Phone [phone] Care Team Providers Care Billet Checker Name Role Phone Mario Mosquera MD Primary Care Provider + Encounter Details Date Type Department Care Team (Late st Contact Info) Description 10/04/2023 Telephone Cardiology, [facility] [address] [place] [address] Lea Kwong CRNP [address] [facility] [place] [address] Allergies No known active allergiesdocumented as of this encounter (statuses as of 10/04/2023) Medications Medication Sig Dispensed Refills Start Date [...] atrial fibrillation) (HCC) TAKE 5MG (1 TABLET) TU & SAT 2.5MG (1/2 TABLET) ALL OTHER DAYS BY MOUTH OR DIRECTED. 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 Severe atherosclerotic plaque(s) in the descending aorta PAF (paroxysmal atrial fibrillation) 07/27/2016 High risk for fracture due to osteoporosis by DE XA scan 06/18/2016 Old MD (myocardial infarction) 06/06/2012 Mixed hyperlipidemia 08/16/2009 Overview: [...] as of this encounter (statuses as of 10/04/2023) Resolved Problems Problem Noted Date Diagnosed Date [...] 06/18/2016 08/19/2017 Diastolic CHF 12/28/2015 11/03/2018 Acute MD 05/30/2012 06/06/2012 Chronic ischemic heart disease 01/17/2007 12/25/2018 Pneumonia due to organism Overview: ICD-10 update of inactive term IDIO PERIPH NEURPTHY NOS 07/2018 PURE HYPERCHOLESTEROLEM 04/2009 Overview: Per Lipid Taxonomy. documented as of this encounter (statuses as of 10/04/2023) Immunizations Name Administration Dates Next Due COVID-19 mRNA, LNP-s, No Pre serve, 2-Dose Series (VaxInnate) 06/17/2021,11/18/2020,10/28/2020 COVID-19, LNP-s, No Preserve , Brennan-sucrose, Ages 12+ (VaxInnate) 12/22/2021 Covid-19, Mrna, Lnp-s, Pf, B ivalent, 30 Mcg, IM, 12 yrs and above (VaxInnate) 06/29/2023,06/11/2022 H1N1 2009 Influenza, IM 10/01/2009 Pneumococcal [...] encounter Miscellaneous Notes * Telephone Encounter - Claudia Huston OSA - 10/04/2023 11:53 AM EST Scheduled 11/10 at 3:00. * Telephone Encounter - Lea Kwong CRNP - 10/04/2023 11:46 AM EST Patient admitted to [facility] on 10/04. Anticipate Discharge within the next 24 to 48 hours. Scheduling: Please assist with [facility] follow-up within the next 4-6 weeks. Patient has followed with Noel Knapp in the past. Please allow 60 minutes for this appointment and label appt [facility]. Thanks, LEWIS Otto Cardiology consult 10/04/2023: Medically complex 78-year-old male with past medical history significant for coronary artery disease, Peripheral vascular disease, and hypertension. Other past medical history under problem list. Presents with chest discomfort-- somewhat atypical for angina however he does have a history of a nuclear stress 07/2021 which showed bruce-infarct ischemia Cardiac workup has been unremarkable thus far including an EKG without acute ST segment changes and2 negative high-sensitivity troponins. Recommending medication adjustments. Echocardiogram is pending PLAN: ASCVD/Chest pain: -Start Ranexa 500 mg daily. Will need repeat EKG in 1 week after starting to reassess QTc. -PVCs/PACs noted on telemetry-- unable to increase beta harley due to slow resting heart rate-- continue metoprolol succinate 50 mg daily -Continue Imdur 120 mg daily, Norvasc 5 mg daily, and lisinopril 20 mg daily -Stop Nitro patch. -Recommend patient get up and ambulate in the snyder way-- as long as there is no recurrent chest pain and echocardiogram is stable can consider discharge later this afternoon. -Continue ASA and statin as ordered. -Resume home dose Nexium. documented in this encounter Plan of Treatment Upcoming Encounters Date Type Department Care Team (Late st Contact Info) Description 10/21/2023 8:00 AM EST Anticoagulation Pharmacy, [facility] [address] [facility] [place] [address] Pharmacist1, [facility] [address] [facility] [place] [address] 11/11/2023 3:00 PM EST Office Visit Cardiology, [facility] [address] [place] [address] Noel Knapp PA-C [address] [place] [address] 12/23/2023 1:40 PM EDT Office Visit Endocrinology, [place] [address] [place] [address] Hetal Cali MD [address] [facility] [place] [address] 12/27/2023 8:40 AM EDT Office Visit General Internal Medicine [facility] [address] [facility] [place] [address] Mario Mosquera MD [address] [facility] [place], [place] [address] 06/30/2024 9:40 AM EDT Office Visit Rheumatology [place] [id number] [place] [address] Damion Mulligan MD [address] [place] [address] Health Maintenance Due Date Last Done Comments [...] D LEVEL ONCE IN A LIFETIME-USE SMARTSET# [id number] Completed 06/26/2023, 01/16/2023, 06/20/2022, Additional history exists [...] this encounter Medical Devices Implanted Type Area Collar Turner Device Identifier Shelf Expiration Date Model / Serial / Lot Lens 24.0 Mx60 - [id number] - [id number] Implanted:Qty: 1 on 01/30/2018 by Russell Alaniz MD at OR [facility] Left: Eye BAUSCH & LOMB : SURGICAL 07/09/2020 MX60-24.0 / [id number] / [id number] Envista Hydrophobic Acrylic Intraoular Lens Implanted:Qty: 1 on 02/11/2018 by Russell Alaniz MD at OR [facility] Right: Eye BAUSCH [employer] LOMB 08/08/2020 [id number] / [id number] / [id number] documented as of this encounter Advance Directives [...] and were consensually agreed upon. Care Teams Billet Checker Relationship Specialty Start Date End Date Mario Mosquera MD [address] [facility] [place], [place] [address] PCP - General Internal Medicine 11/09/13 documented as of this encounter
--- NOTE | 2023-10-05 10:24 | Electrocardiogram Report ---
Test Reason : Blood Pressure : / mmHG Vent. Rate : 063 BPM Atrial Rate : 063 BPM P-R Int : 230 ms QRS Dur : 074 ms QT Int : 420 ms P-R-T Axes : 103 -07 114 degrees QTc Int : 429 ms Poor data quality, interpretation may be adversely affected Sinus rhythm with 1st degree A-V block with occasional Premature ventricular complexes Septal infarct , age undetermined Abnormal ECG When compared with ECG of 03-OCT-2023 23:56, No significant change was found Confirmed by Ryan Butler ([id number]) on 10/05/2023 10:24:32 AM Referred By: REFERRED SELF Confirmed By:Ryan Butler
--- NOTE | 2023-10-05 10:25 | Electrocardiogram Report ---
Test Reason : Blood Pressure : / mmHG Vent. Rate : 060 BPM Atrial Rate : 060 BPM P-R Int : 230 ms QRS Dur : 082 ms QT Int : 436 ms P-R-T Axes : 075 -09 114 degrees QTc Int : 436 ms Poor data quality, interpretation may be adversely affected Sinus rhythm with 1st degree A-V block Nonspecific T wave abnormality Abnormal ECG When compared with ECG of 05-OCT-2023 05:11, (unconfirmed) Premature ventricular complexes are no longer Present Criteria for Septal infarct are no longer Present Confirmed by Ryan Butler ([id number]) on 10/05/2023 10:24:53 AM Referred By: REFERRED SELF Confirmed By:Ryan Butler
--- NOTE | 2023-10-05 11:32 | Hospitalist Progress Note ---
Date of Service October 05, 2023 Assessment & Plan (1) Chest pain: Plan: Chest pain Chronic angina pectoris PACs/PVCs likely contributing to chest pain as well CAD, PVD S/P angioplasty --ECHO: Sinus bradycardia. Left ventricle is normal in size. Mild concentric LVH. Mild hypokinesis inferior, posterior base otherwise normal wall motion. EF 50 to 55%. Grade 1 diastolic dysfunction. Aortic valve sclerosis mild, without significant aortic valvular stenosis. --Wall motion abnormality also noted on prior ECHO --Negative Troponin X2 --Lipid panel normal Continue aspirin, isosorbide, metoprolol, rosuvastatin Added Ranexa Appreciate cardiology input Nitroglycerin discontinued Could not increase dose of metoprolol due to baseline bradycardia Patient is at increased risk for coronary intervention given diffuse vascular disease including aorta Continue pantoprazole Needs follow-up with cardiology on discharge Plan to be discharged home today DM II: New Diagnosis HbA1C:6.6 H/O Prediabetes On insulin sliding scale telehealth nurse educator consulted Monitor BGs Plan to discharge home metformin. Advised to follow-up with PCP for further adjustment of medications as needed Chronic diastolic heart failure No signs of volume overload currently Continue home medications Monitor volume status Paroxysmal atrial fibrillation Hypercoagulable state (H/O lupus anticoagulant disorder/left renal and splenic infarctions) Continue metoprolol Continue Coumadin for anticoagulation INR 2.7 today Hyperlipidemia on statin COPD No signs of exacerbation Prediabetes HbA1C:5.6 in 2021 Alcohol abuse as per records: Monitor for withdrawal. Continue thiamine, folic acid Past tobacco abuse DVT Px: Coumadin Code Status Full code Disposition Home Admission and Anticipated Discharge Date Admission Date: October 04, 2023 Subjective Patient is seen and examined at bedside States feeling well today Offers no new complaints Chest pain resolved Ambulated in hallway with no issues Discussed with cardiology today Denies any dyspnea, dizziness, abdominal pain, cough Plan to be discharged home today Review of Systems Review of Systems: All systems reviewed & are unremarkable except as noted in Subjective Physical Exam Physical Exam: Physical Exam: Vitals signs as noted above General Appearance:Moderately built and nourished, no apparent distress Head: normocephalic, Atraumatic Eyes: normal inspection, EOMI Neck: supple, Trachea midline Respiratory/Chest: Normal breath sounds, CTA, No accessory muscle use Cardiovascular: S1, S2, No murmur Abdomen/GI:Soft, Non tender, Bowel sounds present Extremities/Musculoskeletal:normal inspection, no edema Neurologic/Psych:AAOX3, grossly no focal neurological deficits Skin: normal color, warm Results & Data Results & Data Vital Signs (Past 12 Hours) Vital Signs Temp Pulse Pulse Resp BP Pulse Ox O2 Del Method 10/05/23 09:18 Room Air 10/05/23 08:35 37.0 C 66 17 136/68 94 Room Air 10/05/23 07:00 64 10/05/23 03:40 36.4 C L 66 16 139/70 96 Room Air Laboratory Results Short CBC 10/05/23 Range/Units 06:42 WBC 2.99 L (4.8-10.8) K/ul Hgb 15.5 (14.0-18.0) g/dl Hct 44.1 (42.0-52.0) % Plt Count 138 (130-400) K/uL BMP 10/05/23 06:42 Sodium 140 Potassium 4.2 Chloride 107 Carbon Dioxide 27 BUN 9 Creatinine 0.91 Glucose 101 H Calcium 9.6
--- NOTE | 2023-10-05 11:40 | Discharge Summary ---
Date of Service October 05, 2023 Admission HPI Per Admitting Provider History obtained from patient and records. Medical history significant for chronic diastolic heart failure (EF 55 to 60% TTE 2020), CAD status post angioplasty/CVA/PVD, PAF/hypercoagulable state (hx lupus anticoagulant disorder/left renal and splenic infarctions) on Coumadin, hypertension, hyperlipidemia, COPD, prediabetes, alcohol abuse as per records, past tobacco abuse. Last confinement 2020 for chest pain. Outpatient stress test showed bruce-infarct ischemia. Medical management recommended. Patient experienced achy substernal pain across his chest last night different from other episodes in the past. No radiation to the neck. Some shortness of breath. No unusual cough symptoms. Some relief with night nitroglycerin taken at home and later administered by EMS. Patient compliant with home medications. Denies unusual stress. 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 Admission Exam Per Admitting Provider GENERAL: Comfortable, pleasant, no respiratory distress SKIN: Normal color, warm HEENT: [place] palpebral conjunctivae, no ptosis, moist buccal mucosa NECK : Supple, no tenderness CHEST : Decreased breath sounds, no tenderness HEART : Bradycardic, systolic murmur ABDOMEN: Some distention, nontender EXTREMITIES : No LE swelling/tenderness, no other conspicuous deformities noted NEUROLOGIC : Coherent, no facial asymmetry, no other gross focality Principal Diagnosis Chronic angina pectoris Diabetes mellitus--new diagnosis Discharge Data Allergies Allergy/AdvReac Type Severity Reaction Status Date / Time No Known Allergies Allergy Verified 10/04/23 00:37 Consultations 10/04/23 03:44 ED Decision to Admit Stat 10/04/23 05:54 Consult Cardiology Routine Procedures Performed Laboratory Results WBC 2.99 K/ul (4.8-10.8) L 10/05/23 06:42 RBC 4.97 M/uL (4.70-6.10) 10/05/23 06:42 Hgb 15.5 g/dl (14.0-18.0) 10/05/23 06:42 Hct 44.1 % (42.0-52.0) 10/05/23 06:42 MCV 88.7 fL (80.0-100.0) 10/05/23 06:42 MCH 31.2 pg (25.0-34.0) 10/05/23 06:42 MCHC 35.1 g/dL (32.0-36.0) 10/05/23 06:42 RDW Std Deviation 42.7 fL (36.4-46.3) 10/05/23 06:42 RDW Coeff of Sena 13.1 % (11.5-14.5) 10/05/23 06:42 Plt Count 138 K/uL (130-400) 10/05/23 06:42 MPV 10.7 fL (9.4-12.4) 10/05/23 06:42 Immature Gran % (Auto) 0.0 % 10/05/23 06:42 Neut % (Auto) 64.2 % 10/05/23 06:42 Lymph % (Auto) 23.4 % 10/05/23 06:42 [place] % (Auto) 8.4 % 10/05/23 06:42 Eos % (Auto) 3.3 % 10/05/23 06:42 Baso % (Auto) 0.7 % 10/05/23 06:42 Neut # (Auto) 1.92 K/uL (1.40-6.50) 10/05/23 06:42 Lymph # (Auto) 0.70 K/uL (1.20-3.40) L 10/05/23 06:42 [place] # (Auto) 0.25 K/uL (0.11-0.59) 10/05/23 06:42 Eos # (Auto) 0.10 K/uL (0.00-0.50) 10/05/23 06:42 Baso # (Auto) 0.02 K/uL (0.00-0.20) 10/05/23 06:42 Immature Gran # (Auto) 0.00 K/uL (0.01-0.20) L 10/05/23 06:42 PT 28.2 Seconds (9.0-12.0) H 10/05/23 06:42 INR 2.7 (0.9-1.1) H 10/05/23 06:42 APTT 43 Seconds (21-31) H 10/04/23 00:00 PTT Ratio 1.5 10/04/23 00:00 Sodium 140 mmol/L (136-145) 10/05/23 06:42 Potassium 4.2 mmol/L (3.5-5.1) 10/05/23 06:42 Chloride 107 mmol/L (98-107) 10/05/23 06:42 Carbon Dioxide 27 mmol/L (21-32) 10/05/23 06:42 Anion Gap 6 (3-11) 10/05/23 06:42 BUN 9 mg/dl (6-23) 10/05/23 06:42 Creatinine 0.91 mg/dl (0.6-1.4) 10/05/23 06:42 Est Cr Clr Drug Dosing 59.3 ml/min 10/05/23 06:42 Est GFR ( Amer) 92.6 ml/min 10/05/23 06:42 Est GFR (Non-Af Amer) 79.9 ml/min 10/05/23 06:42 BUN/Creatinine Ratio 9.9 (10-20) L 10/05/23 06:42 Glucose 101 mg/dl (70-99(Fasting)) H 10/05/23 06:42 POC Glucose 106 mg/dl (70-99) H 10/05/23 11:05 Estimat Average Glucose 143 mg/dl 10/04/23 00:00 Hemoglobin A1c 6.6 % (4.5-5.6) H 10/04/23 00:00 Calcium 9.6 mg/dl (8.6-10.3) 10/05/23 06:42 Magnesium 1.9 mg/dl (1.7-2.4) 10/04/23 00:00 Total Bilirubin 0.7 mg/dl (0.2-1.0) 10/04/23 00:00 AST 28 U/L (13-39) 10/04/23 00:00 ALT 20 U/L (7-52) 10/04/23 00:00 Alkaline Phosphatase 63 U/L (34-104) 10/04/23 00:00 Troponin I High Sens 9.3 pg/ml (0-20) 10/04/23 06:31 Total Protein 6.8 gm/dl (6.0-8.3) 10/04/23 00:00 Albumin 4.4 gm/dl (3.4-5.0) 10/04/23 00:00 Globulin 2.4 gm/dl (2.5-4.0) L 10/04/23 00:00 Albumin/Globulin Ratio 1.8 (0.9-2) 10/04/23 00:00 Triglycerides 124 mg/dl (0-150) 10/04/23 06:31 Cholesterol 143 mg/dl (0-200) 10/04/23 06:31 LDL Cholesterol, Calc 57 mg/dl 10/04/23 06:31 VLDL Cholesterol, Calc 25 mg/dl (0-30) 10/04/23 06:31 HDL Cholesterol 61 mg/dl 10/04/23 06:31 Cholesterol/HDL Ratio 2.3 (0-5) 10/04/23 06:31 Lipase 39 U/L (11-82) 10/04/23 00:00 Ethyl Alcohol mg/dL < 10.0 mg/dl (<10.0) 10/04/23 06:31 Impressions Chest X-Ray 10/04/23 00:29 XR chest 1V portable CLINICAL HISTORY: Chest pain, nonspecific COMPARISON STUDY: Chest CT December 25, 2015. Chest radiograph June 06, 2021. FINDINGS: Lung volumes are normal. There is no consolidation to suggest pneumonia. Linear left basilar densities represent atelectasis or scarring. There is no pneumothorax or pleural effusion. Mild cardiomegaly. Mediastinal contours are normal. There is no evidence for pulmonary edema. IMPRESSION: No acute cardiopulmonary findings. ACT 112: Negative or not required by law. Electronically signed by: Trip Mckeon M.D. 10/04/2023 6:58 AM Hospital Course (1) Chest pain: Chest pain Chronic angina pectoris PACs/PVCs likely contributing to chest pain as well CAD, PVD S/P angioplasty --ECHO: Sinus bradycardia. Left ventricle is normal in size. Mild concentric LVH. Mild hypokinesis inferior, posterior base otherwise normal wall motion. EF 50 to 55%. Grade 1 diastolic dysfunction. Aortic valve sclerosis mild, without significant aortic valvular stenosis. --Wall motion abnormality also noted on prior ECHO --Negative Troponin X2 --Lipid panel normal Continue aspirin, isosorbide, metoprolol, rosuvastatin Added Ranexa Appreciate cardiology input Nitroglycerin discontinued Could not increase dose of metoprolol due to baseline bradycardia Patient is at increased risk for coronary intervention given diffuse vascular disease including aorta Continue pantoprazole Needs follow-up with cardiology on discharge Plan to be discharged home today DM II: New Diagnosis HbA1C:6.6 H/O Prediabetes On insulin sliding scale rn diabetes educator consulted Monitor BGs Plan to discharge home on metformin. Advised to follow-up with PCP for further adjustment of medications as needed Chronic diastolic heart failure No signs of volume overload currently Continue home medications Monitor volume status Paroxysmal atrial fibrillation Hypercoagulable state (H/O lupus anticoagulant disorder/left renal and splenic infarctions) Continue metoprolol Continue Coumadin for anticoagulation INR 2.7 today Hyperlipidemia on statin COPD No signs of exacerbation Prediabetes HbA1C:5.6 in 2021 Alcohol abuse as per records: Monitor for withdrawal. Continue thiamine, folic acid Past tobacco abuse DVT Px: Coumadin Code Status Full code Disposition Home Total Time Total Time Spent Total Time Spent (In Minutes): 59 minutes Discharge Plan Discharge Items Patient Disposition: Home - Self-Care Reason For Visit: CHEST PAIN Discharge Diagnosis: Chronic angina pectoris Diabetes mellitus II --new diagnosis Activity: Per Instructions section Exercise/Sports: Wait until after follow-up appointment Non-emergency contact: Primary Care Provider and Financial Operations Analyst Call non-emergency contact if: you have any medication questions, your symptoms worsen, your pain is concerning for you and you have a fever Follow-up/Referrals: Mario Mosquera MD [Primary Care Provider] - (Date & Time 10/09/2023 11:00 AM Provider Nyla Farnsworth MD Department General Internal Medicine [facility] ) Noel Knapp [Physician Director Nurses' Registry] - (Date & Time 11/11/2023 3:00 PM Provider Noel Knapp PA-C Department Cardiology, [facility] ) Diet: Carb Consistent or DM2 and Heart Healthy Addtl Attending Provider Instructions: Follow-up with your primary care physician Dr. Mosquera ON 10/09/2023 11:00 AM Follow-up with cardiology Noel Knapp PA-C ON 11/11/2023 3:00 PM --- Discuss with your primary care physician regarding further adjustment of medications for diabetes mellitus as advised. Seek immediate medical attention if your symptoms reoccur or worsen Please take all medications as instructed on discharge list below. Please call if you have any questions or problems. You can reach a [facility] hospitalist on duty at [facility] 24 hours a day by calling [phone] [facility] Provider Instructions: Home Care: * Take your medications exactly as directed. Don't skip doses. * Remember that recovery after a heart attack takes time. Plan to rest for at lease 4-8 weeks while you recover. Then return to normal activity when your doctor says it's okay. * Ask your doctor about joining a heart rehabilitation program. * Tell your doctor if you are feeling depressed. Feelings of sadness are common after a heart attack, but it is important that you speak to someone if you are feeling overwhelmed by these feelings. * If you are having chest pain, call 911 for an ambulance. Do NOT drive yourself to the hospital. * Ask your family members to learn CPR. * Learn to take your own blood pressure and pulse. Keep a record of your results. Ask your doctor when you should seek emergency medical attention. He or she will tell you which blood pressure reading is dangerous. Lifestyle Changes: * Maintain a healthy weight. Get help to lose any extra pounds. * Cut back on salt. * Limit canned, dried, packaged, and fast foods. * Don't add salt to your food. * Season foods with herbs instead of salt when you cook. * Break the smoking habit. Enroll in a stop-smoking program to improve your chances of success. * Limit fatty foods. * Ask your doctor about having your lipid levels checked regularly. * Build up your activity according to your doctor's recommendation. * Ask your doctor when it's okay to resume sexual activity. * Tell your doctor about any erectile dysfunction (ED) medication you are taking. Some ED medications are not safe if you take certain heart medications. * Try to manage stress. Follow Up: It is important for you to keep your follow up appointments with your medical provider. Pending Studies at Discharge: No Stand-Alone Forms: My [facility], Smoking Cessation Medications and DC Order Prescriptions: New metformin 500 mg Tablet Extended Release 24 Hr 500 mg PO QDD Qty: 30 1RF ranolazine 500 mg Tablet Extended Release 12 Hr 500 mg PO DAILY Qty: 30 1RF Continued ezetimibe 10 mg tablet 10 mg PO DAILY rosuvastatin 40 mg tablet 40 mg PO DAILY aspirin 81 mg tablet,delayed release (DR/EC) 81 mg PO QAM isosorbide mononitrate 120 mg tablet extended release 24 hr 120 mg PO QAM esomeprazole magnesium 40 mg capsule,delayed release(DR/EC) 40 mg PO QAM nitroglycerin [Nitrostat] 0.4 mg tablet, sublingual 0.4 mg Sublingual .COMPLEX Patient Comments: 0.4 mg Sublingual VERY 5 MINUTES FOR UP TO 3 DOSES PRN FOR CHEST PAIN. CALL 911 IF PAIN PERSISTS; Rx Instructions: 0.4 mg Sublingual VERY 5 MINUTES FOR UP TO 3 DOSES PRN FOR CHEST PAIN. CALL 911 IF PAIN PERSISTS; vitamin B complex tablet 1 tab PO QAM cyanocobalamin (vitamin B-12) 5,000 mcg Tablet, Sublingual 5,000 mcg SUBLINGUAL DAILY lisinopril 20 mg tablet 20 mg PO QAM metoprolol succinate 50 mg tablet extended release 24 hr 75 mg PO DAILY amlodipine 5 mg tablet 5 mg PO DAILY One-A-Day Men's 50 Plus 400-370 mcg Tablet 1 tab PO DAILY warfarin 5 mg tablet 0 mg PO UD Rx Instructions: take 5 mg (1 tablet) & SAT TAKE 2.5 MG (1/2 TABLET) ON ALL OTHER DAYS warfarin 1 mg tablet 1 mg PO UD Rx Instructions: TAKE 1 TABLET BY MOUTH ON sat,sat,,saturday take 1/2 tablet on saturdays Discharge Orders: Discharge Order (Routine); Ordered 10/05/23 Ordered By: Eber Childs Admission Data Admit Date/Time: 10/04/23 05:15 Attending Provider: Eber Childs Admit Provider: Jay Jay Diehl Primary Care Provider: Mario Mosquera Other Providers: Jay Jay Diehl; Lea Chatman; Willem Cedeno; Timo Brown; Goyo Temple; Virgilio Wen; Noel Knapp; Taylor Andrew; Jailene Lopez; Lea Kwong; James Dennis; Adelfo Cooper; Radha Alicia; Karly Atkinson; Sejal Harper; Ck Ma
[2023-10-05] MEDS ORDERED: WARFARIN SOD 5 MG TAB PO SCH (16:00)
[2023-10-05] MEDS ORDERED: metFORMIN HCL ER 500 MG TABCR PO SCH (16:30)
== END 2023-10-05 14:29 | disposition home or self-care (01) ==
LOC: ED 23:50 → EDINP 23:50 → 2E 10-04 05:54

== ENCOUNTER 2023-11-11 21:50 | Inpatient (IN) ==
[2023-11-11 22:28] LABS: Eosinophils # (auto) 0.01 K/uL (0.00-0.50); Eosinophils % (auto) 0.2 %; Hematocrit (blood only) 44.9 % (42.0-52.0); Immature Granulocytes # (auto) 0.02 K/uL (0.01-0.20); Immature Granulocytes % (auto) 0.4 %; Lymphocytes # (auto) 0.43 K/uL (1.20-3.40); Mean Corpuscular Hemoglobin 31.4 pg (25.0-34.0); Mean Corpuscular Hgb Conc 35.6 g/dL (32.0-36.0); Monocytes # (auto) 0.09 K/uL (0.11-0.59); Monocytes % (auto) 1.9 %; Neutrophils # (auto) 4.24 K/uL (1.40-6.50); Neutrophils % (auto) 88.5 %; Platelet Count 156 K/uL (130-400); RDW Coefficient of Variation 13.2 % (11.5-14.5); RDW Standard Deviation 43.2 fL (36.4-46.3); White Blood Count 4.79 K/ul (4.8-10.8)
[2023-11-11 22:36] LABS: Albumin Globulin Ratio 1.8 (0.9-2); Albumin Level 5.1 gm/dl (3.4-5.0); BUN Creatinine Ratio 11.7 (10-20); Bilirubin,Total 2.1 mg/dl (0.2-1.0); Calcium 10.6 mg/dl (8.6-10.3); Creatinine Clr Calc Pharmacy 45.2 ml/min; Est GFR (African American) 66.3 ml/min; Est GFR (Non-African American) 57.2 ml/min; Globulin 2.9 gm/dl (2.5-4.0); Potassium 3.8 mmol/L (3.5-5.1)
[2023-11-11 22:42] LABS: Troponin I High Sensitivity 7.6 pg/ml (0-20)
--- NOTE | 2023-11-11 22:49 | Emergency Department Note ---
Impression & Plan Acute cholecystitis, Gall stones, Vomiting, Abdominal pain, epigastric, Abnormal LFTs ED Provider Note NAME: JOE BLACK AGE: 78 SEX: M : 1945 ARRIVES VIA: Walk-In INFORMANT: Patient, ED PROVIDER(S): Ryan Fernandez DO CHIEF COMPLAINT: Epigastric pain HPI: The patient is a 78-year-old male who presented to the emergency department for an evaluation of epigastric pain. The patient was in our facility recently for similar complaints. 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 His discomfort was felt to be GI in nature. He recently had Pepcid added to his medication regimen. He has a history of a hiatal hernia. The patient also has a history of diabetes. The patient had another episode of discomfort today. He presented to the emergency department for further evaluation. The patient did take medication including nitroglycerin and symptoms are significantly improved at this time. The patient denies having any fever. He denies having any GI bleeding. The patient denies having any chest pain or abdominal pain this time. He denies having any leg swelling. ROS: See above HPI for pertinent positives & negatives. A total of 10 systems reviewed and were otherwise negative. PAST MEDICAL HISTORY: See Below PAST SURGICAL HISTORY: See Below FAMILY HISTORY: See Below SOCIAL HISTORY: See Below HOME MEDICATIONS: See Below ALLERGIES: See Below VITALS: See Below PHYSICAL EXAMINATION: GENERAL: Patient is awake alert in no acute distress patient is resting comfortably and showing no signs of anxiety EYES: The conjunctivae are clear. The pupils are round and reactive. EARS, NOSE, MOUTH AND THROAT: The nose is without any evidence of any deformity. NECK: The neck is nontender and supple. RESPIRATORY: Normal respiratory effort is noted there is no evidence of wheezing rhonchi or rales CARDIOVASCULAR: Regular rate and rhythm noted there no murmurs rubs or gallops normal S1 normal S2. GASTROINTESTINAL: The abdomen is soft. Abdomen is nontender. MUSCULOSKELETAL/EXTREMITIES: There is no evidence of gross deformity full range of motion is noted in the hips and shoulders. SKIN: There is no obvious evidence of any rash. There are no petechiae, pallor or cyanosis noted. NEUROLOGIC: Patient is awake alert and oriented x3 MEDICAL DECISION MAKING: The patient is a 78-year-old male who presented to the emergency department with epigastric pain. The patient was recently in our facility for similar complaints. At that time he was admitted to our facility for cardiac workup. Cardiac workup did not show any signs of ischemia. The patient did have a follow-up appointment with his supervisor [employer] stone fabricating today. The supervisor concrete stone fabricating group felt that the patient's discomfort was likely GI in nature. They were going to schedule him for an upper GI as well as possible further workup of his abdomen. The patient was started on Pepcid. He started having recurrence of symptoms this evening and return to the emergency department. I discussed the patient's laboratory and radiographic studies with him. He did have epigastric pain on palpation but after having an episode of emesis he was feeling much better. I discussed the patient's findings with him. He did have an elevation in his LFTs this evening. This led to an ultrasound the gallbladder which does show gallstones as well as thickening of the gallbladder wall. I do feel this is significant and is likely related to cholecystitis. I discussed his condition with the on-call general surgeon. The patient was treated with IV antibiotics. I will discuss this [facility] as well Triage Nursing notes reviewed. Prior medical records reviewed Vital Signs: reviewed and remarkable for elevated blood pressure. Differential diagnosis: Etiologies such as appendicitis, diverticulitis, obstruction, inflammatory bowel disease, renal colic, PUD, biliary pathology, pancreatitis, mesenteric ischemia, aortic pathology, infections, genitourinary, UTI, perforated viscus, as well as others were entertained. ER treatment provided: See below Diagnostics interpreted by me: ECG: EKG was obtained in the emergency department. My interpretation is normal sinus rhythm at 81 bpm. There is no ectopy. Nonspecific ST segment abnormalities are noted in the inferior lateral leads. Poor R wave progression was noted. This was compared to a tracing from October 05, 2023. No changes were noted Cardiac Monitoring: An order was placed for continuous cardiac monitoring. The monitor shows a rate of 82 bpm with sinus rhythm Laboratory studies: As stated above and show below. Imaging studies: See below. Radiographic imaging was reviewed by myself Consultation(s): I discussed this case with Dr. Wan who is on-call for general surgery. [facility], [facility] Wang was notified about the patient. 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" Surgical History Carpal tunnel syndrome History of total right hip replacement Family History Other Diabetes Heart disease Social History Smoking Status: Never smoker Tobacco Type: Cigarettes packs per day: 0.5; Do You Dip or Chew Tobacco: No; Hx Alcohol Use: Yes Alcohol type: beer Alcohol Intake Frequency: 4 or More x per/Week Hx Substance Use: No Preferred Language: Croatian Communication Ability: Effective Visual Impairment: No Limitations Hearing Ability: Normal Medical Office Technician Required: No Beliefs That Will Affect Care: None marital status: Current Living Situation: Spouse current occupational status: retired Feels Safe at Home: Yes Assistive Devices: None Allergies Allergies Allergy/AdvReac Type Severity Reaction Status Date / Time No Known Allergies Allergy Verified 11/11/23 23:56 Home Meds Home Medications Medication Instructions Recorded Confirmed aspirin 81 mg tablet,delayed 81 mg PO QAM 05/04/19 11/12/23 release esomeprazole magnesium 40 mg 40 mg PO [facility] 05/04/19 11/12/23 capsule,delayed release isosorbide mononitrate 120 mg 120 mg PO QAM 05/04/19 11/12/23 tablet,extended release 24 hr nitroglycerin 0.4 mg sublingual 0.4 mg sublingual DIRECTED PRN 05/04/19 11/12/23 tablet (Nitrostat) Chest Pain vitamin B complex 1 tab PO QAM 05/04/19 11/12/23 cyanocobalamin (vitamin B-12) 5,000 mcg sublingual DAILY 02/22/20 11/12/23 5,000 mcg sublingual tablet lisinopril 20 mg tablet 20 mg PO QAM 05/06/20 11/12/23 ezetimibe 10 mg tablet 10 mg PO DAILY 02/10/21 11/12/23 rosuvastatin 40 mg tablet 40 mg PO DAILY 02/10/21 11/12/23 metoprolol succinate 50 mg 75 mg PO DAILY 05/21/21 11/12/23 tablet,extended release 24 hr amlodipine 5 mg tablet 5 mg PO DAILY 10/04/23 11/12/23 multivitamin with minerals-folic 1 tab PO DAILY 10/04/23 11/12/23 acid 400 mcg-lycopene 370 mcg tablet (One-A-Day Men's 50 Plus) warfarin 5 mg tablet See Rx Instructions .Route .COMPLEX 10/04/23 11/12/23 acetaminophen 650 mg 650 mg PO Q8H PRN Pain 11/11/23 11/12/23 tablet,extended release famotidine 20 mg tablet 20 mg PO BID 11/11/23 11/12/23 Previous Rx's Medication Instructions Recorded metformin 500 mg tablet,extended 500 mg PO QDD #30 tabs 10/05/23 release 24 hr ranolazine 500 mg tablet,extended 500 mg PO DAILY #30 tabs 10/05/23 release,12 hr Results & Data (ED) Vital Signs Vital Signs - 24 hr 11/11/23 21:52 11/11/23 22:53 11/11/23 22:53 Temperature 36.8 C Temperature Source Temporal Artery Scan Pulse Rate 87 Pulse Rate [Apical] 84 Pulse Rhythm Pulse Rhythm [Apical] Regular Pulse Strength [Apical] Normal Respiratory Rate 20 15 Respiratory Effort / Characteristics Non-Labored Spontaneous Respiratory Depth Normal Normal Respiratory Pattern Regular Blood Pressure 185/97 H Blood Pressure [Right Arm] 142/106 H Blood Pressure Mean 126 Blood Pressure Mean [Right Arm] 118 Blood Pressure Position Sitting Blood Pressure Position [Right Arm] Lying Pulse Oximetry 98 95 95 Oxygen Delivery Method Room Air Room Air Room Air Oxygen Flow Rate 0 Sepsis Recent Fever Within 48 Hours No Sepsis New/Unexplained Change in Mental Status No Sepsis Action Taken by Nursing No Action Required 11/11/23 22:53 11/11/23 22:56 Temperature Temperature Source Pulse Rate 84 82 Pulse Rate [Apical] Pulse Rhythm Regular Pulse Rhythm [Apical] Pulse Strength [Apical] Respiratory Rate 22 Respiratory Effort / Characteristics Respiratory Depth Respiratory Pattern Blood Pressure Blood Pressure [Right Arm] Blood Pressure Mean Blood Pressure Mean [Right Arm] Blood Pressure Position Blood Pressure Position [Right Arm] Pulse Oximetry 95 Oxygen Delivery Method Room Air Oxygen Flow Rate Sepsis Recent Fever Within 48 Hours Sepsis New/Unexplained Change in Mental Status Sepsis Action Taken by Jail Medications Current Medication List: was personally reviewed by me Laboratory Data Attestation: I reviewed the patient's lab results. 11/11/23 22:02 11/11/23 22:02 Lab Results 11/11/23 Range/Units 22:02 WBC 4.79 L (4.8-10.8) K/ul RBC 5.10 (4.70-6.10) M/uL Hgb 16.0 (14.0-18.0) g/dl Hct 44.9 (42.0-52.0) % MCV 88.0 (80.0-100.0) fL MCH 31.4 (25.0-34.0) pg MCHC 35.6 (32.0-36.0) g/dL RDW Std Deviation 43.2 (36.4-46.3) fL RDW Coeff of [place] 13.2 (11.5-14.5) % Plt Count 156 (130-400) K/uL MPV 11.0 (9.4-12.4) fL Immature Gran % (Auto) 0.4 % Neut % (Auto) 88.5 % Lymph % (Auto) 9.0 % [place] % (Auto) 1.9 % Eos % (Auto) 0.2 % Baso % (Auto) 0.0 % Neut # (Auto) 4.24 (1.40-6.50) K/uL Lymph # (Auto) 0.43 L (1.20-3.40) K/uL [place] # (Auto) 0.09 L (0.11-0.59) K/uL Eos # (Auto) 0.01 (0.00-0.50) K/uL Baso # (Auto) 0.00 (0.00-0.20) K/uL Immature Gran # (Auto) 0.02 (0.01-0.20) K/uL PT 19.8 H (9.0-12.0) Seconds INR 1.9 H (0.9-1.1) APTT 38 H (21-31) Seconds PTT Ratio 1.3 Sodium 139 (136-145) mmol/L Potassium 3.8 (3.5-5.1) mmol/L Chloride 102 (98-107) mmol/L Carbon Dioxide 23 (21-32) mmol/L Anion Gap 14 H (3-11) BUN 14 (6-23) mg/dl Creatinine 1.20 (0.6-1.4) mg/dl Est Cr Clr Drug Dosing 45.2 ml/min Est GFR ( Amer) 66.3 ml/min Est GFR (Non-Af Amer) 57.2 ml/min BUN/Creatinine Ratio 11.7 (10-20) Glucose 240 H (70-99(Fasting)) mg/dl Calcium 10.6 H (8.6-10.3) mg/dl Total Bilirubin 2.1 H (0.2-1.0) mg/dl AST 486 H (13-39) U/L ALT 315 H (7-52) U/L Alkaline Phosphatase 98 (34-104) U/L Troponin I High Sens 7.6 (0-20) pg/ml Total Protein 8.0 (6.0-8.3) gm/dl Albumin 5.1 H (3.4-5.0) gm/dl Globulin 2.9 (2.5-4.0) gm/dl Albumin/Globulin Ratio 1.8 (0.9-2) Administered Medications Piperacillin Sod/Tazobactam Sod (Zosyn) 4.5 gm in 100 mls @ 200 mls/hr IV NOW ONE Stop: 11/12/23 00:27 Last Admin: 11/12/23 00:04 Dose: 200 mls/hr Documented By: CACHORRO Imaging Data Attestation: I personally reviewed and interpreted this imaging study as follows: My Impression: 1 view chest x-ray was obtained in the emergency department. My interpretation is no free air or definite infiltrate. There is atelectasis at the left base. This was compared to a chest x-ray from October 04, 2023. No changes were noted. Radiologist's Impression: Gallbladder Ultrasound 11/11/23 22:53 Exam(s): US GALLBLADDER EXAM: US Abdomen Limited, Gallbladder CLINICAL HISTORY: Upper Abdominal pain. TECHNIQUE: Real-time ultrasound of the right upper quadrant with image documentation. COMPARISON: No relevant prior studies available. FINDINGS: Liver: The liver measures 17.1 cm. Fatty infiltration of the liver. Gallbladder: Cholelithiasis. Thickening of the bladder wall could relate to acute cholecystitis or chronic liver disease. Common bile duct: The common bile duct is normal measuring 0.3 cm. No stones. No dilation. Pancreas: The pancreatic head and body are within normal limits. The tail is not visualized due to overlying bowel gas. Right kidney: The right kidney measures 10.7 cm. There are simple appearing renal cysts. 5.5 cm mass is present. IMPRESSION: 1. Cholelithiasis. Thickening of the bladder wall could relate to acute cholecystitis or chronic liver disease. 2. Fatty infiltration of the liver. 3. Redemonstrated by 0.5 cm mass of the right kidney. Electronically signed by: Viviane Damico MD 11/11/23 23:57 PM Discharge Plan Visit Data Chief Complaint: Chest Pain Stated Complaint: SEVERE CHEST PAIN ED Provider: Ryan Fernandez Discharge Problem: Acute cholecystitis, Gall stones, Vomiting, Abdominal pain, epigastric, Abnormal LFTs Patient Disposition: Being Evaluated by Hospitalist Forms Stand Alone Forms: My [facility] Prescriptions Prescriptions: No Action ezetimibe 10 mg tablet 10 mg PO DAILY rosuvastatin 40 mg tablet 40 mg PO DAILY aspirin 81 mg tablet,delayed release (DR/EC) 81 mg PO QAM isosorbide mononitrate 120 mg tablet extended release 24 hr 120 mg PO QAM esomeprazole magnesium 40 mg capsule,delayed release(DR/EC) 40 mg PO QAM nitroglycerin [Nitrostat] 0.4 mg tablet, sublingual 0.4 mg Sublingual DIRECTED PRN (Reason: Chest Pain) Patient Comments: 0.4 mg Sublingual VERY 5 MINUTES FOR UP TO 3 DOSES PRN FOR CHEST PAIN. CALL 911 IF PAIN PERSISTS; Rx Instructions: 0.4 mg Sublingual VERY 5 MINUTES FOR UP TO 3 DOSES PRN FOR CHEST PAIN. CALL 911 IF PAIN PERSISTS; vitamin B complex tablet 1 tab PO QAM cyanocobalamin (vitamin B-12) 5,000 mcg Tablet, Sublingual 5,000 mcg SUBLINGUAL DAILY lisinopril 20 mg tablet 20 mg PO QAM metoprolol succinate 50 mg tablet extended release 24 hr 75 mg PO DAILY amlodipine 5 mg tablet 5 mg PO DAILY One-A-Day Men's 50 Plus 400-370 mcg Tablet 1 tab PO DAILY warfarin 5 mg tablet See Rx Instructions .ROUTE .COMPLEX Rx Instructions: TAKES 5 MG ON TUES & SAT., THEN 2.5 MG SUN, MON, WED, TH, & FRI. metformin 500 mg Tablet Extended Release 24 Hr 500 mg PO QDD Qty: 30 1RF ranolazine 500 mg Tablet Extended Release 12 Hr 500 mg PO DAILY Qty: 30 1RF acetaminophen [Tylenol Extended Release] 650 mg Tablet Extended Release 650 mg PO Q8H PRN (Reason: Pain) famotidine 20 mg tablet 20 mg PO BID Referrals Referrals: Mario Mosquera MD [Primary Care Provider] - Discharge Problem: Vomiting Qualifiers: Vomiting type: unspecified Nausea presence: with nausea Qualified Code(s): R 11.2 - Nausea with vomiting, unspecified
[2023-11-11 22:50] LABS: INR 1.9 (0.9-1.1); Partial Thromboplastin Ratio 1.3; Partial Thromboplastin Time 38 Seconds (21-31); Prothrombin Time 19.8 Seconds (9.0-12.0)
--- NOTE | 2023-11-11 23:58 | Ultrasound Report ---
Exam(s): US GALLBLADDER EXAM: US Abdomen Limited, Gallbladder CLINICAL HISTORY: Upper Abdominal pain. TECHNIQUE: Real-time ultrasound of the right upper quadrant with image documentation. COMPARISON: No relevant prior studies available. FINDINGS: Liver: The liver measures 17.1 cm. Fatty infiltration of the liver. Gallbladder: Cholelithiasis. Thickening of the bladder wall could relate to acute cholecystitis or chronic liver disease. Common bile duct: The common bile duct is normal measuring 0.3 cm. No stones. No dilation. Pancreas: The pancreatic head and body are within normal limits. The tail is not visualized due to overlying bowel gas. Right kidney: The right kidney measures 10.7 cm. There are simple appearing renal cysts. 5.5 cm mass is present. IMPRESSION: 1. Cholelithiasis. Thickening of the bladder wall could relate to acute cholecystitis or chronic liver disease. 2. Fatty infiltration of the liver. 3. Redemonstrated by 0.5 cm mass of the right kidney. Electronically signed by: Viviane Damico MD 11/11/23 23:57 PM
[2023-11-12] MEDS: PIPERACILLIN/TAZOBACTAM 4.5 GM/100 ML BAG IV ONE (00:04)
--- NOTE | 2023-11-12 00:26 | Surgery Consultation ---
Date of Consultation November 12, 2023 Assessment & Plan (1) Abdominal pain, epigastric: Assessment: Patient is 78 years old gentleman who with significant past Medical history for chronic diastolic heart failure (EF 55 to 60% TTE 2020), HTN, CAD status post angioplasty/CVA/PVD, PAF/hypercoagulable state (hx lupus anticoagulant disorder/left renal and splenic infarctions) on Coumadin, hyperlipidemia, COPD, prediabetes, alcohol abuse , past tobacco abuse. patient was admitted to [facility] on September/2023 for chest pain. today patient presented to ED with 5-hour history of epigastric pain. sharp pain, the pain is not radiate to back. now pt said the pain is gone. pt denies nausea, or vomiting. no chest pain, no fever or chills, no diarrhea. patient had U/S study at ER- diagnosis- IMPRESSION: 1. Cholelithiasis. Thickening of the bladder wall could relate to acute cholecystitis or chronic liver disease. plan: - Hospitalist will admit pt to hospital - No emergency surgical indication now - NPO, po meds and ice chip Okay. iv fluid, - consult GI - may need MRCP to R/O CBD stone - repeat labs in the morning - will F/U patient and his family member agreed iwth the plan. I answered all questions. D/W ER attending. (2) Gall stones: see above History of Present Illness Reason for Consultation: epigastric pain Requesting Physician: Ryan Fernandez DO History of Present Illness CC: epigastric pain HPI: Patient is 78 years old gentleman who with significant past Medical history for chronic diastolic heart failure (EF 55 to 60% TTE 2020), HTN, CAD status post angioplasty/CVA/PVD, PAF/hypercoagulable state (hx lupus anticoagulant disorder/left renal and splenic infarctions) on Coumadin, hyperlipidemia, COPD, prediabetes, alcohol abuse , past tobacco abuse. patient was admitted to [facility] on September/2023 for chest pain. today patient presented to ED with 5-hour history of epigastric pain. sharp pain, the pain is not radiate to back. now pt said the pain is gone. pt denies nausea, or vomiting. no chest pain, no fever or chills, no diarrhea. patient had U/S study at ER- diagnosis- IMPRESSION: 1. Cholelithiasis. Thickening of the bladder wall could relate to acute cholecystitis or chronic liver disease. 2. Fatty infiltration of the liver. 3. Redemonstrated by 0.5 cm mass of the right kidney. Allergies Allergy/AdvReac Type Severity Reaction Status Date / Time No Known Allergies Allergy Verified 11/11/23 23:56 Home Medications Medication Instructions Recorded Confirmed Type aspirin 81 mg tablet,delayed 81 mg PO QAM 05/04/19 11/12/23 History release esomeprazole magnesium 40 mg 40 mg PO QAM 05/04/19 11/12/23 History capsule,delayed release isosorbide mononitrate 120 mg 120 mg PO QAM 05/04/19 11/12/23 History tablet,extended release 24 hr nitroglycerin 0.4 mg sublingual 0.4 mg sublingual DIRECTED PRN 05/04/19 11/12/23 History tablet (Nitrostat) Chest Pain vitamin B complex 1 tab PO QAM 05/04/19 11/12/23 History cyanocobalamin (vitamin B-12) 5,000 mcg sublingual DAILY 02/22/20 11/12/23 History 5,000 mcg sublingual tablet lisinopril 20 mg tablet 20 mg PO QAM 05/06/20 11/12/23 History ezetimibe 10 mg tablet 10 mg PO DAILY 02/10/21 11/12/23 History rosuvastatin 40 mg tablet 40 mg PO DAILY 02/10/21 11/12/23 History metoprolol succinate 50 mg 75 mg PO DAILY 05/21/21 11/12/23 History tablet,extended release 24 hr amlodipine 5 mg tablet 5 mg PO DAILY 10/04/23 11/12/23 History multivitamin with minerals-folic 1 tab PO DAILY 10/04/23 11/12/23 History acid 400 mcg-lycopene 370 mcg tablet (One-A-Day Men's 50 Plus) warfarin 5 mg tablet See Rx Instructions .Route .COMPLEX 10/04/23 11/12/23 History metformin 500 mg tablet,extended 500 mg PO QDD #30 tabs 10/05/23 11/12/23 Rx release 24 hr ranolazine 500 mg tablet,extended 500 mg PO DAILY #30 tabs 10/05/23 11/12/23 Rx release,12 hr acetaminophen 650 mg 650 mg PO Q8H PRN Pain 11/11/23 11/12/23 History tablet,extended release famotidine 20 mg tablet 20 mg PO BID 11/11/23 11/12/23 History Patient History Medical History (Updated 11/12/23 @ 00:09 by Ryan Fernandez DO) Aortic 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 Carpal tunnel syndrome of right wrist Diverticulosis of colon Hypospadias Vitamin deficiency Low bone mass Alcohol use Diastolic CHF HTN (hypertension) CAD (coronary artery disease) "2009 - NSTEMI 2011 - anterolateral STEMI, s/p POBA to LAD diagonal artery occlusion" Surgical History Carpal tunnel syndrome History of total right hip replacement Family History Other Diabetes Heart disease Social History Smoking Status: Never smoker Tobacco Type: Cigarettes packs per day: 0.5; Do You Dip or Chew Tobacco: No; Hx Alcohol Use: Yes Alcohol type: beer Alcohol Intake Frequency: 4 or More x per/Week Hx Substance Use: No Preferred Language: Danish Communication Ability: Effective Visual Impairment: No Limitations Hearing Ability: Normal Dentofacial Orthopedics Dentist Required: No Beliefs That Will Affect Care: None marital status: Current Living Situation: Spouse current occupational status: retired Feels Safe at Home: Yes Assistive Devices: None Review of Systems Constitutional: as per Subjective / HPI Eyes: as per Subjective / HPI Respiratory: COPD, past tobacco abuse Cardiovascular: Additional Comments: chronic diastolic heart failure (EF 55 to 60% TTE 2020), HTN, CAD status post angioplasty/CVA/PVD, PAF/hypercoagulable state (hx lupus anticoagulant disorder/left renal and splenic infarctions) on Coumadin, Gastrointestinal: hiatal hernia Genitourinary: + as per Subjective / HPI Neurologic: as per Subjective / HPI CVA Psychiatric: as per Subjective / HPI Endocrine: as per Subjective / HPI Hematologic / Lymphatic: as per Subjective / HPI on coumadin Physical Exam Constitutional: WD/WN, vitals as above no distress Eyes: PERRL, conjunctivae normal, anicteric sclerae Neck: trachea midline, no thyromegaly Respiratory: normal respiratory effort, lungs clear to auscultation Cardiovascular: RRR, no murmur, no edema Gastrointestinal (Abdomen): soft, no tenderness or distend on abdomen. BS + Neurologic: patellar DTR's 2+ bilat, sensation intact Psychiatric: A+Ox3, euthymic affect Results & Data Vital Signs (Past 12 Hours) Vital Signs Temp Pulse Pulse Resp BP BP Pulse Ox 11/11/23 22:56 82 11/11/23 22:53 84 22 95 11/11/23 22:53 84 15 142/106 H 95 11/11/23 22:53 95 11/11/23 21:52 36.8 C 87 20 185/97 H 98 O2 Del Method O2 Flow Rate 11/11/23 22:56 11/11/23 22:53 Room Air 11/11/23 22:53 Room Air 11/11/23 22:53 Room Air 0 11/11/23 21:52 Room Air Laboratory Results Lab Results 11/11/23 Range/Units 22:02 WBC 4.79 L (4.8-10.8) K/ul RBC 5.10 (4.70-6.10) M/uL Hgb 16.0 (14.0-18.0) g/dl Hct 44.9 (42.0-52.0) % MCV 88.0 (80.0-100.0) fL MCH 31.4 (25.0-34.0) pg MCHC 35.6 (32.0-36.0) g/dL RDW Std Deviation 43.2 (36.4-46.3) fL RDW Coeff of Sena 13.2 (11.5-14.5) % Plt Count 156 (130-400) K/uL MPV 11.0 (9.4-12.4) fL Immature Gran % (Auto) 0.4 % Neut % (Auto) 88.5 % Lymph % (Auto) 9.0 % [place] % (Auto) 1.9 % Eos % (Auto) 0.2 % Baso % (Auto) 0.0 % Neut # (Auto) 4.24 (1.40-6.50) K/uL Lymph # (Auto) 0.43 L (1.20-3.40) K/uL [place] # (Auto) 0.09 L (0.11-0.59) K/uL Eos # (Auto) 0.01 (0.00-0.50) K/uL Baso # (Auto) 0.00 (0.00-0.20) K/uL Immature Gran # (Auto) 0.02 (0.01-0.20) K/uL PT 19.8 H (9.0-12.0) Seconds INR 1.9 H (0.9-1.1) APTT 38 H (21-31) Seconds PTT Ratio 1.3 Sodium 139 (136-145) mmol/L Potassium 3.8 (3.5-5.1) mmol/L Chloride 102 (98-107) mmol/L Carbon Dioxide 23 (21-32) mmol/L Anion Gap 14 H (3-11) BUN 14 (6-23) mg/dl Creatinine 1.20 (0.6-1.4) mg/dl Est Cr Clr Drug Dosing 45.2 ml/min Est GFR ( Amer) 66.3 ml/min Est GFR (Non-Af Amer) 57.2 ml/min BUN/Creatinine Ratio 11.7 (10-20) Glucose 240 H (70-99(Fasting)) mg/dl Calcium 10.6 H (8.6-10.3) mg/dl Total Bilirubin 2.1 H (0.2-1.0) mg/dl AST 486 H (13-39) U/L ALT 315 H (7-52) U/L Alkaline Phosphatase 98 (34-104) U/L Troponin I High Sens 7.6 (0-20) pg/ml Total Protein 8.0 (6.0-8.3) gm/dl Albumin 5.1 H (3.4-5.0) gm/dl Globulin 2.9 (2.5-4.0) gm/dl Albumin/Globulin Ratio 1.8 (0.9-2) Lipase 41 (11-82) U/L Diagnostic Findings Exam(s): US GALLBLADDER EXAM: US Abdomen Limited, Gallbladder CLINICAL HISTORY: Upper Abdominal pain. TECHNIQUE: Real-time ultrasound of the right upper quadrant with image documentation. COMPARISON: No relevant prior studies available. FINDINGS: Liver: The liver measures 17.1 cm. Fatty infiltration of the liver. Gallbladder: Cholelithiasis. Thickening of the bladder wall could relate to acute cholecystitis or chronic liver disease. Common bile duct: The common bile duct is normal measuring 0.3 cm. No stones. No dilation. Pancreas: The pancreatic head and body are within normal limits. The tail is not visualized due to overlying bowel gas. Right kidney: The right kidney measures 10.7 cm. There are simple appearing renal cysts. 5.5 cm mass is present. IMPRESSION: 1. Cholelithiasis. Thickening of the bladder wall could relate to acute cholecystitis or chronic liver disease. 2. Fatty infiltration of the liver. 3. Redemonstrated by 0.5 cm mass of the right kidney. Electronically signed by: Viviane Damico MD 11/11/23 23:57 PM Dictated: 11/11/23 2357 Transcribed: 11/11/23 2358
--- NOTE | 2023-11-12 04:37 | History & Physical Report ---
Date of Service November 12, 2023 Assessment & Plan (1) Abdominal pain, epigastric: Plan: 78-year-old male with past medical history significant for parathyroid abnormal, mixed hyperlipidemia, obstructive sleep apnea, history of FL, paroxysmal atrial fibrillation, stenosis of right subclavian artery, hypertension, history of CAD, aortic arch anomaly, diastolic dysfunction, reflux esophagitis, chronic kidney stage III, osteoporosis, lupus anticoagulant disorder, splenic infarct, presents with epigastric pain started last night 7 PM associated with dry heaves. Currently pain is much improved. Denies chest pain. No shortness of breath. No cough. No fevers. No diarrhea or constipation. Micturating okay. No headache. No runny nose or sore throat. No cough. Current resting comfortably and hemodynamically stable. Patient was in the hospital in September 2023 with chest pain. At that time workup with echo, EKG and troponin were okay and Ranexa was added. And he followed with cardiology yesterday and recommended EGD and Pepcid was added. Abdominal pain epigastric Gallbladder ultrasound shows possible cholecystitis Total bilirubin 2.1, AST 46, ALT 315, alkaline phosphatase 98 Troponin 7.6 Seen by surgery and appreciate inputs Will order MRCP GI consult Follow repeat labs N.p.o., IV fluids, IV antiemetics as needed and IV Dilaudid as needed ER started Zosyn which we will be continued Close monitor. History of CAD On statin, metoprolol succinate, and Zetia and aspirin and Ranexa and Imdur Follow-up with cardiology Severe atherosclerotic proximal aortic arch and descending aorta. History of CVA On aspirin statin and Coumadin Lupus anticoagulant disorder On Coumadin which will be held for procedures. To restart as soon as possible History of obstructive sleep apnea Currently not using CPAP GERD Pepcid and Protonix Hyperlipidemia On statin Hypertension Lisinopril, Imdur, amlodipine Will monitor Parathyroid abnormality Mild elevated PTH Under observation by endocrinology Current diastolic dysfunction Echo done in September 2023 shows EF 50 to 55%. Mild hypokinesis inferior posterior base. Grade 1 distal dysfunction Monitor for volume overload Diabetes Hold metformin Sliding scale Will monitor ?Paroxysmal atrial fibrillation Metoprolol Holding Coumadin for procedures Monitor Right subclavian artery stenosis To check blood pressures in the left arm History of tobacco abuse Possible COPD Will monitor DVT prophylaxis SCDs for now To restart Coumadin when able to Disposition Medical floor Full code History of Present Illness Chief Complaint: Epigastric abdominal pain Primary Care Provider: Mario Mosquera MD 78-year-old male with past medical history significant for parathyroid abnormal, mixed hyperlipidemia, obstructive sleep apnea, history of FL, paroxysmal atrial fibrillation, stenosis of right subclavian artery, hypertension, history of CAD, aortic arch anomaly, diastolic dysfunction, reflux esophagitis, chronic kidney stage III, osteoporosis, lupus anticoagulant disorder, splenic infarct, presents with epigastric pain started last night 7 PM associated with dry heaves. Currently pain is much improved. Denies chest pain. No shortness of breath. No cough. No fevers. No diarrhea or constipation. Micturating okay. No headache. No runny nose or sore throat. No cough. Current resting comfortably and hemodynamically stable. Patient was in the hospital in September 2023 with chest pain. At that time workup with echo, EKG and troponin were okay and Ranexa was added. And he followed with cardiology yesterday and recommended EGD and Pepcid was added. Past medical history as mentioned above Past surgical history. Right carpal tunnel surgery. Bilateral cataract surgery. Colonoscopy. Right total hip replacement Social history. . Quit smoking in 2005. Smoked half pack a day for 55 years. Alcohol drinks about 2 drinks daily. No drug use. Family history. Father had diabetes. Heart disorder. Hypertension. Mother had heart disorder. Hypertension. Osteoporosis. Stroke. Paternal grandmother had diabetes. Son had mouth cancer Allergies Allergy/AdvReac Type Severity Reaction Status Date / Time No Known Allergies Allergy Verified 11/11/23 23:56 Home Medications Medication Instructions Recorded Confirmed Type aspirin 81 mg tablet,delayed 81 mg PO QAM 05/04/19 11/12/23 History release esomeprazole magnesium 40 mg 40 mg PO QAM 05/04/19 11/12/23 History capsule,delayed release isosorbide mononitrate 120 mg 120 mg PO QAM 05/04/19 11/12/23 History tablet,extended release 24 hr nitroglycerin 0.4 mg sublingual 0.4 mg sublingual DIRECTED PRN 05/04/19 11/12/23 History tablet (Nitrostat) Chest Pain vitamin B complex 1 tab PO QAM 05/04/19 11/12/23 History cyanocobalamin (vitamin B-12) 5,000 mcg sublingual DAILY 02/22/20 11/12/23 History 5,000 mcg sublingual tablet lisinopril 20 mg tablet 20 mg PO QAM 05/06/20 11/12/23 History ezetimibe 10 mg tablet 10 mg PO DAILY 02/10/21 11/12/23 History rosuvastatin 40 mg tablet 40 mg PO DAILY 02/10/21 11/12/23 History metoprolol succinate 50 mg 75 mg PO DAILY 05/21/21 11/12/23 History tablet,extended release 24 hr amlodipine 5 mg tablet 5 mg PO DAILY 10/04/23 11/12/23 History multivitamin with minerals-folic 1 tab PO DAILY 10/04/23 11/12/23 History acid 400 mcg-lycopene 370 mcg tablet (One-A-Day Men's 50 Plus) warfarin 5 mg tablet See Rx Instructions .Route .COMPLEX 10/04/23 11/12/23 History metformin 500 mg tablet,extended 500 mg PO QDD #30 tabs 10/05/23 11/12/23 Rx release 24 hr ranolazine 500 mg tablet,extended 500 mg PO DAILY #30 tabs 10/05/23 11/12/23 Rx release,12 hr acetaminophen 650 mg 650 mg PO Q8H PRN Pain 11/11/23 11/12/23 History tablet,extended release famotidine 20 mg tablet 20 mg PO BID 11/11/23 11/12/23 History Past Med/Surg History Medical History (Updated 11/12/23 @ 00:09 by Ryan Fernandez DO) Aortic 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 Carpal tunnel syndrome of right wrist Diverticulosis of colon Hypospadias Vitamin deficiency Low bone mass Alcohol use Diastolic CHF HTN (hypertension) CAD (coronary artery disease) "2009 - NSTEMI 2012 - anterolateral STEMI, s/p POBA to LAD diagonal artery occlusion" Surgical History Carpal tunnel syndrome History of total right hip replacement Family History Other Diabetes Heart disease Social History Smoking Status: Former smoker Tobacco Type: Cigarettes packs per day: 0.5; Do You Dip or Chew Tobacco: No; Hx Alcohol Use: Yes Alcohol type: beer Alcohol Intake Frequency: 4 or More x per/Week Hx Substance Use: No Preferred Language: [place]i Communication Ability: Effective Visual Impairment: No Limitations Hearing Ability: Normal Clinical Laboratory Technologist Required: No Beliefs That Will Affect Care: None marital status: Current Living Situation: Spouse current occupational status: retired Other Information That Helps Us Care for You: No Feels Safe at Home: Yes Safety Concerns: Feels Safe At This Time Assistive Devices: None Review of Systems Review of Systems: All systems reviewed & are unremarkable except as noted in HPI & below Physical Exam Physical Exam: General- Not in distress Head- atraumatic Eyes- PERRL. ENT- oropharynx clear Neck- supple, no JVD Lungs- clear to auscultation no wheezing or crackles. Heart- regular rhythm; no murmur, no gallop. Abdomen- normal bowel sounds, soft, nontender, no distension. Extremities- no pretibial edema, no erythema seen. Neuro- alert, oriented PERRL, no facial palsy; no dysarthria; moves extremities. Skin- warm & dry Results & Data Results & Data Vital Signs (Past 12 Hours) Vital Signs Temp Pulse Pulse Resp BP BP Pulse Ox 11/12/23 02:51 75 11/12/23 02:00 81 16 141/81 H 95 11/12/23 01:08 36.8 C 80 22 126/82 95 11/12/23 01:00 74 18 129/78 98 11/11/23 22:56 82 11/11/23 22:53 84 22 95 11/11/23 22:53 84 15 142/106 H 95 11/11/23 22:53 95 11/11/23 21:52 36.8 C 87 20 185/97 H 98 O2 Del Method O2 Flow Rate 11/12/23 02:51 11/12/23 02:00 Room Air 11/12/23 01:08 Room Air 11/12/23 01:00 Room Air 11/11/23 22:56 11/11/23 22:53 Room Air 11/11/23 22:53 Room Air 11/11/23 22:53 Room Air 0 11/11/23 21:52 Room Air Diagnostic Findings Laboratory Results WBC 4.79 K/ul (4.8-10.8) L 11/11/23 22:02 RBC 5.10 M/uL (4.70-6.10) 11/11/23 22: Hgb 16.0 g/dl (14.0-18.0) 11/11/23 22: Hct 44.9 % (42.0-52.0) 11/11/23 22: MCV 88.0 fL (80.0-100.0) 11/11/23 22: MCH 31.4 pg (25.0-34.0) 11/11/23 22: MCHC 35.6 g/dL (32.0-36.0) 11/11/23 22: RDW Std Deviation 43.2 fL (36.4-46.3) 11/11/23: RDW Coeff of Sena 13.2 % (11.5-14.5) 11/11/23 22: Plt Count 156 K/uL (130-400) 11/11/23 22: MPV 11.0 fL (9.4-12.4) 11/11/23 22:02 Immature Gran % (Auto) 0.4 % 11/11/23 22: Neut % (Auto) 88.5 % 11/11/23 22:02 Lymph % (Auto) 9.0 % 11/11/23 22:02 [place] % (Auto) 1.9 % 11/11/23 22:02 Eos % (Auto) 0.2 % 11/11/23 22:02 Baso % (Auto) 0.0 % 11/11/23 22: Neut # (Auto) 4.24 K/uL (1.40-6.50) 11/11/23 22: Lymph # (Auto) 0.43 K/uL (1.20-3.40) L 11/11/23 22:02 [place] # (Auto) 0.09 K/uL (0.11-0.59) L 11/11/23 22: Eos # (Auto) 0.01 K/uL (0.00-0.50) 11/11/23 22: Baso # (Auto) 0.00 K/uL (0.00-0.20) 11/11/23 22: Immature Gran # (Auto) 0.02 K/uL (0.01-0.20) 11/11/23 22:02 PT 19.8 Seconds (9.0-12.0) H 11/11/23 22:02 INR 1.9 (0.9-1.1) H 11/11/23 22:02 APTT 38 Seconds (21-31) H 11/11/23 22:02 PTT Ratio 1.3 11/11/23 22:02 Sodium 139 mmol/L (136-145) 11/11/23 22:02 Potassium 3.8 mmol/L (3.5-5.1) 11/11/23 22:02 Chloride 102 mmol/L (98-107) 11/11/23 22:02 Carbon Dioxide 23 mmol/L (21-32) 11/11/23 22:02 Anion Gap 14 (3-11) H 11/11/23 22:02 BUN 14 mg/dl (6-23) 11/11/23 22:02 Creatinine 1.20 mg/dl (0.6-1.4) 11/11/23 22:02 Est Cr Clr Drug Dosing 45.2 ml/min 11/11/23 22:02 Est GFR ( Amer) 66.3 ml/min 11/11/23 22:02 Est GFR (Non-Af Amer) 57.2 ml/min 11/11/23 22:02 BUN/Creatinine Ratio 11.7 (10-20) 11/11/23 22:02 Glucose 240 mg/dl (70-99(Fasting)) H 11/11/23 22:02 Calcium 10.6 mg/dl (8.6-10.3) H 11/11/23 22:02 Total Bilirubin 2.1 mg/dl (0.2-1.0) H 11/11/23 22:02 AST 486 U/L (13-39) H 11/11/23 22:02 ALT 315 U/L (7-52) H 11/11/23 22:02 Alkaline Phosphatase 98 U/L (34-104) 11/11/23 22:02 Troponin I High Sens 7.6 pg/ml (0-20) 11/11/23 22:02 Total Protein 8.0 gm/dl (6.0-8.3) 11/11/23 22:02 Albumin 5.1 gm/dl (3.4-5.0) H 11/11/23 22:02 Globulin 2.9 gm/dl (2.5-4.0) 11/11/23 22:02 Albumin/Globulin Ratio 1.8 (0.9-2) 11/11/23 22:02 Lipase 41 U/L (11-82) 11/11/23 22:02 Impressions Gallbladder Ultrasound 11/11/23 22:53 Exam(s): US GALLBLADDER EXAM: US Abdomen Limited, Gallbladder CLINICAL HISTORY: Upper Abdominal pain. TECHNIQUE: Real-time ultrasound of the right upper quadrant with image documentation. COMPARISON: No relevant prior studies available. FINDINGS: Liver: The liver measures 17.1 cm. Fatty infiltration of the liver. Gallbladder: Cholelithiasis. Thickening of the bladder wall could relate to acute cholecystitis or chronic liver disease. Common bile duct: The common bile duct is normal measuring 0.3 cm. No stones. No dilation. Pancreas: The pancreatic head and body are within normal limits. The tail is not visualized due to overlying bowel gas. Right kidney: The right kidney measures 10.7 cm. There are simple appearing renal cysts. 5.5 cm mass is present. IMPRESSION: 1. Cholelithiasis. Thickening of the bladder wall could relate to acute cholecystitis or chronic liver disease. 2. Fatty infiltration of the liver. 3. Redemonstrated by 0.5 cm mass of the right kidney. Electronically signed by: Viviane Damico MD 11/11/23 23:57 PM ECG Additional Comments: EKG. Normal sinus rhythm rate of 81. No acute ST changes seen Code Status & VTE Plan VTE Prophylaxis Plan VTE Prophylaxis will be ordered: Yes
[2023-11-12] MEDS ORDERED: ONDANSETRON INJ 2 MG/ML 2 ML VIAL IV PRN (05:40)
[2023-11-12] MEDS ORDERED: NITROGLYCERIN SL 0.4 MG/TAB TAB SL PRN (05:40)
[2023-11-12] MEDS: SODIUM CHLORIDE 0.9% 1,000 ML IV SCH (06:26)
[2023-11-12] MEDS: PIPERACILLIN/TAZOBACTAM 4.5 GM in DEXTROSE 5% MINI-B 100 ML IV SCH (06:40)
--- NOTE | 2023-11-12 06:59 | XRay Report ---
XR chest 1V not portable CLINICAL HISTORY: Chest pain, nonspecific TECHNIQUE: Single frontal radiograph of the chest was obtained. Comparison: Comparison is made to chest radiograph 10/04/2023 FINDINGS: No lines and tubes are seen. Calcified aortic knob is seen. The lungs are clear. No evidence of pleur al effusion or pneumothorax. IMPRESSION: No acute chest disease. ACT 112: Negative or not required by law. Electronically signed by: Kyle Devlin M.D. 11/12/2023 6:58 AM
--- NOTE | 2023-11-12 06:59 | Magnetic Resonance Report ---
MR MRCP CLINICAL HISTORY: elevated lft, choecystitis TECHNIQUE: Multiplanar multisequence MR images of the abdomen were obtained, as per MRCP protocol. . COMPARISON: Comparison is made to gallbladder ultrasound 11/11/2023 FINDINGS: Lower chest: No acute abnormality Liver: Unremarkable. No focal lesions are seen. Gallbladder and biliary tree: Gallstones are seen in the gallbladder neck. The gallbladder wall is th ickened measuring approximately 4 mm. No intra- or extrahepatic biliary ductal dilation. Pancreas: Unremarkable, no focal lesions. Spleen: Unremarkable. Adrenals: Unremarkable. Kidneys and ureters: Cysts are seen in the right kidney. Bowel: Diverticulosis is seen without evidence of diverticulitis. Small hiatal hernia is seen. Lymph nodes Retroperitoneal: Unremarkable. Mesenteric: Unremarkable. Peritoneum: Normal Vessels: Unremarkable. Abdominal wall: Unremarkable. Bones: Unremarkable. IMPRESSION: Cholelithiasis and gallbladder wall thickening concerning for cholecystitis. The common bile duct is unremarkable. Additional findings as above. ACT 112: Negative or not required by law. Electronically signed by: Kyle Devlin M.D. 11/12/2023 6:57 AM
[2023-11-12 07:40] LABS: Hematocrit (blood only) 40.4 % (42.0-52.0); Hemoglobin 14.3 g/dl (14.0-18.0); Immature Granulocytes # (auto) 0.01 K/uL (0.01-0.20); Immature Granulocytes % (auto) 0.3 %; Lymphocytes % (auto) 8.7 %; Mean Corpuscular Hemoglobin 31.2 pg (25.0-34.0); Mean Corpuscular Hgb Conc 35.4 g/dL (32.0-36.0); Mean Platelet Volume 10.5 fL (9.4-12.4); Monocytes # (auto) 0.12 K/uL (0.11-0.59); Monocytes % (auto) 3.5 %; Neutrophils # (auto) 3.01 K/uL (1.40-6.50); Neutrophils % (auto) 87.5 %; Platelet Count 139 K/uL (130-400); RDW Coefficient of Variation 13.1 % (11.5-14.5); RDW Standard Deviation 42.3 fL (36.4-46.3); Red Blood Count 4.59 M/uL (4.70-6.10); White Blood Count 3.44 K/ul (4.8-10.8)
[2023-11-12] MEDS: FAMOTIDINE 20MG IV PUSH 20 MG/5 ML SYR IV SCH (07:50)
[2023-11-12] MEDS: ISOSORBIDE MONO EXTENDED REL 60 MG TABCR PO SCH (07:50)
[2023-11-12] MEDS: ROSUVASTATIN CALCIUM 20 MG TAB PO SCH (07:50)
[2023-11-12] MEDS: RANOLAZINE 500 MG ER TAB PO SCH (07:50)
[2023-11-12] MEDS: METOPROLOL SUCC 25MG EXT REL TAB PO SCH (07:50)
[2023-11-12] MEDS: VITAMIN B COMPLEX TAB PO SCH (07:50)
[2023-11-12] MEDS: CEROVITE ADV FORMULA TAB PO SCH (07:50)
[2023-11-12] MEDS: ASPIRIN 81 MG ECTAB PO SCH (07:51)
[2023-11-12] MEDS: lisinopril 20 MG TAB PO SCH (07:51)
[2023-11-12] MEDS: amLODIPine BESYLATE 5 MG TAB PO SCH (07:51)
[2023-11-12] MEDS: EZETIMIBE 10 MG TAB PO SCH (07:51)
[2023-11-12] MEDS: CYANOCOBALAMIN (B-12) 2,500 MCG TABLET SL SCH (07:51)
[2023-11-12 07:56] LABS: Albumin Level 4.5 gm/dl (3.4-5.0); BUN Creatinine Ratio 14.7 (10-20); Bilirubin,Total 3.1 mg/dl (0.2-1.0); Creatinine Clr Calc Pharmacy 57.1 ml/min; Est GFR (African American) 87.9 ml/min; Est GFR (Non-African American) 75.8 ml/min; Magnesium 1.8 mg/dl (1.7-2.4); Total Protein 6.8 gm/dl (6.0-8.3)
[2023-11-12 07:59] LABS: Estimated Average Glucose 134 mg/dl; Hemoglobin A1C 6.3 % (4.5-5.6)
[2023-11-12 08:02] LABS: Troponin I High Sensitivity 6.4 pg/ml (0-20)
--- OUTSIDE RECORDS SUMMARY | 2023-11-12 08:28 | External Medical Summary | Summary of Care ---
Author Name Unknown Organization [facility] Address [address] [place] [address] Phone [phone] Care Team Providers Care Boring Machine Operator Vertical Name Role Phone Mario Mosquera MD Primary Care Provider + Reason for Visit * Reason Comments eRx-Medication Refill Encounter Details Date Type Department Care Team (Late st Contact Info) Description 10/12/2023 Refill Cardiology, [facility] [address] [place] [id number] Mario Mosquera MD [address] [place] [address] Dyslipidemia, goal LDL below 70; CHR ISCHEMIC HRT DIS NOS Allergies No known active allergiesdocumented as of this encounter (statuses as of 10/14/2023) Medications Medication Sig Dispensed Refills Start Date [...] 1 Tablet before bedtime. 0 06/06/2021 Active Acetaminophen ER 650 MG Oral Tablet Extended Release Take 1 Tablet by mouth every 8 hours as needed. 0 Active Esomeprazole Magnesium 40 MG Oral Capsule [...] (HCC) Take 1 tablet Mon, Wed, Th, Fri & Sat or as directed by coag clinic 75 Tablet 3 08/27/2023 Active Warfarin Sodium 5 MG Oral Tablet (Coumadin)Indicatio ns:PAF (paroxysmal atrial fibrillation) (HCC) TAKE 5MG (1 TABLET) TUES & SAT 2.5MG (1/2 TABLET) ALL OTHER DAYS BY MOUTH OR DIRECTED. 45 Tablet 3 09/03/2023 Active Nitroglycerin 0.4 MG Sublingual Tablet Sublingual (Nitrostat)Indicati ons:Chronic ischemic heart disease PLACE 1 TAB UNDER THE TONGUE EVERY 5 MINUTES NEEDED FOR PAIN, CHEST. 25 Tablet 11 10/07/2023 Active metFORMIN HCl ER 500 MG Oral Tablet Extended Release 24 Hour (Glucophage XR) Take 1 Tablet by mouth at bedtime. 0 10/05/2023 Active Ranolazine ER 500 MG Oral Tablet Extended Release 12 Hour (Ranexa) Take 1 Tablet by mouth in the morning. 0 10/05/2023 Active Ezetimibe 10 MG Oral Tablet (Zetia)Indications: Dyslipidemia, goal LDL below 70 TAKE 1 TABLET BY MOUTH EVERY DAY 90 Tablet 3 10/14/2023 Active Isosorbide Mononitrate ER 120 MG Oral Tablet Extended Release 24 Hour (Imdur)Indications: Chronic ischemic heart disease TAKE 1 TABLET BY MOUTH EVERY DAY 90 Tablet 3 10/14/2023 Active Isosorbide Mononitrate ER 120 MG Oral Tablet Extended Release 24 Hour (Imdur)Indications: Chronic ischemic heart disease TAKE 1 TABLET BY MOUTH EVERY DAY 90 Tablet 3 10/18/2022 4 Discontinued Ezetimibe 10 MG Oral Tablet (Zetia)Indications: Dyslipidemia, goal LDL below 70 TAKE 1 TABLET BY MOUTH EVERY DAY 90 Tablet 3 10/18/2022 4 Discontinued documented as of this encounter (statuses as of 10/14/2023) Active Problems Problem Noted Date Diagnosed Date Stenosis of right subclavian artery 11/17/2021 Senile osteoporosis 08/30/2021 Chronic kidney disease, stage 3 unspecified 10/10 Diastolic dysfunction 11/03/2018 THERESA (obstructive sleep apnea) 11/20/2017 Parathyroid abnormality 08/19/2017 Lupus anticoagulant disorder 10/17/2016 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 0 10/01/2016 [...] as of this encounter (statuses as of 10/14/2023) Resolved Problems Problem Noted Date Diagnosed Date [...] as of this encounter (statuses as of 10/14/2023) Immunizations Name Administration Dates Next Due COVID-19 mRNA, LNP-s, No Pre serve, 2-Dose Series ([facility]) 06/17/2021,11/18/2020,10/28/2020 COVID-19, LNP-s, No Preserve , Brennan-sucrose, Ages 12+ ([facility]) 12/22/2021 Covid-19, Mrna, Lnp-s, Pf, B ivalent, [...] Telephone Encounter - Orlando Zelaya PA-C - 10/14/2023 8:07 AM ESTSigned Prescriptions: Disp Refills Ezetimibe 10 MG Oral Tablet (Zetia) 90 Tab*3 Sig: TAKE 1 TABLET BY MOUTH EVERY DAY Authorizing Provider: ORLANDO ZELAYA Isosorbide Mononitrate ER 120 MG Oral Tabl*90 Tab*3 Sig: TAKE 1 TABLET BY MOUTH EVERY DAY Authorizing Provider: ORLANDO ZELAYA * Telephone Encounter - Torrie Mcneil COT - 10/14/2023 7:54 AM ESTPending Prescriptions: Disp Refills Ezetimibe 10 MG Oral Tablet [Pharmacy Med *90 Tab*3 Sig: TAKE 1 TABLET BY MOUTH EVERY DAY Isosorbide Mononitrate ER 120 MG Oral Tabl*90 Tab*3 Sig: TAKE 1 TABLET BY MOUTH EVERY DAY * Telephone Encounter - Torrie Mcneil COT - 10/14/2023 7:54 AM EST Did you pend patient's preferred pharmacy and medication before forwarding?yes Pharmacy: [id number] [address] [place] [address] Pending Prescriptions: Disp Refills Ezetimibe 10 MG Oral Tablet (Zetia) [Phar*90 Tab*3 Sig: TAKE 1 TABLET BY MOUTH EVERY DAY Isosorbide Mononitrate ER 120 MG Oral Tab*90 Tab*3 Sig: TAKE 1 TABLET BY MOUTH EVERY DAY Last Visit: 08/22/2023 (in office), 01/08/2020 (telemedicine) Next Visit: 11/11/2023 If no future appointments scheduled, and last appointment is greater than a year ago, please schedule patient for a follow-up appointment Last date the medication was ordered: 10-18-2022 Is this request for a controlled substance?No [...] AM HGBA1C 6.2 (H) 01/06/2020 09:22 AM documented in this encounter Plan of Treatment Upcoming Encounters Date Type Department Care Team (Krishna st Contact Info) Description 10/21/2023 8:00 AM EST Anticoagulation Pharmacy, [facility] [address] [facility] [place] [address] Pharmacist1, [facility] [address] [facility] [place] [address] 11/11/2023 3:00 PM EST Office Visit Cardiology, [facility] [address] [place] [address] Orlando Zelaya PA-C [address] [place] [address] 12/27/2023 8:40 AM EDT Office Visit General Internal Medicine [facility] [address] [facility] [place] [address] Mario Mosquera MD 200 [facility] [place] [address] 06/30/2024 9:40 AM EDT Office Visit Rheumatology [facility] [address] [place] [address] Damion Mulligan MD [address] [place], [place] [address] Health Maintenance Due Date Last Done Comments [...] D LEVEL ONCE IN A LIFETIME-USE SMARTSET# [id number] Completed 06/26/2023, 01/16/2023, 06/20/2022, Additional history exists [...] this encounter Medical Devices Implanted Type Area Inside Technical Sales Representative Device Identifier Shelf Expiration Date Model / Serial / Lot Lens 24.0 Mx60 - [id number] - [id number] Implanted:Qty: 1 on 01/30/2018 by Russell Alaniz MD at OR [facility] Left: Eye [employer]CH [employer] LOMB : SURGICAL 07/09/2020 MX60-24.0 / [id number] / [id number] Envista Hydrophobic Acrylic Intraoular Lens Implanted:Qty: 1 on 02/11/2018 by Russell Alaniz MD at OR [facility] Right: Eye BAUSCH & LOMB 08/08/2020 [id number] / [id number] / [id number] documented as of this encounter Visit Diagnoses Diagnosis Dyslipidemia, goal LDL below 70 Other and unspecified hyperlipidemia CHR ISCHEMIC HRT DIS NOS Chronic ischemic heart disease, unspecified documented in this encounter Advance Directives Latest [...] and were consensually agreed upon. Care Teams Boring Machine Operator Vertical Relationship Specialty Start Date End Date Mario Mosquera MD [address] [place] [address] PCP - General Internal Medicine 11/09/13 documented as of this encounter
--- OUTSIDE RECORDS SUMMARY | 2023-11-12 08:28 | External Medical Summary | Summary of Care ---
Author Name Unknown Organization [facility] Address [address] [place] [address] Phone [phone] Care Team Providers Care Production Reproduction Manager Name Role Phone Mario Mosquera MD Primary Care Provider + Reason for Visit * Reason Comments Dosage Adjustment In Person (Anticoag Cl inic) Encounter Details Date Type Department Care Team (Latest Contact Info) Description 10/21/2023 8:00 AM EST Anticoagulation Pharmacy, [facility] [address] [place] [address] Pharmacist1, [facility] 200 [facility] [place] [address] PAF (paroxysmal atrial fibrillation) (HCC)*; Lupus anticoagulant disorder (HCC) Allergies No known active allergiesdocumented as of this encounter (statuses as of 10/21/2023) Medications Medication Sig Dispensed Refills Start Date [...] 10/05/2023 Active Ezetimibe 10 MG Oral Tablet (Zetia)Indications:Dy slipidemia, goal LDL below 70 TAKE 1 TABLET BY MOUTH EVERY DAY 90 Tablet 3 10/14/2023 Active Isosorbide Mononitrate ER 120 MG Oral Tablet Extended Release 24 Hour (Imdur)Indications:Ch ronic ischemic heart disease TAKE 1 TABLET BY MOUTH EVERY DAY 90 Tablet 3 10/14/2023 Active documented as of this encounter (statuses as of 10/21/2023) Active Problems Problem Noted Date Diagnosed Date Stenosis of right subclavian artery 11/17/2021 Senile osteoporosis 08/30/2021 Chronic kidney disease, stage 3 unspecified 10/10 Diastolic dysfunction 11/03/2018 THERESA (obstructive sleep apnea) 11/20/2017 Parathyroid abnormality 08/19/2017 Lupus anticoagulant disorder 10/17/2016 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 Severe atherosclerotic plaque(s) in the descending aorta PAF (paroxysmal atrial fibrillation) 07/27/2016 High risk for fracture due to osteoporosis by DE XA scan 06/18/2016 Old ME (myocardial infarction) 06/06/2012 Mixed hyperlipidemia 08/16/2009 Overview: [...] as of this encounter (statuses as of 10/21/2023) Resolved Problems Problem Noted Date Diagnosed Date [...] 06/18/2016 08/19/2017 Diastolic CHF 12/28/2015 11/03/2018 Acute ME 05/30/2012 06/06/2012 Chronic ischemic heart disease 01/17/2007 12/25/2018 Pneumonia due to organism Overview: ICD-10 update of inactive term IDIO PERIPH NEURPTHY NOS 07/2018 PURE HYPERCHOLESTEROLEM 04/2009 Overview: Per Lipid Taxonomy. documented as of this encounter (statuses as of 10/21/2023) Immunizations Name Administration Dates Next Due COVID-19 mRNA, LNP-s, No Pre serve, 2-Dose Series ([facility]) 06/17/2021,11/18/2020,10/28/2020 COVID-19, LNP-s, No Preserve , Brennan-sucrose, Ages 12+ ([facility]) 12/22/2021 Covid-19, Mrna, Lnp-s, Pf, B ivalent, 30 Mcg, IM, 12 yrs and above ([facility]) 06/29/2023,06/11/2022 H1N1 2009 Influenza, IM 10/01/2009 Pneumococcal [...] of this encounter Progress Notes * Anthony Raymond, [facility] - 10/21/2023 7:45 AM EST Images from the original note were not included. Medication Therapy Disease Management - Anticoagulation Andrew Reardon 1945 Description Needs reduced dose on doxycyline Patient Findings Positives: Change in health (He was recently in [facility] and A1C was elevated so he was started on metformin.), Change in medications (He was started on Metformin rescently.) Negatives: Signs/symptoms of thrombosis, Signs/symptoms of bleeding, Change in alcohol use, Change in activity, Upcoming invasive procedure, Missed doses, Extra doses, Change in diet/appetite, Bruising INR Result As of 10/21/2023 INR goal: 2.0-3.0 INR used for dosin.4 (10/21/2023) Warfarin Plan As of 10/21/2023 Full warfarin instructions: 10/21: Hold; 10/22: 1 mg; Otherwise 2.5 mg every Sat, Sat, Sat; 1 mg all other days Next INR check: 12/02/2023 Repeat PT/INR in 6 week(s) Weekly dose: not changed Anthony Goins RPh, CACP, CDE Clinical Pharmacist Medication Therapy [facility] 10/21/2023 7:55 AM documented in this encounter Plan of Treatment Upcoming Encounters Date Type Department Care Team (Late st Contact Info) Description 11/11/2023 3:00 PM EST Office Visit Cardiology, [facility] [place] [address] Noel Knapp PA-C [address] [place] [address] 12/02/2023 8:00 AM EDT Anticoagulation Pharmacy, [facility] [place] [address] [place] [address] Pharmacist1, [facility] [address] [place] [address] 12/27/2023 8:40 AM EDT Office Visit General Internal Medicine [facility] [place] [address] [place] [address] Mario Mosquera MD [address] [place] [address] 06/30/2024 9:40 AM EDT Office Visit Rheumatology [facility] [place] [id number] [place] [address] Damion Mulligan MD [address] [place] [address] Health Maintenance Due Date Last Done Comments [...] D LEVEL ONCE IN A LIFETIME-USE SMARTSET# [id number] Completed 06/26/2023, 01/16/2023, 06/20/2022, Additional history exists [...] this encounter Medical Devices Implanted Type Area Trustee Of Estate Device Identifier Shelf Expiration Date Model / Serial / Lot Lens 24.0 Mx60 - [id number] - [id number] Implanted:Qty: 1 on 01/30/2018 by Russell Alaniz MD at OR [facility] Left: Eye [employer]CH [employer] LOM[employer] : SURGICAL 07/09/2020 MX60-24.0 / [id number] / [id number] Envista Hydrophobic Acrylic Intraoular Lens Implanted:Qty: 1 on 02/11/2018 by Russell Alaniz MD at OR [facility] Right: Eye [employer]CH [employer] LOMB 08/08/2020 [id number] / [id number] / [id number] documented as of this encounter Procedures Procedure Name Priority Date/Time Associated Diagnosis Comments INR FINGERSTICK, POINT OF CARE ARIEL 10/21/2023 7:51 AM EST documented in this encounter Results * INR FINGERSTICK, POINT OF CARE (10/21/2023 7:51 AM EST) Fingerstick INR 4.4 INR 10:06 AM EST [facility] 56-02 Blood 10/21/2023 7:51 AM EST 10/21/2023 10:06 AM EST Narrative [facility] 56-02 - 10/21/2023 10:06 AM EST Therapeutic ranges for non-operative patients: Prophylaxsis/treatment of DVT: (Range:2.0-3.0) Treatment of pulmonary embolism:(Range:2.0-3.0) Prevention of systemic embolism from: -tissue heart valves -acute myocardial infarction -valvular heart disease -atrial fibrillation (Range: 2.0-3.0) Mechanical prosthetic valves: (Range: 2.5-3.5) [facility] Pharmacist1 LAB POINT OF C ARE TEST DOCKED DEVICE UNSOLICITED RESULTS [facility] [address]- [address] [place] [address] documented in this encounter Visit Diagnoses Diagnosis [...] and were consensually agreed upon. Care Teams Production Reproduction Manager Relationship Specialty Start Date End Date Mario Mosquera MD [address] [place], [place] [address] [address] PCP - General Internal Medicine 11/09/13 documented as of this encounter
--- OUTSIDE RECORDS SUMMARY | 2023-11-12 08:28 | External Medical Summary | Summary of Care ---
Author Name Unknown Organization [facility] Address [address] [place] [address] Phone [phone] Care Team Providers Care Auto Fleet Maintenance Manager Name Role Phone Mario Mosquera MD Primary Care Provider + Reason for Visit * Reason Onset Date Comments Appointment 10/10/2023 Encounter Details Date Type Department Care Team (Late st Contact Info) Description 10/10/2023 Telephone General Internal Medicine [facility] [address] [place] [address] Mario Mosquera MD [address] [place] [address] Appointment (/) Allergies No known active allergiesdocumented as of this encounter (statuses as of 10/10/2023) Medications Medication Sig Dispensed Refills Start Date [...] mouth in the morning. 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 Severe atherosclerotic plaque(s) in the descending aorta PAF (paroxysmal atrial fibrillation) 07/27/2016 High risk for fracture due to osteoporosis by DE XA scan 06/18/2016 Old ID (myocardial infarction) 06/06/2012 Mixed hyperlipidemia 08/16/2009 Overview: [...] as of this encounter (statuses as of 10/10/2023) Resolved Problems Problem Noted Date Diagnosed Date [...] as of this encounter (statuses as of 10/10/2023) Immunizations Name Administration Dates Next Due COVID-19 mRNA, LNP-s, No Pre serve, 2-Dose Series ([facility]) 06/17/2021,11/18/2020,10/28/2020 COVID-19, LNP-s, No Preserve , Brennan-sucrose, Ages 12+ ([facility]) 12/22/2021 Covid-19, Mrna, Lnp-s, Pf, B ivalent, 30 Mcg, IM, 12 yrs and above ([facility]) 06/29/2023,06/11/2022 H1N1 2009 Influenza, IM 10/01/2009 Pneumococcal [...] encounter Miscellaneous Notes * Telephone Encounter - Erendira Goel, THERESA - 10/10/2023 9:57 AM EST Pt needs to schedule the following : NM MYOCARD PERF IMG SPECT MULT STUDIES WITH PHARM INTERV [81741.02] (Order [id number]) DX: Chest pain, unspecified type [R07.9] - Primary Coronary artery disease involving [place] coronary artery of [place] heart without angina pectoris [I25.10] Old ID (myocardial infarction) [I25.2] Please contact pt to schedule appointment Thank You documented in this encounter Plan of Treatment Upcoming Encounters Date Type Department Care Team (Late st Contact Info) Description 10/21/2023 8:00 AM EST Anticoagulation Pharmacy, [facility] [address] [facility] [place] [address] Pharmacist1, [facility] 200 [facility] [place] [address] 11/11/2023 3:00 PM EST Office Visit Cardiology, [facility] [address] [place] [address] Noel Knapp PA-C [address] [place] [address] 12/27/2023 8:40 AM EDT Office Visit General Internal Medicine [facility] [address] [facility] [place] [address] Mario Mosquera MD [address] [facility] [place] [address] 06/30/2024 9:40 AM EDT Office Visit Rheumatology [place] [address] [place] [address] Damion Mulligan MD [address] [place] [address] Health Maintenance Due Date Last Done Comments [...] D LEVEL ONCE IN A LIFETIME-USE SMARTSET# [id number] Completed 06/26/2023, 01/16/2023, 06/20/2022, Additional history exists [...] this encounter Medical Devices Implanted Type Area Electric Motor Mechanic Device Identifier Shelf Expiration Date Model / Serial / Lot Lens 24.0 Mx60 - [id number] - [id number] Implanted:Qty: 1 on 01/30/2018 by Russell Alaniz MD at OR [facility] Left: Eye [employer] LOMB : SURGICAL 07/09/2020 MX60-24.0 / [id number] / [id number] [employer]ista Hydrophobic Acrylic Intraoular Lens Implanted:Qty: 1 on 02/11/2018 by Russell Alaniz MD at OR [facility] Right: Eye [employer] LOMB 08/08/2020 [id number] / [id number] / [id number] documented as of this encounter Advance Directives [...] and were consensually agreed upon. Care Teams Auto Fleet Maintenance Manager Relationship Specialty Start Date End Date Mario Mosquera MD [address] [place] [address] PCP - General Internal Medicine 11/09/13 documented as of this encounter
--- OUTSIDE RECORDS SUMMARY | 2023-11-12 08:28 | External Medical Summary | Summary of Care ---
Author Name Unknown Organization [facility] Address [address] [place] [address] Phone [phone] Care Team Providers Care English Lecturer Name Role Phone Mario Mosquera MD Primary Care Provider + Reason for Visit * Reason Onset Date Comments Hospital Follow-Up 10/07/2023 ERNA Encounter Details Date Type Department Care Team (Late st Contact Info) Description 10/07/2023 Telephone Ancillary [facility] [place] [address] [place] [address] Mary Cooper, BEREKET Hospital Follow-Up (ERNA) Allergies No known active allergiesdocumented as of this encounter (statuses as of 10/08/2023) Medications Medication Sig Dispensed Refills Start Date [...] PAIN, CHEST. 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 Severe atherosclerotic plaque(s) in the descending aorta PAF (paroxysmal atrial fibrillation) 07/27/2016 High risk for fracture due to osteoporosis by DE XA scan 06/18/2016 Old [place] (myocardial infarction) 06/06/2012 Mixed hyperlipidemia 08/16/2009 Overview: [...] as of this encounter (statuses as of 10/08/2023) Resolved Problems Problem Noted Date Diagnosed Date [...] 06/18/2016 08/19/2017 Diastolic CHF 12/28/2015 11/03/2018 Acute [place] 05/30/2012 06/06/2012 Chronic ischemic heart disease 01/17/2007 12/25/2018 Pneumonia due to organism Overview: ICD-10 update of inactive term IDIO PERIPH NEURPTHY NOS 07/2018 PURE HYPERCHOLESTEROLEM 04/2009 Overview: Per Lipid Taxonomy. documented as of this encounter (statuses as of 10/08/2023) Immunizations Name Administration Dates Next Due COVID-19 mRNA, LNP-s, No Pre serve, 2-Dose Series ([employer]) 06/17/2021,11/18/2020,10/28/2020 COVID-19, LNP-s, No Preserve , Brennan-sucrose, Ages 12+ (Pfizer) 12/22/2021 Covid-19, Mrna, Lnp-s, Pf, B ivalent, 30 Mcg, IM, 12 yrs and above ([employer]) 06/29/2023,06/11/2022 H1N1 2009 Influenza, IM 10/01/2009 Pneumococcal [...] encounter Miscellaneous Notes * Telephone Encounter - Mary Cooper RN - 10/07/2023 3:15 PM EST Transitions of Care Note Reason for Referral:Recent Admission Phone visit for follow up: ERNA left message asking patient to please return my call to discuss hospitalization, medications and follow up appointments. Will attempt to call tomorrow 10/08 Admitted to: [facility], Date: 10/04 Discharged to: Home self care, Date: 10/05 Diagnosis driving hospitalization: Chronic angina pectoris Diabetes mellitus II--new diagnosis documented in this encounter Plan of Treatment Upcoming Encounters Date Type Department Care Team (Late st Contact Info) Description 10/09/2023 11:00 AM EST Office Visit General Internal Medicine [facility] [place] [address] [place] [address] Nyla Farnsworth MD [address] [place] [address] 10/21/2023 8:00 AM EST [facility]tico[facility] Pharmacy, [facility] [place] [address] [facility] [place] [address] [address], [facility] [address] [place] [address] 11/11/2023 3:00 PM EST Office Visit Cardiology, [facility] [address] [place] [address] Noel Knapp PA-C [address] [facility] [place] [address] 12/23/2023 1:40 PM EDT Office Visit Endocrinology, [place] [address] [place], [place] [id number] Hetal Cali MD [address] [place] [address] 12/27/2023 8:40 AM EDT Office Visit General Internal Medicine [facility] [place] [address] [place] [address] Mario Mosquera MD 200 [facility] [place] [address] 06/30/2024 9:40 AM EDT Office Visit Rheumatology [place] [id number] [place] [address] Damion Mulligan MD [address] [place] [address] Health Maintenance Due Date Last Done Comments [...] D LEVEL ONCE IN A LIFETIME-USE SMARTSET# [id number] Completed 06/26/2023, 01/16/2023, 06/20/2022, Additional history exists [...] this encounter Medical Devices Implanted Type Area Applications Support Lead Device Identifier Shelf Expiration Date Model / Serial / Lot Lens 24.0 Mx60 - [id number] - [id number] Implanted:Qty: 1 on 01/30/2018 by Russell Alaniz MD at OR [facility] Left: Eye BAUSCH & LOMB : SURGICAL 07/09/2020 MX60-24.0 / [id number] / [id number] [employer] Hydrophobic Acrylic Intraoular Lens Implanted:Qty: 1 on 02/11/2018 by Russell Alaniz MD at OR [facility] Right: Eye BAUSCH [employer] LOMB 08/08/2020 [id number] / [id number] / [id number] documented as of this encounter Advance Directives [...] and were consensually agreed upon. Care Teams English Lecturer Relationship Specialty Start Date End Date Mario Mosquera MD 200 [place] [address] PCP - General Internal Medicine 11/09/13 documented as of this encounter
--- OUTSIDE RECORDS SUMMARY | 2023-11-12 08:28 | External Medical Summary | Summary of Care ---
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 Severe atherosclerotic plaque(s) in the descending aorta PAF (paroxysmal atrial fibrillation) 07/27/2016 High risk for fracture due to osteoporosis by DE XA scan 06/18/2016 Old [place] (myocardial infarction) 06/06/2012 Mixed hyperlipidemia 08/16/2009 Overview: [...] 06/18/2016 08/19/2017 Diastolic CHF 12/28/2015 11/03/2018 Acute KS 05/30/2012 06/06/2012 Chronic ischemic heart disease 01/17/2007 12/25/2018 Pneumonia due to organism Overview: ICD-10 update of inactive term IDIO PERIPH NEURPTHY NOS 07/2018 PURE HYPERCHOLESTEROLEM 04/2009 Overview: Per Lipid Taxonomy. documented as of this encounter (statuses as of 10/08/2023) Immunizations Name Administration Dates Next Due COVID-19 mRNA, LNP-s, No Pre serve, 2-Dose Series ([employer]) 06/17/2021,11/18/2020,10/28/2020 COVID-19, LNP-s, No Preserve , Brennan-sucrose, Ages 12+ (Pfizer) 12/22/2021 Covid-19, Mrna, Lnp-s, Pf, B ivalent, 30 Mcg, IM, 12 yrs and above ([employer]) 06/29/2023,06/11/2022 H1N1 2009 Influenza, IM 10/01/2009 Pneumococcal [...] AM EST Office Visit General Internal Medicine [facility] [address] [place] [address] Nyla Farnsworth MD [address] [place] [address] 10/21/2023 8:00 AM EST [facility]tico[facility] Pharm[facility], [facility] [place] [address] [place] [address] Pharmacist1, [facility] [address] [place] [address] 11/11/2023 3:00 PM EST Office Visit Cardiology, [facility] 132 [facility] [place] [address] Noel Knapp PA-C [address] [place] [address] 12/23/2023 1:40 PM EDT Office Visit Endocrinology, [place] [address] [facility] [place] [address] Hetal Cali MD [address] [place] [facility] [address] 12/27/2023 8:40 AM EDT Office Visit General Internal Medicine [facility] 200 [facility] [place] [address] Mario Mosquera MD 200 [facility] [place] [address] 06/30/2024 9:40 AM EDT Office Visit Rheumatology [place] [address] [address] [place] [address] Damion Mulligan MD [facility] [place] [address] Health Maintenance Due Date Last Done Comments [...] D LEVEL ONCE IN A LIFETIME-USE SMARTSET# [id number] Completed 06/26/2023, 01/16/2023, 06/20/2022, Additional history exists [...] this encounter Medical Devices Implanted Type Area Stencil Typist Device Identifier Shelf Expiration Date Model / Serial / Lot Lens 24.0 Mx60 - [id number] - [id number] Implanted:Qty: 1 on 01/30/2018 by Russell Alaniz MD at OR [facility] Left: Eye BAUSCH [employer] LOMB : SURGICAL 07/09/2020 MX60-24.0 / [id number] / [id number] [employer] Hydrophobic Acrylic Intraoular Lens Implanted:Qty: 1 on 02/11/2018 by Russell Alaniz MD at OR [facility] Right: Eye [employer]OMB 08/08/2020 [id number] / [id number] / [id number] documented as of this encounter Procedures Procedure Name Priority Date/Time Associated Diagnosis Comments ECHOCARDIOLOGY SCANNED RESULT 10/04/2023 documented in this encounter Results * ECHOCARDIOLOGY SCANNED RESULT (10/04/2023) 10/04/2023 Lea SAUCEDO ECHOCARDIOLOGY documented in this encounter Advance Directives Latest [...] and were consensually agreed upon. Care Teams Gallery Or Museum Guide Relationship Specialty Start Date End Date Mario Mosquera MD 200 [facility] [place] [address] PCP - General Internal Medicine 11/09/13 documented as of this encounter
--- OUTSIDE RECORDS SUMMARY | 2023-11-12 08:28 | External Medical Summary | Summary of Care ---
Author Name Unknown Organization [facility] Address [address] [place] [facility] [place] [address] Phone [phone] Care Team Providers Care Housing Liaison Name Role Phone Mario Mosquera MD Primary Care Provider + Reason for Visit * Reason Comments Follow Up Bilateral knee Encounter Details Date Type Department Care Team (Latest Contact Info) Description 11/11/2023 2:00 PM EST Office Visit Orthopaedics [facility] [address] [place] [address] Rafael Sanford MD [address] [place] [address] Primary osteoarthritis of both knees*; Bone lesion Allergies No known active allergiesdocumented as of this encounter (statuses as of 11/11/2023) Medications Medication Sig Dispensed Refills Start Date [...] (HCC) Take 1 tablet Mon, Wed, , Fri & Sat or as directed [...] EVERY DAY 90 Tablet 3 10/14/2023 Active Hospital, Clinic, or Other Facility Administered Medication Ordered Dose Route Frequency Start Date End Date Status lidocaine 1% 1 mL - triamcinolone acetonide 40 mg/mL 1 mL inj 2 mLIndications:Primary osteoarthritis of both knees 2 mL IJ ONCE 11/11/2023 11/11/2023 Ended lidocaine 1% 1 mL - triamcinolone acetonide 40 mg/mL 1 mL inj 2 mLIndications:Primary osteoarthritis of both knees 2 mL IJ ONCE 11/11/2023 11/11/2023 Ended documented as of this encounter (statuses as of 11/11/2023) Active Problems Problem Noted Date Diagnosed Date Stenosis of right subclavian artery 11/17/2021 Senile osteoporosis 08/30/2021 Chronic kidney disease, stage 3 unspecified 10/10 Diastolic dysfunction 11/03/2018 THERESA (obstructive sleep apnea) 11/20/2017 Parathyroid abnormality 08/19/2017 Lupus anticoagulant disorder 10/17/2016 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 Severe atherosclerotic plaque(s) in the descending aorta PAF (paroxysmal atrial fibrillation) 07/27/2016 High risk for fracture due to osteoporosis by DE XA scan 06/18/2016 Old [place] (myocardial infarction) 06/06/2012 Mixed hyperlipidemia 08/16/2009 Overview: [...] as of this encounter (statuses as of 11/11/2023) Resolved Problems Problem Noted Date Diagnosed Date [...] 06/18/2016 08/19/2017 Diastolic CHF 12/28/2015 11/03/2018 Acute [place] 05/30/2012 06/06/2012 Chronic ischemic heart disease 01/17/2007 12/25/2018 Pneumonia due to organism Overview: ICD-10 update of inactive term IDIO PERIPH NEURPTHY NOS 07/2018 PURE HYPERCHOLESTEROLEM 04/2009 Overview: Per Lipid Taxonomy. documented as of this encounter (statuses as of 11/11/2023) Immunizations Name Administration Dates Next Due COVID-19 mRNA, LNP-s, No Pre serve, 2-Dose Series ([employer]) 06/17/2021,11/18/2020,10/28/2020 COVID-19, LNP-s, No Preserve , Brennan-sucrose, Ages 12+ ([employer]) 12/22/2021 Covid-19, Mrna, Lnp-s, Pf, B ivalent, [...] Date Smoking Tobacco: Former Cigarettes 0.5 55 0 09/24/1951 - 09/24/2005 Smokeless Tobacco: Never Chew Quit: 02/14/2006 [...] Progress Notes * Rafael Sanford MD - 11/11/2023 2:08 PM EST Andrew Reardon [id number] Andrew Reardon is a 75 year old male who presents for f/u to [facility] for left greater than right knee injury/pain. I saw him originally for this on 03/10/2021 Most recent visit for these issues was on 07/30/2023 Andrew Reardon is here with his Quality: [...] Last bilateral knee steroid injection on 12/18/22. Additional history 07/30/2023 presents for bilateral knee pain. Pain 6/10 x 1 month. Last bilateral knee steroid injection on 04/17/23 helped. Since that visit: presents today for f/u bilateral knee pain Last bilateral knee steroid injection on 07/30/23. Lasted 3 months. Pain today bilateral knee 12/17. ROS: ROS per HPI otherwise non-contributory Past Medical History: Diagnosis Date Adverse reaction to DAYSI inhibitor drug 03/17/2020 CAD (coronary artery disease) Diastolic CHF ([facility]) 12/28/2015 Diastolic dysfunction 11/03/2018 Dyslipidemia, goal LDL below 100 08/16/2009 Per Lipid Taxonomy. 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 Repeat intra-articular steroid injections performed today 11/11/2023. Important note we also attempt to do obtain prior authorization for viscosupplementation. This was denied by his insurance as he is not done therapy. Not willing to do therapy at this time. Additional options discussed have included: Physical therapy, knee bracing, OTC/prescription medications, topical anti- inflammatory, hyaluronicacid injections (one shot and three shot) 2) Bone lesion R knee Likely bone infarct per discussion with Dr. Cordon ([facility] radiology [facility]) Repeat radiograph 01/31/2022 showed: . Stable appearance of distal femoral sclerotic lesion. With prior radiograph from 03/10/2021 this shows nearly 11 months of stability Recommend repeat radiographs in 2 years. Discussed with patient the importance of having this done again in 2 years from Radiography dated 01/31/2022. Placed order today for this to be obtained as future study. Recommend he have this done on/after 02/01/2024. He can either have this done at the time of his next follow-up as long as he is seen in the next 3-4 months or independently of that visit. Recommend follow-up in 3-4 months for follow-up bilateral knee arthritis as well as right knee bonelesion and likely bilateral knee steroid injection Previous recommendations: Tylenol (Acetaminophen) Regular Strength 325 [...] Rafael Sanford MD Primary Care Sports Medicine [facility] Orthopaedics [facility] [address] [facility] [address] documented in this encounter Nursing Notes * Nelda Nogueira, RN - 11/11/2023 1:49 PM EST Pt presents today for f/u bilateral knee pain Last bilateral knee steroid injection on 07/30/23. Lasted 3 months. Pain today bilateral knee 12/17. Nelda Nogueira RN documented in this encounter Plan of Treatment Upcoming Encounters Date Type Department Care Team (Late st Contact Info) Description 11/11/2023 3:00 PM EST Office Visit Cardiology, [facility] 132 [place] [address] Noel Knapp PA-C 132 [facility] [place] [address] 12/02/2023 8:00 AM EDT Anticoagulation Pharmacy, [facility] 200 [facility] [place] [address] Pharmacist1, [facility] 200 [facility] [place] [address] 12/27/2023 8:40 AM EDT Office Visit General Internal Medicine [facility] 200 [facility] [place] [address] Mario Mosquera MD 200 [facility] [place] [address] 06/30/2024 9:40 AM EDT Office Visit Rheumatology [address] [place] [address] Damion Mulligan MD [facility] [facility] [place] [address] Scheduled Orders Name Type Priority Associated Diagnoses Orde r Schedule XR KNEE 3 VIEWS Medical Imaging Routine Bone lesion Expected: 01/29/2024, Expires: 12/11/2024 Health Maintenance Due Date Last Done Comments [...] D LEVEL ONCE IN A LIFETIME-USE SMARTSET# [id number] Completed 06/26/2023, 01/16/2023, 06/20/2022, Additional history exists [...] this encounter Medical Devices Implanted Type Area Coding Spec Device Identifier Shelf Expiration Date Model / Serial / Lot Lens 24.0 Mx60 - [id number] - [id number] Implanted:Qty: 1 on 01/30/2018 by Russell Alaniz MD at OR [facility] Left: Eye [employer]OM[employer] : SURGICAL 07/09/2020 MX60-24.0 / [id number] / [id number] [employer] Hydrophobic Acrylic Intraoular Lens Implanted:Qty: 1 on 02/11/2018 by Russell Alaniz MD at OR [facility] Right: Eye [employer]CH [employer] LOMB 08/08/2020 [id number] / [id number] / [id number] documented as of this encounter Visit Diagnoses Diagnosis Primary osteoarthritis of both knees- Primary Primary localized osteoarthrosis, lower leg Bone lesion Disorder of bone and cartilage, unspecified documented in this encounter Administered Medications Inactive Administered Medications - up to 3 most recent administrations Medication Order MAR Action Action Date Dose Rate Site lidocaine 1% 1 mL - triamcinolone acetonide 40 mg/mL 1 mL inj 2 mL 2 mL, Injection, ONCE, On Sat11/11/23 at 1445, For 1 dose, Lidocaine 1% 1mL Triamcinolone Acetonide 40 mg/mL 1 mL (Final concentration = 20 mg/mL) REFRIGERATE and SHAKE WELL Given 11/11/2023 2:22 PM EST 2 mL Knee Right lidocaine 1% 1 mL - triamcinolone acetonide 40 mg/mL 1 mL inj 2 mL 2 mL, Injection, ONCE, On Sat11/11/23 at 1445, For 1 dose, Lidocaine 1% 1mL Triamcinolone Acetonide 40 mg/mL 1 mL (Final concentration = 20 mg/mL) REFRIGERATE and SHAKE WELL Given 11/11/2023 2:22 PM EST 2 mL Knee Left documented [...] and were consensually agreed upon. Care Teams Housing Liaison Relationship Specialty Start Date End Date Mario Mosquera MD 200 [facility], [place] [id number] PCP - General Internal Medicine 11/09/13 documented as of this encounter
--- OUTSIDE RECORDS SUMMARY | 2023-11-12 08:28 | External Medical Summary | Summary of Care ---
Author Name Unknown Organization [facility] Address [address] [facility] [place] [address] Phone [phone] Care Team Providers Care Sports Writer Name Role Phone Mario Mosquera MD Primary Care Provider + Reason for Visit * Reason Comments Follow Up Bilateral knee Encounter Details Date Type Department Care Team (Latest Contact Info) Description 11/11/2023 2:00 PM EST Office Visit Orthopaedics [facility] [address] [place] [address] Rafael Sanford MD [address] [place] [address] Primary osteoarthritis of both knees*; Bone lesion [...] Parathyroid abnormality 08/19/2017 Lupus anticoagulant disorder 10/17/2016 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 Severe atherosclerotic plaque(s) in the descending aorta PAF (paroxysmal atrial fibrillation) 07/27/2016 High risk for fracture due to osteoporosis by DE XA scan 06/18/2016 Old TN (myocardial infarction) 06/06/2012 Mixed hyperlipidemia 08/16/2009 Overview: [...] 06/18/2016 08/19/2017 Diastolic CHF 12/28/2015 11/03/2018 Acute TN 05/30/2012 06/06/2012 Chronic ischemic heart disease 01/17/2007 12/25/2018 Pneumonia due to organism Overview: ICD-10 update of inactive term IDIO PERIPH NEURPTHY NOS 07/2018 PURE HYPERCHOLESTEROLEM 04/2009 Overview: Per Lipid Taxonomy. documented as of this encounter (statuses as of 11/11/2023) Immunizations Name Administration Dates Next Due COVID-19 mRNA, LNP-s, No Pre serve, 2-Dose Series ([employer]) 06/17/2021,11/18/2020,10/28/2020 COVID-19, LNP-s, No Preserve , Brennan-sucrose, Ages 12+ ([employer]) 12/22/2021 Covid-19, Mrna, Lnp-s, Pf, B ivalent, [...] - 11/11/2023 2:08 PM EST Andrew Reardon [id number] Andrew Reardon is a 75 year old male who presents for f/u to [facility] for [...] 03/17/2020 CAD (coronary artery disease) Diastolic CHF ([facility]) 12/28/2015 Diastolic dysfunction 11/03/2018 Dyslipidemia, goal LDL below 100 08/16/2009 Per Lipid Taxonomy. 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 Cordon ([facility] radiology [facility]) Repeat radiograph 01/31/2022 showed: . [...] Sanford MD [facility] [address] [place] [address] documented in this encounter Nursing Notes * [...] 11/11/2023 3:00 PM EST Office Visit Cardiology, [facility] [address] [facility] [place] [address] Noel Knapp PA-C [address] [place] [address] Arrived 12/02/2023 8:00 AM EDT Anticoagulation Pharmacy, [facility] [address] [facility] [place] [address] Pharmacist1, [facility] [address] [facility] [place] [address] 12/27/2023 8:40 AM EDT Office Visit General Internal Medicine [facility] [address] [facility] [place] [address] Mario Mosquera MD [address] [facility] [place] [address] 02/11/2024 10:30 AM EDT Office Visit Orthopaedics [facility] [address] [facility] [place] [address] Rafael Sanford MD [address] [place] [address] 06/30/2024 9:40 AM EDT Office Visit Rheumatology [place] [address] [place] [address] Damion Mulligan MD [address] [place] [address] Scheduled Orders Name Type Priority Associated Diagnoses [...] D LEVEL ONCE IN A LIFETIME-USE SMARTSET# [id number] Completed 06/26/2023, 01/16/2023, 06/20/2022, Additional history exists [...] this encounter Medical Devices Implanted Type Area Gun Club Manager Device Identifier Shelf Expiration Date Model / Serial / Lot Lens 24.0 Mx60 - [id number] - [id number] Implanted:Qty: 1 on 01/30/2018 by Russell Alaniz MD at OR [facility] Left: Eye BAUSCH & LOMB : SURGICAL 07/09/2020 MX60-24.0 / [id number] / [id number] Envista Hydrophobic Acrylic Intraoular Lens Implanted:Qty: 1 on 02/11/2018 by Russell Alaniz MD at OR [facility] Right: Eye BAUSCH & LOMB 08/08/2020 [id number] / [id number] / [id number] documented as of this encounter Visit Diagnoses [...] 2 mL 2 mL, Injection, ONCE, On 11/11/23 at 1445, For 1 dose, Lidocaine 1% 1mL Triamcinolone Acetonide 40 mg/mL 1 mL (Final concentration = 20 mg/mL) REFRIGERATE and SHAKE WELL Given 11/11/2023 2:22 PM EST 2 mL Knee Right lidocaine 1% 1 mL - triamcinolone acetonide 40 mg/mL 1 mL inj 2 mL 2 mL, Injection, ONCE, On 11/11/23 at 1445, For 1 dose, Lidocaine 1% [...] and were consensually agreed upon. Care Teams Sports Writer Relationship Specialty Start Date End Date Mario Mosquera MD [address] [place] [address] PCP - General Internal Medicine 11/09/13 documented as of this encounter
--- OUTSIDE RECORDS SUMMARY | 2023-11-12 08:28 | External Medical Summary ---
Author Name Unknown Address Unknown Organization K09:[facility] [place] [address] Laboratory Report Ordering Provider Test Date Status NAFISA BELL1 10/21/2023 07:51:25 Final Therapeutic ranges for non-o perative patients:
Prophylaxsis/treatment of DVT: (Range:2.0-3.0)
Treatment of pulmonary embolism:(Range:2.0-3.0)
Prevention of systemic embolism from:
-tissue heart valves
-acute myocardial infarction
-valvular heart disease
-atrial fibrillation
(Range: 2.0-3.0)
Mechanical prosthetic valves: (Range: 2.5-3.5) Observation Date Value Abnormality Reference (Units ) Status INR in Capillary blood by Coagulation assay 10/21/2023 07:51:25 4.4 (INR) Final Performing Location [facility] [place] [address]
--- OUTSIDE RECORDS SUMMARY | 2023-11-12 08:28 | External Medical Summary | Summary of Care ---
Author Name Unknown Organization [facility] Address [address] [place] [address] Phone [phone] Care Team Providers Care Impact Retail Service Merchandiser Name Role Phone Mario Mosquera MD Primary Care Provider + Reason for Referral * Precert (Within 10 days (routine)) - Pending Review Specialty Diagnoses / Procedures Referred By Contac t Referred To Contact Radiology Diagnoses Coronary artery disease involving curyung coronary artery of curyung heart without angina pectoris Old MT (myocardial infarction) Chest pain, unspecified type Procedures NM MYOCARD PERF IMG SPECT MULT STUDIES WITH PHARM INTERV Nyla Farnsworth MD [address] [place] [address] Referral ID Status Reason Start Date Expiration Date Visits Requested Visits Authorized [id number] Pending Review Precert 10/09/2023 999 999 Reason for Visit * Reason Onset Date Comments Hospital Follow-Up The pt stated he is here to follow up after a recent discharge from [facility] on 10/05/2023. 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 Severe atherosclerotic plaque(s) in the descending aorta PAF (paroxysmal atrial fibrillation) 07/27/2016 High risk for fracture due to osteoporosis by DE XA scan 06/18/2016 Old MT (myocardial infarction) 06/06/2012 Mixed hyperlipidemia 08/16/2009 Overview: [...] 06/18/2016 08/19/2017 Diastolic CHF 12/28/2015 11/03/2018 Acute MT 05/30/2012 06/06/2012 Chronic ischemic heart disease 01/17/2007 12/25/2018 Pneumonia due to organism Overview: ICD-10 update of inactive term IDIO PERIPH NEURPTHY NOS 07/2018 PURE HYPERCHOLESTEROLEM 12/0 04/2009 Overview: Per Lipid Taxonomy. documented as of this encounter (statuses as of 10/21/2023) Immunizations Name Administration Dates Next Due COVID-19 mRNA, LNP-s, No Pre serve, 2-Dose Series ([employer]) 06/17/2021,11/18/2020,10/28/2020 COVID-19, LNP-s, No Preserve , Brennan-sucrose, [...] Sign Reading Time Taken Comments Blood Pressure 112/62 10/09/2023 11:19 AM EST Pulse 55 10/09/2023 11:19 AM EST Temperature 36.7 C (98 F) 10/09/2023 11:19 AM EST Respiratory Rate - - Oxygen Saturation 96% 10/09/2023 11:19 AM EST Inhaled Oxygen Concentration - - Weight 63.3 kg (139 lb 8 oz) 10/09/2023 11:19 AM EST Height - - Body Mass Index 23.21 12/19/2022 12:30 PM EDT documented in this encounter Progress Notes * Nyla Farnsworth MD - 10/09/2023 11:39 AM EST SUBJECTIVE: Andrew Reardon is a 78 year old male. Chief Complaint Patient presents with Hospital Follow-Up The pt stated he is here to follow up after a recent discharge from [facility] on 10/05/2023. HPI: 78 year old YOmale with PMH as listed below presents here for hospital follow up. Pt was having substernal chest pain for few hours, went to hospital for evaluation . Presented to hospital on 10/04/23 . He was found to have EKG without acute change but did respond to nitro pill. Hewas then admitted and treated with observation with following serial cardiac enzyme and adding Ranexa. Labs were overall normal except and Imaging chest x-ray unremarkable. Echocardiogram showed ejection fraction 50-55% with LVH with inferior left ventricular hypokinesis with diastolic dysfunction.He was seen by batt packer and followed . Rest of the hospital course unremarkable . He was sent home on 09/25/23 on rest of the home medication plus Ranexa and Zetia. Since discharge feeling better . Hospital records reviewed and updated. The patient's medication list was reviewed and updated as needed. 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 Cyanocobalamin (B-12) 5000 MCG CAPS Take by mouth. One-A-Day Mens 50+ Oral Tablet Take 1 Tab by mouth daily. Famotidine 20 MG Oral Tablet (Pepcid) Take 1 Tablet by mouth in the morning and 1 Tablet before bedtime. Acetaminophen ER 650 MG Oral Tablet Extended [...] Tablet by mouth daily. 90 Tablet 3 Rosuvastatin Calcium 40 MG Oral Tablet (Crestor) TAKE 1 TABLET BY MOUTH EVERY DAY 90 Tablet 3 Lisinopril 20 MG Oral Tablet (Prinivil) TAKE 1 TABLET BY MOUTH EVERY DAY IN THE MORNING 90 Tablet 1 Warfarin Sodium 1 MG Oral Tablet (Coumadin) Take 1 tablet Mon, Wed, Thur, Fri & Sat or as directed by coag clinic 75 Tablet 3 Warfarin Sodium 5 MG Oral Tablet (Coumadin) TAKE 5MG (1 TABLET) TU & SAT 2.5MG (1/2 TABLET) ALL OTHER DAYS BY MOUTH OR DIRECTED. 45 Tablet 3 Nitroglycerin 0.4 MG Sublingual Tablet Sublingual (Nitrostat) PLACE 1 TAB UNDER THE TONGUE EVERY 5 MINUTES NEEDED FOR PAIN, CHEST. 25 Tablet 11 metFORMIN HCl ER 500 MG Oral Tablet Extended Release 24 Hour (Glucophage XR) Take 1 Tablet by mouthat bedtime. Ranolazine ER 500 MG Oral Tablet Extended Release 12 Hour (Ranexa) Take 1 Tablet by mouth in the morning. No current facility-administered medications for this visit. Review of patient's allergies indicates: No Known Allergies Past Medical History: Diagnosis Date Adverse reaction to DAYSI inhibitor drug 03/17/2020 CAD (coronary artery disease) Diastolic CHF (HCC) 12/28/2015 Diastolic dysfunction 11/03/2018 Dyslipidemia, goal LDL below 100 08/16/2009 Per Lipid Taxonomy. Hereditary and idiopathic peripheral neuropathy High risk for fracture due to osteoporosis by DEXA scan 06/18/2016 HTN, goal below 140/90 01/17/2007 Infarction of kidney (HCC) 12/18/2017 Old MT (myocardial infarction) 06/06/2012 Osteoporosis 06/18/2016 Pre-diabetes 01/07/2020 Reflux esophagitis 01/17/2007 Renal infarct (HCC) 01/09/2017 Splenic infarct 2017 Stenosis of right subclavian artery (HCC) 11/17/2021 Past Surgical History: Procedure Laterality Date CARPAL TUNNEL SURGERY Right 2018 Dr. larsen CATARACT SURGERY,COMPLEX Bilateral 2018 COLONOSCOPY, DIAGNOSTIC (RECTUM) 09/07/2015 adenomatous polyp, diverticulosis, repeat 5 yrs/COLONOSCOPY FLEXIBLE PROXIMAL DIAGNOSTIC performed by Viniico Alarcon MD at ENDOSCOPY [facility] COLONOSCOPY, DIAGNOSTIC (RECTUM) 11/07/2021 diverticulosis / COLONOSCOPY FLEXIBLE PROXIMAL DIAGNOSTIC performed by Vinicio Alarcon MD at ENDOSCOPY [facility] REMOVE CATARACT, INSERT LENS PROSTH Left 01/30/2018 left EXTRACAPSULAR CATARACT REMOVAL WITH INTRAOCULAR LENS performed by Russell Alaniz MD at OR [facility] REMOVE CATARACT, INSERT LENS PROSTH Right 02/11/2018 right EXTRACAPSULAR CATARACT REMOVAL WITH INTRAOCULAR LENS performed by Russell Alaniz MD at OR [facility] TOTAL HIP REPLACEMENT EDU. 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 Comment: [employer] Tobacco Use Smoking status: Former Packs/day: 0.50 Years: 55.00 Additional pack years: 0.00 Total pack years: 27.50 Types: Cigarettes Quit date: 09/24/2005 Years since quittin.0 Smokeless tobacco: Never Vaping Use Vaping Use: Never used Substance and Sexual Activity Alcohol use: Yes Alcohol/week: 8.3 standard drinks of alcohol Types: 10 12 oz of beer per week Comment: about 2 drinks daily Drug use: No Sexual activity: Yes Social Determinants of Health Food Insecurity: No Food Insecurity (11/28/2022) Hunger Vital Sign Worried About Running Out of Food in the Last Year: Never true Ran Out of Food in the Last Year: Never true Family History Problem Relation Age of Onset Heart Disorder Mother Hypertension Mother Stroke Mother Musculo-skeletal Disorder Mother osteoporosis - hip fracture Osteoporosis Mother hip fracture Heart Disorder Father Hypertension Father Diabetes Father Diabetes Grandmother (Paternal) Cancer Son mouth REVIEW OF SYSTEMS: All 10 systems reviewed and negative except mentioned in HPI OBJECTIVE: BP 112/62 | Pulse 55 | Temp 36.7 C (98 F) | Wt 63.3 kg (139 lb 8 oz) | SpO2 96% | BMI 23.21 kg/m | BSA 1.7 m PHYSICAL EXAM: General: alert, healthy, and no distress Head: Normocephalic, No masses, lesions, tenderness or abnormalities Oropharynx: no exudate, no erythema, lips, buccal mucosa, and tongue normal, and mucous membranes are moist Neck: supple, no adenopathy, no bruits, thyroid normal size, non-tender, without nodularity Heart: regular rate & rhythm, no murmur, and no gallops Lungs: chest symmetric with normal AP diameter, no chest deformities noted, no chest wall tenderness, lungs clear to auscultation Abdomen: abdomen soft, non-tender, normal bowel sounds, and no masses or organomegaly Extremities: less than 2 second capillary refill, no joint deformities, effusion, or inflammation ASSESSMENT AND PLAN Chest pain, unspecified type (Primary) - DISCH MED RECON CUR MED LIS - NM MYOCARD PERF IMG SPECT MULT STUDIES WITH PHARM INTERV; Future; Expected date: 10/09/2023 Hospital discharge follow-up - DISCH MED RECON CUR MED LIS Coronary artery disease involving curyung coronary artery of curyung heart without angina pectoris - NM MYOCARD PERF IMG SPECT MULT STUDIES WITH PHARM INTERV; Future; Expected date: 10/09/2023 Continue other current medication including Ranexa Keep cardiology follow-up Stage 3a chronic kidney disease (HCC) Avoid NSAID like ibuprofen,advil, aleve, naproxyn OTC. Drink plenty of fluid ( 60-64 oz/day ) . Will follow closely in future. HTN, goal below 140/90 . 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 | Check-out note: Schedule hospital f/u with cardiology Treatment and plan was discussed with patient and was given opportunity to ask questions which wereanswered appropriately. Patient verbalizing understanding. This note was prepared with the help of fluency and if there is any mis-spelled words , sentences or something which doesn't represent the content of the subject that could be technical error and please refer to the author for clarification. Nyla Farnsworth MD 11:39 AM 10/09/2023 documented in this encounter Nursing Notes * Maurizio Peters LPN - 10/09/2023 11:19 AM EST Chief Complaint Patient presents with Hospital Follow-Up The pt stated he is here to follow up after a recent discharge from [facility] on 10/05/2023. documented in this encounter Plan of Treatment Upcoming Encounters Date Type Department Care Team (Late st Contact Info) Description 11/11/2023 3:00 PM EST Office Visit Cardiology, [facility] [address] [place] [address] Noel Knapp PA-C [address] [place] [address] 12/02/2023 8:00 AM EDT Anticoagulation Pharmacy, [facility] [address] [facility] [place] [address] Pharmacist1, [facility] [address] [facility] [place] [address] 12/27/2023 8:40 AM EDT Office Visit General Internal Medicine [facility] [address] [facility] [place] [address] Mario Mosquera MD [address] [facility] [place] [address] 06/30/2024 9:40 AM EDT Office Visit Rheumatology [facility] [address] [facility] [place] [address] Damion Mulligan MD [address] [place] [address] Scheduled Orders Name Type Priority Associated Diagnoses Orde r Schedule NM MYOCARD PERF IMG SPECT MULT STUDIES WITH PHARM INTERV Cardiology Routine Coronary artery disease involving curyung coronary artery of curyung heart without angina pectoris Old MT (myocardial infarction) Chest pain, unspecified type Expected: 10/09/2023, Expires: 11/06/2024 Health Maintenance Due Date Last Done Comments [...] D LEVEL ONCE IN A LIFETIME-USE SMARTSET# [id number] Completed 06/26/2023, 01/16/2023, 06/20/2022, Additional history exists [...] this encounter Medical Devices Implanted Type Area Abrasive Water Jet Cutter Operator Device Identifier Shelf Expiration Date Model / Serial / Lot Lens 24.0 Mx60 - [id number] - [id number] Implanted:Qty: 1 on 01/30/2018 by Russell Alaniz MD at OR [facility] Left: Eye BAUSCH & LOMB : SURGICAL 07/09/2020 MX60-24.0 / [id number] / [id number] Envista Hydrophobic Acrylic Intraoular Lens Implanted:Qty: 1 on 02/11/2018 by Russell Alaniz MD at OR [facility] Right: Eye BAUSCH & LOMB 08/08/2020 [id number] / [id number] / [id number] documented as of this encounter Visit Diagnoses Diagnosis Chest pain, unspecified type- Primary Hospital discharge follow-up Other follow-up examination Coronary artery disease involving curyung coronary artery of curyung heart without angina pectoris Stage 3a chronic kidney disease (HCC) HTN, goal below 140/90 Unspecified essential hypertension 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 Lupus anticoagulant disorder (HCC) Primary hypercoagulable state Diastolic dysfunction Heart disease, unspecified Old MT (myocardial infarction) Old myocardial infarction THERESA (obstructive sleep apnea) Obstructive sleep apnea (adult) (pediatric) Parathyroid abnormality (HCC) Unspecified disorder of parathyroid gland PAF (paroxysmal atrial fibrillation) ([facility]) Atrial fibrillation Gastroesophageal reflux disease with esophagitis, unspecified whether hemorrhage Senile osteoporosis Mixed hyperlipidemia documented in this encounter Advance Directives [...] and were consensually agreed upon. Care Teams Impact Retail Service Merchandiser Relationship Specialty Start Date End Date Mario Mosquera MD [address] [facility] [place] [address] PCP - General Internal Medicine 11/09/13 documented as of this encounter"
--- NOTE | 2023-11-12 08:36 | Electrocardiogram Report ---
Test Reason : Blood Pressure : / mmHG Vent. Rate : 081 BPM Atrial Rate : 081 BPM P-R Int : 204 ms QRS Dur : 080 ms QT Int : 390 ms P-R-T Axes : -23 019 082 degrees QTc Int : 453 ms Normal sinus rhythm Normal ECG When compared with ECG of 05-OCT-2023 05:13, No significant change Confirmed by Otto Esteves ([id number]) on 11/12/2023 8:36:06 AM Referred By: REFERRED SELF Confirmed By:Otto Esteves
--- OUTSIDE RECORDS SUMMARY | 2023-11-12 09:46 | External Medical Summary | Summary of Care ---
Author Name Unknown Organization [facility] Address [address] [place] [address] Phone [phone] Care Team Providers Care Douper Name Role Phone Mario Mosquera MD Primary Care Provider + Reason for Visit * Reason Comments Follow Up Encounter Details Date Type Department Care Team (Late st Contact Info) Description 11/11/2023 3:00 PM EST Office Visit Cardiology, [facility] [address] [place] [address] Noel Knapp PA-C [address] [place] [address] Hospital discharge follow-up*; Dyslipidemia, goal LDL below 70; Chronic ischemic heart disease; PAF (paroxysmal atrial fibrillation) ([facility]); HTN, goal below 140/90; 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 0 Active Acetaminophen ER 650 MG Oral Tablet [...] (paroxysmal atrial fibrillation) (HCC) Take 1 tablet Sat, Sat, , Sat & Sat or as directed [...] EVERY DAY 90 Tablet 3 10/14/2023 Active Famotidine 20 MG Oral Tablet (Pepcid)Indications :Chronic GERD Take 1 Tablet by mouth every evening. 90 Tablet 3 11/11/2023 Active Famotidine 20 MG Oral Tablet (Pepcid) Take 1 Tablet by mouth in the morning and 1 Tablet before bedtime. 0 06/06/2021 Discontinue d(Refill) documented as of this encounter [...] osteoporosis by DE XA scan 06/18/2016 Old PR (myocardial infarction) 06/06/2012 Mixed hyperlipidemia 08/16/2009 Overview: [...] 06/18/2016 08/19/2017 Diastolic CHF 12/28/2015 11/03/2018 Acute PR 05/30/2012 06/06/2012 Chronic ischemic heart disease 01/17/2007 12/25/2018 Pneumonia due to organism Overview: ICD-10 update of inactive term IDIO PERIPH NEURPTHY NOS 07/2018 PURE HYPERCHOLESTEROLEM 04/2009 Overview: Per Lipid Taxonomy. documented as of this encounter (statuses as of 11/11/2023) Immunizations Name Administration Dates Next Due COVID-19 mRNA, LNP-s, No Pre serve, 2-Dose Series (Filtr8) 06/17/2021,11/18/2020,10/28/2020 COVID-19, LNP-s, No Preserve , Brennan-sucrose, [...] Sign Reading Time Taken Comments Blood Pressure 124/66 11/11/2023 3:21 PM EST Pulse 54 11/11/2023 3:21 PM EST Temperature - - Respiratory Rate 106 11/11/2023 3:21 PM EST Oxygen Saturation - - Inhaled Oxygen Concentration - - Weight 64 kg (141 lb) 11/11/2023 3:21 PM EST Height - - Body Mass Index 23.46 12/19/2022 12:30 PM EDT documented in this encounter Progress Notes * Noel Knapp PA-C - 11/11/2023 3:42 PM EST History of Present Illness: Andrew Reardon is a very pleasant 78 year old male who presents today for hospital discharge follow-up. Patient presented to [facility] on October 04, 2023 after experiencing significant chest discomfort while sitting at home in the recliner. Patient notes working that afternoon without significant difficulty. Initially felt as though he had a pulledmuscle and took 2 Tylenol without benefit. He later had some heartburn and took Tums without symptomatic improvement, then felt uncomfortable. Notes taking two sublingual nitroglycerin with eventual improvement. Notes that the pain was essentially gone by the time EMS arrived. Symptoms unlike priorangina. EKG without acute change. High sensitivity troponin 8.4 then 9.3 pg/mL. Resting echocardiography revealed low-normal left ventricular systolic function, chronically with hypokinesis of the inferior, posterior base. Low-dose Ranexa added without difficulty. Additional medication changes madeincluded the addition of metformin for new onset type 2 diabetes mellitus (hemoglobin A1c 6.6%). Yesterday morning after breakfast he had some chest discomfort aided by one nitroglycerin, after eating left over peel and eat shrimp and pickled eggs. He notes no activity related chest pain. He continues to perform all his normal activities without significant difficulty and without overt change in exercise tolerance. No unusual shortness of breath. No palpitations. No fluid retention. No dizziness or syncope. No melena or hematochezia. Past Medical/Surgical History: ASCVD December 13, 2009 [...] abuse Reflux esophagitis Parathyroid abnormality, followed by [facility] Endocrinology Osteoarthritis Avascular necrosis of the hips. Left rotator cuff tear and possible avascular necrosis, adhesive capsulitis. Idiopathic peripheral neuropathy Chronic alcohol use/abuse Cervicogenic headaches Diverticulosis/diverticulitis Family History: Mother at 83 with an PR. Father at 79 after multiple PR's, CABG surgery, and BiV pacer implantation. Social [...] Tablet Take 1 Tab by mouth daily. Esomeprazole Magnesium 40 MG Oral Capsule Delayed [...] Tablet (Coumadin) Take 1 tablet Mon, Wed, Th, Fri [...] 1 Tablet by mouth in the morning. Ezetimibe 10 MG Oral Tablet (Zetia) TAKE 1 TABLET BY MOUTH EVERY DAY 90 Tablet 3 Isosorbide Mononitrate ER 120 MG Oral Tablet Extended Release 24 Hour (Imdur) TAKE 1 TABLET BY MOUTH EVERY DAY 90 Tablet 3 Famotidine 20 MG Oral Tablet (Pepcid) Take 1 Tablet by mouth in the morning and 1 Tablet before bedtime. (Patient not taking: Reported on 11/11/2023) Acetaminophen ER 650 MG Oral Tablet Extended Release Take 1 Tablet by mouth every 8 hours as needed. No current facility-administered medications for this visit. OBJECTIVE/PHYSICAL EXAMINATION: BP 124/66 | Pulse 54 | Resp (!) 106 | Wt 64 kg (141 lb) | BMI 23.46 kg/m | BSA 1.71 m General: NAD. Pleasant. Comfortable. Cooperative. HENT: Normocephalic. Atraumatic. Eyes: PER. Conjunctiva pink, sclera clear. Neck: Bilateral carotid bruits. No JVD. Heart: Regular, bradycardic, 56 bpm. Grade II/ systolic ejection murmur. Lungs: Decreased. Clear. No wheeze. Abdomen: +BS. Soft. Nontender. No masses or organomegaly. Extremities: No edema. No clubbing. No cyanosis. Limited neurological examination is without focal deficit. Normal affect. Pulses: radial=2/4, posterior tibial=2/4. Data: August 01, 2021 Lexiscan Interpretation Summary (as [...] November 28, 2018, bruce-infarct ischemia now present October 04, 2023 TTE interpretation summary ([facility], Dr. Brown): Sinus bradycardia. Normal LV size. Mild concentric LVH. Mild hypokinesis inferior, posterior base, otherwise normal wall motion. EF 50 to 55%. Grade 1 diastolic dysfunction. Mild aortic valve sclerosis without significant stenosis. EKG on November 11, 2023 revealed sinus bradycardia at 53 bpm with a first-degree AV block and a possible old septal infarct. QTc 409 ms. When compared to prior available tracings, there was no significant change. ASSESSMENT: Hospital discharge follow-up, atypical chest discomfort suggesting GI etiology, ongoing following dietary indiscretion as detailed above. History of GERD, prior imaging with small hiatal hernia ASCVD. Stress testing in July 2021 revealed moderate bruce-infarct ischemia, ischemic burden 10%. Conservative medical management recommended noting the severe atherosclerotic plaques in the aorta. Severe atherosclerotic plaque(s) in the aortic arch and descending aorta. Hypertension, well controlled Dyslipidemia with an optimal LDL goal of < 70 mg/dL. LDL cholesterol 57 mg/dL on October 04, 2023. Prescribed rosuvastatin 40 mg/day and ezetimibe 10 mg/day. Internal carotid artery disease. Duplex in November 2022 revealed stable mild bilateral internal carotid artery disease. + Right subclavian artery stenosis. All blood pressures to be obtained via the left arm for accuracy. Palpitations. Documented to occur in association with sensed ventricular ectopy. Chronically prescribed beta-harley therapy, with mild asymptomatic resting bradycardia Chronic intermittent nocturnal leg cramps. Previously improved with hydration. Quiescent. RECOMMENDATIONS/PLAN: Options of management discussed. Via shared decision- making, we will proceed as follows: Add famotidine 20 mg in the evening. Refer for EGD if ongoing symptoms Continue the current cardiac medication regimen as presently prescribed. Zio monitor to be reconsidered at follow-up Cardiology follow-up as scheduled in February, or as needed. ER with emergencies. Noel Knapp PA-C Department of Cardiology I spent a total of 40-54 minutes (exact time 40 mins) on the date of service in preparation, delivery, and documentation of the care provided to Andrew Reardon excluding any time spent in the performance of separately billed services. This visit involved medical care services related to at least one serious condition or complex condition requiring ongoing care. This chart was completed in part ut [employer] Speech Voice Recognition Software. Grammatical errors, random word insertions, prounoun errors, and incomplete sentences are an occasional consequence of this system due to software limitations, ambient noise, and hardware issues. Any formal questions or concerns about the content, text, or information contained within the body of this dictation should be directly addressed to theprovider for clarification. documented in this encounter Nursing Notes * Nikolai Abraham RN - 11/11/2023 3:20 PM EST Examination Room: room 3e Name: Andrew Reardon Date of : (1945). Reason for Visit: for follow up Interim Hospitalization(s): admitted to [facility] on for 3 days He had chest apain Problems/Concerns: denies Chest Pain/SOB: states had some chest didcomort yesterday and took one nitro, [facility] Discussed: Not applicable [facility] is a way you can talk to your provider online through e-mail. Would you like to sign up? I can activate it for you? ALREADY ACTIVE Patient was instructed to not get up on the exam table until directed and assisted by their provider; patient is to remain seated in the chair/ wheelchair/ exam table for fall prevention and safety reasons. Patient is aware to have assistance to step down off exam table with personnel. Patient voiced full comprehension of instructions. documented in this encounter Plan of Treatment Upcoming Encounters Date Type Department Care Team (Late st Contact Info) Description 12/02/2023 8:00 AM EDT Anticoagulation Pharmacy, [facility] [address] [place] [address] Pharmacist1, [facility] [address] [facility] [place] [address] 12/27/2023 8:40 AM EDT Office Visit General Internal Medicine [facility] [address] [place] [address] Mario Mosquera MD [address] [place] [address] 02/11/2024 10:30 AM EDT Office Visit Orthopaedics [facility] [address] [place] [address] Rafael Sanford MD [address] [place] [address] 06/30/2024 9:40 AM EDT [address] [place], [place] [address] Damion Mulligan MD [facility] [employer] [place], [place] [address] Scheduled Orders Name Type Priority Associated Diagnoses Orde r Schedule EKG COMPLETE (TRACING AND INTERP) EKG Routine Hospital discharge follow-up Ordered: 11/11/2023 Health Maintenance Due Date Last Done Comments [...] D LEVEL ONCE IN A LIFETIME-USE SMARTSET# [id number] Completed 06/26/2023, 01/16/2023, 06/20/2022, Additional history exists [...] this encounter Medical Devices Implanted Type Area Tool And Die Maker Level Five Device Identifier Shelf Expiration Date Model / Serial / Lot Lens 24.0 Mx60 - [id number] - [id number] Implanted:Qty: 1 on 01/30/2018 by Russell Alaniz MD at OR [facility] Left: Eye [employer] : SURGICAL 07/09/2020 MX60-24.0 / [id number] / [id number] Envista Hydrophobic Acrylic Intraoular Lens Implanted:Qty: 1 on 02/11/2018 by Russell Alaniz MD at [facility] Right: Eye [employer] 08/08/2020 [id number] / [id number] / [id number] documented as of this encounter Visit Diagnoses Diagnosis Hospital discharge follow-up- Primary Other follow-up examination Dyslipidemia, goal LDL below 70 Other and unspecified hyperlipidemia Chronic ischemic heart disease Chronic ischemic heart disease, unspecified PAF (paroxysmal atrial fibrillation) (HCC) Atrial fibrillation HTN, goal below 140/90 Unspecified essential hypertension 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 Care Teams Douper Relationship Specialty Start Date End Date Mario Mosquera MD [address] [place] [address] PCP - General Internal Medicine 11/09/13 documented as of this encounter"
[2023-11-12] MEDS: PANTOprazole 40 MG in SYRINGE 0 ML IV SCH (10:46)
--- NOTE | 2023-11-12 12:26 | Gastrointestinal Consultation ---
Date of Consultation November 12, 2023 Assessment & Plan (1) Abdominal pain, epigastric: (2) Abnormal LFTs: (3) Acute cholecystitis: (4) Gall stones: Plan 78 y/o male with epigastric pain, imaging suggestive of gallstones in the GB neck, possible cholecystitis, with elevated LFTs, bilirubin, but MRCP suggestive of no ductal dilation and no evidence for choledocholithiasis. Currently afebrile, abd soft. - Consult surgery to consider cholecystectomy - No plan for ERCP given no sign of biliary stone/obstruction on MR - Keep NPO - IV ABX as per primary team - Supportive care with IVF - Trend LFTs, CBC Thank you for allowing us to participate in the care of this patient. Please call with any acute changes, questions or concerns. Please see addendum below with additional recommendation from my supervising physician. Supervising Physician Co-Signing Physician Notes I agree with pe and plan as documented. He is complaining of abdominal pain. No indication for ercp at this time. GB neck stone likely causing his symptoms- defer to surgery about cholecystectomy. History of Present Illness Reason for Consultation: cholecystitis, elevated lft Requesting Physician: Dr Wang Attending Physician: Laurent Julien MD History of Present Illness This is a 78 y/o male with PMhx chronic diastolic heart failure (EF 55 to 60% TTE 2020), CKD, CAD s/p angioplasty/CVA/PVD, PAF/hypercoagulable state (hx lupus anticoagulant disorder/left renal and splenic infarctions) on Coumadin, HTN, HLD, COPD, prediabetes, alcohol abuse as per records, past tobacco abuse, colon polyps, and others, last admitted 10/04-10/05 for substernal chest pain, new dx'd DM (A1C 6.6%), cardiac w/u unremarkable. Pt developed sudden epigastric/chest pain last evening assoc w/ dry heaves, no vomiting. W/u notable for US ABD cholelithiasis, possible cholecystitis, CBD 3 mm. Labs w/ tbili 2.1, dbili 2,0, AST 46->693, ALT 315->476, ALP 103. Normal lipase, renal fxn, WBC. MRCP w/ gallstones in the GB neck; possible cholecystitis, no IHDD/EHDD dilation, no evidence for choledocholithiasis. General surgery was consulted. Pt started on IVF, ABX. Pt continues with abd discomfort but it's slightly better. No further n/v. No BMs. No melena, hematochezia, hematemesis, fever, chills, SOB, jaundice, icterus. Pt afebrile, mildly hypertensive. He states he drinks 1-2 beers a day. 2 Tylenol a day. No NSAIDs. Last colonoscopy 2021: - Diverticulosis in the sigmoid colon. - The examination was otherwise normal on direct and retroflexion views. - No specimens collected. Allergies Allergy/AdvReac Type Severity Reaction Status Date / Time No Known Allergies Allergy Verified 11/11/23 23:56 Home Medications Medication Instructions Recorded Confirmed Type aspirin 81 mg tablet,delayed 81 mg PO QAM 05/04/19 11/12/23 History release esomeprazole magnesium 40 mg 40 mg PO QAM 05/04/19 11/12/23 History capsule,delayed release isosorbide mononitrate 120 mg 120 mg PO QAM 05/04/19 11/12/23 History tablet,extended release 24 hr nitroglycerin 0.4 mg sublingual 0.4 mg sublingual DIRECTED PRN 05/04/19 11/12/23 History tablet (Nitrostat) Chest Pain vitamin B complex 1 tab PO QAM 05/04/19 11/12/23 History cyanocobalamin (vitamin B-12) 5,000 mcg sublingual DAILY 02/22/20 11/12/23 History 5,000 mcg sublingual tablet lisinopril 20 mg tablet 20 mg PO QAM 05/06/20 11/12/23 History ezetimibe 10 mg tablet 10 mg PO DAILY 02/10/21 11/12/23 History rosuvastatin 40 mg tablet 40 mg PO DAILY 02/10/21 11/12/23 History metoprolol succinate 50 mg 75 mg PO DAILY 05/21/21 11/12/23 History tablet,extended release 24 hr amlodipine 5 mg tablet 5 mg PO DAILY 10/04/23 11/12/23 History multivitamin with minerals-folic 1 tab PO DAILY 10/04/23 11/12/23 History acid 400 mcg-lycopene 370 mcg tablet (One-A-Day Men's 50 Plus) warfarin 5 mg tablet See Rx Instructions .Route .COMPLEX 10/04/23 11/12/23 History metformin 500 mg tablet,extended 500 mg PO QDD #30 tabs 10/05/23 11/12/23 Rx release 24 hr ranolazine 500 mg tablet,extended 500 mg PO DAILY #30 tabs 10/05/23 11/12/23 Rx release,12 hr acetaminophen 650 mg 650 mg PO Q8H PRN Pain 11/11/23 11/12/23 History tablet,extended release famotidine 20 mg tablet 20 mg PO BID 11/11/23 11/12/23 History Patient History Medical History (Updated 11/12/23 @ 00:09 by Ryan Fernandez DO) Aortic 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 Carpal tunnel syndrome of right wrist Diverticulosis of colon Hypospadias Vitamin deficiency Low bone mass Alcohol use Diastolic CHF HTN (hypertension) CAD (coronary artery disease) "2009 - NSTEMI 2012 - anterolateral STEMI, s/p POBA to LAD diagonal artery occlusion" Surgical History Carpal tunnel syndrome History of total right hip replacement Family History Other Diabetes Heart disease Social History Smoking Status: Former smoker Tobacco Type: Cigarettes packs per day: 0.5; Do You Dip or Chew Tobacco: No; Hx Alcohol Use: Yes Alcohol type: beer Alcohol Intake Frequency: 4 or More x per/Week Hx Substance Use: No Preferred Language: Nepali Communication Ability: Effective Visual Impairment: No Limitations Hearing Ability: Normal Extrusion Bender Required: No Beliefs That Will Affect Care: None marital status: Current Living Situation: Spouse current occupational status: retired Other Information That Helps Us Care for You: No Feels Safe at Home: Yes Safety Concerns: Feels Safe At This Time Assistive Devices: None Review of Systems Review of Systems: All systems reviewed & are unremarkable except as noted in HPI & below Physical Exam Constitutional: well developed, well nourished and comfortable; no acute distress Eyes: Sclera anicteric, no conjunctival injection ENMT: moist mucous membranes, no pallor Neck: trachea midline supple Respiratory: normal respiratory effort, lungs clear to auscultation Cardiovascular: RRR Gastrointestinal (Abdomen): + mild epigastric TTP, mild distention, no rebound, guarding. BS x 4 quads Skin: no rashes, warm and dry Neurologic: alert and oriented x 3, no obvious focal neuro deficit Psychiatric: normal mood and affect Results & Data Vital Signs (Past 12 Hours) Vital Signs Temp Pulse Pulse Resp BP BP Pulse Ox 11/12/23 05:57 11/12/23 05:40 36.4 C L 18 148/79 H 96 11/12/23 04:00 72 20 124/74 11/12/23 02:51 75 11/12/23 02:00 81 16 141/81 H 95 11/12/23 01:08 36.8 C 80 22 126/82 95 11/12/23 01:00 74 18 129/78 98 11/11/23 22:56 82 11/11/23 22:53 84 22 95 11/11/23 22:53 84 15 142/106 H 95 11/11/23 22:53 95 11/11/23 21:52 36.8 C 87 20 185/97 H 98 O2 Del Method O2 Flow Rate 11/12/23 05:57 Room Air 11/12/23 05:40 Room Air 11/12/23 04:00 11/12/23 02:51 11/12/23 02:00 Room Air 11/12/23 01:08 Room Air 11/12/23 01:00 Room Air 11/11/23 22:56 11/11/23 22:53 Room Air 11/11/23 22:53 Room Air 11/11/23 22:53 Room Air 0 11/11/23 21:52 Room Air Laboratory Results 11/12/23 11/12/23 11/11/23 Range/Units 06:39 06:23 22:02 WBC 3.44 L 4.79 L (4.8-10.8) K/ul RBC 4.59 L 5.10 (4.70-6.10) M/uL Hgb 14.3 16.0 (14.0-18.0) g/dl Hct 40.4 L 44.9 (42.0-52.0) % MCV 88.0 88.0 (80.0-100.0) fL MCH 31.2 31.4 (25.0-34.0) pg MCHC 35.4 35.6 (32.0-36.0) g/dL RDW Std Deviation 42.3 43.2 (36.4-46.3) fL RDW Coeff of Sena 13.1 13.2 (11.5-14.5) % Plt Count 139 156 (130-400) K/uL MPV 10.5 11.0 (9.4-12.4) fL Immature Gran % (Auto) 0.3 0.4 % Neut % (Auto) 87.5 88.5 % Lymph % (Auto) 8.7 9.0 % Cooke % (Auto) 3.5 1.9 % Eos % (Auto) 0.0 0.2 % Baso % (Auto) 0.0 0.0 % Neut # (Auto) 3.01 4.24 (1.40-6.50) K/uL Lymph # (Auto) 0.30 L 0.43 L (1.20-3.40) K/uL Cooke # (Auto) 0.12 0.09 L (0.11-0.59) K/uL Eos # (Auto) 0.00 0.01 (0.00-0.50) K/uL Baso # (Auto) 0.00 0.00 (0.00-0.20) K/uL Immature Gran # (Auto) 0.01 0.02 (0.01-0.20) K/uL PT 19.8 H (9.0-12.0) Seconds INR 1.9 H (0.9-1.1) APTT 38 H (21-31) Seconds PTT Ratio 1.3 Sodium 139 139 (136-145) mmol/L Potassium 4.0 3.8 (3.5-5.1) mmol/L Chloride 103 102 (98-107) mmol/L Carbon Dioxide 26 23 (21-32) mmol/L Anion Gap 10 14 H (3-11) BUN 14 14 (6-23) mg/dl Creatinine 0.95 1.20 (0.6-1.4) mg/dl Est Cr Clr Drug Dosing 57.1 45.2 ml/min Est GFR ( Amer) 87.9 66.3 ml/min Est GFR (Non-Af Amer) 75.8 57.2 ml/min BUN/Creatinine Ratio 14.7 11.7 (10-20) Glucose 180 H 240 H (70-99(Fasting)) mg/dl POC Glucose 166 H (70-99) mg/dl Estimat Average Glucose 134 mg/dl Hemoglobin A1c 6.3 H (4.5-5.6) % Calcium 10.0 10.6 H (8.6-10.3) mg/dl Magnesium 1.8 (1.7-2.4) mg/dl Total Bilirubin 3.1 H 2.1 H (0.2-1.0) mg/dl Direct Bilirubin 2.0 H (0-0.2) mg/dl AST 693 H 486 H (13-39) U/L ALT 476 H 315 H (7-52) U/L Alkaline Phosphatase 103 98 (34-104) U/L Troponin I High Sens 6.4 7.6 (0-20) pg/ml Total Protein 6.8 8.0 (6.0-8.3) gm/dl Albumin 4.5 5.1 H (3.4-5.0) gm/dl Globulin 2.9 (2.5-4.0) gm/dl Albumin/Globulin Ratio 1.8 (0.9-2) Lipase 41 (11-82) U/L Diagnostic Findings US ABD: FINDINGS: Liver: The liver measures 17.1 cm. Fatty infiltration of the liver. Gallbladder: Cholelithiasis. Thickening of the bladder wall could relate to acute cholecystitis or chronic liver disease. Common bile duct: The common bile duct is normal measuring 0.3 cm. No stones. No dilation. Pancreas: The pancreatic head and body are within normal limits. The tail is not visualized due to overlying bowel gas. Right kidney: The right kidney measures 10.7 cm. There are simple appearing renal cysts. 5.5 cm mass is present. IMPRESSION: 1. Cholelithiasis. Thickening of the bladder wall could relate to acute cholecystitis or chronic liver disease. 2. Fatty infiltration of the liver. 3. Remonstrated by 0.5 cm mass of the right kidney. MRCP: NDINGS: Lower chest: No acute abnormality Liver: Unremarkable. No focal lesions are seen. Gallbladder and biliary tree: Gallstones are seen in the gallbladder neck. The gallbladder wall is thickened measuring approximately 4 mm. No intra- or extrahepatic biliary ductal dilation. Pancreas: Unremarkable, no focal lesions. Spleen: Unremarkable. Adrenals: Unremarkable. Kidneys and ureters: Cysts are seen in the right kidney. Bowel: Diverticulosis is seen without evidence of diverticulitis. Small hiatal hernia is seen. Lymph nodes Retroperitoneal: Unremarkable. Mesenteric: Unremarkable. Peritoneum: Normal Vessels: Unremarkable. Abdominal wall: Unremarkable. Bones: Unremarkable. IMPRESSION: Cholelithiasis and gallbladder wall thickening concerning for cholecystitis. The common bile duct is unremarkable. Additional findings as above.
--- NOTE | 2023-11-12 12:27 | Surgery Progress Note ---
Date of Service November 12, 2023 Assessment & Plan (1) Abdominal pain, epigastric: Plan: Assessment: Patient is 78 years old gentleman with significant past Medical history for chronic diastolic heart failure (EF 55 to 60% TTE 2020), HTN, CAD status post angioplasty/CVA/PVD, PAF/hypercoagulable state (hx lupus anticoagulant disorder/left renal and splenic infarctions) on Coumadin, hyperlipidemia, COPD, prediabetes, alcohol abuse , and past tobacco abuse presen caridad to ED with 5 hour history of epigastric pain, nausea and dry heaves. Ultrasound showing gallstones with gallbladder wall thickening and elevated. t. bili and lfts. MRCP negative for choledocholithiasis but concerning for acute cholecystitis. T. bili and LFTs increased today. Plan: await GI evaluation given increase in t. bili and lfts prior to entertaining cholecystectomy continue IV antibiotics continue pain management as needed continue IV Zofran as needed continue medical management Discussed with Dr. Spencer who agrees with above. Addendum: 3:00 pm Saw patient [facility] Dr. Spencer on rounds, pain now resolved with pain medication. No nausea. Discussed with GI who are not planning ERCP Will plan to repeat am labs tomorrow given rising lfts , t. bili and elevated d. bili okay for clears now , NPO after midnight continue medical management (2) Gall stones: Plan: see above Admission and Anticipated Discharge Date Admission Date: November 12, 2023 Supervising Physician Co-Signing Physician Notes I have seen and examined the patient and agree with the above assessment and plan. In brief, his pain has resolved. No tenderness to palpation in the right upper quadrant on exam. His LFTs continue to rise. I am concerned that he will need ERCP due to the LFTs. We will continue to observe, and recheck labs in the morning. Will continue to follow along. Subjective having epigastric pain about 5-6/10 +nausea pain started last evening around 7 pm Physical Exam Constitutional: WD/WN, vitals as above cooperative and comfortable; no acute distress and not ill appearing Respiratory: normal respiratory effort; no respiratory distress and no labored breathing Gastrointestinal (Abdomen): Inspection/Auscultation: abdomen normal to inspec tion; abdomen not distended Percussion/Palpation: + abdomen tender (epigastrium and RUQ on deep palpation) and abdomen soft; no guarding and abdomen not rigid Skin: no rashes, warm and dry no jaundice Psychiatric: A+Ox3, euthymic affect Results & Data Vital Signs (Past 12 Hours) Vital Signs Temp Pulse Pulse Resp BP Pulse Ox O2 Del Method 11/12/23 08:15 Room Air 11/12/23 05:57 Room Air 11/12/23 05:40 36.4 C L 18 148/79 H 96 Room Air 11/12/23 04:00 72 20 124/74 11/12/23 02:51 75 11/12/23 02:00 81 16 141/81 H 95 Room Air 11/12/23 01:08 36.8 C 80 22 126/82 95 Room Air 11/12/23 01:00 74 18 129/78 98 Room Air Laboratory Results 11/12/23 11/12/23 11/11/23 Range/Units 06:39 06:23 22:02 WBC 3.44 L 4.79 L (4.8-10.8) K/ul RBC 4.59 L 5.10 (4.70-6.10) M/uL Hgb 14.3 16.0 (14.0-18.0) g/dl Hct 40.4 L 44.9 (42.0-52.0) % MCV 88.0 88.0 (80.0-100.0) fL MCH 31.2 31.4 (25.0-34.0) pg MCHC 35.4 35.6 (32.0-36.0) g/dL RDW Std Deviation 42.3 43.2 (36.4-46.3) fL RDW Coeff of [place] 13.1 13.2 (11.5-14.5) % Plt Count 139 156 (130-400) K/uL MPV 10.5 11.0 (9.4-12.4) fL Immature Gran % (Auto) 0.3 0.4 % Neut % (Auto) 87.5 88.5 % Lymph % (Auto) 8.7 9.0 % [place] % (Auto) 3.5 1.9 % Eos % (Auto) 0.0 0.2 % Baso % (Auto) 0.0 0.0 % Neut # (Auto) 3.01 4.24 (1.40-6.50) K/uL Lymph # (Auto) 0.30 L 0.43 L (1.20-3.40) K/uL [place] # (Auto) 0.12 0.09 L (0.11-0.59) K/uL Eos # (Auto) 0.00 0.01 (0.00-0.50) K/uL Baso # (Auto) 0.00 0.00 (0.00-0.20) K/uL Immature Gran # (Auto) 0.01 0.02 (0.01-0.20) K/uL PT 19.8 H (9.0-12.0) Seconds INR 1.9 H (0.9-1.1) APTT 38 H (21-31) Seconds PTT Ratio 1.3 Sodium 139 139 (136-145) mmol/L Potassium 4.0 3.8 (3.5-5.1) mmol/L Chloride 103 102 (98-107) mmol/L Carbon Dioxide 26 23 (21-32) mmol/L Anion Gap 10 14 H (3-11) BUN 14 14 (6-23) mg/dl Creatinine 0.95 1.20 (0.6-1.4) mg/dl Est Cr Clr Drug Dosing 57.1 45.2 ml/min Est GFR ( Amer) 87.9 66.3 ml/min Est GFR (Non-Af Amer) 75.8 57.2 ml/min BUN/Creatinine Ratio 14.7 11.7 (10-20) Glucose 180 H 240 H (70-99(Fasting)) mg/dl POC Glucose 166 H (70-99) mg/dl Estimat Average Glucose 134 mg/dl Hemoglobin A1c 6.3 H (4.5-5.6) % Calcium 10.0 10.6 H (8.6-10.3) mg/dl Magnesium 1.8 (1.7-2.4) mg/dl Total Bilirubin 3.1 H 2.1 H (0.2-1.0) mg/dl Direct Bilirubin 2.0 H (0-0.2) mg/dl AST 693 H 486 H (13-39) U/L ALT 476 H 315 H (7-52) U/L Alkaline Phosphatase 103 98 (34-104) U/L Troponin I High Sens 6.4 7.6 (0-20) pg/ml Total Protein 6.8 8.0 (6.0-8.3) gm/dl Albumin 4.5 5.1 H (3.4-5.0) gm/dl Globulin 2.9 (2.5-4.0) gm/dl Albumin/Globulin Ratio 1.8 (0.9-2) Lipase 41 (11-82) U/L Diagnostic Findings MR MRCP CLINICAL HISTORY: elevated lft, choecystitis TECHNIQUE: Multiplanar multisequence MR images of the abdomen were obtained, as per MRCP protocol. . COMPARISON: Comparison is made to gallbladder ultrasound 11/11/2023 FINDINGS: Lower chest: No acute abnormality Liver: Unremarkable. No focal lesions are seen. Gallbladder and biliary tree: Gallstones are seen in the gallbladder neck. The gallbladder wall is thickened measuring approximately 4 mm. No intra- or extrahepatic biliary ductal dilation. Pancreas: Unremarkable, no focal lesions. Spleen: Unremarkable. Adrenals: Unremarkable. Kidneys and ureters: Cysts are seen in the right kidney. Bowel: Diverticulosis is seen without evidence of diverticulitis. Small hiatal hernia is seen. Lymph nodes Retroperitoneal: Unremarkable. Mesenteric: Unremarkable. Peritoneum: Normal Vessels: Unremarkable. Abdominal wall: Unremarkable. Bones: Unremarkable. IMPRESSION: Cholelithiasis and gallbladder wall thickening concerning for cholecystitis. The common bile duct is unremarkable. Additional findings as above.
[2023-11-12] MEDS: HYDROmorphone INJ 0.5 MG/0.5 ML SYR IV PRN (13:37)
--- NOTE | 2023-11-12 16:43 | Communication Note ---
Date of Service: November 12, 2023 Patient seen and examined at bedside. He is comfortable lying on the bed; not in distress. He reports pain in epigastric and right upper quadrant region Seen by GI and surgery. Liver enzymes reviewed; uptrending. Discussed with GI about potential ERCP; given the MRCP findingGI not planning to do ERCP at the moment. No definitive plan from surgery regarding timing of the laparoscopic cholecystectomy. His PT/INR is 1.9. Will continue to hold Coumadin. Repeat PT/INR tomorrow morning. If it is greater than 1.5; will give him IV vitamin K if patient is undergoing surgery tomorrow. If patient is not undergoing surgery; will bridge over to heparin or Lovenox; with the plan to hold it prior to surgery. Patient was recently hospitalized in September for chest pain. Will obtain cardiac consultation for preop evaluation. On physical exam; Constitutional: Alert oriented x 3; not in distress. Respiratory: normal respiratory effort, lungs clear to auscultation, no wheeze, rales, rhonchi. Normal insp/exp effort, no accessory muscle use Cardiovascular: RRR, no murmur, no edema Vessels: no JVD or carotid bruit Chest: normal inspection of chest Abdomen: Tenderness in right upper quadrant. Musculoskeletal: no cyanosis or clubbing, extremities motor strength 5/5 Skin: no rashes, warm and dry normal turgor Neurologic: PERRL, EOMI, accommodation nl, no face palsy, no dysarthria CN's II- XI intact bilaterally and moves all extremities Psychiatric: A+Ox3, euthymic affect Full progress note to follow tomorrow
[2023-11-13 06:38] LABS: Hematocrit (blood only) 38.1 % (42.0-52.0); Mean Corpuscular Hgb Conc 34.1 g/dL (32.0-36.0); Mean Corpuscular Volume 90.9 fL (80.0-100.0); Mean Platelet Volume 11.1 fL (9.4-12.4); Platelet Count 133 K/uL (130-400); RDW Coefficient of Variation 13.6 % (11.5-14.5); RDW Standard Deviation 45.9 fL (36.4-46.3); Red Blood Count 4.19 M/uL (4.70-6.10); White Blood Count 5.33 K/ul (4.8-10.8)
[2023-11-13 06:57] LABS: Immature Granulocytes # (auto) 0.01 K/uL (0.01-0.20); Immature Granulocytes % (auto) 0.2 %; Lymphocytes # (auto) 0.21 K/uL (1.20-3.40); Lymphocytes % (auto) 3.9 %; Monocytes # (auto) 0.24 K/uL (0.11-0.59); Monocytes % (auto) 4.5 %; Neutrophils # (auto) 4.87 K/uL (1.40-6.50); Neutrophils % (auto) 91.4 %
[2023-11-13 06:59] LABS: INR 1.9 (0.9-1.1); Prothrombin Time 19.7 Seconds (9.0-12.0)
[2023-11-13 07:02] LABS: BUN Creatinine Ratio 12.8 (10-20); Bilirubin Direct 2.8 mg/dl (0-0.2); Calcium 9.1 mg/dl (8.6-10.3); Creatinine Clr Calc Pharmacy 57.7 ml/min; Est GFR (Non-African American) 76.8 ml/min; Potassium 3.9 mmol/L (3.5-5.1); Total Protein 6.1 gm/dl (6.0-8.3)
--- NOTE | 2023-11-13 11:35 | Cardiology Consultation ---
Date of Consultation November 13, 2023 Assessment & Plan (1) Preop cardiovascular exam: (2) Abnormal LFTs: (3) Gall stones: (4) CAD (coronary artery disease): Supervising Physician Co-Signing Physician Notes Attending Staff: Patient seen and evaluated with AP Staff Concur with observations and plans 78 yo man presenting with abdominal pain Dx: Acute cholecystitis Consult for: Preop Evaluation + Chest Pain - 09/2023 Workup started - nuclear stress test ordered as an outpt LVEF - 55%; Inferior/posterior HK - no major valvular disease (09/2023) EKG - no acute ischemic changes Hx: * CAD - POBA of LAD 2011 - small caliber coronaries * HTN * Hyperlipidemia * DM * COPD - former smoker * CVA * PVD- Carotid Disease + aortic arch atheromata/right subclavian stenosis * PAF - on coumadin Plans: * EKG - no active ischemic changes * Troponin negative x 2 * SBP 154 mmHg * Continue Lisinopril 20 mg po per day * Continue Amlodipine 5 mg po per day * Continue Imdur 120 mg po per day * Increase Ranolazine to 500 mg po BID * Continue ASA 81 mg po per day * Continue Toprol 75 mg po per day - HR 56 BPM * AST/ALT markedly elevated- HOLD Crestor 40 mg po per day * LDL 57 - last checked - 09/2023 * Extensive atherosclerosis - may need to consider Repatha as an outpt * Recent ECHO - normal LVEF with WMA - 09/2023 - no need to repeat * IF OR visit - hold coumadin - INR 1.9 - given hx of CVA - Heparin bridge * Patient appears to have extensive vascular/coronary disease with small vessels. Consequently, would opt for conservative approach to CAD - no Cath or nuclear stress test recommended at this time * Goal would be to optimize medications to reduce myocardial demands - Goal SBP 110-120 mmHg - goal HR 50-70 BPM at rest. * Pt presents high risk for any invasive procedure- explained this to the patient and his significant other * Pt being considered for transfer to [facility] for possible GI/Surgical Intervention Ck Ma History of Present Illness Reason for Consultation: Preop for Possible cholecystectomy Requesting Physician: Dr. Julien Attending Physician: Dr. Ma History of Present Illness Patient is a 78-year-old male who presented to [facility] with complaints of abdominal pain and chest pain on 11/12/2023. Diagnosed with acute cholecystitis. Cardiology consulted for preop evaluation. Known to [facility], Owen Knapp PA-C 1. ASCVD December 13, 2009 NSTEMI. December 2009 coronary angiography with branch vessel coronary disease, 80% narrowing of a sub branch of the LAD diagonal with moderate irregularities of other vessels. May 2012 acute anterolateral myocardial infarction secondary to a total occlusion of the LAD diagonal artery status post POBA by Dr. Maier. Residual total occlusion of a posterior branch of the diagonal noted with prior catheterization showing that this vessel was very small in caliber. Additional angiography showed mild, nonobstructive coronary disease with no lesion over 30%. There was moderate LV systolic dysfunction with an LVEF of 40-45% at that time. 2. Severe atherosclerotic plaque(s) in the aortic arch and descending aorta. 3. Left renal and splenic infarctions, July 2016. 4. Right occipital and left cerebellar infarcts. 5. Lupus anticoagulant disorder 6. Hypertension 7. Dyslipidemia with an optimal LDL goal of < 70 mg/dL. 8. Bilateral internal carotid disease without infarction 9. Right subclavian artery stenosis 10. COPD with past tobacco abuse Patient presented to [facility] on October 04, 2023 after experiencing significant chest discomfort while sitting at home in the recliner. Patient notes working that afternoon without significant difficulty. Initially felt as though he had a pulled muscle and took 2 Tylenol without benefit. He later had some heartburn and took Tums without symptomatic improvement, then felt uncomfortable. Notes taking two sublingual nitroglycerin with eventual improvement. Notes that the pain was essentially gone by the time EMS arrived. Symptoms unlike prior angina. EKG without acute change. High sensitivity troponin 8.4 then 9.3 pg/mL. Resting echocardiography revealed low-normal left ventricular systolic function, chronically with hypokinesis of the inferior, posterior base. Low-dose Ranexa added without difficulty. Additional medication changes made included the addition of metformin for new onset type 2 diabetes mellitus (hemoglobin A1c 6.6%). Patient presenting with similar complaints, epigastric pain. Found to have elevated LFT's on arrival. Imaging consistent with gallstones in the GB neck. GI consulted. MRCP without ductal dilatation and no evidence of choledocholithiasis. Surgery consulted to discuss cholecystectomy. Coumadin on hold. HS troponin negative x2 since admission. Chest xray clear. EKG without acute changes. Since admission, abdominal pain improving. No chest pain. He reports his chest pain/epigastric pain he has been experiencing is different than his typical anginal pattern. Allergies Allergy/AdvReac Type Severity Reaction Status Date / Time No Known Allergies Allergy Verified 11/11/23 23:56 Home Medications Medication Instructions Recorded Confirmed Type aspirin 81 mg tablet,delayed 81 mg PO QAM 05/04/19 11/12/23 History release esomeprazole magnesium 40 mg 40 mg PO QAM 05/04/19 11/12/23 History capsule,delayed release isosorbide mononitrate 120 mg 120 mg PO QAM 05/04/19 11/12/23 History tablet,extended release 24 hr nitroglycerin 0.4 mg sublingual 0.4 mg sublingual DIRECTED PRN 05/04/19 11/12/23 History tablet (Nitrostat) Chest Pain vitamin B complex 1 tab PO QAM 05/04/19 11/12/23 History cyanocobalamin (vitamin B-12) 5,000 mcg sublingual DAILY 02/22/20 11/12/23 His tory 5,000 mcg sublingual tablet lisinopril 20 mg tablet 20 mg PO QAM 05/06/20 11/12/23 History ezetimibe 10 mg tablet 10 mg PO DAILY 02/10/21 11/12/23 History rosuvastatin 40 mg tablet 40 mg PO DAILY 02/10/21 11/12/23 History metoprolol succinate 50 mg 75 mg PO DAILY 05/21/21 11/12/23 History tablet,extended release 24 hr amlodipine 5 mg tablet 5 mg PO DAILY 10/04/23 11/12/23 History multivitamin with minerals-folic 1 tab PO DAILY 10/04/23 11/12/23 History acid 400 mcg-lycopene 370 mcg tablet (One-A-Day Men's 50 Plus) warfarin 5 mg tablet See Rx Instructions .Route .COMPLEX 10/04/23 11/12/23 History metformin 500 mg tablet,extended 500 mg PO QDD #30 tabs 10/05/23 11/12/23 Rx release 24 hr ranolazine 500 mg tablet,extended 500 mg PO DAILY #30 tabs 10/05/23 11/12/23 Rx release,12 hr acetaminophen 650 mg 650 mg PO Q8H PRN Pain 11/11/23 11/12/23 History tablet,extended release famotidine 20 mg tablet 20 mg PO BID 11/11/23 11/12/23 History Patient History Medical History (Updated 11/13/23 @ 11:45 by Taylor Andrew PA-C) Aortic 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 Carpal tunnel syndrome of right wrist Diverticulosis of colon Hypospadias Vitamin deficiency Low bone mass Alcohol use Diastolic CHF HTN (hypertension) CAD (coronary artery disease) "2009 - NSTEMI 2011 - anterolateral STEMI, s/p POBA to LAD diagonal artery occlusion" Surgical History Carpal tunnel syndrome History of total right hip replacement Family History Other Diabetes Heart disease Social History Smoking Status: Former smoker Tobacco Type: Cigarettes packs per day: 0.5; Do You Dip or Chew Tobacco: No; Hx Alcohol Use: Yes Alcohol type: beer Alcohol Intake Frequency: 4 or More x per/Week Hx Substance Use: No Preferred Language: Divehi Communication Ability: Effective Visual Impairment: No Limitations Hearing Ability: Normal [place] Manager Required: No Beliefs That Will Affect Care: None marital status: Current Living Situation: Spouse current occupational status: retired Other Information That Helps Us Care for You: No Feels Safe at Home: Yes Safety Concerns: Feels Safe At This Time Assistive Devices: None Review of Systems Review of Systems: All systems reviewed & are unremarkable except as noted in HPI & below Physical Exam Physical Exam: Thin man in NAD Long moustache No elevation in JVP S1, 2/6 systolic murmur, S2 CTA B No LE edema Warm LE Results & Data Vital Signs (Past 12 Hours) Vital Signs Temp Pulse Resp BP Pulse Ox O2 Del Method 11/13/23 07:33 36.6 C 56 L 16 154/68 H 94 Room Air Laboratory Results Cardiac Enzymes 11/13/23 Range/Units 05:43 AST 456 H (13-39) U/L Coagulation 11/13/23 Range/Units 05:43 PT 19.7 H (9.0-12.0) Seconds CBC 11/13/23 Range/Units 05:43 WBC 5.33 (4.8-10.8) K/ul RBC 4.19 L (4.70-6.10) M/uL Hgb 13.0 L (14.0-18.0) g/dl Hct 38.1 L (42.0-52.0) % Plt Count 133 (130-400) K/uL Neut # (Auto) 4.87 (1.40-6.50) K/uL Lymph # (Auto) 0.21 L (1.20-3.40) K/uL [place] # (Auto) 0.24 (0.11-0.59) K/uL Eos # (Auto) 0.00 (0.00-0.50) K/uL Baso # (Auto) 0.00 (0.00-0.20) K/uL Comprehensive Metabolic Panel 11/13/23 Range/Units 05:43 Sodium 141 (136-145) mmol/L Potassium 3.9 (3.5-5.1) mmol/L Chloride 109 H (98-107) mmol/L Carbon Dioxide 25 (21-32) mmol/L BUN 12 (6-23) mg/dl Creatinine 0.94 (0.6-1.4) mg/dl Glucose 174 H (70-99(Fasting)) mg/dl Calcium 9.1 (8.6-10.3) mg/dl Direct Bilirubin 2.8 H (0-0.2) mg/dl AST 456 H (13-39) U/L ALT 458 H (7-52) U/L Alkaline Phosphatase 112 H (34-104) U/L Total Protein 6.1 (6.0-8.3) gm/dl Albumin 4.0 (3.4-5.0) gm/dl Intake and Output 11/12/23 11/13/23 11/13/23 22:59 06:59 14:59 Intake Total 393.75 / 1585.417 100 / 1585.417 100 / 100 Balance 393.75 / 1585.417 100 / 1585.417 100 / 100 Intake: IV 393.75 / 1585.417 100 / 1585.417 100 / 100 Piperacillin/Tazobactam 4.5 gm 100 / 300 100 / 300 100 / 100 In Dextrose 5% Mini-B 100 ml @ 25 mls/hr IV Q8H MAGGIE Rx#: [id number] Sodium Chloride 0.9% 1,000 ml @ 293.75 / 1285.417 125 mls/hr IV .Q8H MAGGIE Rx#: [id number] Other: # Unmeasured Voids 1 Diagnostic Findings Telemetry reviewed: EKG on admission: NSR, normal EKG, no acute changes No significant change from prior EKG in Sep 2023 Echo report reviewed from Sep 2023: Normal LV function with EF 50-55% Mild hypokinesis of the inferior, posterior base otherwise normal wall motion Grade I diastolic dysfunction Aortic sclerosis mild without aortic valvular stenosis (4) CAD (coronary artery disease) Associated angina: without angina Coronary Disease-Associated Artery/Lesion type: [place] artery [place] vs. transplanted heart: [place] heart Qualified Code(s): I25.10 - Atherosclerotic heart disease of [place] coronary artery without angina pectoris
--- NOTE | 2023-11-13 14:24 | Surgery Progress Note ---
Date of Service November 13, 2023 Assessment & Plan (1) Abnormal LFTs: (2) Abdominal pain, epigastric: (3) Acute cholecystitis: Plan 78-year-old gentleman with significant improvement in the upper abdominal pain. He has not had pain for the last 24 hours. His liver function tests continue to rise. His total bilirubin is 4.0 and direct bilirubin is 2.8. I do believe he will need an ERCP for further evaluation and treatment. As this is not available at this institution, I have discussed with the hospitalist and with the patient about possible transfer to an institution where ERCP is available. They are in agreement. We will plan for transfer for ERCP Admission and Anticipated Discharge Date Admission Date: November 12, 2023 Subjective States he is feeling well this morning. Does not have any pain or tenderness in the abdomen. No nausea or vomiting. No fevers or chills. Physical Exam Physical Exam: NAD, A&O x 3 AFVSS Abdomen: Soft, nontender, nondistended Results & Data Vital Signs (Past 12 Hours) Vital Signs Temp Pulse Resp BP Pulse Ox O2 Del Method 11/13/23 07:33 36.6 C 56 L 16 154/68 H 94 Room Air Laboratory Results 11/13/23 Range/Units 05:43 WBC 5.33 (4.8-10.8) K/ul RBC 4.19 L (4.70-6.10) M/uL Hgb 13.0 L (14.0-18.0) g/dl Hct 38.1 L (42.0-52.0) % MCV 90.9 (80.0-100.0) fL MCH 31.0 (25.0-34.0) pg MCHC 34.1 (32.0-36.0) g/dL RDW Std Deviation 45.9 (36.4-46.3) fL RDW Coeff of [place] 13.6 (11.5-14.5) % Plt Count 133 (130-400) K/uL MPV 11.1 (9.4-12.4) fL Immature Gran % (Auto) 0.2 % Neut % (Auto) 91.4 % Lymph % (Auto) 3.9 % [place] % (Auto) 4.5 % Eos % (Auto) 0.0 % Baso % (Auto) 0.0 % Neut # (Auto) 4.87 (1.40-6.50) K/uL Lymph # (Auto) 0.21 L (1.20-3.40) K/uL [place] # (Auto) 0.24 (0.11-0.59) K/uL Eos # (Auto) 0.00 (0.00-0.50) K/uL Baso # (Auto) 0.00 (0.00-0.20) K/uL Immature Gran # (Auto) 0.01 (0.01-0.20) K/uL PT 19.7 H (9.0-12.0) Seconds INR 1.9 H (0.9-1.1) Sodium 141 (136-145) mmol/L Potassium 3.9 (3.5-5.1) mmol/L Chloride 109 H (98-107) mmol/L Carbon Dioxide 25 (21-32) mmol/L Anion Gap 7 (3-11) BUN 12 (6-23) mg/dl Creatinine 0.94 (0.6-1.4) mg/dl Est Cr Clr Drug Dosing 57.7 ml/min Est GFR ( Amer) 89.0 ml/min Est GFR (Non-Af Amer) 76.8 ml/min BUN/Creatinine Ratio 12.8 (10-20) Glucose 174 H (70-99(Fasting)) mg/dl Calcium 9.1 (8.6-10.3) mg/dl Total Bilirubin 4.0 H (0.2-1.0) mg/dl Direct Bilirubin 2.8 H (0-0.2) mg/dl AST 456 H (13-39) U/L ALT 458 H (7-52) U/L Alkaline Phosphatase 112 H (34-104) U/L Total Protein 6.1 (6.0-8.3) gm/dl Albumin 4.0 (3.4-5.0) gm/dl
[2023-11-13] MEDS ORDERED: Heparin IV Adult Wt-Based Low-Dose *NO* INITIAL Bolus Protocol IV SCH (16:41)
--- NOTE | 2023-11-13 16:41 | Hospitalist Progress Note ---
Date of Service November 13, 2023 Assessment & Plan (1) Abdominal pain, epigastric: Plan: 78-year-old male with PMH of mixed hyperlipidemia, [place], [place], paroxysmal A-fib, stenosis of right subclavian artery, HTN, CAD, aortic abnormality, diastolic dysfunction, reflux esophagitis, CKD stage III, osteoporosis, lupus anticoagulant disorder, splenic infarct presented with right upper quadrant pain and epigastric pain for about 1 day associated with dry heaves. Denies any febrile illness or diarrhea or constipation at presentation. He is being managed for the following: Acute cholecystitis Cholelithiasis Transaminitis: Likely secondary to above. Crestor on hold. Patient presenting with upper abdominal pain, GB US with cholelithiasis and acute cholecystitis. MRCP with cholelithiasis and cholecystitis. Elevated LFT at presentation, T. bili and direct bilirubin uptrending. GI on board, general surgery on board -recommending transfer for ERCP prior to surgical consideration. Initiated transfer process with [facility] Cohn, accepting physician is Dr. Noland. N.p.o., gentle IV fluid, pain under control per patient today. Patient was started on Zosyn 3/, continue. INR 1.9, will initiate heparin bridge. Cardiology evaluated for preop clearance, high risks for any invasive procedure. Other chronic medical condition: Continue with/resume home meds as and when able. 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 Statin on hold. Ranexa increased to 500 mg twice daily per cardio. CVA: On aspirin/statin/Coumadin at home. Statin and Coumadin on hold. Initiate heparin bridge 11/12. Lupus anticoagulant disorder: On Coumadin at home, INR 1.9, initiate heparin bridge. Obstructive sleep apnea: Currently not using CPAP GERD: Continue with Pepcid and Protonix Hyperlipidemia: Statin on hold due to transaminitis Hypertension: Continue home lisinopril, Imdur, amlodipine. Monitor. Parathyroid abnormality: Mildly elevated PTH, under observation by endocrinology as an outpatient. Current diastolic dysfunction: Echo in September 2023 with EF of 50 to 55%. Mild hypokinesis inferior posterior base. GERD 1 diastolic dysfunction. Monitor for volume overload. Diabetes: Hold home oral medications including metformin. Sliding scale insulin while in hospital. Paroxysmal A-fib: Continue home metoprolol, Coumadin on hold, heparin bridge. Right subclavian artery stenosis: Check blood pressure in the left arm. History of tobacco abuse, Possible COPD: Continue to monitor. DVT prophylaxis: Heparin bridge Disposition: Medical floor, awaiting transfer to [facility] for ERCP Full code Admission and Anticipated Discharge Date Admission Date: November 12, 2023 Subjective Patient was seen and examined at bedside. Patient was lying in bed, on room air, resting comfortably, not in any acute distress. Patient is n.p.o., reports significant improvement in his RUQ pain. Patient's at bedside who was also updated on plan of care. Discussed with surgery, plan for ERCP, not available at this institution, initiated transfer process, patient accepted at [facility] for ERCP. Accepting physician Dr. Noland. Denies headache, dizziness, fever, chills. Physical Exam Physical Exam: General- Not in distress Head- atraumatic Eyes- PERRL. ENT- oropharynx clear Neck- supple, no JVD Lungs- clear to auscultation no wheezing or crackles. Heart- regular rhythm; no murmur, no gallop. Abdomen- normal bowel sounds, soft, nontender, no distension. Extremities- no pretibial edema, no erythema seen. Neuro- alert, oriented PERRL, no facial palsy; no dysarthria; moves extremities. Skin- warm & dry Results & Data Results & Data Vital Signs (Past 12 Hours) Vital Signs Temp Pulse Resp BP Pulse Ox O2 Del Method 11/13/23 15:15 36.6 C 85 16 128/70 95 Room Air 11/13/23 07:33 36.6 C 56 L 16 154/68 H 94 Room Air
[2023-11-13] MEDS ORDERED: D5W AND NSS 1,000 ML IV SCH (16:45)
--- NOTE | 2023-11-13 16:48 | Discharge Summary ---
Date of Service November 13, 2023 Admission HPI Per Admitting Provider 78-year-old male with past medical history significant for parathyroid abnormal, mixed hyperlipidemia, obstructive sleep apnea, history of AR, paroxysmal atrial fibrillation, stenosis of right subclavian artery, hypertension, history of CAD, aortic arch anomaly, diastolic dysfunction, reflux esophagitis, chronic kidney stage III, osteoporosis, lupus anticoagulant disorder, splenic infarct, presents with epigastric pain started last night 7 PM associated with dry heaves. Currently pain is much improved. Denies chest pain. No shortness of breath. No cough. No fevers. No diarrhea or constipation. Micturating okay. No headache. No runny nose or sore throat. No cough. Current resting comfortably and hemodynamically stable. Patient was in the hospital in September 2023 with chest pain. At that time workup with echo, EKG and troponin were okay and Ranexa was added. And he followed with cardiology yesterday and recommended EGD and Pepcid was added. Past medical history as mentioned above Past surgical history. Right carpal tunnel surgery. Bilateral cataract surgery. Colonoscopy. Right total hip replacement Social history. . Quit smoking in 2005. Smoked half pack a day for 55 years. Alcohol drinks about 2 drinks daily. No drug use. Family history. Father had diabetes. Heart disorder. Hypertension. Mother had heart disorder. Hypertension. Osteoporosis. Stroke. Paternal grandmother had diabetes. Son had mouth cancer Admission Exam Per Admitting Provider General- Not in distress Head- atraumatic Eyes- PERRL. ENT- oropharynx clear Neck- supple, no JVD Lungs- clear to auscultation no wheezing or crackles. Heart- regular rhythm; no murmur, no gallop. Abdomen- normal bowel sounds, soft, nontender, no distension. Extremities- no pretibial edema, no erythema seen. Neuro- alert, oriented PERRL, no facial palsy; no dysarthria; moves extremities. Skin- warm & dry Principal Diagnosis Acute cholecystitis Discharge Exam General- Not in distress Head- atraumatic Eyes- PERRL. ENT- oropharynx clear Neck- supple, no JVD Lungs- clear to auscultation no wheezing or crackles. Heart- regular rhythm; no murmur, no gallop. Abdomen- normal bowel sounds, soft, nontender, no distension. Extremities- no pretibial edema, no erythema seen. Neuro- alert, oriented PERRL, no facial palsy; no dysarthria; moves extremities. Skin- warm & dry Discharge Data Allergies Allergy/AdvReac Type Severity Reaction Status Date / Time No Known Allergies Allergy Verified 11/11/23 23:56 Consultations 11/12/23 00:05 Consult General Surgery Routine ED Decision to Admit Stat 11/12/23 08:00 Consult Gastroenterology Routine 11/13/23 08:00 Consult Cardiology Routine 11/13/23 15:49 Burn CD for patient Routine Ordered Studies 11/11/23 22:53 US gallbladder Stat 11/12/23 04:19 MR MRCP Urgent Hospital Course (1) Abdominal pain, epigastric: 78-year-old male with PMH of mixed hyperlipidemia, [place], [place], paroxysmal A-fib, stenosis of right subclavian artery, HTN, CAD, aortic abnormality, diastolic dysfunction, reflux esophagitis, CKD stage III, osteoporosis, lupus anticoagulant disorder, splenic infarct presented with right upper quadrant pain and epigastric pain for about 1 day associated with dry heaves. Denies any febrile illness or diarrhea or constipation at presentation. He was managed for the following: Acute cholecystitis Cholelithiasis Transaminitis: Likely secondary to above. Crestor on hold. Patient presenting with upper abdominal pain, GB US with cholelithiasis and acute cholecystitis. MRCP with cholelithiasis and cholecystitis. Elevated LFT at presentation, T. bili and direct bilirubin uptrending. GI on board, general surgery on board -recommending transfer for ERCP prior to surgical consideration. Initiated transfer process with Elina Cohn, accepting physician is Dr. Noland. N.p.o., gentle IV fluid, pain under control per patient today. Patient was started on Zosyn 3/, continue. INR 1.9, initiate heparin bridge upon transfer until Sx intervention planned. monitor pt/inr Cardiology evaluated for preop clearance, high risks for any invasive procedure. Other chronic medical condition: Continue with/resume home meds as and when able. 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 Statin on hold. Ranexa increased to 500 mg twice daily per cardio. CVA: On aspirin/statin/Coumadin at home. Statin and Coumadin on hold. Initiate heparin bridge 11/12. Lupus anticoagulant disorder: On Coumadin at home, INR 1.9, initiate heparin bridge. Obstructive sleep apnea: Currently not using CPAP GERD: Continue with Pepcid and Protonix Hyperlipidemia: Statin on hold due to transaminitis Hypertension: Continue home lisinopril, Imdur, amlodipine. Monitor. Parathyroid abnormality: Mildly elevated PTH, under observation by endocrinology as an outpatient. Current diastolic dysfunction: Echo in September 2023 with EF of 50 to 55%. Mild hypokinesis inferior posterior base. GERD 1 diastolic dysfunction. Monitor for volume overload. Diabetes: Hold home oral medications including metformin. Sliding scale insulin while in hospital. Paroxysmal A-fib: Continue home metoprolol, Coumadin on hold, heparin bridge. Right subclavian artery stenosis: Check blood pressure in the left arm. History of tobacco abuse, Possible COPD: Continue to monitor. DVT prophylaxis: Heparin bridge Disposition: Medical floor, awaiting transfer to [facility] for ERCP Full code Patient is being discharged to [facility] for ERCP. Patient will need heparin bridge initiated upon transfer at [facility]. IVF and hep drip will be held during transfer process as they have not yet been started. Home Health Attestation I certify that this patient is under my care and that I, or a physicians family assistant working with me, had a face to-face encounter that meets the home health [id number] encounter requirements with this patient. The encounter with the patient was in whole, or in part, for the following medical condition, which is the primary reason for home health care (list medical condition): I certify that, based on my findings, the following services are medically necessary home health services: My clinical findings support the need for the above services because: Further, I certify that my clinical findings support that this patient is homebound (i.e. absences from home require considerable and taxing effort and are for medical reasons or faith services or infrequently or of short duration when for other reasons) because: Certification for Home Health Services: Based on the above findings, I certify that this patient is confined to the home and needs intermittent long-term care, physical therapy and/or speech therapy or continues to need occupational therapy. The patient is under my care, and I have initiated the establishment of the plan of care. This patient will be followed by a physician who will periodically review the plan of care. Total Time Total Time Spent Total Time Spent (In Minutes): 45 Discharge Plan Discharge Items Patient Disposition: Transfer Acute Care Hospital Reason For Visit: CHOLECYSTITIS Discharge Diagnosis: Acute cholecystitis Cholelithiasis Transaminitis Activity: As commented below Activity Comment: Per tertiary care recommendation. Non-emergency contact: Primary Care Provider Call non-emergency contact if: you have any medication questions Follow-up/Referrals: Mario Mosquera MD [Primary Care Provider] - Diet: Other - See Diet Comment Diet Comment: NPO Addtl Attending Provider Instructions: Your prior to arrival Home medications are continued as it is in discharge med rec. Your current inpatient medications are copied and pasted here for the sake of comparison. Current Inpatient Medications Amlodipine Besylate (Amlodipine Besylate 5 Mg Tab) 5 mg PO DAILY [facility] Stop: 12/12/23 08:59 Last Admin: 11/13/23 08:06 Dose: 5 mg Aspirin (Aspirin 81 Mg Ectab) 81 mg PO QAM [facility] Stop: 12/12/23 08:59 Last Admin: 11/12/23 07:51 Dose: 81 mg Cyanocobalamin (Cyanocobalamin (B-12) 2,500 Mcg Tablet) 5,000 mcg SL DAILY [facility] Stop: 12/12/23 08:59 Last Admin: 11/13/23 08:06 Dose: 5,000 mcg Ezetimibe (Ezetimibe 10 Mg Tab) 10 mg PO DAILY [facility] Stop: 12/12/23 08:59 Last Admin: 11/13/23 08:06 Dose: 10 mg Heparin Sodium/Dextrose (Heparin Iv Adult Wt-Based Low-Dose *No* Initial Bolus Protocol) 1 each IV ONE STA; Protocol Stop: 11/13/23 16:41 Hydromorphone HCl (Hydromorphone Inj 0.5 Mg/0.5 Ml Syr) 0.5 mg IV Q4H PRN PRN Reason: Mod-Sev Pain (Scale 4-10) Stop: 11/26/23 05:39 Last Admin: 11/12/23 13:37 Dose: 0.5 mg Piperacillin Sod/Tazobactam (Sod 4.5 gm/ Dextrose) 100 mls @ 25 mls/hr IV Q8H [facility]; Protocol Stop: 11/22/23 05:59 Last Admin: 11/13/23 13:50 Dose: 25 mls/hr Famotidine (Pepcid 20mg Iv Push) 20 mg in 5 mls @ 2.5 mls/min IV Q12H [facility] Stop: 12/12/23 08:59 Last Admin: 11/13/23 08:06 Dose: 2.5 mls/min Pantoprazole Sodium 40 mg/ (Syringe) 10 mls @ 5 mls/min IV DAILY@1100 [facility] Stop: 12/12/23 10:59 Last Admin: 11/13/23 10:49 Dose: 5 mls/min Dextrose/Sodium Chloride (D5w And Nss) 1,000 mls @ 60 mls/hr IV .[id number] [facility] Stop: 11/15/23 02:04 Heparin Sodium/Dextrose (Heparin Sodium/Dextrose) 25,000 units in 500 mls @ 0.02 mls/hr IV .Q24H [facility]; Protocol Stop: 12/13/23 16:59 Isosorbide Mononitrate (Isosorbide [place] Extended Rel 60 Mg Tabcr) 120 mg PO QAM [facility] Stop: 12/12/23 08:59 Last Admin: 11/13/23 08:06 Dose: 120 mg Lisinopril (Lisinopril 20 Mg Tab) 20 mg PO QAM [facility] Stop: 12/12/23 08:59 Last Admin: 11/13/23 08:06 Dose: 20 mg Metoprolol Succinate (Metoprolol Succ 25mg Ext Rel Tab) 75 mg PO DAILY [facility] Stop: 12/12/23 08:59 Last Admin: 11/13/23 08:06 Dose: 75 mg Multivitamins/Minerals (Cerovite Adv Formula Tab) 1 tab PO DAILY [facility] Stop: 12/12/23 08:59 Last Admin: 11/13/23 08:08 Dose: 1 tab Nitroglycerin (Nitroglycerin Sl 0.4 Mg/Tab Tab) 0.4 mg SL UD PRN PRN Reason: Chest Pain Stop: 12/12/23 05:39 Ondansetron HCl (Ondansetron Inj 2 Mg/Ml 2 Ml Vial) 4 mg IV Q6H PRN PRN Reason: Nausea Stop: 12/12/23 05:39 Ranolazine (Ranolazine 500 Mg Er Tab) 500 mg PO BID [facility] Stop: 12/13/23 20:59 Rosuvastatin Calcium (Rosuvastatin Calcium 20 Mg Tab) 40 mg PO DAILY [facility] Stop: 12/12/23 08:59 Last Admin: 11/13/23 08:06 Dose: 40 mg Vitamin B Complex (Vitamin B Complex Tab) 1 tab PO QAM [facility] Stop: 12/12/23 08:59 Last Admin: 11/13/23 08:07 Dose: 1 tab Pending Studies at Discharge: No Stand-Alone Forms: My [facility] Skilled Items Patient informed of condition?: Yes DNR: No Discharge Level of Care: Other Communicable Disease: No Discharge Prognosis: Other Lines: Peripheral IV Urinary Catheter: No Medications and DC Order Prescriptions: Continued ezetimibe 10 mg tablet 10 mg PO DAILY rosuvastatin 40 mg tablet 40 mg PO DAILY aspirin 81 mg tablet,delayed release (DR/EC) 81 mg PO QAM isosorbide mononitrate 120 mg tablet extended release 24 hr 120 mg PO QAM esomeprazole magnesium 40 mg capsule,delayed release(DR/EC) 40 mg PO QAM nitroglycerin [Nitrostat] 0.4 mg tablet, sublingual 0.4 mg Sublingual DIRECTED PRN (Reason: Chest Pain) Patient Comments: 0.4 mg Sublingual VERY 5 MINUTES FOR UP TO 3 DOSES PRN FOR CHEST PAIN. CALL 911 IF PAIN PERSISTS; Rx Instructions: 0.4 mg Sublingual VERY 5 MINUTES FOR UP TO 3 DOSES PRN FOR CHEST PAIN. CALL 911 IF PAIN PERSISTS; vitamin B complex tablet 1 tab PO QAM cyanocobalamin (vitamin B-12) 5,000 mcg Tablet, Sublingual 5,000 mcg SUBLINGUAL DAILY lisinopril 20 mg tablet 20 mg PO QAM metoprolol succinate 50 mg tablet extended release 24 hr 75 mg PO DAILY amlodipine 5 mg tablet 5 mg PO DAILY One-A-Day Men's 50 Plus 400-370 mcg Tablet 1 tab PO DAILY warfarin 5 mg tablet See Rx Instructions .ROUTE .COMPLEX Rx Instructions: TAKES 5 MG ON TU & SAT., THEN 2.5 MG SUN, MON, WED, TH, & FRI. metformin 500 mg Tablet Extended Release 24 Hr 500 mg PO QDD Qty: 30 1RF ranolazine 500 mg Tablet Extended Release 12 Hr 500 mg PO DAILY Qty: 30 1RF acetaminophen [Tylenol Extended Release] 650 mg Tablet Extended Release 650 mg PO Q8H PRN (Reason: Pain) famotidine 20 mg tablet 20 mg PO BID Discharge Orders: Discharge Order (Routine); Ordered 11/13/23 Ordered By: Jae Velasquez Admission Data Admit Date/Time: 11/12/23 04:19 Attending Provider: Jae Velasquez Admit Provider: Antwon Wang Primary Care Provider: Mario Mosquera Other Providers: Antwon Wang; Khadijah Wan; Javier Nance; Hussain Almonte; Nena Landrum; Tamiko Weber; Geno Morton; Estella Whittaker; Ricco Ayers; Oscar Kessler; Ellie Waggoner; Sonam Sinclair; Myesha Sauer; Rozina Naidu; Radha Hill; Dee Dee Wilson; Johanna Martinez; Barry Barragan; Kevin Booker; Blair Fernando; Lea Ling; Batool Morrissey Jr; Lea Chatman; Willem Cedeno; Timo Brown; Goyo Temple; Virgilio Wen; Noel Knapp; Taylor Andrew; Jailene Lopez; Lea Kwong; James Dennis; Adelfo Cooper; Radha Alicia; Karly Atkinson; Sejal Harper; Ck Ma
[2023-11-13] MEDS ORDERED: HEPARIN SODIUM/DEXTROSE 25,000 UNITS/500 ML BAG IV SCH (17:00)
[2023-11-13] MEDS ORDERED: RANOLAZINE 500 MG ER TAB PO SCH (21:00)
== END 2023-11-13 17:16 | disposition short-term general hospital (02) | DRG 445 ==
LOC: ED 21:50 → 3N 11-12 04:19 → SUATTDRO 11-12 04:19 → 3N 11-12 05:23
DX: Z79.84 Long term (current) use of oral hypoglycemic drugs; M81.0 Age-related osteoporosis without current pathological fracture; I70.0 Atherosclerosis of aorta; Z86.73 Personal history of transient ischemic attack (TIA), and cerebral infarction without residual deficits; G47.33 Obstructive sleep apnea (adult) (pediatric); Z87.891 Personal history of nicotine dependence; E11.51 Type 2 diabetes mellitus with diabetic peripheral angiopathy without gangrene; E78.2 Mixed hyperlipidemia; I25.10 Atherosclerotic heart disease of native coronary artery without angina pectoris; J44.9 Chronic obstructive pulmonary disease, unspecified; E11.22 Type 2 diabetes mellitus with diabetic chronic kidney disease; Z82.49 Family history of ischemic heart disease and other diseases of the circulatory system; Z79.82 Long term (current) use of aspirin; K21.00 Gastro-esophageal reflux disease with esophagitis, without bleeding; I77.1 Stricture of artery; Z79.01 Long term (current) use of anticoagulants; Z79.899 Other long term (current) drug therapy; I13.0 Hypertensive heart and chronic kidney disease with heart failure and stage 1 through stage 4 chronic kidney disease, or unspecified chronic kidney disease; D68.62 Lupus anticoagulant syndrome; Z83.3 Family history of diabetes mellitus; Z82.3 Family history of stroke; Z86.2 Personal history of diseases of the blood and blood-forming organs and certain disorders involving the immune mechanism; Z82.62 Family history of osteoporosis; I48.0 Paroxysmal atrial fibrillation; I50.32 Chronic diastolic (congestive) heart failure; K80.00 Calculus of gallbladder with acute cholecystitis without obstruction; N18.30 Chronic kidney disease, stage 3 unspecified; I25.2 Old myocardial infarction